=== PATIENT | female | born 1945 | race Caucasian/White ===

== ENCOUNTER 2023-12-25 09:56 | Outpatient (OUT) | payer MEDICARE, OTHER, SELFPAY ==
--- NOTE | 2023-12-25 10:17 | CT_ITS ---
The [address] [address] Patient Name: PILO GREGORY MRN: [id number] date: 1945 Sex: F Assigned Patient Location: CT Current Patient Location: CT Accession/Order Number: [id number] Exam Date: 12/25/2023 10:11 Report Date: 12/25/2023 15:33 At the request of: DAYANNA LOBO Procedure: CT chest wo con EXAM: CT chest wo con HISTORY: Multiple Pulmonary Nodules R91.8 COMPARISON: CT chest 11/03/2022. TECHNIQUE: CT imaging obtained through the chest without intravenous contrast. Coronal and axial MIP reformatted images obtained. Dose reduction techniques utilized. FINDINGS: Heart size is normal. No pericardial effusion. Enlarged pulmonary artery measuring 3.2 cm suggesting pulmonary hypertension. No thoracic aortic aneurysm. Extensive prominent mediastinal and hilar lymph nodes as on prior, most of which appear calcified. Central tracheobronchial tree is patent. No pleural effusion or pneumothorax. Innumerable centrilobular and tree-in-bud type nodules predominantly throughout the perihilar and midlung regions are significantly increased from prior, with some new areas of conglomerative opacity and postobstructive atelectasis. Nodules are overall increased, for example in the anterior right upper lobe on series 4 image 36, measuring 7 mm, previously 6 mm. Bones and soft tissues: No suspicious bone findings. Partially imaged upper abdomen: Limited. The spleen is enlarged measuring 13.7 cm AP. Calcified gallstones. CT/CT chest wo con IMPRESSION: Interval significant increase in scattered perihilar and midlung predominant centrilobular and tree-in-bud type nodules since 11/03/2022, with a superimposed acute on chronic infectious process not excluded, including atypical mycobacteria. Extensive prominent mostly calcified mediastinal and hilar lymph nodes suggesting granulomatous disease, especially sarcoidosis. Splenomegaly. Electronically authenticated by: LINDA PARADA Date: 12/25/2023 15:33
== END 2023-12-25 09:57 | disposition home or self-care (01) ==
LOC: CT 10:00
PROVIDERS: PCP Family Medicine; Visit Provider Internal Medicine
DX: R91.8 Other nonspecific abnormal finding of lung field (principal)
CPT/HCPCS: 71250

== ENCOUNTER 2024-01-01 12:11 | Outpatient (OUT) | payer MEDICARE, OTHER, SELFPAY ==
--- OUTSIDE RECORDS SUMMARY | 2024-01-01 12:14 | XMS_ITS | CCD ---
Author Name Unknown Address [address] [place] [address] Organization [facility] Care Team Providers Care Licensed Acupuncturist Name Role Phone EMILY YIN Unavailable Unavailable [...] KATERINA Aparicio Primary Care Unavailable TOMLIN, DR KATERINA Aparicio Admitting Unavailable TOMLIN, DR [...] Translations: [IODINE] Drug Allergy 11-03-2006 AOF, Unknown [facility] Repository Medications Current Medications Medication Drug Class(es) Dates Sig (Normalized) Sig (Original) [id number] 200 actuat albuterol 0.09 mg/actuat metered dose [...] STRUCTURES ARE THE SOLE RESPONSIBILITY OF THE FINANCIAL AID COUNSELOR SUBMITTING THE ORIGINAL REPORT (NOT THIS ADDENDUM) Electronically signed by: SUKHJINDER MOONEY MD Addendum Ends Patient Name: PILO GREGORY STUDY: CT CARDIAC SCORING; 03/24/2023 10:58 am INDICATION: htn, hyperlipedmia E78.5: Hyperlipidemia R07.89: Chest tightness. COMPARISON: None. ACCESSION NUMBER(S): [id number] ORDERING CLINICIAN: BROOKS CASTRO TECHNIQUE: Using prospective [...] al. JACC 2015 (http://dx.doi.org/10. 1016/j.j [email or web address]) Reading Tube Draw Helper: Dr. Valerio Morris, Date: 03/24/2023 11:23 am Electronically signed by: SUKHJINDER MOONEY MD Normal [facility] CT Cardiac Scoringon 023 CT Cardiac Scoring Normal [facility] 250 DO Work Phone: Tobacco Screening.on 023 Tobacco use status CPHS b) No [facility] 250 DO Work Phone: [facility] CARDIAC STRESS/REST INJE CTIONon 03-01-2023 [facility] CARDIAC STRESS/REST INJECTION Patient Name: PILO GREGORY STUDY: MYOCARDIAL PERFUSION STRESS TEST WITH EXERCISE CONVERTED TO LEXISCAN Performing facility: [facility], [address] [place] [address], [address] [place], [place] [id number] [facility] Provider: Brooks Castro MD, FACC PCP: Dr. Ellis Tomlin Supervising provider: Haley Osullivan MD, FACC INDICATION: Dyspnea Chest tightness HISTORY: Gender: F; Age: 77 y/o ; Height: 0 cm; Weight: 0 kg. Chest Pain; High Cholesterol; SOB; Denies smoking. COMPARISON: No comparison. ACCESSION NUMBER(S): [id number]; [id number]; [id number] ORDERING CLINICIAN: BROOKS CASTRO TECHNIQUE: ONE DAY [...] Electronically signed by: HALEY OSULLIVAN MD Normal [facility] No Panel Informationon 03-01 Normal -[facility] 250 DO Work Phone: LIPID PROFILEon 02-27-2023 CHOL-HDL RATIO NORM SEE BELOW Normal [facility] Comment on above: Result Comment: 3.3 - 4.4 LOW RISK 4.4 - 7.1 AVERAGE RISK 7.1 - 11.0 MODERATE RISK >11.0 HIGH RISK Performed By: #### L IPID #### [facility] [address] [place], [place] [address] Dr. Krystle Clement Cholesterol [Mass/Vol] 211 mg/dL Critically high <=200 [facility] Comment on above: Performed By: #### L IPID #### [facility] [address] [place], [place] [address] Dr. Krystle Clement Cholesterol in HDL [Mass/Vol] 52 mg/dL Normal 40-60 [facility] Comment on above: Performed By: #### L IPID #### [facility] [address] [place] [address] [address] Krystle Clement Cholesterol in LDL [Mass/Vol] 143.0 mg/dL Normal [facility] Comment on above: Performed By: #### L IPID #### [facility] [address] [place] [address] [address] Krystle Clement Cholesterol.total/ Cholesterol in HDL [Mass ratio] 4.1 {ratio} Normal [facility] Comment on above: Performed By: #### L IPID #### [facility] [address] [place] [address] [address] Krystle Clement HDL NORMAL > or = 60 mg/dl - LO W CARDIOVASCULAR RISK <40 mg/dl - HIGH CARDIOVASCULAR RISK Normal [facility] Comment on above: Performed By: #### L IPID #### [facility] [address] [place] [address] Dr. Krystle Clement LDL CALC NORMAL SEE BELOW Normal [facility] Comment on above: Result Comment: <100 mg/dl OPTIMAL 100 - 129 mg/dl NEAR OR ABOVE OPTIMAL 130 - 159 mg/dl BORDERLINE HIGH 160 - 189 mg/dl HIGH >190 mg/dl VERY HIGH Performed By: #### L IPID #### [facility] [address] [place] [address] [address] Krystle Clement Triglyceride [Mass/Vol] 80 mg/dL Normal <=150 [facility] Comment on above: Performed By: #### L IPID #### [facility] [address] [place] [address] Dr. Krystle Clement VLDL CALC 16.0 mg/dL Normal [facility] Comment on above: Performed By: #### L IPID #### [facility] [address] [place] [address] [address] Krystle Clement Office Visit (Cardiology)on 02-13-2023 [...] Status:Hold For - Scheduling,Retrospecti ve Authorization; Requested for:[id number]; Radiologist to Determine Optimal Study : Y What are the patient's signs and symptoms? : dyspnea chest tightness Chest tightness, Dyspnea, Hyperlipidemia Lipid Panel; Status:Active - Retrospective Authorization; Requested for:[id number]; Class 1 obesity with body mass index (BMI) of 30.0 to 30.9 in adult Healthy Weight Tips; Status:Complete - Retrospective Authorization; Done: [id number] Some eating tips that can help you lose weight.; Status:Complete - Retrospective Authorization; Done: [id number] Dyspnea IO EKG Electrocardiogram- 12 Lead; Status:Complete; Done: [id number] SocHx: Never a smoker Tobacco Use Screening; Status:Complete; Done: [id number] Tobacco Use Screening; Status:Complete; Done: [id number] Patient Instructions Please bring all medicines, vitamins, [...] times, but not consistently, and that the stationary engineer felt that her shortness of breath is [...] echocardiogram that was done on 01/16/2023 at [facility]. Assessment: 1. 77-year-old with exertional shortness [...] long hist (more content not included)... Normal [facility] Tobacco Screening.on 023 Adult depression screening assessment No [facility] 250 DO Work Phone: Fall risk assessment a) No falls within the last year [facility] 250 DO Work Phone: Tobacco use status CPHS b) No [facility] 250 DO Work Phone: ECHOCARDIO M/2D COMPLETEon 0 01-16-2023 ECHOCARDIO M/2D COMPLETE Patient: PILO GREGORY Exam Date: 01/16/2023 : 1945 Gender:F Ordering : DR KATERINA TOMLIN M.D. Admission #: [id number] Family : Order #: [id number] CLICK HERE TO VIEW EXAM ECHOCARDIOGRAM REPORT [...] Stern M.D. on 01/16/2023 at 14:53 Normal [facility] B-Type Natriuretic Peptideon 01-04-2023 B-Type Natriuretic Peptide see note [facility] Other B-Type Natriuretic Peptide 582.0 pg/ml <=1,800.0 pg/ml [facility] Other BNPon 01-04-2023 Natriuretic peptide B (Bld) [Mass/Vol] 582.0 pg/mL Normal <=1,800.0 [facility] Comment on above: Performed By: #### B TOPPIECE CHOPPER, BMP #### [facility] [address] [place] [address] Dr. Krystle Clement CBC AUTO DIFFon 01-04-2023 BASO # 0.0 103/ul Normal 0.0-0.1 [facility] Comment on above: Performed By: #### C BC #### [facility] [address] [place] [address] Dr. Krystle Clement Basophils/100 WBC (Bld) 0.7 % Normal 0.2-2.0 [facility] Comment on above: Performed By: #### C BC #### [facility] [address] [place] [address] Dr. Kyrstle Clement EO # 0.4 103/ul Normal 0.0-0.7 [facility] Comment on above: Performed By: #### C BC #### [facility] [address] [place] [address] Dr. Krystle Clement Eosinophils/100 WBC (Bld) 5.7 % Normal 0.9-7.0 [facility] Comment on above: Performed By: #### C BC #### [facility] [address] [place] [address] Dr. Krystle Clement Erythrocyte distribution width (RBC) [Ratio] 12.9 % Normal 11.0-15.0 [facility] Comment on above: Performed By: #### C BC #### [facility] [address] [place] [address] Dr. Krystle Clement Hematocrit (Bld) [Volume fraction] 44.3 % Normal 36.0-48.0 [facility] Comment on above: Performed By: #### C BC #### [facility] [address] [place] [address] Dr. Krystle Clement Hemoglobin (Bld) [Mass/Vol] 15.0 g/dL Normal 12.0-16.0 [facility] Comment on above: Performed By: #### C BC #### [facility] [address] [place] [address] Dr. Krystle Clement IG # 0.02 10e3/ul Normal 0.00-0.03 [facility] Comment on above: Performed By: #### C BC #### [facility] [address] [place] [address] Dr. Krystle Clement IG % 0.3 % Normal 0.0-0.5 [facility] Comment on above: Performed By: #### C BC #### [facility] [address] [place] [address] Dr. Krystle Clement LYMPH # 1.1 103/ul Critically low 1.2-3.8 [facility] Comment on above: Performed By: #### C BC #### [facility] [address] [place] [address] Dr. Krystle Clement Lymphocytes/100 WBC (Bld) 18.1 % Critically low 20.5-60.0 [facility] Comment on above: Performed By: #### C BC #### [facility] [address] [place] [address] Dr. Krystle Clement MANUAL DIFF REQ NO Normal [facility] Comment on above: Performed By: #### C BC #### [facility] [address] [place] [address] Dr. Krystle Clement MCH (RBC) [Entitic mass] 30.9 pg Normal 26.7-34.0 [facility] Comment on above: Performed By: #### C BC #### [facility] [address] [place] [address] Dr. Krystle Clement MCHC (RBC) [Mass/Vol] 33.9 g/dL Normal 29.9-35.2 [facility] Comment on above: Performed By: #### C BC #### [facility] [address] [place] [address] Dr. Krystle Clement MCV (RBC) [Entitic vol] 91.3 fL Normal 81.0-99.0 [facility] Comment on above: Performed By: #### C BC #### [facility] [address] [place] [address] Dr. Krystle Clement MONO # 0.7 103/ul Normal 0.3-0.8 [facility] Comment on above: Performed By: #### C BC #### [facility] [address] [place] [address] Dr. Krystle Clement Monocytes/100 WBC (Bld) 11.7 % Normal 1.7-12.0 [facility] Comment on above: Performed By: #### C BC #### [facility] [address] [place] [address] Dr. Krystle Clement NEUT # 3.9 103/ul Normal 1.4-6.5 [facility] Comment on above: Performed By: #### C BC #### [facility] [address] [place] [address] Dr. Krystle Clement Neutrophils/100 WBC (Bld) 63.5 % Normal 43.0-75.0 [facility] Comment on above: Performed By: #### C BC #### [facility] [address] [place] [address] Dr. Krystle Clement Platelet mean volume (Bld) [Entitic vol] 8.8 fL Critically low 9.5-13.5 [facility] Comment on above: Performed By: #### C BC #### [facility] [address] [place] [address] Dr. Krystle Clement PLT 232 103/ul Normal 150-450 [facility] Comment on above: Performed By: #### C BC #### [facility] [address] [place] [address] Dr. Krystle Clement RBC 4.85 106/ul Normal 4.20-5.40 [facility] Comment on above: Performed By: #### C BC #### [facility] [address] [place] [address] Dr. Krystle Clement WBC 6.1 103/ul Normal 4.0-11.0 [facility] Comment on above: Performed By: #### C BC #### [facility] [address] [place] [address] Dr. Krystle Clement PROF CHEM 8 (BAS METB)on Anion gap [Moles/Vol] 11.6 mmol/L Normal [facility] Comment on above: Performed By: #### B TOPPIECE CHOPPER, BMP #### [facility] [address] [place] [address] Dr. Krystle Clement Calcium [Mass/Vol] 9.5 mg/dL Normal 8.5-10.1 [facility] [place] Comment on above: Performed By: #### B TOPPIECE CHOPPER, BMP #### [facility] [address] [place] [address] [address] Krystle Clement Chloride [Moles/Vol] 110 mmol/L Critically high 98-107 [facility] Comment on above: Performed By: #### B TOPPIECE CHOPPER, BMP #### [facility] [address] [place] [address] Dr. Krystle Clement CO2 [Moles/Vol] 29.7 mmol/L Normal 21.0-32.0 [facility] Comment on above: Performed By: #### B TOPPIECE CHOPPER, BMP #### [facility] [address] [place] [address] Dr. Krystle Clement Creatinine [Mass/Vol] 1.11 mg/dL Critically high 0.55-1.02 [facility] Comment on above: Performed By: #### B TOPPIECE CHOPPER, BMP #### [facility] [address] [place] [address] Dr. Krystle Clement EGFR-AF JAPANESE 58 mL/min/1.73m2 Critically low >=60 [facility] Comment on above: Performed By: #### B TOPPIECE CHOPPER, BMP #### [facility] [address] [place] [address] Dr. Krystle Clement EGFR-NON AF JAPANESE 48 mL/min/1.73m2 Critically low >=60 [facility] Comment on above: Performed By: #### B TOPPIECE CHOPPER, BMP #### [facility] [address] [place] [address] Dr. Krystle Clement Glucose [Mass/Vol] 77 mg/dL Normal 74-106 [facility] Comment on above: Performed By: #### B TOPPIECE CHOPPER, BMP #### [facility] [address] [place], [place] [id number] Dr. Krystle Clement Potassium [Moles/Vol] 4.3 mmol/L Normal 3.5-5.1 [facility] Comment on above: Performed By: #### B TOPPIECE CHOPPER, BMP #### [facility] [address] [place] [address] Dr. Krystle Clement Sodium [Moles/Vol] 147 mmol/L Critically high 136-145 [facility] Comment on above: Performed By: #### B TOPPIECE CHOPPER, BMP #### [facility] [address] [place] [address] Dr. Krystle Clement Urea nitrogen [Mass/Vol] 16.0 mg/dL Normal 7.0-18.0 [facility] Comment on above: Performed By: #### B TOPPIECE CHOPPER, BMP #### [facility] [address] [place] [address] Dr. Krystle Clement Urea nitrogen/Creatinin e [Mass ratio] 14.4 mg/mg Normal [facility] Comment on above: Performed By: #### B TOPPIECE CHOPPER, BMP #### [facility] [address] [place] [address] CHEST WO CONon [...] by: BARBARA CHO Date: 2022-11-03 15:55 Normal [facility] MG MAMM SCREEN 3D ITALIA CADon 11-03-2022 MG MAMM SCREEN 3D ITALIA CAD Patient: PILO GREGORY Exam Date: 11/03/2022 : 1945 Gender:F Ordering : DR KATERINA TOMLIN M.D. Admission #: [id number] Family : Order #: [id number] CLICK HERE TO VIEW EXAM RADIOLOGY REPORT [...] breast cancer at age 59. LOCATION: [facility] BREAST COMPOSITION: Scattered areas fibroglandular density. [...] MD on 11/03/2022 at 15:57 Normal [facility] CT CHEST WO CONon 03-10-2022 CT [...] YFN SELF Date: 2022-03-10 10:46 Normal [facility] Superficial Wound Cultureon 11-23-2018 Superficial Wound [...] RESISTANT TO ALL B-LACTAM DRUGS. PERFORMED BY: [facility] [address] [id number] PATHOLOGIST [employer]ING [employer] SET UP OPERATOR VERTICAL CRISTHIAN REYEZ M.D. Normal [facility] Comment on above: Performed By: #### C USUP #### [place] [id number] [facility] Vital Signs Date Time Vital Sign Value Performing Clinician Facility 04-07-2023 13:30-0400 Body height 162.56 cm Katerina Tomlin Other [facility] [employer] Other 04-07-2023 13:30-0400 Body mass index (BMI) [Ratio] 29.69 kg/m2 Katerina Tomlin Other [facility] Other 04-07-2023 13:30-0400 Body weight 78.47 kg Katerina Tomlin Other [facility] Other 04-07-2023 13:30-0400 Diastolic blood pressure 76 mm[Hg] Katerina Tomlin Other [facility] Other 04-07-2023 13:30-0400 Systolic blood pressure 161 mm[Hg] Katerina Tomlin Other [facility] Other 03-20-2023 16:02-0400 Diastolic blood pressure 82 mm[Hg] Katerina Tomlin Work Phone: [facility] 250 DO Work Phone: 03-20-2023 16:02-0400 Diastolic blood pressure 80 mm[Hg] Katerina Tomlin Work Phone: [facility] 250 DO Work Phone: 03-20-2023 16:02-0400 Systolic blood pressure 138 mm[Hg] Katerina Tomlin Work Phone: [facility] 250 DO Work Phone: 03-20-2023 15:32-0400 Body height 160.02 cm Katerina Tomlin Work Phone: [facility] 250 DO Work Phone: 03-20-2023 15:32-0400 Body mass index (BMI) [Ratio] 30.47 kg/m2 Katerina Tomlin Work Phone: [facility] 250 DO Work Phone: 03-20-2023 15:32-0400 Body surface area Derived from formula 1.81 m2 Kaetrina Tomlin Work Phone: [facility] 250 DO Work Phone: 03-20-2023 15:32-0400 Body weight 78.02 kg Katerina Tomlin Work Phone: [facility] 250 DO Work Phone: 03-20-2023 15:32-0400 Diastolic blood pressure 86 mm[Hg] Katerina Tomlin Work Phone: [facility] 250 DO Work Phone: 03-20-2023 15:32-0400 Heart rate 74 /min Katerina Tomlin Work Phone: [facility] 250 DO Work Phone: 03-20-2023 15:32-0400 Systolic blood pressure 144 mm[Hg] Katerina Tomlin Work Phone: [facility] 250 DO Work Phone: 02-27-2023 14:47-0400 143 1 Katerina Tomlin Work Phone: [facility] 250 DO Work Phone: Comment on above: FSLDL 02-13-2023 09:36-0400 Diastolic blood pressure 70 mm[Hg] Katerina Tomlin Work Phone: [facility] 250 DO Work Phone: 02-13-2023 09:36-0400 Systolic blood pressure 138 mm[Hg] Katerina Tomlin Work Phone: [facility] 250 DO Work Phone: 02-13-2023 09:35-0400 Body height 160.02 cm Katerina Tomlin Work Phone: [facility] 250 DO Work Phone: 02-13-2023 09:35-0400 Body mass index (BMI) [Ratio] 30.65 kg/m2 Katerina Tomlin Work Phone: [facility] 250 DO Work Phone: 02-13-2023 09:35-0400 Body surface area Derived from formula 1.82 m2 Katerina Tomlin Work Phone: [facility] 250 DO Work Phone: 02-13-2023 09:35-0400 Body weight 78.47 kg Katerina Tomlin Work Phone: [facility] 250 DO Work Phone: 02-13-2023 09:35-0400 Diastolic blood pressure 72 mm[Hg] Katerina Tomlin Work Phone: [facility] 250 DO Work Phone: 02-13-2023 09:35-0400 Heart rate 63 /min Katerina Tomlin Work Phone: [facility] 250 DO Work Phone: 02-13-2023 09:35-0400 Systolic blood pressure 130 mm[Hg] Katerina Tomlin Work Phone: [facility] 250 DO Work Phone: 01-02-2023 09:30-0500 Body height 162.56 cm Katerina Tomlin Other [facility] Other 01-02-2023 09:30-0500 Body mass index (BMI) [Ratio] 29.52 kg/m2 Katerina Tomlin Other [facility] Other 01-02-2023 09:30-0500 Body weight 78.02 kg Katerina Tomlin Other [facility] Other 01-02-2023 09:30-0500 Diastolic blood pressure 70 mm[Hg] Katerina Tomlin Other [facility] Other 01-02-2023 09:30-0500 SaO2% (BldA) [Mass fraction] 98 % Katerina Tomlin Other [facility] Other 01-02-2023 09:30-0500 Systolic blood pressure 142 mm[Hg] Katerina Tomlin Other [facility] Other Encounters Encounter Date Encounter Type Care Provider Facility Start: 11-28-2023 End: 11-28-2023 ambulatory CHOCO A PETITTI Not Available Start: 10-03-2023 End: 10-03-2023 ambulatory CHOCO A PETITTI Not Available Start: 04-07-2023 End: 04-07-2023 ambulatory Katerina Tomlin Other [facility] Other Start: 04-07-2023 Patient encounter procedure Katerina Tomlin [facility] [place] [facility] Start: 03-28-2023 Chart Update Katerina Tomlin Work Phone: [facility] 250 DO Work Phone: Start: 03-24-2023 Chart Update Katerina Tomlin Work Phone: [facility] 250 DO Work Phone: Start: 03-24-2023 ambulatory Brooks Javieremmie Facility: [id number] Start: 03-02-2023 Chart Update Katerina Tomlin Work Phone: [facility] 250 DO Work Phone: Start: 03-01-2023 ambulatory Brooks Janna0emmie Facility: [id number] Start: 02-27-2023 End: 02-28-2023 ambulatory [facility] Facility: Start: 02-14-2023 End: 02-14-2023 ambulatory Katerina Tomlin Other [facility] Other Start: 02-14-2023 Telephone encounter Katerina Tomlin [facility] [place] [facility] Start: 02-13-2023 Office consultation new/estab patient 60 min Katerina Tomlin Work Phone: [facility] 250 DO Work Phone: Start: 02-13-2023 ambulatory MD BROOKS CASTRO Facilit y: Start: 01-18-[address] Katerina Tomlin Facility:[facility] Start: 01-17-2023 End: 01-17-2023 ambulatory Katerina Tomlin Other [facility] Other Start: 01-17-2023 Telephone encounter Katerina Tomlin [facility] Start: 01-16-2023 End: 01-17-[address] KATERINA TOMLIN Facility: Start: 01-05-2023 End: 01-05-2023 ambulatory Katerina Tomlin Other [facility] Other Start: 01-05-2023 Telephone encounter Katerina Tomlin [facility] Start: 01-04-2023 End: 01-05-[address] KATERINA TOMLIN Facility: Start: 01-02-2023 End: 01-02-2023 ambulatory Katerina Tomlin Other [facility] Other Start: 01-02-2023 Office outpatient vi sit 15 minutes Katerina Tomlin [facility] Start: 11-03-2022 End: 11-04-2022 ambulatory DAYANNA LOBO . Facility: Start: 03-10-2022 End: 03-11-2022 ambulatory DAYANNA LOBO . Facility: Start: 11-23-2018 End: 11-23-2018 Patient encounter procedure Mello Dang Facility:[facility] Start: 10-17-2018 End: 10-17-2018 Patient encounter procedure EMILY YIN [facility] Procedures Date Procedure Procedure Detail Performing Clinician Appendectomy Katerina Tomlin Work Phone: section Katerina ochoa Work Phone: Colonoscopy Katerina Tomlin Work Phone: Tonsillectomy and adenoidectomy Katerina Tomlin Work Phone: Plan of Treatment Date Care Activity Detail Author Start: 03-20-2023 FUV, Provider: Brooks Castro, Status: Pen, Time: 3:30 PM FUV, Provider: Brooks Castro, Status: Pen, Time: 3:30 PM [facility] 250 DO Work Phone: Start: 03-01-2023 STRESS NUC, Provider : ARACELI CHERRYI NUCLEAR 01,[id number], Status: Pen, Time: 8:00 AM STRESS NUC, Provider: ARACELI CHERRYI NUCLEAR 01,[id number], Status: Pen, Time: 8:00 AM [facility] 250 DO Work Phone: Immunizations Immunization Date Immunization Notes Care Provider Fa cilijoaquin 10-25-2021 Pfizer-BioNTech COVI D-19 Vacc 30 MCG/0.3ML Intramuscular Suspension Katerina Tomlin Work Phone: [facility] 250 DO Work Phone: 03-25-2021 Pfizer-BioNTech COVI D-19 Vacc 30 MCG/0.3ML Intramuscular Suspension Katerina Tmolin Work Phone: [facility] 250 DO Work Phone: 03-01-2021 [employer] COVI D-19 Vacc 30 MCG/0.3ML Intramuscular Suspension Katerina Tomlin Work Phone: [facility] 250 DO Work Phone: 04-09-2015 pneumococcal conjuga te vaccine, 13 valent Katerina Tomlin Work Phone: [facility] 250 DO Work Phone: 08-31-2008 pneumococcal polysaccharide vaccine, 23 valent Katerina Tomlin Work Phone: [facility] 250 DO Work Phone: Payers Date Payer Category Payer Self-pay 1958 Medicare [id number] 1958 Unknown [id number] 1945 Unknown [id number] 2.16. [id number] 1945 Unknown [id number] 2.16.84 [id number] 1945 Unknown [id number] 2.16.84 [id number] 1945 Unknown [id number] 2.16.84 [id number] 1945 Unknown [id number] 2.16.84 [id number] 1945 Unknown [id number] 2.16.84 [id number] 1945 Unknown [id number] 2.16.84 [id number] 1945 Unknown [id number] 2.16.84 [id number] 1945 Unknown [id number] 2.16.8 [id number] 1945 Unknown [id number] 1945 Unknown [id number] 2.16.84 [id number] 1945 Unknown [id number] Unknown [id number] Unknown Unknown [id number] Social History Date Type Detail Facility Unknown if ever smoked [facility] Other Sex Assigned At Sex Assigned At Bir th [facility] Other [facility] Work Phone: Comment on above: couple weekly whiske y; coffee daily; Evaluation note 04-07-2023 Note Date & Type Note Facility 04-07-2023 Evaluation note Encounter Date Diagnosis Assessment Notes Mar, Inflamed seborrheic keratosis (ICD-10 - L82.0) cryotherapy on lesion [facility] Other Evaluation note 04-07-2023 Note Date & Type Note Facility 04-07-2023 Evaluation note Encounter Date Diagnosis Assessment Notes Mar, Inflamed seborrheic keratosis (ICD-10 - L82.0) cryotherapy on lesion. There is no tick bite. [facility] Other Evaluation note 01-17-2023 Note Date & Type Note Facility 01-17-2023 Evaluation note Encounter Date Diagnosis Assessment Notes Dec, Dyspnea, unspecified (ICD-10 - R06.00) Dec, Other abnormalities of breathing (ICD-10 - R06.89) Dec, Abnormal EKG (ICD-10 - R94.31) [facility] Other Evaluation note 01-02-2023 Note Date & Type Note Facility 01-02-2023 Evaluation note Encounter Date Diagnosis Assessment Notes Dec, Leg edema (ICD-10 - R60.0) Discussed differential including heart failure. Pt would like to get tests to have a cause for her ongoing symptoms. Dec, Dyspnea on exertion (ICD-10 - R06.09) PFT this week. Complete tests as ordered. Pt agrees. [facility] Other Chief complaint Narrative - Reported Note Date & Type Note Facility Chief complaint Narrative - Reported PILO GREGORY is being seen for a consultation for. [facility] 250 DO Work Phone: Evaluation note Note Date & Type Note Facility Evaluation note No Information [employer] Other History general Narrative - Reported Note [...] History T&A Hospitalization History SEE SURGICAL HX [facility] Other History of Present illness Narrative Note [...] times, but not consistently, and that the stationary engineer felt that her shortness of breath is [...] echocardiogram that was done on 01/16/2023 at [facility].Assessment:1. 77-year-old with exertional shortness of breath [...] stress perfusion imaging study, may switch to [employer] Myoview as needed3. We talked about shortness [...] call if further questions arise,Sincerely,Brooks Castro MD [facility] 250 DO Work Phone: Summary Purpose Family [...] 1 Abnormal EKG (R94.31 ) Referral Organization [facility] Referring Provider First Name Katerina Referring Provider Last Name Nabor Referring Provider Specialty [facility] Referred Organization [facility] enter Referred Provider Brandt Ramírez Referred Address [address] ,[place], [place],[address] Referred Provider Specialty Cardiology Referral Priority Routine General Notes Bindu Thomas 12:56:01 PM >received today, attachments made, notes locked, and referral faxed Additional Source Comments INFORMATION SOURCE (unrecogn ized section and content) DATE CREATED AUTHOR 10/20/2018 [facility] DATE CREATED AUTHOR AUTHOR'S MYRIAMIZ ATGABRIELLE 12/13/2018 [facility] DATE CREATED AUTHOR AUTHOR'S ORGANIZ ATION 02/13/2023 [facility] DATE CREATED AUTHOR AUTHOR'S ORGANIZ ATION 02/14/2023 [employer] DATE CREATED AUTHOR AUTHOR'S ORGANIZ ATION 03/03/2023 [facility] DATE CREATED AUTHOR AUTHOR'S ORGANIZ ATION 04/07/2023 [facility] DATE CREATED AUTHOR AUTHOR'S ORGANIZ ATION 11/29/2023 [facility] EPIC REASON FOR VISIT (unrecogniz [...] BE BASED ON THE PRIMARY CLINICAL RECORDS. [facility] [employer] provides no warranty or guarantee of the accuracy or completeness of information in this document.
[2024-01-01 13:29] LABS: C Reactive Protein 1.37 mg/dL (<=0.50)
[2024-01-01 13:32] LABS: Erythrocyte Sedimentation Rate 25 mm/hr (<=30)
[2024-01-02 08:12] LABS: Rheumatoid Factor (RF) 10.3 IU/mL (<14.0)
[2024-01-02 11:09] LABS: ANA Direct Negative (Negative); Antiscleroderma-70 Antibodies <0.2 AI (0.0-0.9)
[2024-01-02 13:09] LABS: Anti-CCP Ab, IgG/IgA 0 units (0-19)
[2024-01-02 14:09] LABS: Angiotensin-Converting Enzyme 63 U/L (14-82)
[2024-01-03 20:08] LABS: Anti-MPO Antibodies <0.2 units (0.0-0.9); Anti-PR3 Antibodies <0.2 units (0.0-0.9); Cytoplasmic (C-ANCA) <1:20 titer (Neg:<1:20); Perinuclear (P-ANCA) <1:20 titer (Neg:<1:20)
[2024-01-04 17:10] LABS: Aspergillus flavus Negative (Neg:<1:1); Aspergillus fumigatus Negative (Neg:<1:1); Aspergillus niger Negative (Neg:<1:1)
[2024-01-05 16:10] LABS: Blastomyces Abs, Qn, DID Negative (Neg:<1:1)
[2024-01-08 17:10] LABS: Histoplasma Gal'mannan Ag Ur Negative (<0.5 ng/mL)
== END 2024-01-01 12:12 | disposition home or self-care (01) ==
LOC: LAB 12:12
PROVIDERS: PCP Family Medicine; Visit Provider Internal Medicine
DX: R91.8 Other nonspecific abnormal finding of lung field (principal)
CPT/HCPCS: 36415; 82164; 83516; 85652; 86037; 86038; 86140; 86200; 86235; 86431; 86606; 86612; 86698; 87385

== ENCOUNTER 2024-01-01 12:11 | Outpatient (OUT) | payer MEDICARE, OTHER, SELFPAY ==
--- OUTSIDE RECORDS SUMMARY | 2024-01-01 12:13 | XMS_ITS | CCD ---
Author Name Unknown Address [address] [place] [address] Organization [facility] Care Team Providers Care Supervisor Plastic Sheets Name Role Phone EMILY YIN Unavailable Unavailable Mello Dang Attending Unavailable Katerina Tomlin Unavailable Katerina Tomlin Unavailable Unavailable Unavailable MD BROOKS CASTRO Attending Unavailable Nabor, Dr. Katerina Nina Referring Unav ailable Tomlin, Dr. Katerina Nina Primary Care Unav ailable Tomlin, Dr. Katerina Nina Primary Care Unav ailable MISC, DOCTOR Admitting Unavailable NABOR, DR KATERINA Aparicio Primary Care Unavailable MISC, DOCTOR Attending Unavailable MISC, DOCTOR Consulting Unavailable NABOR, DR KATERINA Aparicio Primary Care Unavailable TOMLIN, DR AKTERINA Aparciio Admitting Unavailable TOMLIN, DR KATERINA Aparicio Attending Unavailable TOMLIN, DR KATERINA Aparicio Consulting Unavailable NABOR, DR KATERINA Aparicio Primary Care Unavailable NABOR, DR KATERINA Aparicio Admitting Unavailable TOMLIN, DR KATERINA Aparicio Attending Unavailable TOMLIN, DR KATERINA Aparicio Consulting Unavailable SAMSA ., DAYANNA Admitting Unavailable SAMSA ., DAYANNA Attending Unavailable SAMSA ., DAYANNA Consulting Unavailable NABOR, DR KATERINA Aparicio Primary Care Unavailable NABOR, DR KATERINA Aparicio Admitting Unavailable NABOR, DR KATERINA Aparicio Attending Unavailable MARQUIS, DR BARBARA Galvan Consulting Unavailable NABOR, DR KATERINA Aparicio Primary Care Unavailable NABOR, DR KATERINA Aparicio Consulting Unavailable SAMSA ., DAYANNA Admitting Unavailable SAMSA ., DAYANNA Attending Unavailable MARQUIS, DR BARBARA Galvan Consulting Unavailable NABOR, DR KATERINA Aparicio Primary Care Unavailable SAMSA ., DAYANNA Consulting Unavailable SAMSA ., DAYANNA Attending Unavailable SAMSA ., DAYANNA Admitting Unavailable Yfn Self Consulting Unavailable NABOR, DR KATERINA Aparicio Primary Care Unavailable SAMSA ., DAYANNA Consulting Unavailable Brooks Marquez Attending Unavailable Dr. Katerina Tomlin Primary Care Unav ailable Brooks Marquez Attending Unavailable Dr. Katerina Tomlin Primary Care Unav ailable CHOCO DUVAL Attending Unavailable CHOCO DUVAL Attending Unavailable Allergies Allergy Classification Reported Allergen(s) Allergy Type Date of Onset Reaction(s) Facility (7 sources) Iodine; Translations: [IODINE] Drug Allergy 11-03-2006 AOF, Unknown [facility] Repository Medications Current Medications Medication Drug Class(es) Dates Sig (Normalized) Sig (Original) [id number] 200 actuat albuterol 0.09 mg/actuat metered dose inhaler (6 sources) beta2-Adrenergic Agonist take 1 puff(s) by inhalation every four hours as needed Albuterol Sulfate HFA 108 (90 Base) MCG/ACT 1 puff as needed Inhalation every 4 hrs Active Completed/Discontinued Medications Medication Drug Class(es) Dates Sig (Normalized) Sig (Original) Eye Drops SOLN (4 sources) Eye Drops SOLN a s directed Quantity: 0 Refills: 0 Ordered: 13-Feb-2023 DO Active loratadine 10 mg oral tablet (4 sources) take 1 tablet by mouth once daily Loratadine 10 MG Oral Tablet TAKE 1 TABLET DAILY. Quantity: 0 Refills: 0 Ordered: 13-Feb-2023 DO Active nitroglycerin 0.4 mg sublingual tablet (2 sources) Nitrate Vasodilator Start: 02-13-2023 Nitroglycerin 0.4 MG Sublingual Tablet Sublingual PLACE 1 TABLET UNDER THE TONGUE EVERY 5 MINUTES FOR UP TO 3 DOSES NEEDED FOR CHEST PAIN.CALL 911 IF PAIN PERSISTS. Quantity: 25 Refills: 3 Ordered: 13-Feb-2023 Brooks Castro MD Start : 13-Feb-2023 Active Problems Active Problems Problem Classification Problem Date Documented Date Episodic/Chronic Abdominal pain (6 sources) Epigastric pain; Translations: [Epigastric pain] Episodic Administrative/social admission (2 sources) Follow-up status; Translations: [Other specified counseling] Episodic Chronic kidney disease (4 sources) Chronic kidney disease stage 3A ; Translations: [Chronic kidney disease, Stage III (moderate)] Chronic Disorders of lipid metabolism (8 sources) Hyperlipidemia; Translations: [Other and unspecified hyperlipidemia] Onset: 03-02-2023 Chronic Nonspecific chest pain (12 sources) Tight chest; Translations: [Other chest pain] Onset: 02-27-2023 Episodic Other connective tissue disease (5 sources) Muscle pain; Translations: [Myalgia, unspecified site] Episodic Other connective tissue disease (1 source) Myalgia, unspecified site; Translations: [Myalgia] Episodic Other infections; including parasitic (4 sources) Personal history of other infectious and parasitic diseases; Translations: [Personal history of COVID-19] Episodic Other lower respiratory disease (6 sources) Dyspnea on exertion; Translations: [Other forms of dyspnea] Episodic Other lower respiratory disease (11 sources) Dyspnea; Translations: [Shortness of breath] Onset: 01-04-2023 Episodic Other lower respiratory disease (5 sources) Multiple nodules of lung; Translations: [Other nonspecific abnormal finding of lung field] Episodic Other lower respiratory disease (6 sources) Lung field abnormal; Translations: [Other nonspecific abnormal finding of lung field] Episodic Other lower respiratory disease (2 sources) Other forms of dyspnea; Translations: [OTHER FORMS OF DYSPNEA] Onset: 01-21-2023 Episodic Other lower respiratory disease (4 sources) Dyspnea, unspecified; Translations: [DYSPNEA UNSPECIFIED] Onset: 03-01-2023 Episodic Other lower respiratory disease (1 source) Other abnormalities of breathing Episodic Other lower respiratory disease (3 sources) Shortness of breath; Translations: [SHORTNESS OF BREATH] Onset: 01-07-2023 Episodic Other lower respiratory disease (6 sources) Other nonspecific abnormal finding of lung field; Translations: [OTH NONSPECIFIC ABN FIND LNG FIELD] Onset: 03-10-2022 Episodic Other lower respiratory disease (2 sources) Restrictive lung disease; Translations: [Other diseases of lung, not elsewhere classified] Episodic Other nutritional; endocrine; and metabolic disorders (4 sources) Obesity; Translations: [Obesity, unspecified] Chronic Other skin disorders (2 sources) Inflamed seborrheic keratosis Episodic Residual codes; unclassified (1 source) Kidney donor; Translations: [Kidney donor] Onset: 10-17-2018 Episodic Residual codes; unclassified (5 sources) Localized edema; Translations: [LOCALIZED EDEMA] Onset: 01-16-2023 Episodic Unclassified (1 source) T81.49XA - Infection following a procedure, other surgical site, initial encounter; Translations: [T81.49XA - Infection following a procedure, other surgical site, initial encounter] Onset: 11-23-2018 Past or Other Problems Problem Classification Problem Date Documented Date Episodic/Chronic Other screening for suspected conditions (not mental disorders or infectious disease) (5 sources) Abnormal electrocardiogram [ECG] [EKG]; Translations: [Encounter for screening mammogram for malignant neoplasm of breast] Onset: 11-03-2022 Episodic Residual codes; unclassified (1 source) Family history of malignant neoplasm of breast; Translations: [FAMILY HX MALIG NEOPLASM OF BREAST] Onset: 11-04-2022 Episodic Unclassified (6 sources) History of COVID-19; Translations: [History of COVID-19] Unclassified (4 sources) Patient status finding; Translations: [Patient new to provider] Unclassified (4 sources) Never smoked tobacco; Translations: [Never a smoker] Results Test Name Value Interpretation Reference Range Facility CT CARDIAC SCORINGon 023 CT CARDIAC SCORING Addendum Begins Patient Name: PILO GREGORY ADDENDUM: NON-CARDIOVASCULAR FINDINGS INCLUDED LUNGS, AIRWAYS AND PLEURA Endotracheal / endobronchial lesion: Negative Nodule: Too numerous to count variably sized but mostly subcentimeter nodules scattered fairly symmetrically in both include lungs. Minority are calcified Airspace disease: Scattered nonspecific patchy airspace ground-glass Pleural effusion: Negative Pneumothorax: Negative Other: No acute or contributory unanticipated findings INCLUDED NON-CARDIOVASCULAR BREANNE AND MEDIASTINUM Adenopathy: Calcified and noncalcified enlarged bilateral hilar and subcarinal nodes Included esophagus: Unremarkable Other: No acute or contributory unanticipated findings INCLUDED BONES: No acute skeletal findings, noting less sensitivity and specificity without dedicated sagittal and coronal reformatted series. INCLUDED CHEST WALL No acute or contributory unanticipated findings INCLUDED UPPER ABDOMEN No acute or contributory unanticipated findings ------- NON-CARDIOVASCULAR IMPRESSION NUMEROUS VARIABLY SIZED BUT MOSTLY 1 CM AND SMALLER PULMONARY NODULES, ONLY MINORITY OF WHICH ARE CALCIFIED CALCIFIED AND NONCALCIFIED BILATERAL HILAR AND SUBCARINAL ADENOPATHY NEAR TERM COMPLETE CHEST CT (PREFERABLY WITH INTRAVENOUS CONTRAST IF POSSIBLE) RECOMMENDED FOR FURTHER EVALUATION OF THE REMAINDER OF THE CHEST NOTE THIS ADDENDUM IS SOLELY FOR INTERPRETATION OF ANATOMY OUTSIDE THE CARDIOVASCULAR SYSTEM. INTERPRETATION OF AND REPORTING OF THE CARDIOVASCULAR STRUCTURES ARE THE SOLE RESPONSIBILITY OF THE PRESCHOOL AIDE SUBMITTING THE ORIGINAL REPORT (NOT THIS ADDENDUM) Electronically signed by: SUKHJINDER MOONEY MD Addendum Ends Patient Name: PILO GREGORY STUDY: CT CARDIAC SCORING; 03/24/2023 10:58 am INDICATION: htn, hyperlipedmia E78.5: Hyperlipidemia R07.89: Chest tightness. COMPARISON: None. ACCESSION NUMBER(S): [id number] ORDERING CLINICIAN: BROOKS CASTRO TECHNIQUE: Using prospective ECG gating, CT scan of the coronary arteries was performed without intravenous contrast. Coronary calcium scoring was performed according to the method of Agatston. CT Dose-Length Product (DLP): 74 mGy*cm CT Dose Reduction Employed: Yes, prospective gating, iterative reconstruction. FINDINGS: The score and distribution of calcium in the coronary arteries is as follows: LM 0 LAD 3 LCx 35 RCA 15 Total 53 The visualized ascending thoracic aorta measures 3.5 cm in diameter. The heart is normal in size. No pericardial effusion is present. The main pulmonary artery, right and left pulmonary artery are normal in size. IMPRESSION: 1. Coronary artery calcium score of 53*. 2. LINK 48th percentile for age, gender, and race in asymptomatic patients. *Coronary Artery Agatston score Score risk Very low 1-99 Mildly increased 100-299 Moderately increased >300 Moderate to severely increased >800 Shyanne et al. JCCT 2016 (http://dx.doi.org/10. 1016/j.jcct.2016.11.00 3) LINK Percentile In general, greater than 75th percentile for age, gender, and race is considered to be a higher relative risk and higher lifetime risk condition. Greater than 75th percentile=moderate to severely increased relative risk irrespective of the score. Advise using LINK 10 year CHD risk calculator below for better discrimination of risk. LINK 10-Year CHD Risk with Coronary Artery Calcification can be calcuate using link below https://www.link-nhlbi .org/MESACHDRisk/MesaR iskScore/RiskScore.asp x Kirsten olvera al. JACC 2015 (http://dx.doi.org/10. 1016/j.j acc.2015.08.035) [employer] [place]: Dr. Valerio Morris, Date: 03/24/2023 11:23 am Electronically signed by: SUKHJINDER MOONEY MD Normal [facility] CT Cardiac Scoringon 023 CT Cardiac Scoring Normal [facility] 250 DO Work Phone: Tobacco Screening.on 023 Tobacco use status [facility] b) No [facility] 250 DO Work Phone: [facility] CARDIAC STRESS/REST INJE CTIONon 03-01-2023 [facility] CARDIAC STRESS/REST INJECTION Patient Name: PILO GREGORY STUDY: MYOCARDIAL PERFUSION STRESS TEST WITH EXERCISE CONVERTED TO LEXISCAN Performing facility: [facility], [address] [place] [address], [address] [place], [place] [id number] [facility] Provider: Brooks Castro MD, FACC PCP: Dr. Ellis Tomlin Supervising provider: Haley Osullivan MD, FACC INDICATION: Dyspnea Chest tightness HISTORY: Gender: F; Age: 77 y/o ; Height: 0 cm; Weight: 0 kg. Chest Pain; High Cholesterol; SOB; Denies smoking. COMPARISON: No comparison. ACCESSION NUMBER(S): [id number]; [id number]; [id number] ORDERING CLINICIAN: BROOKS CASTRO TECHNIQUE: ONE DAY protocol. Stress injection: Date: 03-01-23, 35.6 mCi of Myoview IV at 20 seconds after rapid injection of Lexiscan. Rest injection: Date: 03-01-23, 11.1 mCi of Myoview IV at rest. The patient had a rapid injection of 0.4mg of Lexiscan IV over 10 seconds. Imaging was performed by gated tomographic technique. STRESS TEST DATA: Resting heart rate was 63 BPM. Resting blood pressure was 126/88 mmHg. The patient exercised using a Jasmeet exercise protocol. 4:00 minutes exercised. 89% of MPHR achieved for age. 5.80 METS achieved. Maximum heart rate was 129 BPM. Maximum blood pressure was 144/84 mmHg. DTS N/A. TREADMILL TEST TERMINATED DUE TO: Exercise. Test converted to Lexiscan. TEST TERMINATED DUE TO: Protocol completed. FINDINGS: STRESS TEST RESULTS: Resting electrocardiogram revealed normal sinus rhythm with sinus arrhythmia. The patient had no significant ECG changes with maximal stress. The patient did not have chest pains/symptoms during the procedure. There was a normal recovery phase. There were no significant dysrhythmias. Patient did not achieve 85% MPHR so test was immediately converted to Lexiscan. LEXISCAN INFUSION: The patient had a rapid injection of 0.4 mg of Lexiscan IV over 10 seconds. Resting electrocardiogram revealed normal sinus rhythm. The patient had no significant ECG changes with maximal stress. The patient did not have chest pains/symptoms during the procedure. There was a normal recovery phase. There were no significant dysrhythmias. IMAGING RESULTS: Image quality was good. Rest and stress tomographic images were reviewed and revealed normal perfusion without evidence of ischemia, myocardial infarction, or left ventricular dilatation with stress. Overall left ventricular systolic function appeared to be normal without regional wall motion abnormalities. LV ejection fraction was 51 %. TID is 0.91 and is normal. There was no evidence of attenuation artifact. IMPRESSION: Normal combined limited exercise and Lexiscan Myoview cardiac perfusion imaging stress test. No evidence of ischemia or myocardial infarction by perfusion imaging. Normal left ventricular systolic function, ejection fraction 51 %. No exercise provoked significant ischemic ECG changes or chest pain symptoms. No previous studies are available for comparison. Electronically signed by: HALEY OSULLIVAN MD Normal [facility] No Panel Informationon 03-01 Normal -[facility] 250 DO Work Phone: LIPID PROFILEon 02-27-2023 CHOL-HDL RATIO NORM SEE BELOW Normal [facility] Comment on above: Result Comment: 3.3 - 4.4 LOW RISK 4.4 - 7.1 AVERAGE RISK 7.1 - 11.0 MODERATE RISK >11.0 HIGH RISK Performed By: #### L IPID #### [facility] [address] [place], [place] [address] Dr. Krystle Clement Cholesterol [Mass/Vol] 211 mg/dL Critically high <=200 [facility] Comment on above: Performed By: #### L IPID #### [facility] [address] [place], [place] [address] Dr. Krystle Clement Cholesterol in HDL [Mass/Vol] 52 mg/dL Normal 40-60 [facility] Comment on above: Performed By: #### L IPID #### [facility] [address] [place] [address] [address] Krystle Clement Cholesterol in LDL [Mass/Vol] 143.0 mg/dL Normal [facility] Comment on above: Performed By: #### L IPID #### [facility] [address] [place] [address] [address] Krystle Clement Cholesterol.total/ Cholesterol in HDL [Mass ratio] 4.1 {ratio} Normal [facility] Comment on above: Performed By: #### L IPID #### [facility] [address] [place] [address] [address] Krystle Clement HDL NORMAL > or = 60 mg/dl - LO W CARDIOVASCULAR RISK <40 mg/dl - HIGH CARDIOVASCULAR RISK Normal [facility] Comment on above: Performed By: #### L IPID #### [facility] [address] [place] [address] Dr. Krystle Clement LDL CALC NORMAL SEE BELOW Normal [facility] Comment on above: Result Comment: <100 mg/dl OPTIMAL 100 - 129 mg/dl NEAR OR ABOVE OPTIMAL 130 - 159 mg/dl BORDERLINE HIGH 160 - 189 mg/dl HIGH >190 mg/dl VERY HIGH Performed By: #### L IPID #### [facility] [address] [place] [address] [address] Krystle Clement Triglyceride [Mass/Vol] 80 mg/dL Normal <=150 [facility] Comment on above: Performed By: #### L IPID #### [facility] [address] [place] [address] Dr. Krystle Clement VLDL CALC 16.0 mg/dL Normal [facility] Comment on above: Performed By: #### L IPID #### [facility] [address] [place] [address] [address] Krystle Clement Office Visit (Cardiology)on 02-13-2023 Follow-up visit Diagnoses/Problems Assessed Patient new to provider Hyperlipidemia (272.4) (E78.5) Dyspnea (786.09) (R06.00) Stage 3a chronic kidney disease (585.3) (N18.31) Never a smoker Class 1 obesity with body mass index (BMI) of 30.0 to 30.9 in adult (278.00,V85.30) (E66.9,Z68.30) Personal history of COVID-19 (V12.09) (Z86.16) Chest tightness (786.59) (R07.89) Orders Chest tightness, Dyspnea Start: Nitroglycerin 0.4 MG Sublingual Tablet Sublingual; PLACE 1 TABLET UNDER THE TONGUE EVERY 5 MINUTES FOR UP TO 3 DOSES NEEDED FOR CHEST PAIN.CALL 911 IF PAIN PERSISTS NM Cardiac Stress/Rest Nuclear Med Order; Status:Hold For - Scheduling,Retrospecti ve Authorization; Requested for:[id number]; Radiologist to Determine Optimal Study : Y What are the patient's signs and symptoms? : dyspnea chest tightness Chest tightness, Dyspnea, Hyperlipidemia Lipid Panel; Status:Active - Retrospective Authorization; Requested for:[id number]; Class 1 obesity with body mass index (BMI) of 30.0 to 30.9 in adult Healthy Weight Tips; Status:Complete - Retrospective Authorization; Done: [id number] Some eating tips that can help you lose weight.; Status:Complete - Retrospective Authorization; Done: [id number] Dyspnea IO EKG Electrocardiogram- 12 Lead; Status:Complete; Done: [id number] SocHx: Never a smoker Tobacco Use Screening; Status:Complete; Done: [id number] Tobacco Use Screening; Status:Complete; Done: [id number] Patient Instructions Please bring all medicines, vitamins, and herbal supplements with you when you come to the office. Prescriptions will not be filled unless you are compliant with your follow up appointments or have a follow up appointment scheduled as per instruction of your physician. Refills should be requested at the time of your visit. Follow up after testing completed Chief Complaint PILO GREGORY is being seen for a consultation for. History of Present Illness 77-year-old female accompanied by daughter to the office, is being seen in cardiology consultation at the request of Dr. Billy regarding shortness of breath and lower extremity edema. No history of hypertension or diabetes, lipid status is not available. I have reviewed recent office notes by Dr. Tomlin. Patient gives history of COVID pneumonia about 2 years ago, required hospitalization for 2 days, and symptoms were bad for 1-1/2 to 2 weeks. She has since then had fatigue, and decreased exercise tolerance, but symptoms have been persisting for over 2 years now, and she is also noticing some lower extremity edema albeit mild, and decided to seek additional testing. Referral was made to pulmonology, patient tells me that she had pulmonary function testing, she was given an inhaler, which helped at times, but not consistently, and that the hydrometeorological technician felt that her shortness of breath is not of a primary pulmonary issue. She denies orthopnea or PND. Further review of systems is positive for the fact that she gets chest tightness prior to shortness of breath. She is a quite active female, who has a form, and she gerry today, she does a lot of chores around the house, she mows her yard, continues to do these activities but with some difficulty. At times she has audible wheezing. Her daughter says that when patient is short of breath she looks like she is having an asthma attack. Medications were reviewed, there are no known drug allergies, family history is noncontributory given her age. Her EKG today shows normal sinus rhythm at 63 bpm with T wave abnormality in leads III and aVF which was not seen on a previous EKG from December 2022. Reviewed echocardiogram results and laboratory data. On January 04, 2023 her sodium was 147 potassium 4.3 GFR 48 creatinine 1.1. Hemoglobin and hematocrit were 15 and 44 respectively platelets 232 white blood cell count 6.1. NT proBNP level was 582, with the lab reference being less than thousand 800. Blood pressure today is 130s over 70. Also reviewed echocardiogram that was done on 01/16/2023 at [facility]. Assessment: 1. 77-year-old with exertional shortness of breath and a decrease in functional capacity-I would say she is functional class II right now, but her baseline activity level was excellent for her age, still it is above average. 2. Chronic kidney disease stage IIIa GFR 40 04 January 2023 3. Personal history of COVID with pneumonia 2020 4. Active elizondo 5. Echocardiogram December 2022-LVEF 65% mild aortic regurgitation unable to assess right-sided pressures because of lack of measurable tricuspid regurgitation, no pericardial effusion. LV end-systolic dimension 3 cm left atrial volume index however was reported to be 66 which is elevated. Left atrial diameter was reported to be 3.6 cm. 6. EKG abnormalities, new compared to a previous EKG from December 2022. 7. History of lower extremity edema although I did not appreciate any today 8. Abnormalities on CT of the chest, small nodules, possibly consistent with long hist (more content not included)... Normal [facility] Tobacco Screening.on 023 Adult depression screening assessment No [facility] 250 DO Work Phone: Fall risk assessment a) No falls within the last year [facility] 250 DO Work Phone: Tobacco use status [facility] b) No [facility] 250 DO Work Phone: ECHOCARDIO M/2D COMPLETEon 0 01-16-2023 ECHOCARDIO M/2D COMPLETE Patient: PILO GREGORY Exam Date: 01/16/2023 : 1945 Gender:F Ordering : DR KATERINA TOMLIN M.D. Admission #: [id number] Family : Order #: [id number] CLICK HERE TO VIEW EXAM ECHOCARDIOGRAM REPORT PROCEDURE: CARDIO PULMONARY ECHOCARDIO M/2D COMP INDICATIONS: Leg edema COMPARISON: None. DESCRIPTION: COMPLETE ECHOCARDIOGRAM Real-time transthoracic echocardiography with 2D, M-mode, spectral and color flow Doppler performed. QUALITY: Technical quality was good. LEFT VENTRICLE: Normal chamber size. Thickened septal wall. Normal systolic function. LV EF: Normal left ventricular ejection fraction, (>55%). DIASTOLIC: Diastolic function is indeterminate. ATRIAL SEPTUM: Visually appears intact. LEFT ATRIUM: Mild dilatation. RIGHT ATRIUM: Normal chamber size. RIGHT VENTRICLE: Normal chamber size. Normal right ventricular systolic function. TRICUSPID VALVE: Normal mobility and thickness. No stenosis with trivial regurgitation. Unable to assess right-sided pressures due to lack of measurable tricuspid regurgitation. MITRAL VALVE: Normal mobility and thickness. No evidence of mitral valve stenosis. There is no mitral annular calcification. Trivial mitral regurgitation. AORTIC VALVE: Normal trileaflet appearance. No visible sclerosis. Normal leaflet mobility. No evidence of aortic valve stenosis. Mild aortic regurgitation. AORTIC ROOT: Normal diameter and appearance. PULMONIC VALVE: Normal thickness and mobility. No stenosis. Trivial regurgitation. PERICARDIUM: No evidence of pericardial effusion. IVC: Collapses with inspirations. PLEURA: CONCLUSION: 1. Normal ventricular systolic function. LVEF is 65%. 2. Mild aortic valve regurgitation. 3. Unable to assess right-sided pressures due to lack of measurable tricuspid regurgitation. 4. No pericardial effusion. Adult Echocardiography Procedure Report Left Ventricle LVEDD (3.7 - 5.6 cm): 4.70 cm LVESD (2.2 - 4.0 cm): 3.08 cm LVIVS thickness (0.6 - 1.2 cm): 1.05 cm LVPW thickness (0.5 - 1.0 cm): 0.94 cm e': 0.06 m/s E - e': 9.69 LVOT Max Gradient: 2.20 mm[Hg] Peak Velocity (LVOT): 0.74 m/s Mean Velocity (LVOT): 0.51 m/s LVOT Diameter 2.10 cm Left Ventricular Ejection Fraction: 65 % Left Atrium LA Volume Index (2D A2C): 65.55 ml, 65.55 ml Left Atrium Systolic Dimension: 3.62 cm Mitral Valve MV E to A Ratio: 0.76 Mitral Valve A-Wave Peak Velocity: 0.70 m/s Mitral Valve E-Wave Peak Velocity: 0.53 m/s Right Ventricle Aorta AO Root Diam: 2.90 cm Aortic Valve AoV Area (Peak Jarred): 2.12 cm2, 2.12 cm2 Peak Velocity(Antegrade Flow): 1.22 m/s Peak Gradient(Antegrade Flow): 5.94 mm[Hg] Tricuspid Valve Peak Velocity: 0.47 m/s Pulmonic Valve Peak Velocity: 0.67 m/s, 0.65 m/s Peak Gradient: 1.81 mm[Hg], 1.71 mm[Hg] Right Atrium Right Atrium Systolic Pressure: 35.37 ml, 35.37 ml Dictated by: Doug Stern M.D. on 01/16/2023 at 14:49 Approved by: Doug Stern M.D. on 01/16/2023 at 14:53 [facility] B-Type Natriuretic Peptideon 01-04-2023 B-Type Natriuretic Peptide see note [facility] Other B-Type Natriuretic Peptide 582.0 pg/ml <=1,800.0 pg/ml [facility] Other BNPon 01-04-2023 Natriuretic peptide B (Bld) [Mass/Vol] 582.0 pg/mL Normal <=1,800.0 [facility] Comment on above: Performed By: #### B VMWARE ENGINEER, BMP #### [facility] [address] [place] [address] Dr. Krystle Clement CBC AUTO DIFFon 01-04-2023 BASO # 0.0 103/ul Normal 0.0-0.1 [facility] Comment on above: Performed By: #### C BC #### [facility] [address] [place] [address] Dr. Krystle Clement Basophils/100 WBC (Bld) 0.7 % Normal 0.2-2.0 [facility] Comment on above: Performed By: #### C BC #### [facility] [address] [place] [address] Dr. Krystle Clement EO # 0.4 103/ul Normal 0.0-0.7 [facility] Comment on above: Performed By: #### C BC #### [facility] [address] [place] [address] Dr. Krystle Clement Eosinophils/100 WBC (Bld) 5.7 % Normal 0.9-7.0 [facility] Comment on above: Performed By: #### C BC #### [facility] [address] [place] [address] Dr. Krystle Clement Erythrocyte distribution width (RBC) [Ratio] 12.9 % Normal 11.0-15.0 [facility] Comment on above: Performed By: #### C BC #### [facility] [address] [place] [address] Dr. Krystle Clement Hematocrit (Bld) [Volume fraction] 44.3 % Normal 36.0-48.0 [facility] Comment on above: Performed By: #### C BC #### [facility] [address] [place] [address] Dr. Krystle Clement Hemoglobin (Bld) [Mass/Vol] 15.0 g/dL Normal 12.0-16.0 [facility] Comment on above: Performed By: #### C BC #### [facility] [address] [place] [address] Dr. Krystle Clement IG # 0.02 10e3/ul Normal 0.00-0.03 [facility] Comment on above: Performed By: #### C BC #### [facility] [address] [place] [address] Dr. Krystle Clement IG % 0.3 % Normal 0.0-0.5 [facility] Comment on above: Performed By: #### C BC #### [facility] [address] [place] [address] Dr. Krystle Clement LYMPH # 1.1 103/ul Critically low 1.2-3.8 [facility] Comment on above: Performed By: #### C BC #### [facility] [address] [place] [address] Dr. Krystle Clement Lymphocytes/100 WBC (Bld) 18.1 % Critically low 20.5-60.0 [facility] Comment on above: Performed By: #### C BC #### [facility] [address] [place] [address] Dr. Krystle Clement MANUAL DIFF REQ NO Normal [facility] Comment on above: Performed By: #### C BC #### [facility] [address] [place] [address] Dr. Krystle Clement MCH (RBC) [Entitic mass] 30.9 pg Normal 26.7-34.0 [facility] Comment on above: Performed By: #### C BC #### [facility] [address] [place] [address] Dr. Krystle Clement MCHC (RBC) [Mass/Vol] 33.9 g/dL Normal 29.9-35.2 [facility] Comment on above: Performed By: #### C BC #### [facility] [address] [place] [address] Dr. Krystle Clement MCV (RBC) [Entitic vol] 91.3 fL Normal 81.0-99.0 [facility] Comment on above: Performed By: #### C BC #### [facility] [address] [place] [address] Dr. Krystle Clement MONO # 0.7 103/ul Normal 0.3-0.8 [facility] Comment on above: Performed By: #### C BC #### [facility] [address] [place] [address] Dr. Krystle Clement Monocytes/100 WBC (Bld) 11.7 % Normal 1.7-12.0 [facility] Comment on above: Performed By: #### C BC #### [facility] [address] [place] [address] Dr. Krystle Clement NEUT # 3.9 103/ul Normal 1.4-6.5 [facility] Comment on above: Performed By: #### C BC #### [facility] [address] [place] [address] Dr. Krystle Clement Neutrophils/100 WBC (Bld) 63.5 % Normal 43.0-75.0 [facility] Comment on above: Performed By: #### C BC #### [facility] [address] [place] [address] Dr. Krystle Clement Platelet mean volume (Bld) [Entitic vol] 8.8 fL Critically low 9.5-13.5 [facility] Comment on above: Performed By: #### C BC #### [facility] [address] [place] [address] Dr. Krystle Clement PLT 232 103/ul Normal 150-450 [facility] Comment on above: Performed By: #### C BC #### [facility] [address] [place] [address] Dr. Krystle Clement RBC 4.85 106/ul Normal 4.20-5.40 [facility] Comment on above: Performed By: #### C BC #### [facility] [address] [place] [address] Dr. Krystle Clement WBC 6.1 103/ul Normal 4.0-11.0 [facility] Comment on above: Performed By: #### C BC #### [facility] [address] [place] [address] Dr. Krystle Clement PROF CHEM 8 (BAS METB)on Anion gap [Moles/Vol] 11.6 mmol/L [facility] Comment on above: Performed By: #### B VMWARE ENGINEER, BMP #### [facility] [address] [place] [address] Dr. Krystle Clement Calcium [Mass/Vol] 9.5 mg/dL Normal 8.5-10.1 [facility] Comment on above: Performed By: #### B VMWARE ENGINEER, BMP #### [facility] [address] [address] [address] Krystle Clement Chloride [Moles/Vol] 110 mmol/L Critically high 98-107 [facility] Comment on above: Performed By: #### B VMWARE ENGINEER, BMP #### [facility] [address] [place] [address] Dr. Krystle Clement CO2 [Moles/Vol] 29.7 mmol/L Normal 21.0-32.0 [facility] Comment on above: Performed By: #### B VMWARE ENGINEER, BMP #### [facility] [address] [place] [address] Dr. Krystle Clement Creatinine [Mass/Vol] 1.11 mg/dL Critically high 0.55-1.02 [facility] Comment on above: Performed By: #### B VMWARE ENGINEER, BMP #### [facility] [address] [place] [address] Dr. Krystle Clement EGFR-AF DJIBOUTIAN 58 mL/min/1.73m2 Critically low >=60 [facility] Comment on above: Performed By: #### B VMWARE ENGINEER, BMP #### [facility] [address] [place] [address] Dr. Krystle Clement EGFR-NON AF DJIBOUTIAN 48 mL/min/1.73m2 Critically low >=60 [facility] Comment on above: Performed By: #### B VMWARE ENGINEER, BMP #### [facility] [address] [place] [address] Dr. Krystle Clement Glucose [Mass/Vol] 77 mg/dL Normal 74-106 [facility] Comment on above: Performed By: #### B VMWARE ENGINEER, BMP #### [facility] [address] [place], [place] [id number] Dr. Krystle Clement Potassium [Moles/Vol] 4.3 mmol/L Normal 3.5-5.1 [facility] Comment on above: Performed By: #### B VMWARE ENGINEER, BMP #### [facility] [address] [place] [address] Dr. Krystle Clement Sodium [Moles/Vol] 147 mmol/L Critically high 136-145 [facility] Comment on above: Performed By: #### B VMWARE ENGINEER, BMP #### [facility] [address] [place] [address] Dr. Krystle Clement Urea nitrogen [Mass/Vol] 16.0 mg/dL Normal 7.0-18.0 [facility] Comment on above: Performed By: #### B VMWARE ENGINEER, BMP #### [facility] [address] [place] [address] Dr. Krystle Clement Urea nitrogen/Creatinin e [Mass ratio] 14.4 mg/mg [facility] Comment on above: Performed By: #### B VMWARE ENGINEER, BMP #### [facility] [address] [place] [address] CHEST WO CONon 11-03-2022 CT CHEST WO CON EXAMINATION: CT CHES T WO CON HISTORY: Lung field abnormal , shortness of breath COMPARISON: 03/10/2022 TECHNIQUE: Multi-planar CT images were created with IV contrast. Axial, Coronal, and Sagittal images. Dose reduction techniques were achieved by using automated exposure control and/or adjustment of mA and/or kV according to patient size and/or use of iterative reconstruction technique. FINDINGS: LUNGS: Calcified tracheobronchial tree. Innumerable solid calcified and noncalcified pulmonary nodules are noted throughout the lungs these appear grossly stable from the prior exam. Significantly limiting diagnostic sensitivity. PLEURA: No mass, effusion, or pneumothorax. VASCULATURE: No abnormality. BREANNE: Calcified bilateral hilar lymph nodes MEDIASTINUM: Calcified and noncalcified pretracheal AP window prevascular and subcarinal lymphadenopathy, grossly stable CARDIAC: No enlargement, pericardial thickening, or significant calcification. AORTA: No aneurysm or dissection. CHEST WALL: No mass or axillary adenopathy. BONES: No bone lesion or fracture. LIMITED ABDOMEN: Extensive cholelithiasis without CT evidence of acute cholecystitis in the visualized gallbladder OTHER: Negative. IMPRESSION: Innumerable calcified and noncalcified pulmonary nodules, mediastinal and hilar lymphadenopathy. The differential diagnosis is unchanged. Given the stability over time I favor chronic granulomatous process such as sarcoidosis. The sheer number of nodules markedly limits diagnostic sensitivity for detection of a malignant lesion. Electronically authenticated by: BARBARA CHO Date: 2022-11-03 15:55 [facility] MG MAMM SCREEN 3D ITALIA CADon 11-03-2022 MG MAMM SCREEN 3D ITALIA CAD Patient: PILO GREGORY Exam Date: 11/03/2022 : 1945 Gender:F Ordering : DR KATERINA TOMLIN M.D. Admission #: [id number] Family : Order #: [id number] CLICK HERE TO VIEW EXAM RADIOLOGY REPORT PROCEDURE: MAMMOGRAM SCREENING 3D BILATERAL CAD COMPARISON: MG MAMM SCREEN ITALIA W CAD, 12/02/2019. MG MAMM SCREEN 3D ITALIA CAD, 10/04/2021. INDICATIONS: Screening mammography Calculator Name NCI Breast Cancer Risk Assessment Tool 5 Year Breast Cancer Risk 3.70% Lifetime Breast Cancer Risk 7.90% Personal Breast Cancer No Personal Ovarian Cancer No Treatments None Family Cancers Mother with breast cancer at age 58. LOCATION: [facility] BREAST COMPOSITION: Scattered areas fibroglandular density. FINDINGS: DIAGNOSTIC CATEGORY 1--NEGATIVE. NO CHANGE FROM COMPARISON ASSESSMENT. Scattered benign-appearing nodules are present. Scattered benign-appearing calcifications are present. Scattered benign-appearing lymph nodes are present. RIGHT BREAST: No significant suspicious finding. LEFT BREAST: No significant suspicious finding. RECOMMENDATIONS: ROUTINE MAMMOGRAM AND CLINICAL EVALUATION IN 12 MONTHS. PLEASE NOTE: A NORMAL MAMMOGRAM DOES NOT EXCLUDE THE POSSIBILITY OF BREAST CANCER. A CLINICALLY SUSPICIOUS PALPABLE LUMP SHOULD BE BIOPSIED. Dictated by: Barbara Cho MD on 11/03/2022 at 15:49 Approved by: Barbara Cho MD on 11/03/2022 at 15:57 Normal [facility] CT CHEST WO CONon 03-10-2022 CT CHEST WO CON EXAMINATION: CT CHES T WO CON HISTORY: Lung field abnormal COMPARISON: CT chest 11/24/2021 TECHNIQUE: Axial, Coronal, and Sagittal images were created without the administration of IV contrast material. Dose reduction techniques were achieved by using automated exposure control and/or adjustment of mA and/or kV according to patient size and/or use of iterative reconstruction technique. FINDINGS: LUNGS: Grossly stable appearance of the innumerable rounded angiographic shaped small nodules scattered throughout the lungs, with a few contain central calcifications; sizes ranged between 2 and 12 mm. Scattered areas of mild groundglass opacities suggest air trapping or atelectasis. PLEURA: No mass, effusion, or pneumothorax. VASCULATURE: No abnormality. BREANNE: Numerous calcified lymph nodes bilaterally. MEDIASTINUM: Numerous small and slightly enlarged lymph nodes with many containing calcifications. CARDIAC: Small moderate pericardial fluid. No significant cardiac enlargement. AORTA: No aneurysm or dissection. CHEST WALL: No mass or axillary adenopathy. BONES: No bone lesion or fracture. LIMITED ABDOMEN: Multiple stones within noninflamed gallbladder. Limited images of the upper abdomen. OTHER: Negative. IMPRESSION: 1. Grossly stable appearance of the innumerable nodules scattered throughout the lungs along with mediastinal and bilateral hilar lymphadenopathy. Findings are nonspecific but favoring extensive granulomatous disease versus silicosis or sarcoidosis. Infectious etiology, neoplasm, hypersensitivity pneumonitis, etc are felt less likely. Consider follow-up imaging in 6 months and 12 months to document continued stability. 2. Small pericardial effusion. 3. Cholelithiasis. Electronically authenticated by: YFN SELF Date: 2022-03-10 10:46 Normal [facility] Superficial Wound Cultureon 11-23-2018 Superficial Wound Culture POST OP INFECTION; ORGANISM: Staphylococcus epidermidis (O:STAEPI) Quantity of Growth Moderate Growth Aerobic VANIA Charge (Pos New) --- SUSCEPTIBILITY -- ORGANISM: O:STAEPI ANTIBIOTIC INTERPRETATION VANIA Amoxacillin/K Clavulanate R <4/2 Ampicillin R <2 Ampicillin/Sulbactam R <8/4 Cefazolin R <8 Ceftriaxone R <8 Clindamycin R >4 Daptomycin S <0.5 Erythromycin R >4 Levofloxacin S <2 Linezolid S <1 Meropenem R <4 Oxacillin R >2 Penicillin R 8 Rifampin S <1 Tetracycline S <4 Trimethoprim/Sulfameth oxazole S 22/38 Vancomycin S 1 S = SUSCEPTIBLE I = INTERMEDIATE R = RESISTANT BLANK = DATA NOT AVAILABLE, OR DRUG NOT ADVISABLE OR TESTED R* = RESISTANCE DUE TO EXTENDED SPECTRUM BETA-LACTAMASES ESBL = EXTENDED SPECTRUM BETA-LACTAMASE TFG = THYMIDINE-DEPENDENT STRAIN SHO = BETA-LACTAMASE POSITIVE IB = INDUCIBLE BETA-LACTAMASE. APPEARS IN PLACE OF 'S' WITH SPECIES KNOWN TO POSSESS INDUCIBLE BETA-LACTAMASES. POTENTIALLY THEY MAY BECOME RESISTANT TO ALL B-LACTAM DRUGS. PERFORMED BY: [facility] [address] [id number] PATHOLOGIST DEPUTY JAILER CRISTHIAN REYEZ M.D. Normal [facility] Comment on above: Performed By: #### C USUP #### [address] [id number] [facility] Vital Signs Date Time Vital Sign Value Performing Clinician Facility 04-07-2023 13:30-0400 Body height 162.56 cm Katerina Tomlin Other [employer] [facility] Other 04-07-2023 13:30-0400 Body mass index (BMI) [Ratio] 29.69 kg/m2 Katerina Tomlin Other [facility] Other 04-07-2023 13:30-0400 Body weight 78.47 kg Katerina Tomlin Other [facility] Other 04-07-2023 13:30-0400 Diastolic blood pressure 76 mm[Hg] Katerina Tomlin Other [facility] Other 04-07-2023 13:30-0400 Systolic blood pressure 161 mm[Hg] Katerina Tomlin Other [facility] Other 03-20-2023 16:02-0400 Diastolic blood pressure 82 mm[Hg] Katerina Tomlin Work Phone: [facility] DO Work Phone: 03-20-2023 16:02-0400 Diastolic blood pressure 80 mm[Hg] Katerina Tomlin Work Phone: [facility] 250 DO Work Phone: 03-20-2023 16:02-0400 Systolic blood pressure 138 mm[Hg] Katerina Tomlin Work Phone: [facility] 250 DO Work Phone: 03-20-2023 15:32-0400 Body height 160.02 cm Katerina Tomlin Work Phone: [facility] 250 DO Work Phone: 03-20-2023 15:32-0400 Body mass index (BMI) [Ratio] 30.47 kg/m2 Katerina Tomlin Work Phone: [facility] 250 DO Work Phone: 03-20-2023 15:32-0400 Body surface area Derived from formula 1.81 m2 Katerina Tomlin Work Phone: [facility] 250 DO Work Phone: 03-20-2023 15:32-0400 Body weight 78.02 kg Katerina Tomlin Work Phone: [facility] 250 DO Work Phone: 03-20-2023 15:32-0400 Diastolic blood pressure 86 mm[Hg] Katerina Tomlin Work Phone: [facility] 250 DO Work Phone: 03-20-2023 15:32-0400 Heart rate 74 /min Katerina Tomlin Work Phone: [facility] 250 DO Work Phone: 03-20-2023 15:32-0400 Systolic blood pressure 144 mm[Hg] Katerina Tomlin Work Phone: [facility] 250 DO Work Phone: 02-27-2023 14:47-0400 143 1 Katerina Tomlin Work Phone: [facility] 250 DO Work Phone: Comment on above: [facility] 02-13-2023 09:36-0400 Diastolic blood pressure 70 mm[Hg] Katerina Tomlin Work Phone: [facility] 250 DO Work Phone: 02-13-2023 09:36-0400 Systolic blood pressure 138 mm[Hg] Katerina Tomlin Work Phone: [facility] 250 DO Work Phone: 02-13-2023 09:35-0400 Body height 160.02 cm Katerina Tomlin Work Phone: [facility] 250 DO Work Phone: 02-13-2023 09:35-0400 Body mass index (BMI) [Ratio] 30.65 kg/m2 Katerina Tomlin Work Phone: [facility] 250 DO Work Phone: 02-13-2023 09:35-0400 Body surface area Derived from formula 1.82 m2 Katerina Tomlin Work Phone: [facility] 250 DO Work Phone: 02-13-2023 09:35-0400 Body weight 78.47 kg Katerina Tomlin Work Phone: [facility] 250 DO Work Phone: 02-13-2023 09:35-0400 Diastolic blood pressure 72 mm[Hg] Katerina Tomlin Work Phone: [facility] 250 DO Work Phone: 02-13-2023 09:35-0400 Heart rate 63 /min Katerina Tomlin Work Phone: [facility] 250 DO Work Phone: 02-13-2023 09:35-0400 Systolic blood pressure 130 mm[Hg] Katerina Tomlin [facility] Phone: [facility] [employer] 250 DO Work Phone: 01-02-2023 09:30-0500 Body height 162.56 cm Katerina Tomlin Other [facility] Other 01-02-2023 09:30-0500 Body mass index (BMI) [Ratio] 29.52 kg/m2 Katerina Tomlin Other [facility] Other 01-02-2023 09:30-0500 Body weight 78.02 kg Katerina Tomlin Other [facility] Other 01-02-2023 09:30-0500 Diastolic blood pressure 70 mm[Hg] Katerina Tomlin Other [facility] Other 01-02-2023 09:30-0500 SaO2% (BldA) [Mass fraction] 98 % Katerina Tomlin Other [facility] Other 01-02-2023 09:30-0500 Systolic blood pressure 142 mm[Hg] Katerina Tomlin Other [facility] Other Encounters Encounter Date Encounter Type Care Provider Facility Start: 11-28-2023 End: 11-28-2023 ambulatory CHOCO A PETITTI Not Available Start: 10-03-2023 End: 10-03-2023 ambulatory CHOCO A PETITTI Not Available Start: 04-07-2023 End: 04-07-2023 ambulatory Katerina Tomlin Other [facility] Other Start: 04-07-2023 Patient encounter procedure Katerina Tomlin [facility] Start: 03-28-2023 Chart Update Katerina Tomlin Work Phone: [facility] 250 DO Work Phone: Start: 03-24-2023 Chart Update Katerina Tomlin Work Phone: [facility] DO Work Phone: Start: 03-24-2023 ambulatory Brooks Javieremmie Facility: [id number] Start: 03-02-2023 Chart Update Katerina Tomlin Work Phone: [facility] 250 DO Work Phone: Start: 03-01-2023 ambulatory Brooks Janna0emmie Facility: [id number] Start: 02-27-2023 End: 02-28-2023 ambulatory [facility] Facility: Start: 02-14-2023 End: 02-14-2023 ambulatory Katerina Tomlin Other [facility] Other Start: 02-14-2023 Telephone encounter Katerina Tomlin [facility] Start: 02-13-2023 Office consultation new/estab patient 60 min Katerina Tomlin Work Phone: [facility] 250 DO Work Phone: Start: 02-13-2023 ambulatory MD BROOKS CASTRO Facilit y: Start: 01-18-[address] Katerina Tomlin Facility:[facility] Start: 01-17-2023 End: 01-17-2023 ambulatory Katerina Tomlin Other [facility] Other Start: 01-17-2023 Telephone encounter Katerina Tomlin [facility] Start: 01-16-2023 End: 01-17-[address] KATERINA TOMLIN Facility: Start: 01-05-2023 End: 01-05-2023 ambulatory Katerina Tomlin Other [facility] Other Start: 01-05-2023 Telephone encounter Katerina Tomlin [facility] Start: 01-04-2023 End: 01-05-[address] KATERINA TOMLIN Facility: Start: 01-02-2023 End: 01-02-2023 ambulatory Katerina Tomlin Other [facility] Other Start: 01-02-2023 Office outpatient vi sit 15 minutes Katerina Tomlin [facility] Start: 11-03-2022 End: 11-04-2022 ambulatory DAYANNA LOBO . Facility: Start: 03-10-2022 End: 03-11-2022 ambulatory DAYANNA LOBO . Facility: Start: 11-23-2018 End: 11-23-2018 Patient encounter procedure Mello Dang Facility:[facility] Start: 10-17-2018 End: 10-17-2018 Patient encounter procedure EMILY YIN [facility] Procedures Date Procedure Procedure Detail Performing Clinician Appendectomy Katerina Tomlin Work Phone: section Katerina ochoa Work Phone: Colonoscopy Katerina Tomlin Work Phone: Tonsillectomy and adenoidectomy Katerina Tomlin Work Phone: Plan of Treatment Date Care Activity Detail Author Start: 03-20-2023 FUV, Provider: Brooks Castro, Status: Pen, Time: 3:30 PM FUV, Provider: Brooks Castro, Status: Pen, Time: 3:30 PM [facility] DO Work Phone: Start: 03-01-2023 STRESS NUC, Provider : ARACELI CHERRYI NUCLEAR 01,[id number], Status: Pen, Time: 8:00 AM STRESS NUC, Provider: ARACELI CHERRYI NUCLEAR 01,[id number], Status: Pen, Time: 8:00 AM [facility] DO Work Phone: Immunizations Immunization Date Immunization Notes Care Provider Fa cilijoaquin 10-25-2021 Pfizer-BioNTech COVI D-19 Vacc 30 MCG/0.3ML Intramuscular Suspension Katerina Tomlin Work Phone: [facility] 250 DO Work Phone: 03-25-2021 Pfizer-BioNTech COVI D-19 Vacc 30 MCG/0.3ML Intramuscular Suspension Katerina Tomlin Work Phone: [facility] 250 DO Work Phone: 03-01-2021 Pfizer-BioNTAssistera COVI D-19 Vacc 30 MCG/0.3ML Intramuscular Suspension Katerina Tomlin Work Phone: [facility] 250 DO Work Phone: 04-09-2015 pneumococcal conjuga te vaccine, 13 valent Katerina Tomlin Work Phone: [facility] 250 DO Work Phone: 08-31-2008 pneumococcal polysaccharide vaccine, 23 valent Katerina Tomlin Work Phone: [facility] 250 DO Work Phone: Payers Date Payer Category Payer Self-pay 1958 Medicare [id number] 1958 Unknown [id number] 1945 Unknown [id number] 2.16. [id number] 1945 Unknown [id number] 2.16.84 [id number] 1945 Unknown [id number] 2.16.84 [id number] 1945 Unknown [id number] 2.16.84 [id number] 1945 Unknown [id number] 2.16.84 [id number] 1945 Unknown [id number] 2.16.84 0.1.153970.3.579.2.593 1945 Unknown [id number] 2.16.84 0.1.387133.3.579.2.593 1945 Unknown [id number] 2.16.84 0.1.594924.3.579.2.593 1945 Unknown [id number] 2.16.8 [id number] 1945 Unknown [id number] 2.16.8 [id number] 1945 Unknown [id number] 2.16.84 [id number] 1945 Unknown [id number] 2.16.840 .[id number] Unknown [id number] 2.16.840 .[id number] Unknown Unknown [id number] Social History Date Type Detail Facility Unknown if ever smoked [facility] Other Sex Assigned At Sex Assigned At Bir th [facility] Other Alcohol ingestion [facility] [facility] DO Work Phone: Comment on above: couple weekly whiske y; coffee daily; Evaluation note 04-07-2023 Note Date & Type Note Facility 04-07-2023 Evaluation note Encounter Date Diagnosis Assessment Notes Mar, Inflamed seborrheic keratosis (ICD-10 - L82.0) cryotherapy on lesion [facility] Other Evaluation note 04-07-2023 Note Date & Type Note Facility 04-07-2023 Evaluation note Encounter Date Diagnosis Assessment Notes Mar, Inflamed seborrheic keratosis (ICD-10 - L82.0) cryotherapy on lesion. There is no tick bite. [facility] Other Evaluation note 01-17-2023 Note Date & Type Note Facility 01-17-2023 Evaluation note Encounter Date Diagnosis Assessment Notes Dec, Dyspnea, unspecified (ICD-10 - R06.00) Dec, Other abnormalities of breathing (ICD-10 - R06.89) Dec, Abnormal EKG (ICD-10 - R94.31) [facility] Other Evaluation note 01-02-2023 Note Date & Type Note Facility 01-02-2023 Evaluation note Encounter Date Diagnosis Assessment Notes Dec, Leg edema (ICD-10 - R60.0) Discussed differential including heart failure. Pt would like to get tests to have a cause for her ongoing symptoms. Dec, Dyspnea on exertion (ICD-10 - R06.09) PFT this week. Complete tests as ordered. Pt agrees. [facility] Other Chief complaint Narrative - Reported Note Date & Type Note Facility Chief complaint Narrative - Reported PILO GREGORY is being seen for a consultation for. [facility] DO Work Phone: Evaluation note Note Date & Type Note Facility Evaluation note No Information [facility] Other History general Narrative - Reported Note Date & Type Note Facility History general Narrative - Reported Type Medical History History of COVID-19 Medical History Shortness of breath Medical History Multiple pulmonary nodules Medical History Myalgia Medical History Dyspnea on exertion Medical History Abdominal pain, epigastric Medical History CALCIFIED LYMPH NODES Medical History Abnormal x-ray of lung Medical History INCREASED SERUM LIPIDS Surgical History X3 Surgical History D&C Surgical History T&A Hospitalization History SEE SURGICAL HX [facility] Other History of Present illness Narrative Note Date & Type Note Facility History of Present illness Narrative 77-year-old female accompanied by daughter to the office, is being seen in cardiology consultation at the request of Dr. Billy regarding shortness of breath and lower extremity edema.No history of hypertension or diabetes, lipid status is not available.I have reviewed recent office notes by Dr. Tomlin.Patient gives history of COVID pneumonia about 2 years ago, required hospitalization for 2 days, and symptoms were bad for 1-1/2 to 2 weeks.She has since then had fatigue, and decreased exercise tolerance, but symptoms have been persisting for over 2 years now, and she is also noticing some lower extremity edema albeit mild, and decided to seek additional testing. Referral was made to pulmonology, patient tells me that she had pulmonary function testing, she was given an inhaler, which helped at times, but not consistently, and that the hydrometeorological technician felt that her shortness of breath is not of a primary pulmonary issue.She denies orthopnea or PND. Further review of systems is positive for the fact that she gets chest tightness prior to shortness of breath. She is a quite active female, who has a form, and she gerry today, she does a lot of chores around the house, she mows her yard, continues to do these activities but with some difficulty.At times she has audible wheezing. Her daughter says that when patient is short of breath she looks like she is having an asthma attack. Medications were reviewed, there are no known drug allergies, family history is noncontributory given her age.Her EKG today shows normal sinus rhythm at 63 bpm with T wave abnormality in leads III and aVF which was not seen on a previous EKG from December 2022.Reviewed echocardiogram results and laboratory data. On January 04, 2023 her sodium was 147 potassium 4.3 GFR 48 creatinine 1.1. Hemoglobin and hematocrit were 15 and 44 respectively platelets 232 white blood cell count 6.1. NT proBNP level was 582, with the lab reference being less than thousand 800. Blood pressure today is 130s over 70.Also reviewed echocardiogram that was done on 01/16/2023 at [facility].Assessment:1. 77-year-old with exertional shortness of breath and a decrease in functional capacity-I would say she is functional class II right now, but her baseline activity level was excellent for her age, still it is above average.2. Chronic kidney disease stage IIIa GFR 40 8 December. Personal history of COVID with pneumonia 2020. 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 Echocardiogram December 2022-LVEF 65% mild aortic regurgitation unable to assess right-sided pressures because of lack of measurable tricuspid regurgitation, no pericardial effusion. LV end-systolic dimension 3 cm left atrial volume index however was reported to be 66 which is elevated. Left atrial diameter was reported to be 3.6 cm.6. EKG abnormalities, new compared to a previous EKG from December 2022.7. History of lower extremity edema although I did not appreciate any today8. Abnormalities on CT of the chest, small nodules, possibly consistent with long history of farming.Recommendations:1. Obtain lipid profile2. Received with a treadmill stress perfusion imaging study, may switch to [employer] [facility] as needed3. We talked about shortness of breath being an anginal equivalent in her age group.4. Gave her prescription for sublingual nitroglycerin, to use as needed chest tightness, discussed today pros and cons, patient understands that if symptoms escalate she needs to seek prompt medical attention.Follow-up after testingThank you for allowing us to participate in Pilo's care, please do not hesitate to call if further questions arise,Sincerely,Brooks Castro MD [facility] 250 DO Work Phone: Summary Purpose Family History No Family History Records FoundUnknown Family Member Name Dates Details Family history of congestive heart failure: Father(V17.49, Z82.49) Status:Active Family history of malignant neoplasm: Mother(V16.9, Z80.9) Status:Active Unknown Family Member Name Dates Details Family history of congestive heart failure: Father(V17.49, Z82.49) Status:Active Family history of malignant neoplasm: Mother(V16.9, Z80.9) Status:Active Unknown Family Member Name Dates Details Family history of congestive heart failure: Father(V17.49, Z82.49) Status:Active Family history of malignant neoplasm: Mother(V16.9, Z80.9) Status:Active Advance Directives No Advanced Directives Records FoundNo Advanced Directives Records FoundNo Advanced Directives Records FoundNo Advanced Directives Records FoundNo Advanced Directives Records FoundNo Advanced Directives Records FoundNo Advanced Directives Records Found Reason for Referral Reason *FU 01/25 Last OV, echo, EKG, labs - c/o dyspnea on exertion and LE edema. Diagnosis 1 Abnormal EKG (R94.31 ) Referral Organization [facility] Referring Provider First Name Katerina Referring Provider Last Name Nabor Referring Provider Specialty Family [facility] Referred Organization [facility] enter Referred Provider Brandt Ramírez Referred Address [address] ,[place], [place],[address] Referred Provider Specialty Cardiology Referral Priority Routine General Notes Bindu Thomas 12:56:01 PM >received today, attachments made, notes locked, and referral faxed Additional Source Comments INFORMATION SOURCE (unrecogn ized section and content) DATE CREATED AUTHOR 10/20/2018 [facility] DATE CREATED AUTHOR AUTHOR'S MYRIAMIZ ATGABRIELLE 12/13/2018 [facility] DATE CREATED AUTHOR AUTHOR'S ORGANIZ ATION 02/13/2023 [facility] DATE CREATED AUTHOR AUTHOR'S ORGANIZ ATION 02/14/2023 [employer] DATE CREATED AUTHOR AUTHOR'S ORGANIZ ATION 03/03/2023 [facility] DATE CREATED AUTHOR AUTHOR'S ORGANIZ ATION 04/07/2023 [facility] DATE CREATED AUTHOR AUTHOR'S ORGANIZ ATION 11/29/2023 [facility] EPIC REASON FOR VISIT (unrecogniz ed section and content) check uplabscardiac testsPFT Neededpossible tickpossible tick FOR RECORDS PERTAINING TO PATIENTS WHO ARE OR HAVE BEEN ENROLLED IN A CHEMICAL DEPENDENCY/SUBSTANCEABUSE PROGRAM, SOME INFORMATION MAY BE OMITTED. This clinical summary was aggregated from multiple sources. Caution should be exercised in using it in the provision of clinical care. This summary normalizes information from multiple sources, and as a consequence, information in this document may materially change the coding, format and clinical context of patient data. In addition, data may be omitted in some cases. CLINICAL DECISIONS SHOULD BE BASED ON THE PRIMARY CLINICAL RECORDS. [facility] [employer] provides no warranty or guarantee of the accuracy or completeness of information in this document.
--- NOTE | 2024-01-01 12:30 | ECG_ITS ---
[facility] Test Date: 2024-01-01 Pat Name: PILO GREGORY Department: Room: - Gender: Female [employer]: : 1945 Requested By: Alexandru Moncada Order Number: [id number] Reading MD: ROGER CARABALLO Measurements Intervals [place] Rate: 69 P: 61 MI: 180 QRS: 25 QRSD: 92 T: 83 QT: 389 QTc: 418 Interpretive Statements SINUS RHYTHM WITH SINUS ARRHYTHMIA NONSPECIFIC T-WAVE ABNORMALITY Compared to ECG 01/16/2023 13:13:49 No significant changes Electronically Signed On 01-01-2024 22:37:29 EST by ROGER CARABALLO
== END 2024-01-01 12:12 | disposition home or self-care (01) ==
LOC: PST 12:11
PROVIDERS: PCP Family Medicine; Visit Provider Internal Medicine
DX: Z01.810 Encounter for preprocedural cardiovascular examination (principal); R91.8 Other nonspecific abnormal finding of lung field
CPT/HCPCS: 93005

== ENCOUNTER 2024-01-22 06:09 | Day surgery (SDC) | payer MEDICARE, OTHER, SELFPAY ==
[2024-01-01 12:59] VITALS: BP 134/71; PULSE 73; RESP 20; TEMP 36.3; O2SAT 96; BMI 28.9
[2024-01-12 06:15] VITALS: BP 187/78; PULSE 69; RESP 18; TEMP 36.2; O2SAT 95
[2024-01-22] VITALS (7 sets, daily range): BP systolic 129–165; BP diastolic 76–100; PULSE 61–89; RESP 18–24; TEMP 36.8; O2SAT 92–94; BMI 28.8
--- OUTSIDE RECORDS SUMMARY | 2024-01-22 06:12 | XMS_ITS | CCD ---
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 Katerina Nina Referring Unav ailable Tomlin, Dr. Katerina Nina Primary Care Unav ailable Nabor, Dr. Katerina Nina Primary Care Unav ailable MISC, DOCTOR Admitting Unavailable NABOR, DR KATERINA Aparicio Primary Care Unavailable MISC, DOCTOR Attending Unavailable MISC, DOCTOR Consulting Unavailable NABOR, DR KATERINA Aparicio Primary Care Unavailable NABOR, DR KATERINA Aparicio Admitting Unavailable NABOR, DR KATERINA Aparicio Attending Unavailable NABOR, DR KATERINA Aparicio Consulting Unavailable NABOR, DR KATERINA Aparicio Primary Care Unavailable NABOR, DR KATERINA Aparicio Admitting Unavailable NABOR, DR KATERINA Aparicio Attending Unavailable NABOR, DR KATERINA Aparicio Consulting Unavailable SAMSA ., DAYANNA Admitting Unavailable SAMSA ., DAYANNA Attending Unavailable SAM ., DAYANNA Consulting Unavailable NABOR, DR KATERINA Aparicio Primary Care Unavailable NABOR, DR KATERINA Aparicio Admitting Unavailable NABOR, DR KATERINA Aparicio Attending Unavailable DR BARBARA CHO V Consulting Unavailable DR KATERINA TOMLIN Primary Care Unavailable NABOR, DR KATERINA Aparicio [...] DAYANNA Consulting Unavailable Brooks Marquez Attending Unavailable Nabor, Dr. Katerina Nina Primary Care Unav ailable Moha0n, Brooks Attending Unavailable Dr. Katerina Tomlin Primary Care Unav ailable CHOCO DUVAL Attending Unavailable PETCHOCO TUCKER Attending Unavailable Allergies Allergy Classification Reported Allergen(s) Allergy Type Date of Onset Reaction(s) Facility (7 sources) Iodine; Translations: [IODINE] Drug Allergy 11-03-2006 AOF, Unknown [facility] Repository Medications Current Medications Medication Drug Class(es) Dates Sig (Normalized) Sig (Original) [id number] 200 actuat albuterol 0.09 mg/actuat metered dose [...] STRUCTURES ARE THE SOLE RESPONSIBILITY OF THE RADIAL DRILL OPERATOR SUBMITTING THE ORIGINAL REPORT (NOT THIS ADDENDUM) Electronically signed by: SUKHJINDER MOONEY MD Addendum Ends Patient Name: PILO GREGORY STUDY: CT CARDIAC SCORING; 03/24/2023 10:58 am INDICATION: htn, hyperlipedmia E78.5: Hyperlipidemia R07.89: Chest tightness. COMPARISON: None. ACCESSION NUMBER(S): [id number] ORDERING CLINICIAN: BROOKS CASTRO TECHNIQUE: Using prospective [...] al. JACC 2015 (http://dx.doi.org/10. 1016/j.j [email or web address]) [place] Worker: Dr. Valerio Morris, Date: 03/24/2023 11:23 am Electronically signed by: SUKHJINDER MOONEY MD [facility] CT Cardiac Scoringon 023 CT Cardiac Scoring Normal [facility] 250 DO Work Phone: Tobacco Screening.on 023 Tobacco use status [facility] b) No [facility] 250 DO Work Phone: [facility] CARDIAC STRESS/REST INJE CTIONon 03-01-2023 [facility] CARDIAC STRESS/REST INJECTION Patient Name: PILO GREGORY STUDY: MYOCARDIAL PERFUSION STRESS TEST WITH EXERCISE CONVERTED TO LEXISCAN Performing facility: [facility], [address] [place] [address], [address], [place] [id number] [facility] Provider: Brooks Castro MD, FAC PCP: Dr. Ellis Tomlin Supervising provider: Haley Osullivan MD, FACC INDICATION: Dyspnea Chest tightness HISTORY: Gender: F; Age: 77 y/o ; Height: 0 cm; Weight: 0 kg. Chest Pain; High Cholesterol; SOB; Denies smoking. COMPARISON: No comparison. ACCESSION NUMBER(S): [id number]; [id number]; [id number] ORDERING CLINICIAN: BROOKS CASTRO TECHNIQUE: ONE DAY [...] Electronically signed by: HALEY OSULLIVAN MD Normal [facility] No Panel Informationon 03-[address] [facility] 250 DO Work Phone: LIPID PROFILEon 02-27-2023 CHOL-HDL RATIO NORM SEE BELOW Normal [facility] Comment on above: Result Comment: 3.3 - 4.4 LOW RISK 4.4 - 7.1 AVERAGE RISK 7.1 - 11.0 MODERATE RISK >11.0 HIGH RISK Performed By: #### L IPID #### [facility] [address] [place] [address] Dr. Krystle Clement Cholesterol [Mass/Vol] 211 mg/dL Critically high <=200 [facility] Comment on above: Performed By: #### L IPID #### [facility] [address] [address] [address] Krystle Clement Cholesterol in HDL [Mass/Vol] 52 mg/dL Normal 40-60 [facility] Comment on above: Performed By: #### L IPID #### [facility] [address] [place] [address] Dr. Krystle Clement Cholesterol in LDL [Mass/Vol] 143.0 mg/dL Normal [facility] Comment on above: Performed By: #### L IPID #### [facility] [address] [address] [address] Krystle Clement Cholesterol.total/ Cholesterol in HDL [Mass ratio] 4.1 {ratio} Normal [facility] Comment on above: Performed By: #### L IPID #### [facility] [address] [address] [address] Krystle Clement HDL NORMAL > or = 60 mg/dl - LO W CARDIOVASCULAR RISK <40 mg/dl - HIGH CARDIOVASCULAR RISK Normal [facility] Comment on above: Performed By: #### L IPID #### [facility] [address] [address] [address] Krystle Clement LDL CALC NORMAL SEE BELOW Normal [facility] Comment on above: Result Comment: <100 mg/dl OPTIMAL 100 - 129 mg/dl NEAR OR ABOVE OPTIMAL 130 - 159 mg/dl BORDERLINE HIGH 160 - 189 mg/dl HIGH >190 mg/dl VERY HIGH Performed By: #### L IPID #### [facility] [address] [address] [address] Krystle Clement Triglyceride [Mass/Vol] 80 mg/dL Normal <=150 [facility] Comment on above: Performed By: #### L IPID #### [facility] [address] [address] [address] Krystle Clement VLDL CALC 16.0 mg/dL Normal [facility] Comment on above: Performed By: #### L IPID #### [facility] [address] [address] [address] Krystle Clement Office Visit (Cardiology)on 02-13-2023 [...] Status:Hold For - Scheduling,Retrospecti ve Authorization; Requested for:[id number]; Radiologist to Determine Optimal Study : Y What are the patient's signs and symptoms? : dyspnea chest tightness Chest tightness, Dyspnea, Hyperlipidemia Lipid Panel; Status:Active - Retrospective Authorization; Requested for:[id number]; Class 1 obesity with body mass index (BMI) of 30.0 to 30.9 in adult Healthy Weight Tips; Status:Complete - Retrospective Authorization; Done: [id number] Some eating tips that can help you lose weight.; Status:Complete - Retrospective Authorization; Done: [id number] Dyspnea IO EKG Electrocardiogram- 12 Lead; Status:Complete; Done: [id number] SocHx: Never a smoker Tobacco Use Screening; Status:Complete; Done: [id number] Tobacco Use Screening; Status:Complete; Done: [id number] Patient Instructions Please bring all medicines, vitamins, [...] times, but not consistently, and that the protein chemist felt that her shortness of breath is [...] echocardiogram that was done on 01/16/2023 at [facility]. Assessment: 1. 77-year-old with exertional shortness of [...] long hist (more content not included)... Normal QA on Request Tobacco Screening.on 023 Adult depression screening assessment No [facility] [place] 250 DO Work Phone: Fall risk assessment a) No falls within the last year [facility] 250 DO Work Phone: Tobacco use status [facility] b) No [facility] 250 DO Work Phone: ECHOCARDIO M/2D COMPLETEon 0 01-16-2023 ECHOCARDIO M/2D COMPLETE Patient: PILO GREGORY Exam Date: 01/16/2023 : 1945 Gender:F Ordering : DR KATERINA TOMLIN M.D. Admission #: [id number] Family : Order #: [id number] CLICK HERE TO VIEW EXAM ECHOCARDIOGRAM REPORT [...] Stern M.D. on 01/16/2023 at 14:53 Normal [facility] B-Type Natriuretic Peptideon 01-04-2023 B-Type Natriuretic Peptide see note [facility] Other B-Type Natriuretic Peptide 582.0 pg/ml <=1,800.0 pg/ml [facility] Other BNPon 01-04-2023 Natriuretic peptide B (Bld) [Mass/Vol] 582.0 pg/mL Normal <=1,800.0 [facility] Comment on above: Performed By: #### B SURGICAL ORDERLY, BMP #### [facility] [address] [place] [address] Dr. Krystle Clement CBC AUTO DIFFon 01-04-2023 BASO # 0.0 103/ul Normal 0.0-0.1 [facility] Comment on above: Performed By: #### C BC #### [facility] [address] [place] [address] Dr. Krystle Clement Basophils/100 WBC (Bld) 0.7 % Normal 0.2-2.0 [facility] Comment on above: Performed By: #### C BC #### [facility] [address] [place] [address] Dr. Krystle Clement EO # 0.4 103/ul Normal 0.0-0.7 [facility] Comment on above: Performed By: #### C BC #### [facility] [address] [place] [address] Dr. Krystle Clement Eosinophils/100 WBC (Bld) 5.7 % Normal 0.9-7.0 [facility] Comment on above: Performed By: #### C BC #### [facility] [address] [place] [address] Dr. Krystle Clement Erythrocyte distribution width (RBC) [Ratio] 12.9 % Normal 11.0-15.0 [facility] Comment on above: Performed By: #### C BC #### [facility] [address] [place] [address] Dr. Krystle Clement Hematocrit (Bld) [Volume fraction] 44.3 % Normal 36.0-48.0 [facility] Comment on above: Performed By: #### C BC #### [facility] [address] [place] [address] Dr. Krystle Clement Hemoglobin (Bld) [Mass/Vol] 15.0 g/dL Normal 12.0-16.0 [facility] Comment on above: Performed By: #### C BC #### [facility] [address] [place] [address] Dr. Krystle Clement IG # 0.02 10e3/ul Normal 0.00-0.03 [facility] Comment on above: Performed By: #### C BC #### [facility] [address] [place] [address] Dr. Krystle Clement IG % 0.3 % Normal 0.0-0.5 [facility] Comment on above: Performed By: #### C BC #### [facility] [address] [place] [address] Dr. Krystle Clement LYMPH # 1.1 103/ul Critically low 1.2-3.8 [facility] Comment on above: Performed By: #### C BC #### [facility] [address] [place] [address] Dr. Krystle Clement Lymphocytes/100 WBC (Bld) 18.1 % Critically low 20.5-60.0 [facility] Comment on above: Performed By: #### C BC #### [facility] [address] [place] [address] Dr. Krystle Clement MANUAL DIFF REQ NO Normal [facility] Comment on above: Performed By: #### C BC #### [facility] [address] [place] [address] Dr. Krystle Clement MCH (RBC) [Entitic mass] 30.9 pg Normal 26.7-34.0 [facility] Comment on above: Performed By: #### C BC #### [facility] [address] [place] [address] Dr. Krystle Clement MCHC (RBC) [Mass/Vol] 33.9 g/dL Normal 29.9-35.2 [facility] Comment on above: Performed By: #### C BC #### [facility] [address] [place] [address] Dr. Krystle Clement MCV (RBC) [Entitic vol] 91.3 fL Normal 81.0-99.0 [facility] Comment on above: Performed By: #### C BC #### [facility] [address] [place] [address] Dr. Krystle Clement MONO # 0.7 103/ul Normal 0.3-0.8 [facility] Comment on above: Performed By: #### C BC #### [facility] [address] [place] [address] Dr. Krystle Clement Monocytes/100 WBC (Bld) 11.7 % Normal 1.7-12.0 [facility] Comment on above: Performed By: #### C BC #### [facility] [address] [place] [address] Dr. Krystle Clement NEUT # 3.9 103/ul Normal 1.4-6.5 [facility] Comment on above: Performed By: #### C BC #### [facility] [address] [place] [address] Dr. Krystle Clement Neutrophils/100 WBC (Bld) 63.5 % Normal 43.0-75.0 [facility] Comment on above: Performed By: #### C BC #### [facility] [address] [place] [address] Dr. Krystle Clement Platelet mean volume (Bld) [Entitic vol] 8.8 fL Critically low 9.5-13.5 [facility] Comment on above: Performed By: #### C BC #### [facility] [address] [place] [address] Dr. Krystle Clement PLT 232 103/ul Normal 150-450 [facility] Comment on above: Performed By: #### C BC #### [facility] [address] [place] [address] Dr. Krystle Clement RBC 4.85 106/ul Normal 4.20-5.40 [facility] Comment on above: Performed By: #### C BC #### [facility] [address] [place] [address] Dr. Krystle Clement WBC 6.1 103/ul Normal 4.0-11.0 [facility] Comment on above: Performed By: #### C BC #### [facility] [address] [place] [address] Dr. Krystle Clement PROF CHEM 8 (BAS METB)on Anion gap [Moles/Vol] 11.6 mmol/L Normal [facility] Comment on above: Performed By: #### B SURGICAL ORDERLY, BMP #### [facility] [address] [address] [address] Krystle Clement Calcium [Mass/Vol] 9.5 mg/dL Normal 8.5-10.1 [facility] Comment on above: Performed By: #### B SURGICAL ORDERLY, BMP #### [facility] [address] [address] [address] Krystle Clement Chloride [Moles/Vol] 110 mmol/L Critically high 98-107 [facility] Comment on above: Performed By: #### B SURGICAL ORDERLY, BMP #### [facility] [address] [address] [address] Krystle Clement CO2 [Moles/Vol] 29.7 mmol/L Normal 21.0-32.0 [facility] Comment on above: Performed By: #### B SURGICAL ORDERLY, BMP #### [facility] [address] [place] [address] Dr. Krystle Clement Creatinine [Mass/Vol] 1.11 mg/dL Critically high 0.55-1.02 [facility] Comment on above: Performed By: #### B SURGICAL ORDERLY, BMP #### [facility] [address] [place] [address] Dr. Krystle Clement EGFR-AF BARBADIAN 58 mL/min/1.73m2 Critically low >=60 [facility] Comment on above: Performed By: #### B SURGICAL ORDERLY, BMP #### [facility] [address] [place] [address] Dr. Krystle Clement EGFR-NON AF BARBADIAN 48 mL/min/1.73m2 Critically low >=60 [facility] Comment on above: Performed By: #### B SURGICAL ORDERLY, BMP #### [facility] [address] [address] [address] Krystle Clement Glucose [Mass/Vol] 77 mg/dL Normal 74-106 [facility] Comment on above: Performed By: #### B SURGICAL ORDERLY, BMP #### [facility] [address] [place] [address] Dr. Krystle Clement Potassium [Moles/Vol] 4.3 mmol/L Normal 3.5-5.1 [facility] Comment on above: Performed By: #### B SURGICAL ORDERLY, BMP #### [facility] [address] [address] [address] Krystle Clement Sodium [Moles/Vol] 147 mmol/L Critically high 136-145 [facility] Comment on above: Performed By: #### B SURGICAL ORDERLY, BMP #### [facility] [address] [place] [address] Dr. Krystle Clement Urea nitrogen [Mass/Vol] 16.0 mg/dL Normal 7.0-18.0 [facility] Comment on above: Performed By: #### B SURGICAL ORDERLY, BMP #### [facility] [address] [place] [address] Dr. Krystle Clement Urea nitrogen/Creatinin e [Mass ratio] 14.4 mg/mg Normal [facility] Comment on above: Performed By: #### B SURGICAL ORDERLY, BMP #### [facility] [address] [place] [address] CHEST WO CONon [...] by: BARBARA CHO Date: 2022-11-03 15:55 Normal [facility] MAMM SCREEN 3D ITALIA CADon 11-03-2022 MG MAMM SCREEN 3D ITALIA CAD Patient: PLIO GREGORY Exam Date: 11/03/2022 : 1945 Gender:F Ordering : DR KATERINA TOMLIN M.D. Admission #: [id number] Family : Order #: [id number] CLICK HERE TO VIEW EXAM RADIOLOGY REPORT PROCEDURE: MAMMOGRAM SCREENING 3D BILATERAL CAD COMPARISON: MAMM SCREEN ITALIA W CAD, 12/02/2019. MAMM SCREEN 3D ITALIA CAD, 10/04/2021. INDICATIONS: Screening mammography Calculator Name NCI Breast Cancer Risk Assessment Tool 5 Year Breast Cancer Risk 3.70% Lifetime Breast Cancer Risk 7.90% Personal Breast Cancer No Personal Ovarian Cancer No Treatments None Family Cancers Mother with breast cancer at age 58. LOCATION: [facility] BREAST COMPOSITION: Scattered areas fibroglandular density. FINDINGS: [...] Cho MD on 11/03/2022 at 15:57 Normal [facility] [address] CHEST WO CONon 03-10-2022 CT [...] by: YFN SELF Date: 2022-03-10 10:46 Normal [facility] Superficial Wound Cultureon 11-23-2018 Superficial Wound [...] RESISTANT TO ALL B-LACTAM DRUGS. PERFORMED BY: [place] [id number] PATHOLOGIST POLICE CAPTAIN CRISTHIAN REYEZ M.D. [facility] Comment on above: Performed By: #### C USUP #### [address] Vital Signs Date Time Vital Sign Value Performing Clinician Facility 04-07-2023 13:30-0400 Body height 162.56 cm Katerina Tomlin Other [facility] Other 04-07-2023 13:30-0400 Body mass index (BMI) [Ratio] 29.69 kg/m2 Katerina Tomlin Other [facility] Other 04-07-2023 13:30-0400 Body weight 78.47 kg Katerina Tomlin Other [facility] Other 04-07-2023 13:30-0400 Diastolic blood pressure 76 mm[Hg] Katerina Tomlin Other [facility] Other 04-07-2023 13:30-0400 Systolic blood pressure 161 mm[Hg] Katerina Tomlin Other [facility] Other 03-20-2023 16:02-0400 Diastolic blood pressure 82 mm[Hg] Katerina Tomlin Work Phone: [email or web address] 989 DO Work Phone: 03-20-2023 16:02-0400 Diastolic blood pressure 80 mm[Hg] Katerina Tomlin Work Phone: [employer] 250 DO Work Phone: 03-20-2023 16:02-0400 Systolic blood pressure 138 mm[Hg] Katerina Tomlin Work Phone: [facility] 250 DO Work Phone: 03-20-2023 15:32-0400 Body height 160.02 cm Katerina Tomlin Work Phone: [facility] 250 DO Work Phone: 03-20-2023 15:32-0400 Body mass index (BMI) [Ratio] 30.47 kg/m2 Katerina Tomlin Work Phone: [facility] 250 DO Work Phone: 03-20-2023 15:32-0400 Body surface area Derived from formula 1.81 m2 Katerina Tomlin Work Phone: [facility] 250 DO Work Phone: 03-20-2023 15:32-0400 Body weight 78.02 kg Katerina Tomlin Work Phone: [facility] 250 DO Work Phone: 03-20-2023 15:32-0400 Diastolic blood pressure 86 mm[Hg] Katerina Tomlin Work Phone: [facility] 250 DO Work Phone: 03-20-2023 15:32-0400 Heart rate 74 /min Katerina Tomlin Work Phone: [facility] 250 DO Work Phone: 03-20-2023 15:32-0400 Systolic blood pressure 144 mm[Hg] Katerina Tomlin Work Phone: [facility] 250 DO Work Phone: 02-27-2023 14:47-0400 143 1 Katerina Tomlin Work Phone: [facility] 250 DO Work Phone: Comment on above: FSLDL 02-13-2023 09:36-0400 Diastolic blood pressure 70 mm[Hg] Katerina Tomlin Work Phone: [facility] 250 DO Work Phone: 02-13-2023 09:36-0400 Systolic blood pressure 138 mm[Hg] Katerina Tomlin Work Phone: [facility] 250 DO Work Phone: 02-13-2023 09:35-0400 Body height 160.02 cm Katerina Tomlin Work Phone: [facility] 250 DO Work Phone: 02-13-2023 09:35-0400 Body mass index (BMI) [Ratio] 30.65 kg/m2 Katerina Tomlin Work Phone: [facility] 250 DO Work Phone: 02-13-2023 09:35-0400 Body surface area Derived from formula 1.82 m2 Katerina Tomlin Work Phone: [facility] 250 DO Work Phone: 02-13-2023 09:35-0400 Body weight 78.47 kg Katerina Tomlin Work Phone: [facility] 250 DO Work Phone: 02-13-2023 09:35-0400 Diastolic blood pressure 72 mm[Hg] Katerina Tomlin Work Phone: [facility] 250 DO Work Phone: 02-13-2023 09:35-0400 Heart rate 63 /min Katerina Tomlin Work Phone: [facility] 250 DO Work Phone: 02-13-2023 09:35-0400 Systolic blood pressure 130 mm[Hg] Katerina Tomlin Work Phone: [facility] 250 DO Work Phone: 01-02-2023 09:30-0500 Body height 162.56 cm Katerina Tomlin Other [facility] Other 01-02-2023 09:30-0500 Body mass index (BMI) [Ratio] 29.52 kg/m2 Katerina Tomlin Other [facility] Other 01-02-2023 09:30-0500 Body weight 78.02 kg Katerina Tomlin Other [facility] Other 01-02-2023 09:30-0500 Diastolic blood pressure 70 mm[Hg] Katerina Tomlin Other [facility] Other 01-02-2023 09:30-0500 SaO2% (BldA) [Mass fraction] 98 % Katerina Tomlin Other [facility] Other 01-02-2023 09:30-0500 Systolic blood pressure 142 mm[Hg] Katerina Tomlin Other [facility] Other Encounters Encounter Date Encounter Type Care Provider Facility Start: 11-28-2023 End: 11-28-2023 ambulatory CHOCO A PETITTI Not Available Start: 10-03-2023 End: 10-03-2023 ambulatory CHOCO A PETITTI Not Available Start: 04-07-2023 End: 04-07-2023 ambulatory Katerina Tomlin Other [facility] Other Start: 04-07-2023 Patient encounter procedure Katerina Tomlin [facility] Start: 03-28-2023 Chart Update Katerina Tomlin Work Phone: [facility] 250 DO Work Phone: Start: 03-24-2023 Chart Update Katerina Tomlin Work Phone: [facility] 250 DO Work Phone: Start: 03-24-2023 ambulatory Brooks Marquez Facility: [id number] Start: 03-02-2023 Chart Update Katerina Tomlin Work Phone: [facility] 250 DO Work Phone: Start: 03-01-2023 ambulatory Brooks Marquez Facility: [id number] Start: 02-27-2023 End: 02-28-2023 ambulatory [facility] Facility:H1 Start: 02-14-2023 End: 02-14-2023 ambulatory Katerina Tomlin Other [facility] Other Start: 02-14-2023 Telephone encounter Katerina Tomlin [facility] Start: 02-13-2023 Office consultation new/estab patient 60 min aKterina Tomlin Work Phone: [facility] 250 DO Work Phone: Start: 02-13-2023 ambulatory MD BROOKS CASRTO Facilit y: Start: 01-18-[address] Katerina Tomlin Facility:[facility] Start: 01-17-2023 End: 01-17-2023 ambulatory Katerina Tomlin Other [facility] Other Start: 01-17-2023 Telephone encounter Katerina Tomlin [facility] Start: 01-16-2023 End: 01-17-[address] KATERINA TOMLIN Facility: Start: 01-05-2023 End: 01-05-2023 ambulatory Katerina Tomlin Other [facility] Other Start: 01-05-2023 Telephone encounter Katerina Tomlin [facility] Start: 01-04-2023 End: 01-05-[address] KATERINA TOMLIN Facility: Start: 01-02-2023 End: 01-02-2023 ambulatory Katerina Tomlin Other [facility] Other Start: 01-02-2023 Office outpatient vi sit 15 minutes Katerina [facility] Start: 11-03-2022 End: 11-04-2022 ambulatory DAYANNA LOBO . Facility: Start: 03-10-2022 End: 03-11-2022 ambulatory DAYANNA LOBO . Facility: Start: 11-23-2018 End: 11-23-2018 Patient encounter procedure Mello Dang Facility:[facility] Start: 10-17-2018 End: 10-17-2018 Patient encounter procedure EMILY Oleg YIN [facility] Procedures Date Procedure Procedure Detail Performing Clinician Appendectomy Katerina Tomlin Work Phone: section Katerina ochoa Work Phone: Colonoscopy Katerina Tomlin Work Phone: Tonsillectomy and adenoidectomy Katerina Tomlin Work Phone: Plan of Treatment Date Care Activity Detail Author Start: 03-20-2023 FUV, Provider: Brooks Castro, Status: Pen, Time: 3:30 PM FUV, Provider: Brooks Castro, Status: Pen, Time: 3:[address] [facility] 250 DO Work Phone: Start: 03-01-2023 STRESS NUC, Provider : ARACELI CHERRYI NUCLEAR 01,[id number], Status: Pen, Time: 8:00 AM STRESS NUC, Provider: ARACELI CHERRYI NUCLEAR 01,[id number], Status: Pen, Time: 8:[address] [facility] 250 DO Work Phone: Immunizations Immunization Date Immunization Notes Care Provider Fa vonda 10-25-2021 Pfizer-BioNTech COVI D-19 Vacc 30 MCG/0.3ML Intramuscular Suspension Katerina Tomlin Work Phone: [facility] 250 DO Work Phone: 03-25-2021 Pfizer-BioNTech COVI D-19 Vacc 30 MCG/0.3ML Intramuscular Suspension Katerina Tolmin Work Phone: [place] [address] DO Work Phone: 03-01-2021 Pfizer-BioNT[employer]ellect[employer] COVI D-19 Vacc 30 MCG/0.3ML Intramuscular Suspension Katerina Markus Tomlin Work Phone: [place] [address] DO Work Phone: 04-09-2015 pneumococcal conjuga te vaccine, 13 valent Katerina Tomlin Work Phone: [place] [address] DO Work Phone: 08-31-2008 pneumococcal polysaccharide vaccine, 23 valent Katerina Tomlin Work Phone: [place] [address] DO Work Phone: Payers Date Payer Category Payer Self-pay 1958 Medicare [id number] 1958 Unknown [id number] 1945 Unknown [id number] 2.16. [id number] 1945 Unknown [id number] 2.16.84 0.1.021246.3.579.2.593 1945 Unknown [id number] 2.16.84 0.1.331260.3.579.2.593 1945 Unknown [id number] 2.16.84 0.1.544605.3.579.2.593 1945 Unknown [id number] 2.16.84 0.1.760200.3.579.2.593 1945 Unknown [id number] 2.16.84 0.1.377533.3.579.2.593 1945 Unknown [id number] 2.16.84 0.1.000336.3.579.2.593 1945 Unknown [id number] 2.16.84 0.1.879305.3.579.2.593 1946 Unknown [id number] 2.16.8 40.1.988704.3.579.2.1068 1946 Unknown [id number] 2.16.8 40.1.697196.3.579.2.1068 1946 Unknown [id number] 2.16.84 0.1.413460.3.579.2.1259 1945 Unknown [id number] 2.16.840 .1.184222.3.579.2.1259 Unknown [id number] 2.16.840 .1.308289.3.579.2.531 Unknown Unknown [id number] Social History Date Type Detail Facility Unknown if ever smoked [facility] Other Sex Assigned At Sex Assigned At Bir th [facility] Other [facility] ingestion [facility] Work Phone: Comment on above: couple weekly whiske y; coffee daily; Evaluation note 04-07-2023 Note Date & Type Note Facility 04-07-2023 Evaluation note Encounter Date Diagnosis Assessment Notes Mar, Inflamed seborrheic keratosis (ICD-10 - L82.0) cryotherapy on lesion [facility] Other Evaluation note 04-07-2023 Note Date & Type Note Facility 04-07-2023 Evaluation note Encounter Date Diagnosis Assessment Notes Mar, Inflamed seborrheic keratosis (ICD-10 - L82.0) cryotherapy on lesion. There is no tick bite. [facility] Other Evaluation note 01-17-2023 Note Date & Type Note Facility 01-17-2023 Evaluation note Encounter Date Diagnosis Assessment Notes Dec, Dyspnea, unspecified (ICD-10 - R06.00) Dec, Other abnormalities of breathing (ICD-10 - R06.89) Dec, Abnormal EKG (ICD-10 - R94.31) [facility] Other Evaluation note 01-02-2023 Note Date & Type Note Facility 01-02-2023 Evaluation note Encounter Date Diagnosis Assessment Notes Dec, Leg edema (ICD-10 - R60.0) Discussed differential including heart failure. Pt would like to get tests to have a cause for her ongoing symptoms. Dec, Dyspnea on exertion (ICD-10 - R06.09) PFT this week. Complete tests as ordered. Pt agrees. [facility] Other Chief complaint Narrative - Reported Note Date & Type Note Facility Chief complaint Narrative - Reported PILO GREGORY is being seen for a consultation for. 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 77-year-old with exertional shortness of breath and [...] stress perfusion imaging study, may switch to Lexiscan Myoview as needed3. We talked about shortness [...] call if further questions arise,Sincerely,Brooks Castro MD [facility] 250 DO Work Phone: Summary Purpose Family [...] 1 Abnormal EKG (R94.31 ) [facility]erral Organization [facility] Referring Provider First Name Katerina Referring Provider Last Name Nabor Referring Provider Specialty Family [facility] cine Referred Organization [facility] enter Referred Provider Brandt Ramírez Referred Address [address] [facility] [address] [place] [address] Referred Provider Specialty Cardiology Referral Priority Routine General Notes Bindu Thomas 12:56:01 PM >received today, attachments made, notes locked, and referral faxed Additional Source Comments INFORMATION SOURCE (unrecogn ized section and content) DATE CREATED AUTHOR 10/20/2018 [facility] DATE CREATED AUTHOR AUTHOR'S ORGANIZ ATION 12/13/2018 [facility] DATE CREATED AUTHOR AUTHOR'S ORGANIZ ATION 02/13/2023 [facility] DATE CREATED AUTHOR AUTHOR'S ORGANIZ ATION 02/14/2023 [facility] DATE CREATED AUTHOR AUTHOR'S ORGANIZ ATION 03/03/2023 [facility] DATE CREATED AUTHOR AUTHOR'S ORGANIZ ATION 04/07/2023 [facility] DATE CREATED AUTHOR AUTHOR'S ORGANIZ ATION 11/29/2023 [facility] EPIC REASON FOR VISIT [...] BE BASED ON THE PRIMARY CLINICAL RECORDS. [facility] [employer] provides no warranty or guarantee of the accuracy or completeness of information in this document.
[2024-01-22] MEDS: LACTATED RINGER'S SOLUTION 1,000 ML 75 ML IV (07:00)
[2024-01-22] MEDS: LACTATED RINGER'S SOLUTION 1,000 ML 50 ML IV (07:15)
[2024-01-22] MEDS: LIDOCAINE HCL 1% 100 MG/10 ML MDV INJ (07:34)
--- NOTE | 2024-01-22 07:58 | P.ON_ITS ---
Date of procedure: 01/22/24 Procedure: Procedure Diagnostic flexible broncohscopy with bronchoalveolar lavage (BAL) Indication Increased nodules on chest CT Findings 1. Benign appearing endotracheal nodules 2. No endobronchial lesions Anesthesia 1. General anesthesia - please see their records 2. Lidocaine 1% - 10mL Specimens 1. BAL of right upper lobe 2. BAL of right middle lobe Estimated blood loss 0 Complications None Description Informed consent was obtained after risks, benefits, and alternatives were discussed with the patient.? Time out was initiated to confirm the correct patient, site, and procedure with all present voicing in the affirmative. Patient was brought to the operating room suite where noninvasive monitoring was utilized.? Sedation & anesthesia were administered by the anesthesia department- please refer to their records for further information.? Tape was placed over the patient's eyes to prevent spillage of secretions.? A laryngeal mask airway was placed by anesthesia.? The vocal cords were observed without gross evidence of nodules, ulcers, or masses.? 5mL of 1% lidocaine were instilled topically to the vocal cords.? The bronchoscope was then passed between the vocal cords and advanced through the trachea. Several benign appearing endotracheal nodules were noted. The bronchoscope reached the distal trachea where an additional 5mL of 1% lidocaine were instilled topically to the main sarah.? The main sarah was sharp without splaying or evidence of underlying mass. The bronchoscope was then advanced through the right main bronchus to the right upper lobe, where the apical, posterior, and anterior segments were visualized.? The bronchoscope was advanced through the bronchus intermedius to the right middle lobe or the medial and lateral segments visualized.? The bronchoscope was then advanced to the right lower lobe superior, medial, anterior, lateral, and posterior basilar segments.? No endobronchial lesions, exudate, or other abnormalities were noted. The bronchoscope was retracted to the main sarah and advanced through the left main bronchus to the left upper lobe where the upper division apicoposterior and anterior, as well as lingular superior and inferior segments were visualized.? The bronchoscope was then advanced into the left lower lobe where the superior, anteromedial, lateral, and posterior basilar segments visualized.? No endobronchial lesions, exudate, or other abnormalities were noted. Next, the bronchoscope was wedged in the right upper lobe and a BAL was pe rformed. After adequate sample was returned, the bronchoscope was then advanced into the right middle lobe where a second BAL was obtained. After obtaining this second sample, the bronchoscope was withdrawn.? Patient tolerated procedure well. Surgeon: Alexandru Moncada Condition: stable Disposition: same day
--- NOTE | 2024-01-22 08:12 | PC.NURSE ---
Harsh non-productive cough noted
--- NOTE | 2024-01-22 08:16 | PC.NURSE ---
Harsh non-productive cough continues
--- NOTE | 2024-01-22 08:20 | PC.NURSE ---
Infrequent harsh non-productive cough noted
--- NOTE | 2024-01-22 08:58 | PC.NURSE ---
iNFREQUENT DRY COUGH NOTED
== END 2024-01-22 08:59 | disposition home or self-care (01) ==
PROVIDERS: PCP Family Medicine; Visit Provider Internal Medicine
PROC: (CPT 31624; principal; 2024-01-22 07:15)
DX: R91.8 Other nonspecific abnormal finding of lung field (principal); Z86.16 Personal history of COVID-19; I89.8 Other specified noninfective disorders of lymphatic vessels and lymph nodes
CPT/HCPCS: 31624; 36415; 87070; 87102; 87116; 87205; 87206; 89050; 89051; 99999; J1094; J2704

== ENCOUNTER 2024-03-04 10:11 | Outpatient (OUT) | payer MEDICARE, OTHER, SELFPAY ==
--- NOTE | 2024-03-04 10:23 | FL_ITS ---
[address] [address] Patient Name: PILO GREGORY MRN: [id number] date: 1945 Sex: F Assigned Patient Location: [place] Current Patient Location: [place] Accession/Order Number: [id number] Exam Date: 03/04/2024 10:40 Report Date: 03/04/2024 12:23 At the request of: DAYANNA LOBO Procedure: FL barium swallow EXAMINATION: FL barium swallow, FL cineradiography HISTORY: Dysphagia R13.12 COMPARISON: No relevant comparison available. TECHNIQUE: A swallowing evaluation was performed with fluoroscopy in the usual manner. Standard level fluoroscopic mode of operation utilized. FINDINGS: ORAL PHASE: Normal deglutition. PHARYNGEAL PHASE: Normal swallowing. ASPIRATION: None. STRUCTURE: Normal. No visible obstruction, stricture, or dilatation. OTHER: Negative. FL/FL barium swallow IMPRESSION: Normal esophagram Electronically authenticated by: BARBARA CHO Date: 03/04/2024 12:23
--- OUTSIDE RECORDS SUMMARY | 2024-03-04 10:32 | XMS_ITS | CCD ---
Author Organization [facility] Care Team Providers Care Fruit Rancher Name Role Phone REYNOLDHAMZAH EMILY D Unavailable Unavailable Katerina Tomlin Unavailable Katerina Tomlin Unavailable [...] Unavailable NABOR, DR KATERINA Aparicio Admitting Unavailable TOMLNI, DR KATERINA Aparicio Attending Unavailable TOMLIN, DR KATERINA Aparicio Consulting Unavailable SAMSA ., DAYANNA Admitting Unavailable SAMSA ., DAYANNA Attending Unavailable SAMSA ., DAYANNA Consulting Unavailable NABOR, DR KATERINA Aparicio Primary Care Unavailable NABOR, DR KATERINA Aparicio Admitting Unavailable NABOR, DR KATERINA Aparicio Attending Unavailable WEST, DR BARBARA Galvan Consulting Unavailable NABOR, DR [...] Dr. Katerina Nina Primary Care Unav ailable Moha0Brooks olea Attending Unavailable Tomlin, Dr. Katerina Kelle Primary Care Unav ailable CHOCO DUVAL Attending Unavailable CHOCO DUVAL Attending Unavailable MD Katerina Tomlin Primary Care Provider [facility], DO Dayanna Attending Provider [facility], Dayanna Attending Unavailable [facility], Dayanna Admitting Unavailable Katerina Tomlin Primary Care Unavailable Allergies Allergy Classification Reported Allergen(s) Allergy Type Date of Onset Reaction(s) Facility (8 sources) Iodine; Translations: [IODINE] Drug Allergy 11-03-2006 AOF, Unknown [facility] Repository Medications Current Medications Medication Drug Class(es) Dates Sig (Normalized) Sig (Original) [id number] actuat albuterol 0.09 mg/actuat metered dose inhaler (7 sources) beta2-Adrenergic Agonist Start: 12-27-2023 take 1 puff(s) by inhalation every four hours as needed Albuterol Sulfate Active 1 PUFF INHALATION Every 4 hours December 27, 2023 1:00am Free[employer]Si puff as needed Inhalation every 4 hrs; Note: Source Status: Taking; Provider: Nabor Borges ( ) take 1 puff(s) by in halation every four hours as needed Albuterol Sulfate HFA 108 (90 Base) MCG/ACT 1 puff as needed Inhalation every 4 hrs Active loratadine 10 mg oral tablet (5 sources) Start: 12-29-2023 take 1 tablet by mouth once daily Loratadine (Claritin) 10 mg tablet Active 10 MG PO Daily December 29, 2023 1:00am take 1 tablet by mouth once michael y Loratadine 10 MG Oral Tablet TAKE 1 TABLET DAILY. Quantity: 0 Refills: 0 Ordered: 13-Feb-2023 DO Active Completed/Discontinued Medications Medication Drug Class(es) Dates Sig (Normalized) Sig (Original) azithromycin 250 mg oral tablet (1 source) Macrolide Antimicrobial Start: 4 End: 4 take 2 tablets by mouth once daily, then take 1 tablet by mouth once daily Azithromycin Discontinued TAB PO Daily December 27, 2023 1:00am December 29, 2023 12:16pm FreeTextSig: as directed Orally 2 tabs po today, then 1 tab daily x 4 more days; Note: Source Status: Start; Refills: 0; Provider: Nabor Aparicio Eye Drops SOLN (4 sources) Eye Drops SOLN a s directed Quantity: 0 Refills: 0 Ordered: 13-Feb-2023 DO Active Methylprednisolone (1 source) Corticosteroid Start: 4 End: 4 Methylprednisolone Discontinued MG PO As Directed December 27, 2023 1:00am December 29, 2023 12:16pm FreeTextSig: as directed Orally; Note: Source Status: Start; Refills: 0; Qty: 1 Packet; Provider: Nabor Aparicio nitroglycerin 0.4 mg sublingual tablet (2 sources) Nitrate Vasodilator Start: 3 Nitroglycerin 0.4 MG Sub[address]ual Tablet Sublingual PL[address] 1 TABLET UNDER THE TONGUE EVERY 5 MINUTES FOR UP TO 3 DOSES NEEDED FOR CHEST PAIN.CALL 911 IF PAIN PERSISTS. Quantity: 25 Refills: 3 Ordered: 13-Feb-2023 Matthew SHARMA [facility] Start : 13-Feb-2023 Active Problems Active Problems [...] Myalgia, unspecified site; Translations: [Myalgia] Episodic Other diseases of veins and lymphatics (1 source) Calcified lymph nodes; Translations: [Other specified noninfective disorders of lymphatic vessels and lymph nodes] 01-09-2024 Chronic Other diseases of veins and lymphatics (1 source) Other specified noninfective disorders of lymphatic vessels and lymph nodes; Translations: [Other noninfectious disorders of lymphatic channels] 12-29-2023 Chronic Other infections; including parasitic (4 sources) Personal history of other infectious and parasitic diseases; Translations: [Personal history of COVID-19] Episodic Other lower respiratory disease (6 sources) Dyspnea on exertion; Translations: [Other forms of dyspnea] Episodic Other lower respiratory disease (11 sources) Dyspnea; Translations: [Shortness of breath] Onset: 01-04-2023 Episodic Other lower respiratory disease (6 sources) Multiple nodules of lung; Translations: [Other nonspecific abnormal finding of lung field] 01-09-2024 Episodic Other lower respiratory disease (6 sources) [...] Onset: 01-07-2023 Episodic Other lower respiratory disease (7 sources) Other nonspecific abnormal finding of lung field; Translations: [Other nonspecific abnormal finding of lung field] Onset: 03-10-2022 Episodic Other lower respiratory disease [...] edema; Translations: [LOCALIZED EDEMA] Onset: 01-16-2023 Episodic Past or Other Problems Problem Classification Problem [...] Test Name Value Interpretation Reference Range Facility Body fluid differential cell countOrdered By: Dayanna Lobo on 01-22-2024 Differential panel (Body fld) 44 % [facility] Comment on above: The reference interv al and other method performance specifications have not been established for this body fluid. The test result must be integrated into the clinical context for interpretation. Cell Count/Diff, Fluidon Appearance, Fluid Hazy Normal [facility] Comment on above: Order Comment: Body Fluid Source: Other (Name in the Site) Body Fluid Site: RML Result Comment: The reference interval and other method performance specifications have not been established for this body fluid. The test result must be integrated into the clinical context for interpretation. Performed By: #### F LCCDIFF #### [address] Order Comment: Body Fluid Source: Other (Name in the Site) Body Fluid Site: Rul Color, Fluid Straw Normal [facility] Comment on above: Order Comment: Body Fluid Source: Other (Name in the Site) Body Fluid Site: RML Result Comment: The reference interval and other method performance specifications have not been established for this body fluid. The test result must be integrated into the clinical context for interpretation. Performed By: #### F LCCDIFF #### [address] Order Comment: Body Fluid Source: Other (Name in the Site) Body Fluid Site: Rul Color, Fluid Supernatant Straw Normal [facility] Comment on above: Order Comment: Body Fluid Source: Other (Name in the Site) Body Fluid Site: RML Result Comment: The reference interval and other method performance specifications have not been established for this body fluid. The test result must be integrated into the clinical context for interpretation. Performed By: #### F LCCDIFF #### [facility] [address] [place] [address] [place] Order Comment: Body Fluid Source: Other (Name in the Site) Body Fluid Site: Rul Eosinophils, Fluid 2 /100{WBC} Normal 0-3 [facility] Comment on above: Order Comment: Body Fluid Source: Other (Name in the Site) Body Fluid Site: RML Result Comment: PERF ORMED BY: [place] [address] PATHOLOGIST COMPUTER APPLICATIONS INSTRUCTOR CRISTHIAN REYEZ M.D. Performed By: #### F LCCDIFF #### [address] Order Comment: Body Fluid Source: Other (Name in the Site) Body Fluid Site: Rul Lymphocytes, Fluid 13 % Normal [facility] Comment on above: Order Comment: Body Fluid Source: Other (Name in the Site) Body Fluid Site: RML Result Comment: The reference interval and other method performance specifications have not been established for this body fluid. The test result must be integrated into the clinical context for interpretation. Performed By: #### F LCCDIFF #### [address] Lymphocytes, Fluid 11 % Normal [facility] Comment on above: Order Comment: Body Fluid Source: Other (Name in the Site) Body Fluid Site: Rul Result Comment: The reference interval and other method performance specifications have not been established for this body fluid. The test result must be integrated into the clinical context for interpretation. Performed By: #### F LCCDIFF #### [facility] [address] [place] [address] Monocytes/Macrophages , Fluid 44 % Normal [facility] Comment on above: Order Comment: Body Fluid Source: Other (Name in the Site) Body Fluid Site: RML Result Comment: The reference interval and other method performance specifications have not been established for this body fluid. The test result must be integrated into the clinical context for interpretation. Performed By: #### F LCCDIFF #### [facility] [address] [place] [address] Monocytes/Macrophages , Fluid 45 % Normal [facility] Comment on above: Order Comment: Body Fluid Source: Other (Name in the Site) Body Fluid Site: Rul Result Comment: The reference interval and other method performance specifications have not been established for this body fluid. The test result must be integrated into the clinical context for interpretation. Performed By: #### F LCCDIFF #### [facility] [address] Neutrophil, Fluid 41 % [facility] Comment on above: Order Comment: Body Fluid Source: Other (Name in the Site) Body Fluid Site: RML Result Comment: The reference interval and other method performance specifications have not been established for this body fluid. The test result must be integrated into the clinical context for interpretation. Performed By: #### F LCCDIFF #### [address] Neutrophil, Fluid 42 % [facility] Comment on above: Order Comment: Body Fluid Source: Other (Name in the [facility]) Body Fluid Site: Rul Result Comment: The reference interval and other method performance specifications have not been established for this body fluid. The test result must be integrated into the clinical context for interpretation. Performed By: #### F LCCDIFF #### [facility] [address] [place] [address] RBC, Fluid 2329 [facility] Comment on above: Order Comment: Body Fluid Source: Other (Name in the Site) Body Fluid Site: RML Result Comment: The reference interval and other method performance specifications have not been established for this body fluid. The test result must be integrated into the clinical context for interpretation. Performed By: #### F LCCDIFF #### [facility] [address] [place] [address] RBC, Fluid 2399 [facility] Comment on above: Order Comment: Body Fluid Source: Other (Name in the [facility]) Body Fluid Site: Rul Result Comment: The reference interval and other method performance specifications have not been established for this body fluid. The test result must be integrated into the clinical context for interpretation. Performed By: #### F LCCDIFF #### [facility] [address] [place] [address] TNC, Body Fluid 163 [facility] Comment on above: Order Comment: Body Fluid Source: Other (Name in the Site) Body Fluid Site: RML Result Comment: The reference interval and other method performance specifications have not been established for this body fluid. The test result must be integrated into the clinical context for interpretation. Performed By: #### F LCCDIFF #### [facility] [address] TNC, Body Fluid 352 Normal [facility] Comment on above: Order Comment: Body Fluid Source: Other (Name in the Site) Body Fluid Site: Rul Result Comment: The reference interval and other method performance specifications have not been established for this body fluid. The test result must be integrated into the clinical context for interpretation. Performed By: #### F LCCDIFF #### [facility] [address] Cells Counted Total [#] in B fredy fluidOrdered By: Dayanna Lobo on 01-22-2024 Cells Counted Total (Body fld) [#] 163 mm^3 [facility] Comment on above: The reference interv al and other method performance specifications have not been established for this body fluid. The test result must be integrated into the clinical context for interpretation. Color of Spun Body fluidOrde red By: Dayanna Lobo on 01-22-2024 Color (Spun body fld) Straw [facility] Comment on above: The reference interv al and other method performance specifications have not been established for this body fluid. The test result must be integrated into the clinical context for interpretation. Determination of appearance of body fluidOrdered By: Dayanna Lobo on 01-22-2024 Appearance (Body fld) Hazy [facility] Comment on above: The reference interv al and other method performance specifications have not been established for this body fluid. The test result must be integrated into the clinical context for interpretation. Erythrocytes [#/volume] in B fredy fluid by Automated countOrdered By: Dayanna Lobo on 01-22-2024 RBC Auto (Body fld) [#/Vol] 2329 mm^3 [facility] Comment on above: The reference interv al and other method performance specifications have not been established for this body fluid. The test result must be integrated into the clinical context for interpretation. Evaluation of color of body fluidOrdered By: Dayanna Lobo on 01-22-2024 Color (Body fld) Straw [facility] Comment on above: The reference interv al and other method performance specifications have not been established for this body fluid. The test result must be integrated into the clinical context for interpretation. Alex 01-22-2024 L Specimen: BC Received: 01/23/24 Status: CLAUDIA Req Num: [id number] Spec Type: Cytology Subm Dr: Dayanna Lobo DO Tissues: A BRONWASH (BRONCH) B BRONWASH (R UPPER LOBE) C BRONWASH (R MIDDLE LOBE) Procedures: HE/6, Gross/Micro L4/3, Cyto Prepstain/3, PAPSTN/3 Age/ Patient Sex Location Account Attending Physician Pilo Caban 78/F LABELL [id number] Dayanna Lobo DO SPEC NUM: [id number] RECD: 01/23/24 STATUS: OSCARGuillermo REQ NUM: [id number] MARK: 01/22/24 DR: Dayanna Lobo DO ENTERED: 01/23/[address] [facility] [address]: Tessa,Lab SPEC TYPE: Cytology DEPT: JASON HIYT ENTERED BY: [id number] RECV BY: [id number] ORDERED: HE/6, Gross/Micro L4/3, Cyto Prepstain/3, PAPSTN/3 ORDERED: HE/6, Gross/Micro L4/3, Cyto Prepstain/3, PAPSTN/3 Pathological Diagnosis A. Bronchial lavage: Rare atypical cells noted. B. R middle lobe lavage: Rare atypical cells noted. C. R upper lobe lavage: Rare atypical cells noted. Clinical Information Multiple Pulmonary Nodules Gross Description A. Received fresh labeled with the patient's name, date of and Bronchial lavage per requisition is 10 ml pale pink cloudy unfixed fluid. 1 Thin Prep slides are prepared. 1 cell blocks are prepared. (CC/nh) B. Received fresh labeled with the patient's name, date of and R middle lobe lavage is 3 ml pale rico cloudy unfixed fluid. 1 Thin Prep slides are prepared. 1 cell blocks are prepared. (CC/nh) Specimen: [id number] Received: 01/23/24 Status: CLAUDIA Carter Num: [id number] Spec Type: Cytology Subm Dr: Dayanna Lobo DO Tissues: A BRONWASH (BRONCH) B BRONWASH (R UPPER LOBE) C BRONWASH (R MIDDLE LOBE) Procedures: HE/6, Gross/Micro L4/3, Cyto Prepstain/3, PAPSTN/3 Patient: Pilo Caban [id number] (Continued) Specimen: [id number] Received: 01/23/24 (Continued) Gross Description (Continued) Signed (signature on file) Nitesh Chambers MD 01/24/24 1406 Specimen: [id number] Received: 01/23/24 Status: CLAUDIA Carter Num: [id number] Spec Type: Cytology Subm Dr: Dayanna Lobo DO Tissues: A BRONWASH (BRONCH) B BRONWASH (R UPPER LOBE) C BRONWASH (R MIDDLE LOBE) Procedures: HE/6, Gross/Micro L4/3, Cyto Prepstain/3, PAPSTN/3 Patient: Pilo Caban [id number] (Continued) Specimen: [id number] Received: 01/23/24 (Continued) Gross Description (Continued) C. Received fresh labeled with the patient's name, date of and R upper lobe lavage is 5 ml rico cloudy unfixed fluid. 1 Thin Prep slides are prepared. 1 cell blocks are prepared. (CC/nh) Specimen: [id number] Received: 01/23/24-1127 Status: CLAUDIA Carter Num: [id number] Spec Type: Cytology Subm Dr: Dayanna Lobo DO Tissues: A BRONWASH (BRONCH) B BRONWASH (R UPPER LOBE) C BRONWASH (R MIDDLE LOBE) Procedures: HE/6, Gross/Micro L4/3, Cyto Prepstain/3, PAPSTN/3 Patient: Pilo Caban [id number] (Continued) Signed (signature on file) Nitesh Chambers MD 01/24/24 1406 Normal [facility] Manual body fluid eosinophil s/100 leukocytesOrdered By: Dayanna Lobo on 01-22-2024 Eosinophils/100 WBC Manual cnt (Body fld) 2 /100{WBC} 0-3 [facility] Manual body fluid lymphocyte s/100 leukocytesOrdered By: Dayanna Lobo on 01-22-2024 Lymphocytes/100 WBC Manual cnt (Body fld) 13 % [facility] Comment on above: The reference interv al and other method performance specifications have not been established for this body fluid. The test result must be integrated into the clinical context for interpretation. Neutrophils/100 WBC Manual c nt (Body fld)Ordered By: Dayanna Lobo on 01-22-2024 Neutrophils/100 WBC (Body fld) 41 % [facility] Comment on above: The reference interv al and other method performance specifications have not been established for this body fluid. The test result must be integrated into the clinical context for interpretation. A. flavus Ab Immune diff Ql (S)on 01-01-2024 Aspergillus flavus Antibody Negative Neg:<1:1 [facility] A. niger IgE Qn (S)on 2023 Aspergillus niger Antibody Negative Neg:<1:1 [facility] Comment on above: Performed at: [facility] [address] [id number] Director: Skylar Ortega MD, Phone: [phone] Performed at: [facility] [id number] Director: Skylar Ortega MD, Phone: [phone] Adenosine monophosphate.cycl ic [Moles/Vol]on 01-01-2024 Cyclic Citrullinated Peptid IgG/IgA 0 units 0-19 [facility] Comment on above: Negative <20 Weak po sitive 20 - 39 Moderate positive 40 - 59 Strong positive >59Performed at: [place] [facility] [address] [id number] Director: García Salcedo PhD, Phone: [phone] Negative <20 Weak po sitive 20 - 39 Moderate positive 40 - 59 Strong positive >59Performed at: [facility] [id number] Director: García Salcedo PhD, Phone: [phone] Atypical perinuclear antineu trophil cytoplasmic antibodies measurementon 01-01-2024 Neutrophil cytoplasmic Ab.perinuclear.atypic al IF (S) [Titer] <1:20 titer Neg:<1:20 [facility] Comment on above: Serum is slightly he molyzedThe atypical pANCA pattern has been observed in asignificant percentage of patients with ulcerative colitis,primary sclerosing cholangitis and autoimmune hepatitis.Performed at: [employer] [facility] [id number] Director: Skylar Ortega MD, Phone: [phone] at: [facility] [id number] Director: García Salcedo PhD, Phone: [phone] Cefuroxime free [Mass/Vol]on 01-01-2024 Anti-Nuclear Antibody Profile Negative Negative [facility] Comment on above: Performed at: [facility] [address] [id number] Director: García Salcedo PhD, Phone: [phone] Performed at: [facility] [address] [id number] Director: García Salcedo PhD, Phone: [phone] Performed at: [facility] [address] [id number] Director: García Salcedo PhD, Phone: [phone] Performed at: [facility] [address] [id number] Director: García Salcedo PhD, Phone: [phone] H. capsulatum Ab CF Ql (S)on 01-01-2024 Histoplasma Mycelial Ab (Comp Fix) Negative Neg:<1:2 [facility] Histoplasma Yeast Ab (Comp Fix) Negative Neg:<1:2 [facility] Comment on above: Performed at: [facility] [address] [id number] Director: Skylar Ortega MD, Phone: [phone] Performed at: [employer] [facility] [employer] [facility] [address] [id number] Director: Skylar Ortega MD, Phone: [phone] Performed at: [facility] [address] [id number] Director: Skylar Ortega MD, Phone: [phone] Laboratory - Hematology and Cell countson 01-01-2024 ESR (Bld) [Velocity] 25 mm/h <=30 [facility] Myeloperoxidase Ab [Units/vo lume] in Serum by Immunoassayon 01-01-2024 Myeloperoxidase Ab IA Qn (S) <0.2 units 0.0-0.9 [facility] No Panel Informationon 12-31 Histoplasma Galactomannan Antigen Negative <0.5 ng/mL [facility] Comment on above: This test was develo ped and its performance characteristicsdetermined by [employer]. It has not been cleared orapproved by the Food and Drug Administration.Performed at: [employer] [facility], [place] [id number] Director: Lori Green MD, Phone: [phone] Aspergillus fumigatus Antibody Negative Neg:<1:1 [facility] Blastomyces dermatitidis Antibody Negative Neg:<1:1 [facility] Comment on above: Performed at: - [facility] [address] [id number] Director: Skylar Ortega MD, Phone: [phone] C-Reactive Protein, Quantitative 1.37 mg/dL <=0.50 [facility] Perinuclear ANCA (p-ANCA) Antibody <1:20 titer Neg:<1:20 [facility] Comment on above: Serum is slightly he molyzedThe presence of positive fluorescence exhibiting P-ANCA orC-ANCA patterns alone is not specific for the diagnosis ofWegener's Granulomatosis (WG) or microscopic polyangiitis.Decisions about treatment should not be based solely onANCA IFA results. The International ANCA Group Consensusrecommends follow up testing of positive sera with both ND-3 and MPO-ANCA enzyme immunoassays. As many as 5% serumsamples are positive only by EIA. Ref. AM J Clin [id number];111:507-513. Proteinase 3 Ab [Units/volum e] in Serum by Immunoassayon 01-01-2024 Proteinase 3 Ab IA Qn (S) <0.2 units 0.0-0.9 [facility] SCL-70 extractable nuclear A b IA Qn (S)on 01-01-2024 Scl-70 (Scleroderma) Antibody <0.2 AI 0.0-0.9 [facility] Serum angiotensin converting enzyme (MOJGAN) measurementon 01-01-2024 Angiotensin converting enzyme [Catalytic activity/Vol] 63 U/L 1482 [facility] Comment on above: Performed at: [id number] [place], [place] [id number] Director: García Salcedo PhD, Phone: [phone] Serum classic neutrophil cyt oplasmic antibody titer by immunofluorescenceon 01-01-2024 Neutrophil cytoplasmic Ab.classic IF (S) [Titer] <1:20 titer Neg:<1:20 [facility] Comment on above: Serum is slightly he molyzed Serum or plasma rheumatoid f actor measurement (units/volume)on 01-01-2024 Rheumatoid factor Qn 10.3 [IU]/mL <14.0 [facility] Comment on above: Performed at: [employer] [place], [place] [id number] Director: García Salcedo PhD, Phone: [phone] CT CARDIAC SCORINGon 023 CT CARDIAC SCORING Addendum Begins Patient Name: PILO CABAN ADDENDUM: NON-CARDIOVASCULAR FINDINGS INCLUDED LUNGS, AIRWAYS AND [...] STRUCTURES ARE THE SOLE RESPONSIBILITY OF THE STAMP REDEMPTION CLERK SUBMITTING THE ORIGINAL REPORT (NOT THIS ADDENDUM) Electronically signed by: SUKHJINDER MOONEY MD Addendum Ends Patient Name: PILO CABAN STUDY: CT CARDIAC SCORING; 03/24/2023 10:58 am INDICATION: htn, hyperlipedmia E78.5: Hyperlipidemia R07.89: Chest tightness. COMPARISON: None. ACCESSION NUMBER(S): [id number] ORDERING CLINICIAN: BROOKS CASTRO TECHNIQUE: Using prospective [...] increased >800 Shyanne et al. JCCT 2016 ([email or web address].doi.org/10.1016 /j.[email or web address]) LINK Percentile In general, greater than 75th [...] Calcification can be calcuate using link below https://www.link-nhlbi.org /MESACHDRisk/MesaRiskScore /RiskScore.aspx Dino. JACC 2015 (http://dx.doi.org/10.1016 /j.j acc.2015.08.035) Reading News Agent: Dr. Valerio Morris, Date: 03/24/2023 11:23 am Electronically signed by: SUKHJINDER MOONEY MD Normal [facility] CT Cardiac Scoringon 023 CT Cardiac Scoring Normal [facility] 250 DO Work Phone: Tobacco Screening.on 023 Tobacco use status CPHS b) No [facility] 250 DO Work Phone: [facility] CARDIAC STRESS/REST INJE CTIONon 03-01-2023 [facility] CARDIAC STRESS/REST INJECTION Patient Name: PILO CABAN STUDY: MYOCARDIAL PERFUSION STRESS TEST WITH EXERCISE CONVERTED TO LEXISCAN Performing facility: [facility], [address] [place] [address], [address], [address] Provider: Brooks Castro MD, FACC PCP: Dr. Ellis Tomlin Supervising provider: Haley Osullivan MD, FACC INDICATION: Dyspnea Chest tightness HISTORY: Gender: F; Age: 77 y/o ; Height: 0 cm; Weight: 0 kg. Chest Pain; High Cholesterol; SOB; Denies smoking. COMPARISON: No comparison. ACCESSION NUMBER(S): [id number]; [id number]; [id number] ORDERING CLINICIAN: BROOKS CASTRO TECHNIQUE: ONE DAY [...] Electronically signed by: HALEY OSULLIVAN MD Normal [facility] No Panel Informationon 03-01 Normal -[facility] 250 DO Work Phone: LIPID PROFILEon 02-27-2023 CHOL-HDL RATIO NORM SEE BELOW Normal [facility] Comment on above: Result Comment: 3.3 - 4.4 LOW RISK 4.4 - 7.1 AVERAGE RISK 7.1 - 11.0 MODERATE RISK >11.0 HIGH RISK Performed By: #### L IPID #### [facility] [address] [place], [place] [address] Dr. Krystle Clement Cholesterol [Mass/Vol] 211 mg/dL Critically high <=200 [facility] Comment on above: Performed By: #### L IPID #### [facility] [address] [place], [place] [address] Dr. Krystle Clement Cholesterol in HDL [Mass/Vol] 52 mg/dL Normal 40-60 [facility] Comment on above: Performed By: #### L IPID #### [facility] [address] [place] [address] [address] Krystle Clement Cholesterol in LDL [Mass/Vol] 143.0 mg/dL Normal [facility] Comment on above: Performed By: #### L IPID #### [facility] [address] [place] [address] Dr. Krystle Clement Cholesterol.total/Cho lesterol in HDL [Mass ratio] 4.1 {ratio} Normal [facility] Comment on above: Performed By: #### L IPID #### [facility] [address] [address] [address] Krystle Clement HDL NORMAL > or = 60 mg/dl - LO W CARDIOVASCULAR RISK <40 mg/dl - HIGH CARDIOVASCULAR RISK Normal [facility] Comment on above: Performed By: #### L IPID #### [facility] [address] [place] [address] Dr. Krystle Clement LDL CALC NORMAL SEE BELOW Normal [facility] Comment on above: Result Comment: <100 mg/dl OPTIMAL 100 - 129 mg/dl NEAR OR ABOVE OPTIMAL 130 - 159 mg/dl BORDERLINE HIGH 160 - 189 mg/dl HIGH >190 mg/dl VERY HIGH Performed By: #### L IPID #### [facility] [address] [place] [address] Dr. Krystle Clement Triglyceride [Mass/Vol] 80 mg/dL Normal <=150 [facility] Comment on above: Performed By: #### L IPID #### [facility] [address] [place] [address] Dr. Krystle Clement VLDL CALC 16.0 mg/dL Normal [facility] Comment on above: Performed By: #### L IPID #### [facility] [address] [place] [address] Dr. Krystle Clement Office Visit (Cardiology)on 02-13-2023 [...] Stress/Rest Nuclear Med Order; Status:Hold For - Scheduling,Retrospective Authorization; Requested for:[id number]; Radiologist to Determine Optimal Study : Y What are the patient's signs and symptoms? : dyspnea chest tightness Chest tightness, Dyspnea, Hyperlipidemia Lipid Panel; Status:Active - Retrospective Authorization; Requested for:[id number]; Class 1 obesity with body mass index (BMI) of 30.0 to 30.9 in adult Healthy Weight Tips; Status:Complete - Retrospective Authorization; Done: [id number] Some eating tips that can help you lose weight.; Status:Complete - Retrospective Authorization; Done: [id number] Dyspnea IO EKG Electrocardiogram- 12 Lead; Status:Complete; Done: [id number] SocHx: Never a smoker Tobacco Use Screening; Status:Complete; Done: [id number] Tobacco Use Screening; Status:Complete; Done: [id number] Patient Instructions Please bring all medicines, vitamins, and herbal supplements with you when you come to the office. Prescriptions will not be filled unless you are compliant with your follow up appointments or have a follow up appointment scheduled as per instruction of your physician. Refills should be requested at the time of your visit. Follow up after testing completed Chief Complaint PILO CABAN is being seen for a consultation for. 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 Assessment: 1. 77-year-old with exertional shortness of [...] long hist (more content not included)... Normal [employer] Tobacco Screening.on 023 Adult depression screening assessment No [facility] 250 DO Work Phone: Fall risk assessment a) No falls within the last year [facility] 250 DO Work Phone: Tobacco use status CPHS b) No [facility] 250 DO Work Phone: ECHOCARDIO M/2D COMPLETEon 0 01-16-2023 ECHOCARDIO M/2D COMPLETE Patient: PILO CABAN Exam Date: 01/16/2023 : 1945 Gender:F Ordering : DR KATERINA TOMLIN M.D. Admission #: [id number] Family : Order #: [id number] CLICK HERE TO VIEW EXAM ECHOCARDIOGRAM REPORT [...] Stern M.D. on 01/16/2023 at 14:53 Normal [facility] B-Type Natriuretic Peptideon 01-04-2023 B-Type Natriuretic Peptide see note [facility] Other B-Type Natriuretic Peptide 582.0 pg/ml <=1,800.0 pg/ml [facility] Other BNPon 01-04-2023 Natriuretic peptide B (Bld) [Mass/Vol] 582.0 pg/mL Normal <=1,800.0 [facility] Comment on above: Performed By: #### B ROOFING TECHNICIAN, BMP #### [facility] [address] [place] [address] Dr. Krystle Clement CBC AUTO DIFFon 01-04-2023 BASO # 0.0 103/ul Normal 0.0-0.1 [facility] Comment on above: Performed By: #### C BC #### [facility] [address] [place] [address] Dr. Krystle Clement Basophils/100 WBC (Bld) 0.7 % Normal 0.2-2.0 [facility] Comment on above: Performed By: #### C BC #### [facility] [address] [place] [address] Dr. Krystle Clement EO # 0.4 103/ul Normal 0.0-0.7 [facility] Comment on above: Performed By: #### C BC #### [facility] [address] [place] [address] Dr. Krystle Clement Eosinophils/100 WBC (Bld) 5.7 % Normal 0.9-7.0 [facility] Comment on above: Performed By: #### C BC #### [facility] [address] [place] [address] Dr. Krystle Clement Erythrocyte distribution width (RBC) [Ratio] 12.9 % Normal 11.0-15.0 [facility] Comment on above: Performed By: #### C BC #### [facility] [address] [place] [address] Dr. Krystle Clement Hematocrit (Bld) [Volume fraction] 44.3 % Normal 36.0-48.0 [facility] Comment on above: Performed By: #### C BC #### [facility] [address] [place] [address] Dr. Krystle Clement Hemoglobin (Bld) [Mass/Vol] 15.0 g/dL Normal 12.0-16.0 [facility] Comment on above: Performed By: #### C BC #### [facility] [address] [place] [address] Dr. Krystle Clement IG # 0.02 10e3/ul Normal 0.00-0.03 [facility] Comment on above: Performed By: #### C BC #### [facility] [address] [place] [address] Dr. Krystle Clement IG % 0.3 % Normal 0.0-0.5 [facility] Comment on above: Performed By: #### C BC #### [facility] [address] [place] [address] Dr. Krystle Clement LYMPH # 1.1 103/ul Critically low 1.2-3.8 [facility] Comment on above: Performed By: #### C BC #### [facility] [address] [place] [address] Dr. Krystle Clement Lymphocytes/100 WBC (Bld) 18.1 % Critically low 20.5-60.0 [facility] Comment on above: Performed By: #### C BC #### [facility] [address] [place] [address] Dr. Krystle Clement MANUAL DIFF REQ NO Normal [facility] Comment on above: Performed By: #### C BC #### [facility] [address] [place] [address] Dr. Krystle Clement MCH (RBC) [Entitic mass] 30.9 pg Normal 26.7-34.0 [facility] Comment on above: Performed By: #### C BC #### [facility] [address] [place] [address] Dr. Krystle Clement MCHC (RBC) [Mass/Vol] 33.9 g/dL Normal 29.9-35.2 [facility] Comment on above: Performed By: #### C BC #### [facility] [address] [place] [address] Dr. Krystle Clement MCV (RBC) [Entitic vol] 91.3 fL Normal 81.0-99.0 [facility] Comment on above: Performed By: #### C BC #### [facility] [address] [place] [address] Dr. Krystle Clement MONO # 0.7 103/ul Normal 0.3-0.8 [facility] Comment on above: Performed By: #### C BC #### [facility] [address] [place] [address] Dr. Krystle Clement Monocytes/100 WBC (Bld) 11.7 % Normal 1.7-12.0 [facility] Comment on above: Performed By: #### C BC #### [facility] [address] [place] [address] Dr. Krystle Clement NEUT # 3.9 103/ul Normal 1.4-6.5 [facility] Comment on above: Performed By: #### C BC #### [facility] [address] [place] [address] Dr. Krystle Clement Neutrophils/100 WBC (Bld) 63.5 % Normal 43.0-75.0 [facility] Comment on above: Performed By: #### C BC #### [facility] [address] [place] [address] Dr. Krystle Clement Platelet mean volume (Bld) [Entitic vol] 8.8 fL Critically low 9.5-13.5 [facility] Comment on above: Performed By: #### C BC #### [facility] [address] [place] [address] Dr. Krystle Clement PLT 232 103/ul Normal 150-450 [facility] Comment on above: Performed By: #### C BC #### [facility] [address] [place] [address] Dr. Krystle Clement RBC 4.85 106/ul Normal 4.20-5.40 [facility] Comment on above: Performed By: #### C BC #### [facility] [address] [place] [address] Dr. Krystle Clement WBC 6.1 103/ul Normal 4.0-11.0 [facility] Comment on above: Performed By: #### C BC #### [facility] [address] [place] [address] Dr. Krystle Clement PROF CHEM 8 (BAS METB)on Anion gap [Moles/Vol] 11.6 mmol/L Normal [facility] Comment on above: Performed By: #### B ROOFING TECHNICIAN, BMP #### [facility] [address] [place] [address] Dr. Krystle Clement Calcium [Mass/Vol] 9.5 mg/dL Normal 8.5-10.1 [facility] Comment on above: Performed By: #### B ROOFING TECHNICIAN, BMP #### [facility] [address] [address] [address] Krystle Clement Chloride [Moles/Vol] 110 mmol/L Critically high 98-107 [facility] Comment on above: Performed By: #### B ROOFING TECHNICIAN, BMP #### [facility] [address] [place] [address] Dr. Krystle Clement CO2 [Moles/Vol] 29.7 mmol/L Normal 21.0-32.0 [facility] Comment on above: Performed By: #### B ROOFING TECHNICIAN, BMP #### [facility] [address] [address] [address] Krystle Clement Creatinine [Mass/Vol] 1.11 mg/dL Critically high 0.55-1.02 [facility] Comment on above: Performed By: #### B ROOFING TECHNICIAN, BMP #### [facility] [address] [place] [address] Dr. Krystle Clement EGFR-AF ZIMBABWEAN 58 mL/min/1.73m2 Critically low >=60 [facility] Comment on above: Performed By: #### B ROOFING TECHNICIAN, BMP #### [facility] [address] [address] [address] Krystle Clement EGFR-NON AF ZIMBABWEAN 48 mL/min/1.73m2 Critically low >=60 [facility] Comment on above: Performed By: #### B ROOFING TECHNICIAN, BMP #### [facility] [address] [place] [address] Dr. Krystle Clement Glucose [Mass/Vol] 77 mg/dL Normal 74-106 [facility] Comment on above: Performed By: #### B ROOFING TECHNICIAN, BMP #### [facility] [address] [address] [address] Krystle Clement Potassium [Moles/Vol] 4.3 mmol/L Normal 3.5-5.1 [facility] Comment on above: Performed By: #### B ROOFING TECHNICIAN, BMP #### [facility] [address] [address] [address] Krystle Clement Sodium [Moles/Vol] 147 mmol/L Critically high 136-145 [facility] Comment on above: Performed By: #### B ROOFING TECHNICIAN, BMP #### [facility] [address] [address] [address] Krystle Clement Urea nitrogen [Mass/Vol] 16.0 mg/dL Normal 7.0-18.0 [facility] Comment on above: Performed By: #### B ROOFING TECHNICIAN, BMP #### [facility] [address] [address] [address] Krystle Clement Urea nitrogen/Creatinine [Mass ratio] 14.4 mg/mg Normal [facility] Comment on above: Performed By: #### B ROOFING TECHNICIAN, BMP #### [facility] [address] [address] [address] CHEST WO CONon [...] by: BARBARA CHO Date: 2022-11-03 15:[address] [facility] MAMM SCREEN 3D ITALIA CADon 11-03-2022 MG MAMM SCREEN 3D ITALIA CAD Patient: PILO CABAN Exam Date: 11/03/2022 : 1945 Gender:F Ordering : DR KATERINA TOMLIN M.D. Admission #: [id number] Family : Order #: [id number] CLICK HERE TO VIEW EXAM RADIOLOGY REPORT [...] breast cancer at age 59. LOCATION: [facility] BREAST COMPOSITION: Scattered areas fibroglandular density. FINDINGS: [...] Cho MD on 11/03/2022 at 15:57 Normal [facility] CT CHEST WO CONon 03-10-2022 CT [...] by: YFN SELF Date: 2022-03-10 10:46 Normal [facility] Vital Signs Date Time Vital Sign Value Performing Clinician Facility 12-29-2023 11:03050 Body height 162.56 cm MD Katerina Tomlin Work Phone: [facility] 12-29-2023 11:03050 Body mass index (BMI) [Ratio] 28 kg/m2 MD Katerina Tomlin Work Phone: [facility] 12-29-2023 11:03050 Body weight 74.16 kg MD Katerina Tomlin Work Phone: [facility] 12-29-2023 11:03-050 Diastolic blood pressure 90 mm[Hg] MD Katerina Tomlin Work Phone: [facility] 12-29-2023 11:03-0500 Heart rate 94 /min MD Katerina Tomlin Work Phone: [facility] 12-29-2023 11:03-0500 Systolic blood pressure 139 mm[Hg] MD Katerina Tomlin Work Phone: [facility] 04-07-2023 13:30-0400 Body height 162.56 cm Katerina Tomlin Other [facility] Other 04-07-2023 13:30-0400 Body mass index (BMI) [Ratio] 29.69 kg/m2 Katerina Tomlin Other [facility] Other 04-07-2023 13:30-0400 Body weight 78.47 kg Katerina Tomlin Other [facility] Other 04-07-2023 13:30-0400 Diastolic blood pressure 76 mm[Hg] Katerina Tomlin Other [facility] Other 04-07-2023 13:30-0400 Systolic blood pressure 161 mm[Hg] Katerina Tomlin Other [facility] Other 03-20-2023 16:02-0400 Diastolic blood pressure 82 mm[Hg] Katerina Tomlin [facility] [employer] 250 DO Work Phone: 03-20-2023 16:02-0400 Diastolic blood pressure 80 mm[Hg] Katerina Tomlin Work Phone: [facility] 250 DO Work Phone: 03-20-2023 16:02-0400 Systolic blood pressure 138 mm[Hg] Katerina Tomlin [facility] [employer] 250 DO Work Phone: 03-20-2023 15:32-0400 Body height 160.02 cm Katerina Tomlin Work [facility] [employer] 250 DO Work Phone: 03-20-2023 15:32-0400 Body mass index (BMI) [Ratio] 30.47 kg/m2 Katerina Tomlin Work Phone: [facility] 250 DO Work Phone: 03-20-2023 15:32-0400 Body surface area Derived from formula 1.81 m2 Katerina Tomlin Work Phone: [facility] 250 DO Work Phone: 03-20-2023 15:32-0400 Body weight 78.02 kg Katerina Tomlin Work Phone: [facility] 250 DO Work Phone: 03-20-2023 15:32-0400 Diastolic blood pressure 86 mm[Hg] Katerina Tomlin Work Phone: [facility] 250 DO Work Phone: 03-20-2023 15:32-0400 Heart rate 74 /min Katerina Tomlin Work Phone: [facility] [employer] 250 DO Work Phone: 03-20-2023 15:32-0400 Systolic blood pressure 144 mm[Hg] Katerina Tomlin Work Phone: [facility] 250 DO Work Phone: 02-27-2023 14:47-0400 143 1 Katerina Tomlin Work Phone: [facility] 250 DO Work Phone: Comment on above: [facility] 02-13-2023 09:36-0400 Diastolic blood pressure 70 mm[Hg] Katerina Tomlin Work Phone: [facility] 250 DO Work Phone: 02-13-2023 09:36-0400 Systolic blood pressure 138 mm[Hg] Katerina Tomlin Work Phone: [facility] 250 DO Work Phone: 02-13-2023 09:35-0400 Body height 160.02 cm Katerina Tomlin Work Phone: [facility] 250 DO Work Phone: 02-13-2023 09:35-0400 Body mass index (BMI) [Ratio] 30.65 kg/m2 Katerina Tomlin Work Phone: [facility] 250 DO Work Phone: 02-13-2023 09:35-0400 Body surface area Derived from formula 1.82 m2 Katerina Tomlin Work Phone: [facility] 250 DO Work Phone: 02-13-2023 09:35-0400 Body weight 78.47 kg Katerina Tomlin Work Phone: [facility] 250 DO Work Phone: 02-13-2023 09:35-0400 Diastolic blood pressure 72 mm[Hg] Katerina Tomlin Work Phone: [facility] 250 DO Work Phone: 02-13-2023 09:35-0400 Heart rate 63 /min Katerina Tomlin Work Phone: [facility] 250 DO Work Phone: 02-13-2023 09:35-0400 Systolic blood pressure 130 mm[Hg] Katerina Tomlin Work Phone: [facility] 250 DO Work Phone: 01-02-2023 09:30-0500 Body height 162.56 cm Katerina Tomlin Other [facility] Other 01-02-2023 09:30-0500 Body mass index (BMI) [Ratio] 29.52 kg/m2 Katerina Tomlin Other [facility] Other 01-02-2023 09:30-0500 Body weight 78.02 kg Katerina Tomlin Other [facility] Other 01-02-2023 09:30-0500 Diastolic blood pressure 70 mm[Hg] Katerina Tomlin Other [facility] Other 01-02-2023 09:30-0500 SaO2% (BldA) [Mass fraction] 98 % Katerina Tomlin Other [facility] Other 01-02-2023 09:30-0500 Systolic blood pressure 142 mm[Hg] Katerina Tomlin Other [facility] Other Encounters Encounter Date Encounter Type Care Provider Facility Start: 01-22-2024 End: 01-22-2024 ambulatory [facility] Facility:[facility] Start: 01-22-2024 End: 01-22-2024 ambulatory MD Katerina Tomlin Work Phone: [facility] Work Phone: Start: 01-22-2024 End: 01-22-2024 Departed Referred MD Katerina Tomlin Work Phone: [facility] Start: 01-01-2024 Non-patient / Non-visit MD Bettie Tomlin Work Phone: [facility] Work Phone: Start: 12-29-2023 End: 12-29-2023 Patient encounter procedure MD Katerina Tomlin Work Phone: [facility] Work Phone: Start: 11-28-2023 End: 11-28-2023 ambulatory CHOCO A PETITTI Not Available Start: 10-03-2023 End: 10-03-2023 ambulatory CHOCO A PETITTI Not Available Start: 04-07-2023 End: 04-07-2023 ambulatory Katerina Tomlin Other [facility] Other Start: 04-07-2023 Patient encounter procedure Katerina Tomlin [facility] Start: 03-28-2023 Chart Update Katerina Tomlin Work Phone: [facility] 250 DO Work Phone: Start: 03-24-2023 Chart Update Katerina Tomlin Work Phone: [facility] 250 DO Work Phone: Start: 03-24-2023 ambulatory Brooks Marquez Facility: [id number] Start: 03-02-2023 Chart Update Katerina Tomlin Work Phone: [facility] 250 DO Work Phone: Start: 03-01-2023 ambulatory Brooks Marquez Facility: [id number] Start: 02-27-2023 End: 02-28-2023 ambulatory [facility] Facility:[facility] Start: 02-14-2023 End: 02-14-2023 ambulatory Katerina Tomlin Other [facility] Other Start: 02-14-2023 Telephone encounter Katerina Tomlin [facility] Start: 02-13-2023 Office consultation new/estab patient 60 min Katerina Tomlin Work Phone: [facility] 250 DO Work Phone: Start: 02-13-2023 ambulatory MD BROOKS CASTRO Facilit [id number] Start: 01-18-[address] Katerina Tomlin Facility:[facility] Start: 01-17-2023 End: 01-17-2023 ambulatory Katerina Tomlin Other [facility] Other Start: 01-17-2023 Telephone encounter Katerina Tomlin [facility] Start: 01-16-2023 End: 01-17-[address] KATERINA TOMLIN Facility:H1 Start: 01-05-2023 End: 01-05-2023 ambulatory Katerina Tomlin Other [facility] Other Start: 01-05-2023 Telephone encounter Katerina Tomlin [facility] Start: 01-04-2023 End: 01-05-[address] KATERINA TOMLIN Facility:[facility]1 Start: 01-02-2023 End: 01-02-2023 ambulatory Katerina Tomlin Other [facility] Other Start: 01-02-2023 Office outpatient vi sit 15 minutes Katerina Tomlin [facility] Start: 11-03-2022 End: 11-04-2022 ambulatory DAYANNA LOBO . Facility: Start: 03-10-2022 End: 03-11-2022 ambulatory DAYANNASALEEM LOBO . Facility: Start: 10-17-2018 End: 10-17-2018 Patient encounter procedure EMILY Oleg YIN [facility] Procedures Date Procedure Procedure Detail Performing Clinician Appendectomy Katerina Tomlin Work Phone: section Katerina ochoa Work Phone: Colonoscopy Katerina Tomlin Work Phone: Tonsillectomy and adenoidectomy Katerina Tomlin Work Phone: Plan of Treatment Date Care Activity Detail Author Start: 03-20-2023 FUV, Provider: Brooks Castro, Status: Pen, Time: 3:30 PM FUV, Provider: Brooks Castro, Status: Pen, Time: 3:30 PM [facility] 250 DO Work Phone: Start: 03-01-2023 STRESS NUC, Provider : ARACELI CHERRYI NUCLEAR 01,[id number], Status: Pen, Time: 8:00 AM STRESS NUC, Provider: ARACELI CHERRYI NUCLEAR 01,[id number], Status: Pen, Time: 8:00 AM [facility] 250 DO Work Phone: Immunizations Immunization Date Immunization Notes Care Provider Lucila ferrari 10-25-2021 Pfizer-BioNTech COVI D-19 Vacc 30 MCG/0.3ML Intramuscular Suspension Katerina Tomlin Work Phone: [facility] 250 DO Work Phone: 03-25-2021 Pfizer-BioNTech COVI D-19 Vacc 30 MCG/0.3ML Intramuscular Suspension Katerina Tomlin Work Phone: [facility] 03-01-2021 Pfizer-BioNTech COVI D-19 Vacc 30 MCG/0.3ML Intramuscular Suspension Katerina Tomlin Work Phone: [facility] 10-25-2019 pneumococcal polysaccharide vaccine, 23 valent MD Katerina Tomlin Work Phone: [facility] [facility] 10[facility]2016 influenza virus vacc ine, unspecified formulation MD Katerina Tomlin Work Phone: [facility] 10-06-2016 pneumococcal conjuga te vaccine, 13 valent MD Katerina Tomlin Work Phone: [facility] 04-09-2015 pneumococcal conjuga te vaccine, 13 valmp Tomlin Work Phone: [place] [address] DO Work Phone: 08-31-2008 pneumococcal polysaccharide vaccine, 23 valent Katerina Tomlin Work Phone: [place] [address] DO Work Phone: Payers Date Payer Category Payer Self-pay [id number] 1958 Medicare [id number] 2.1 [id number] 1959 Unknown [id number] 2.16 .[id number] 1946 Unknown [id number] 2.16. 840.1.025113.3.579.2.356 1946 Unknown [id number] 2.16.84 0.1.352615.3.579.2.593 1946 Unknown [id number] 2.16.84 0.1.576291.3.579.2.593 1946 Unknown [id number] 2.16.84 0.1.471918.3.579.2.593 1946 Unknown [id number] 2.16.84 0.1.079281.3.579.2.593 1946 Unknown [id number] 2.16.84 0.1.589575.3.579.2.593 1946 Unknown [id number] 2.16.84 0.1.310702.3.579.2.593 1946 Unknown [id number] 2.16.84 0.1.879599.3.579.2.593 1946 Unknown [id number] 2.16.8 40.1.374039.3.579.2.1068 1946 Unknown [id number] 2.16.8 40.1.729914.3.579.2.1068 1946 Unknown [id number] 2.16.84 0.1.016486.3.579.2.1259 1946 Unknown [id number] 2.16.840 .1.042341.3.579.2.1259 Unknown Unknown [id number] Unknown [id number] 2.16.8 40.1.487321.3.579.2.531 Social History Date Type Detail Facility Unknown if ever smoked [facility] Other Sex Assigned At Sex Assigned At Bir th [facility] Other [facility] ingestion [facility] Work [facility]: Comment on above: couple weekly whiske y; coffee daily; Start: 1945 Sex Assigned At Female F [facility] Evaluation note 04-07-2023 Note Date & Type Note Facility 04-07-2023 Evaluation note Encounter Date Diagnosis Assessment Notes Mar, Inflamed seborrheic keratosis (ICD-10 - L82.0) cryotherapy on lesion [facility] Other Evaluation note 04-07-2023 Note Date & Type Note Facility 04-07-2023 Evaluation note Encounter Date Diagnosis Assessment Notes Mar, Inflamed seborrheic keratosis (ICD-10 - L82.0) cryotherapy on lesion. There is no tick bite. [facility] Other Evaluation note 01-17-2023 Note Date & Type Note Facility 01-17-2023 Evaluation note Encounter Date Diagnosis Assessment Notes Dec, Dyspnea, unspecified (ICD-10 - R06.00) Dec, Other abnormalities of breathing (ICD-10 - R06.89) Dec, Abnormal EKG (ICD-10 - R94.31) [facility] Other Evaluation note 01-02-2023 Note Date & Type Note Facility 01-02-2023 Evaluation note Encounter Date Diagnosis Assessment Notes Dec, Leg edema (ICD-10 - R60.0) Discussed differential including heart failure. Pt would like to get tests to have a cause for her ongoing symptoms. Dec, Dyspnea on exertion (ICD-10 - R06.09) PFT this week. Complete tests as ordered. Pt agrees. [facility] Other Chief complaint Narrative - Reported Note Date & Type Note Facility Chief complaint Narrative - Reported PILO CABAN is being seen for a consultation for. [facility] 250 DO Work Phone: Evaluation note Note Date & Type Note Facility Evaluation note No Information [employer] Other Evaluation note Note Date & Type Note Facility Evaluation note Diagnosis Onset Date Calcified lymph nodes acute Multiple pulmonary nodules a 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 77-year-old with exertional shortness of breath and [...] call if further questions arise,Sincerely,Brooks Castro MD [place] [address] DO Work Phone: Summary Purpose Family History [...] history of malignant neoplasm: Mother(V16.9, Z80.9) Status:Active Relationship Condition Age at Onset Recorded Date/T martin daughter Hypertension Unknown father Unknown Not Specified Unknown Malignant neoplasm Unknown natural son Hypertension Unknown Advance Directives No Advanced Directives Records Found Advance Directive Response Recorded Date/ Time Advance Directives No November 28, 2018 12:00pm Reason for Referral Reason *FU 01/25 Last OV, echo, EKG, labs - c/o dyspnea on exertion and LE edema. Diagnosis 1 Abnormal EKG (R94.31 ) Referral Organization [facility] Referring Provider First Name Katerina Referring Provider Last Name Nabor Referring Provider Specialty Family [facility] Referred Organization [facility] Referred Provider Brandt Ramírez Referred Address [address] [facility] [address] [place] [address] Referred Provider Specialty Cardiology Referral Priority Routine General Notes Bindu Thomas 12:56:01 PM >received today, attachments made, notes locked, and referral faxed Additional Source Comments INFORMATION SOURCE (unrecogn ized section and content) DATE CREATED AUTHOR 10/20/2018 [facility] DATE CREATED AUTHOR AUTHOR'S ORGANIZ ATION 02/13/2023 [facility] DATE CREATED AUTHOR AUTHOR'S ORGANIZ ATION 02/14/2023 [facility] DATE CREATED AUTHOR AUTHOR'S ORGANIZ ATION 03/03/2023 [facility] DATE CREATED AUTHOR AUTHOR'S ORGANIZ ATION 04/07/2023 [facility] DATE CREATED AUTHOR AUTHOR'S ORGANIZ ATION 11/29/2023 [facility] EPIC DATE CREATED AUTHOR AUTHOR'S ORGANIZ ATION 01/26/2024 [facility] REASON FOR VISIT (unrecogniz ed section and content) check uplabscardiac testsPFT Neededpossible tickpossible tick Care Teams (unrecognized sec tion and content) Team Status: Active Member Role Status Dates Katerina Tomlin MD Primary Care Provider Active Team Status: Inactive Member Role Status Dates Katerina Tomlin MD Primary Care Provide r, Attending Provider Active Start: December 29, 2023 End: December 29, 2023 Team Status: Active Member Role Status Dates Katerina Tomlin MD Primary Care Provide r, Attending Provider Active Start: January 01, 2024 Team Status: Inactive Member Role Status Dates Katerina Tomlin MD Primary Care Provider Active Start: January 22, 2024 End: January 22, 2024 Dayanna LARA DO Attending Provider Active Start: January 22, 2024 End: January 22, 2024 Goals (unrecognized section and content) Goals may be documented in a n alternate section FOR RECORDS PERTAINING TO PATIENTS WHO ARE [...] BE BASED ON THE PRIMARY CLINICAL RECORDS. [facility]. provides no warranty or guarantee of the accuracy or completeness of information in this document.
== END 2024-03-04 10:12 | disposition home or self-care (01) ==
LOC: FL 10:12
PROVIDERS: PCP Family Medicine; Visit Provider Internal Medicine
DX: R13.12 Dysphagia, oropharyngeal phase (principal)
CPT/HCPCS: 74220; 76120

== ENCOUNTER 2024-03-13 08:22 | Outpatient (OUT) | payer MEDICARE, OTHER, SELFPAY ==
--- OUTSIDE RECORDS SUMMARY | 2024-03-13 08:27 | XMS_ITS | CCD ---
Author Organization [facility] Care Team Providers Care Graduate Civil Engineer Name Role Phone REYNOLDHAMZAH EMILY D Unavailable Unavailable Katerina Tomlin Unavailable Katerina Tomlin Unavailable Unavailable Unavailable MD BROOKS CASTRO Attending Unavailable Nabor, Dr. Katerina Nina Referring Unav ailable Tomlin, Dr. Katerina Nina Primary Care Unav ailable Tomlin, Dr. Katreina Nina Primary Care Unav ailable MISC, DOCTOR [...] Unavailable MD Katerina Tomlin Primary Care Provider [facility], DO Dayanna Attending Provider [facility], Dayanna Attending Unavailable [facility], Dayanna Admitting Unavailable Katerina Tomlin Primary Care Unavailable Allergies Allergy Classification Reported Allergen(s) Allergy Type Date of Onset Reaction(s) Facility (8 sources) Iodine; Translations: [IODINE] Drug Allergy 11-03-2006 AOF, Unknown [facility] Repository Medications Current Medications Medication Drug Class(es) Dates Sig (Normalized) Sig (Original) [id number] 200 actuat albuterol 0.09 mg/actuat metered dose [...] 25 Refills: 3 Ordered: 13-Feb-2023 Matthew SHARMA [facility] Start : 13-Feb-2023 Active Problems Active Problems [...] 01-22-2024 Differential panel (Body fld) 44 % [facility] Comment on above: The reference interv al and other method performance specifications have not been established for this body fluid. The test result must be integrated into the clinical context for interpretation. Cell Count/Diff, Fluidon Appearance, Fluid Hazy Normal [facility] Comment on above: Order Comment: Body Fluid Source: Other (Name in the Site) Body Fluid Site: RML Result Comment: The reference interval and other method performance specifications have not been established for this body fluid. The test result must be integrated into the clinical context for interpretation. Performed By: #### F LCCDIFF #### [address] Order Comment: Body Fluid Source: Other (Name in the Site) Body Fluid Site: Rul Color, Fluid Straw Normal [facility] Comment on above: Order Comment: Body Fluid Source: Other (Name in the Site) Body Fluid Site: RML Result Comment: The reference interval and other method performance specifications have not been established for this body fluid. The test result must be integrated into the clinical context for interpretation. Performed By: #### F LCCDIFF #### [address] Order Comment: Body Fluid Source: Other (Name in the Site) Body Fluid Site: Rul Color, Fluid Supernatant Straw Normal [facility] Comment on above: Order Comment: Body Fluid Source: Other (Name in the Site) Body Fluid Site: RML Result Comment: The reference interval and other method performance specifications have not been established for this body fluid. The test result must be integrated into the clinical context for interpretation. Performed By: #### F LCCDIFF #### [facility] [address] [place] [address] [place] Order Comment: Body Fluid Source: Other (Name in the Site) Body Fluid Site: Rul Eosinophils, Fluid 2 /100{WBC} Normal 0-3 [facility] Comment on above: Order Comment: Body Fluid Source: Other (Name in the Site) Body Fluid Site: RML Result Comment: PERF ORMED BY: [place] [address] PATHOLOGIST BISCUIT FACTORY WORKER CRISTHIAN REYEZ M.D. Performed By: #### F LCCDIFF #### [address] Order Comment: Body Fluid Source: Other (Name in the Site) Body Fluid Site: Rul Lymphocytes, Fluid 13 % Normal [facility] Comment on above: Order Comment: Body Fluid Source: Other (Name in the Site) Body Fluid Site: RML Result Comment: The reference interval and other method performance specifications have not been established for this body fluid. The test result must be integrated into the clinical context for interpretation. Performed By: #### F LCCDIFF #### [address] Lymphocytes, Fluid 11 % Normal [facility] Comment on above: Order Comment: Body Fluid Source: Other (Name in the Site) Body Fluid Site: Rul Result Comment: The reference interval and other method performance specifications have not been established for this body fluid. The test result must be integrated into the clinical context for interpretation. Performed By: #### F LCCDIFF #### [facility] [address] [place] [address] Monocytes/Macrophages , Fluid 44 % Normal [facility] Comment on above: Order Comment: Body Fluid Source: Other (Name in the Site) Body Fluid Site: RML Result Comment: The reference interval and other method performance specifications have not been established for this body fluid. The test result must be integrated into the clinical context for interpretation. Performed By: #### F LCCDIFF #### [facility] [address] [place] [address] Monocytes/Macrophages , Fluid 45 % Normal [facility] Comment on above: Order Comment: Body Fluid Source: Other (Name in the Site) Body Fluid Site: Rul Result Comment: The reference interval and other method performance specifications have not been established for this body fluid. The test result must be integrated into the clinical context for interpretation. Performed By: #### F LCCDIFF #### [facility] [address] Neutrophil, Fluid 41 % [facility] Comment on above: Order Comment: Body Fluid Source: Other (Name in the Site) Body Fluid Site: RML Result Comment: The reference interval and other method performance specifications have not been established for this body fluid. The test result must be integrated into the clinical context for interpretation. Performed By: #### F LCCDIFF #### [address] Neutrophil, Fluid 42 % [facility] Comment on above: Order Comment: Body Fluid Source: Other (Name in the [facility]) Body Fluid Site: Rul Result Comment: The reference interval and other method performance specifications have not been established for this body fluid. The test result must be integrated into the clinical context for interpretation. Performed By: #### F LCCDIFF #### [facility] [address] [place] [address] RBC, Fluid 2329 [facility] Comment on above: Order Comment: Body Fluid Source: Other (Name in the Site) Body Fluid Site: RML Result Comment: The reference interval and other method performance specifications have not been established for this body fluid. The test result must be integrated into the clinical context for interpretation. Performed By: #### F LCCDIFF #### [facility] [address] [place] [address] RBC, Fluid 2399 [facility] Comment on above: Order Comment: Body Fluid Source: Other (Name in the [facility]) Body Fluid Site: Rul Result Comment: The reference interval and other method performance specifications have not been established for this body fluid. The test result must be integrated into the clinical context for interpretation. Performed By: #### F LCCDIFF #### [facility] [address] [place] [address] TNC, Body Fluid 163 [facility] Comment on above: Order Comment: Body Fluid Source: Other (Name in the Site) Body Fluid Site: RML Result Comment: The reference interval and other method performance specifications have not been established for this body fluid. The test result must be integrated into the clinical context for interpretation. Performed By: #### F LCCDIFF #### [facility] [address] TNC, Body Fluid 352 Normal [facility] Comment on above: Order Comment: Body Fluid Source: Other (Name in the Site) Body Fluid Site: Rul Result Comment: The reference interval and other method performance specifications have not been established for this body fluid. The test result must be integrated into the clinical context for interpretation. Performed By: #### F LCCDIFF #### [facility] [address] Cells Counted Total [#] in B fredy fluidOrdered By: Dayanna Lobo on 01-22-2024 Cells Counted Total (Body fld) [#] 163 mm^3 [facility] Comment on above: The reference interv al and other method performance specifications have not been established for this body fluid. The test result must be integrated into the clinical context for interpretation. Color of Spun Body fluidOrde red By: Dayanna Lobo on 01-22-2024 Color (Spun body fld) Straw [facility] Comment on above: The reference interv al and other method performance specifications have not been established for this body fluid. The test result must be integrated into the clinical context for interpretation. Determination of appearance of body fluidOrdered By: Dayanna Lobo on 01-22-2024 Appearance (Body fld) Hazy [facility] Comment on above: The reference interv al and other method performance specifications have not been established for this body fluid. The test result must be integrated into the clinical context for interpretation. Erythrocytes [#/volume] in B fredy fluid by Automated countOrdered By: Dayanna Lobo on 01-22-2024 RBC Auto (Body fld) [#/Vol] 2329 mm^3 [facility] Comment on above: The reference interv al and other method performance specifications have not been established for this body fluid. The test result must be integrated into the clinical context for interpretation. Evaluation of color of body fluidOrdered By: Dayanna Lobo on 01-22-2024 Color (Body fld) Straw [facility] Comment on above: The reference interv al and other method performance specifications have not been established for this body fluid. The test result must be integrated into the clinical context for interpretation. Alex 01-22-2024 L Specimen: BC Received: 01/23/24 Status: CLAUDIA Req Num: [id number] Spec Type: Cytology Subm Dr: Dayanna Lobo DO Tissues: A BRONWASH (BRONCH) B BRONWASH (R UPPER LOBE) C BRONWASH (R MIDDLE LOBE) Procedures: HE/6, Gross/Micro L4/3, Cyto Prepstain/3, PAPSTN/3 Age/ Patient Sex Location Account Attending Physician Pilo Caban 78/F [facility] [id number] Dayanna Lobo DO SPEC NUM: [id number] RECD: 01/23/24 STATUS: OSCARGuillermo REQ NUM: [id number] MARK: 01/22/24 DR: Dayanna Lobo DO ENTERED: 01/23/[address] [facility] [address]: Tessa,Lab SPEC TYPE: Cytology DEPT: JASON SDYT ENTERED BY: [id number] RECV BY: [id number] ORDERED: HE/6, Gross/Micro L4/3, Cyto Prepstain/3, PAPSTN/3 [...] BC24 Received: 01/23/24 Status: CLAUDIA Carter Num: [id number] Spec Type: Cytology Subm Dr: Dayanna Lobo DO Tissues: A BRONWASH (BRONCH) B BRONWASH (R UPPER LOBE) C BRONWASH (R MIDDLE LOBE) Procedures: HE/6, Gross/Micro L4/3, Cyto Prepstain/3, PAPSTN/3 Patient: Pilo Caban [id number] (Continued) Specimen: [id number] Received: 01/23/24 (Continued) Gross Description (Continued) Signed (signature on file) Nitesh Chambers MD 01/24/24 1406 Specimen: [id number] Received: 01/23/24 Status: CLAUDIA Carter Num: [id number] Spec Type: Cytology Subm Dr: Dayanna Lobo DO Tissues: A BRONWASH (BRONCH) B BRONWASH (R UPPER LOBE) C BRONWASH (R MIDDLE LOBE) Procedures: HE/6, Gross/Micro L4/3, Cyto Prepstain/3, PAPSTN/3 Patient: Pilo Caban [id number] (Continued) Specimen: [id number] Received: 01/23/24 (Continued) Gross Description (Continued) C. Received fresh labeled with the patient's name, date of and R upper lobe lavage is 5 ml rico cloudy unfixed fluid. 1 Thin Prep slides are prepared. 1 cell blocks are prepared. (CC/nh) Specimen: [id number] Received: 01/23/24-1127 Status: CLAUDIA Carter Num: [id number] Spec Type: Cytology Subm Dr: Dayanna Lobo DO Tissues: A BRONWASH (BRONCH) B BRONWASH (R UPPER LOBE) C BRONWASH (R MIDDLE LOBE) Procedures: HE/6, Gross/Micro L4/3, Cyto Prepstain/3, PAPSTN/3 Patient: Pilo Caban [id number] (Continued) Signed (signature on file) Nitesh Chambers MD 01/24/24 1406 Normal [facility] Manual body fluid eosinophil s/100 leukocytesOrdered By: Dayanna Lobo on 01-22-2024 Eosinophils/100 WBC Manual cnt (Body fld) 2 /100{WBC} 0-3 [facility] Manual body fluid lymphocyte s/100 leukocytesOrdered By: Dayanna Lobo on 01-22-2024 Lymphocytes/100 WBC Manual cnt (Body fld) 13 % [facility] Comment on above: The reference interv al and other method performance specifications have not been established for this body fluid. The test result must be integrated into the clinical context for interpretation. Neutrophils/100 WBC Manual c nt (Body fld)Ordered By: Dayanna Lobo on 01-22-2024 Neutrophils/100 WBC (Body fld) 41 % [facility] Comment on above: The reference interv al and other method performance specifications have not been established for this body fluid. The test result must be integrated into the clinical context for interpretation. A. flavus Ab Immune diff Ql (S)on 01-01-2024 Aspergillus flavus Antibody Negative Neg:<1:1 [facility] A. niger IgE Qn (S)on 2023 Aspergillus niger Antibody Negative Neg:<1:1 [facility] Comment on above: Performed at: [employer] [address] [id number] Director: Skylar Ortega MD, Phone: [phone] Performed at: [employer] [id number] Director: Skylar Ortega MD, Phone: [phone] Adenosine monophosphate.cycl ic [Moles/Vol]on 01-01-2024 Cyclic Citrullinated Peptid IgG/IgA 0 units 0-19 [facility] Comment on above: Negative <20 Weak po sitive 20 - 39 Moderate positive 40 - 59 Strong positive >59Performed at: [employer] [address] [id number] Director: García Salcedo PhD, Phone: [phone] Negative <20 Weak po sitive 20 - 39 Moderate positive 40 - 59 Strong positive >59Performed at: [employer] [id number] Director: García Salcedo PhD, Phone: [phone] Atypical perinuclear antineu trophil cytoplasmic antibodies measurementon 01-01-2024 Neutrophil cytoplasmic Ab.perinuclear.atypic al IF (S) [Titer] <1:20 titer Neg:<1:20 [facility] Comment on above: Serum is slightly he molyzedThe atypical pANCA pattern has been observed in asignificant percentage of patients with ulcerative colitis,primary sclerosing cholangitis and autoimmune hepatitis.Performed at: [employer] [id number] Director: Skylar Ortega MD, Phone: [phone] at: [facility] [employer] [id number] Director: García Salcedo PhD, Phone: [phone] Cefuroxime free [Mass/Vol]on 01-01-2024 Anti-Nuclear Antibody Profile Negative Negative [facility] Comment on above: Performed at: [employer] [facility] [address] [id number] Director: García Salcedo PhD, Phone: [phone] Performed at: [employer] [address] [id number] Director: García Salcedo PhD, Phone: [phone] Performed at: [employer] [facility] [address] [id number] Director: García Salcedo PhD, Phone: [phone] Performed at: [employer] [address] [id number] Director: García Salcedo PhD, Phone: [phone] H. capsulatum Ab CF Ql (S)on 01-01-2024 Histoplasma Mycelial Ab (Comp Fix) Negative Neg:<1:2 [facility] Histoplasma Yeast Ab (Comp Fix) Negative Neg:<1:2 [facility] Comment on above: Performed at: [employer] [address] [id number] Director: Skylar Ortega MD, Phone: [phone] Performed at: [employer] [facility] [address] [id number] Director: Skylar Ortega MD, Phone: [phone] Performed at: [facility] [address] [id number] Director: Skylar Ortega MD, Phone: [phone] Laboratory - Hematology and Cell countson 01-01-2024 ESR (Bld) [Velocity] 25 mm/h <=30 [facility] Myeloperoxidase Ab [Units/vo lume] in Serum by Immunoassayon 01-01-2024 Myeloperoxidase Ab IA Qn (S) <0.2 units 0.0-0.9 [facility] No Panel Informationon 12-31 Histoplasma Galactomannan Antigen Negative <0.5 ng/mL [facility] Comment on above: This test was develo ped and its performance characteristicsdetermined by [employer]. It has not been cleared orapproved by the Food and Drug Administration.Performed at: [employer] [place], [place] [id number] Director: Lori Green MD, Phone: [phone] Aspergillus fumigatus Antibody Negative Neg:<1:1 [facility] Blastomyces dermatitidis Antibody Negative Neg:<1:1 [facility] Comment on above: Performed at: - [facility] [address] [id number] Director: Skylar Ortega MD, Phone: [phone] C-Reactive Protein, Quantitative 1.37 mg/dL <=0.50 [facility] Perinuclear ANCA (p-ANCA) Antibody <1:20 titer Neg:<1:20 [facility] Comment on above: Serum is slightly he molyzedThe presence of positive fluorescence exhibiting P-ANCA orC-ANCA patterns alone is not specific for the diagnosis ofWegener's Granulomatosis (WG) or microscopic polyangiitis.Decisions about treatment should not be based solely onANCA IFA results. The International ANCA Group Consensusrecommends follow up testing of positive sera with both CA-3 and MPO-ANCA enzyme immunoassays. As many as 5% serumsamples are positive only by EIA. Ref. AM J Clin Atceul2677;111:507-513. Proteinase 3 Ab [Units/volum e] in Serum by Immunoassayon 01-01-2024 Proteinase 3 Ab IA Qn (S) <0.2 units 0.0-0.9 [facility] SCL-70 extractable nuclear A b IA Qn (S)on 01-01-2024 Scl-70 (Scleroderma) Antibody <0.2 AI 0.0-0.9 [facility] Serum angiotensin converting enzyme (MOJGAN) measurementon 01-01-2024 Angiotensin converting enzyme [Catalytic activity/Vol] 63 U/L 1482 [facility] Comment on above: Performed at: [employer] [place], [place] [id number] Director: García Salcedo PhD, Phone: [phone] Serum classic neutrophil cyt oplasmic antibody titer by immunofluorescenceon 01-01-2024 Neutrophil cytoplasmic Ab.classic IF (S) [Titer] <1:20 titer Neg:<1:20 [facility] Comment on above: Serum is slightly he molyzed Serum or plasma rheumatoid f actor measurement (units/volume)on 01-01-2024 Rheumatoid factor Qn 10.3 [IU]/mL <14.0 [facility] Comment on above: Performed at: [employer] [place], [place] [id number] Director: García Salcedo PhD, Phone: [phone] CT CARDIAC SCORINGon 023 CT CARDIAC SCORING [...] STRUCTURES ARE THE SOLE RESPONSIBILITY OF THE BICYCLE ASSEMBLER SUBMITTING THE ORIGINAL REPORT (NOT THIS ADDENDUM) Electronically signed by: SUKHJINDER MOONEY MD Addendum Ends Patient Name: PILO CABAN STUDY: CT CARDIAC SCORING; 03/24/2023 10:58 am INDICATION: htn, hyperlipedmia E78.5: Hyperlipidemia R07.89: Chest tightness. COMPARISON: None. ACCESSION NUMBER(S): [id number] ORDERING CLINICIAN: BROOKS CASTRO TECHNIQUE: Using prospective [...] Dino. JACC 2015 (http://dx.doi.org/10.1016 /j.j acc.2015.08.035) Reading Superintendent Radio Communications: Dr. Valerio Morris, Date: 03/24/2023 11:23 am Electronically signed by: SUKHJINDER MOONEY MD Normal [facility] CT Cardiac Scoringon 023 CT Cardiac Scoring Normal [facility] 250 DO Work Phone: Tobacco Screening.on 023 Tobacco use status [facility] b) No [facility] 250 DO Work Phone: [facility] CARDIAC STRESS/REST INJE CTIONon 03-01-2023 [facility] CARDIAC STRESS/REST INJECTION Patient Name: PILO CABAN STUDY: MYOCARDIAL PERFUSION STRESS TEST WITH EXERCISE CONVERTED TO LEXISCAN Performing facility: [facility], [address] [place] [address], [address], [address] Provider: Brooks Castro MD, FACC PCP: Dr. Ellis Tomlin Supervising provider: Haley Osullivan MD, FACC INDICATION: Dyspnea Chest tightness HISTORY: Gender: F; Age: 77 y/o ; Height: 0 cm; Weight: 0 kg. Chest Pain; High Cholesterol; SOB; Denies smoking. COMPARISON: No comparison. ACCESSION NUMBER(S): [id number]; [id number]; [id number] ORDERING CLINICIAN: BROOKS CASTRO TECHNIQUE: ONE DAY [...] Electronically signed by: HALEY OSULLIVAN MD Normal [facility] No Panel Informationon 03-01 Normal -[facility] 250 DO Work Phone: LIPID PROFILEon 02-27-2023 CHOL-HDL RATIO NORM SEE BELOW Normal [facility] Comment on above: Result Comment: 3.3 - 4.4 LOW RISK 4.4 - 7.1 AVERAGE RISK 7.1 - 11.0 MODERATE RISK >11.0 HIGH RISK Performed By: #### L IPID #### [facility] [address] [place], [place] [address] Dr. Krystle Clement Cholesterol [Mass/Vol] 211 mg/dL Critically high <=[address] [facility] Comment on above: Performed By: #### L IPID #### [facility] [address] [place], [place] [address] Dr. Krystle Clement Cholesterol in HDL [Mass/Vol] 52 mg/dL Normal 40-[address] [facility] Comment on above: Performed By: #### L IPID #### [facility] [address] [place] [address] [address] Krystle Clement Cholesterol in LDL [Mass/Vol] 143.0 mg/dL Normal [facility] Comment on above: Performed By: #### L IPID #### [facility] [address] [place] [address] Dr. Krystle Clement Cholesterol.total/Cho lesterol in HDL [Mass ratio] 4.1 {ratio} Normal [facility] Comment on above: Performed By: #### L IPID #### [facility] [address] [place] [address] [address] Krystle Clement HDL NORMAL > or = 60 mg/dl - LO W CARDIOVASCULAR RISK <40 mg/dl - HIGH CARDIOVASCULAR RISK Normal [facility] Comment on above: Performed By: #### L IPID #### [facility] [address] [place] [address] Dr. Krystle Clement LDL CALC NORMAL SEE BELOW Normal [facility] Comment on above: Result Comment: <100 mg/dl OPTIMAL 100 - 129 mg/dl NEAR OR ABOVE OPTIMAL 130 - 159 mg/dl BORDERLINE HIGH 160 - 189 mg/dl HIGH >190 mg/dl VERY HIGH Performed By: #### L IPID #### [facility] [address] [place] [address] Dr. Krystle Clement Triglyceride [Mass/Vol] 80 mg/dL Normal <=[address] [facility] Comment on above: Performed By: #### L IPID #### [facility] [address] [place] [address] Dr. Krystle Clement VLDL CALC 16.0 mg/dL Normal [facility] Comment on above: Performed By: #### L IPID #### [facility] [address] [place] [address] Dr. Krystle Clement Office Visit (Cardiology)on 02-13-2023 [...] Order; Status:Hold For - Scheduling,Retrospective Authorization; Requested for:[id number]; Radiologist to Determine Optimal Study : Y What are the patient's signs and symptoms? : dyspnea chest tightness Chest tightness, Dyspnea, Hyperlipidemia Lipid Panel; Status:Active - Retrospective Authorization; Requested for:[id number]; Class 1 obesity with body mass index (BMI) of 30.0 to 30.9 in adult Healthy Weight Tips; Status:Complete - Retrospective Authorization; Done: [id number] Some eating tips that can help you lose weight.; Status:Complete - Retrospective Authorization; Done: [id number] Dyspnea IO EKG Electrocardiogram- 12 Lead; Status:Complete; Done: [id number] SocHx: Never a smoker Tobacco Use Screening; Status:Complete; Done: [id number] Tobacco Use Screening; Status:Complete; Done: [id number] Patient Instructions Please bring all medicines, vitamins, [...] times, but not consistently, and that the psychiatric registered nurse felt that her shortness of breath is [...] echocardiogram that was done on 01/16/2023 at [facility]. Assessment: 1. 77-year-old with exertional shortness [...] long hist (more content not included)... Normal [facility] Tobacco Screening.on 023 Adult depression screening assessment No [facility] 250 DO Work Phone: Fall risk assessment a) No falls within the last year [facility] 250 DO Work Phone: Tobacco use status [facility] b) No [facility] 250 DO Work Phone: ECHOCARDIO M/2D COMPLETEon 0 01-16-2023 ECHOCARDIO M/2D COMPLETE Patient: PILO CABAN Exam Date: 01/16/2023 : 1945 Gender:F Ordering : DR KATERINA TOMLIN M.D. Admission #: [id number] Family : Order #: [id number] CLICK HERE TO VIEW EXAM ECHOCARDIOGRAM REPORT [...] Stern M.D. on 01/16/2023 at 14:[address] [facility] B-Type Natriuretic Peptideon 01-04-2023 B-Type Natriuretic Peptide see note [employer] Other B-Type Natriuretic Peptide 582.0 pg/ml <=1,800.0 pg/ml [facility] Other BNPon 01-04-2023 Natriuretic peptide B (Bld) [Mass/Vol] 582.0 pg/mL Normal <=1,800.0 [facility] Comment on above: Performed By: #### B MEDICATION NURSE, BMP #### [facility] [address] [place] [address] Dr. Krystle Clement CBC AUTO DIFFon 01-04-2023 BASO # 0.0 103/ul Normal 0.0-0.[address] [facility] Comment on above: Performed By: #### C BC #### [facility] [address] [place] [address] Dr. Krystle Clement Basophils/100 WBC (Bld) 0.7 % Normal 0.2-2.[address] [facility] Comment on above: Performed By: #### C BC #### [facility] [address] [place] [address] Dr. Krystle Clement EO # 0.4 103/ul Normal 0.0-0.[address] [facility] Comment on above: Performed By: #### C BC #### [facility] [address] [place] [address] Dr. Krystle Clement Eosinophils/100 WBC (Bld) 5.7 % Normal 0.9-7.[address] [facility] Comment on above: Performed By: #### C BC #### [facility] [address] [place] [address] Dr. Krystle Clement Erythrocyte distribution width (RBC) [Ratio] 12.9 % Normal 11.0-15.[address] [facility] Comment on above: Performed By: #### C BC #### [facility] [address] [place] [address] Dr. Krystle Clement Hematocrit (Bld) [Volume fraction] 44.3 % Normal 36.0-48.[address] [facility] Comment on above: Performed By: #### C BC #### [facility] [address] [place] [address] Dr. Krystle Clement Hemoglobin (Bld) [Mass/Vol] 15.0 g/dL Normal 12.0-16.[address] [facility] Comment on above: Performed By: #### C BC #### [facility] [address] [place] [address] Dr. Krystle Clement IG # 0.02 10e3/ul Normal 0.00-0.[address] [facility] Comment on above: Performed By: #### C BC #### [facility] [address] [place] [address] Dr. Krystle Clement IG % 0.3 % Normal 0.0-0.[address] [facility] Comment on above: Performed By: #### C BC #### [facility] [address] [place] [address] Dr. Krystle Clement LYMPH # 1.1 103/ul Critically low 1.2-3.8 [facility] Comment on above: Performed By: #### C BC #### [facility] [address] [place] [address] Dr. Krystle Clement Lymphocytes/100 WBC (Bld) 18.1 % Critically low 20.5-60.[address] [facility] Comment on above: Performed By: #### C BC #### [facility] [address] [place] [address] Dr. Krystle Clement MANUAL DIFF REQ NO Normal [facility] Comment on above: Performed By: #### C BC #### [facility] [address] [place] [address] Dr. Krystle Clement MCH (RBC) [Entitic mass] 30.9 pg Normal 26.7-34.[address] [facility] Comment on above: Performed By: #### C BC #### [facility] [address] [place] [address] Dr. Krystle Clement MCHC (RBC) [Mass/Vol] 33.9 g/dL Normal 29.9-35.[address] [facility] Comment on above: Performed By: #### C BC #### [facility] [address] [place] [address] Dr. Krystle Clement MCV (RBC) [Entitic vol] 91.3 fL Normal 81.0-99.[address] [facility] Comment on above: Performed By: #### C BC #### [facility] [address] [place] [address] Dr. Krystle Clement MONO # 0.7 103/ul Normal 0.3-0.8 [facility] Comment on above: Performed By: #### C BC #### [facility] [address] [place] [address] Dr. Krystle Clement Monocytes/100 WBC (Bld) 11.7 % Normal 1.7-12.0 [facility] Comment on above: Performed By: #### C BC #### [facility] [address] [place] [address] Dr. Krystle Clement NEUT # 3.9 103/ul Normal 1.4-6.5 [facility] Comment on above: Performed By: #### C BC #### [facility] [address] [place] [address] Dr. Krystle Clement Neutrophils/100 WBC (Bld) 63.5 % Normal 43.0-75.0 [facility] Comment on above: Performed By: #### C BC #### [facility] [address] [place] [address] Dr. Krystle Clement Platelet mean volume (Bld) [Entitic vol] 8.8 fL Critically low 9.5-13.5 [facility] Comment on above: Performed By: #### C BC #### [facility] [address] [place] [address] Dr. Krystle Clement PLT 232 103/ul Normal 150-450 [facility] Comment on above: Performed By: #### C BC #### [facility] [address] [place] [address] Dr. Krystle Clement RBC 4.85 106/ul Normal 4.20-5.40 [facility] Comment on above: Performed By: #### C BC #### [facility] [address] [place] [address] Dr. Krystle Clement WBC 6.1 103/ul Normal 4.0-11.0 [facility] Comment on above: Performed By: #### C BC #### [facility] [address] [place] [address] Dr. Krystle Clement PROF CHEM 8 (BAS METB)on Anion gap [Moles/Vol] 11.6 mmol/L Normal Th [facility] Comment on above: Performed By: #### B MEDICATION NURSE, BMP #### [facility] [address] [place] [address] Dr. Krystle Clement Calcium [Mass/Vol] 9.5 mg/dL Normal 8.5-10.1 [facility] Comment on above: Performed By: #### B MEDICATION NURSE, BMP #### [facility] [address] [address] [address] Krystle Clement Chloride [Moles/Vol] 110 mmol/L Critically high 98-[address] [facility] Comment on above: Performed By: #### B MEDICATION NURSE, BMP #### [facility] [address] [place] [address] Dr. Krystle Clement CO2 [Moles/Vol] 29.7 mmol/L Normal 21.0-32.0 [facility] Comment on above: Performed By: #### B MEDICATION NURSE, BMP #### [facility] [address] [address] [address] Krystle Clement Creatinine [Mass/Vol] 1.11 mg/dL Critically high 0.55-1.[address] [facility] Comment on above: Performed By: #### B MEDICATION NURSE, BMP #### [facility] [address] [place] [address] Dr. Krystle Clement EGFR-AF [facility] 58 mL/min/1.73m2 Critically low >=60 [facility] Comment on above: Performed By: #### B MEDICATION NURSE, BMP #### [facility] [address] [address] [address] Krystle Clement EGFR-NON AF [facility] 48 mL/min/1.73m2 Critically low >=[address] [facility] Comment on above: Performed By: #### B MEDICATION NURSE, BMP #### [facility] [address] [place] [address] Dr. Krystle Clement Glucose [Mass/Vol] 77 mg/dL Normal 74-106 [facility] Comment on above: Performed By: #### B MEDICATION NURSE, BMP #### [facility] [address] [address] [address] Krystle Clement Potassium [Moles/Vol] 4.3 mmol/L Normal 3.5-5.[address] [facility] Comment on above: Performed By: #### B MEDICATION NURSE, BMP #### [facility] [address] [address] [address] Krystle Clement Sodium [Moles/Vol] 147 mmol/L Critically high 136-145 [facility] Comment on above: Performed By: #### B MEDICATION NURSE, BMP #### [facility] [address] [address] [address] Krystle Clement Urea nitrogen [Mass/Vol] 16.0 mg/dL Normal 7.0-18.[address] [facility] Comment on above: Performed By: #### B MEDICATION NURSE, BMP #### [facility] [address] [address] [address] Krystle Clement Urea nitrogen/Creatinine [Mass ratio] 14.4 mg/mg Normal [facility] Comment on above: Performed By: #### B MEDICATION NURSE, BMP #### [facility] [address] CHEST WO CONon [...] by: BARBARA CHO Date: 2022-11-03 15:55 Normal [facility] MAMM SCREEN 3D ITALIA CADon 11-03-2022 MG MAMM SCREEN 3D ITALIA CAD Patient: PILO CABAN Exam Date: 11/03/2022 : 1945 Gender:F Ordering : DR KATERINA TOMLIN M.D. Admission #: [id number] Family : Order #: [id number] CLICK HERE TO VIEW EXAM RADIOLOGY REPORT [...] breast cancer at age 59. LOCATION: [facility] BREAST COMPOSITION: Scattered areas fibroglandular density. [...] Cho MD on 11/03/2022 at 15:[address] [facility] CT CHEST WO CONon 03-10-2022 CT CHEST [...] by: YFN SELF Date: 2022-03-10 10:[address] [facility] Vital Signs Date Time Vital Sign Value Performing Clinician Facility 12-29-2023 11:03050 Body height 162.56 cm MD Katerina Tomlin Work Phone: [facility] 12-29-2023 11:03050 Body mass index (BMI) [Ratio] 28 kg/m2 MD Katerina Tomlin Work Phone: [facility] 12-29-2023 11:03050 Body weight 74.16 kg MD Katerina Tomlin Work Phone: [facility] 12-29-2023 11:03-050 Diastolic blood pressure 90 mm[Hg] MD Katerian Tomlin Work Phone: [facility] 12-29-2023 11:03-0500 Heart rate 94 /min MD Katerina Tomlin Work Phone: [facility] 12-29-2023 11:03-0500 Systolic blood pressure 139 mm[Hg] MD Katerina Tomlin Work Phone: [facility] 04-07-2023 13:30-0400 Body height 162.56 cm Katerina Tomlin Other [facility] [employer] Other 04-07-2023 13:30-0400 Body mass index (BMI) [Ratio] 29.69 kg/m2 Katerina Tomlin Other [facility] [employer] Other 04-07-2023 13:30-0400 Body weight 78.47 kg Katerina Tomlin Other [facility] [employer] Other 04-07-2023 13:30-0400 Diastolic blood pressure 76 mm[Hg] Katerina Tomlin Other [facility] [employer] Other 04-07-2023 13:30-0400 Systolic blood pressure 161 mm[Hg] Katerina Tomlin Other [facility] [employer] Other 03-20-2023 16:02-0400 Diastolic blood pressure 82 mm[Hg] Katerina Tomlin [facility] Phone: [facility] [employer] 250 DO Work Phone: 03-20-2023 16:02-0400 Diastolic blood pressure 80 mm[Hg] Katerina Tomlin Work Phone: [employer] 250 DO Work Phone: 03-20-2023 16:02-0400 Systolic blood pressure 138 mm[Hg] Katerina Tomlin Work Phone: [facility] [employer] 250 DO Work Phone: 03-20-2023 15:32-0400 Body height 160.02 cm Katerina Tomlin Work Phone: [facility] [employer] 250 DO Work Phone: 03-20-2023 15:32-0400 Body mass index (BMI) [Ratio] 30.47 kg/m2 Katerina Tomlin Work Phone: [facility] 250 DO Work Phone: 03-20-2023 15:32-0400 Body surface area Derived from formula 1.81 m2 Katerina Tomlin Work Phone: [facility] 250 DO Work Phone: 03-20-2023 15:32-0400 Body weight 78.02 kg Katerina Tomlin Work Phone: [facility] 250 DO Work Phone: 03-20-2023 15:32-0400 Diastolic blood pressure 86 mm[Hg] Katerina Tomlin Work Phone: [facility] 250 DO Work Phone: 03-20-2023 15:32-0400 Heart rate 74 /min Katerina Tomlin Work Phone: [facility] [employer] 250 DO Work Phone: 03-20-2023 15:32-0400 Systolic blood pressure 144 mm[Hg] Katerina Tomlin Work Phone: [facility] 250 DO Work Phone: 02-27-2023 14:47-0400 143 1 Katerina Tomlin Work Phone: [facility] 250 DO Work Phone: Comment on above: [employer] 02-13-2023 09:36-0400 Diastolic blood pressure 70 mm[Hg] Katerina Tomlin Work Phone: [facility] 250 DO Work Phone: 02-13-2023 09:36-0400 Systolic blood pressure 138 mm[Hg] Katerina Tomlin Work Phone: [facility] 250 DO Work Phone: 02-13-2023 09:35-0400 Body height 160.02 cm Katerina Tomlin Work Phone: [facility] 250 DO Work Phone: 02-13-2023 09:35-0400 Body mass index (BMI) [Ratio] 30.65 kg/m2 Katerina Tomlin Work Phone: [facility] 250 DO Work Phone: 02-13-2023 09:35-0400 Body surface area Derived from formula 1.82 m2 Katerina Tomlin Work Phone: [facility] 250 DO Work Phone: 02-13-2023 09:35-0400 Body weight 78.47 kg Katerina Tomlin Work Phone: [facility] 250 DO Work Phone: 02-13-2023 09:35-0400 Diastolic blood pressure 72 mm[Hg] Katerina Tomlin Work Phone: [facility] 250 DO Work Phone: 02-13-2023 09:35-0400 Heart rate 63 /min Katerina Tomlin Work Phone: [facility] 250 DO Work Phone: 02-13-2023 09:35-0400 Systolic blood pressure 130 mm[Hg] Katerina Tomlin Work Phone: [facility] 250 DO Work Phone: 01-02-2023 09:30-0500 Body height 162.56 cm Katerina Tomlin Other [facility] [employer] Other 01-02-2023 09:30-0500 Body mass index (BMI) [Ratio] 29.52 kg/m2 Katerina Tomlin Other [facility] [employer] Other 01-02-2023 09:30-0500 Body weight 78.02 kg Katerina Tomlin Other [employer] Other 01-02-2023 09:30-0500 Diastolic blood pressure 70 mm[Hg] Katerina Tomlin Other [employer] Other 01-02-2023 09:30-0500 SaO2% (BldA) [Mass fraction] 98 % Katerina Tomlin Other [employer] Other 01-02-2023 09:30-0500 Systolic blood pressure 142 mm[Hg] Katerina Tomlin Other [employer] Other Encounters Encounter Date Encounter Type Care Provider Facility Start: 01-22-2024 End: 01-22-2024 ambulatory [facility] Facility:[facility] Start: 01-22-2024 End: 01-22-2024 ambulatory MD Katerina Tomlin Work Phone: [facility] Work Phone: Start: 01-22-2024 End: 01-22-2024 Departed Referred MD Katerina Tomlin Work Phone: [facility] Start: 01-01-2024 Non-patient / Non-visit MD Bettie Tomlin Work Phone: [facility] Physician [facility] Work Phone: Start: 12-29-2023 End: 12-29-2023 Patient encounter procedure MD Katerina Tomlin Work Phone: [facility] Physician [facility] Work Phone: Start: 11-28-2023 End: 11-28-2023 ambulatory CHOCO A PETITTI Not Available Start: 10-03-2023 End: 10-03-2023 ambulatory CHOCO A PETITTI Not Available Start: 04-07-2023 End: 04-07-2023 ambulatory Katerina Tomlin Other [employer] Other Start: 04-07-2023 Patient encounter procedure Katerina Tomlin [facility] Start: 03-28-2023 Chart Update Katerina Tomlin Work Phone: [facility] 250 DO Work Phone: Start: 03-24-2023 Chart Update Katerina Tomlin Work Phone: [facility] 250 DO Work Phone: Start: 03-24-2023 ambulatory Brooks Marquez Facility: [id number] Start: 03-02-2023 Chart Update Katerina Tomlin Work Phone: [facility] 250 DO Work Phone: Start: 03-01-2023 ambulatory Brooks Marquez Facility: [id number] Start: 02-27-2023 End: 02-28-2023 ambulatory [facility] Facility:H1 Start: 02-14-2023 End: 02-14-2023 ambulatory Katerina Tomlin Other [employer] Other Start: 02-14-2023 Telephone encounter Katerina Tomlin [facility] Start: 02-13-2023 Office consultation new/estab patient 60 min Katerina Tomlin Work Phone: [facility] 250 DO Work Phone: Start: 02-13-2023 ambulatory MD BROOKS CASTRO Facilit [id number] Start: 01-18-[address] Katerina Tomlin Facility:[facility] Start: 01-17-2023 End: 01-17-2023 ambulatory Katerina Tomlin Other [employer] Other Start: 01-17-2023 Telephone encounter Katerina Tomlin [facility] Start: 01-16-2023 End: 01-17-[address] KATERINA TOMLIN Facility:H1 Start: 01-05-2023 End: 01-05-2023 ambulatory Katerina Tomlin Other [employer] Other Start: 01-05-2023 Telephone encounter Katerina Tomlin [facility] Start: 01-04-2023 End: 01-05-[address] KATERINA TOMLIN Facility:H1 Start: 01-02-2023 End: 01-02-2023 ambulatory Katerina Tomlin Other [employer] Other Start: 01-02-2023 Office outpatient vi sit 15 minutes Katerina Tomlin [facility] Start: 11-03-2022 End: 11-04-2022 ambulatory DAYANNA LOBO . Facility: Start: 03-10-2022 End: 03-11-2022 ambulatory DAYANNASALEEM LOBO . Facility: Start: 10-17-2018 End: 10-17-2018 Patient encounter procedure EMILY Oleg YIN [facility] Procedures Date Procedure Procedure Detail Performing Clinician Appendectomy Katerina Tomlin Work Phone: section Katerina ochoa Work Phone: Colonoscopy Katerina Tomlin Work Phone: Tonsillectomy and adenoidectomy Katerina Tomlin Work Phone: Plan of Treatment Date Care Activity Detail Author Start: 03-20-2023 FUV, Provider: Brooks Castro, Status: Pen, Time: 3:30 PM FUV, Provider: Brooks Castro, Status: Pen, Time: 3:[address] [facility] 250 DO Work Phone: Start: 03-01-2023 STRESS NUC, Provider : ARACELI CHERRYI NUCLEAR 01,[id number], Status: Pen, Time: 8:00 AM STRESS NUC, Provider: ARACELI CHERRYI NUCLEAR 01,[id number], Status: Pen, Time: 8:[address] [facility] 250 DO Work Phone: Immunizations Immunization Date Immunization Notes Care Provider Lucila ferrari 10-25-2021 Pfizer-BioNTech COVI D-19 Vacc 30 MCG/0.3ML Intramuscular Suspension Katerina Tomlin Work Phone: [facility] 250 DO Work Phone: 03-25-2021 Pfizer-BioNTech COVI D-19 Vacc 30 MCG/0.3ML Intramuscular Suspension Katerina Tomlin Work Phone: [facility] 03-01-2021 Pfizer-BioNTech COVI D-19 Vacc 30 MCG/0.3ML Intramuscular Suspension Katerina Tomlin Work Phone: [facility] 10-25-2019 pneumococcal polysaccharide vaccine, 23 valent MD Katerina Tomlin Work Phone: [facility] 10-08-2016 influenza virus vacc ine, unspecified formulation MD Katerina Tomlin Work Phone: [facility] 10-06-2016 pneumococcal conjuga te vaccine, 13 valent MD Katerina Tomlin Work Phone: [facility] 04-09-2015 pneumococcal conjuga te vaccine, 13 valmp Tomlin Work Phone: [place] [address] DO Work Phone: 08-31-2008 pneumococcal polysaccharide vaccine, 23 valent Katerina Tomlin Work Phone: [place] [address] DO Work Phone: Payers Date Payer Category Payer Self-pay [id number] 1958 Medicare [id number] 2.1 [id number] 1958 Unknown [id number] 2.16 .[id number] 1945 Unknown [id number] 2.16. [id number] 1945 Unknown [id number] 2.16.84 0.1.628076.3.579.2.593 1945 Unknown [id number] 2.16.84 0.1.988599.3.579.2.593 1945 Unknown [id number] 2.16.84 0.1.334469.3.579.2.593 1945 Unknown [id number] 2.16.84 0.1.916796.3.579.2.593 1945 Unknown [id number] 2.16.84 0.1.714662.3.579.2.593 1945 Unknown [id number] 2.16.84 0.1.498688.3.579.2.593 1945 Unknown [id number] 2.16.84 0.1.018436.3.579.2.593 1945 Unknown [id number] 2.16.8 40.1.416000.3.579.2.1068 1945 Unknown [id number] 2.16.8 40.1.962350.3.579.2.1068 1945 Unknown [id number] 2.16.84 0.1.061692.3.579.2.1259 1945 Unknown [id number] 2.16.840 .1.759504.3.579.2.1259 Unknown Unknown [id number] Unknown [id number] 2.16.8 [id number] Social History Date Type Detail Facility Unknown if ever smoked [employer] Other Sex Assigned At Sex Assigned At Bir th [facility] Other [facility] ingestion [facility] Work Phone: Comment on above: couple weekly whiske y; coffee daily; Start: 1945 Sex Assigned At Female F [facility] Evaluation note 04-07-2023 Note Date & Type Note Facility 04-07-2023 Evaluation note Encounter Date Diagnosis Assessment Notes Mar, Inflamed seborrheic keratosis (ICD-10 - L82.0) cryotherapy on lesion [facility] Other Evaluation note 04-07-2023 Note Date & Type Note Facility 04-07-2023 Evaluation note Encounter Date Diagnosis Assessment Notes Mar, Inflamed seborrheic keratosis (ICD-10 - L82.0) cryotherapy on lesion. There is no tick bite. [employer] Other Evaluation note 01-17-2023 Note Date & Type Note Facility 01-17-2023 Evaluation note Encounter Date Diagnosis Assessment Notes Dec, Dyspnea, unspecified (ICD-10 - R06.00) Dec, Other abnormalities of breathing (ICD-10 - R06.89) Dec, Abnormal EKG (ICD-10 - R94.31) [facility] Other Evaluation note 01-02-2023 Note Date & Type Note Facility 01-02-2023 Evaluation note Encounter Date Diagnosis Assessment Notes Dec, Leg edema (ICD-10 - R60.0) Discussed differential including heart failure. Pt would like to get tests to have a cause for her ongoing symptoms. Dec, Dyspnea on exertion (ICD-10 - R06.09) PFT this week. Complete tests as ordered. Pt agrees. [employer] Other Chief complaint Narrative - Reported Note Date & Type Note Facility Chief complaint Narrative - Reported PILO CABAN is being seen for a consultation for. [facility] 250 DO Work Phone: Evaluation note Note Date & Type Note Facility Evaluation note No Information I Do Venues Other Evaluation note Note Date & Type Note Facility Evaluation note Diagnosis Onset Date Calcified lymph nodes acute Multiple pulmonary nodules a [facility] Work Phone: History general Narrative - [...] History T&A Hospitalization History SEE SURGICAL HX [employer] Other History of Present illness Narrative Note [...] times, but not consistently, and that the psychiatric registered nurse felt that her shortness of breath is [...] echocardiogram that was done on 01/16/2023 at [facility].Assessment:1. 77-year-old with exertional shortness of breath [...] call if further questions arise,Sincerely,Brooks Castro MD [place] [id number] DO Work Phone: Summary Purpose Family History [...] Abnormal EKG (R94.31 ) Referral Organization [facility]illy Referring Provider First Name Katerina Referring Provider Last Name Nabor Referring Provider Specialty Family [facility] Referred Organization [facility] enter Referred Provider Brandt Ramírez Referred Address [address] [facility] [address] [place] [id number] Referred Provider Specialty Cardiology Referral Priority Routine General Notes Bindu Thomas 12:56:01 PM >received today, attachments made, notes locked, and referral faxed Additional Source Comments INFORMATION SOURCE (unrecogn ized section and content) DATE CREATED AUTHOR 10/20/2018 [facility] DATE CREATED AUTHOR AUTHOR'S ORGANIZ ATION 02/13/2023 [facility] DATE CREATED AUTHOR AUTHOR'S ORGANIZ ATION 02/14/2023 [employer] DATE CREATED AUTHOR AUTHOR'S ORGANIZ ATION 03/03/2023 [facility] DATE CREATED AUTHOR AUTHOR'S ORGANIZ ATION 04/07/2023 [facility] DATE CREATED AUTHOR AUTHOR'S ORGANIZ ATION 11/29/2023 [facility] EPIC DATE CREATED AUTHOR AUTHOR'S ORGANIZ ATION 01/26/2024 [facility] REASON FOR VISIT (unrecogniz ed section and [...] BE BASED ON THE PRIMARY CLINICAL RECORDS. [facility] [employer] [facility]. provides no warranty or guarantee of the accuracy or completeness of information in this document.
--- NOTE | 2024-03-13 08:35 | MM_ITS ---
Patient Name: PILO GREGORY MR#: [id number] : 1945 Exam Date: 03/13/2024 Ordering Doctor: DR Katerina Mortensen M.D. RADIOLOGY REPORT PROCEDURE: MM TOMOSYNTHESIS SCREENING BI COMPARISON: MG MAMM SCREEN 3D [place] CAD, 10/04/2021. MG MAMM SCREEN 3D [place] CAD, 11/03/2022. INDICATIONS: Screening Calculator Name NCI Breast Cancer Risk Assessment Tool 5 Year Breast Cancer Risk 3.70% Lifetime Breast Cancer Risk 6.90% Personal Breast Cancer No Personal Ovarian Cancer No Treatments None Family Cancers Mother with breast cancer at age 58. LOCATION: [facility] BREAST COMPOSITION: There are scattered areas of fibroglandular density. FINDINGS: DIAGNOSTIC CATEGORY 1--NEGATIVE. NO CHANGE FROM COMPARISON ASSESSMENT. Scattered benign-appearing calcifications are present. Scattered benign-appearing lymph nodes are present. RIGHT BREAST: No significant suspicious finding. LEFT BREAST: No significant suspicious finding. RECOMMENDATIONS: ROUTINE MAMMOGRAM AND CLINICAL EVALUATION IN 12 MONTHS. PLEASE NOTE: A NORMAL MAMMOGRAM DOES NOT EXCLUDE THE POSSIBILITY OF BREAST CANCER. A CLINICALLY SUSPICIOUS PALPABLE LUMP SHOULD BE BIOPSIED. Dictated by: Alvin Miranda MD on 03/13/2024 at 10:08 Approved by: Alvin Miranda MD on 03/13/2024 at 10:09
== END 2024-03-13 08:23 | disposition home or self-care (01) ==
LOC: MAMMO 08:22
PROVIDERS: PCP Family Medicine; Visit Provider Family Medicine
DX: Z12.31 Encounter for screening mammogram for malignant neoplasm of breast (principal); Z80.3 Family history of malignant neoplasm of breast
CPT/HCPCS: 77063; 77067

== ENCOUNTER 2024-03-13 08:23 | Outpatient (OUT) | payer MEDICARE, OTHER, SELFPAY ==
--- OUTSIDE RECORDS SUMMARY | 2024-03-13 08:29 | XMS_ITS | CCD ---
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, DO Dayanna Attending Provider [facility], Dayanna Attending Unavailable [facility], Dayanna Admitting Unavailable Katerina Tomlin Primary Care Unavailable Allergies Allergy Classification Reported Allergen(s) Allergy Type Date of Onset Reaction(s) Facility (8 sources) Iodine; Translations: [IODINE] Drug Allergy 11-03-2006 AOF, Unknown [facility] Repository Medications Current Medications Medication Drug Class(es) Dates Sig (Normalized) Sig (Original) [id number] 200 actuat albuterol 0.09 mg/actuat metered dose [...] 25 Refills: 3 Ordered: 13-Feb-2023 Matthew SHARMA [facility] Start : 13-Feb-2023 Active Problems [...] panel (Body fld) 44 % [facility] Comment on above: The reference interv al and other method performance specifications have not been established for this body fluid. The test result must be integrated into the clinical context for interpretation. Cell Count/Diff, Fluidon Appearance, Fluid Hazy Normal [facility] Comment on above: Order Comment: Body Fluid Source: Other (Name in the Site) Body Fluid Site: RML Result Comment: The reference interval and other method performance specifications have not been established for this body fluid. The test result must be integrated into the clinical context for interpretation. Performed By: #### F LCCDIFF #### [address] Order Comment: Body Fluid Source: Other (Name in the Site) Body Fluid Site: Rul Color, Fluid Straw Normal [facility] Comment on above: Order Comment: Body Fluid Source: Other (Name in the Site) Body Fluid Site: RML Result Comment: The reference interval and other method performance specifications have not been established for this body fluid. The test result must be integrated into the clinical context for interpretation. Performed By: #### F LCCDIFF #### [address] Order Comment: Body Fluid Source: Other (Name in the Site) Body Fluid Site: Rul Color, Fluid Supernatant Straw Normal [facility] Comment on above: Order Comment: Body Fluid Source: Other (Name in the Site) Body Fluid Site: RML Result Comment: The reference interval and other method performance specifications have not been established for this body fluid. The test result must be integrated into the clinical context for interpretation. Performed By: #### F LCCDIFF #### [facility] [address] [place] [address] [place] Order Comment: Body Fluid Source: Other (Name in the Site) Body Fluid Site: Rul Eosinophils, Fluid 2 /100{WBC} Normal 0-3 [facility] Comment on above: Order Comment: Body Fluid Source: Other (Name in the Site) Body Fluid Site: RML Result Comment: PERF ORMED BY: [place] [address] PATHOLOGIST [employer]ILROAD CAR LETTERER CRISTHIAN REYEZ M.D. Performed By: #### F LCCDIFF #### [address] Order Comment: Body Fluid Source: Other (Name in the Site) Body Fluid Site: Rul Lymphocytes, Fluid 13 % Normal [facility] Comment on above: Order Comment: Body Fluid Source: Other (Name in the Site) Body Fluid Site: RML Result Comment: The reference interval and other method performance specifications have not been established for this body fluid. The test result must be integrated into the clinical context for interpretation. Performed By: #### F LCCDIFF #### [address] Lymphocytes, Fluid 11 % Normal [facility] Comment on above: Order Comment: Body Fluid Source: Other (Name in the Site) Body Fluid Site: Rul Result Comment: The reference interval and other method performance specifications have not been established for this body fluid. The test result must be integrated into the clinical context for interpretation. Performed By: #### F LCCDIFF #### [facility] [address] [place] [address] Monocytes/Macrophages , Fluid 44 % Normal [facility] Comment on above: Order Comment: Body Fluid Source: Other (Name in the Site) Body Fluid Site: RML Result Comment: The reference interval and other method performance specifications have not been established for this body fluid. The test result must be integrated into the clinical context for interpretation. Performed By: #### F LCCDIFF #### [facility] [address] [place] [address] Monocytes/Macrophages , Fluid 45 % Normal [facility] Comment on above: Order Comment: Body Fluid Source: Other (Name in the Site) Body Fluid Site: Rul Result Comment: The reference interval and other method performance specifications have not been established for this body fluid. The test result must be integrated into the clinical context for interpretation. Performed By: #### F LCCDIFF #### [facility] [address] Neutrophil, Fluid 41 % [facility] Comment on above: Order Comment: Body Fluid Source: Other (Name in the Site) Body Fluid Site: RML Result Comment: The reference interval and other method performance specifications have not been established for this body fluid. The test result must be integrated into the clinical context for interpretation. Performed By: #### F LCCDIFF #### [address] Neutrophil, Fluid 42 % [facility] Comment on above: Order Comment: Body Fluid Source: Other (Name in the [facility]) Body Fluid Site: Rul Result Comment: The reference interval and other method performance specifications have not been established for this body fluid. The test result must be integrated into the clinical context for interpretation. Performed By: #### F LCCDIFF #### [facility] [address] [place] [address] RBC, Fluid 2329 [facility] Comment on above: Order Comment: Body Fluid Source: Other (Name in the Site) Body Fluid Site: RML Result Comment: The reference interval and other method performance specifications have not been established for this body fluid. The test result must be integrated into the clinical context for interpretation. Performed By: #### F LCCDIFF #### [facility] [address] [place] [address] RBC, Fluid 2399 [facility] Comment on above: Order Comment: Body Fluid Source: Other (Name in the [facility]) Body Fluid Site: Rul Result Comment: The reference interval and other method performance specifications have not been established for this body fluid. The test result must be integrated into the clinical context for interpretation. Performed By: #### F LCCDIFF #### [facility] [address] [place] [address] TNC, Body Fluid 163 [facility] Comment on above: Order Comment: Body Fluid Source: Other (Name in the Site) Body Fluid Site: RML Result Comment: The reference interval and other method performance specifications have not been established for this body fluid. The test result must be integrated into the clinical context for interpretation. Performed By: #### F LCCDIFF #### [facility] [address] TNC, Body Fluid 352 Normal [facility] Comment on above: Order Comment: Body Fluid Source: Other (Name in the Site) Body Fluid Site: Rul Result Comment: The reference interval and other method performance specifications have not been established for this body fluid. The test result must be integrated into the clinical context for interpretation. Performed By: #### F LCCDIFF #### [facility] [address] Cells Counted Total [#] in B fredy fluidOrdered By: Dayanna Lobo on 01-22-2024 Cells Counted Total (Body fld) [#] 163 mm^3 [facility] Comment on above: The reference interv al and other method performance specifications have not been established for this body fluid. The test result must be integrated into the clinical context for interpretation. Color of Spun Body fluidOrde red By: Dayanna Lobo on 01-22-2024 Color (Spun body fld) Straw [facility] Comment on above: The reference interv al and other method performance specifications have not been established for this body fluid. The test result must be integrated into the clinical context for interpretation. Determination of appearance of body fluidOrdered By: Dayanna Lobo on 01-22-2024 Appearance (Body fld) Hazy [facility] [place] Comment on above: The reference interv al and other method performance specifications have not been established for this body fluid. The test result must be integrated into the clinical context for interpretation. Erythrocytes [#/volume] in B fredy fluid by Automated countOrdered By: Dayanna Lobo on 01-22-2024 RBC Auto (Body fld) [#/Vol] 2329 mm^3 [facility] Comment on above: The reference interv al and other method performance specifications have not been established for this body fluid. The test result must be integrated into the clinical context for interpretation. Evaluation of color of body fluidOrdered By: Dayanna Lobo on 01-22-2024 Color (Body fld) Straw [facility] Comment on above: The reference interv al and other method performance specifications have not been established for this body fluid. The test result must be integrated into the clinical context for interpretation. Alex 01-22-2024 L Specimen: BC Received: 01/23/24 Status: CLAUDAI Req Num: [id number] Spec Type: Cytology Subm Dr: Dayanna Lobo DO Tissues: A BRONWASH (BRONCH) B BRONWASH (R UPPER LOBE) C BRONWASH (R MIDDLE LOBE) Procedures: HE/6, Gross/Micro L4/3, Cyto Prepstain/3, PAPSTN/3 Age/ Patient Sex Location Account Attending Physician Pilo Caban 78/F LABELL [id number] Dayanna Lobo DO SPEC NUM: [id number] RECD: 01/23/24 STATUS: OSCARGuillermo REQ NUM: [id number] MARK: 01/22/24 DR: Dayanna Lobo DO ENTERED: 01/23/240 [facility] DR: Tessa,Lab SPEC TYPE: Cytology DEPT: JASON PRYT ENTERED BY: [id number] RECV BY: [id number] ORDERED: HE/6, Gross/Micro L4/3, Cyto Prepstain/3, PAPSTN/3 [...] BC24 Received: 01/23/24 Status: CLAUDIA Carter Num: [id number] Spec Type: Cytology Subm Dr: Dayanna Lobo DO Tissues: A BRONWASH (BRONCH) B BRONWASH (R UPPER LOBE) C BRONWASH (R MIDDLE LOBE) Procedures: HE/6, Gross/Micro L4/3, Cyto Prepstain/3, PAPSTN/3 Patient: Pilo Caban [id number] (Continued) Specimen: [id number] Received: 01/23/24 (Continued) Gross Description (Continued) Signed (signature on file) Nitesh Chambers MD 01/24/24 1406 Specimen: [id number] Received: 01/23/24 Status: CLAUDIA Carter Num: [id number] Spec Type: Cytology Subm Dr: Dayanna Lobo DO Tissues: A BRONWASH (BRONCH) B BRONWASH (R UPPER LOBE) C BRONWASH (R MIDDLE LOBE) Procedures: HE/6, Gross/Micro L4/3, Cyto Prepstain/3, PAPSTN/3 Patient: Pilo Caban [id number] (Continued) Specimen: [id number] Received: 01/23/24 (Continued) Gross Description (Continued) C. Received fresh labeled with the patient's name, date of and R upper lobe lavage is 5 ml rico cloudy unfixed fluid. 1 Thin Prep slides are prepared. 1 cell blocks are prepared. (CC/nh) Specimen: [id number] Received: 01/23/24-1127 Status: CLAUDIA Carter Num: [id number] Spec Type: Cytology Subm Dr: Dayanna Lobo DO Tissues: A BRONWASH (BRONCH) B BRONWASH (R UPPER LOBE) C BRONWASH (R MIDDLE LOBE) Procedures: HE/6, Gross/Micro L4/3, Cyto Prepstain/3, PAPSTN/3 Patient: Pilo Caban [id number] (Continued) Signed (signature on file) Nitesh Chambers MD 01/24/24 1406 Normal [facility] Manual body fluid eosinophil s/100 leukocytesOrdered By: Dayanna Lobo on 01-22-2024 Eosinophils/100 WBC Manual cnt (Body fld) 2 /100{WBC} 0-3 [facility] Manual body fluid lymphocyte s/100 leukocytesOrdered By: Dayanna Lobo on 01-22-2024 Lymphocytes/100 WBC Manual cnt (Body fld) 13 % [facility] Comment on above: The reference interv al and other method performance specifications have not been established for this body fluid. The test result must be integrated into the clinical context for interpretation. Neutrophils/100 WBC Manual c nt (Body fld)Ordered By: Dayanna Lobo on 01-22-2024 Neutrophils/100 WBC (Body fld) 41 % [facility] Comment on above: The reference interv al and other method performance specifications have not been established for this body fluid. The test result must be integrated into the clinical context for interpretation. A. flavus Ab Immune diff Ql (S)on 01-01-2024 Aspergillus flavus Antibody Negative Neg:<1:1 [facility] A. niger IgE Qn (S)on 2023 Aspergillus niger Antibody Negative Neg:<1:1 [facility] Comment on above: Performed at: [employer] [address] [id number] Director: Skylar Ortega MD, Phone: [phone] Performed at: [employer] [id number] Director: Skylar Ortega MD, Phone: [phone] Adenosine monophosphate.cycl ic [Moles/Vol]on 01-01-2024 Cyclic Citrullinated Peptid IgG/IgA 0 units 0-19 [facility] Comment on above: Negative <20 Weak po sitive 20 - 39 Moderate positive 40 - 59 Strong positive >59Performed at: [employer] [address] [id number] Director: García Salcedo PhD, Phone: [phone] Negative <20 Weak po sitive 20 - 39 Moderate positive 40 - 59 Strong positive >59Performed at: [employer] [id number] Director: García Salcedo PhD, Phone: [phone] Atypical perinuclear antineu trophil cytoplasmic antibodies measurementon 01-01-2024 Neutrophil cytoplasmic Ab.perinuclear.atypic al IF (S) [Titer] <1:20 titer Neg:<1:20 [facility] Comment on above: Serum is slightly he molyzedThe atypical pANCA pattern has been observed in asignificant percentage of patients with ulcerative colitis,primary sclerosing cholangitis and autoimmune hepatitis.Performed at: [employer] [id number] Director: Skylar Ortega MD, Phone: [phone] at: [facility] [id number] Director: García Salcedo PhD, Phone: [phone] Cefuroxime free [Mass/Vol]on 01-01-2024 Anti-Nuclear Antibody Profile Negative Negative [facility] Comment on above: Performed at: [employer] [facility] [employer] [address] [id number] Director: García Salcedo PhD, Phone: [phone] Performed at: [employer] [address] [id number] Director: García Salcedo PhD, Phone: [phone] Performed at: [employer] [facility] [employer] [address] [id number] Director: García Salcedo PhD, Phone: [phone] Performed at: [employer] [address] [id number] Director: García Salcedo PhD, Phone: [phone] H. capsulatum Ab CF Ql (S)on 01-01-2024 Histoplasma Mycelial Ab (Comp Fix) Negative Neg:<1:2 [facility] Histoplasma Yeast Ab (Comp Fix) Negative Neg:<1:2 [facility] Comment on above: Performed at: [employer] [address] [id number] Director: Skylar Ortega MD, Phone: [phone] Performed at: [employer] [facility] [employer] [address] [id number] Director: Skylar Ortega MD, Phone: [phone] Performed at: [facility] [employer] [address] [id number] Director: Skylar Ortega MD, Phone: [phone] Laboratory - Hematology and Cell countson 01-01-2024 ESR (Bld) [Velocity] 25 mm/h <=30 [facility] Myeloperoxidase Ab [Units/vo lume] in Serum by Immunoassayon 01-01-2024 Myeloperoxidase Ab IA Qn (S) <0.2 units 0.0-0.9 [facility] No Panel Informationon 12-31 Histoplasma Galactomannan Antigen Negative <0.5 ng/mL [facility] Comment on above: This test was develo ped and its performance characteristicsdetermined by [employer]. It has not been cleared orapproved by the Food and Drug Administration.Performed at: [employer] [facility], [place] [id number] Director: Lori Green MD, Phone: [phone] Aspergillus fumigatus Antibody Negative Neg:<1:1 [facility] Blastomyces dermatitidis Antibody Negative Neg:<1:1 [facility] Comment on above: Performed at: - [facility] [address] [id number] Director: Skylar Ortega MD, Phone: [phone] C-Reactive Protein, Quantitative 1.37 mg/dL <=0.50 [facility] Perinuclear ANCA (p-ANCA) Antibody <1:20 titer Neg:<1:20 [facility] Comment on above: Serum is slightly he molyzedThe presence of positive fluorescence exhibiting P-ANCA orC-ANCA patterns alone is not specific for the diagnosis ofWegener's Granulomatosis (WG) or microscopic polyangiitis.Decisions about treatment should not be based solely onANCA IFA results. The International ANCA Group Consensusrecommends follow up testing of positive sera with both WY-3 and MPO-ANCA enzyme immunoassays. As many as 5% serumsamples are positive only by EIA. Ref. AM J Clin Eqceho1043;111:507-513. Proteinase 3 Ab [Units/volum e] in Serum by Immunoassayon 01-01-2024 Proteinase 3 Ab IA Qn (S) <0.2 units 0.0-0.9 [facility] SCL-70 extractable nuclear A b IA Qn (S)on 01-01-2024 Scl-70 (Scleroderma) Antibody <0.2 AI 0.0-0.9 [facility] Serum angiotensin converting enzyme (MOJGAN) measurementon 01-01-2024 Angiotensin converting enzyme [Catalytic activity/Vol] 63 U/L 1482 [facility] Comment on above: Performed at: [employer] [place], [place] [id number] Director: García Salcedo PhD, Phone: [phone] Serum classic neutrophil cyt oplasmic antibody titer by immunofluorescenceon 01-01-2024 Neutrophil cytoplasmic Ab.classic IF (S) [Titer] <1:20 titer Neg:<1:20 [facility] Comment on above: Serum is slightly he molyzed Serum or plasma rheumatoid f actor measurement (units/volume)on 01-01-2024 Rheumatoid factor Qn 10.3 [IU]/mL <14.0 [facility] Comment on above: Performed at: [employer] [place], [place] [id number] Director: García Salcedo PhD, Phone: [phone] CT CARDIAC SCORINGon 023 CT CARDIAC SCORING [...] STRUCTURES ARE THE SOLE RESPONSIBILITY OF THE PROJECT MANAGEMENT SPECIALIST SUBMITTING THE ORIGINAL REPORT (NOT THIS ADDENDUM) Electronically signed by: SUKHJINDER MOONEY MD Addendum Ends Patient Name: PILO CABAN STUDY: CT CARDIAC SCORING; 03/24/2023 10:58 am INDICATION: htn, hyperlipedmia E78.5: Hyperlipidemia R07.89: Chest tightness. COMPARISON: None. ACCESSION NUMBER(S): [id number] ORDERING CLINICIAN: BROOKS CASTRO TECHNIQUE: Using prospective [...] Dino. JACC 2015 (http://dx.doi.org/10.1016 /j.j acc.2015.08.035) [employer] Director: Dr. Valerio Morris, Date: 03/24/2023 11:23 am Electronically signed by: SUKHJINDER MOONEY MD Normal [facility] CT Cardiac Scoringon 023 CT Cardiac Scoring Normal [facility] [address] DO Work Phone: Tobacco Screening.on 023 Tobacco use status [facility]PH[facility] b) No [facility] [address] DO Work Phone: [facility] CARDIAC STRESS/REST INJE CTIONon 03-01-2023 [facility] CARDIAC STRESS/REST INJECTION Patient Name: PILO CABAN STUDY: MYOCARDIAL PERFUSION STRESS TEST WITH EXERCISE CONVERTED TO LEXISCAN Performing facility: [facility], [address] [place] [address], [address], [address] Provider: Brooks Castro MD, FACC PCP: Dr. Ellis Tomlin Supervising provider: Haley Osullivan MD, FACC INDICATION: Dyspnea Chest tightness HISTORY: Gender: F; Age: 77 y/o ; Height: 0 cm; Weight: 0 kg. Chest Pain; High Cholesterol; SOB; Denies smoking. COMPARISON: No comparison. ACCESSION NUMBER(S): [id number]; [id number]; [id number] ORDERING CLINICIAN: BROOKS CASTRO TECHNIQUE: ONE DAY [...] Electronically signed by: HALEY OSULLIVAN MD Normal [facility] No Panel Informationon 03-01 Normal -[facility] [address] DO Work Phone: LIPID PROFILEon 02-27-2023 CHOL-HDL RATIO NORM SEE BELOW Normal [facility] Comment on above: Result Comment: 3.3 - 4.4 LOW RISK 4.4 - 7.1 AVERAGE RISK 7.1 - 11.0 MODERATE RISK >11.0 HIGH RISK Performed By: #### L IPID #### [facility] [address] [place], [place] [address] Dr. Krystle Clement Cholesterol [Mass/Vol] 211 mg/dL Critically high <=200 [facility] Comment on above: Performed By: #### L IPID #### [facility] [address] [place], [place] [address] Dr. Krystle Clement Cholesterol in HDL [Mass/Vol] 52 mg/dL Normal 40-60 [facility] Comment on above: Performed By: #### L IPID #### [facility] [address] [place] [address] [address] Krystle Clement Cholesterol in LDL [Mass/Vol] 143.0 mg/dL Normal [facility] Comment on above: Performed By: #### L IPID #### [facility] [address] [place] [address] Dr. Krystle Clement Cholesterol.total/Cho lesterol in HDL [Mass ratio] 4.1 {ratio} Normal [facility] Comment on above: Performed By: #### L IPID #### [facility] [address] [place] [address] [address] Krystle Clement HDL NORMAL > or = 60 mg/dl - LO W CARDIOVASCULAR RISK <40 mg/dl - HIGH CARDIOVASCULAR RISK Normal [facility] Comment on above: Performed By: #### L IPID #### [facility] [address] [place] [address] Dr. Krystle Clement LDL CALC NORMAL SEE BELOW Normal [facility] Comment on above: Result Comment: <100 mg/dl OPTIMAL 100 - 129 mg/dl NEAR OR ABOVE OPTIMAL 130 - 159 mg/dl BORDERLINE HIGH 160 - 189 mg/dl HIGH >190 mg/dl VERY HIGH Performed By: #### L IPID #### [facility] [address] [place] [address] Dr. Krystle Clement Triglyceride [Mass/Vol] 80 mg/dL Normal <=150 [facility] Comment on above: Performed By: #### L IPID #### [facility] [address] [place] [address] Dr. Krystle Clement VLDL CALC 16.0 mg/dL Normal [facility] Comment on above: Performed By: #### L IPID #### [facility] [address] [place] [address] Dr. Krystle Clement Office Visit (Cardiology)on 02-13-2023 [...] Order; Status:Hold For - Scheduling,Retrospective Authorization; Requested for:[id number]; Radiologist to Determine Optimal Study : Y What are the patient's signs and symptoms? : dyspnea chest tightness Chest tightness, Dyspnea, Hyperlipidemia Lipid Panel; Status:Active - Retrospective Authorization; Requested for:[id number]; Class 1 obesity with body mass index (BMI) of 30.0 to 30.9 in adult Healthy Weight Tips; Status:Complete - Retrospective Authorization; Done: [id number] Some eating tips that can help you lose weight.; Status:Complete - Retrospective Authorization; Done: [id number] Dyspnea IO EKG Electrocardiogram- 12 Lead; Status:Complete; Done: [id number] SocHx: Never a smoker Tobacco Use Screening; Status:Complete; Done: [id number] Tobacco Use Screening; Status:Complete; Done: [id number] Patient Instructions Please bring all medicines, vitamins, [...] times, but not consistently, and that 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 Assessment: 1. 77-year-old with exertional shortness [...] long hist (more content not included)... Normal IMANIN Tobacco Screening.on 023 Adult depression screening assessment No [facility] 250 DO Work Phone: Fall risk assessment a) No falls within the last year [facility] 250 DO Work Phone: Tobacco use status CPHS b) No [facility] 250 DO Work Phone: ECHOCARDIO M/2D COMPLETEon 0 01-16-2023 ECHOCARDIO M/2D COMPLETE Patient: PILO CABAN Exam Date: 01/16/2023 : 1945 Gender:F Ordering : DR KATERINA TOMLIN M.D. Admission #: [id number] Family : Order #: [id number] CLICK HERE TO VIEW EXAM ECHOCARDIOGRAM REPORT [...] Stern M.D. on 01/16/2023 at 14:53 Normal [facility] B-Type Natriuretic Peptideon 01-04-2023 B-Type Natriuretic Peptide see note [facility] Other B-Type Natriuretic Peptide 582.0 pg/ml <=1,800.0 pg/ml [facility] Other BNPon 01-04-2023 Natriuretic peptide B (Bld) [Mass/Vol] 582.0 pg/mL Normal <=1,800.0 [facility] Comment on above: Performed By: #### B CHECKER PRODUCT DESIGN, BMP #### [facility] [address] [place] [address] Dr. Krystle Clement CBC AUTO DIFFon 01-04-2023 BASO # 0.0 103/ul Normal 0.0-0.1 [facility] Comment on above: Performed By: #### C BC #### [facility] [address] [place] [address] Dr. Krystle Clement Basophils/100 WBC (Bld) 0.7 % Normal 0.2-2.0 [facility] Comment on above: Performed By: #### C BC #### [facility] [address] [place] [address] Dr. Krystel Clement EO # 0.4 103/ul Normal 0.0-0.7 [facility] Comment on above: Performed By: #### C BC #### [facility] [address] [place] [address] Dr. Krystle Clement Eosinophils/100 WBC (Bld) 5.7 % Normal 0.9-7.0 [facility] Comment on above: Performed By: #### C BC #### [facility] [address] [place] [address] Dr. Krystle Clement Erythrocyte distribution width (RBC) [Ratio] 12.9 % Normal 11.0-15.0 [facility] Comment on above: Performed By: #### C BC #### [facility] [address] [place] [address] Dr. Krystle Clement Hematocrit (Bld) [Volume fraction] 44.3 % Normal 36.0-48.0 [facility] Comment on above: Performed By: #### C BC #### [facility] [address] [place] [address] Dr. Krystle Clement Hemoglobin (Bld) [Mass/Vol] 15.0 g/dL Normal 12.0-16.0 [facility] Comment on above: Performed By: #### C BC #### [facility] [address] [place] [address] Dr. Krystle Clement IG # 0.02 10e3/ul Normal 0.00-0.03 [facility] Comment on above: Performed By: #### C BC #### [facility] [address] [place] [address] Dr. Krystle Clement IG % 0.3 % Normal 0.0-0.5 [facility] Comment on above: Performed By: #### C BC #### [facility] [address] [place] [address] Dr. Krystle Clement LYMPH # 1.1 103/ul Critically low 1.2-3.8 [facility] Comment on above: Performed By: #### C BC #### [facility] [address] [place] [address] Dr. Krystle Clement Lymphocytes/100 WBC (Bld) 18.1 % Critically low 20.5-60.0 [facility] Comment on above: Performed By: #### C BC #### [facility] [address] [place] [address] Dr. Krystle Clement MANUAL DIFF REQ NO Normal [facility] Comment on above: Performed By: #### C BC #### [facility] [address] [place] [address] Dr. Krystle Clement MCH (RBC) [Entitic mass] 30.9 pg Normal 26.7-34.0 [facility] Comment on above: Performed By: #### C BC #### [facility] [address] [place] [address] Dr. Krystle Clement MCHC (RBC) [Mass/Vol] 33.9 g/dL Normal 29.9-35.2 [facility] Comment on above: Performed By: #### C BC #### [facility] [address] [place] [address] Dr. Krystle Clement MCV (RBC) [Entitic vol] 91.3 fL Normal 81.0-99.0 [facility] Comment on above: Performed By: #### C BC #### [facility] [address] [place] [address] Dr. Krystle Clement MONO # 0.7 103/ul Normal 0.3-0.8 [facility] Comment on above: Performed By: #### C BC #### [facility] [address] [place] [address] Dr. Krystle Clement Monocytes/100 WBC (Bld) 11.7 % Normal 1.7-12.0 [facility] Comment on above: Performed By: #### C BC #### [facility] [address] [place] [address] Dr. Krystle Clement NEUT # 3.9 103/ul Normal 1.4-6.5 [facility] Comment on above: Performed By: #### C BC #### [facility] [address] [place] [address] Dr. Krystle Clement Neutrophils/100 WBC (Bld) 63.5 % Normal 43.0-75.0 [facility] Comment on above: Performed By: #### C BC #### [facility] [address] [place] [address] Dr. Krystle Clement Platelet mean volume (Bld) [Entitic vol] 8.8 fL Critically low 9.5-13.5 [facility] Comment on above: Performed By: #### C BC #### [facility] [address] [place] [address] Dr. Krystle Clement PLT 232 103/ul Normal 150-450 [facility] Comment on above: Performed By: #### C BC #### [facility] [address] [place] [address] Dr. Krystle Clement RBC 4.85 106/ul Normal 4.20-5.40 [facility] Comment on above: Performed By: #### C BC #### [facility] [address] [place] [address] Dr. Krystle Clement WBC 6.1 103/ul Normal 4.0-11.0 [facility] Comment on above: Performed By: #### C BC #### [facility] [address] [place] [address] Dr. Krystle Clement PROF CHEM 8 (BAS METB)on Anion gap [Moles/Vol] 11.6 mmol/L Normal [facility] Comment on above: Performed By: #### B CHECKER PRODUCT DESIGN, BMP #### [facility] [address] [place] [address] Dr. Krystle Clement Calcium [Mass/Vol] 9.5 mg/dL Normal 8.5-10.1 [facility] Comment on above: Performed By: #### B CHECKER PRODUCT DESIGN, BMP #### [facility] [address] [address] [address] Krystle Clement Chloride [Moles/Vol] 110 mmol/L Critically high 98-107 [facility] Comment on above: Performed By: #### B CHECKER PRODUCT DESIGN, BMP #### [facility] [address] [place] [address] Dr. Krystle Clement CO2 [Moles/Vol] 29.7 mmol/L Normal 21.0-32.0 [facility] Comment on above: Performed By: #### B CHECKER PRODUCT DESIGN, BMP #### [facility] [address] [address] [address] Krystle Clement Creatinine [Mass/Vol] 1.11 mg/dL Critically high 0.55-1.02 [facility] Comment on above: Performed By: #### B CHECKER PRODUCT DESIGN, BMP #### [facility] [address] [place] [address] Dr. Krystle Clement EGFR-AF PUERTO RICAN 58 mL/min/1.73m2 Critically low >=60 [facility] Comment on above: Performed By: #### B CHECKER PRODUCT DESIGN, BMP #### [facility] [address] [address] [address] Krystle Clement EGFR-NON AF PUERTO RICAN 48 mL/min/1.73m2 Critically low >=60 [facility] Comment on above: Performed By: #### B CHECKER PRODUCT DESIGN, BMP #### [facility] [address] [place] [address] Dr. Krystle Clement Glucose [Mass/Vol] 77 mg/dL Normal 74-106 [facility] Comment on above: Performed By: #### B CHECKER PRODUCT DESIGN, BMP #### [facility] [address] [address] [address] Krystle Clement Potassium [Moles/Vol] 4.3 mmol/L Normal 3.5-5.1 [facility] Comment on above: Performed By: #### B CHECKER PRODUCT DESIGN, BMP #### [facility] [address] [address] [address] Krystle Clement Sodium [Moles/Vol] 147 mmol/L Critically high 136-145 [facility] Comment on above: Performed By: #### B CHECKER PRODUCT DESIGN, BMP #### [facility] [address] [address] [address] Krystle Clement Urea nitrogen [Mass/Vol] 16.0 mg/dL Normal 7.0-18.0 [facility] Comment on above: Performed By: #### B CHECKER PRODUCT DESIGN, BMP #### [facility] [address] [address] [address] Krystle Clement Urea nitrogen/Creatinine [Mass ratio] 14.4 mg/mg Normal [facility] Comment on above: Performed By: #### B CHECKER PRODUCT DESIGN, BMP #### [facility] [address] CHEST WO CONon [...] by: BARBARA CHO Date: 2022-11-03 15:55 Normal [facility] MAMM SCREEN 3D ITALIA CADon 11-03-2022 MG MAMM SCREEN 3D ITALIA CAD Patient: PILO CABAN Exam Date: 11/03/2022 : 1945 Gender:F Ordering : DR KATERINA TOMLIN M.D. Admission #: [id number] Family : Order #: [id number] CLICK HERE TO VIEW EXAM RADIOLOGY REPORT [...] breast cancer at age 59. LOCATION: [facility] BREAST COMPOSITION: Scattered areas fibroglandular density. [...] Cho MD on 11/03/2022 at 15:57 Normal [facility] CT CHEST WO CONon 03-10-2022 CT [...] by: YFN SELF Date: 2022-03-10 10:46 Normal [facility] Vital Signs Date Time Vital Sign Value Performing Clinician Facility 12-29-2023 11:03050 Body height 162.56 cm MD Katerina Tomlin Work Phone: [facility] 12-29-2023 11:03050 Body mass index (BMI) [Ratio] 28 kg/m2 MD Katerina Tomlin Work Phone: [facility] 12-29-2023 11:03050 Body weight 74.16 kg MD Katerina Tomlin Work Phone: [facility] 12-29-2023 11:03-050 Diastolic blood pressure 90 mm[Hg] MD Katerina Tomlin Work Phone: [facility] 12-29-2023 11:03-0500 Heart rate 94 /min MD Katerina Tomlin Work Phone: [facility] 12-29-2023 11:03-0500 Systolic blood pressure 139 mm[Hg] MD Katerina Tomlin Work Phone: [facility] 04-07-2023 13:30-0400 Body height 162.56 cm Katerina Tomlin Other [facility] Other 04-07-2023 13:30-0400 Body mass index (BMI) [Ratio] 29.69 kg/m2 Katerina Tomlin Other [facility] Other 04-07-2023 13:30-0400 Body weight 78.47 kg Katerina Tomlin Other [facility] Other 04-07-2023 13:30-0400 Diastolic blood pressure 76 mm[Hg] Katerina Tomlin Other [facility] Other 04-07-2023 13:30-0400 Systolic blood pressure 161 mm[Hg] Katerina Tomlin Other [facility] Other 03-20-2023 16:02-0400 Diastolic blood pressure 82 mm[Hg] Katerina Tomlin Work Phone: [facility] 250 DO Work Phone: 03-20-2023 16:02-0400 Diastolic blood pressure 80 mm[Hg] Katerina Tomlin Work Phone: [facility] [employer] 250 DO Work Phone: 03-20-2023 16:02-0400 Systolic blood pressure 138 mm[Hg] Katerina Tomlin Work Phone: [facility] [employer] 250 DO Work Phone: 03-20-2023 15:32-0400 Body height 160.02 cm Katerina Tomlin Work Phone: [facility] [employer] 250 DO Work Phone: 03-20-2023 15:32-0400 Body mass index (BMI) [Ratio] 30.47 kg/m2 Katerina Tomlin Work Phone: [facility] 250 DO Work Phone: 03-20-2023 15:32-0400 Body surface area Derived from formula 1.81 m2 Katerina Tomlin Work Phone: [facility] 250 DO Work Phone: 03-20-2023 15:32-0400 Body weight 78.02 kg Katerina Tomlin Work Phone: [facility] 250 DO Work Phone: 03-20-2023 15:32-0400 Diastolic blood pressure 86 mm[Hg] Katerina Tomlin Work Phone: [facility] 250 DO Work Phone: 03-20-2023 15:32-0400 Heart rate 74 /min Katerina Tomlin Work Phone: [facility] 250 DO Work Phone: 03-20-2023 15:32-0400 Systolic blood pressure 144 mm[Hg] Katerina Tomlin Work Phone: [facility] 250 DO Work Phone: 02-27-2023 14:47-0400 143 1 Katerina Tomlin Work Phone: [facility] 250 DO Work Phone: Comment on above: [facility] 02-13-2023 09:36-0400 Diastolic blood pressure 70 mm[Hg] Katerina Tomlin Work Phone: [facility] 250 DO Work Phone: 02-13-2023 09:36-0400 Systolic blood pressure 138 mm[Hg] Katerina Tomlin Work Phone: [facility] 250 DO Work Phone: 02-13-2023 09:35-0400 Body height 160.02 cm Katerina Tomlin Work Phone: [facility] 250 DO Work Phone: 02-13-2023 09:35-0400 Body mass index (BMI) [Ratio] 30.65 kg/m2 Katerina Tomlin Work Phone: [facility] 250 DO Work Phone: 02-13-2023 09:35-0400 Body surface area Derived from formula 1.82 m2 Katerina Tomlin Work Phone: [facility] 250 DO Work Phone: 02-13-2023 09:35-0400 Body weight 78.47 kg Katerina Tomlin Work Phone: [facility] 250 DO Work Phone: 02-13-2023 09:35-0400 Diastolic blood pressure 72 mm[Hg] Katerina Tomlin Work Phone: [facility] 250 DO Work Phone: 02-13-2023 09:35-0400 Heart rate 63 /min Katerina Tomlin Work Phone: [facility] 250 DO Work Phone: 02-13-2023 09:35-0400 Systolic blood pressure 130 mm[Hg] Katerina Tomlin Work Phone: [facility] 250 DO Work Phone: 01-02-2023 09:30-0500 Body height 162.56 cm Katerina Tomlin Other [facility] Other 01-02-2023 09:30-0500 Body mass index (BMI) [Ratio] 29.52 kg/m2 Katerina Tomlin Other [facility] Other 01-02-2023 09:30-0500 Body weight 78.02 kg Katerina Tomlin Other [facility] Other 01-02-2023 09:30-0500 Diastolic blood pressure 70 mm[Hg] Katerina Tomlin Other [facility] Other 01-02-2023 09:30-0500 SaO2% (BldA) [Mass fraction] 98 % Katerina Tomlin Other [facility] Other 01-02-2023 09:30-0500 Systolic blood pressure 142 mm[Hg] Katerina Tomlin Other [facility] Other Encounters Encounter Date Encounter Type Care Provider Facility Start: 01-22-2024 End: 01-22-2024 ambulatory [facility] Facility:[facility] Start: 01-22-2024 End: 01-22-2024 ambulatory MD Katerina Tomlin Work Phone: [facility] Work Phone: Start: 01-22-2024 End: 01-22-2024 Departed Referred MD Katerina Tomlin Work Phone: [facility] Start: 01-01-2024 Non-patient / Non-visit MD Bettie Tomlin Work Phone: [facility] Work Phone: Start: 12-29-2023 End: 12-29-2023 Patient encounter procedure MD Katerina Tomlin Work Phone: [facility] Physician [facility] Work Phone: Start: 11-28-2023 End: 11-28-2023 ambulatory CHOCO A PETITTI Not Available Start: 10-03-2023 End: 10-03-2023 ambulatory CHOCO A PETITTI Not Available Start: 04-07-2023 End: 04-07-2023 ambulatory Katerina Tomlin Other [facility] Other Start: 04-07-2023 Patient encounter procedure Katerina Tomlin [facility] Start: 03-28-2023 Chart Update Katerina Tomlin Work Phone: [facility] 250 DO Work Phone: Start: 03-24-2023 Chart Update Katerina Tomlin Work Phone: [facility] 250 DO Work Phone: Start: 03-24-2023 ambulatory Brooks Marquez Facility: [id number] Start: 03-02-2023 Chart Update Katerina Tomlin Work Phone: [facility] 250 DO Work Phone: Start: 03-01-2023 ambulatory Brooks Marquez Facility: [id number] Start: 02-27-2023 End: 02-28-2023 ambulatory [facility] [place] Start: 02-14-2023 End: 02-14-2023 ambulatory Katerina Tomlin Other [facility] Other Start: 02-14-2023 Telephone encounter Katerina Tomlin [facility] Start: 02-13-2023 Office consultation new/estab patient 60 min Katerina Tomlin Work Phone: [facility] 250 DO Work Phone: Start: 02-13-2023 ambulatory MD BROOKS CASTRO Facilit [id number] Start: 01-18-[address] Katerina Tomlin Facility:[facility] Start: 01-17-2023 End: 01-17-2023 ambulatory Katerian Tomlin Other [facility] Other Start: 01-17-2023 Telephone encounter Katerina Tomlin [facility] Start: 01-16-2023 End: 01-17-[address] KATERINA TOMLIN Facility:H1 Start: 01-05-2023 End: 01-05-2023 ambulatory Katerina Tomlin Other [facility] Other Start: 01-05-2023 Telephone encounter Katerina Tomlin [facility] Start: 01-04-2023 End: 01-05-[address] KATERINA TOMLIN Facility:H1 Start: 01-02-2023 End: 01-02-2023 ambulatory Katerina Tomlin Other [facility] Other Start: 01-02-2023 Office outpatient vi sit 15 minutes Katerina Tomlin [facility] Start: 11-03-2022 End: 11-04-2022 ambulatory DAYANNA LOBO . Facility: Start: 03-10-2022 End: 03-11-2022 ambulatory DAYANNASALEEM LOBO . Facility: Start: 10-17-2018 End: 10-17-2018 Patient encounter procedure EMILY Oleg YIN [facility] Procedures Date Procedure Procedure Detail Performing Clinician Appendectomy Katerina Tomlin Work Phone: section Katerina ochoa Work Phone: Colonoscopy Katerina Tomlin Work Phone: Tonsillectomy and adenoidectomy Katerina Tomlin Work Phone: Plan of Treatment Date Care Activity Detail Author Start: 03-20-2023 FUV, Provider: Brooks Castro, Status: Pen, Time: 3:30 PM FUV, Provider: Brooks Castro, Status: Pen, Time: 3:30 PM [facility] 250 DO Work Phone: Start: 03-01-2023 STRESS NUC, Provider : ARACELI CHERRYI NUCLEAR 01,[id number], Status: Pen, Time: 8:00 AM STRESS NUC, Provider: ARACELI CHERRYI NUCLEAR 01,[id number], Status: Pen, Time: 8:00 AM [facility] 250 DO Work Phone: Immunizations Immunization Date Immunization Notes Care Provider Lucila ferrari 10-25-2021 Pfizer-BioNTech COVI D-19 Vacc 30 MCG/0.3ML Intramuscular Suspension Katerina Tomlin Work Phone: [facility] 250 DO Work Phone: 03-25-2021 Pfizer-BioNTech COVI D-19 Vacc 30 MCG/0.3ML Intramuscular Suspension Katerina Tomlin Work Phone: [facility] 03-01-2021 Pfizer-BioNTech COVI D-19 Vacc 30 MCG/0.3ML Intramuscular Suspension Katerina Tomlin Work Phone: [facility] 10-25-2019 pneumococcal polysaccharide vaccine, 23 valent MD Katerina Tomlin Work Phone: [facility] 10-08-2016 influenza virus vacc ine, unspecified formulation MD Katerina Tomlin Work Phone: [facility] 10-06-2016 pneumococcal conjuga te vaccine, 13 valent MD Katerina Tomlin Work Phone: [facility] 04-09-2015 pneumococcal conjuga te vaccine, 13 valmp Tomlin Work Phone: [address] [place] [address] DO Work Phone: 08-31-2008 pneumococcal polysaccharide vaccine, 23 valent Katerina Tomlin Work Phone: [address] [address] DO Work Phone: Payers Date Payer Category Payer Self-pay [id number] 1958 Medicare [id number] 2.1 [id number] 1958 Unknown [id number] 2.16 [id number] 1945 Unknown [id number] 2.16. [id number] 1945 Unknown [id number] 2.16.84 0.1.646188.3.579.2.593 1945 Unknown [id number] 2.16.84 0.1.290757.3.579.2.593 1945 Unknown [id number] 2.16.84 0.1.318016.3.579.2.593 1945 Unknown [id number] 2.16.84 0.1.351610.3.579.2.593 1945 Unknown [id number] 2.16.84 0.1.368492.3.579.2.593 1945 Unknown [id number] 2.16.84 0.1.051905.3.579.2.593 1945 Unknown [id number] 2.16.84 0.1.470112.3.579.2.593 1945 Unknown [id number] 2.16.8 40.1.554323.3.579.2.1068 1945 Unknown [id number] 2.16.8 40.1.809560.3.579.2.1068 1945 Unknown [id number] 2.16.84 0.1.338740.3.579.2.1259 1945 Unknown [id number] 2.16.840 .[id number] Unknown Unknown [id number] Unknown [id number] 2.16.8 [id number] Social History Date Type Detail Facility Unknown if ever smoked [facility] Other Sex Assigned At Sex Assigned At Bir th [facility] Other [facility] ingestion [facility] Work Phone: Comment on above: couple weekly whiske y; coffee daily; Start: 1945 Sex Assigned At Female F [facility] Evaluation note 04-07-2023 Note Date & Type Note Facility 04-07-2023 Evaluation note Encounter Date Diagnosis Assessment Notes Mar, Inflamed seborrheic keratosis (ICD-10 - L82.0) cryotherapy on lesion [facility] Other Evaluation note 04-07-2023 Note Date & Type Note Facility 04-07-2023 Evaluation note Encounter Date Diagnosis Assessment Notes Mar, Inflamed seborrheic keratosis (ICD-10 - L82.0) cryotherapy on lesion. There is no tick bite. [facility] Other Evaluation note 01-17-2023 Note Date & Type Note Facility 01-17-2023 Evaluation note Encounter Date Diagnosis Assessment Notes Dec, Dyspnea, unspecified (ICD-10 - R06.00) Dec, Other abnormalities of breathing (ICD-10 - R06.89) Dec, Abnormal EKG (ICD-10 - R94.31) [facility] Other Evaluation note 01-02-2023 Note Date & Type Note Facility 01-02-2023 Evaluation note Encounter Date Diagnosis Assessment Notes Dec, Leg edema (ICD-10 - R60.0) Discussed differential including heart failure. Pt would like to get tests to have a cause for her ongoing symptoms. Dec, Dyspnea on exertion (ICD-10 - R06.09) PFT this week. Complete tests as ordered. Pt agrees. [facility] Other Chief complaint Narrative - Reported Note Date & Type Note Facility Chief complaint Narrative - Reported PILO CABAN is being seen for a consultation for. 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 77-year-old with exertional shortness of breath [...] call if further questions arise,Sincerely,Brooks Castro MD [address] [place] [address] DO Work Phone: Summary Purpose Family History [...] 1 Abnormal EKG (R94.31 ) Referral Organization [facility] Medical linwilly Referring Provider First Name Katerina Referring Provider Last Name Nabor Referring Provider Specialty Family [facility] Referred Organization [facility] enter Referred Provider Brandt Ramírez Referred Address [address] [place] [address] Referred Provider Specialty Cardiology Referral Priority Routine General Notes Bindu Thomas 12:56:01 PM >received today, attachments made, notes locked, and referral faxed Additional Source Comments INFORMATION SOURCE (unrecogn ized section and content) DATE CREATED AUTHOR 10/20/2018 [facility] DATE CREATED AUTHOR AUTHOR'S ORGANIZ ATION 02/13/2023 [facility] DATE CREATED AUTHOR AUTHOR'S ORGANIZ ATION 02/14/2023 [facility] DATE CREATED AUTHOR AUTHOR'S ORGANIZ ATION 03/03/2023 [facility] DATE CREATED AUTHOR AUTHOR'S ORGANIZ ATION 04/07/2023 [facility] DATE CREATED AUTHOR AUTHOR'S ORGANIZ ATION 11/29/2023 [facility] EPIC DATE CREATED AUTHOR AUTHOR'S ORGANIZ ATION 01/26/2024 [facility] REASON FOR VISIT (unrecogniz ed section [...] BE BASED ON THE PRIMARY CLINICAL RECORDS. [facility]. provides no warranty or guarantee of the accuracy or completeness of information in this document.
--- NOTE | 2024-03-13 08:36 | CT_ITS ---
[address] [address] Patient Name: PILO GREGORY MRN: [id number] date: 1945 Sex: F Assigned Patient Location: CT Current Patient Location: [facility] Accession/Order Number: [id number] Exam Date: 03/13/2024 08:40 Report Date: 03/13/2024 10:29 At the request of: DAYANNA LOBO Procedure: CT chest wo con EXAMINATION: CT chest wo con HISTORY: Multiple Pulmonary Nodules R91.8 COMPARISON: 12/25/2023 TECHNIQUE: Multi-planar CT images were created with IV contrast. Axial, Coronal, and Sagittal images. Dose reduction techniques were achieved by using automated exposure control and/or adjustment of mA and/or kV according to patient size and/or use of iterative reconstruction technique. FINDINGS: LUNGS: Again demonstrated are innumerable round and irregular pulmonary nodules measuring from 1 tor 1.5 cm in diameter. Additional areas of partial consolidation are noted along the posterior aspect of the right upper lobe marginating the major fissure and extending from the left hilum in the left upper lobe and lingula. Calcified tracheobronchial tree. PLEURA: No mass, effusion, or pneumothorax. VASCULATURE: No abnormality. BREANNE: Calcified and noncalcified bilateral hilar lymphadenopathy, grossly stable MEDIASTINUM: Calcified and noncalcified prevascular pretracheal and subcarinal lymphadenopathy CARDIAC: No enlargement or or cardiac effusion Coronary calcifications: Mild AORTA: No aortic aneurysm. Calcific atherosclerosis CHEST WALL: No mass or axillary adenopathy. BONES: No bone lesion or fracture. LIMITED ABDOMEN: The spleen is prominent measuring 15.1 cm in AP dimension. Extensive cholelithiasis, gallbladder is partially visualized OTHER: Negative. CT/CT chest wo con IMPRESSION: Innumerable pulmonary nodules and patchy parenchymal infiltrates, grossly stable. Consider chronic granulomatous process versus an atypical infection Electronically authenticated by: BARBARA CHO Date: 03/13/2024 10:29
== END 2024-03-13 08:24 | disposition home or self-care (01) ==
LOC: CT 08:23
PROVIDERS: PCP Family Medicine; Visit Provider Internal Medicine
DX: Z12.31 Encounter for screening mammogram for malignant neoplasm of breast (principal); Z80.3 Family history of malignant neoplasm of breast; R91.8 Other nonspecific abnormal finding of lung field
CPT/HCPCS: 71250; 77063; 77067

== ENCOUNTER 2024-07-04 08:21 | Outpatient (OUT) | payer MEDICARE, OTHER, SELFPAY ==
[2024-07-04 08:57] LABS: Estimated GFR (African America 56 (>=60); Estimated GFR (Non-African Ame 46 (>=60)
--- NOTE | 2024-07-04 09:20 | CT_ITS ---
[address] [address] Patient Name: PILO GREGORY MRN: [id number] date: 1945 Sex: F Assigned Patient Location: CT Current Patient Location: Accession/Order Number: [id number] Exam Date: 07/04/2024 09:10 Report Date: 07/05/2024 07:52 At the request of: DAYANNA LOBO Procedure: CT chest w con EXAMINATION: CT chest w con HISTORY: Multiple Pulmonary Nodules R91.8 COMPARISON: CT chest 03/13/2024, 11/03/2022, 03/10/2022 TECHNIQUE: Multi-planar CT images were obtained without and/or with IV contrast as indicated by examination type. Axial, Coronal, and Sagittal images. Dose reduction techniques were achieved by using automated exposure control and/or adjustment of mA and/or kV according to patient size and/or use of iterative reconstruction technique. FINDINGS: LUNGS: Innumerable round nodules, small patchy opacities, and confluent areas within the lungs. PLEURA: No mass, effusion, or pneumothorax. VASCULATURE: No abnormality. BREANNE: Bilateral adenopathy. MEDIASTINUM: Adenopathy. CARDIAC: Mild cardiomegaly. AORTA: No aneurysm or dissection. CHEST WALL: No mass or axillary adenopathy. BONES: No bone lesion or fracture. LIMITED ABDOMEN: Enlarged spleen, 14.8 cm. Several 1 cm stones within gallbladder. Limited images of the upper abdomen. OTHER: Negative. CT/CT chest w con IMPRESSION: 1. Innumerable pulmonary nodules, opacities, and confluent areas within the lungs bilaterally of uncertain etiology; grossly stable compared to 03/13/2024, but these have been increasing since at least 03/10/2022. 2. Stable mediastinal and bilateral hilar lymphadenopathy. Electronically authenticated by: ROBER CHÁVEZ Date: 07/05/2024 07:52
== END 2024-07-04 08:22 | disposition home or self-care (01) ==
LOC: CT 08:22
PROVIDERS: PCP Family Medicine; Visit Provider Internal Medicine
DX: R91.8 Other nonspecific abnormal finding of lung field (principal)
CPT/HCPCS: 36415; 71260; 82565; Q9967

== ENCOUNTER 2024-08-05 10:07 | Outpatient (OUT) | payer MEDICARE, OTHER, SELFPAY ==
--- OUTSIDE RECORDS SUMMARY | 2024-08-05 10:26 | XMS_ITS | CCD ---
Author Organization [facility] Care Team Providers Care Grinding And Spraying Supervisor Name Role Phone REYNOLDEMILY GOODSON Oleg Unavailable Unavailable Katerina Tomlin Unavailable Katerina Tomlin [...] Unavailable TOMLIN, DR KATERINA Aparicio Attending Unavailable NABOR, DR [...] Unavailable MARQUIS, DR BARBARA [employer] Unavailable DR KATERINA TOMLIN Primary Care [...] Unavailable MD Katerina Tomlin Primary Care Provider [facility], DO Dayanna Attending Provider [facility], Dayanna Attending Unavailable [facility], Dayanna Admitting Unavailable Katerina Tomlin Primary Care Unavailable Allergies Allergy Classification Reported Allergen(s) Allergy Type Date of Onset Reaction(s) Facility (8 sources) Iodine; Translations: [IODINE] Drug Allergy 11-03-2006 AOF, Unknown [facility] Repository Medications Current Medications Medication Drug Class(es) Dates Sig (Normalized) Sig (Original) [id number] 200 actuat albuterol 0.09 mg/actuat metered dose [...] 01-22-2024 Differential panel (Body fld) 44 % [facility] Comment on above: The reference interv al and other method performance specifications have not been established for this body fluid. The test result must be integrated into the clinical context for interpretation. Cell Count/Diff, Fluidon Appearance, Fluid Hazy Normal [facility] Comment on above: Order Comment: Body Fluid Source: Other (Name in the Site) Body Fluid Site: RML Result Comment: The reference interval and other method performance specifications have not been established for this body fluid. The test result must be integrated into the clinical context for interpretation. Performed By: #### F LCCDIFF #### [address] Order Comment: Body Fluid Source: Other (Name in the Site) Body Fluid Site: Rul Color, Fluid Straw Normal [facility] Comment on above: Order Comment: Body Fluid Source: Other (Name in the Site) Body Fluid Site: RML Result Comment: The reference interval and other method performance specifications have not been established for this body fluid. The test result must be integrated into the clinical context for interpretation. Performed By: #### F LCCDIFF #### [facility] [address] [place] [address] Order Comment: Body Fluid Source: Other (Name in the Site) Body Fluid Site: Rul Color, Fluid Supernatant Straw Normal [facility] Comment on above: Order Comment: Body Fluid Source: Other (Name in the Site) Body Fluid Site: RML Result Comment: The reference interval and other method performance specifications have not been established for this body fluid. The test result must be integrated into the clinical context for interpretation. Performed By: #### F LCCDIFF #### [address] Order Comment: Body Fluid Source: Other (Name in the Site) Body Fluid Site: Rul Eosinophils, Fluid 2 /100{WBC} Normal 0-3 [facility] Comment on above: Order Comment: Body Fluid Source: Other (Name in the Site) Body Fluid Site: RML Result Comment: PERF ORMED BY: [place] [address] PATHOLOGIST DIRECTOR CREDIT RISK CRISTHIAN REYEZ M.D. Performed By: #### F LCCDIFF #### [address] Order Comment: Body Fluid Source: Other (Name in the Site) Body Fluid Site: Rul Lymphocytes, Fluid 13 % Normal [facility] Comment on above: Order Comment: Body Fluid Source: Other (Name in the Site) Body Fluid Site: RML Result Comment: The reference interval and other method performance specifications have not been established for this body fluid. The test result must be integrated into the clinical context for interpretation. Performed By: #### F LCCDIFF #### [address] Lymphocytes, Fluid 11 % Normal [facility] Comment on above: Order Comment: Body Fluid Source: Other (Name in the Site) Body Fluid Site: Rul Result Comment: The reference interval and other method performance specifications have not been established for this body fluid. The test result must be integrated into the clinical context for interpretation. Performed By: #### F LCCDIFF #### [address] Monocytes/Macrophages , Fluid 44 % Normal [facility] Comment on above: Order Comment: Body Fluid Source: Other (Name in the Site) Body Fluid Site: RML Result Comment: The reference interval and other method performance specifications have not been established for this body fluid. The test result must be integrated into the clinical context for interpretation. Performed By: #### F LCCDIFF #### [address] Monocytes/Macrophages , Fluid 45 % Normal [facility] Comment on above: Order Comment: Body Fluid Source: Other (Name in the Site) Body Fluid Site: Rul Result Comment: The reference interval and other method performance specifications have not been established for this body fluid. The test result must be integrated into the clinical context for interpretation. Performed By: #### F LCCDIFF #### [facility] [address] [id number] [facility] Neutrophil, Fluid 41 % [facility] Comment on above: Order Comment: Body Fluid Source: Other (Name in the Site) Body Fluid Site: RML Result Comment: The reference interval and other method performance specifications have not been established for this body fluid. The test result must be integrated into the clinical context for interpretation. Performed By: #### F LCCDIFF #### [facility] [address] [place] [address] Neutrophil, Fluid 42 % [facility] Comment on above: Order Comment: Body Fluid Source: Other (Name in the Site) Body Fluid Site: Rul Result Comment: The reference interval and other method performance specifications have not been established for this body fluid. The test result must be integrated into the clinical context for interpretation. Performed By: #### F LCCDIFF #### [facility] [address] [id number] [facility] RBC, Fluid 2329 [facility] Comment on above: Order Comment: Body Fluid Source: Other (Name in the Site) Body Fluid Site: RML Result Comment: The reference interval and other method performance specifications have not been established for this body fluid. The test result must be integrated into the clinical context for interpretation. Performed By: #### F LCCDIFF #### [facility] [address] [id number] [facility] RBC, Fluid 2399 [facility] Comment on above: Order Comment: Body Fluid Source: Other (Name in the Site) Body Fluid Site: Rul Result Comment: The reference interval and other method performance specifications have not been established for this body fluid. The test result must be integrated into the clinical context for interpretation. Performed By: #### F LCCDIFF #### [facility] [address] TNC, Body Fluid 163 [facility] Comment on above: Order Comment: Body Fluid Source: Other (Name in the Site) Body Fluid Site: RML Result Comment: The reference interval and other method performance specifications have not been established for this body fluid. The test result must be integrated into the clinical context for interpretation. Performed By: #### F LCCDIFF #### [facility] [address] [place] [address] TNC, Body Fluid 352 Normal [facility] Comment on above: Order Comment: Body Fluid Source: Other (Name in the Site) Body Fluid Site: Rul Result Comment: The reference interval and other method performance specifications have not been established for this body fluid. The test result must be integrated into the clinical context for interpretation. Performed By: #### F LCCDIFF #### [facility] [address] [place] [address] Cells Counted Total [#] in B fredy fluidOrdered By: Dayanna Lobo on 01-22-2024 Cells Counted Total (Body fld) [#] 163 mm^3 [facility] Comment on above: The reference interv al and other method performance specifications have not been established for this body fluid. The test result must be integrated into the clinical context for interpretation. Color of Spun Body fluidOrde red By: Dayanna Lobo on 01-22-2024 Color (Spun body fld) Straw [facility] Comment on above: The reference interv al and other method performance specifications have not been established for this body fluid. The test result must be integrated into the clinical context for interpretation. Determination of appearance of body fluidOrdered By: Dayanna Lobo on 01-22-2024 Appearance (Body fld) Hazy [facility] Comment on above: The reference interv al and other method performance specifications have not been established for this body fluid. The test result must be integrated into the clinical context for interpretation. Erythrocytes [#/volume] in B fredy fluid by Automated countOrdered By: Dayanna Lobo on 01-22-2024 RBC Auto (Body fld) [#/Vol] 2329 mm^3 [facility] Comment on above: The reference interv al and other method performance specifications have not been established for this body fluid. The test result must be integrated into the clinical context for interpretation. Evaluation of color of body fluidOrdered By: Dayanna Lobo on 01-22-2024 Color (Body fld) Straw [facility] Comment on above: The reference interv al and other method performance specifications have not been established for this body fluid. The test result must be integrated into the clinical context for interpretation. Alex 01-22-2024 L Specimen: Received: 01/23/24 Status: SOUT Req Num: [id number] Spec Type: Cytology Subm Dr: Dayanna Lobo DO Tissues: A BRONWASH (BRONCH) B BRONWASH (R UPPER LOBE) C BRONWASH (R MIDDLE LOBE) Procedures: HE/6, Gross/Micro L4/3, Cyto Prepstain/3, PAPSTN/3 Age/ Patient Sex Location Account Attending Physician Pilo Caban 78/F LABE[facility] [id number] Dayanna Lobo DO SPEC NUM: BC RECD: 01/23/24 STATUS: CLAUDIA REQ NUM: [id number] MARK: 01/22/24 DR: Dayanna Lobo DO ENTERED: 01/23/24 [facility] DR: Tessa,Lab SPEC TYPE: Cytology DEPT: [facility] ENTERED BY: [id number] RECV BY: [id number] ORDERED: HE/6, Gross/Micro L4/3, Cyto Prepstain/3, PAPSTN/3 [...] 1 cell blocks are prepared. (CC/nh) Specimen: [id number] Received: 01/23/24 Status: CLAUDIA Carter Num: [id number] Spec Type: Cytology Subm Dr: Dayanna Lobo DO Tissues: A BRONWASH (BRONCH) B BRONWASH (R UPPER LOBE) C BRONWASH (R MIDDLE LOBE) Procedures: HE/6, Gross/Micro L4/3, Cyto Prepstain/3, PAPSTN/3 Patient: Pilo Caban [id number] (Continued) Specimen: [id number] Received: 01/23/24 (Continued) Gross Description (Continued) Signed (signature on file) Nitesh Chambers MD 01/24/24 1406 Specimen: [id number] Received: 01/23/24 Status: CLAUDIA Carter Num: [id number] Spec Type: Cytology Subm Dr: Dayanna Lobo DO Tissues: A BRONWASH (BRONCH) B BRONWASH (R UPPER LOBE) C BRONWASH (R MIDDLE LOBE) Procedures: HE/6, Gross/Micro L4/3, Cyto Prepstain/3, PAPSTN/3 Patient: ArshPilo M [id number] (Continued) Specimen: [id number] Received: 01/23/24 (Continued) Gross Description (Continued) C. Received fresh labeled with the patient's name, date of and R upper lobe lavage is 5 ml rico cloudy unfixed fluid. 1 Thin Prep slides are prepared. 1 cell blocks are prepared. (CC/nh) Specimen: [id number] Received: 01/23/24-1127 Status: CLAUDIA Carter Num: [id number] Spec Type: Cytology Subm Dr: Dayanna Lobo DO Tissues: A BRONWASH (BRONCH) B BRONWASH (R UPPER LOBE) C BRONWASH (R MIDDLE LOBE) Procedures: HE/6, Gross/Micro L4/3, Cyto Prepstain/3, PAPSTN/3 Patient: Pilo Caban [id number] (Continued) Signed (signature on file) Nitesh Chambers MD 01/24/24 1406 Normal [facility] Manual body fluid eosinophil s/100 leukocytesOrdered By: Dayanna Lobo on 01-22-2024 Eosinophils/100 WBC Manual cnt (Body fld) 2 /100{WBC} 0-3 [facility] Manual body fluid lymphocyte s/100 leukocytesOrdered By: Dayanna Lobo on 01-22-2024 Lymphocytes/100 WBC Manual cnt (Body fld) 13 % [facility] Comment on above: The reference interv al and other method performance specifications have not been established for this body fluid. The test result must be integrated into the clinical context for interpretation. Neutrophils/100 WBC Manual c nt (Body fld)Ordered By: Dayanna Lobo on 01-22-2024 Neutrophils/100 WBC (Body fld) 41 % [facility] Comment on above: The reference interv al and other method performance specifications have not been established for this body fluid. The test result must be integrated into the clinical context for interpretation. A. flavus Ab Immune diff Ql (S)on 01-01-2024 Aspergillus flavus Antibody Negative Neg:<1:1 [facility] A. niger IgE Qn (S)on 2023 Aspergillus niger Antibody Negative Neg:<1:1 [facility] Comment on above: Performed at: [facility] [address] [id number] Director: Skylar Ortega MD, Phone: [phone] Performed at: [facility] [id number] Director: Skylar Ortega MD, Phone: [phone] Adenosine monophosphate.cycl ic [Moles/Vol]on 01-01-2024 Cyclic Citrullinated Peptid IgG/IgA 0 units 0-19 [facility] Comment on above: Negative <20 Weak po sitive 20 - 39 Moderate positive 40 - 59 Strong positive >59Performed at: [facility] [place] [id number] Director: García Salcedo PhD, Phone: [phone] Negative <20 Weak po sitive 20 - 39 Moderate positive 40 - 59 Strong positive >59Performed at: [facility] [place] [id number] Director: García Salcedo PhD, Phone: [phone] Atypical perinuclear antineu trophil cytoplasmic antibodies measurementon 01-01-2024 Neutrophil cytoplasmic Ab.perinuclear.atypic al IF (S) [Titer] <1:20 titer Neg:<1:20 [facility] Comment on above: Serum is slightly he molyzedThe atypical pANCA pattern has been observed in asignificant percentage of patients with ulcerative colitis,primary sclerosing cholangitis and autoimmune hepatitis.Performed at: [facility] [employer] [facility] [id number] Director: Skylar Ortega MD, Phone: [phone] at: [facility] [id number] Director: García Salcedo PhD, Phone: [phone] Cefuroxime free [Mass/Vol]on 01-01-2024 Anti-Nuclear Antibody Profile Negative Negative [facility] Comment on above: Performed at: [facility] [address] [id number] Director: García Salcedo PhD, Phone: [phone] Performed at: [facility] [address] [id number] Director: García Salcedo PhD, Phone: [phone] Performed at: [facility] [address] [id number] Director: García Salcedo PhD, Phone: [phone] Performed at: [facility] [address] [id number] Director: García Salcedo PhD, Phone: [phone] H. capsulatum Ab CF Ql (S)on 01-01-2024 Histoplasma Mycelial Ab (Comp Fix) Negative Neg:<1:2 [facility] Histoplasma Yeast Ab (Comp Fix) Negative Neg:<1:2 [facility] Comment on above: Performed at: [facility] [address] [id number] Director: Skylar Ortega MD, Phone: [phone] Performed at: [facility] [address] [id number] Director: Skylar Ortega MD, Phone: [phone] Performed at: [facility] [address] [id number] Director: Skylar Ortega MD, Phone: [phone] Laboratory - Hematology and Cell countson 01-01-2024 ESR (Bld) [Velocity] 25 mm/h <=30 [facility] Myeloperoxidase Ab [Units/vo lume] in Serum by Immunoassayon 01-01-2024 Myeloperoxidase Ab IA Qn (S) <0.2 units 0.0-0.9 [facility] No Panel Informationon 12-31 Histoplasma Galactomannan Antigen Negative <0.5 ng/mL [facility] Comment on above: This test was develo ped and its performance characteristicsdetermined by [facility]. It has not been cleared orapproved by the Food and Drug Administration.Performed at: [facility] [place] [address], [place] [id number] Director: Lori Green MD, Phone: [phone] Aspergillus fumigatus Antibody Negative Neg:<1:1 [facility] Blastomyces dermatitidis Antibody Negative Neg:<1:1 [facility] Comment on above: Performed at: - [facility] [address] [id number] Director: Skylar Ortega MD, Phone: [phone] C-Reactive Protein, Quantitative 1.37 mg/dL <=0.50 [facility] Perinuclear ANCA (p-ANCA) Antibody <1:20 titer Neg:<1:20 [facility] Comment on above: Serum is slightly he molyzedThe presence of positive fluorescence exhibiting P-ANCA orC-ANCA patterns alone is not specific for the diagnosis ofWegener's Granulomatosis (WG) or microscopic polyangiitis.Decisions about treatment should not be based solely onANCA IFA results. The International ANCA Group Consensusrecommends follow up testing of positive sera with both LA-3 and MPO-ANCA enzyme immunoassays. As many as 5% serumsamples are positive only by EIA. Ref. AM J Clin Eglwok1758;111:507-513. Proteinase 3 Ab [Units/volum e] in Serum by Immunoassayon 01-01-2024 Proteinase 3 Ab IA Qn (S) <0.2 units 0.0-0.9 [facility] SCL-70 extractable nuclear A b IA Qn (S)on 01-01-2024 Scl-70 (Scleroderma) Antibody <0.2 AI 0.0-0.9 [facility] Serum angiotensin converting enzyme (MOJGAN) measurementon 01-01-2024 Angiotensin converting enzyme [Catalytic activity/Vol] 63 U/L 14-82 [facility] Comment on above: Performed at: [email or web address] [place], [place] [id number] Director: García Salcedo PhD, Phone: [phone] Serum classic neutrophil cyt oplasmic antibody titer by immunofluorescenceon 01-01-2024 Neutrophil cytoplasmic Ab.classic IF (S) [Titer] <1:20 titer Neg:<1:20 [facility] Comment on above: Serum is slightly he molyzed Serum or plasma rheumatoid f actor measurement (units/volume)on 01-01-2024 Rheumatoid factor Qn 10.3 [IU]/mL <14.0 [facility] Comment on above: Performed at: [email or web address] [place], [place] [id number] Director: García Salcedo PhD, Phone: [phone] CT CARDIAC SCORINGon 023 CT CARDIAC SCORING [...] STRUCTURES ARE THE SOLE RESPONSIBILITY OF THE COMMUNITY ORGANIZATION DIRECTOR SUBMITTING THE ORIGINAL REPORT (NOT THIS ADDENDUM) Electronically signed by: SUKHJINDER MOONEY MD Addendum Ends Patient Name: PILO CABAN STUDY: CT CARDIAC SCORING; 03/24/2023 10:58 am INDICATION: htn, hyperlipedmia E78.5: Hyperlipidemia R07.89: Chest tightness. COMPARISON: None. ACCESSION NUMBER(S): [id number] ORDERING CLINICIAN: BROOKS CASTRO TECHNIQUE: Using prospective [...] calcuate using link below https://www.link-nhlbi.org /MESACHDRisk/MesaRiskScore /RiskScore.aspx Kirsten olvera al. JACC 2015 (http://dx.doi.org/10.1016 /j.j acc.2015.08.035) Reading Backroom Associate: Dr. Valerio Morris, Date: 03/24/2023 11:23 am Electronically signed by: SUKHJINDER MOONEY MD Normal [facility] CT Cardiac Scoringon 023 CT Cardiac Scoring Normal [facility] [address] DO Work Phone: Tobacco Screening.on 023 Tobacco use status [facility] b) No [facility] [address] DO Work Phone: [facility] CARDIAC STRESS/REST INJE CTIONon 03-01-2023 [facility] CARDIAC STRESS/REST INJECTION Patient Name: PILO CABAN STUDY: MYOCARDIAL PERFUSION STRESS TEST WITH EXERCISE CONVERTED TO LEXISCAN Performing facility: [facility], [address] [place] [address], [address], [address] Provider: Brooks Castro MD, FACC PCP: Dr. Ellis Tomlin Supervising provider: Haley Osullivan MD, FACC INDICATION: Dyspnea Chest tightness HISTORY: Gender: F; Age: 77 y/o ; Height: 0 cm; Weight: 0 kg. Chest Pain; High Cholesterol; SOB; Denies smoking. COMPARISON: No comparison. ACCESSION NUMBER(S): [id number]; [id number]; [id number] ORDERING CLINICIAN: BROOKS CASTRO TECHNIQUE: ONE DAY [...] Electronically signed by: HALEY OSULLIVAN MD Normal [facility] No Panel Informationon 03-01 Normal [facility] [address] DO Work Phone: LIPID PROFILEon 02-27-2023 CHOL-HDL RATIO NORM SEE BELOW Normal [facility] Comment on above: Result Comment: 3.3 - 4.4 LOW RISK 4.4 - 7.1 AVERAGE RISK 7.1 - 11.0 MODERATE RISK >11.0 HIGH RISK Performed By: #### L IPID #### [facility] [address] [place], [place] [address] Dr. Krystle Clement Cholesterol [Mass/Vol] 211 mg/dL Critically high <=200 [facility] Comment on above: Performed By: #### L IPID #### [facility] [address] [place], [place] [address] Dr. Krystle Clement Cholesterol in HDL [Mass/Vol] 52 mg/dL Normal 40-60 [facility] Comment on above: Performed By: #### L IPID #### [facility] [address] [address] [address] Krystle Clement Cholesterol in LDL [Mass/Vol] 143.0 mg/dL Normal [facility] Comment on above: Performed By: #### L IPID #### [facility] [id number] Krystle Clement Cholesterol.total/Cho lesterol in HDL [Mass ratio] 4.1 {ratio} Normal [facility] Comment on above: Performed By: #### L IPID #### [facility] [address] [address] [address] Krystle Clement HDL NORMAL > or = 60 mg/dl - LO W CARDIOVASCULAR RISK <40 mg/dl - HIGH CARDIOVASCULAR RISK Normal [facility] Comment on above: Performed By: #### L IPID #### [facility] [address] [place] [address] Dr. Krystle Clement LDL CALC NORMAL SEE BELOW Normal [facility] Comment on above: Result Comment: <100 mg/dl OPTIMAL 100 - 129 mg/dl NEAR OR ABOVE OPTIMAL 130 - 159 mg/dl BORDERLINE HIGH 160 - 189 mg/dl HIGH >190 mg/dl VERY HIGH Performed By: #### L IPID #### [facility] [address] [place] [address] Dr. Krystle Clement Triglyceride [Mass/Vol] 80 mg/dL Normal <=150 [facility] Comment on above: Performed By: #### L IPID #### [facility] [address] [place] [address] Dr. Krystle Clement VLDL CALC 16.0 mg/dL Normal [facility] Comment on above: Performed By: #### L IPID #### [facility] [address] [place], [place] [id number] Dr. Krystle Clement Office Visit (Cardiology)on 02-13-2023 [...] Order; Status:Hold For - Scheduling,Retrospective Authorization; Requested for:[id number]; Radiologist to Determine Optimal Study : Y What are the patient's signs and symptoms? : dyspnea chest tightness Chest tightness, Dyspnea, Hyperlipidemia Lipid Panel; Status:Active - Retrospective Authorization; Requested for:[id number]; Class 1 obesity with body mass index (BMI) of 30.0 to 30.9 in adult Healthy Weight Tips; Status:Complete - Retrospective Authorization; Done: [id number] Some eating tips that can help you lose weight.; Status:Complete - Retrospective Authorization; Done: [id number] Dyspnea IO EKG Electrocardiogram- 12 Lead; Status:Complete; Done: [id number] SocHx: Never a smoker Tobacco Use Screening; Status:Complete; Done: [id number] Tobacco Use Screening; Status:Complete; Done: [id number] Patient Instructions Please bring all medicines, vitamins, [...] times, but not consistently, and that the acoustical installer felt that her shortness of breath is [...] echocardiogram that was done on 01/16/2023 at [facility]. Assessment: 1. 77-year-old with exertional shortness [...] long hist (more content not included)... Normal [employer] Tobacco Screening.on 023 Adult depression screening assessment No [facility] [address] DO Work Phone: Fall risk assessment a) No falls within the last year [facility] [address] DO Work Phone: Tobacco use status [facility] b) No [place] [facility] y 250 DO Work Phone: ECHOCARDIO M/2D COMPLETEon 0 01-16-2023 ECHOCARDIO M/2D COMPLETE Patient: PILO CABAN Exam Date: 01/16/2023 : 1945 Gender:F Ordering : DR KATERINA TOMLIN M.D. Admission #: [id number] Family : Order #: [id number] CLICK HERE TO VIEW EXAM ECHOCARDIOGRAM REPORT [...] Stern M.D. on 01/16/2023 at 14:53 Normal [facility] B-Type Natriuretic Peptideon 01-04-2023 B-Type Natriuretic Peptide see note [facility] Other B-Type Natriuretic Peptide 582.0 pg/ml <=1,800.0 pg/ml [facility] Other BNPon 01-04-2023 Natriuretic peptide B (Bld) [Mass/Vol] 582.0 pg/mL Normal <=1,800.0 [facility] Comment on above: Performed By: #### B SLIP BRIDGE OPERATOR, BMP #### [facility] [address] [place] [address] Dr. Krystle Clement CBC AUTO DIFFon 01-04-2023 BASO # 0.0 103/ul Normal 0.0-0.1 [facility] Comment on above: Performed By: #### C BC #### [facility] [address] [place] [address] Dr. Krystle Clement Basophils/100 WBC (Bld) 0.7 % Normal 0.2-2.0 [facility] Comment on above: Performed By: #### C BC #### [facility] [address] [place] [address] Dr. Krystle Clement EO # 0.4 103/ul Normal 0.0-0.7 [facility] Comment on above: Performed By: #### C BC #### [facility] [address] [place] [address] Dr. Krystle Clement Eosinophils/100 WBC (Bld) 5.7 % Normal 0.9-7.0 [facility] Comment on above: Performed By: #### C BC #### [facility] [address] [place] [address] Dr. Krystle Clement Erythrocyte distribution width (RBC) [Ratio] 12.9 % Normal 11.0-15.0 [facility] Comment on above: Performed By: #### C BC #### [facility] [address] [place] [address] Dr. Krystle Clement Hematocrit (Bld) [Volume fraction] 44.3 % Normal 36.0-48.0 [facility] Comment on above: Performed By: #### C BC #### [facility] [address] [place] [address] Dr. Krystle Clement Hemoglobin (Bld) [Mass/Vol] 15.0 g/dL Normal 12.0-16.0 [facility] Comment on above: Performed By: #### C BC #### [facility] [address] [address] [address] Krystle Clement IG # 0.02 10e3/ul Normal 0.00-0.03 [facility] Comment on above: Performed By: #### C BC #### [facility] [address] [place] [address] Dr. Krystle Clement IG % 0.3 % Normal 0.0-0.5 [facility] Comment on above: Performed By: #### C BC #### [facility] [address] [place] [address] Dr. Krystle Clement LYMPH # 1.1 103/ul Critically low 1.2-3.8 [facility] Comment on above: Performed By: #### C BC #### [facility] [address] [place] [address] Dr. Krystle Clement Lymphocytes/100 WBC (Bld) 18.1 % Critically low 20.5-60.0 [facility] Comment on above: Performed By: #### C BC #### [facility] [address] [place] [address] Dr. Krystle Clement MANUAL DIFF REQ NO Normal [facility] Comment on above: Performed By: #### C BC #### [facility] [address] [place] [address] Dr. Krystle Clement MCH (RBC) [Entitic mass] 30.9 pg Normal 26.7-34.0 [facility] Comment on above: Performed By: #### C BC #### [facility] [address] [place] [address] Dr. Krystle Clement MCHC (RBC) [Mass/Vol] 33.9 g/dL Normal 29.9-35.2 [facility] Comment on above: Performed By: #### C BC #### [facility] [address] [place] [address] Dr. Krystle Clement MCV (RBC) [Entitic vol] 91.3 fL Normal 81.0-99.0 [facility] Comment on above: Performed By: #### C BC #### [facility] [address] [place] [address] Dr. Krystle Clement MONO # 0.7 103/ul Normal 0.3-0.8 [facility] Comment on above: Performed By: #### C BC #### [facility] [address] [place] [address] Dr. Krystle Clement Monocytes/100 WBC (Bld) 11.7 % Normal 1.7-12.0 [facility] Comment on above: Performed By: #### C BC #### [facility] [address] [place] [address] Dr. Krystle Clement NEUT # 3.9 103/ul Normal 1.4-6.5 [facility] Comment on above: Performed By: #### C BC #### [facility] [address] [place] [address] Dr. Krystle Clement Neutrophils/100 WBC (Bld) 63.5 % Normal 43.0-75.0 [facility] Comment on above: Performed By: #### C BC #### [facility] [address] [place] [address] Dr. Krystle Clement Platelet mean volume (Bld) [Entitic vol] 8.8 fL Critically low 9.5-13.5 [facility] Comment on above: Performed By: #### C BC #### [facility] [address] [place] [address] Dr. Krystle Clement PLT 232 103/ul Normal 150-450 [facility] Comment on above: Performed By: #### C BC #### [facility] [address] [place] [address] Dr. Krystle Clement RBC 4.85 106/ul Normal 4.20-5.40 [facility] Comment on above: Performed By: #### C BC #### [facility] [address] [place] [address] Dr. Krystle Clement WBC 6.1 103/ul Normal 4.0-11.0 [facility] Comment on above: Performed By: #### C BC #### [facility] [address] [place] [address] Dr. Krsytle Clement PROF CHEM 8 (BAS METB)on Anion gap [Moles/Vol] 11.6 mmol/L Normal Th [facility] Comment on above: Performed By: #### B SLIP BRIDGE OPERATOR, BMP #### [facility] [address] [place] [address] Dr. Krystle Clement Calcium [Mass/Vol] 9.5 mg/dL Normal 8.5-10.1 [facility] Comment on above: Performed By: #### B SLIP BRIDGE OPERATOR, BMP #### [facility] [address] [address] [address] Krystle Clement Chloride [Moles/Vol] 110 mmol/L Critically high 98-107 [facility] Comment on above: Performed By: #### B SLIP BRIDGE OPERATOR, BMP #### [facility] [address] [place] [address] Dr. Krystle Clement CO2 [Moles/Vol] 29.7 mmol/L Normal 21.0-32.0 [facility] Comment on above: Performed By: #### B SLIP BRIDGE OPERATOR, BMP #### [facility] [address] [place] [address] Dr. Krystle Clement Creatinine [Mass/Vol] 1.11 mg/dL Critically high 0.55-1.02 [facility] Comment on above: Performed By: #### B SLIP BRIDGE OPERATOR, BMP #### [facility] [address] [place] [address] Dr. Krystle Clement EGFR-AF BULGARIAN 58 mL/min/1.73m2 Critically low >=60 [facility] Comment on above: Performed By: #### B SLIP BRIDGE OPERATOR, BMP #### [facility] [address] [place] [address] Dr. Krystle Clement EGFR-NON AF BULGARIAN 48 mL/min/1.73m2 Critically low >=60 [facility] Comment on above: Performed By: #### B SLIP BRIDGE OPERATOR, BMP #### [facility] [address] [place] [address] Dr. Krystle Clement Glucose [Mass/Vol] 77 mg/dL Normal 74-106 [facility] Comment on above: Performed By: #### B SLIP BRIDGE OPERATOR, BMP #### [facility] [address] [address] [address] Krystle Clement Potassium [Moles/Vol] 4.3 mmol/L Normal 3.5-5.1 [facility] Comment on above: Performed By: #### B SLIP BRIDGE OPERATOR, BMP #### [facility] [address] [address] [address] Krystle Clement Sodium [Moles/Vol] 147 mmol/L Critically high 136-145 [facility] Comment on above: Performed By: #### B SLIP BRIDGE OPERATOR, BMP #### [facility] [address] [address] [address] Krystle Clement Urea nitrogen [Mass/Vol] 16.0 mg/dL Normal 7.0-18.0 [facility] Comment on above: Performed By: #### B SLIP BRIDGE OPERATOR, BMP #### [facility] [address] [place] [address] Dr. Krystle Clement Urea nitrogen/Creatinine [Mass ratio] 14.4 mg/mg Normal [facility] Comment on above: Performed By: #### B SLIP BRIDGE OPERATOR, BMP #### [facility] [address] [place] [address] CHEST WO CONon [...] by: BARBARA CHO Date: 2022-11-03 15:55 Normal [facility] MAMM SCREEN 3D ITALIA CADon 11-03-2022 MG MAMM SCREEN 3D ITALIA CAD Patient: PILO CABAN Exam Date: 11/03/2022 : 1945 Gender:F Ordering : DR KATERINA TOMLIN M.D. Admission #: [id number] Family : Order #: [id number] CLICK HERE TO VIEW EXAM RADIOLOGY REPORT PROCEDURE: MAMMOGRAM SCREENING 3D BILATERAL CAD COMPARISON: MAMM SCREEN ITALIA W CAD, 12/02/2019. MG MAMM SCREEN 3D ITALIA CAD, 10/04/2021. INDICATIONS: Screening mammography Calculator Name NCI Breast Cancer Risk Assessment Tool 5 Year Breast Cancer Risk 3.70% Lifetime Breast Cancer Risk 7.90% Personal Breast Cancer No Personal Ovarian Cancer No Treatments None Family Cancers Mother with breast cancer at age 58. LOCATION: [facility] BREAST COMPOSITION: Scattered areas fibroglandular density. [...] Cho MD on 11/03/2022 at 15:57 Normal [facility] CT CHEST WO CONon 03-10-2022 [...] by: YFN SELF Date: 2022-03-10 10:46 Normal [facility] Vital Signs Date Time Vital Sign Value Performing Clinician Facility 12-29-2023 11:030500 Body height 162.56 cm MD Katerina Tomlin Work Phone: [facility] 12-29-2023 11:03-0500 Body mass index (BMI) [Ratio] 28 kg/m2 MD Katerina Tomlin Work Phone: [facility] 12-29-2023 11:03050 Body weight 74.16 kg MD Katerina Tomlin Work Phone: [facility] 12-29-2023 11:03-0500 Diastolic blood pressure 90 mm[Hg] MD Katerina Tomlin Work Phone: [facility] 12-29-2023 11:03-0500 Heart rate 94 /min MD Katerina Tomlin Work Phone: [facility] 12-29-2023 11:03-0500 Systolic blood pressure 139 mm[Hg] MD Katerina Tomlin Work Phone: [facility] 04-07-2023 13:30-0400 Body height 162.56 cm Katerina Tomlin Other [facility] [employer] Other 04-07-2023 13:30-0400 Body mass index (BMI) [Ratio] 29.69 kg/m2 Katerina Tomlin Other [facility] [employer] Other 04-07-2023 13:30-0400 Body weight 78.47 kg Katerina Tomlin Other [facility] [employer] Other 04-07-2023 13:30-0400 Diastolic blood pressure 76 mm[Hg] Katerina Tomlin Other [facility] [employer] Other 04-07-2023 13:30-0400 Systolic blood pressure 161 mm[Hg] Katerina Tomlin Other [place] [employer] Other 03-20-2023 16:02-0400 Diastolic blood pressure 82 mm[Hg] Katerina Tomlin Work Phone: [facility] DO Work Phone: 03-20-2023 16:02-0400 Diastolic blood pressure 80 mm[Hg] Katerina Tomlin Work Phone: [facility] [employer] DO Work Phone: 03-20-2023 16:02-0400 Systolic blood pressure 138 mm[Hg] Katerina Tomlin Work Phone: [facility] [employer] 250 DO Work Phone: 03-20-2023 15:32-0400 Body height 160.02 cm Katerina Tomlin Work Phone: [facility] 250 DO Work Phone: 03-20-2023 15:32-0400 Body mass index (BMI) [Ratio] 30.47 kg/m2 Katerina Tomlin Work Phone: [facility] 250 DO Work Phone: 03-20-2023 15:32-0400 Body surface area Derived from formula 1.81 m2 Katerina Tomlin Work Phone: [facility] 250 DO Work Phone: 03-20-2023 15:32-0400 Body weight 78.02 kg Katerina Tomlin Work Phone: [facility] 250 DO Work Phone: 03-20-2023 15:32-0400 Diastolic blood pressure 86 mm[Hg] Katerina Tomlin Work Phone: [facility] 250 DO Work Phone: 03-20-2023 15:32-0400 Heart rate 74 /min Katerina Tomlin Work Phone: [facility] 250 DO Work Phone: 03-20-2023 15:32-0400 Systolic blood pressure 144 mm[Hg] Katerina Tomlin Work Phone: [facility] 250 DO Work Phone: 02-27-2023 14:47-0400 143 1 Katerina Tomlin Work Phone: [facility] 250 DO Work Phone: Comment on above: [employer] 02-13-2023 09:36-0400 Diastolic blood pressure 70 mm[Hg] Katerina Tomlin Work Phone: [facility] 250 DO Work Phone: 02-13-2023 09:36-0400 Systolic blood pressure 138 mm[Hg] Katerina Tomlin Work Phone: [facility] 250 DO Work Phone: 02-13-2023 09:35-0400 Body height 160.02 cm Katerina Tomlin Work Phone: [facility] 250 DO Work Phone: 02-13-2023 09:35-0400 Body mass index (BMI) [Ratio] 30.65 kg/m2 Katerina Tomlin Work Phone: [facility] 250 DO Work Phone: 02-13-2023 09:35-0400 Body surface area Derived from formula 1.82 m2 Katerina Tomlin Work Phone: [facility] 250 DO Work Phone: 02-13-2023 09:35-0400 Body weight 78.47 kg Katerina Tomlin Work Phone: [facility] 250 DO Work Phone: 02-13-2023 09:35-0400 Diastolic blood pressure 72 mm[Hg] Katerina Tomlin Work Phone: [facility] 250 DO Work Phone: 02-13-2023 09:35-0400 Heart rate 63 /min Katerina Tomlin Work Phone: [facility] 250 DO Work Phone: 02-13-2023 09:35-0400 Systolic blood pressure 130 mm[Hg] Katerina Tomlin Work Phone: [facility] 250 DO Work Phone: 01-02-2023 09:30-0500 Body height 162.56 cm Katerina Tomlin Other [facility] [employer] Other 01-02-2023 09:30-0500 Body mass index (BMI) [Ratio] 29.52 kg/m2 Katerina Tomlin Other [facility] Other 01-02-2023 09:30-0500 Body weight 78.02 kg Katerina Tomlin Other [facility] Other 01-02-2023 09:30-0500 Diastolic blood pressure 70 mm[Hg] Katerina Tomlin Other [facility] Other 01-02-2023 09:30-0500 SaO2% (BldA) [Mass fraction] 98 % Katerina Tomlin Other [facility] Other 01-02-2023 09:30-0500 Systolic blood pressure 142 mm[Hg] Katerina Tomlin Other [facility] Other Encounters Encounter Date Encounter Type Care Provider Facility Start: 01-22-2024 End: 01-22-2024 ambulatory [facility] Facility:[facility] Start: 01-22-2024 End: 01-22-2024 ambulatory MD Katerina Tomlin Work Phone: [facility] Work Phone: Start: 01-22-2024 End: 01-22-2024 Departed Referred MD Katerina Tomlin Work Phone: [facility] Start: 01-01-2024 Non-patient / Non-visit MD Bettie Tomlin Work Phone: [facility] Work Phone: Start: 12-29-2023 End: 12-29-2023 Patient encounter procedure MD Katerina Tomlin Work Phone: [facility] Work Phone: Start: 11-28-2023 End: 11-28-2023 ambulatory CHOCO DUVAL Not Available Start: 10-03-2023 End: 10-03-2023 ambulatory CHOCO DUVAL Not Available Start: 04-07-2023 End: 04-07-2023 ambulatory Katerina Tomlin Other [facility] Other Start: 04-07-2023 Patient encounter procedure Katerina Tomlin [facility] Start: 03-28-2023 Chart Update Katerina Tomlin Work Phone: [facility] 250 DO Work Phone: Start: 03-24-2023 Chart Update Katerina Tomlin Work Phone: [facility] 250 DO Work Phone: Start: 03-24-2023 ambulatory Brooks Marquez Facility: [id number] Start: 03-02-2023 Chart Update Katerina Tomlin Work Phone: [facility] 250 DO Work Phone: Start: 03-01-2023 ambulatory Brooks Marquez Facility: [id number] Start: 02-27-2023 End: 02-28-2023 ambulatory [facility] Facility: Start: 02-14-2023 End: 02-14-2023 ambulatory Katerina Tomlin Other [facility] Other Start: 02-14-2023 Telephone encounter Katerina Tomlin [facility] Start: 02-13-2023 Office consultation new/estab patient 60 min Katerina Tomlin Work Phone: [facility] 250 DO Work Phone: Start: 02-13-2023 ambulatory MD BROOKS CASTRO Facilit y: Start: 01-18-[address] Katerina Tomlin Facility:[facility] Start: 01-17-2023 End: 01-17-2023 ambulatory Katerina Tomlin Other [facility] Other Start: 01-17-2023 Telephone encounter Katerina Tomlin [facility] Start: 01-16-2023 End: 01-17-[address] KATERINA TOMLIN Facility:[facility] Start: 01-05-2023 End: 01-05-2023 ambulatory Katerina Tomlin Other [facility] Other Start: 01-05-2023 Telephone encounter Katerina Tomlin [facility] Start: 01-04-2023 End: 01-05-[address] KATERINA TOMLIN Facility:[facility] Start: 01-02-2023 End: 01-02-2023 ambulatory Katerina Tomlin Other [facility] Other Start: 01-02-2023 Office outpatient vi sit 15 minutes Katerina Tomlin [facility] Start: 11-03-2022 End: 11-04-2022 ambulatory DAYANNA LOBO . Facility: Start: 03-10-2022 End: 03-11-2022 ambulatory DAYANNA LASHELL . Facility: Start: 10-17-2018 End: 10-17-2018 Patient encounter procedure EMILY Oleg YIN [facility] Procedures Date Procedure Procedure Detail Performing Clinician Appendectomy Katerina Tomlin Work Phone: section Katerina ochoa Work Phone: Colonoscopy Katerina Tomlin Work Phone: Tonsillectomy and adenoidectomy Katerina Tomlin Work Phone: Plan of Treatment Date Care Activity Detail Author Start: 03-20-2023 FUV, Provider: Brooks Castro, Status: Pen, Time: 3:30 PM FUV, Provider: Brooks Castro, Status: Pen, Time: 3:30 PM [facility] 250 DO Work Phone: Start: 03-01-2023 STRESS NUC, Provider : ARACELI CHERRYI NUCLEAR 01,[id number], Status: Pen, Time: 8:00 AM STRESS NUC, Provider: ARACELI CHERRYI NUCLEAR 01,[id number], Status: Pen, Time: 8:00 AM [facility] 250 DO Work Phone: Immunizations Immunization Date Immunization Notes Care Provider Lucila ferrari 10-25-2021 Pfizer-BioNTech COVI D-19 Vacc 30 MCG/0.3ML Intramuscular Suspension Katerina Tomlin Work Phone: [facility] 250 DO Work Phone: 03-25-2021 Pfizer-BioNTech COVI D-19 Vacc 30 MCG/0.3ML Intramuscular Suspension Katerina Tomlin Work Phone: [facility] 03-01-2021 Pfizer-BioNTech COVI D-19 Vacc 30 MCG/0.3ML Intramuscular Suspension Katerina Tomlin Work Phone: [facility] 10-25-2019 pneumococcal polysaccharide vaccine, 23 valent MD Katerina Tomlin Work Phone: [facility] 10-08-2016 influenza virus vacc ine, unspecified formulation MD Katerina Tomlin Work Phone: [facility] 10-06-2016 pneumococcal conjuga te vaccine, 13 valent MD Katerina Tomlin Work Phone: [facility] 04-09-2015 pneumococcal conjuga te vaccine, 13 valmp Tomlin Work Phone: [place] [address] DO Work Phone: 08-31-2008 pneumococcal polysaccharide vaccine, 23 valent Katerina Tomlin Work Phone: [place] [address] DO Work Phone: Payers Date Payer Category Payer Self-pay [id number] 1958 Medicare [id number] 2.1 [id number] 1958 Unknown [id number] 1945 Unknown [id number] 2.16. [id number] 1945 Unknown [id number] 2.16.84 [id number] 1945 Unknown [id number] 2.16.84 0.1.115519.3.579.2.593 1945 Unknown [id number] 2.16.84 0.1.676587.3.579.2.593 1945 Unknown [id number] 2.16.84 0.1.014466.3.579.2.593 1945 Unknown [id number] 2.16.84 0.1.929454.3.579.2.593 1945 Unknown [id number] 2.16.84 0.1.749260.3.579.2.593 1945 Unknown [id number] 2.16.84 0.1.863838.3.579.2.593 1945 Unknown [id number] 2.16.8 [id number] 1945 Unknown [id number] 2.16.8 [id number] 1945 Unknown [id number] 2.16.84 0.1.068560.3.579.2.1259 1945 Unknown [id number] 2.16.840 .1.792102.3.579.2.1259 Unknown Unknown [id number] Unknown [id number] 2.16.8 [id number] Social History Date Type Detail Facility Unknown if ever smoked [facility] Other Sex Assigned At Sex Assigned At Bir th [facility] Other Alcohol ingestion Alcohol ingestion [facility]No [facility] 250 DO Work Phone: Comment on above: couple weekly whiske y; coffee daily; Start: 1945 Sex Assigned At Female F [facility] Evaluation note 04-07-2023 Note Date & Type Note Facility 04-07-2023 Evaluation note Encounter Date Diagnosis Assessment Notes Mar, Inflamed seborrheic keratosis (ICD-10 - L82.0) cryotherapy on lesion [facility] Other Evaluation note 04-07-2023 Note Date & Type Note Facility 04-07-2023 Evaluation note Encounter Date Diagnosis Assessment Notes Mar, Inflamed seborrheic keratosis (ICD-10 - L82.0) cryotherapy on lesion. There is no tick bite. [facility] Other Evaluation note 01-17-2023 Note Date & Type Note Facility 01-17-2023 Evaluation note Encounter Date Diagnosis Assessment Notes Dec, Dyspnea, unspecified (ICD-10 - R06.00) Dec, Other abnormalities of breathing (ICD-10 - R06.89) Dec, Abnormal EKG (ICD-10 - R94.31) [facility] Other Evaluation note 01-02-2023 Note Date & Type Note Facility 01-02-2023 Evaluation note Encounter Date Diagnosis Assessment Notes Dec, Leg edema (ICD-10 - R60.0) Discussed differential including heart failure. Pt would like to get tests to have a cause for her ongoing symptoms. Dec, Dyspnea on exertion (ICD-10 - R06.09) PFT this week. Complete tests as ordered. Pt agrees. [facility] Other Chief complaint Narrative - Reported Note Date & Type Note Facility Chief complaint Narrative - Reported PILO CABAN is being seen for a consultation for. [facility] 250 DO Work Phone: Evaluation note Note Date & Type Note Facility Evaluation note No Information [facility] Other Evaluation note Note Date & Type Note Facility Evaluation note Diagnosis Onset Date Calcified lymph nodes acute Multiple pulmonary nodules a [facility] Work Phone: History general Narrative - [...] History T&A Hospitalization History SEE SURGICAL HX [facility] Other History of Present illness Narrative Note [...] times, but not consistently, and that the acoustical installer felt that her shortness of breath is [...] echocardiogram that was done on 01/16/2023 at [facility].Assessment:1. 77-year-old with exertional shortness of breath [...] call if further questions arise,Sincerely,Brooks Castro MD [place] [address] DO Work Phone: Summary Purpose Family History [...] 1 Abnormal EKG (R94.31 ) Referral Organization [facility] Referring Provider First Name Katerina Referring Provider Last Name Nabor Referring Provider Specialty Family [facility] Referred Organization [facility] Referred Provider Brandt Ramírez Referred Address [address] ,[place], [place],[address] Referred Provider Specialty Cardiology Referral Priority Routine General Notes Bindu Thomas 12:56:01 PM >received today, attachments made, notes locked, and referral faxed Additional Source Comments INFORMATION SOURCE (unrecogn ized section and content) DATE CREATED AUTHOR 10/20/2018 [facility] DATE CREATED AUTHOR AUTHOR'S ORGANIZ ATION 02/13/[address] [facility] [place] [facility] DATE CREATED AUTHOR AUTHOR'S ORGANIZ ATION 02/14/2023 [employer] DATE CREATED AUTHOR AUTHOR'S ORGANIZ ATION 03/03/2023 [facility] DATE CREATED AUTHOR AUTHOR'S ORGANIZ ATION 04/07/2023 [facility] DATE CREATED AUTHOR AUTHOR'S ORGANIZ ATION 11/29/2023 [place] [facility] EPIC DATE CREATED AUTHOR AUTHOR'S ORGANIZ ATION 01/26/2024 [facility] REASON FOR VISIT (unrecogniz ed section and [...] BE BASED ON THE PRIMARY CLINICAL RECORDS. [facility]. provides no warranty or guarantee of the accuracy or completeness of information in this document.
[2024-08-05 11:09] LABS: Bilirubin Urine NEGATIVE (NEGATIVE); Blood Urine NEGATIVE (NEGATIVE); Clarity Urine CLEAR (CLEAR); Color Urine LT. YELLOW (YELLOW); Glucose Urine UA NEGATIVE (NEGATIVE); Ketones Urine NEGATIVE (NEGATIVE); Leukocyte Esterase Urine NEGATIVE (NEGATIVE); Nitrite Urine NEGATIVE (NEGATIVE); Protein Urine NEGATIVE (NEG/TRACE); Specific Gravity Urine <=1.005 (1.005-1.025); Urobilinogen Urine 0.2 EU/dL (0.2-1.0)
[2024-08-05 11:15] LABS: Urine Microscopic Indicated NO
== END 2024-08-05 10:08 | disposition home or self-care (01) ==
LOC: LAB 10:09
PROVIDERS: PCP Family Medicine; Visit Provider Family Medicine
DX: R35.0 Frequency of micturition (principal)
CPT/HCPCS: 81003

== ENCOUNTER 2024-10-02 13:20 | Outpatient (OUT) | payer MEDICARE, OTHER, SELFPAY ==
--- OUTSIDE RECORDS SUMMARY | 2024-10-02 13:44 | XMS_ITS | CCD ---
Author Organization [facility] Care Team Providers Care Club Car Attendant Name Role Phone EMILY YIN Oleg Unavailable Unavailable Katerina Tomlin Unavailable Katerina [...] Unavailable NABOR, DR KATERINA Aparicio Admitting Unavailable OTMLIN, DR KATERINA Aparicio Attending Unavailable TOMLIN, DR [...] Attending Unavailable Dr. Katerina Tomlin Primary Care MD Katerina Phoenix Primary Care Provider [facility], DO [place] Attending Provider [facility], Dayanna Attending Unavailable [facility], Dayanna Admitting Unavailable Katerina Tomlin Primary Care Unavailable Unavailable Primary Care Provider UnavailBREANNA Yang Attending Unavailable BREANNA DUVAL Attending Unavailable BREANNA DUVAL Attending Unavailable Katerina Tomlin MD Primary Care Provider BROOKS CASTRO Attending Unavailable KATERINA TOMLIN Primary Care Unavailable Allergies Allergy Classification Reported Allergen(s) Allergy Type Date of Onset Reaction(s) Facility (11 sources) Iodine; Translations: [IODINE] Drug Allergy 11-03-2006 Rash [facility] [place] Repository Medications Current Medications Medication Drug Class(es) Dates Sig (Normalized) Sig (Original) ammonium lactate 120 mg/ml topical cream (3 sources) Start: 11-22-2022 ammonium lactate (Amlactin) 12 % cream APPLY TO ROUGH AREAS TOPICALLY DAILY 30 DAY(S) 11/22/2022 Active multivitamin tablet (1 source) take 1 tablet by mouth once daily multivitamin tablet Take 1 tablet by mouth once daily. Active Greenbriar (No Known Home Meds) (1 source) Start: 08-02-2024 Greenbriar (No Known Home Meds) Active August 02, 2024 12:00am triamcinolone acetonide 1 mg/ml topical cream (2 sources) Corticosteroid Start: 09-05-2024 triamcinolone (Kenalog) 0.1 % cream Indications: Other atopic dermatitis Apply topically 2 (two) times a day as needed (Rash) 60 g 11 09/05/2024 Active Start: 09-05-2024 triamcinolone (Kenalog) 0.1 % cream Indications: Other atopic dermatitis Apply topically 2 (two) times a day as needed (Rash) 60 g 11 09/05/2024 Active Completed/Discontinued Medications Medication Drug Class(es) Dates Sig (Normalized) Sig (Original) [id number] 200 actuat albuterol 0.09 mg/actuat metered dose inhaler (11 sources) beta2-Adrenergic Agonist Start: 12-27-2023 End: 08-02-2024 take 1 puff(s) by inhalation every four hours as needed Albuterol Sulfate Discontinued 1 PUFF INHALATION Every 4 hours December 27, 2023 1:00am August 02, 2024 10:38am [employer] puff as needed Inhalation every 4 hrs; Note: Source Status: Taking; Provider: Nabor Borges ( ) Start: 11-29-2022 take 2 puff(s) by mo uth every four hours as needed Ventolin HFA 108 (90 Base) MCG/ACT inhaler INHALE 2 PUFFS BY MOUTH EVERY 4 HOURS NEEDED FOR SHORTNESS OF BREATH 11/29/2022 Active take 1 puff(s) by in halation every four hours as needed Albuterol Sulfate HFA 108 (90 Base) MCG/ACT 1 puff as needed Inhalation every 4 hrs Active azithromycin 250 mg oral tablet (2 sources) Macrolide Antimicrobial Start: 12-27-2023 End: 12-29-2023 take 2 tablets by mouth once daily, [...] DO Active loratadine 10 mg oral tablet (6 sources) Start: 12-29-2023 End: 08-02-2024 take 1 tablet by mouth once daily Loratadine (Claritin) 10 mg tablet Discontinued 10 MG PO Daily December 29, 2023 1:00am August 02, 2024 10:38am take 1 tablet by mouth once michael y Loratadine 10 MG Oral Tablet TAKE 1 TABLET DAILY. Quantity: 0 Refills: 0 Ordered: 13-Feb-2023 DO Active Methylprednisolone (2 sources) Corticosteroid Start: 12-27-2023 End: 12-29-2023 Methylprednisolone Discontinued MG PO As Directed December 27, 2023 1:00am March 1st, 2024 12:16pm FreeTextSig: as directed Orally; Note: Source [...] Follow-up status; Translations: [Other specified counseling] Episodic Allergic reactions (2 sources) Atopic dermatitis; Translations: [Other atopic dermatitis] 09-05-2024 Chronic Chronic kidney disease (6 sources) Chronic kidney disease stage 3A ; Translations: [Chronic kidney disease, Stage III (moderate)] Onset: 09-09-2024 09-09-2024 Chronic Chronic kidney disease (2 sources) Chronic kidney disease; Translations: [Chronic kidney disease, stage 3a (Multi)] Onset: 09-09-2024 Disorders of lipid metabolism (13 sources) Hyperlipidemia; Translations: [Other and unspecified hyperlipidemia] Onset: 03-02-2023 Chronic E Codes: Natural/environment (2 sources) Insect bite - wound; Translations: [Bitten or stung by nonvenomous insect and other nonvenomous arthropods, initial encounter] 09-05-2024 Episodic Genitourinary symptoms and ill-defined conditions (2 sources) Increased frequency of urination; Translations: [Frequency of micturition] 08-02-2024 Episodic Nonspecific chest pain (12 sources) Tight chest; Translations: [Other chest pain] Onset: 02-27-2023 Episodic Other connective tissue disease (5 sources) Muscle pain; Translations: [Myalgia, unspecified site] Episodic Other connective tissue disease (1 source) Myalgia, unspecified site; Translations: [Myalgia] Episodic Other diseases of veins and lymphatics (2 sources) Calcified lymph nodes; Translations: [Other specified noninfective disorders of lymphatic vessels and lymph nodes] 01-09-2024 Chronic Other diseases of veins and lymphatics (1 source) Other specified noninfective disorders of lymphatic vessels and lymph nodes; Translations: [Other noninfectious disorders of lymphatic channels] 12-29-2023 Chronic Other infections; including parasitic (6 sources) Personal history of other infectious and parasitic diseases; Translations: [Personal history of COVID-19] Onset: 09-09-2024 09-09-2024 Episodic Other lower respiratory disease (10 sources) Dyspnea on exertion; Translations: [Other forms of dyspnea] Onset: 09-09-2024 09-09-2024 Episodic Other lower respiratory disease (11 sources) Dyspnea; Translations: [Shortness of breath] Onset: 01-04-2023 Episodic Other lower respiratory disease (7 sources) Multiple nodules of lung; Translations: [Other nonspecific abnormal finding of lung field] 01-09-2024 Episodic Other lower respiratory disease (6 sources) Lung field abnormal; Translations: [Other nonspecific abnormal finding of lung field] Episodic Other lower respiratory disease (4 sources) Other forms of dyspnea; Translations: [OTHER [...] Onset: 03-10-2022 Episodic Other lower respiratory disease (5 sources) Restrictive lung disease; Translations: [Other diseases of lung, not elsewhere classified] Onset: 09-09-2024 09-09-2024 Episodic Other lower respiratory disease (2 sources) Other disorders of lung; Translations: [Other disorders of lung] Onset: 09-09-2024 Episodic Other nutritional; endocrine; and metabolic disorders (4 sources) Obesity; Translations: [Obesity, unspecified] Chronic Other nutritional; endocrine; and metabolic disorders (3 sources) Overweight in adulthood with body mass index of 25 or more but less than 30; Translations: [Body mass index (BMI) 28.0-28.9, adult] Onset: 09-09-2024 09-09-2024 Episodic Other nutritional; endocrine; and metabolic disorders (1 source) Body mass index (BMI) 28.0-28.9, adult; Translations: [Body mass index (BMI) 28.0-28.9, adult] Onset: 09-09-2024 Episodic Other skin disorders (2 sources) Inflamed seborrheic keratosis Episodic Other skin disorders (2 sources) Actinic keratosis; Translations: [Actinic keratosis] 09-05-2024 Episodic Residual codes; unclassified (1 source) Kidney donor; Translations: [Kidney donor] Onset: 10-17-2018 Episodic Residual codes; unclassified (5 sources) Localized edema; Translations: [LOCALIZED EDEMA] Onset: 01-16-2023 Episodic Residual codes; unclassified (2 sources) Never smoked tobacco; Translations: [Other specified health status] Onset: 09-09-2024 09-09-2024 Episodic Residual codes; unclassified (2 sources) Other specified health status; Translations: [Other specified health status] Onset: 09-09-2024 Episodic Unclassified (1 source) Personal history of COVID-19; Translations: [Personal history of COVID-19] Onset: 09-09-2024 Past or Other Problems Problem Classification Problem [...] Never smoked tobacco; Translations: [Never a smoker] Unclassified (1 source) Onset: 09-09-2024 09-09-2024 Unclassified (1 source) Personal history of COVID-19; Translations: [Personal history of COVID-19] Onset: 09-09-2024 Results Test Name Value Interpretation Reference Range Facility ECG 12 Leadon 09-09-2024 Normal sinus rhythm, normal EKG. compared to the EKG from January 2023, inferior T wave abnormality has resolved [facility] Work Phone: No Panel Informationon 09-05 [facility] Estimated glomerular filtrat ion rate (GFR) non- Americanon 07-04-2024 GFR/1.73 sq M.predicted among non-blacks MDRD (S/P/Bld) [Vol rate/Area] 46 mL/min/{1.73_m2} Low >=60 [facility] Laboratory - Chemistry and C hemistry - challengeon 07-04-2024 Creatinine [Mass/Vol] 1.14 mg/dL High 0.55-1.02 [facility] GFR/1.73 sq M.predicted MDRD (S/P/Bld) [Vol rate/Area] 56 mL/min/{1.73_m2} Low >=60 [facility] Body fluid differential cell countOrdered By: Dayanna Lobo on 01-22-2024 Differential panel (Body fld) 44 % [facility] Comment on above: The reference interv al and other method performance specifications have not been established for this body fluid. The test result must be integrated into the clinical context for interpretation. Cell Count/Diff, Fluidon Appearance, Fluid Hazy Normal [facility] Comment on above: Order Comment: Body Fluid Source: Other (Name in the Site) Body Fluid Site: RML Result Comment: The reference interval and other method performance specifications have not been established for this body fluid. The test result must be integrated into the clinical context for interpretation. Performed By: #### F LCCDIFF #### [facility] [address] Order Comment: Body Fluid Source: Other [...] interpretation. Performed By: #### F LCCDIFF #### [address] Order Comment: Body Fluid Source: Other [...] interpretation. Performed By: #### F LCCDIFF #### [address] Order Comment: Body Fluid Source: Other (Name in the Site) Body Fluid Site: Rul Eosinophils, Fluid 2 /100{WBC} Normal 0-3 [facility] Comment on above: Order Comment: Body Fluid Source: Other (Name in the Site) Body Fluid Site: RML Result Comment: PERF ORMED BY: [place] [address] DRIVER CRISTHIAN REYEZ M.D. Performed By: #### F LCCDIFF #### [address] Order Comment: Body Fluid Source: Other (Name in the Site) Body Fluid Site: Rul Lymphocytes, Fluid 13 % Normal [facility] Comment on above: Order Comment: Body Fluid Source: Other (Name in the Site) Body Fluid Site: RML Result Comment: The reference interval and other method performance specifications have not been established for this body fluid. The test result must be integrated into the clinical context for interpretation. Performed By: #### F LCCDIFF #### [address] Lymphocytes, Fluid 11 % Normal [facility] Comment on above: Order Comment: Body Fluid Source: Other (Name in the Site) Body Fluid Site: Rul Result Comment: The reference interval and other method performance specifications have not been established for this body fluid. The test result must be integrated into the clinical context for interpretation. Performed By: #### F LCCDIFF #### [address] Monocytes/Macrophages , Fluid 44 % Normal [facility] Comment on above: Order Comment: Body Fluid Source: Other (Name in the Site) Body Fluid Site: RML Result Comment: The reference interval and other method performance specifications have not been established for this body fluid. The test result must be integrated into the clinical context for interpretation. Performed By: #### F LCCDIFF #### [address] Monocytes/Macrophages , Fluid 45 % [facility] Comment on above: Order Comment: Body Fluid Source: Other (Name in the Site) Body Fluid Site: Rul Result Comment: The reference interval and other method performance specifications have not been established for this body fluid. The test result must be integrated into the clinical context for interpretation. Performed By: #### F LCCDIFF #### [address] Neutrophil, Fluid 41 % Normal [facility] Comment on above: Order Comment: Body Fluid Source: Other (Name in the Site) Body Fluid Site: RML Result Comment: The reference interval and other method performance specifications have not been established for this body fluid. The test result must be integrated into the clinical context for interpretation. Performed By: #### F LCCDIFF #### [address] Neutrophil, Fluid 42 % Normal [facility] Comment on above: Order Comment: Body Fluid Source: Other (Name in the Site) Body Fluid Site: Rul Result Comment: The reference interval and other method performance specifications have not been established for this body fluid. The test result must be integrated into the clinical context for interpretation. Performed By: #### F LCCDIFF #### [place] [id number] [facility] RBC, Fluid 2329 Normal [facility] Comment on above: Order Comment: Body Fluid Source: Other (Name in the Site) Body Fluid Site: RML Result Comment: The reference interval and other method performance specifications have not been established for this body fluid. The test result must be integrated into the clinical context for interpretation. Performed By: #### F LCCDIFF #### [facility] [address] RBC, Fluid 2399 [facility] Comment on above: Order Comment: Body Fluid Source: Other (Name in the Site) Body Fluid Site: Rul Result Comment: The reference interval and other method performance specifications have not been established for this body fluid. The test result must be integrated into the clinical context for interpretation. Performed By: #### F LCCDIFF #### [facility] [address] TNC, Body Fluid 163 [facility] Comment on above: Order Comment: Body Fluid Source: Other (Name in the Site) Body Fluid Site: RML Result Comment: The reference interval and other method performance specifications have not been established for this body fluid. The test result must be integrated into the clinical context for interpretation. Performed By: #### F LCCDIFF #### [facility] [address] TNC, Body Fluid 352 [facility] Comment on above: Order Comment: Body Fluid Source: Other (Name in the Site) Body Fluid Site: Rul Result Comment: The reference interval and other method performance specifications have not been established for this body fluid. The test result must be integrated into the clinical context for interpretation. Performed By: #### F LCCDIFF #### [facility] [address] [place] [address] Cells Counted Total [#] in B fredy [...] on 01-22-2024 Color (Spun body fld) Straw [facility] Comment on above: The reference interv al and other method performance specifications have not been established for this body fluid. The test result must be integrated into the clinical context for interpretation. Determination of appearance of body fluidOrdered By: Dayanna Lobo on 01-22-2024 Appearance (Body fld) Hazy Fir [facility] Comment on above: The reference interv al [...] Lobo on 01-22-2024 Color (Body fld) Straw [facility] Comment on above: The reference interv al and other method performance specifications have not been established for this body fluid. The test result must be integrated into the clinical context for interpretation. Alex 01-22-2024 L Specimen: BC Received: 01/23/24 Status: CLAUDIA Carter Num: [id number] Spec Type: Cytology Subm Dr: Dayanna Lobo DO Tissues: A BRONWASH (BRONCH) B BRONWASH (R UPPER LOBE) C BRONWASH (R MIDDLE LOBE) Procedures: HE/6, Gross/Micro L4/3, Cyto Prepstain/3, PAPSTN/3 Age/ Patient Sex Location Account Attending Physician Pilo Caban 78/F LABELL [id number] Dayanna Lobo DO SPEC NUM: [id number] RECD: 01/23/24 STATUS: CLAUDIA CARTER NUM: [id number] MARK: 01/22/24- SUBM DR: Daaynna Lobo DO ENTERED: 01/23/24-[address]: Tessa,Lab SPEC TYPE: Cytology DEPT: JASON [facility] ENTERED BY: [id number] RECV BY: [id number] ORDERED: HE/6, Gross/Micro L4/3, Cyto Prepstain/3, PAPSTN/3 [...] BC24 Received: 01/23/24 Status: CLAUDIA Carter Num: [id number] Spec Type: Cytology Subm Dr: Dayanna Lobo DO Tissues: A BRONWASH (BRONCH) B BRONWASH (R UPPER LOBE) C BRONWASH (R MIDDLE LOBE) Procedures: HE/6, Gross/Micro L4/3, Cyto Prepstain/3, PAPSTN/3 Patient: Pilo Caban [id number] (Continued) Specimen: BC Received: 01/23/24 (Continued) Gross Description (Continued) Signed (signature on file) Nitesh Chambers MD 01/24/24 1406 Specimen: Received: 01/23/24 Status: CLAUDIA Carter Num: [id number] Spec Type: Cytology Subm Dr: Dayanna Lobo DO Tissues: A BRONWASH (BRONCH) B BRONWASH (R UPPER LOBE) C BRONWASH (R MIDDLE LOBE) Procedures: HE/6, Gross/Micro L4/3, Cyto Prepstain/3, PAPSTN/3 Patient: Pilo Caban [id number] (Continued) Specimen: Received: 01/23/24 (Continued) Gross Description (Continued) C. Received fresh labeled with the patient's name, date of and R upper lobe lavage is 5 ml rico cloudy unfixed fluid. 1 Thin Prep slides are prepared. 1 cell blocks are prepared. (CC/nh) Specimen: [id number] Received: 01/23/24 Status: CLAUDIA Carter Num: [id number] Spec Type: Cytology Subm Dr: Dayanna Lobo DO Tissues: A BRONWASH (BRONCH) B BRONWASH (R UPPER LOBE) C BRONWASH (R MIDDLE LOBE) Procedures: HE/6, Gross/Micro L4/3, Cyto Prepstain/3, PAPSTN/3 Patient: Pilo Caban [id number] (Continued) Signed (signature on file) Nitesh Chambers [...] [facility] Comment on above: Performed at: [employer] [address] [id number] Director: Skylar Ortega MD, Phone: [phone] Performed at: [employer] [address] [id number] Director: Skylar Ortega MD, Phone: [phone] Adenosine monophosphate.cycl ic [Moles/Vol]on 01-01-2024 Cyclic Citrullinated Peptid IgG/IgA 0 units 0-19 [facility] Comment on above: Negative <20 Weak po sitive 20 - 39 Moderate positive 40 - 59 Strong positive >59Performed at: - [facility] [id number] Director: García Salcedo PhD, Phone: [phone] Negative <20 Weak po sitive 20 - 39 Moderate positive 40 - 59 Strong positive >59Performed at: [employer] [address] [id number] Director: García Salcedo PhD, Phone: [phone] Atypical perinuclear antineu trophil cytoplasmic antibodies measurementon 01-01-2024 Neutrophil cytoplasmic Ab.perinuclear.atypic al IF (S) [Titer] <1:20 titer Neg:<1:20 [facility] Comment on above: Serum is slightly he molyzedThe atypical pANCA pattern has been observed in asignificant percentage of patients with ulcerative colitis,primary sclerosing cholangitis and autoimmune hepatitis.Performed at: [employer] [id number] Director: Skylar Ortega MD, Phone: [phone] at: [employer] [address] [id number] Director: García Salcedo PhD, Phone: [phone] Cefuroxime free [Mass/Vol]on 01-01-2024 Anti-Nuclear Antibody Profile Negative Negative [facility] Comment on above: Performed at: [facility] [address] [id number] Director: García Salcedo PhD, Phone: [phone] Performed at: [facility] [address] [id number] Director: García Salcedo PhD, Phone: [phone] Performed at: [facility] [address] [id number] Director: García Salcedo PhD, Phone: [phone] Performed at: [facility] [address] [id number] Director: García Salcedo PhD, Phone: [phone] H. capsulatum Ab CF Ql (S)on 01-01-2024 Histoplasma Mycelial Ab (Comp Fix) Negative Neg:<1:2 [facility] Histoplasma Yeast Ab (Comp Fix) Negative Neg:<1:2 [facility] Comment on above: Performed at: [employer] [address] [id number] Director: Skylar Ortega MD, Phone: [phone] Performed at: [employer] [facility] [address] [id number] Director: Skylar Ortega MD, Phone: [phone] Performed at: [employer] [facility] [address] [id number] Director: Skylar Ortega MD, Phone: [phone] Laboratory - Hematology and Cell countson 01-01-2024 ESR (Bld) [Velocity] 25 mm/h <=30 [facility] Myeloperoxidase Ab [Units/vo lume] in Serum by Immunoassayon 01-01-2024 Myeloperoxidase Ab IA Qn (S) <0.2 units 0.0-0.9 [facility] No Panel Informationon 12-31 Histoplasma Galactomannan Antigen Negative <0.5 ng/mL [facility] Comment on above: This test was develmao ped and its performance characteristicsdetermined by [facility]. It has not been cleared orapproved by the Food and Drug Administration.Performed at: [facility] [place] [address], [place] [id number] Director: Lori Green MD, Phone: [phone] Aspergillus fumigatus Antibody Negative Neg:<1:1 [facility] Blastomyces dermatitidis Antibody Negative Neg:<1:1 [facility] Comment on above: Performed at: [facility] [address] [id number] Director: Skylar Ortega MD, Phone: [phone] C-Reactive Protein, Quantitative 1.37 mg/dL <=0.50 [facility] [...] only by EIA. Ref. AM J Clin Usrnff0257;111:507-513. Proteinase 3 Ab [Units/volum e] in Serum by Immunoassayon 01-01-2024 Proteinase 3 Ab IA Qn (S) <0.2 units 0.0-0.9 [facility] SCL-70 extractable nuclear A b IA Qn (S)on 01-01-2024 Scl-70 (Scleroderma) Antibody <0.2 AI 0.0-0.9 [facility] Serum angiotensin converting enzyme (MOJGAN) measurementon 01-01-2024 Angiotensin converting enzyme [Catalytic activity/Vol] 63 U/L 14 [facility] Comment on above: Performed at: [facility] [address] [id number] Director: García Salcedo PhD, Phone: [phone] Serum classic neutrophil cyt oplasmic antibody titer by immunofluorescenceon 01-01-2024 Neutrophil cytoplasmic Ab.classic IF (S) [Titer] <1:20 titer Neg:<1:20 [facility] Comment on above: Serum is slightly he molyzed Serum or plasma rheumatoid f actor measurement (units/volume)on 01-01-2024 Rheumatoid factor Qn 10.3 [IU]/mL <14.0 [facility] Comment on above: Performed at: [facility] [address] [id number] Director: García Salcedo PhD, Phone: [phone] CT CARDIAC SCORINGon 023 CT CARDIAC SCORING [...] STRUCTURES ARE THE SOLE RESPONSIBILITY OF THE DECORATIVE GRE[employer] CUTTER SUBMITTING THE ORIGINAL REPORT (NOT THIS ADDENDUM) Electronically signed by: SUKHJINDER MOONEY MD Addendum Ends Patient Name: PILO CABAN STUDY: CT CARDIAC SCORING; 03/24/2023 10:58 am INDICATION: htn, hyperlipedmia E78.5: Hyperlipidemia R07.89: Chest tightness. COMPARISON: None. ACCESSION NUMBER(S): [id number] ORDERING CLINICIAN: BROOKS CASTRO TECHNIQUE: Using prospective [...] al. JACC 2015 (http://dx.doi.org/10.1016 /j.j [email or web address]) Reading Casing Crew Pusher: Dr. Valerio Morris, Date: 03/24/2023 11:23 am Electronically signed by: SUKHJINDER MOONEY MD Normal [facility] CT Cardiac Scoringon 023 CT Cardiac Scoring Normal [facility] [address] DO Work Phone: Tobacco Screening.on 023 Tobacco use status [facility] b) No [facility] [address] DO Work Phone: [facility] CARDIAC STRESS/REST INJE CTIONon 03-01-2023 [facility] CARDIAC STRESS/REST INJECTION Patient Name: PILO CABAN STUDY: MYOCARDIAL PERFUSION STRESS TEST WITH EXERCISE CONVERTED TO LEXISCAN Performing facility: [facility], [address] [place] [address], Suite [facility] [facility], [address] Provider: Brooks Castro MD, FACC PCP: Dr. Ellis Tomlin Supervising provider: Haley Osullivan MD, FACC INDICATION: Dyspnea Chest tightness HISTORY: Gender: F; Age: 77 y/o ; Height: 0 cm; Weight: 0 kg. Chest Pain; High Cholesterol; SOB; Denies smoking. COMPARISON: No comparison. ACCESSION NUMBER(S): [id number]; [id number]; [id number] ORDERING CLINICIAN: BROOKS CASTRO TECHNIQUE: ONE DAY [...] [facility] No Panel Informationon 03-01 Normal -[facility] 250 DO Work Phone: LIPID PROFILEon 02-27-2023 CHOL-HDL RATIO NORM SEE BELOW Normal [facility] Comment on above: Result Comment: 3.3 - 4.4 LOW RISK 4.4 - 7.1 AVERAGE RISK 7.1 - 11.0 MODERATE RISK >11.0 HIGH RISK Performed By: #### L IPID #### [facility] [address] [address] [address] Krystle Clement Cholesterol [Mass/Vol] 211 mg/dL Critically high <=200 [facility] [place] Comment on above: Performed By: #### L IPID #### [facility] [address] [address] [address] Krystle Clement Cholesterol in HDL [Mass/Vol] 52 mg/dL Normal 40-60 [facility] [place] Comment on above: Performed By: #### L IPID #### [facility] [address] [address] [address] Krystle Clement Cholesterol in LDL [Mass/Vol] 143.0 mg/dL Normal [facility] [place] Comment on above: Performed By: #### L IPID #### [facility] [address] [address] [address] Krystle Clement Cholesterol.total/Cho lesterol in HDL [Mass ratio] 4.1 {ratio} Normal [facility] [place] Comment on above: Performed By: #### L IPID #### [facility] [address] [address] [address] Krystle Clement HDL NORMAL > or = 60 mg/dl - LO W CARDIOVASCULAR RISK <40 mg/dl - HIGH CARDIOVASCULAR RISK Normal [facility] [place] Comment on above: Performed By: #### L IPID #### [facility] [address] [address] [address] Krystle Clement LDL CALC NORMAL SEE BELOW Normal [facility] Comment on above: Result Comment: <100 mg/dl OPTIMAL 100 - 129 mg/dl NEAR OR ABOVE OPTIMAL 130 - 159 mg/dl BORDERLINE HIGH 160 - 189 mg/dl HIGH >190 mg/dl VERY HIGH Performed By: #### L IPID #### [facility] [address] [address] [address] Krystle Clement Triglyceride [Mass/Vol] 80 mg/dL Normal <=150 [facility] [place] Comment on above: Performed By: #### L IPID #### [facility] [address] [place], [place] [address] Dr. Krystle Clement VLDL CALC 16.0 mg/dL Normal [facility] Comment on above: Performed By: #### L IPID #### [facility] [address] [place], [place] [address] Dr. Krystle Clement Office Visit (Cardiology)on 02-13-2023 [...] Order; Status:Hold For - Scheduling,Retrospective Authorization; Requested for:[id number]; Radiologist to Determine Optimal Study : Y What are the patient's signs and symptoms? : dyspnea chest tightness Chest tightness, Dyspnea, Hyperlipidemia Lipid Panel; Status:Active - Retrospective Authorization; Requested for:[id number]; Class 1 obesity with body mass index (BMI) of 30.0 to 30.9 in adult Healthy Weight Tips; Status:Complete - Retrospective Authorization; Done: [id number] Some eating tips that can help you lose weight.; Status:Complete - Retrospective Authorization; Done: [id number] Dyspnea IO EKG Electrocardiogram- 12 Lead; Status:Complete; Done: [id number] SocHx: Never a smoker Tobacco Use Screening; Status:Complete; Done: [id number] Tobacco Use Screening; Status:Complete; Done: [id number] Patient Instructions Please bring all medicines, vitamins, [...] times, but not consistently, and 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 Assessment: 1. 77-year-old with exertional shortness [...] long hist (more content not included)... Normal [employer] Tobacco Screening.on 023 Adult depression screening assessment No [facility] 250 DO Work Phone: Fall risk assessment a) No falls within the last year [facility] 250 DO Work Phone: Tobacco use status [facility] b) No [facility] 250 DO Work Phone: ECHOCARDIO M/2D COMPLETEon 0 01-16-2023 ECHOCARDIO M/2D COMPLETE Patient: PILO CABAN Exam Date: 01/16/2023 : 1945 Gender:F Ordering : DR KATERINA TOMLIN M.D. Admission #: [id number] Family : Order #: [id number] CLICK HERE TO VIEW EXAM ECHOCARDIOGRAM REPORT [...] Stern M.D. on 01/16/2023 at 14:53 Normal [facility] B-Type Natriuretic Peptideon 01-04-2023 B-Type Natriuretic Peptide see note [employer] Other B-Type Natriuretic Peptide 582.0 pg/ml <=1,800.0 pg/ml [employer] Other BNPon 01-04-2023 Natriuretic peptide B (Bld) [Mass/Vol] 582.0 pg/mL Normal <=1,800.0 [facility] [place] Comment on above: Performed By: #### B NAIL FEEDER, BMP #### [facility] [address] [place] [address] Dr. Krystle Clement CBC AUTO DIFFon 01-04-2023 BASO # 0.0 103/ul Normal 0.0-0.1 [facility] [place] Comment on above: Performed By: #### C BC #### [facility] [address] [place] [address] Dr. Krystle Clement Basophils/100 WBC (Bld) 0.7 % Normal 0.2-2.0 [facility] [place] Comment on above: Performed By: #### C BC #### [facility] [address] [place] [address] Dr. Krystle Clement EO # 0.4 103/ul Normal 0.0-0.7 [facility] [place] Comment on above: Performed By: #### C BC #### [facility] [address] [place] [address] Dr. Krystle Clement Eosinophils/100 WBC (Bld) 5.7 % Normal 0.9-7.0 [facility] [place] Comment on above: Performed By: #### C BC #### [facility] [address] [place] [address] Dr. Krystle Clement Erythrocyte distribution width (RBC) [Ratio] 12.9 % Normal 11.0-15.0 [facility] Comment on above: Performed By: #### C BC #### [facility] [address] [place] [address] Dr. Krystle Clement Hematocrit (Bld) [Volume fraction] 44.3 % Normal 36.0-48.0 [facility] [place] Comment on above: Performed By: #### C BC #### [facility] [address] [place] [address] Dr. Krystle Clement Hemoglobin (Bld) [Mass/Vol] 15.0 g/dL Normal 12.0-16.0 [facility] [place] Comment on above: Performed By: #### C BC #### [facility] [address] [place] [address] Dr. Krystle Clement IG # 0.02 10e3/ul Normal 0.00-0.03 [facility] [place] Comment on above: Performed By: #### C BC #### [facility] [address] [place] [address] Dr. Krystle Clement IG % 0.3 % Normal 0.0-0.5 [facility] [place] Comment on above: Performed By: #### C BC #### [facility] [address] [place] [address] Dr. Krystle Clement LYMPH # 1.1 103/ul Critically low 1.2-3.8 [facility] Comment on above: Performed By: #### C BC #### [facility] [address] [place] [address] Dr. Krystle Clement Lymphocytes/100 WBC (Bld) 18.1 % Critically low 20.5-60.0 [facility] [place] Comment on above: Performed By: #### C BC #### [facility] [address] [place] [address] Dr. Krystle Clement MANUAL DIFF REQ NO Normal [facility] Comment on above: Performed By: #### C BC #### [facility] [address] [place] [address] Dr. Krystle Clement MCH (RBC) [Entitic mass] 30.9 pg Normal 26.7-34.0 [facility] [place] Comment on above: Performed By: #### C BC #### [facility] [address] [address] [address] Krystle Clement MCHC (RBC) [Mass/Vol] 33.9 g/dL Normal 29.9-35.2 [facility] [place] Comment on above: Performed By: #### C BC #### [facility] [address] [address] [address] Krystle Clement MCV (RBC) [Entitic vol] 91.3 fL Normal 81.0-99.0 [facility] [place] Comment on above: Performed By: #### C BC #### [facility] [address] [place] [address] Dr. Krystle Clement MONO # 0.7 103/ul Normal 0.3-0.8 [facility] [place] Comment on above: Performed By: #### C BC #### [facility] [address] [place] [address] Dr. Krystle Clement Monocytes/100 WBC (Bld) 11.7 % Normal 1.7-12.0 [facility] [place] Comment on above: Performed By: #### C BC #### [facility] [address] [place] [address] Dr. Krystle Clement NEUT # 3.9 103/ul Normal 1.4-6.5 [facility] [place] Comment on above: Performed By: #### C BC #### [facility] [address] [place] [address] Dr. Krystle Clement Neutrophils/100 WBC (Bld) 63.5 % Normal 43.0-75.0 [facility] Comment on above: Performed By: #### C BC #### [facility] [address] [place] [address] Dr. Krystle Clement Platelet mean volume (Bld) [Entitic vol] 8.8 fL Critically low 9.5-13.5 [facility] [place] Comment on above: Performed By: #### C BC #### [facility] [address] [place] [address] Dr. Krystle Clement PLT 232 103/ul Normal 150-450 [facility] Comment on above: Performed By: #### C BC #### [facility] [address] [address] [address] Krystle Clement RBC 4.85 106/ul Normal 4.20-5.40 [facility] [place] Comment on above: Performed By: #### C BC #### [facility] [address] [address] [address] Krystle Clement WBC 6.1 103/ul Normal 4.0-11.0 [facility] [place] Comment on above: Performed By: #### C BC #### [facility] [address] [address] [address] Krystle Clement PROF CHEM 8 (BAS METB)on Anion gap [Moles/Vol] 11.6 mmol/L Normal [facility] Comment on above: Performed By: #### B NAIL FEEDER, BMP #### [facility] [address] [place] [address] Dr. Krystle Clement Calcium [Mass/Vol] 9.5 mg/dL Normal 8.5-10.1 [facility] Comment on above: Performed By: #### B NAIL FEEDER, BMP #### [facility] [address] [address] [address] Krystle Clement Chloride [Moles/Vol] 110 mmol/L Critically high 98-107 [facility] [place] Comment on above: Performed By: #### B NAIL FEEDER, BMP #### [facility] [address] [place] [address] Dr. Krystle Clement CO2 [Moles/Vol] 29.7 mmol/L Normal 21.0-32.0 [facility] Comment on above: Performed By: #### B NAIL FEEDER, BMP #### [facility] [address] [address] [address] Krystle Clement Creatinine [Mass/Vol] 1.11 mg/dL Critically high 0.55-1.02 [facility] [place] Comment on above: Performed By: #### B NAIL FEEDER, BMP #### [facility] [address] [place] [address] Dr. Krystle Clement EGFR-AF YEMENI 58 mL/min/1.73m2 Critically low >=60 [facility] [place] Comment on above: Performed By: #### B NAIL FEEDER, BMP #### [facility] [address] [address] [address] Krystle Clement EGFR-NON AF YEMENI 48 mL/min/1.73m2 Critically low >=60 [facility] [place] Comment on above: Performed By: #### B NAIL FEEDER, BMP #### [facility] [address] [address] [address] Krystle Clement Glucose [Mass/Vol] 77 mg/dL Normal 74-106 [facility] Comment on above: Performed By: #### B NAIL FEEDER, BMP #### [facility] [address] [address] [address] Krystle Clement Potassium [Moles/Vol] 4.3 mmol/L Normal 3.5-5.1 [facility] [place] Comment on above: Performed By: #### B NAIL FEEDER, BMP #### [facility] [address] [address] [address] Krystle Clement Sodium [Moles/Vol] 147 mmol/L Critically high 136-145 [facility] Comment on above: Performed By: #### B NAIL FEEDER, BMP #### [facility] [address] [address] [address] Krystle Clement Urea nitrogen [Mass/Vol] 16.0 mg/dL Normal 7.0-18.0 [facility] [place] Comment on above: Performed By: #### B NAIL FEEDER, BMP #### [facility] [address] [address] [address] Krystle Clement Urea nitrogen/Creatinine [Mass ratio] 14.4 mg/mg Normal [facility] [place] Comment on above: Performed By: #### B NAIL FEEDER, BMP #### [facility] [address] [address] CHEST WO CONon [...] BARBARA CHO Date: 2022-11-03 15:55 Normal [facility] MAMM SCREEN 3D ITALIA CADon 11-03-2022 MG MAMM SCREEN 3D ITALIA CAD Patient: PILO CABAN Exam Date: 11/03/2022 : 1945 Gender:F Ordering : DR KATERINA TOMLIN M.D. Admission #: [id number] Family : Order #: [id number] CLICK HERE TO VIEW EXAM RADIOLOGY REPORT [...] breast cancer at age 59. LOCATION: [facility] BREAST COMPOSITION: Scattered areas fibroglandular density. [...] LUMP SHOULD BE BIOPSIED. Dictated by: Barbara Coh MD on 11/03/2022 at 15:49 Approved by: Barbara Cho MD on 11/03/2022 at 15:57 Normal [facility] [place] CT CHEST WO CONon 03-10-2022 CT CHEST [...] by: YFN SELF Date: 2022-03-10 10:46 Normal [facility] [place] Vital Signs Date Time Vital Sign Value Performing Clinician Facility 09-09-2024 14:27-0500 Body height 161.3 cm Brooks Castro MD Work Phone: [place] [facility] 09-09-2024 14:27-0500 Body mass index (BMI) [Ratio] 28.77 kg/m2 Brooks Castro MD Work Phone: [facility] 09-09-2024 14:27-0500 Body weight 74.84 kg Brooks Castro MD Work Phone: [facility] 09-09-2024 14:27-0500 Diastolic blood pressure 88 mm[Hg] Brooks Castro MD Work Phone: [facility] 09-09-2024 14:27-0500 Heart rate 74 /min Brooks Castro MD Work Phone: [facility] 09-09-2024 14:27-0500 Systolic blood pressure 144 mm[Hg] Brooks Castro MD Work Phone: [facility] 08-02-2024 10:50-0400 Body height 160.66 cm [facility] 08-02-2024 10:50-0400 Body mass index (BMI) [Ratio] 28.9 kg/m2 [facility] 08-02-2024 10:50-0400 Body weight 74.61 kg [facility] 08-02-2024 10:50-0400 Diastolic blood pressure 80 mm[Hg] [facility] 08-02-2024 10:50-0400 Heart rate 70 /min [facility] 08-02-2024 10:50-0400 Respiratory rate 16 /min [facility] 08-02-2024 10:50-0400 SaO2% (BldA) [Mass fraction] 96 % [facility] 08-02-2024 10:50-0400 Systolic blood pressure 144 mm[Hg] [facility] 12-29-2023 11:03-0500 Body height 162.56 cm MD Katerina Tomlin Work Phone: [facility] 12-29-2023 11:03-0500 Body mass index (BMI) [Ratio] 28 kg/m2 MD Katerina Tomlin Work Phone: [facility] 12-29-2023 11:03-0500 Body weight 74.16 kg MD Katerina Tomlin Work Phone: [facility] 12-29-2023 11:03-0500 Diastolic blood pressure 90 mm[Hg] MD Katerina Tomlin Work Phone: [facility] 12-29-2023 11:03-0500 Heart rate 94 /min MD Katerina Tomlin Work Phone: [facility] 12-29-2023 11:03-0500 Systolic blood pressure 139 mm[Hg] MD Katerina Tomlin Work Phone: [facility] 04-07-2023 13:30-0400 Body height 162.56 cm Katerina Tomlin Other [facility] [employer] Other 04-07-2023 13:30-0400 Body mass index (BMI) [Ratio] 29.69 kg/m2 Katerina Tomlin Other [facility] [employer] Other 04-07-2023 13:30-0400 Body weight 78.47 kg Katerina Tomlin Other [facility] [employer] Other 04-07-2023 13:30-0400 Diastolic blood pressure 76 mm[Hg] Katerina Tomlin Other [facility] [employer] Other 04-07-2023 13:30-0400 Systolic blood pressure 161 mm[Hg] Katerina Tomlin Other [facility] [employer] Other 03-20-2023 16:02-0400 Diastolic blood pressure 82 mm[Hg] Katerina Tomlin Work Phone: [facility] [employer] 250 DO Work Phone: 03-20-2023 16:02-0400 Diastolic blood pressure 80 mm[Hg] Katerina Tomlin Work Phone: [facility] [employer] 250 DO Work Phone: 03-20-2023 16:02-0400 Systolic blood pressure 138 mm[Hg] Katerina Tomlin Work Phone: [facility] 250 DO Work Phone: 03-20-2023 15:32-0400 Body height 160.02 cm Katerina Tomlin Work Phone: [facility] 250 DO Work Phone: 03-20-2023 15:32-0400 Body mass index (BMI) [Ratio] 30.47 kg/m2 Katerina Tomlin Work Phone: [facility] 250 DO Work Phone: 03-20-2023 15:32-0400 Body surface area Derived from formula 1.81 m2 Katerina Tomlin Work Phone: [facility] 250 DO Work Phone: 03-20-2023 15:32-0400 Body weight 78.02 kg Katerina Tomlin Work Phone: [facility] 250 DO Work Phone: 03-20-2023 15:32-0400 Diastolic blood pressure 86 mm[Hg] Katerina Tomlin Work Phone: [facility] 250 DO Work Phone: 03-20-2023 15:32-0400 Heart rate 74 /min Katerina Tomlin Work Phone: [facility] 250 DO Work Phone: 03-20-2023 15:32-0400 Systolic blood pressure 144 mm[Hg] Katerina Tomlin Work Phone: [facility] 250 DO Work Phone: 02-27-2023 14:47-0400 143 1 Katerina Tomlin Work Phone: [facility] 250 DO Work Phone: Comment on above: [facility] 02-13-2023 09:36-0400 Diastolic blood pressure 70 mm[Hg] Katerina Tomlin Work Phone: [facility] 250 DO Work Phone: 02-13-2023 09:36-0400 Systolic blood pressure 138 mm[Hg] Katerina Tomlin Work Phone: [facility] 250 DO Work Phone: 02-13-2023 09:35-0400 Body height 160.02 cm Katerina Tomlin Work Phone: [facility] 250 DO Work Phone: 02-13-2023 09:35-0400 Body mass index (BMI) [Ratio] 30.65 kg/m2 Katerina Tomlin Work Phone: [facility] 250 DO Work Phone: 02-13-2023 09:35-0400 Body surface area Derived from formula 1.82 m2 Katerina Tomlin Work Phone: [facility] 250 DO Work Phone: 02-13-2023 09:35-0400 Body weight 78.47 kg Katerina Tomlin Work Phone: [facility] 250 DO Work Phone: 02-13-2023 09:35-0400 Diastolic blood pressure 72 mm[Hg] Katerina Tomlin Work Phone: [facility] 250 DO Work Phone: 02-13-2023 09:35-0400 Heart rate 63 /min Katerina Tomlin Work Phone: [facility] 250 DO Work Phone: 02-13-2023 09:35-0400 Systolic blood pressure 130 mm[Hg] Katerina Tomlin Work Phone: [facility] 250 DO Work Phone: 01-02-2023 09:30-0500 Body height 162.56 cm Katerina Tomlin Other [facility] [employer] Other 01-02-2023 09:30-0500 Body mass index (BMI) [Ratio] 29.52 kg/m2 Katerina Tomlin Other [facility] [employer] Other 01-02-2023 09:30-0500 Body weight 78.02 kg Katerina Tomlin Other [facility] [employer] Other 01-02-2023 09:30-0500 Diastolic blood pressure 70 mm[Hg] Katerina Tomlin Other [facility] [employer] Other 01-02-2023 09:30-0500 SaO2% (BldA) [Mass fraction] 98 % Katerina Tomlin Other [facility] [employer] Other 01-02-2023 09:30-0500 Systolic blood pressure 142 mm[Hg] Katerina Tomlin Other [facility] [employer] Other Encounters Encounter Date Encounter Type Care Provider Facility Start: 09-09-2024 End: 09-09-2024 Office outpatient visit 25 minutes Brooks Castro MD Work Phone: [facility] Comment on above: SOTO (dyspnea on exer tion); Mixed hyperlipidemia; Never smoked cigarettes; Body mass index (BMI) 28.0-28.9, adult; CRLD (chronic restrictive lung disease); Personal history of COVID-19; Stage 3a chronic kidney disease (Multi) Start: 09-09-2024 End: 09-09-2024 ambulatory [facility] Start: 09-05-2024 End: 09-05-2024 Marshall flowsheet Breanna Duval MD Work Phone: [facility] Start: 09-05-2024 End: 09-05-2024 Bamboo flowsheet Breanna Duval MD Work Phone: [facility] Start: 09-05-2024 End: 09-05-2024 Office outpatient visit 25 minutes Breanna Duval MD Work Phone: [facility] Comment on above: Other atopic dermati tis (Primary Dx); Bug bite without infection, initial encounter; Actinic keratosis Start: 09-05-2024 End: 09-05-2024 ambulatory BREANNA Quique EDWARDSI Not Available Start: 08-02-2024 End: 08-02-2024 ambulatory [facility] Work Phone: Start: 08-02-2024 End: 08-02-2024 Patient encounter procedure [facility] Physician [facility] Work Phone: Start: 07-04-2024 Non-patient / Non-visit [facility] Work Phone: Start: 01-22-2024 End: 01-22-2024 ambulatory [facility] Facility:[facility] Start: 01-22-2024 End: 01-22-2024 ambulatory MD Katerina Tomlin Work Phone: [facility] Work Phone: Start: 01-22-2024 End: 01-22-2024 Departed Referred MD Katerina Tomlin Work Phone: [facility] Start: 01-01-2024 Non-patient / Non-visit MD Bettie Tomlin Work Phone: [facility] Physician [facility] Work Phone: Start: 12-29-2023 End: 12-29-2023 Patient encounter procedure MD Katerina Tomlin Work Phone: [facility] Work Phone: Start: 11-28-2023 End: 11-28-2023 ambulatory BREANNA A PETITTI Not Available Start: 10-03-2023 End: 10-03-2023 ambulatory BREANNA A PETITTI Not Available Start: 04-07-2023 End: 04-07-2023 ambulatory Katerina Tomlin Other [employer] Other Start: 04-07-2023 Patient encounter procedure Katerina Tomlin [facility] Start: 03-28-2023 Chart Update Katerina Tomlin Work Phone: [facility] 250 DO Work Phone: Start: 03-24-2023 Chart Update Katerina Tomlin Work Phone: [facility] 250 DO Work Phone: Start: 03-24-2023 ambulatory Brooks Marquez Facility: [id number] Start: 03-02-2023 Chart Update Katerina Tomlin Work Phone: [facility] 250 DO Work Phone: Start: 03-01-2023 ambulatory Brooks Marquez Facility: [id number] Start: 02-27-2023 End: 02-28-2023 ambulatory [facility] Start: 02-14-2023 End: 02-14-2023 ambulatory Katerina Tomlin Other [employer] Other Start: 02-14-2023 Telephone encounter Katerina Tomlin [facility] Start: 02-13-2023 Office consultation new/estab patient 60 min Katerina Tomlin Work Phone: [facility] 250 DO Work Phone: Start: 02-13-2023 ambulatory MD BROOKS CASTRO Facilit y: Start: 01-18-[address] Katerina Tomlin Facility:[facility] Start: 01-17-2023 End: 01-17-2023 ambulatory Katerina Tomlin Other [employer] Other Start: 01-17-2023 Telephone encounter Katerina Tomlin [facility] Start: 01-16-2023 End: 01-17-[address] KATERINA TOMLIN Facility:[facility] Start: 01-05-2023 End: 01-05-2023 ambulatory Katerina Tomlin Other [employer] Other Start: 01-05-2023 Telephone encounter Katerina Tomlin [facility] Start: 01-04-2023 End: 01-05-[address] KATERINA TOMLIN Facility:[facility] Start: 01-02-2023 End: 01-02-2023 ambulatory Katerina Tomlin Other [employer] Other Start: 01-02-2023 Office outpatient vi sit 15 minutes Katerina Tomlin [facility] Start: 11-03-2022 End: 11-04-2022 ambulatory DAYANNA LOBO . Facility:[facility] Start: 03-10-2022 End: 03-11-2022 ambulatory DAYANNA LOBO . Facility:[facility] Start: 10-17-2018 End: 10-17-2018 Patient encounter procedure EMILY YIN [facility] Procedures Date Procedure Procedure Detail Performing Clinician Start: 09-09-2024 Ecg routine ecg w/le ast 12 lds w/i&r Brooks Castro MD Work Phone: Start: 09-05-2024 CRYOTHERAPY SKIN LESION Breanna Duval MD Work Phone: Appendectomy Katerina Tomlin Work Phone: section Katerina ochoa Work Phone: Colonoscopy Katerina Tomlin Work Phone: Tonsillectomy and adenoidectomy Katerina Tomlin Work Phone: Plan of Treatment Date Care Activity Detail Author Start: 12-23-2024 End: 12-23-2024 Patient encounter procedure 12/23/2024 12:30 PM EST Office Visit [facility] [address] [facility] [address] [place] [address] Brooks Castro MD [address] [facility] [address] [place] [address] [facility] Start: 11-28-2024 End: 11-28-2024 Patient encounter procedure 11/28/2024 1:30 PM EST Office Visit [facility] [address] [place] [address] Breanna Duval MD [address] [place] [address] [facility] Start: 09-09-2024 End: 09-09-2025 Erythrocyte sedimentation rate Sedimentation Rate Lab Routine SOTO (dyspnea on exertion) CRLD (chronic restrictive lung disease) Expected: 09/09/2024 (Approximate), Expires: 09/09/2025 [facility] Work Phone: Comment on above: Expected: 09/09/2024 (Approximate), Expires: 09/09/2025 Start: 09-09-2024 End: 09-09-2025 Natriuretic peptide B [Mass/volume] in Blood B-Type Natriuretic Peptide Lab Routine SOTO (dyspnea on exertion) Expected: 09/09/2024 (Approximate), Expires: 09/09/2025 [facility] Service Area Work Phone: Comment on above: Expected: 09/09/2024 (Approximate), Expires: 09/09/2025 Start: 09-05-2024 End: 09-05-2024 Patient encounter procedure 09/05/2024 9:20 AM EST Office Visit [facility] [address] [facility] [address] [place] [address] Breanna Duval MD [address] [facility] [address] [place] [address] Arrived [facility] Comment on above: Arrived Start: 06-30-2024 COVID-19 Vaccine ( season) COVID-19 Vaccine ( season) [facility] Start: 06-30-2024 Influenza vaccination Influenza Vacc ine (#1) [facility] Start: 03-20-2023 FUV, Provider: Brooks Castro, Status: Pen, Time: 3:30 PM FUV, Provider: Brooks Castro, Status: Pen, Time: 3:30 PM [facility] 250 DO Work Phone: Start: 03-01-2023 STRESS NUC, Provider : [place] HHVI NUCLEAR 01,[id number], Status: Pen, Time: 8:00 AM STRESS NUC, Provider: [place] HHVI NUCLEAR 01,[id number], Status: Pen, Time: 8:00 AM [facility] 250 DO Work Phone: Start: 2021 RSV High Risk: (Elde rly (60+) or Population) (1 - 1-dose 75+ series) RSV High Risk: (Elderly (60+) or Population) (1 - 1-dose 75+ series) [facility] Start: 1996 Zoster Vaccines (1 of 2) Zoste r Vaccines (1 of 2) [facility] Start: 1968 DTaP/Tdap/Td Vaccine s (1 - Tdap) DTaP/Tdap/Td Vaccines (1 - Tdap) [facility] Start: 1965 Urine screening for protein CKD: Urine Protein Screening [facility] Start: 1964 Hepatitis C screening Hepatitis C Sc [facility] Start: 1945 Lipid panel Lipid Panel [facility] Start: 1946 Medicare Annual Well ness Visit Medicare Annual Wellness Visit (AWV) [facility] Start: 1945 Screening for osteoporosis Bone Density Scan [facility] Urine culture [facility] Immunizations Immunization Date Immunization Notes Care Provider Lucila ferrari 10-25-2021 Pfizer-SmartFleetNTOrder Mapper COVI D-19 Vacc 30 MCG/0.3ML Intramuscular Suspension Katerina Tomlin Work Phone: [facility] 250 DO Work Phone: 03-25-2021 Pfizer-BioNTech COVI [...] te vaccine, 13 valmp Tomlin Work Phone: [facility] 250 DO Work Phone: 08-31-2008 pneumococcal polysaccharide vaccine, 23 valmp Tomlin Work Phone: [facility] 250 DO Work Phone: Payers Date Payer Category Payer Self-pay [id number] 2023 Private Health Insurance [facility] INS[facility] [id number] 2011 Medicare [id number] 1959 Medicare [id number] 1959 Unknown [id number] [id number] 1946 Unknown [id number] 2.16.840.1.169363.3.579.2 .356 1946 Unknown [id number] 2.16.840.1.665629.3.579.2 .593 1946 Unknown [id number] 2.16.840.1.694450.3.579.2 .593 1946 Unknown [id number] 2.16.840.1.993254.3.579.2 .593 1946 Unknown [id number] 2.16.840.1.700250.3.579.2 .593 1946 Unknown [id number] 2.16.840.1.455270.3.579.2 .593 1946 Unknown [id number] 2.16.840.1.094998.3.579.2 .593 1946 Unknown [id number] 2.16.840.1.697946.3.579.2 .593 1946 Unknown [id number] 2.16.840.1.720930.3.579.2 .1068 1946 Unknown [id number] 2.16.840.1.327293.3.579.2 .1068 1946 Unknown [id number] 2.16.840.1.542330.3.579.2 .1259 1946 Unknown [id number] 2.16.840.1.762504.3.579.2 .1259 1946 Unknown [id number] 2.16.840.1.165808.3.579.2 .1259 1946 Unknown [id number] 2.16.840.1.426282.3.579.2 .1244 Unknown Unknown [id number] Unknown [id number] 2.16.840.1.472239.3.579.2 .531 Social History Date Type Detail Facility Unknown if ever smoked [facility] [employer] Other Start: 11-28-2023 End: 09-09-2024 Sex Assigned At [facility] [employer] Other Start: 11-28-2023 End: 09-09-2024 Alcohol ingestion Alcohol ingestion -[facility] 250 DO Work Phone: Comment on above: couple weekly whiske y; coffee daily; Start: 1945 Sex Assigned At Female F [facility] Start: 05-04-2023 End: 09-09-2024 Tobacco smoking status NHIS Never smoked tobacco [facility] Start: 05-04-2023 End: 09-09-2024 Tobacco use and exposure Smokeless tobacco non-user [facility] Start: 1945 Sex assigned at Not on file [facility] Start: 09-09-2024 Alcoholic beverage intake Current drinker of alcohol (finding) [facility] Work Phone: Start: 08-30-2024 End: 09-09-2024 Exposure to SARS-CoV-2 (event) Not sure [facility] Clinical Notes 01-02-2023 to 09-09-2024 Brooks Castro MD - 09/09/2024 2:15 PM ESTPatient InstructionsBreanna Duval MD - 09/05/2024 9:20 AM EST Note Date & Type Note Facility 09-09-2024 History of Present illness Narrative Most recent office visit was in February 2023 at which time she was advised for as needed follow-up. Subjective : Accompanied by daughter to the office. Daughter Florence used to be an FINANCIAL ANALYSIS ADVISOR at [employer]. 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 At times she reports audible wheezing. Her cough has improved. Denies any weight loss fever or chills no night sweats She did see pulmonary service, a bronchoscopy was done, results were inconclusive. I have reviewed pulmonary notes. Patient was asked to follow-up with cardiology. Denies chest pressure tightness or heaviness denies palpitations 12 point review of systems is otherwise negative or noncontributory History so Far : 1. exertional shortness of breath and a decrease [...] pericardial effusion. LV end-systolic dimension 3 cm Left atrial diameter was reported to be 3.6 cm. 6. EKG abnormalities, new compared to a previous EKG from December 2022. 7. History of lower extremity edema although I did not appreciate any today 8. 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 9. Pulmonary function testing December 2022-moderate restriction confirmed with a mild restriction on lung volumes based on TLC 77%, moderately severe diffusion impairment, this pattern can be seen in but not restricted to cardio pulmonary vascular disorders and interstitial lung disease. 10. Stress Myoview February 2023-patient exercised for 5.8 METS and 89% age-predicted maximum heart rate. As such she did not show evidence of chronotropic blunting. Blood pressure 126/88 before stress test and 144/84 afterwards. Test was converted to Lexiscan Myoview which reports normal perfusion LVEF of 51% transient ischemic dilatation of 0.[address] chest as part of coronary calcium score February 2023-calcified and noncalcified enlarged bilateral hilar and subcarinal lymph nodes, left main 0 LAD 3, left circumflex 35 RCA 15 total 53 ascending thoracic aorta 3.5 cm calcium score 48 percentile for age gender and race 12. CT chest June 2024-endobronchial lung nodules and small patchy opacities within the lungs, stable compared to February 2024, and increased compared to February 2022 mediastinal and bilateral hilar adenopathy, stable 13. PFTs September 2023-no response to bronchodilators DLCO 59% predicted when corrected to alveolar ventilation DLCO probably improved, due to poor current quality I cannot read the details. Pulmonary function diagnosis was that patient has moderate diffusion defect pulmonary vascular diffusion capacity was decreased, and was felt to be due to loss of functional alveolar capillary surface Objective Wt Readings from Last 3 Encounters: 09/09/24 74.8 kg (165 lb) 03/20/23 78 kg (172 lb) 02/13/23 78.5 kg (173 lb) Vitals: 09/09/24 1427 BP: 144/88 BP Location: Left arm Patient Position: Sitting Pulse: 74 Weight: 74.8 kg (165 lb) Height: 1.613 m (5' 3.5 ) Physical Exam: GENERAL APPEARANCE: in no acute distress. CHEST: Symmetric and non-tender. INTEGUMENT: Skin warm and dry HEENT: No gross abnormalities identified.No pallor or scleral icterus. Did not appreciate lymphadenopathy NECK: Supple, no JVD, no bruit. NEURO/PSHCY: Alert and oriented x3; appropriate behavior and responses and responses LUNGS: Clear to auscultation bilaterally; normal respiratory effort. Lung sounds are distant, did not hear any crepitations or rhonchi HEART: Rate and rhythm regular with no evident murmur; no gallop appreciated. ABDOMEN: Soft, non tender. MUSCULOSKELETAL: No gross deformities. EXTREMITIES: Warm There is no edema noted. Meds: Current Outpatient Medications Medication Instructions multivitamin tablet 1 tablet, Daily No Known Allergies LABS: August 2024 GFR 46 creatinine 1.14 Assessment: 1. SOTO (dyspnea on exertion) ECG 12 Lead Referral to Pulmonology B-Type Natriuretic Peptide Sedimentation Rate B-Type Natriuretic Peptide Sedimentation Rate 2. Mixed hyperlipidemia Follow Up In Cardiology 3. Never smoked cigarettes 4. Body mass index (BMI) 28.0-28.9, adult 5. CRLD (chronic restrictive lung disease) Referral to Pulmonology Sedimentation Rate Sedimentation Rate 6. Personal history of COVID-19 7. 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 I suspect that she has some type of interstitial fibrosis. Her PFTs do suggest a restrictive pattern in my interpretation. There was no bronchodilator response. Patient's quality of life is affected by her shortness of breath. Her symptoms also worsened after COVID in fall 2020, at which point she had pneumonia. I have also ordered sed rate and BNP level After extensive discussion, we will get a second opinion from pulmonary, patient will be referred to Dr.Adham Shaun Topete at [facility]. Patient and daughter would very much want this. Follow up : 3 months Provider Attestation - Conchita Gaitan LPN Scribe documentation All medical record entries made by the Scribe were at my direction and personally dictated by me. I have reviewed the chart and agree that the record accurately reflects my personal performance of the history, physical exam, discussion and plan. documented in this encounter [facility] Work Phone: 09-09-2024 Instructions Conchita Rodriges LPN - 09/09/2024 2:15 PM EST Please bring all medicines, vitamins, and herbal supplements with you when you come to the office. Prescriptions will not be filled unless you are compliant with your follow up appointments or have a follow up appointment scheduled as per instruction of your physician. Refills should be requested at the time of your visit. BMI was above normal measurement. Current weight: 74.8 kg (165 lb) Weight change since last visit (-) denotes wt loss -7 lbs Weight loss needed to achieve BMI 25: 21.9 Lbs Weight loss needed to achieve BMI 30: -6.7 Lbs Provided instructions on dietary changes Provided instructions on exercise. documented in this encounter [facility] Work Phone: 09-05-2024 History of Present illness Narrative Rash Location: ankles/arms Duration: months Severity: moderate Quality: itchy Modifying Factors: none Associated symptoms: spots Treatments tried: OTC meds Current treatments: OTC hydrocortisone Dry Skin Location: hands Duration: months Severity: moderate Timing: worse after being in water Modifying Factors: none Associated Factors: scaly Frequency of showering: every other day Soap currently using: lye soap Moisturizer use: Amlactin 12% Current treatment: Amlactin Lesions: Location: face/ears Duration: months Quality: itchy Modifying factors: aggravated by picking Associated symptoms: rough, scaly Treatments: none All pertinent medical history, medications, and allergies were reviewed. General Exam: alert, oriented to person, place, and time, normal affect, well appearing Unaccompanied A focused exam completed based on patient reported problems, see below: 1. Other atopic dermatitis Left Hand - Posterior, Right Hand - Posterior Scaly erythematous plaques +/- dyspigmentation, lichenification, excoriations. Flaring today Discussed that atopic dermatitis is a chronic condition that can be controlled but not cured. Start TAC 0.1% bid prn when flared, hold if smooth/asymptomatic. Encouraged daily moisturizing and gentle cleansers to prevent flares. Notify office if flaring despite treatment. Related Medications triamcinolone (Kenalog) 0.1 % cream Apply topically 2 (two) times a day as needed (Rash) 2. Bug bite without infection, initial encounter (2) Left Ankle - Anterior, Right Lower Leg - Anterior History of pink papules Patient to use TAC 0.1% BID PRN when flared. 3. Actinic keratosis (3) Dorsum of Nose, Left Posterior Mandible, Right Malar Cheek Erythematous scaly papules Patient was counseled regarding these sun-induced growths that can develop into squamous cell carcinoma if left untreated. Discussed treatment with cryotherapy. It was emphasized that any treated lesions that fail to resolve should be re-evaluated. Cryotherapy performed today; see procedure note Diagnosis: Actinic keratosis Indication: Precancerous Location: see skin exam Consent: Verbal consent was obtained and risks were discussed, including, but not limited to risks of scarring, darker or airplane patroller pigmentary changes, recurrence, incomplete removal and infection. Method: Liquid nitrogen was used to treat the lesion(s) with two 5-10 second freeze-thaw cycles. Eyes were shielded using cotton pad during procedure Number of lesions treated: 3 Post-procedure instructions: Instructions were given orally and in writing. The office will be contacted if the lesion fails to resolve despite treatment, or if a side effect develops such as abnormal crusting, scabbing, redness or tenderness Cryotherapy, skin lesion - Dorsum of Nose, Left Posterior Mandible, Right Malar Cheek Next Visit: as scheduled documented in this encounter [facility] 04-07-2023 Evaluation note Encounter Date Diagnosis Assessment Notes Mar, Inflamed seborrheic keratosis (ICD-10 - L82.0) cryotherapy on lesion [employer] Other 06-09-2023 Evaluation note* Encounter Date Diagnosis Assessment Notes Treatment Notes Treatment Clinical Notes Mar, Inflamed seborrheic keratosis (ICD-10 - L82.0) cryotherapy on lesion. There is no tick bite. [employer] Other 03-21-2023 Evaluation note* Encounter Date Diagnosis Assessment Notes Treatment Notes Treatment Clinical Notes Dec, Dyspnea, unspecified (ICD-10 - R06.00) Dec, Other abnormalities of breathing (ICD-10 - R06.89) Dec, Abnormal EKG (ICD-10 - R94.31) [employer] Other 03-06-2023 Evaluation note* Encounter Date Diagnosis Assessment Notes Treatment Notes Treatment Clinical Notes Dec, Leg edema (ICD-10 - R60.0) Discussed differential including heart failure. Pt would like to get tests to have a cause for her ongoing symptoms. Dec, Dyspnea on exertion (ICD-10 - R06.09) PFT this week. Complete tests as ordered. Pt agrees. [employer] Other Chief complaint Narrative - ReportedPATRICREGINA CABAN is being seen for a consultation for.-[facility] 250 DO Work Phone: Evaluation noteNo [employer] Other Evaluation note* Diagnosis Onset Date Resolution Status Calcified lymph nodes acute Multiple pulmonary nodules a cute [facility] Work Phone: Evaluation note* Diagnosis Onset Date Resolution Status Urinary frequency acute [facility] Work Phone: Evaluation note* Diagnosis Other atopic dermatitis- Primary Bug bite without infection, initial encounter Actinic keratosis documented in this encounter [facility]* Diagnosis SOTO (dyspnea on exertion) Other dyspnea and respiratory abnormality Mixed hyperlipidemia Never smoked cigarettes Body mass index (BMI) 28.0-28.9, adult CRLD (chronic restrictive lung disease) Other diseases of lung, not elsewhere classified Personal history of COVID-19 Stage 3a chronic kidney disease (Multi) documented in this encounter [facility] Work Phone: History general Narrative - Reported* Type Description Date Medical History History of COVID-19 Medical History Shortness of breath Medical History Multiple pulmonary nodules Medical History Myalgia Medical History Dyspnea on exertion Medical History Abdominal pain, epigastric Medical History CALCIFIED LYMPH NODES Medical History Abnormal x-ray of lung Medical History INCREASED SERUM LIPIDS Surgical History X3 Surgical History D&C Surgical History T&A Hospitalization History SEE SURGICAL HX [employer] Other History of Present illness Narrative* 77-year-old female accompanied by daughter to the office, is being seen in cardiology consultation at the request of Dr. Billy regarding shortness of breath and lower extremity edema. * No history of hypertension or diabetes, lipid status is not available. * I have reviewed recent office notes by Dr. Tomlin. * Patient gives history of COVID pneumonia about 2 years ago, required hospitalization for 2 days, and symptoms were bad for 1-1/2 to 2 weeks. * She has since then had fatigue, and decreased exercise tolerance, but symptoms have been persistingfor over 2 years now, and she is also noticing some lower extremity edema albeit mild, and decided to seek additional testing. Referral was made to pulmonology, patient tells me that she had pulmonary function testing, she was given an inhaler, which helped at times, but not consistently, and that the university counselor felt that her shortness of breath is not of a primary pulmonary issue. * She denies orthopnea or PND. Further review of systems is positive for the fact that she gets chesttightness prior to shortness of breath. She is a quite active female, who has a form, and she balestoday, she does a lot of chores around the house, she mows her yard, continues to do these activities but with some difficulty. * At times she has audible wheezing. Her daughter says that when patient is short of breath she lookslike she is having an asthma attack. Medications were reviewed, there are no known drug allergies, family history is noncontributory given her age. * Her EKG today shows normal sinus rhythm at 63 bpm with T wave abnormality in leads III and aVF which was not seen on a previous EKG from December 2022. * Reviewed echocardiogram results and laboratory data. On January 04, 2023 her sodium was 147 potassium 4.3 GFR 48 creatinine 1.1. Hemoglobin and hematocrit were 15 and 44 respectively platelets 232 whiteblood cell count 6.1. NT proBNP level was 582, with the lab reference being less than thousand 800.Blood pressure today is 130s over 70. * Also reviewed echocardiogram that was done on 01/16/2023 at [facility]. * Assessment: * 1. 77-year-old with exertional shortness of breath and a decrease in functional capacity-I would say she is functional class II right now, but her baseline activity level was excellent for her age, still it is above average. * 2. Chronic kidney disease stage IIIa GFR 40 04 January 2023 * 3. Personal history of COVID with pneumonia 2020 * 4. Active elizondo * 5. Echocardiogram December 2022-LVEF 65% mild aortic regurgitation unable to assess right-sided pressures because of lack of measurable tricuspid regurgitation, no pericardial effusion. LV end-systolic dimension 3 cm left atrial volume index however was reported to be 66 which is elevated. Left atrialdiameter was reported to be 3.6 cm. * 6. EKG abnormalities, new compared to a previous EKG from December 2022. * 7. History of lower extremity edema although I did not appreciate any today * 8. 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 * Recommendations: * 1. Obtain lipid profile * 2. Received with a treadmill stress perfusion imaging study, may switch to [employer] Myoview as needed * 3. We talked about shortness of breath being an anginal equivalent in her age group. * 4. Gave her prescription for sublingual nitroglycerin, to use as needed chest tightness, discussed today pros and cons, patient understands that if symptoms escalate she needs to seek prompt medical attention. * Follow-up after testing * Thank you for allowing us to participate in Pilo's care, please do not hesitate to call if further questions arise, * Sincerely, * Brooks Castro MD [facility] 250 DO Work Phone: Summary Purpose Family [...] Malignant neoplasm Unknown natural son Hypertension Unknown Relationship Condition Age at Onset Recorded Date/T martin daughter Hypertension Unknown father Unknown mother Unknown Malignant neoplasm Unknown son Hypertension Unknown Advance Directives No Advanced Directives Records Found Advance Directive Response Recorded Date/ Time Advance Directives No November 28, 2018 12:00pm Reason for Referral Reason *FU 01/25 Last OV, echo, EKG, labs - c/o dyspnea on exertion and LE edema. Diagnosis 1 Abnormal EKG (R94.31 ) Referral Organization [facility] Becky padron Referring Provider First Name Katerina Referring Provider Last Name Nabor Referring Provider Specialty Family [facility] Referred Organization [facility] enter Referred Provider Brandt Ramírez Referred Address [address] [address] [place] [address] Referred Provider Specialty Cardiology Referral Priority Routine General Notes Bindu Thomas 12:56:01 PM >received today, attachments made, notes locked, and referral faxed Chief Complaint and Reason for Visit Chief Complaint wellness Reason for Visit Urinary frequency Additional Source Comments INFORMATION SOURCE (unrecogn ized section and content) DATE CREATED AUTHOR 10/20/2018 [facility] DATE CREATED AUTHOR AUTHOR'S ORGANIZ ATION 02/13/2023 [facility] DATE CREATED AUTHOR AUTHOR'S ORGANIZ ATION 02/14/2023 [employer] DATE CREATED AUTHOR AUTHOR'S ORGANIZ ATION 03/03/2023 [facility] DATE CREATED AUTHOR AUTHOR'S ORGANIZ ATION 04/07/2023 [facility] DATE CREATED AUTHOR AUTHOR'S ORGANIZ ATION 01/26/2024 [facility] DATE CREATED AUTHOR AUTHOR'S ORGANIZ ATION 09/07/2024 [facility] EPIC DATE CREATED AUTHOR AUTHOR'S ORGANIZ ATION 09/14/2024 [facility] REASON FOR VISIT (unrecogniz ed section and content) Reason Comments Follow-up 1 year Specialty Diagnoses / Procedures Referred By Contac t Referred To Contact Diagnoses SOTO (dyspnea on exertion) Procedures ECG 12 Lead Brooks Castro MD [address] [address] Phone: tel: fax: Referral ID Status Reason Start Date Expiration Date V isits Requested Visits Authorized [id number] Authorized 09/09/2024 09/09/2025 1 1 Care Teams (unrecognized sec tion and content) Team Status: Active Member Role Status Dates Katerina Tomlin MD Primary Care Provider Active Team Status: Active Member Role Status Dates Katerina Tomlin MD Primary Care Provider Active Start: July 04, 2024 Dayanna VICENTE DO Attending Provider Active Start: July 04, 2024 Team Status: Inactive Member Role Status Dates Katerina Tomlin MD Primary Care Provide r, Attending Provider Active Start: August 02, 2024 End: August 02, 2024 Team Status: Inactive Member Role Status [...] 22, 2024 End: January 22, 2024 Dayanna VICENTE DO Attending Provider Active Start: January 22, 2024 End: January 22, 2024 Club Car Attendant Relationship Specialty Start Date End Date Katerina Tomlin MD [address] [place] [address] PCP - General 01/18/23 Goals (unrecognized section and content) Goals may [...] BE BASED ON THE PRIMARY CLINICAL RECORDS. [facility]. provides no warranty or guarantee of the accuracy or completeness of information in this document.
[2024-10-02 13:53] LABS: Erythrocyte Sedimentation Rate 7 mm/hr (<=30)
== END 2024-10-02 13:21 | disposition home or self-care (01) ==
LOC: LAB 13:21
PROVIDERS: PCP Family Medicine; Visit Provider Internal Medicine Interventional Cardiology
DX: R06.09 Other forms of dyspnea (principal); J98.4 Other disorders of lung
CPT/HCPCS: 36415; 83880; 85652

== ENCOUNTER 2025-03-11 22:07 | Emergency (ER) | payer MEDICARE, OTHER, SELFPAY ==
[2025-03-11] VITALS (12 sets, daily range): BP systolic 114–201; BP diastolic 80–153; PULSE 115–137; RESP 20; O2SAT 52–98; BMI 30.8
--- NOTE | 2025-03-11 22:10 | ECG_ITS ---
[facility] Test Date: 2025-03-11 Pat Name: PILO GREGORY Department: Room: - Gender: Female Security Business Analyst: : 1945 Requested By: [id number] Order Number: [id number] Reading MD: ALFRED LOWERY M.D. Measurements Intervals [place] Rate: 133 P: -30 AK: 142 QRS: -30 QRSD: 124 T: 102 QT: 296 QTc: 374 Interpretive Statements Atrial flutter with 2:1 AV conduction Right bundle branch block [address] depression 4564 Twave abnormality, possible lateral ischemia 7202 Moderate left axis deviation 9150 abnormal ECG Compared to ECG 01/01/2024 12:56:04 Atrial flutter has replaced sinus rhythm ST (T wave) deviation now present Left-axis deviation now present Electronically Signed On 03-12-2025 6:55:03 EDT by ALFRED LOWERY M.D.
--- OUTSIDE RECORDS SUMMARY | 2025-03-11 22:13 | XMS_ITS | CCD ---
Author Organization [facility] Care Team Providers Care Sand Operator Name Role Phone EMILY YIN Unavailable Unavailable Alexander Tomlin Unavailable Alexander Tomlin Unavailable Unavailable Unavailable MD KATHLEEN CASTRO Attending Unavailable Nabor, Dr. Alexander Nina Referring Unav ailable Tomlin, Dr. Alexander Nina Primary Care Unav ailable Tomlin, Dr. Alexander Nina Primary Care Unav ailable MISC, DOCTOR Admitting Unavailable NABOR, DR ALEXANDER Aparicio Primary Care Unavailable MISC, DOCTOR Attending Unavailable MISC, DOCTOR Consulting Unavailable NABOR, DR ALEXANDER Aparicio Primary Care Unavailable TOMLIN, DR ALEXANDER Aparicio Admitting Unavailable TOMLIN, DR ALEXANDER Aparicio Attending Unavailable TOMLIN, DR ALEXANDER Aparicio Consulting Unavailable NABOR, DR ALEXANDER Aparicio Primary Care Unavailable NABOR, DR ALEXANDER Aparicio Admitting Unavailable TOMLIN, DR ALEXANDER Aparicio Attending Unavailable TOMLIN, DR ALEXANDER Aparicio Consulting Unavailable SAMSA ., DAYANNA Admitting Unavailable SAMSA ., DAYANNA Attending Unavailable SAM ., DAYANNA Consulting Unavailable NABOR, DR ALEXANDER Aparicio Primary Care Unavailable NABOR, DR ALEXANDER Aparicio Admitting Unavailable TOMLIN, DR ALEXANDER Aparicio Attending Unavailable WEST, DR BARBARA Galvan Consulting Unavailable NABOR, DR ALEXANDER Aparicio Primary Care Unavailable NABOR, DR ALEXANDER Aparicio Consulting Unavailable SAMSA ., DAYANNA Admitting Unavailable SAMSA ., DAYANNA Attending Unavailable MARQUIS, DR BARBARA Galvan Consulting Unavailable NABOR, DR ALEXANDER Aparicio Primary Care Unavailable SAMSA ., DAYANNA Consulting Unavailable SAMSA ., DAYANNA Attending Unavailable SAMSA ., DAYANNA Admitting Unavailable Rober Chávez Consulting Unavailable NABOR, DR ALEXANDER Aparicio Primary Care Unavailable SAMSA ., DAYANNA Consulting Unavailable Kathleen Marquez Attending Unavailable Tomlin, Dr. Alexander Nina Primary Care Unav ailable Moha0n, Kathleen Attending Unavailable Dr. Alexander Tomlin Primary Care MD Alexander Phoenix Primary Care Provider [phone] [facility] [place], DO Horvath Attending Provider [facility] [place], Dayanna Attending Unavailable [facility] [place], Dayanna Admitting Unavailable Alexander Tomlin Primary Care Unavailable Unavailable Primary Care Provider UnavailAlexander Calderon MD Primary Care Provider [phone] ALEXANDER TOMLIN Primary Care Unavailable KATHLEEN CASTRO Attending Unavailable ALEXANDER TOMLIN Primary Care Unavailable CATHY BENITEZ Attending Unavailable ALEXANDER TOMLIN Primary Care Unavailable JAMES MO Attending Unavailable ALEXANDER TOMLIN Primary Care Unavailable KATHLEEN CASTRO Attending Unavailable KATHLEEN CASTRO Referring Unavailable ALEXANDER TOMLIN Primary Care Unavailable CATHY BENITEZ Referring Unavailable ALEXANDER TOMLIN Primary Care Unavailable CHOCO LANDAVERDE Attending Unavailable CHOCO LANDAVERDE Attending Unavailable Allergies Allergy Classification Reported Allergen(s) Allergy Type Date of Onset Reaction(s) Facility (14 sources) Iodine; Translations: [IODINE] Drug Allergy 11-03-2006 Rash [facility] Repository Medications Current Medications Medication Drug Class(es) Dates Sig (Normalized) Sig (Original) 0.05 ml aflibercept 40 mg/ml injection (4 sources) Vascular Endothelial Growth Factor Inhibitor aflibercept (Eylea) 2 MG/0.05ML intra-ocular injection 2 mg by Intravitreal route Active aflibercept (Eyl ea) 2 mg/0.05 mL intra-ocular injection 0.05 mL (2 mg) by intravitreal route 1 time. Every 4 months Active 60 actuat budesonide 0.08 mg/actuat / formoterol fumarate 0.0045 mg/actuat metered dose inhaler (2 sources) Corticosteroid, beta2-Adrenergic Agonist Start: 04-02-2024 Symbicort 80-4. 5 MCG/ACT inhaler every 12 (twelve) hours 04/02/2024 Active fluticasone propionate 0.05 mg/actuat metered dose nasal spray (6 sources) Corticosteroid fluticasone (Flonase) 50 MCG/ACT nasal spray 1 spray in the morning. Active take 1 spray(s) nasal route once daily fluticasone (Flonase) 50 mcg/actuation nasal spray Administer 1 spray into each nostril once daily. Shake gently. Before first use, prime pump. After use, clean tip and replace cap. Active 30 actuat fluticasone furoate 0.1 mg/actuat / umeclidinium 0.0625 mg/actuat / vilanterol 0.025 mg/actuat dry powder inhaler (2 sources) Anticholinergic, Corticosteroid, beta2-Adrenergic Agonist Start: 12-11-2024 take 1 puff(s) by inhalation once daily Trelegy Ellipta 100-62.5-25 MCG/ACT aerosol powder INHALE 1 PUFF EVERY DAY 12/11/2024 Active ammonium lactate 120 mg/ml topical cream (8 sources) Start: 11-22-2022 End: 03-01-2025 ammonium lactate (Amlactin) 12 % cream Indications: Xerosis cutis Apply topically Daily as needed for dry skin 145 g 01/30/2025 03/01/2025 Active Multiple Vitamin (Multi-Vitamin) tablet (2 sources) take 1 tablet by mouth in the morning Multiple Vitamin (Multi-Vitamin) tablet Take 1 tablet by mouth in the morning. Active multivitamin tablet (5 sources) take 1 tablet by mouth once daily multivitamin tablet Take 1 tablet by mouth once daily. Active Forsan (No Known Home Meds) (1 source) Start: 08-02-2024 Forsan (No Known Home Meds) Active August 02, 2024 12:00am triamcinolone acetonide 1 mg/ml topical cream (5 sources) Corticosteroid Start: 09-05-2024 triamcinolone (Kenalog) 0.1 % cream Indications: Other atopic dermatitis Apply topically 2 (two) times a day as needed (Rash) 60 g 11 09/05/2024 Active Completed/Discontinued Medications Medication Drug Class(es) Dates Sig (Normalized) Sig (Original) [id number] 200 actuat albuterol 0.09 mg/actuat metered dose inhaler (14 sources) beta2-Adrenergic Agonist Start: 12-27-2023 End: 08-02-2024 [...] PERSISTS. Quantity: 25 Refills: 3 Ordered: 13-Feb-2023 Kathleen Castro MD Start : 13-Feb-2023 Active Problems Active Problems Problem Classification Problem Date Documented Date Episodic/Chronic Abdominal pain (6 sources) Epigastric pain; Translations: [Epigastric pain] Episodic Administrative/social admission (2 sources) Follow-up status; Translations: [Other specified counseling] Episodic Allergic reactions (2 sources) Atopic dermatitis; Translations: [Other atopic dermatitis] 09-05-2024 Chronic Chronic kidney disease (11 sources) Chronic kidney disease stage 3A ; Translations: [Chronic kidney disease, Stage III (moderate)] Onset: 09-09-2024 09-09-2024 Chronic Chronic kidney disease (2 sources) Chronic kidney disease; Translations: [Chronic kidney disease, stage 3a (Multi)] Onset: 09-09-2024 Disorders of lipid metabolism (18 sources) Hyperlipidemia; Translations: [Other and unspecified hyperlipidemia] Onset: 03-02-2023 Resolved: 12-23-2024 Chronic E Codes: Natural/environment (2 sources) Insect bite - wound; Translations: [Bitten or stung by nonvenomous insect and other nonvenomous arthropods, initial encounter] 09-05-2024 Episodic Genitourinary symptoms and ill-defined conditions (2 sources) Increased frequency of urination; Translations: [Frequency of micturition] 08-02-2024 Episodic Immunity disorders (12 sources) Sarcoidosis; Translations: [Sarcoidosis, unspecified] Onset: 10-15-2024 10-15-2024 Chronic Neoplasms of unspecified nature or uncertain behavior (2 sources) Neoplastic disease; Translations: [Neoplasm of unspecified behavior of bone, soft tissue, and skin] 01-30-2025 Episodic Nonspecific chest pain (12 sources) Tight chest; Translations: [Other chest pain] Onset: 02-27-2023 Episodic Other circulatory disease (2 sources) Spider nevus; Translations: [Nevus, non-neoplastic] 01-30-2025 Episodic Other connective tissue disease (5 sources) [...] disorders of lymphatic channels] 12-29-2023 Chronic Other lower respiratory disease (15 sources) Dyspnea on exertion; Translations: [Other forms of dyspnea] Onset: 09-09-2024 09-09-2024 Episodic Other lower respiratory disease (12 sources) Dyspnea; Translations: [Shortness of breath] Onset: [...] Onset: 03-10-2022 Episodic Other lower respiratory disease (10 sources) Restrictive lung disease; Translations: [Other diseases of lung, not elsewhere classified] Onset: 09-09-2024 09-09-2024 Episodic Other non-epithelial cancer of skin (2 sources) History of malignant neoplasm of skin; Translations: [Personal history of other malignant neoplasm of skin] 01-30-2025 Episodic Other nutritional; endocrine; and metabolic disorders (4 sources) Obesity; Translations: [Obesity, unspecified] Chronic Other skin disorders (2 sources) Inflamed seborrheic keratosis Episodic Other skin disorders (4 sources) Actinic keratosis; Translations: [Actinic keratosis] 09-05-2024 Episodic Other skin disorders (2 sources) Asteatosis cutis; Translations: [Xerosis cutis] 01-30-2025 Episodic Other skin disorders (2 sources) Seborrheic keratosis; Translations: [Other seborrheic keratosis] 01-30-2025 Episodic Other skin disorders (2 sources) Lentiginosis; Translations: [Other melanin hyperpigmentation] 01-30-2025 Episodic Other skin disorders (2 sources) Sebaceous hyperplasia; Translations: [Other specified follicular disorders] 01-30-2025 Episodic Other skin disorders (2 sources) Inflamed seborrheic keratosis; Translations: [Inflamed seborrheic keratosis] 01-30-2025 Episodic Residual codes; unclassified (1 source) Kidney donor; Translations: [Kidney donor] Onset: 10-17-2018 Episodic Residual codes; unclassified (5 sources) Localized edema; Translations: [LOCALIZED EDEMA] Onset: 01-16-2023 Episodic Residual codes; unclassified (7 sources) Never smoked tobacco; Translations: [Other specified health status] Onset: 09-09-2024 09-09-2024 Episodic Unclassified (1 source) Personal history of COVID-19; Translations: [Personal history of COVID-19] Onset: 09-09-2024 Past or Other Problems Problem Classification Problem Date Documented Date Episodic/Chronic Other infections; including parasitic (10 sources) Personal history of other infectious and parasitic diseases; Translations: [Personal history of COVID-19] Onset: 09-09-2024 09-09-2024 Episodic Other lower respiratory disease (4 sources) Other forms of dyspnea; Translations: [OTHER FORMS OF DYSPNEA] Onset: 01-21-2023 Episodic Other lower respiratory disease (2 sources) Other disorders of lung; Translations: [Other disorders of lung] Onset: 09-09-2024 Episodic Other nutritional; endocrine; and metabolic disorders (8 sources) Overweight in adulthood with body mass index of 25 or more but less than 30; Translations: [Body mass index (BMI) 28.0-28.9, adult] Onset: 09-09-2024 09-09-2024 Episodic Other nutritional; endocrine; and metabolic disorders (1 source) Body mass index (BMI) 28.0-28.9, adult; Translations: [Body mass index (BMI) 28.0-28.9, adult] Onset: 09-09-2024 Episodic Other screening for suspected conditions (not mental disorders or infectious disease) (5 sources) Abnormal electrocardiogram [ECG] [EKG]; Translations: [Encounter for screening mammogram for malignant neoplasm of breast] Onset: 11-03-2022 Episodic Residual codes; unclassified (1 source) Family history of malignant neoplasm of breast; Translations: [FAMILY HX MALIG NEOPLASM OF BREAST] Onset: 11-04-2022 Episodic Residual codes; unclassified (2 sources) Other specified health status; Translations: [Other specified health status] Onset: 09-09-2024 Episodic Unclassified (6 sources) History of COVID-19; Translations: [History of COVID-19] Unclassified (4 sources) Patient status finding; Translations: [Patient new to provider] Unclassified (4 sources) Never smoked tobacco; Translations: [Never a smoker] Unclassified (5 sources) Onset: 09-09-2024 Resolved: 12-10-2024 09-09-2024 Unclassified (1 source) Personal history of COVID-19; Translations: [Personal history of COVID-19] Onset: 09-09-2024 Results Test Name Value Interpretation Reference Range Facility No Panel Informationon 01-30 [facility] Type of biopsy: gonsalez ential Informed consent: discussed and consent obtained Informed consent comment: The risks and benefits of the biopsy were discussed. Risks include but are not limited to bleeding, infection, scarring, pain, and nerve damage. An opportunity to ask questions prior to the procedure was permitted and all questions were answered. Patient was prepped and draped in usual sterile fashion: area cleansed with alcohol. Anesthesia: the lesion was anesthetized in a standard fashion Anesthetic: 1% lidocaine w/ epinephrine 1-100,000 buffered w/ 8.4% NaHCO3 Instrument used: DermaBlade Hemostasis achieved with: electrodesiccation Outcome: patient tolerated procedure well Outcome comment: The specimen was placed in a prelabeled formalin container to be sent for pathology Post-procedure details: sterile dressing applied and wound care instructions given Post-procedure details comment: Emphasized need to contact clinic for any signs of infection, uncontrollable bleeding, or complications. Dressing type: bandage Additional details: Photo taken Amount of lidocaine used: 1.0 cc [facility] Complete Pulmonary Function Test Pre/Post Bronchodilator (Spirometry Pre/Post/DLCO/Lung Volumes)Ordered By: Pepito Nguyen on 11-27-2024 FEV1 - Post 1.07 [facility] Work Phone: FEV1 - Pre 1.03 [facility] Work Phone: FEV1 - Predicted 1.95 [facility] Work Phone: FVC - Post 1.63 [facility] Work Phone: FVC - PRE 1.7 [facility] Work Phone: FVC Predicted 2.54 [facility] Work Phone: [facility] Work Phone: Complete Pulmonary Function Test Pre/Post Bronchodilator (Spirometry Pre/Post/DLCO/Lung Volumes)on 11-27-2024 The FEV1/FVC (0.60) is reduced. The FEV1 (1.03L/52%) is mildly reduced. The FVC (1.70L/66%) is mildly reduced. Following administration of bronchodilators, there is no significant response. The TLC by body plethysmography is reduced, (62%) suggesting a moderate restrictive defect. The DLCO (66%) is mildly reduced; however, the diffusing capacity was not corrected for the patient's hemoglobin. The airways resistance is increased. Conclusion: Spirometry is indicative of combined mild to moderate chest restriction/airflow obstruction without significant response to bronchodilator challenge. Lung volumes by plethysmography indicate a restrictive ventilatory impairment. DLCO values are consistent with incomplete lung expansion or localized loss of lung volume. [facility] Pepito Quintana MD - 11/27/2024 The FEV1/FVC (0.60) is reduced. The FEV1 (1.03L/52%) is mildly reduced. The FVC (1.70L/66%) is mildly reduced. Following administration of bronchodilators, there is no significant response. The TLC by body plethysmography is reduced, (62%) suggesting a moderate restrictive defect. The DLCO (66%) is mildly reduced; however, the diffusing capacity was not corrected for the patient's hemoglobin. The airways resistance is increased. Conclusion: Spirometry is indicative of combined mild to moderate chest restriction/airflow obstruction without significant response to bronchodilator challenge. Lung volumes by plethysmography indicate a restrictive ventilatory impairment. DLCO values are consistent with incomplete lung expansion or localized loss of lung volume. [facility] Work Phone: 1,25-dihydroxyvitamin D3 [Ma ss/Vol]on 10-15-2024 1,25-dihydroxyvitamin D [Mass/Vol] 57.4 pg/mL Normal 19.9-79.3 [facility] Comment on above: Result Comment: INTE RPRETIVE INFORMATION: Vitamin D, 1,25-Dihydroxy This test is primarily indicated during patient evaluation for hypercalcemia and renal failure. A normal result does not rule out Vitamin D deficiency. The recommended test for diagnosing Vitamin D deficiency is Vitamin D 25-hydroxy. Performed By: [facility] [address] [place] [address] Pharmacy Technician: Ryley Cardenas MD, PhD CLIA Number: [id number] Performed By: #### 1 649-3 #### [facility] (BEAKER) ([id number]) [address] [place] [address] CBC W Auto Differential pane l (Bld)on 10-15-2024 Basophils (Bld) [#/Vol] 0.04 10*3/uL [facility] Basophils/100 WBC (Bld) 0.5 % 0.0 - 2.0 % [facility] Eosinophils (Bld) [#/Vol] 0.29 10*3/uL [facility] Eosinophils/100 WBC (Bld) 3.9 % 0.0 - 6.0 % [facility] Erythrocyte distribution width (RBC) [Ratio] 12.9 % 11.5 - 14.5 % [facility] Hematocrit (Bld) [Volume fraction] 44.2 % 36.0 - 46.0 % [facility] Hemoglobin (Bld) [Mass/Vol] 14 g/dL 12.0 - 16.0 g/dL [facility] Immature granulocytes (Bld) [#/Vol] 0.03 10*3/uL [facility] Immature granulocytes/100 WBC (Bld) 0.4 % 0.0 - 0.9 % [facility] Comment on above: Immature Granulocyte Count (IG) includes promyelocytes, myelocytes and metamyelocytes but does not include bands. Percent differential counts (%) should be interpreted in the context of the absolute cell counts (cells/UL). Interpretation and review of laboratory results Abnormal [facility] Lymphocytes (Bld) [#/Vol] 1.01 10*3/uL [facility] Lymphocytes/100 WBC (Bld) 13.5 % 13.0 - 44.0 % [facility] MCH (RBC) [Entitic mass] 29.5 pg 26.0 - 34.0 pg [facility] MCHC (RBC) [Mass/Vol] 31.7 g/dL Low 32.0 - 36.0 g/dL [facility] MCV (RBC) [Entitic vol] 93 fL 80 - 100 fL [facility] Monocytes (Bld) [#/Vol] 0.77 10*3/uL [facility] Monocytes/100 WBC (Bld) 10.3 % 2.0 - 10.0 % [facility] Neutrophils (Bld) [#/Vol] 5.36 10*3/uL [facility] Comment on above: Percent differential counts (%) should be interpreted in the context of the absolute cell counts (cells/uL). Neutrophils/100 WBC (Bld) 71.4 % 40.0 - 80.0 % [facility] Nucleated RBC/100 WBC (Bld) [Ratio] 0 % [facility] Platelets (Bld) [#/Vol] 193 10*3/uL [facility] RBC (Bld) [#/Vol] 4.74 10*6/uL [facility] WBC (Bld) [#/Vol] 7.5 10*3/uL [facility] Basophils (Bld) [#/Vol] 0.04 x10*3/uL Normal 0.00-0.10 [facility] Comment on above: Performed By: #### 5 7021-8 #### LOW SWIFT ([id number]) [facility] ([facility] [address] [place] [address] Basophils/100 WBC (Bld) 0.5 % Normal 0.0-2.0 [facility] Comment on above: Performed By: #### 5 7021-8 #### LOW SWIFT ([id number]) [facility] ([facility] [address] [place] [address] Eosinophils (Bld) [#/Vol] 0.29 x10*3/uL Normal 0.00-0.40 [facility] Comment on above: Performed By: #### 5 7021-8 #### LOW SWIFT ([id number]) [facility] ([facility] [address] [place] [address] Eosinophils/100 WBC (Bld) 3.9 % Normal 0.0-6.0 [facility] Comment on above: Performed By: #### 5 7021-8 #### LOW SWIFT ([id number]) [facility] ([facility] [address] [place] [address] Erythrocyte distribution width (RBC) [Ratio] 12.9 % Normal 11.5-14.5 [facility] Comment on above: Performed By: #### 5 7021-8 #### LOW SWIFT ([id number]) [facility] ([facility] [address] [place] [address] Hematocrit (Bld) [Volume fraction] 44.2 % Normal 36.0-46.0 [facility] Comment on above: Performed By: #### 5 7021-8 #### LOW SWIFT ([id number]) [facility] ([facility] [address] [place] [address] Hemoglobin (Bld) [Mass/Vol] 14.0 g/dL Normal 12.0-16.0 [facility] Comment on above: Performed By: #### 5 7021-8 #### LOW SWIFT ([id number]) [facility] ([facility] [address] [place] [address] Immature granulocytes (Bld) [#/Vol] 0.03 x10*3/uL Normal 0.00-0.50 [facility] Comment on above: Performed By: #### 5 7021-8 #### LOW SWIFT ([id number]) [facility] ([facility]) [id number] [place] [address] Immature granulocytes/100 WBC (Bld) 0.4 % Normal 0.0-0.9 [facility] Comment on above: Result Comment: Bina ture Granulocyte Count (IG) includes promyelocytes, myelocytes and metamyelocytes but does not include bands. Percent differential counts (%) should be interpreted in the context of the absolute cell counts (cells/UL). Performed By: #### 5 7021-8 #### LOW SWIFT ([id number]) [facility] ([facility] [id number] [place] [address] Lymphocytes (Bld) [#/Vol] 1.01 x10*3/uL Normal 0.80-3.00 [facility] Comment on above: Performed By: #### 5 7021-8 #### LOW SWIFT ([id number]) [facility] ([facility]) [address] [place] [address] Lymphocytes/100 WBC (Bld) 13.5 % Normal 13.0-44.0 [facility] Comment on above: Performed By: #### 5 7021-8 #### LOW SWIFT ([id number]) [facility] ([facility]) [address] [place] [address] MCH (RBC) [Entitic mass] 29.5 pg Normal 26.0-34.0 [facility] Comment on above: Performed By: #### 5 7021-8 #### LOW SWIFT ([id number]) [facility] ([facility]) [address] [place] [address] MCHC (RBC) [Mass/Vol] 31.7 g/dL Low 32.0-36.0 [facility] Comment on above: Performed By: #### 5 7021-8 #### LOW SWIFT (60779) [facility] ([facility]) [address] [place] [address] MCV (RBC) [Entitic vol] 93 fL Normal 80-100 [facility] Comment on above: Performed By: #### 5 7021-8 #### LOW SWIFT (23412) [facility] ([facility] [address] [place] [address] Monocytes (Bld) [#/Vol] 0.77 x10*3/uL Normal 0.05-0.80 [facility] Comment on above: Performed By: #### 5 7021-8 #### LOW SWIFT ([id number]) [facility] ([facility] [address] [place] [address] Monocytes/100 WBC (Bld) 10.3 % Normal 2.0-10.0 [facility] Comment on above: Performed By: #### 5 7021-8 #### LOW SWIFT ([id number]) [facility] ([facility]) [id number] [place] [address] Neutrophils (Bld) [#/Vol] 5.36 x10*3/uL Normal 1.60-5.50 [facility] Comment on above: Result Comment: Perc ent differential counts (%) should be interpreted in the context of the absolute cell counts (cells/uL). Performed By: #### 5 7021-8 #### LOW SWIFT ([id number]) [facility] ([facility]) [address] [place] [address] Neutrophils/100 WBC (Bld) 71.4 % Normal 40.0-80.0 [facility] Comment on above: Performed By: #### 5 7021-8 #### LOW SWIFT ([id number]) [facility] ([facility] [address] [place] [address] Nucleated RBC/100 WBC (Bld) [Ratio] 0.0 /100 WBCs Normal 0.0-0.0 [facility] Comment on above: Performed By: #### 5 7021-8 #### LOW SWIFT ([id number]) [facility] ([facility] [address] [place] [address] Platelets (Bld) [#/Vol] 193 x10*3/uL Normal 150-450 [facility] Comment on above: Performed By: #### 5 7021-8 #### LOW SWIFT ([id number]) [facility] ([facility]) [address] [place] [address] RBC (Bld) [#/Vol] 4.74 x10*6/uL Normal 4.00-5.20 [facility] Comment on above: Performed By: #### 5 7021-8 #### LOW SWIFT ([id number]) [facility] ([facility] [address] [place] [address] WBC (Bld) [#/Vol] 7.5 x10*3/uL Normal 4.4-11.3 [facility] Comment on above: Performed By: #### 5 7021-8 #### LOW SWIFT (24905) [facility] ([facility] [address] [place] [address] Comprehensive metabolic 2000 panelon 10-15-2024 Albumin BCP dye [Mass/Vol] 4 g/dL 3.4 - 5.0 g/dL [facility] ALP [Catalytic activity/Vol] 49 U/L 33 - 136 U/L [facility] ALT With P-5'-P [Catalytic activity/Vol] 11 U/L 7 - 45 U/L [facility] Comment on above: Patients treated wit h Sulfasalazine may generate falsely decreased results for ALT. Anion gap [Moles/Vol] 12 mmol/L 10 - 2 0 mmol/L [facility] AST With P-5'-P [Catalytic activity/Vol] 14 U/L 9 - 39 U/L [facility] Bilirubin [Mass/Vol] 1.5 mg/dL High 0.0 - 1 .2 mg/dL [facility] Calcium [Mass/Vol] 9.7 mg/dL 8.6 - 10. 3 mg/dL [facility] Chloride [Moles/Vol] 106 mmol/L 98 - 10 7 mmol/L [facility] CO2 [Moles/Vol] 28 mmol/L 21 - 32 mmol/L [facility] Creatinine [Mass/Vol] 1.09 mg/dL High 0.50 - 1.05 mg/dL [facility] GFR/1.73 sq M.predicted among non-blacks MDRD (S/P/Bld) [Vol rate/Area] 52 mL/min/{1.73_m2} Low - PINF [facility] Comment on above: Calculations of karla mated GFR are performed using the 2020 CKD-EPI Study Refit equation without the race variable for the IDMS-Traceable creatinine methods. https://jasn.asnjournals.org/content/early/ASN.638297 1676 Glucose [Mass/Vol] 81 mg/dL 74 - 99 mg/dL [facility] Interpretation and review of laboratory results Abnormal [facility] Potassium [Moles/Vol] 4.3 mmol/L 3.5 - 5.3 mmol/L [facility] Protein [Mass/Vol] 5.8 g/dL Low 6.4 - 8.2 g/dL [facility] Sodium [Moles/Vol] 142 mmol/L 136 - 145 mmol/L [facility] Urea nitrogen [Mass/Vol] 17 mg/dL 6 - 23 mg/dL [facility] Albumin BCP dye [Mass/Vol] 4.0 g/dL Normal 3.4-5.0 [facility] Comment on above: Performed By: #### 2 4323-8 #### LOW SWIFT (35619) [facility] ([facility] [address] [place] [address] ALP [Catalytic activity/Vol] 49 U/L Normal 33-136 [facility] Comment on above: Performed By: #### 2 4323-8 #### LOW SWIFT (77532) [facility] ([facility] [address] [place] [address] ALT With P-5'-P [Catalytic activity/Vol] 11 U/L Normal 7-45 [facility] Comment on above: Result Comment: Shabnam ents treated with Sulfasalazine may generate falsely decreased results for ALT. Performed By: #### 2 4323-8 #### LOW SWIFT (44141) [facility] ([facility] [address] [place] [address] Anion gap [Moles/Vol] 12 mmol/L Normal 10-20 [facility] Comment on above: Performed By: #### 2 4323-8 #### LOW SWIFT (39647) [facility] ([facility] [address] [place] [address] AST With P-5'-P [Catalytic activity/Vol] 14 U/L Normal 9-39 [facility] Comment on above: Performed By: #### 2 4323-8 #### LOW SWIFT (30397) [facility] ([facility] [address] [place] [address] Bilirubin [Mass/Vol] 1.5 mg/dL High 0.0-1.2 [facility] Comment on above: Performed By: #### 2 4323-8 #### LOW SWIFT (16829) [facility] ([facility] [address] [place] [address] Calcium [Mass/Vol] 9.7 mg/dL Normal 8.6-10.3 [facility] Comment on above: Performed By: #### 2 4323-8 #### LOW SWIFT (07349) [facility] ([facility] [address] [place] [address] Chloride [Moles/Vol] 106 mmol/L Normal 98-107 [facility] Comment on above: Performed By: #### 2 4323-8 #### LOW SWIFT (46411) [facility] ([facility] [address] [place] [address] CO2 [Moles/Vol] 28 mmol/L Normal 21-32 [facility] Comment on above: Performed By: #### 2 4323-8 #### LOW SWIFT (16917) [facility] ([facility] [address] [place] [address] Creatinine [Mass/Vol] 1.09 mg/dL High 0.50-1.05 [facility] Comment on above: Performed By: #### 2 4323-8 #### LOW SWIFT (88171) [facility] ([facility]) [address] [place] [address] Glomerular filtration rate/1.73 sq M.predicted 52 mL/min/1.73m*2 Low >60 [facility] Comment on above: Result Comment: Calc ulations of estimated GFR are performed using the 2020 CKD-EPI Study Refit equation without the race variable for the IDMS-Traceable creatinine methods. https://jasn.asnjournals.org/content/early/ASN.530713 4953 Performed By: #### 2 4323-8 #### LOW SWIFT (84467) [facility] ([facility] [address] [place] [address] Glucose [Mass/Vol] 81 mg/dL Normal 74-99 [facility] Comment on above: Performed By: #### 2 4323-8 #### LOW SWIFT (75502) [facility] ([facility] [address] [place] [address] Potassium [Moles/Vol] 4.3 mmol/L Normal 3.5-5.3 [facility] Comment on above: Performed By: #### 2 4323-8 #### LOW SWIFT (10772) [facility] ([facility] [address] [place] [address] Protein [Mass/Vol] 5.8 g/dL Low 6.4-8.2 [facility] Comment on above: Performed By: #### 2 4323-8 #### LOW SWIFT (89883) [facility] ([facility] [address] [place] [address] Sodium [Moles/Vol] 142 mmol/L Normal 136-145 [facility] Comment on above: Performed By: #### 2 4323-8 #### LOW SWIFT (43560) [facility] ([facility] [address] [place] [address] Urea nitrogen [Mass/Vol] 17 mg/dL Normal 6-23 [facility] Comment on above: Performed By: #### 2 4323-8 #### LOW SWIFT (04841) [facility] ([facility] [address] [place] [address] ECG 12 Leadon 09-09-2024 Normal sinus rhythm, normal EKG. compared to the EKG from January 2023, inferior T wave abnormality has resolved [facility] Work Phone: No Panel Informationon 09-05 [facility] Estimated glomerular filtrat ion rate (GFR) non- Americanon 07-04-2024 GFR/1.73 sq M.predicted among non-blacks MDRD (S/P/Bld) [Vol rate/Area] 46 mL/min/{1.73_m2} Low >=60 [facility] - Chemistry and C hemistry - challengeon 07-04-2024 Creatinine [Mass/Vol] 1.14 mg/dL High 0.55-1.02 [facility] GFR/1.73 sq M.predicted MDRD (S/P/Bld) [Vol rate/Area] 56 mL/min/{1.73_m2} Low >=60 [facility] Body fluid differential cell countOrdered By: Dayanna Lobo on 01-22-2024 Differential panel (Body fld) 44 % [facility] Comment on above: The reference interv al and other method performance specifications have not been established for this body fluid. The test result must be integrated into the clinical context for interpretation. Cell Count/Diff, Fluidon Appearance, Fluid Hazy Normal [facility] Comment on above: Order Comment: Body Fluid Source: Other (Name in the Site) Body Fluid Site: RML Result Comment: The reference interval and other method performance specifications have not been established for this body fluid. The test result must be integrated into the clinical context for interpretation. Performed By: #### F LCCDIFF #### [address] Order Comment: Body Fluid Source: Other (Name in the Site) Body Fluid Site: Rul Color, Fluid Straw Normal [facility] Comment on above: Order Comment: Body Fluid Source: Other (Name in the Site) Body Fluid Site: RML Result Comment: The reference interval and other method performance specifications have not been established for this body fluid. The test result must be integrated into the clinical context for interpretation. Performed By: #### F LCCDIFF #### [address] Order Comment: Body Fluid Source: Other (Name in the Site) Body Fluid Site: Rul Color, Fluid Supernatant Straw Normal [facility] Comment on above: Order Comment: Body Fluid Source: Other (Name in the Site) Body Fluid Site: RML Result Comment: The reference interval and other method performance specifications have not been established for this body fluid. The test result must be integrated into the clinical context for interpretation. Performed By: #### F LCCDIFF #### [address] Order Comment: Body Fluid Source: Other (Name in the Site) Body Fluid Site: Rul Eosinophils, Fluid 2 /100{WBC} Normal 0-3 [facility] Comment on above: Order Comment: Body Fluid Source: Other (Name in the Site) Body Fluid Site: RML Result Comment: PERF ORMED BY: [place] [address] PATHOLOGIST LACE INSPECTOR CRISTHIAN REYEZ M.D. Performed By: #### F LCCDIFF #### [address] Order Comment: Body Fluid Source: Other (Name in the Site) Body Fluid Site: Rul Lymphocytes, Fluid 13 % Normal [facility] Comment on above: Order Comment: Body Fluid Source: Other (Name in the Site) Body Fluid Site: RML Result Comment: The reference interval and other method performance specifications have not been established for this body fluid. The test result must be integrated into the clinical context for interpretation. Performed By: #### F LCCDIFF #### [facility] [address] [id number] [facility] Lymphocytes, Fluid 11 % Normal [facility] Comment on above: Order Comment: Body Fluid Source: Other (Name in the Site) Body Fluid Site: Rul Result Comment: The reference interval and other method performance specifications have not been established for this body fluid. The test result must be integrated into the clinical context for interpretation. Performed By: #### F LCCDIFF #### [address] [id number] [facility] Monocytes/Macrophages , Fluid 44 % Normal [facility] Comment on above: Order Comment: Body Fluid Source: Other (Name in the Site) Body Fluid Site: RML Result Comment: The reference interval and other method performance specifications have not been established for this body fluid. The test result must be integrated into the clinical context for interpretation. Performed By: #### F LCCDIFF #### [address] [id number] [place] Monocytes/Macrophages , Fluid 45 % Normal [facility] Comment on above: Order Comment: Body Fluid Source: Other (Name in the Site) Body Fluid Site: Rul Result Comment: The reference interval and other method performance specifications have not been established for this body fluid. The test result must be integrated into the clinical context for interpretation. Performed By: #### F LCCDIFF #### [address] [place] [id number] [facility] Neutrophil, Fluid 41 % Normal [facility] Comment on above: Order Comment: Body Fluid Source: Other (Name in the Site) Body Fluid Site: RML Result Comment: The reference interval and other method performance specifications have not been established for this body fluid. The test result must be integrated into the clinical context for interpretation. Performed By: #### F LCCDIFF #### [facility] [address] [place], [place] [id number] [place] Neutrophil, Fluid 42 % Normal [facility] Comment on above: Order Comment: Body Fluid Source: Other (Name in the Site) Body Fluid Site: Rul Result Comment: The reference interval and other method performance specifications have not been established for this body fluid. The test result must be integrated into the clinical context for interpretation. Performed By: #### F LCCDIFF #### [facility] [address] RBC, Fluid 2329 [facility] Comment on above: Order Comment: Body Fluid Source: Other (Name in the Site) Body Fluid Site: RML Result Comment: The reference interval and other method performance specifications have not been established for this body fluid. The test result must be integrated into the clinical context for interpretation. Performed By: #### F LCCDIFF #### [address] RBC, Fluid 2399 [facility] Comment on above: Order Comment: Body Fluid Source: Other (Name in the Site) Body Fluid Site: Rul Result Comment: The reference interval and other method performance specifications have not been established for this body fluid. The test result must be integrated into the clinical context for interpretation. Performed By: #### F LCCDIFF #### [address] TNC, Body Fluid 163 [facility] Comment on above: Order Comment: Body Fluid Source: Other (Name in the Site) Body Fluid Site: RML Result Comment: The reference interval and other method performance specifications have not been established for this body fluid. The test result must be integrated into the clinical context for interpretation. Performed By: #### F LCCDIFF #### [facility] [address] [place] [address] TNC, Body Fluid 352 [facility] Comment on above: Order Comment: Body Fluid Source: Other (Name in the [facility]) Body Fluid Site: Rul Result Comment: The reference interval and other method performance specifications have not been established for this body fluid. The test result must be integrated into the clinical context for interpretation. Performed By: #### F LCCDIFF #### [address] Cells Counted Total [#] in B fredy fluidOrdered By: Dayanna Lobo on 01-22-2024 Cells Counted Total (Body fld) [#] 163 mm^3 [facility] Comment on above: The reference interv al and other method performance specifications have not been established for this body fluid. The test result must be integrated into the clinical context for interpretation. Color of Spun Body fluidOrde red By: Dayanna Lobo on 01-22-2024 Color (Spun body fld) [facility] Comment on above: The reference interv al and other method performance specifications have not been established for this body fluid. The test result must be integrated into the clinical context for interpretation. Determination of appearance of body fluidOrdered By: Dayanna Lobo on 01-22-2024 Appearance (Body fld) Hazy [facility] Comment on above: The reference interv al and other method performance specifications have not been established for this body fluid. The test result must be integrated into the clinical context for interpretation. Erythrocytes [#/volume] in B fredy fluid by Automated countOrdered By: Dayanna Lobo on 01-22-2024 RBC Auto (Body fld) [#/Vol] 2329 mm^3 [facility] Comment on above: The reference interv al and other method performance specifications have not been established for this body fluid. The test result must be integrated into the clinical context for interpretation. Evaluation of color of body fluidOrdered By: Dayanna Lobo on 01-22-2024 Color (Body fld) [facility] Comment on above: The reference interv al and other method performance specifications have not been established for this body fluid. The test result must be integrated into the clinical context for interpretation. Alex 01-22-2024 L Specimen: [id number] Received: 01/23/24 Status: [facility] Re Num: [id number] Spec Type: Cytology Subm Dr: Dayanna Lobo, Tissues: A BRONWASH (BRONCH) B BRONWASH (R UPPER LOBE) C BRONWASH (R MIDDLE LOBE) Procedures: HE/6, Gross/Micro L4/3, Cyto Prepstain/3, PAPSTN/3 Age/ Patient Sex Location Account Attending Physician Pilo Gregory 78/F [facility] [id number] Dayanna Lobo DO SPEC NUM: [id number] RECD: 01/23/24 STATUS: CLAUDIA LOVE NUM: [id number] MARK: 01/22/24- SUBM DR: Dayanna Lobo DO ENTERED: 01/23/24-1130 [facility] DR: Elisabeth Zarate SPEC TYPE: Cytology DEPT: [facility] ENTERED BY: [id number] RECV BY: [id number] ORDERED: HE/6, Gross/Micro L4/3, Cyto Prepstain/3, PAPSTN/3 [...] 1 cell blocks are prepared. (CC/nh) Specimen: BC Received: 01/23/24 Status: CLAUDIA Love Num: [id number] Spec Type: Cytology Subm Dr: Dayanna Lobo DO Tissues: A BRONWASH (BRONCH) B BRONWASH (R UPPER LOBE) C BRONWASH (R MIDDLE LOBE) Procedures: HE/6, Gross/Micro L4/3, Cyto Prepstain/3, PAPSTN/3 Patient: Pilo Gregory [id number] (Continued) Specimen: BC Received: 01/23/24 (Continued) Gross Description (Continued) Signed (signature on file) Nitesh Chambers MD 01/24/24 1406 Specimen: Received: 01/23/24 Status: LCAUDIA Love Num: [id number] Spec Type: Cytology Subm Dr: Dayanna Lobo DO Tissues: A BRONWASH (BRONCH) B BRONWASH (R UPPER LOBE) C BRONWASH (R MIDDLE LOBE) Procedures: HE/6, Gross/Micro L4/3, Cyto Prepstain/3, PAPSTN/3 Patient: Pilo Gregory [id number] (Continued) Specimen: BC Received: 01/23/24 (Continued) Gross Description (Continued) C. Received fresh labeled with the patient's name, date of and R upper lobe lavage is 5 ml rico cloudy unfixed fluid. 1 Thin Prep slides are prepared. 1 cell blocks are prepared. (CC/nh) Specimen: Received: 01/23/24 Status: CLAUDIA Love Num: [id number] Spec Type: Cytology Subm Dr: Dayanna Lobo DO Tissues: A BRONWASH (BRONCH) B BRONWASH (R UPPER LOBE) C BRONWASH (R MIDDLE LOBE) Procedures: HE/6, Gross/Micro L4/3, Cyto Prepstain/3, PAPSTN/3 Patient: Pilo Gregory [id number] (Continued) Signed (signature on file) Nitesh Chambers MD 01/24/24 1406 Normal [facility] Manual body fluid eosinophil s/100 leukocytesOrdered By: Dayanna Lobo on 01-22-2024 Eosinophils/100 WBC Manual cnt (Body fld) 2 /100{WBC} 0-3 [facility] Manual body fluid lymphocyte s/100 leukocytesOrdered By: Dayanna Lobo on 01-22-2024 Lymphocytes/100 WBC Manual cnt (Body fld) 13 % [facility] Comment on above: The reference interv al and other method performance specifications have not been established for this body fluid. The test result must be integrated into the clinical context for interpretation. Neutrophils/100 WBC Manual c nt (Body fld)Ordered By: Dayanna Lobo on 01-22-2024 Neutrophils/100 WBC (Body fld) 41 % [facility] Comment on above: The reference interv al and other method performance specifications have not been established for this body fluid. The test result must be integrated into the clinical context for interpretation. A. flavus Ab Immune diff Ql (S)on 01-01-2024 Aspergillus flavus Antibody Negative Neg:<1:1 [facility] A. niger IgE Qn (S)on 2023 Aspergillus niger Antibody Negative Neg:<1:1 [facility] Comment on above: Performed at: [facility] [address] [id number] Director: Skylar Ortega MD, Phone: [phone] Performed at: [facility] [address] [id number] Director: Skylar Ortega MD, Phone: [phone] Adenosine monophosphate.cycl ic [Moles/Vol]on 01-01-2024 Cyclic Citrullinated Peptid IgG/IgA 0 units 0-19 [facility] Comment on above: Negative <20 Weak po sitive 20 - 39 Moderate positive 40 - 59 Strong positive >59Performed at: [facility] [id number] Director: Garcaí Salcedo PhD, Phone: [phone] Negative <20 Weak po sitive 20 - 39 Moderate positive 40 - 59 Strong positive >59Performed at: [facility] [id number] Director: García Salcedo PhD, Phone: [phone] Atypical perinuclear antineu trophil cytoplasmic antibodies measurementon 01-01-2024 Neutrophil cytoplasmic Ab.perinuclear.atypic al IF (S) [Titer] <1:20 titer Neg:<1:20 [facility] Comment on above: Serum is slightly he molyzedThe atypical pANCA pattern has been observed in asignificant percentage of patients with ulcerative colitis,primary sclerosing cholangitis and autoimmune hepatitis.Performed at: [facility] [address] [id number] Director: Skylar Ortega MD, Phone: [phone] at: [employer] [address] [id number] Director: García Salcedo PhD, Phone: [phone] Cefuroxime free [Mass/Vol]on 01-01-2024 Anti-Nuclear Antibody Profile Negative Negative [facility] Comment on above: Performed at: [facility] [address] [id number] Director: García Salcedo PhD, Phone: [phone] Performed at: [facility] [address] [id number] Director: García Salcedo PhD, Phone: [phone] Performed at: [address] [id number] Director: García Salcedo PhD, Phone: [phone] Performed at: [address] [id number] Director: García Salcedo PhD, Phone: [phone] H. capsulatum Ab CF Ql (S)on 01-01-2024 Histoplasma Mycelial Ab (Comp Fix) Negative Neg:<1:2 [facility] Histoplasma Yeast Ab (Comp Fix) Negative Neg:<1:2 [facility] Comment on above: Performed at: [address] [id number] Director: Skylar Ortega MD, Phone: [phone] Performed at: [address] [id number] Director: Skylar Ortega MD, Phone: [phone] Performed at: [address] [id number] Director: Skylar Ortega MD, Phone: [phone] Laboratory - Hematology and Cell countson 01-01-2024 ESR (Bld) [Velocity] 25 mm/h <=30 [facility] Myeloperoxidase Ab [Units/vo lume] in Serum by Immunoassayon 01-01-2024 Myeloperoxidase Ab IA Qn (S) <0.2 units 0.0-0.9 [facility] No Panel Informationon 12-31 Histoplasma Galactomannan Antigen Negative <0.5 ng/mL [facility] Comment on above: This test was develo ped and its performance characteristicsdetermined by [facility]. It has not been cleared orapproved by the Food and Drug Administration.Performed at: [facility] [employer] [place] [address], [place] [id number] Director: Lori Green MD, Phone: [phone] Aspergillus fumigatus Antibody Negative Neg:<1:1 [facility] Blastomyces dermatitidis Antibody Negative Neg:<1:1 [facility] Comment on above: Performed at: [facility] [address] [place], [place] [id number] Director: Skylar Ortega MD, Phone: [phone] C-Reactive Protein, Quantitative 1.37 mg/dL <=0.50 [facility] Perinuclear ANCA (p-ANCA) Antibody <1:20 titer Neg:<1:20 [facility] Comment on above: Serum is slightly he molyzedThe presence of positive fluorescence exhibiting P-ANCA orC-ANCA patterns alone is not specific for the diagnosis ofWegener's Granulomatosis (WG) or microscopic polyangiitis.Decisions about treatment should not be based solely onANCA IFA results. The International ANCA Group Consensusrecommends follow up testing of positive sera with both PA-3 and MPO-ANCA enzyme immunoassays. As many as 5% serumsamples are positive only by EIA. Ref. AM J Clin [id number];111:507-513. Proteinase 3 Ab [Units/volum e] in Serum by Immunoassayon 01-01-2024 Proteinase 3 Ab IA Qn (S) <0.2 units 0.0-0.9 [facility] SCL-70 extractable nuclear A b IA Qn (S)on 01-01-2024 Scl-70 (Scleroderma) Antibody <0.2 AI 0.0-0.9 [facility] Serum angiotensin converting enzyme (MOJGAN) measurementon 01-01-2024 Angiotensin converting enzyme [Catalytic activity/Vol] 63 U/L 14-82 [facility] Comment on above: Performed at: [facility] [address] [id number] Director: García Salcedo PhD, Phone: [phone] Serum classic neutrophil cyt oplasmic antibody titer by immunofluorescenceon 01-01-2024 Neutrophil cytoplasmic Ab.classic IF (S) [Titer] <1:20 titer Neg:<1:20 [facility] Comment on above: Serum is slightly he molyzed Serum or plasma rheumatoid f actor measurement (units/volume)on 01-01-2024 Rheumatoid factor Qn 10.3 [IU]/mL <14.0 [facility] Comment on above: Performed at: [facility] [address], [place] [id number] Director: García Salcedo PhD, Phone: [phone] CT CARDIAC SCORINGon CT CARDIAC SCORING Addendum Begins Patient Name: [...] STRUCTURES ARE THE SOLE RESPONSIBILITY OF THE NETSUITE CONSULTANT SUBMITTING THE ORIGINAL REPORT (NOT THIS ADDENDUM) Electronically signed by: SUKHJINDER MOONEY MD Addendum Ends Patient Name: PILO GREGORY STUDY: CT CARDIAC SCORING; 03/24/2023 10:58 am INDICATION: htn, hyperlipedmia E78.5: Hyperlipidemia R07.89: Chest tightness. COMPARISON: None. ACCESSION NUMBER(S): [id number] ORDERING CLINICIAN: KATHLEEN CASTRO TECHNIQUE: Using prospective ECG gating, CT [...] using link below https://www.link-nhlbi.org /MESACHDRisk/MesaRiskScore /RiskScore.aspx Kirsten et al. JACC 2014 (http://dx.doi.org/10.1016 /j.j acc.2015.08.035) Reading Insurance Claims Specialist: Dr. Valerio Morris, Date: 03/24/2023 11:23 am Electronically signed by: SUKHJINDER MOONEY MD Normal [facility] CT Cardiac Scoringon 023 CT Cardiac Scoring Normal [facility] 250 DO Work Phone: Tobacco Screening.on 023 Tobacco use status HS b) No [facility] 250 DO Work Phone: NOH CARDIAC STRESS/REST INJE CTIONon 03-01-2023 NOH CARDIAC STRESS/REST INJECTION Patient Name: PILO GREGORY STUDY: MYOCARDIAL PERFUSION STRESS TEST WITH EXERCISE CONVERTED TO LEXISCAN Performing facility: [facility], [address] [place] [address] St, [address], [place] [address] [facility] Provider: Kathleen Castro MD, [facility] PCP: Dr. Ellis Tomlin Supervising provider: Patti Auguste MD, [facility] INDICATION: Dyspnea Chest tightness HISTORY: Gender: F; Age: 77 y/o ; Height: 0 cm; Weight: 0 kg. Chest Pain; High Cholesterol; SOB; Denies smoking. COMPARISON: No comparison. ACCESSION NUMBER(S): [id number]; [id number]; [id number] ORDERING CLINICIAN: KATHLEEN CASTRO TECHNIQUE: ONE DAY protocol. Stress injection: [...] are available for comparison. Electronically signed by: PATTI AUGUSTE MD Normal [facility] No Panel Informationon 03-01 Normal -[facility] 250 DO Work Phone: LIPID PROFILEon 02-27-2023 CHOL-HDL RATIO NORM SEE BELOW Normal [facility] Comment on above: Result Comment: 3.3 - 4.4 LOW RISK 4.4 - 7.1 AVERAGE RISK 7.1 - 11.0 MODERATE RISK >11.0 HIGH RISK Performed By: #### L IPID #### [facility] [address] [address] [address] Krystle Clement Cholesterol [Mass/Vol] 211 mg/dL Critically high <=200 [facility] Comment on above: Performed By: #### L IPID #### [facility] [address] [address] [address] Krystle Clement Cholesterol in HDL [Mass/Vol] 52 mg/dL Normal 40-60 [facility] Comment on above: Performed By: #### L IPID #### [facility] [address] [address] [address] Krystle Clement Cholesterol in LDL [Mass/Vol] 143.0 mg/dL Normal [facility] Comment on above: Performed By: #### L IPID #### [facility] [address] [place], [place] [address] Dr. Krystle Clement Cholesterol.total/Cho lesterol in HDL [Mass ratio] 4.1 {ratio} Normal [facility] Comment on above: Performed By: #### L IPID #### [facility] [address] [place], [place] [address] Dr. Krystle Clement HDL NORMAL > or = 60 mg/dl - LO W CARDIOVASCULAR RISK <40 mg/dl - HIGH CARDIOVASCULAR RISK Normal [facility] Comment on above: Performed By: #### L IPID #### [facility] [id number] Krystle Clement LDL CALC NORMAL SEE BELOW Normal [facility] Comment on above: Result Comment: <100 mg/dl OPTIMAL 100 - 129 mg/dl NEAR OR ABOVE OPTIMAL 130 - 159 mg/dl BORDERLINE HIGH 160 - 189 mg/dl HIGH >190 mg/dl VERY HIGH Performed By: #### L IPID #### [facility] [address] [address] [address] Krystle Clement Triglyceride [Mass/Vol] 80 mg/dL Normal <=150 [facility] Comment on above: Performed By: #### L IPID #### [facility] [address] [place], [place] [address] Dr. Krystle Clement VLDL CALC 16.0 mg/dL Normal [facility] Comment on above: Performed By: #### L IPID #### [facility] [address] [address] [address] Krystle Clement Office Visit (Cardiology)on 02-13-2023 [...] Order; Status:Hold For - Scheduling,Retrospective Authorization; Requested for:[id number]; Radiologist to Determine Optimal Study : Y What are the patient's signs and symptoms? : dyspnea chest tightness Chest tightness, Dyspnea, Hyperlipidemia Lipid Panel; Status:Active - Retrospective Authorization; Requested for:[id number]; Class 1 obesity with body mass index (BMI) of 30.0 to 30.9 in adult Healthy Weight Tips; Status:Complete - Retrospective Authorization; Done: [id number] Some eating tips that can help you lose weight.; Status:Complete - Retrospective Authorization; Done: [id number] Dyspnea IO EKG Electrocardiogram- 12 Lead; Status:Complete; Done: [id number] SocHx: Never a smoker Tobacco Use Screening; Status:Complete; Done: [id number] Tobacco Use Screening; Status:Complete; Done: [id number] Patient Instructions Please bring all medicines, vitamins, [...] times, but not consistently, and that the pre parole counseling aide felt that her shortness of breath is [...] echocardiogram that was done on 01/16/2023 at [facility]. Assessment: 1. 77-year-old with exertional shortness of breath and a decrease in functional capacity-I would say she is functional class II right now, but her baseline activity level was excellent for her age, still it is above average. 2. Chronic kidney disease stage IIIa GFR 40 04 January 2023 3. Personal history of COVID with pneumonia 2020 4. 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 Echocardiogram December 2022-LVEF 65% mild aortic [...] long hist (more content not included)... Normal [facility] Tobacco Screening.on 023 Adult depression screening assessment No [facility] 250 DO Work Phone: Fall risk assessment a) No falls within the last year [facility] 250 DO Work Phone: Tobacco use status [facility] b) No [facility] 250 DO Work Phone: ECHOCARDIO M/2D COMPLETEon 0 3-20-2023 ECHOCARDIO M/2D COMPLETE Patient: PILO GREGORY Exam Date: 01/16/2023 : 1945 Gender:F Ordering : DR ALEXANDER TOMLIN M.D. Admission #: [id number] Family : Order #: [id number] CLICK HERE TO VIEW EXAM ECHOCARDIOGRAM REPORT [...] Stern M.D. on 01/16/2023 at 14:53 Normal [facility] B-Type Natriuretic Peptideon 01-04-2023 B-Type Natriuretic Peptide see note [employer] Other B-Type Natriuretic Peptide 582.0 pg/ml <=1,800.0 pg/ml [employer] Other BNPon 01-04-2023 Natriuretic peptide B (Bld) [Mass/Vol] 582.0 pg/mL Normal <=1,800.0 [facility] Comment on above: Performed By: #### B TRAIN OPERATIONS SUPERVISOR, BMP #### [facility] [address] [address] [address] Krystle Clement CBC AUTO DIFFon 01-04-2023 BASO # 0.0 103/ul Normal 0.0-0.1 [facility] Comment on above: Performed By: #### C BC #### [facility] [address] [place] [address] Dr. Krystle Clement Basophils/100 WBC (Bld) 0.7 % Normal 0.2-2.0 [facility] Comment on above: Performed By: #### C BC #### [facility] [address] [place] [address] Dr. Krystle Clement EO # 0.4 103/ul Normal 0.0-0.7 [facility] Comment on above: Performed By: #### C BC #### [facility] [address] [place] [address] Dr. Krystle Clement Eosinophils/100 WBC (Bld) 5.7 % Normal 0.9-7.0 [facility] Comment on above: Performed By: #### C BC #### [facility] [address] [place] [address] Dr. Krystle Clement Erythrocyte distribution width (RBC) [Ratio] 12.9 % Normal 11.0-15.0 [facility] Comment on above: Performed By: #### C BC #### [facility] [address] [place] [address] Dr. Krystle Clement Hematocrit (Bld) [Volume fraction] 44.3 % Normal 36.0-48.0 [facility] Comment on above: Performed By: #### C BC #### [facility] [address] [place] [address] Dr. Krystle lCement Hemoglobin (Bld) [Mass/Vol] 15.0 g/dL Normal 12.0-16.0 [facility] Comment on above: Performed By: #### C BC #### [facility] [address] [place] [address] Dr. Krystle Clement IG # 0.02 10e3/ul Normal 0.00-0.03 [facility] Comment on above: Performed By: #### C BC #### [facility] [address] [place] [address] Dr. Krystle Clement IG % 0.3 % Normal 0.0-0.5 [facility] Comment on above: Performed By: #### C BC #### [facility] [address] [place] [address] Dr. Krystle Clement LYMPH # 1.1 103/ul Critically low 1.2-3.8 [facility] Comment on above: Performed By: #### C BC #### [facility] [address] [place] [address] Dr. Krystle Clement Lymphocytes/100 WBC (Bld) 18.1 % Critically low 20.5-60.0 [facility] Comment on above: Performed By: #### C BC #### [facility] [address] [place] [address] Dr. Krsytle Clement MANUAL DIFF REQ NO Normal [facility] Comment on above: Performed By: #### C BC #### [facility] [address] [place] [address] Dr. Krystle Clement MCH (RBC) [Entitic mass] 30.9 pg Normal 26.7-34.0 [facility] Comment on above: Performed By: #### C BC #### [facility] [address] [place] [address] Dr. Krystle Clement MCHC (RBC) [Mass/Vol] 33.9 g/dL Normal 29.9-35.2 [facility] Comment on above: Performed By: #### C BC #### [facility] [address] [place] [address] Dr. Krystle Clement MCV (RBC) [Entitic vol] 91.3 fL Normal 81.0-99.0 [facility] Comment on above: Performed By: #### C BC #### [facility] [address] [place] [address] Dr. Krystle Clement MONO # 0.7 103/ul Normal 0.3-0.8 [facility] Comment on above: Performed By: #### C BC #### [facility] [address] [place] [address] Dr. Krystle Clement Monocytes/100 WBC (Bld) 11.7 % Normal 1.7-12.0 [facility] Comment on above: Performed By: #### C BC #### [facility] [address] [place] [address] Dr. Krystle Clement NEUT # 3.9 103/ul Normal 1.4-6.5 [facility] Comment on above: Performed By: #### C BC #### [facility] [address] [place] [address] Dr. Krystle Clement Neutrophils/100 WBC (Bld) 63.5 % Normal 43.0-75.0 [facility] Comment on above: Performed By: #### C BC #### [facility] [address] [place] [address] Dr. Krystle Clement Platelet mean volume (Bld) [Entitic vol] 8.8 fL Critically low 9.5-13.5 [facility] Comment on above: Performed By: #### C BC #### [facility] [address] [place] [address] Dr. Krystle Clement PLT 232 103/ul Normal 150-450 [facility] Comment on above: Performed By: #### C BC #### [facility] [address] [place] [address] Dr. Krystle Clement RBC 4.85 106/ul Normal 4.20-5.40 [facility] Comment on above: Performed By: #### C BC #### [facility] [address] [place] [address] Dr. Krystle Clement WBC 6.1 103/ul Normal 4.0-11.0 [facility] Comment on above: Performed By: #### C BC #### [facility] [address] [place] [address] Dr. Krystle Clement PROF CHEM 8 (BAS METB)on Anion gap [Moles/Vol] 11.6 mmol/L Normal [facility] Comment on above: Performed By: #### B TRAIN OPERATIONS SUPERVISOR, BMP #### [facility] [address] [place] [address] Dr. Krystle Clement Calcium [Mass/Vol] 9.5 mg/dL Normal 8.5-10.1 [facility] Comment on above: Performed By: #### B TRAIN OPERATIONS SUPERVISOR, BMP #### [facility] [address] [place] [address] Dr. Krystle Clement Chloride [Moles/Vol] 110 mmol/L Critically high 98-107 [facility] Comment on above: Performed By: #### B TRAIN OPERATIONS SUPERVISOR, BMP #### [facility] [address] [address] [address] Krystle Clement CO2 [Moles/Vol] 29.7 mmol/L Normal 21.0-32.0 [facility] Comment on above: Performed By: #### B TRAIN OPERATIONS SUPERVISOR, BMP #### [facility] [address] [address] [address] Krystle Clement Creatinine [Mass/Vol] 1.11 mg/dL Critically high 0.55-1.02 [facility] Comment on above: Performed By: #### B TRAIN OPERATIONS SUPERVISOR, BMP #### [facility] [address] [address] [address] Krystle Clement EGFR-AF BAHRAINI 58 mL/min/1.73m2 Critically low >=60 [facility] Comment on above: Performed By: #### B TRAIN OPERATIONS SUPERVISOR, BMP #### [facility] [address] [place] [address] Dr. Krystle Clement EGFR-NON AF BAHRAINI 48 mL/min/1.73m2 Critically low >=60 [facility] Comment on above: Performed By: #### B TRAIN OPERATIONS SUPERVISOR, BMP #### [facility] [address] [address] [address] Krystle Clement Glucose [Mass/Vol] 77 mg/dL Normal 74-106 [facility] Comment on above: Performed By: #### B TRAIN OPERATIONS SUPERVISOR, BMP #### [facility] [address] [address] [address] Krystle Clement Potassium [Moles/Vol] 4.3 mmol/L Normal 3.5-5.1 [facility] Comment on above: Performed By: #### B TRAIN OPERATIONS SUPERVISOR, BMP #### [facility] [address] [address] [address] Krystle Clement Sodium [Moles/Vol] 147 mmol/L Critically high 136-145 [facility] Comment on above: Performed By: #### B TRAIN OPERATIONS SUPERVISOR, BMP #### [facility] [address] [address] [address] Krystle Clement Urea nitrogen [Mass/Vol] 16.0 mg/dL Normal 7.0-18.0 [facility] Comment on above: Performed By: #### B TRAIN OPERATIONS SUPERVISOR, BMP #### [facility] [address] [place], [place] [address] Dr. Krystle Clement Urea nitrogen/Creatinine [Mass ratio] 14.4 mg/mg Normal [facility] Comment on above: Performed By: #### B TRAIN OPERATIONS SUPERVISOR, BMP #### [facility] [address], [place] [address] CHEST WO CONon [...] a malignant lesion. Electronically authenticated by: BARBARA MIRANDA Date: 2022-11-03 15:55 Normal [facility] MG MAMM SCREEN 3D ITALIA CADon 11-03-2022 MG MAMM SCREEN 3D ITALIA CAD Patient: PILO GREGORY Exam Date: 11/03/2022 : 1945 Gender:F Ordering : DR ALEXANDER TOMLIN M.D. Admission #: [id number] Family : Order #: [id number] CLICK HERE TO VIEW EXAM RADIOLOGY REPORT [...] breast cancer at age 59. LOCATION: [facility] BREAST COMPOSITION: Scattered areas fibroglandular [...] LUMP SHOULD BE BIOPSIED. Dictated by: Barbara Miranda MD on 11/03/2022 at 15:49 Approved by: Barbara Miranda MD on 11/03/2022 at 15:57 Normal [facility] CT CHEST WO CONon 03-10-2022 [...] pericardial effusion. 3. Cholelithiasis. Electronically authenticated by: ROBER CHÁVEZ Date: 2022-03-10 10:46 Normal [facility] Vital Signs Date Time Vital Sign Value Performing Clinician Facility 12-23-2024 12:40-0500 Body height 161.3 cm Kathleen Castro MD Work Phone: [facility] 12-23-2024 12:40-0500 Body mass index (BMI) [Ratio] 28.39 kg/m2 Kathleen Castro MD Work Phone: [facility] 12-23-2024 12:40-0500 Body weight 73.85 kg Kathleen Castro MD Work Phone: [facility] 12-23-2024 12:40-0500 Diastolic blood pressure 60 mm[Hg] Kathleen Castro MD Work Phone: [facility] 12-23-2024 12:40-0500 Heart rate 62 /min Kathleen Castro MD Work Phone: [facility] 12-23-2024 12:40-0500 Systolic blood pressure 130 mm[Hg] Kathleen Castro MD Work Phone: [facility] 10-15-2024 09:21-0500 Body height 161.3 cm Cathy Benitez APRN-ARMED SECURITY PROFESSIONAL Work Phone: [facility] 10-15-2024 09:21-0500 Body mass index (BMI) [Ratio] 28.6 kg/m2 Cathy Benitez BAGMAN/WOMAN-ARMED SECURITY PROFESSIONAL Work Phone: [facility] 10-15-2024 09:21-0500 Body temperature 97.7 [degF] Cathy Benitez BAGMAN/WOMAN-ARMED SECURITY PROFESSIONAL Work Phone: [facility] 10-15-2024 09:21-0500 Body weight 74.39 kg Cathy Benitez BAGMAN/WOMAN-ARMED SECURITY PROFESSIONAL Work Phone: [facility] 10-15-2024 09:21-0500 Diastolic blood pressure 82 mm[Hg] Cathy Beintez BAGMAN/WOMAN-ARMED SECURITY PROFESSIONAL Work Phone: [facility] 10-15-2024 09:21-0500 Heart rate 67 /min Cathy Benitez BAGMAN/WOMAN-ARMED SECURITY PROFESSIONAL Work Phone: [facility] 10-15-2024 09:21-0500 Respiratory rate 16 /min Cathy Edouardlly BAGMAN/WOMAN-ARMED SECURITY PROFESSIONAL Work Phone: [facility] 10-15-2024 09:21-0500 SaO2% (BldA) [Mass fraction] 95 % Cathy Benitez BAGMAN/WOMAN-ARMED SECURITY PROFESSIONAL Work Phone: [facility] 10-15-2024 09:21-0500 Systolic blood pressure 133 mm[Hg] Cathy Benitez BAGMAN/WOMAN-ARMED SECURITY PROFESSIONAL Work Phone: [facility] 09-09-2024 14:27-0500 Body height 161.3 cm Kathleen Castro MD Work Phone: [facility] 09-09-2024 14:27-0500 Body mass index (BMI) [Ratio] 28.77 kg/m2 Kathleen Castro MD Work Phone: [facility] 09-09-2024 14:27-0500 Body weight 74.84 kg Kathleen Castro MD Work Phone: [facility] 09-09-2024 14:27-0500 Diastolic blood pressure 88 mm[Hg] Kathleen Castro MD Work Phone: [facility] 09-09-2024 14:27-0500 Heart rate 74 /min Kathleen Castro MD Work Phone: [facility] 09-09-2024 14:27-0500 Systolic blood pressure 144 mm[Hg] Kathleen Castro MD Work Phone: [facility] 08-02-2024 10:50-0400 Body height 160.66 cm [facility] 08-02-2024 10:50-0400 Body mass index (BMI) [Ratio] 28.9 kg/m2 [facility] 08-02-2024 10:50-0400 Body weight 74.61 kg [facility] 08-02-2024 10:50-0400 Diastolic blood pressure 80 mm[Hg] [facility] 08-02-2024 10:50-0400 Heart rate 70 /min [facility] 08-02-2024 10:50-0400 Respiratory rate 16 /min [facility] 08-02-2024 10:50-0400 SaO2% (BldA) [Mass fraction] 96 % [facility] 08-02-2024 10:50-0400 Systolic blood pressure 144 mm[Hg] [facility] 12-29-2023 11:03-0500 Body height 162.56 cm MD Alexander Tomlin Work Phone: [facility] 12-29-2023 11:03-0500 Body mass index (BMI) [Ratio] 28 kg/m2 MD Alexander Tomlin Work Phone: [facility] 12-29-2023 11:03-0500 Body weight 74.16 kg MD Alexander Tomlin Work Phone: [facility] 12-29-2023 11:03-0500 Diastolic blood pressure 90 mm[Hg] MD Alexander Tomlin Work Phone: [facility] 12-29-2023 11:03-0500 Heart rate 94 /min MD Alexander Tomlin Work Phone: [facility] 12-29-2023 11:03-0500 Systolic blood pressure 139 mm[Hg] MD Alexander Tomlin Work Phone: [facility] 04-07-2023 13:30-0400 Body height 162.56 cm Alexander Tomlin Other [facility] Other 04-07-2023 13:30-0400 Body mass index (BMI) [Ratio] 29.69 kg/m2 Alexander Tomlin Other [facility] Other 04-07-2023 13:30-0400 Body weight 78.47 kg Alexander Tomlin Other [facility] Other 04-07-2023 13:30-0400 Diastolic blood pressure 76 mm[Hg] Alexander Tomlin Other [facility] Other 04-07-2023 13:30-0400 Systolic blood pressure 161 mm[Hg] Alexander Tomlin Other [facility] Other 03-20-2023 16:02-0400 Diastolic blood pressure 82 mm[Hg] Alexander Tomlin Work Phone: [facility] [employer] 250 DO Work Phone: 03-20-2023 16:02-0400 Diastolic blood pressure 80 mm[Hg] Alexander Tomlin Work Phone: [facility] [employer] 250 DO Work Phone: 03-20-2023 16:02-0400 Systolic blood pressure 138 mm[Hg] Alexander Tomlin Work Phone: [facility] [employer] 250 DO Work Phone: 03-20-2023 15:32-0400 Body height 160.02 cm Alexander Tomlin Work Phone: [facility] [employer] 250 DO Work Phone: 03-20-2023 15:32-0400 Body mass index (BMI) [Ratio] 30.47 kg/m2 Alexander Tomlin Work Phone: [facility] 250 DO Work Phone: 03-20-2023 15:32-0400 Body surface area Derived from formula 1.81 m2 Alexander Tomlin Work Phone: [facility] 250 DO Work Phone: 03-20-2023 15:32-0400 Body weight 78.02 kg Alexander Tomlin Work Phone: [facility] 250 DO Work Phone: 03-20-2023 15:32-0400 Diastolic blood pressure 86 mm[Hg] Alexander Tomlin Work Phone: [facility] 250 DO Work Phone: 03-20-2023 15:32-0400 Heart rate 74 /min Alexander Tomlin Work Phone: [facility] 250 DO Work Phone: 03-20-2023 15:32-0400 Systolic blood pressure 144 mm[Hg] Alexander Tomlin Work Phone: [facility] 250 DO Work Phone: 02-27-2023 14:47-0400 143 1 Alexander Tomlin Work Phone: [facility] 250 DO Work Phone: Comment on above: [employer] 02-13-2023 09:36-0400 Diastolic blood pressure 70 mm[Hg] Alexander Tomlin Work Phone: [facility] 250 DO Work Phone: 02-13-2023 09:36-0400 Systolic blood pressure 138 mm[Hg] Alexander Tomlin Work Phone: [facility] 250 DO Work Phone: 02-13-2023 09:35-0400 Body height 160.02 cm Alexander Tomlin Work Phone: [facility] 250 DO Work Phone: 02-13-2023 09:35-0400 Body mass index (BMI) [Ratio] 30.65 kg/m2 Alexander Tomlin Work Phone: [facility] 250 DO Work Phone: 02-13-2023 09:35-0400 Body surface area Derived from formula 1.82 m2 Alexander Tomlin Work Phone: [facility] 250 DO Work Phone: 02-13-2023 09:35-0400 Body weight 78.47 kg Alexander Tomlin Work Phone: [facility] 250 DO Work Phone: 02-13-2023 09:35-0400 Diastolic blood pressure 72 mm[Hg] Alexander Tomlin Work Phone: [facility] 250 DO Work Phone: 02-13-2023 09:35-0400 Heart rate 63 /min Alexander Tomlin Work Phone: [facility] 250 DO Work Phone: 02-13-2023 09:35-0400 Systolic blood pressure 130 mm[Hg] Alexander Tomlin Work Phone: [facility] 250 DO Work Phone: 01-02-2023 09:30-0500 Body height 162.56 cm Alexander Tomlin Other [facility] Other 01-02-2023 09:30-0500 Body mass index (BMI) [Ratio] 29.52 kg/m2 Alexander Tomlin Other [facility] Other 01-02-2023 09:30-0500 Body weight 78.02 kg Alexander Tomlin Other [facility] Other 01-02-2023 09:30-0500 Diastolic blood pressure 70 mm[Hg] Alexander Tomlin Other [facility] Other 01-02-2023 09:30-0500 SaO2% (BldA) [Mass fraction] 98 % Alexander Nabor Other [facility] Other 01-02-2023 09:30-0500 Systolic blood pressure 142 mm[Hg] Alexander Nabor Other [facility] Other Encounters Encounter Date Encounter Type Care Provider Facility Start: 01-30-2025 End: 01-30-2025 Marshall Landaverde MD Work Phone: [facility] Start: 01-30-2025 End: 01-30-2025 [employer] una Landaverde MD Work Phone: [facility] Start: 01-30-2025 End: 01-30-2025 Office outpatient visit 15 minutes Choco Landaverde MD Work Phone: [facility] Comment on above: Seborrheic keratosis (Primary Dx); Xerosis cutis; Lentigines; Actinic keratosis; Neoplasm of unspecified behavior of bone, soft tissue, and skin; Capillary angioma; Sebaceous hyperplasia of face; Seborrheic keratosis, inflamed; Personal history of other malignant neoplasm of skin Start: 01-30-2025 End: 01-30-2025 ambulatory CHOCO LANDAVERDE Not Available Start: 12-23-2024 End: 12-23-2024 Office outpatient visit 15 minutes Kathleen Castro MD Work Phone: [facility] Comment on above: CRLD (chronic restri ctive lung disease) (Primary Dx); SOTO (dyspnea on exertion); Stage 3a chronic kidney disease (Multi); Never smoked cigarettes; Mixed hyperlipidemia; Body mass index (BMI) 28.0-28.9, adult Start: 12-23-2024 End: 12-23-2024 ambulatory [facility] Start: 12-10-2024 End: 12-10-2024 Office outpatient visit 15 minutes James Mo DO Work Phone: [facility] Comment on above: Sarcoidosis (Primary Dx) Start: 12-10-2024 End: 12-10-2024 ambulatory JAMES Gramajo STRATHCONAELAYNE [facility] Ambulatory Start: 11-26-2024 End: 11-26-2024 ambulatory CATHY Hector ELI [facility] Start: 11-26-2024 End: 11-26-2024 Subsequent hospital visit by physician Gisell Devries [facility] R[facility] Comment on above: Sarcoid Start: 10-15-2024 End: 10-15-2024 Office consultation new/estab patient 60 min [facility] [employer] PROFESSIONAL Work Phone: [facility] Comment on above: Sarcoid (Primary Dx) ; Shortness of breath Start: 10-15-2024 End: 10-15-2024 ambulatory ALEXANDER TOMLIN [facility] Start: 09-09-2024 End: 09-09-2024 Office outpatient visit 25 minutes Kathleen Castro MD Work Phone: [facility] Comment on above: SOTO (dyspnea on exer tion); Mixed hyperlipidemia; Never smoked cigarettes; Body mass index (BMI) 28.0-28.9, adult; CRLD (chronic restrictive lung disease); Personal history of COVID-19; Stage 3a chronic kidney disease (Multi) Start: 09-09-2024 End: 09-09-2024 ambulatory [facility] Start: 09-05-2024 End: 09-05-2024 Marshall Landaverde MD Work Phone: [facility] Start: 09-05-2024 End: 09-05-2024 Marshall Landaverde MD Work Phone: [facility] Start: 09-05-2024 End: 09-05-2024 Office outpatient visit 25 minutes Choco Landaverde MD Work Phone: [facility] Comment on above: Other atopic dermati tis (Primary Dx); Bug bite without infection, initial encounter; Actinic keratosis Start: 09-05-2024 End: 09-05-2024 ambulatory CHOCO LANDAVERDE Not Available Start: 08-02-2024 End: 08-02-2024 ambulatory [facility] Work Phone: Start: 08-02-2024 End: 08-02-2024 Patient encounter procedure [facility] Physician [facility] Work Phone: Start: 07-04-2024 Non-patient / Non-visit [facility] Work Phone: Start: 01-22-2024 End: 01-22-2024 ambulatory [facility] Facility:[facility] Start: 01-22-2024 End: 01-22-2024 ambulatory MD Alexander Tomlin Work Phone: [facility] Work Phone: Start: 01-22-2024 End: 01-22-2024 Departed Referred MD Alexander Tomlin Work Phone: [facility] Start: 01-01-2024 Non-patient / Non-visit MD Bettie Tomlin Work Phone: [facility] Work Phone: Start: 12-29-2023 End: 12-29-2023 Patient encounter procedure MD Alexander Tomlin Work Phone: [facility] Physician [facility] Work Phone: Start: 04-07-2023 End: 04-07-2023 ambulatory Alexander Tomlin Other [facility] Other Start: 04-07-2023 Patient encounter procedure Alexander Tomlin [facility] Start: 03-28-2023 Chart Update Alexander Tomlin Work Phone: [facility] 250 DO Work Phone: Start: 03-24-2023 Chart Update Alexander Tomlin Work Phone: [facility] 250 DO Work Phone: Start: 03-24-2023 ambulatory Kathleen Marquez Facility: [id number] Start: 03-02-2023 Chart Update Alexander Tomlin Work Phone: [facility] 250 DO Work Phone: Start: 03-01-2023 ambulatory Kathleenangie Sanchezmichell0emmie Facility: [id number] Start: 02-27-2023 End: 02-28-2023 ambulatory [facility] Facility: Start: 02-14-2023 End: 02-14-2023 ambulatory Alexander Tomlin Other [facility] Other Start: 02-14-2023 Telephone encounter Alexander Tomlin [facility] Start: 02-13-2023 Office consultation new/estab patient 60 min Alexander Tomlin Work Phone: [facility] 250 DO Work Phone: Start: 02-13-2023 ambulatory MD KATHLEEN CASTRO Facilit y: Start: 01-18-[address] Alexander Tomlin Facility:[facility] Start: 01-17-2023 End: 01-17-2023 ambulatory Alexander Tomlin Other [facility] Other Start: 01-17-2023 Telephone encounter Alexander Tomlin [facility] Start: 01-16-2023 End: 01-17-[address] ALEXANDER TOMLIN Facility: Start: 01-05-2023 End: 01-05-2023 ambulatory Alexander Tomlin Other [facility] Other Start: 01-05-2023 Telephone encounter Alexander Tomlin [facility] Start: 01-04-2023 End: 01-05-[address] ALEXANDER TOMLIN Facility:[facility] Start: 01-02-2023 End: 01-02-2023 ambulatory Alexander Tomlin Other [facility] Other Start: 01-02-2023 Office outpatient vi sit 15 minutes Alexander Tomlin [facility] Start: 11-03-2022 End: 11-04-2022 ambulatory DAYANNA LOBO . Facility:[facility] Start: 03-10-2022 End: 03-11-2022 ambulatory DAYANNA LOBO . Facility:[facility] Start: 10-17-2018 End: 10-17-2018 Patient encounter procedure EMILY YIN [facility] Procedures Date Procedure Procedure Detail Performing Clinician Start: 01-30-2025 SKIN / NAIL BIOPSY Jose Landaverde MD Work Phone: Start: 01-30-2025 End: 01-30-2025 CRYOTHERAPY SKIN LESION Choco Landaverde MD Work Phone: Start: 11-26-2024 Pressurized/nonpress urized inhalation treatment Cathy Benitez [employer] PROF[employer]AL Work Phone: Start: 09-09-2024 Ecg routine ecg w/le ast 12 lds w/i&r Kathleen Castro MD Work Phone: Start: 09-05-2024 CRYOTHERAPY SKIN LESION Choco Landaverde MD Work Phone: Appendectomy Alexander Tomlin Work Phone: section Alexander ochoa Work Phone: Colonoscopy Alexander Tomlin Work Phone: Tonsillectomy and adenoidectomy Alexander Tomlin Work Phone: Plan of Treatment Date Care Activity Detail Author Start: 01-29-2026 End: 01-29-2026 Patient encounter procedure 01/29/2026 9:00 AM EDT Office Visit [facility] [address] [place] [address] Choco Landaverde MD [address] [place] [address] [facility] Start: 06-30-2025 Influenza vaccination Influenza Vaccine (Season Ended) [facility] Start: 01-30-2025 End: 01-30-2025 Patient encounter procedure 01/30/2025 11:30 AM EDT Office Visit [facility] [address] [place] [address] Choco Landaverde MD [address] [place] [address] Arrived [facility] Comment on above: Arrived Start: 12-24-2024 End: 12-10-[address] chest high resolution Imaging Routine Sarcoidosis Expected: 12/24/2024, Expires: 12/10/2025 [facility] Service Area Work Phone: Comment on above: Expected: 12/24/2024, Expires: Start: 12-23-2024 End: 12-23-2024 Patient encounter procedure 12/23/2024 12:30 PM EST Office Visit [facility] [address] [place] [address] Kathleen Castro MD [address] [place] [address] [facility] Start: 12-10-2024 End: 12-10-2024 Telemedicine consultation with patient 12/10/2024 8:40 AM EST Telemedicine [facility] [address] [place] [phone] [place] [address] [place] [address] [facility] Start: 11-28-2024 End: 11-28-2024 Patient encounter procedure 11/28/2024 1:30 PM EST Office Visit [facility] [address] [place] [phone] Choco Landaverde MD [address] [place] [address] [facility] Start: 11-25-2024 End: 11-25-2024 Patient encounter procedure 11/25/2024 11:20 AM EST Office Visit [facility] [address] [place] [id number] [place] [address] [place] [address] [facility] Start: 10-15-2024 End: 10-15-2025 Calcitriol [Mass/volume] in Serum or Plasma [facility] Work Phone: Comment on above: Expected: 10/15/2024 (Approximate), Expi res: 10/15/2025 Start: 10-15-2024 End: 10-15-2025 Complete Pulmonary Function Test Pre/Post Bronchodilator (Spirometry Pre/Post/DLCO/Lung Volumes) Complete Pulmonary Function Test Pre/Post Bronchodilator (Spirometry Pre/Post/DLCO/Lung Volumes) PFT Routine Sarcoid Expected: 10/15/2024 (Approximate), Expires: 10/15/2025 [facility] Service Area Work Phone: Comment on above: Expected: 10/15/2024 (Approximate), Expi res: 10/15/2025 Start: 09-09-2024 End: 09-09-2025 Erythrocyte sedimentation rate Sedimentation Rate Lab Routine SOTO (dyspnea on exertion) CRLD (chronic restrictive lung disease) Expected: 09/09/2024 (Approximate), Expires: 09/09/2025 [facility] Work Phone: Comment on above: Expected: 09/09/2024 (Approximate), Expi res: 09/09/2025 Start: 09-09-2024 End: 09-09-2025 Natriuretic peptide B [Mass/volume] in Blood B-Type Natriuretic Peptide Lab Routine SOTO (dyspnea on exertion) Expected: 09/09/2024 (Approximate), Expires: 09/09/2025 [facility] Service Area Work Phone: Comment on above: Expected: 09/09/2024 (Approximate), Expi res: 09/09/2025 Start: 09-05-2024 End: 09-05-2024 Patient encounter procedure 09/05/2024 9:20 AM EST Office Visit [facility] [address] [place] [phone] Choco Landaverde MD [address] [place] [address] Arrived [facility] Comment on above: Arrived Start: 06-30-2024 COVID-19 Vaccine ( season) COVID-19 Vaccine ( season) [facility] Start: 06-30-2024 COVID-19 Vaccine ( season) COVID-19 Vaccine ( season) [facility] Start: 06-30-2024 Influenza vaccination Influenza Vaccine (#1) [facility] Start: 03-20-2023 FUV, Provider: Kathleen Castro, Status: Pen, Time: 3:30 PM FUV, Provider: Kathleen Castro, Status: Pen, Time: 3:30 PM [facility] DO Work Phone: Start: 03-01-2023 STRESS NUC, Provider: NAINA HHVI NUCLEAR ,[id number], Status: Pen, Time: 8:00 AM STRESS NUC, Provider: NAINA HHVI NUCLEAR ,[id number], Status: Pen, Time: 8:00 AM [facility] 250 DO Work Phone: Start: 2021 RSV High Risk: (Elderly (60+) or Population) (1 - 1-dose 75+ series) RSV High Risk: (Elderly (60+) or Population) (1 - 1-dose 75+ series) [facility] Start: 1996 Zoster Vaccines (1 of 2) Zoster Vaccines (1 of 2) [facility] Start: 1968 DTaP/Tdap/Td Vaccines (1 - Tdap) DTaP/Tdap/Td Vaccines (1 - Tdap) [facility] Start: 1965 Urine screening for protein CKD: Urine Protein Screening [facility] Start: 1964 Hepatitis C screening Hepatitis C Screening [facility] Start: 1946 Lipid panel Lipid Panel [facility] Start: 1946 Medicare Annual Wellness Visit Medicare Annual Wellness Visit (AWV) [facility] Start: 1945 Screening for osteoporosis Bone Density Scan [facility] Dermatopathology exam Dermatopat hology exam Pathology and Cytology Timed Neoplasm of unspecified behavior of bone, soft tissue, and skin Release Upon Ordering for 1 Occurrences starting 01/30/2025 [facility] Work Phone: Comment on above: Release Upon Ordering for 1 Occurrences starting 01/30/2025 Urine culture [facility] Immunizations Immunization Date Immunization Notes Care Provider Fa cility 10-25-2021 Pfizer-BioNTech COVI D-19 Vacc 30 MCG/0.3ML Intramuscular Suspension Alexander Tomlin Work Phone: -[facility] 250 DO Work Phone: 03-25-2021 Pfizer-BioNTech COVI D-19 Vacc 30 MCG/0.3ML Intramuscular Suspension Alexander Tomlin Work Phone: [facility] 03-01-2021 Pfizer-BioNTech COVI D-19 Vacc 30 MCG/0.3ML Intramuscular Suspension Alexander Tomlin Work Phone: [facility] 10-25-2019 pneumococcal polysaccharide vaccine, 23 valent MD Alexander Tomlin Work Phone: [facility] 10-08-2016 influenza virus vacc ine, unspecified formulation MD Alexander Tomlin Work Phone: [facility] 10-06-2016 pneumococcal conjuga te vaccine, 13 angeli Tomlin Work Phone: [facility] 04-09-2015 pneumococcal conjuga te vaccine, 13 angeli Tomlin Work Phone: [facility] 250 DO Work Phone: 08-31-2008 pneumococcal polysaccharide vaccine, 23 valmp Tomlin Work Phone: [facility] 250 DO Work Phone: Payers Date Payer Category Payer Medicare supplementa l policy (as second payer) GENERIC MEDICARE SUPPLEMENT [id number] 2024 Self-pay [id number] 2023 Private Health Insurance [facility] [employer] [id number] 2011 Medicare [id number] 1959 Medicare [id number] 1959 Unknown [id number] 2.16.840.1.098232.19 1946 Unknown [id number] 2.16.840.1.612045.3.579. 2.356 1946 Unknown [id number] 2.16.840.1.832825.3.579. 2.593 1946 Unknown [id number] 2.16.840.1.879663.3.579. 2.593 1946 Unknown [id number] 2.16.840.1.625037.3.579. 2.593 1946 Unknown [id number] 2.16.840.1.330738.3.579. 2.593 1946 Unknown [id number] 2.16.840.1.483549.3.579. 2.593 1946 Unknown [id number] 2.16.840.1.118989.3.579. 2.593 1946 Unknown [id number] 2.16.840.1.085434.3.579. 2.593 1946 Unknown [id number] 2.16.840.1.013742.3.579. 2.1068 1946 Unknown [id number] 2.16.840.1.464840.3.579. 2.1068 1946 Unknown [id number] 2.16.840.1.117335.3.579. 2.1245 1946 Unknown [id number] 2.16.840.1.287299.3.579. 2.1244 1946 Unknown [id number] 2.16.840.1.586988.3.579. 2.1244 1946 Unknown [id number] 2.16.840.1.258623.3.579. 2.1244 1946 Unknown [id number] 2.16.840.1.827625.3.579. 2.1244 1946 Unknown [id number] 2.16.840.1.177717.3.579. 2.1246 1946 Unknown [id number] 2.16.840.1.107067.3.579. 2.1259 1946 Unknown [id number] 2.16.840.1.369409.3.579. 2.1259 Unknown Unknown [id number] Unknown [id number] 2.16.840.1.220188.3.579. 2.531 Social History Date Type Detail Facility Unknown if ever smoked [employer] Other Start: 11-28-2023 End: 01-30-2025 Sex Assigned At [facility] Start: 11-28-2023 End: 01-30-2025 Alcohol ingestion Alcohol ingestion [facility] Comment on above: couple weekly whiske y; coffee daily; Start: 1945 Sex Assigned At Female F [facility] Start: 05-04-2023 End: 09-09-2024 Tobacco smoking status NHIS Never smoked tobacco [facility] Start: 05-04-2023 End: 09-09-2024 Tobacco use and exposure Smokeless tobacco non-user [facility] Start: 1945 Sex assigned at Not on file N [facility] Start: 09-09-2024 End: 12-23-2024 Alcoholic beverage intake Current drinker of alcohol (finding) [facility] Work Phone: Start: 08-30-2024 End: 12-23-2024 Exposure to SARS-CoV-2 (event) Not sure [facility] Start: 11-30-2024 End: 12-10-2024 Exposure to SARS-CoV-2 (event) Unable to assess [facility] Work Phone: Start: 01-30-2025 Alcoholic beverage intake Defer [facility] Clinical Notes 01-02-2023 to 01-30-2025 Choco Landaverde MD - 01/30/2025 11:30 AM John Castro MD - 12/23/2024 12:30 PM ESTPatient Eladio Mo DO - 12/10/2024 8:40 AM Tyrel Castro MD - 09/09/2024 2:15 PM EST Note Date & Type Note Facility 01-30-2025 History of Present illness Narrative Images from the original note were not included. Skin Check Location: Patient requests a full body skin examination Dermatologic history: history of Actinic Keratosis, history of Basal Cell Carcinoma, history of Squamous Cell Carcinoma Last visit: 1 year ago Established patient Follow up Diagnosis: Xerosis Location: Generalized Last visit: 10/2022 for this condition Symptoms: Itchy at times Status: Scant flare today Current treatment: Amlactin 12% lotion every day/prn All pertinent medical history, medications, and allergies were reviewed. General Exam: alert, oriented to person, place, and time, normal affect, well appearing Scalp, Examined Right leg Examined Head, Face Examined Left leg Examined Neck Examined Right foot Examined Chest Examined Left foot Examined Back Examined Buttocks Examined Abdomen Examined Digits,nails: Examined Right arm Examined Wearing fingernail and toenail moroccan. Denies dark streaking Left arm Examined Hands Examined 1. Xerosis cutis Dry, scaly skin Recommended soap and moisturizer handout given. Continue use of Amlactin 12% cream every day/prn. Related Medications ammonium lactate (Amlactin) 12 % cream Apply topically Daily as needed for dry skin 2. Seborrheic keratosis Stuck on verrucous, rico-brown papules and plaques. Patient was counseled regarding these benign growths. Removal is normally not necessary, but they may be removed if they are symptomatic or for cosmetic reasons. 3. Lentigines Scattered rico macules in sun-exposed areas. The patient was informed that lentigines are benign pigmented lesions that occur on sun-exposed and sun-damaged skin. No treatment is necessary. Recommended regular use of broad spectrum sunscreen SPF 30 or higher 4. Actinic keratosis (6) Left Ala Nasi, Left Buccal Cheek, Left Forehead, Left Frontal Scalp, Left Nasal Sidewall, Right Superior Slater Erythematous scaly papules Patient was counseled regarding [...] limited to risks of scarring, darker or scratch polisher pigmentary changes, recurrence, incomplete removal and infection. Method: Liquid nitrogen was used to treat the lesion(s) with two 5-10 second freeze-thaw cycles. Eyes were shielded using cotton pad during procedure Number of lesions treated: 6 Post-procedure instructions: Instructions were given orally and in writing. The office will be contacted if the lesion fails to resolve despite treatment, or if a side effect develops such as abnormal crusting, scabbing, redness or tenderness Cryotherapy, skin lesion - Left Ala Nasi, Left Buccal Cheek, Left Forehead, Left Frontal Scalp, Left Nasal Sidewall, Right Superior Slater 5. Neoplasm of unspecified behavior of bone, soft tissue, and skin Glabella Erythematous macule Lesion biopsy Type of biopsy: tangential Informed consent: discussed and consent obtained Informed consent comment: The risks and benefits of the biopsy were discussed. Risks include but are not limited to bleeding, infection, scarring, pain, and nerve damage. An opportunity to ask questions prior to the procedure was permitted and all questions were answered. Patient was prepped and draped in usual sterile fashion: area cleansed with alcohol. Anesthesia: the lesion was anesthetized in a standard fashion Anesthetic: 1% lidocaine w/ epinephrine 1-100,000 buffered w/ 8.4% NaHCO3 Instrument used: DermaBlade Hemostasis achieved with: electrodesiccation Outcome: patient tolerated procedure well Outcome comment: The specimen was placed in a prelabeled formalin container to be sent for pathology Post-procedure details: sterile dressing applied and wound care instructions given Post-procedure details comment: Emphasized need to contact clinic for any signs of infection, uncontrollable bleeding, or complications. Dressing type: bandage Additional details: Photo taken Amount of lidocaine used: 1.0 cc Specimen A - Dermatopathology exam Differential Diagnosis: ISK vs SCC vs AK Check Margins: No Size of lesion: 0.8 x 0.7 cm 6. Capillary angioma Trunk Scattered mariscal-red papule(s). The patient was informed that angiomas are benign growths on the the skin. No treatment is necessary. 7. Sebaceous hyperplasia of face Head - Anterior (Face) Small yellow papules with a central dell. Reassure, benign. Discussed these can be removed for a cosmetic fee with the hyfrecator if desired. 8. Seborrheic keratosis, inflamed Left Lower Leg - Anterior Coqui and brown stuck on verrucous scaly papule with surrounding erythema The patient was informed that symptomatic seborrheic keratoses are benign growths that become inflamed, itchy, tender, traumatized, caught on clothing, or bleed. Symptomatic lesions can be treated with cryotherapy or curretage. Thicker lesions treated with cryotherapy may require more than one treatment. The patient was instructed to notify the office if abnormal redness or tenderness develops at the treatment site. Cryotherapy today, see procedure note. Diagnosis: Inflamed seborrheic keratosis Indication: Inflamed Consent: Verbal consent was obtained and risks were discussed, including, but not limited to risks of scarring, darker or scratch polisher pigmentary changes, recurrence, incomplete removal and infection. Method: Liquid nitrogen was used to treat the lesion(s) with two 5-10 second freeze-thaw cycles Number of lesions treated: 1 Post-procedure instructions: Instructions were given orally and in writing. The office will be contacted if the lesion fails to resolve despite treatment, or if a side effect develops such as abnormal crusting, scabbing, redness or tenderness Cryotherapy, skin lesion - Left Lower Leg - Anterior 9. Personal history of other malignant neoplasm of skin Next Visit: pending biopsy results, 1 year skin check documented in this encounter [facility] 12-23-2024 History of Present illness Narrative This is a follow-up from August 2024. Subjective : She just returned from [place]. While she was there she was treated for bronchitis, she is finishing up her steroids and antibiotics. She feels better on the steroids. She had 1 visit with pre parole counseling aide, she is to have a high-resolution CT of the chest, and follow-up after that. She denies chest pressure tightness heaviness or palpitations denies orthopnea or PND. Her NT proBNP level September 2024 was 475 which is normal her sed rate was 7 12 point ROS is negative or non contributory except as noted. History so Far : 1. exertional shortness of breath and a decrease in functional capacity-I would say she is functional class II right now, but her baseline activity level was excellent for her age, still it is above average. 2. Chronic kidney disease stage IIIa GFR 40 04 January 2023 3. Personal history of COVID with pneumonia 2020 4. 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 Echocardiogram December 2022-LVEF 65% mild aortic regurgitation unable to assess right-sided pressures because of lack of measurable tricuspid regurgitation, no pericardial effusion. LV end-systolic dimension 3 cm Left atrial diameter was reported to be 3.6 cm. 6. EKG abnormalities, new compared to a previous EKG from December 2022. 7. History of lower extremity edema 8. Abnormalities on CT of the chest, [...] gender and race 12. CT chest June 2024-innumerable lung nodules and small patchy opacities within [...] to loss of functional alveolar capillary surface 14. PFTs October 2024-DLCO 13.5 which is 66% predicted. When corrected for alveolar ventilation DLCO is 130% predicted overall findings indicative of combined mild to moderate chest restriction/airflow obstruction without significant response to bronchodilator challenge DLCO values are consistent with incomplete lung expansion or localized loss of lung volume Objective Wt Readings from Last 3 Encounters: 12/23/24 73.8 kg (162 lb 12.8 oz) 10/15/24 74.4 kg (164 lb) 09/09/24 74.8 kg (165 lb) Vitals: 12/23/24 1240 BP: 130/60 BP Location: Right arm Patient Position: Sitting Pulse: 62 Weight: 73.8 kg (162 lb 12.8 oz) Height: 1.613 m (5' 3.5 ) Physical Exam: Patient is awake alert oriented x3, no acute distress Lungs : Breath sounds are very distant. There are expiratory wheezes most prominent left mid and lower lung gutierrez. Heart sounds are regular without murmur rub or gallop Extremities show no edema Ambulates without assistance. Meds: Current Outpatient Medications Medication Instructions Eylea 2 mg, Once fluticasone (Flonase) 50 mcg/actuation nasal spray 1 spray, Daily multivitamin tablet 1 tablet, Daily No Known Allergies LABS: Lipids: No results found for: CHOL No results found for: HDL No results found for: LDLCALC No results found for: TRIG No components found for: CHOLHDL A1C No results found for: HGBA1C CBC September 2024-sodium 142 potassium 4.3 BUN 17 creatinine 1.09 GFR 52 total bilirubin minimally elevated 1.5 hemoglobin 14 hematocrit 44 platelets 1 93,000 Patient Active Problem List Diagnosis Date Noted SOTO (dyspnea on exertion) 09/09/2024 Never smoked cigarettes 09/09/2024 Body mass index (BMI) 28.0-28.9, adult 09/09/2024 CRLD (chronic restrictive lung disease) 09/09/2024 Personal history of COVID-19 09/09/2024 Stage 3a chronic kidney disease (Multi) 09/09/2024 Assessment: 1. CRLD (chronic restrictive lung disease) 2. SOTO (dyspnea on exertion) 3. Mixed hyperlipidemia Follow Up In Cardiology 4. Stage 3a chronic kidney disease (Multi) 5. Never smoked cigarettes 6. Body mass index (BMI) 28.0-28.9, adult This patient continues to have class III shortness of breath. She needs continued pulmonary follow-up, and I have encouraged her to do that. Her shortness of breath has no cardiac component. She needs to follow-up with pulmonary service. I will be happy to see her on an as-needed basis. Thank you Dr. Tomlin for allowing me to participate in Pilo's care, please do not hesitate to call if further questions arise, Sincerely, Kathleen Castro MD [facility] Follow up : PRN Provider Attestation - Scribe documentation Scribe Attestation By signing my name below, I, Lacey Corral LPN , Scribe attest that this documentation has been prepared under the direction and in the presence of Kathleen Castro MD. All medical record entries made by the Scribe were at my direction and personally dictated by me. I have reviewed the chart and agree that the record accurately reflects my personal performance of the history, physical exam, discussion and plan. documented in this encounter [facility] Work Phone: 12-23-2024 Instructions Lacey Ladd LPN - 12/23/2024 12:30 PM EST Please bring all medicines, vitamins, and herbal supplements with you when you come to the office. Prescriptions will not be filled unless you are compliant with your follow up appointments or have a follow up appointment scheduled as per instruction of your physician. Refills should be requested at the time of your visit. Follow up ordered as needed only documented in this encounter [facility] Work Phone: 12-10-2024 History of Present illness Narrative Images from the original note were not included. Patient: Pilo Gregory [id number] : 1945 -- AGE 78 y.o. Provider: Location [facility] Service Date: 10/15/24 [facility] New Visit Note HISTORY OF PRESENT ILLNESS The patient's referring provider is: No ref. provider found HISTORY OF PRESENT ILLNESS Pilo Gregory is a 78 y.o. female with no significant past medical history, who is a never smoker, who presents to a [facility] for an initial evaluation for shortness of breath. The patient reports that she has sarcoidosis and was told that she has nodules on her chest. I am unable to locate any prior radiology imaging. I have ordered a high-resolution CT scan. The patient will complete this when she returns to [place] next week. Right now she is in [facility]. We will shortly see her thereafter and schedule her for any necessary testing. This was a telephone visit. ALLERGIES AND MEDICATIONS ALLERGIES No Known Allergies MEDICATIONS Current Outpatient Medications Medication Sig Dispense Refill fluticasone (Flonase) 50 mcg/actuation nasal spray Administer 1 spray into each nostril once daily. Shake gently. Before first use, prime pump. After use, clean tip and replace cap. multivitamin tablet Take 1 tablet by mouth once daily. aflibercept (Eylea) 2 mg/0.05 mL intra-ocular injection 0.05 mL (2 mg) by intravitreal route 1 time. Every 4 months No current facility-administered medications for this visit. 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 No exposure to birds or exotic animals. FAMILY HISTORY Family History Problem Relation Name Age of Onset Cancer Mother Heart failure Father No family history of pulmonary disease. Mother - breast cancer. No family history of autoimmune disorders. Grandchild- NPGN kidney REVIEW OF SYSTEMS REVIEW OF SYSTEMS PHYSICAL EXAM VITAL SIGNS: There were no vitals filed for this visit. CURRENT WEIGHT: There is no height or weight on file to calculate BMI. PREVIOUS WEIGHTS: Wt Readings from Last 3 Encounters: 10/15/24 74.4 kg (164 lb) 09/09/24 74.8 kg (165 lb) 03/20/23 78 kg (172 lb) Physical Exam RESULTS/DATA Pulmonary Function Test Results No testing done. Chest Radiograph No testing done. Chest CT Scan No testing done. Echocardiogram Labwork Lab Results Component Value Date WBC 7.5 10/15/2024 HGB 14.0 10/15/2024 HCT 44.2 10/15/2024 MCV 93 10/15/2024 PLT 193 10/15/2024 Lab Results Component Value Date GLUCOSE 81 10/15/2024 CALCIUM 9.7 10/15/2024 NA 142 10/15/2024 K 4.3 10/15/2024 CO2 28 10/15/2024 CL 106 10/15/2024 BUN 17 10/15/2024 CREATININE 1.09 (H) 10/15/2024 Lab Results Component Value Date ALT 11 10/15/2024 AST 14 10/15/2024 ALKPHOS 49 10/15/2024 BILITOT 1.5 (H) 10/15/2024 No results found for: PROTIME , INR , PTT No results found for: ICIGE , IGE , ICA04 , ASPFU , IGG , IGA , IGM Peripheral Eosinophil Count/Percentage: Eosinophils Absolute (x10*3/uL) Date Value 10/15/2024 0.29 Eosinophils % (%) Date Value 10/15/2024 3.9 ASSESSMENT/PLAN Ms. Gregory is a 78 y.o. female, with no significant past medical history, who is a never smoker, who presents to a [facility] for an initial evaluation for shortness of breath. Echo 2022: LVEF 65%. Mild aortic valve regurgitation. RA is normal size. RV is normal size and function. 02/2023: Normal combined limited exercise and Lexiscan Myoview cardiac perfusion imaging stress test. Problem List and Orders Problem List Items Addressed This Visit None Visit Diagnoses Sarcoidosis - Primary Relevant Orders CT chest high resolution Assessment and Plan / Recommendations: Problem List Items Addressed This Visit None Visit Diagnoses Sarcoidosis - Primary Relevant Orders CT chest high resolution Shortness of breath Possible Sarcoidosis PFT reviewed Lung nodules; some calcified (on Cardiac Score 2022) - High resolution CT If you have any questions please call the office [phone] Thank you for visiting the Pulmonary clinic today! documented in this encounter [facility] Work Phone: 10-15-2024 History of Present illness Narrative Images from the original note were not included. Patient: Pilo Gregory [id number] : 1945 -- AGE 78 y.o. Provider: Cathy Benitez APRN- [facility] Location [facility] Service Date: 10/15/24 [facility] New Visit Note HISTORY OF PRESENT ILLNESS The patient's referring provider is: No ref. provider found HISTORY OF PRESENT ILLNESS Pilo Gregory is a 78 y.o. female with no significant past medical history, who is a never smoker, who presents to a [facility] for an initial evaluation for shortness of breath. I have independently interviewed and examined the patient in the office and reviewed available records. Current History HPI: On today's visit, the patient reports coming for a second opinion. She c/o having shortness of breath all the time, fatigue and wheezing since having COVID in 2020. Was seeing Financial Processing Clerk at [place] who she states started her on Symbicort with no improvement, Symbicort made her throat hoarse. She has since stopped using a long time ago. She has multiple lung nodules, some are calcified, seen Dr. Dayanna Lobo pre parole counseling aide at [place], 1.5cm largest nodule bronch was non-diagnostic. Recommend to follow with [address] Chest[address] 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 EKG 09/09/24: Normal sinus rhythm. Being treated for contact dermatitis on palms of hands # Sarcoidosis Multi-organ involvement evaluation: 1) General: no fever, chills, asthenia, fatigue or weight loss. 2) Neuro: No sign of neurosarcoidosis. 3) Eyes: no hx of uveitis, retinal vascular change or conjunctival nodules. Yearly ophthalmology appointment. 4) ADP: no peripheral adp noted on exam today 5) skin: no hx of erythema nodosum, lupus pernio, papules, nodules, plaques or scar 6) Liver: no transaminitis. Year LFTs. 7) Heart: yearly ECG, and echo 8) Kidneys: Will check Creat, Ca blood and 24hr urine and 1.25OH vitamin D 9) MSK: no muscle weakness 10) GI/: very uncommon involvement, no clinic signs Denies chest tightness, fevers, chills, GERD, and ER visits for breathing issues. Previous pulmonary history: She has no history of recurrent infections, or lung disease as a child. He had no previous lung hx, never on oxygen or inhaler therapy. Inhalers/nebulized medications: Symbicort Hospitalization History: She has not been hospitalized over the last year for breathing related problem. Sleep history: Denies snoring, apnea, feeling tired during the day or taking naps during the day. ALLERGIES AND MEDICATIONS ALLERGIES No Known Allergies MEDICATIONS Current Outpatient Medications Medication Sig Dispense Refill multivitamin tablet Take 1 tablet by mouth once daily. No current facility-administered medications for this visit. 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 No exposure to birds or exotic animals. FAMILY HISTORY Family History Problem Relation Name Age of Onset Cancer Mother Heart failure Father No family history of pulmonary disease. Mother - breast cancer. No family history of autoimmune disorders. Grandchild- NPGN kidney REVIEW OF SYSTEMS REVIEW OF SYSTEMS Review of Systems Constitutional: No fever, no chills, no night sweats. Eyes: No double vision, no floaters, no dry eyes. ENT: See HPI. Neck: No neck stiffness. Cardiovascular: No sharp chest pain, no heart racing, no leg swelling. Respiratory: as noted in HPI. Gastrointestinal: No nausea, no vomiting, no diarrhea. Musculoskeletal: No joint pain, no back pain. Integumentary: No rashes or sores. Neurological: No dizziness, no headaches. Sleeping well. Psychiatric: No mood changes. Endocrine: No hot flashes, no cold intolerance, weight is stable. Hematologic: No easy bruising or bleeding. PHYSICAL EXAM VITAL SIGNS: Vitals: 10/15/24 0921 BP: 133/82 Pulse: 67 Resp: 16 Temp: 36.5 C (97.7 F) SpO2: 95% CURRENT WEIGHT: Body mass index is 28.6 kg/m . PREVIOUS WEIGHTS: Wt Readings from Last 3 Encounters: 09/09/24 74.8 kg (165 lb) 03/20/23 78 kg (172 lb) 02/13/23 78.5 kg (173 lb) Physical Exam Constitutional: General appearance: Alert and oriented. No acute distress. Well developed, well nourished. Head and face: Symmetric ENT: external inspection of ear and nose normal. No intranasal polyps. No oropharyngeal exudates. Oropharynx: normal Neck: supple, no lymphadenopathy Pulmonary: Chest is normal. No increased work of breathing or signs of respiratory distress. Clear to auscultation bilaterally - no crackles, wheezing, or rhonchi. Cardiovascular: Heart rate and rhythm normal. Normal S1, S2 - no murmurs, gallops, or pericardial rub. Abdomen: Soft, non tender, +BS Extremities: No edema. No clubbing or cyanosis of the fingernails. Neurologic: Moves all four extremities MSK: Normal movements of extremities. Gait normal Psychiatric: Intact judgement and insight. RESULTS/DATA Pulmonary Function Test Results No testing done. Chest Radiograph No testing done. Chest CT Scan No testing done. Echocardiogram Labwork No results found for: WBC , HGB , HCT , MCV , PLT No results found for: GLUCOSE , CALCIUM , NA , K , CO2 , CL , BUN , CREATININE No results found for: ALT , AST , GGT , ALKPHOS , BILITOT No results found for: PROTIME , INR , PTT No results found for: ICIGE , IGE , ICA04 , ASPFU , IGG , IGA , IGM Peripheral Eosinophil Count/Percentage: No results found for: EOSABS , EOSPCT ASSESSMENT/PLAN Ms. Gregory is a 78 y.o. female, with no significant past medical history, who is a never smoker, who presents to a [facility] for an initial evaluation for shortness of breath. Echo 2022: LVEF 65%. Mild aortic valve regurgitation. RA is normal size. RV is normal size and function. 02/2023: Normal combined limited exercise and Lexiscan Myoview cardiac perfusion imaging stress test. Problem List and Orders Problem List Items Addressed This Visit None Visit Diagnoses Sarcoid - Primary Relevant Orders CBC and Auto Differential (Completed) Comprehensive Metabolic Panel (Completed) Complete Pulmonary Function Test Pre/Post Bronchodilator (Spirometry Pre/Post/DLCO/Lung Volumes) Vitamin D 1,25 Dihydroxy (for eval of hypercalcemia) Assessment and Plan / Recommendations: Problem List Items Addressed This Visit None Shortness of breath Possible Sarcoidosis - will get PFTs - CBC wdiff, CMP, Vit D 1-25, serum calcium Lung nodules; some calcified (on Cardiac Score 2022) - will get CT Chest imaging from [place] sent over (last CT Chest 08/2024) - will get set up for bronchoscopy Follow up with Dr. Mo in 1 month If you have any questions please call the office [phone] Thank you for visiting the Pulmonary clinic today! Cathy Benitez CNP [phone] documented in this encounter [facility] Work Phone: 09-09-2024 History of Present illness Narrative Most recent office visit was in February 2023 at which time she was advised for as needed follow-up. Subjective : Accompanied by daughter to the office. Daughter Florence used to be an COMMUNICATION AND OUTREACH MANAGER at [employer]. Patient has persistent almost class III shortness of breath, activity such as going up a short flight of stairs or doing second steward make her short of breath. At times [...] of COVID with pneumonia 2020 4. 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 Echocardiogram December 2022-LVEF 65% mild aortic [...] be referred to Dr.Adham Shaun Topete at [facility]. Patient and daughter would very much want [...] discussion and plan. documented in this encounter [facility] Work Phone: 09-09-2024 Instructions Conchita Rodriges LPN [...] instructions on exercise. documented in this encounter [facility] Work Phone: 09-05-2024 History of Present illness [...] limited to risks of scarring, darker or scratch polisher pigmentary changes, recurrence, incomplete removal and infection. [...] Visit: as scheduled documented in this encounter [facility] 04-07-2023 Evaluation note Encounter Date Diagnosis Assessment Notes Mar, Inflamed seborrheic keratosis (ICD-10 - L82.0) cryotherapy on lesion [facility] Other 06-09-2023 Evaluation note* Encounter Date Diagnosis Assessment Notes Treatment Notes Treatment Clinical Notes Mar, Inflamed seborrheic keratosis (ICD-10 - L82.0) cryotherapy on lesion. There is no tick bite. [facility] Other 03-21-2023 Evaluation note* Encounter Date Diagnosis Assessment Notes Treatment Notes Treatment Clinical Notes Dec, Dyspnea, unspecified (ICD-10 - R06.00) Dec, Other abnormalities of breathing (ICD-10 - R06.89) Dec, Abnormal EKG (ICD-10 - R94.31) [facility] Other 03-06-2023 Evaluation note* Encounter Date Diagnosis Assessment Notes Treatment Notes Treatment Clinical Notes Dec, Leg edema (ICD-10 - R60.0) Discussed differential including heart failure. Pt would like to get tests to have a cause for her ongoing symptoms. Dec, Dyspnea on exertion (ICD-10 - R06.09) PFT this week. Complete tests as ordered. Pt agrees. [facility] Other Chief complaint Narrative - ReportedPATRICREGINA GREGORY is being seen for a consultation for.-[facility] [address] DO Work Phone: Evaluation noteNo InformationNort[employer] Other Evaluation note* Diagnosis Onset Date Resolution Status Calcified lymph nodes acute Multiple pulmonary nodules a [facility] Work Phone: Evaluation note* Diagnosis Onset Date Resolution Status Urinary frequency acute [facility] Work Phone: Evaluation note* Diagnosis Other atopic dermatitis- Primary Bug bite without infection, initial encounter Actinic keratosis documented in this encounter [facility] HealthcareEvaluation note* Diagnosis SOTO (dyspnea on exertion) Other dyspnea and respiratory abnormality Mixed hyperlipidemia Never smoked cigarettes Body mass index (BMI) 28.0-28.9, adult CRLD (chronic restrictive lung disease) Other diseases of lung, not elsewhere classified Personal history of COVID-19 Stage 3a chronic kidney disease (Multi) documented in this encounter [facility] Work Phone: Evaluation note* Diagnosis Sarcoid- Primary Sarcoidosis Shortness of breath documented in this encounter [facility] Work Phone: Evaluation note* Diagnosis Sarcoid Sarcoidosis documented in this encounter [facility] Work Phone: Evaluation note* Diagnosis Sarcoidosis- Primary documented in this encounter [facility] Work Phone: Evaluation note* Diagnosis CRLD (chronic restrictive lung disease)- Primary Other diseases of lung, not elsewhere classified SOTO (dyspnea on exertion) Other dyspnea and respiratory abnormality Stage 3a chronic kidney disease (Multi) Never smoked cigarettes Mixed hyperlipidemia Body mass index (BMI) 28.0-28.9, adult documented in this encounter [facility] Work Phone: Evaluation note* Diagnosis Seborrheic keratosis- Primary Xerosis cutis Other specified disease of sebaceous glands Lentigines Actinic keratosis Neoplasm of unspecified behavior of bone, soft tissue, and skin Capillary angioma Nevus, non-neoplastic Sebaceous hyperplasia of face Seborrheic keratosis, inflamed Personal history of other malignant neoplasm of skin documented in this encounter [facility] HealthcareHistory general Narrative - Reported* Type Description Date [...] History T&A Hospitalization History SEE SURGICAL HX [facility] Other History of Present illness Narrative* 77-year-old [...] times, but not consistently, and that the pre parole counseling aide felt that her shortness of breath is [...] echocardiogram that was done on 01/16/2023 at [facility]. * Assessment: * 1. 77-year-old with exertional [...] COVID with pneumonia 2020 * 4. Active suárez * 5. Echocardiogram December 2022-LVEF 65% mild [...] study, may switch to Lexiscan Myoview as needed * 3. We talked [...] if further questions arise, * Sincerely, * Kathleen Castro MD [place] [address] DO Work Phone: [facility] for visit Narrative* PFT (Routine) - Authorized Specialty Diagnoses / Procedures Referred By Michel t Referred To Contact Diagnoses Sarcoid Procedures Complete Pulmonary Function Test Pre/Post Bronchodilator (Spirometry Pre/Post/DLCO/Lung Volumes) Cathy Benitez, BAGMAN/WOMAN-ARMED SECURITY PROFESSIONAL [address] [facility], [address] [place] [address] Phone: tel: fax: Referral ID Status Reason Start Date Expiration Date V isits Requested Visits Authorized [id number] Authorized 10/15/2024 10/15/2025 1 1 [facility] Work Phone: Summary Purpose Family History No [...] 1 Abnormal EKG (R94.31 ) Referral Organization [facility] vito Referring Provider First Name Alexander Referring Provider Last Name Nabor Referring Provider Specialty Family [facility] Referred Organization [facility] enter Referred Provider Brandt Ramírez Referred Address [address] [place] [address] Referred Provider Specialty Cardiology Referral Priority Routine General Notes Bindu Thomas 12:56:01 PM >received today, attachments made, notes locked, and referral faxed Chief Complaint and Reason for Visit Chief Complaint wellness Reason for Visit Urinary frequency Additional Source Comments INFORMATION SOURCE (unrecogn ized section and content) DATE CREATED AUTHOR 10/20/2018 [facility] DATE CREATED AUTHOR AUTHOR'S ORGANIZ ATION 02/13/2023 [facility] [place] DATE CREATED AUTHOR AUTHOR'S ORGANIZ ATION 02/14/2023 [employer] DATE CREATED AUTHOR AUTHOR'S ORGANIZ ATION 03/03/2023 [facility] DATE CREATED AUTHOR AUTHOR'S ORGANIZ ATION 04/07/2023 [facility] DATE CREATED AUTHOR AUTHOR'S ORGANIZ ATION 01/26/2024 [facility] DATE CREATED AUTHOR AUTHOR'S ORGANIZ ATION 10/22/2024 [facility] DATE CREATED AUTHOR AUTHOR'S ORGANIZ ATION 12/24/2024 [facility] DATE CREATED AUTHOR AUTHOR'S ORGANIZ ATION 01/01/2025 [facility] DATE CREATED AUTHOR AUTHOR'S ORGANIZ ATION 02/02/2025 [facility] EPIC REASON FOR VISIT (unrecogniz ed section and content) Reason Comments Follow-up 1 year Specialty Diagnoses / Procedures Referred By Contac t Referred To Contact Diagnoses SOTO (dyspnea on exertion) Procedures ECG 12 Lead Kathleen Castro MD [address] [place] [id number] Phone: tel: fax: Referral ID Status Reason Start Date Expiration Date V isits Requested Visits Authorized [id number] Authorized 09/09/2024 09/09/2025 1 1 Reason Comments Lung Eval Second opinion. Covi d 2020, Shortness of breath Reason Comments follow up sarcodosis Reason Comments Follow-up 3 month Specialty Diagnoses / Procedures Referred By Michel nolan Referred To Contact Cardiology Diagnoses Mixed hyperlipidemia Procedures Follow Up In Cardiology Kathleen Castro MD [address] [place] [address] Phone: tel: fax: Kathleen Castro MD [address] [place] [address] Phone: tel: fax: Referral ID Status Reason Start Date Expiration Date V isits Requested Visits Authorized [id number] Authorized 09/09/2024 09/09/2025 1 1 Care Teams (unrecognized sec tion and content) Team Status: Active Member Role Status Dates Alexander Tomlin MD Primary Care Provider Active Team Status: Active Member Role Status Dates Alexander Tomlin MD Primary Care Provider Active Start: July 04, 2024 Dayanna LARA DO Attending Provider Active Start: July 04, 2024 Team Status: Inactive Member Role Status Dates Alexander Tomlin MD Primary Care Provide r, Attending Provider Active Start: August 02, 2024 End: August 02, 2024 Team Status: Inactive Member Role Status Dates Alexander Tomlin MD Primary Care Provide r, Attending Provider Active Start: December 29, 2023 End: December 29, 2023 Team Status: Active Member Role Status Dates Alexander Tomlin MD Primary Care Provide r, Attending Provider Active Start: January 01, 2024 Team Status: Inactive Member Role Status Dates Alexander Tomlin MD Primary Care Provider Active Start: January 22, 2024 End: January 22, 2024 Dayanna LARA DO Attending Provider Active Start: January 22, 2024 End: January 22, 2024 Sand Operator Relationship Specialty Start Date End Date Alexander Tomlin MD [address] [place], [place] [id number] PCP - General 01/18/23 Sand Operator Relationship Specialty [place] [address] [place] [address] PCP - General 01/18/23 Sand Operator Relationship Specialty Start Date End Date Alexander Tomlin MD [address] [place] [address] PCP - General 01/18/23 Sand Operator Relationship Specialty [place] [address] [place] [address] PCP - General 01/18/23 Goals (unrecognized section [...] BE BASED ON THE PRIMARY CLINICAL RECORDS. [facility]. provides no warranty or guarantee of the accuracy or completeness of information in this document.
[2025-03-11] MEDS: ALBUTEROL SULFATE 2.5 MG/3 ML VIAL NEB IH (22:15)
[2025-03-11] MEDS: METHYLPREDNISOLONE SOD SUCC PF 125 MG/2 ML VIAL IVP (22:18)
[2025-03-11 22:30] LABS: Basophils Absolute Auto 0.1 10^3/uL (0.0-0.1); Basophils Percent Auto 0.5 % (0.2-2.0); Eosinophils Absolute Auto 0.4 10^3/uL (0.0-0.7); Hematocrit 44.6 % (36.0-48.0); Hemoglobin 14.4 g/dL (12.0-16.0); Immature Granulocytes Abs Auto 0.08 10^3/uL (0.00-0.03); Immature Granulocytes Pct Auto 0.6 % (0.0-0.5); Mean Corpuscular HGB Conc 32.3 g/dL (29.9-35.2); Mean Corpuscular Hemoglobin 31.1 pg (26.7-34.0); Mean Corpuscular Volume 96.3 fL (81.0-99.0); Mean Platelet Volume 9.3 fL (9.5-13.5); Monocytes Absolute Auto 0.8 10^3/uL (0.3-0.8); Monocytes Percent Auto 6.3 % (1.7-12.0); Neutrophils Absolute Auto 7.6 10^3/uL (1.4-6.5); Neutrophils Percent Auto 58.6 % (43.0-75.0); Platelet Count 269 10^3/uL (150-450); Red Blood Count 4.63 10^6/uL (4.20-5.40); Red Cell Distribution Width 13.4 % (11.0-15.0)
[2025-03-11 22:49] LABS: Anion Gap 12.5; BUN Creatinine Ratio 12.9; Calcium 9.6 mg/dL (8.5-10.1); Carbon Dioxide 26.6 mmol/L (21.0-32.0); Chloride 102 mmol/L (98-107); Estimated GFR (African America 44 (>=60 mL/min/1.73m^2); Estimated GFR (Non-African Ame 36 (>=60 mL/min/1.73m^2); Glucose 281 mg/dL (74-106); Potassium 4.1 mmol/L (3.5-5.1); Sodium 137 mmol/L (136-145)
[2025-03-11 22:52] LABS: D Dimer 1.44 mg/L FEU (<=0.59); Troponin I High Sensitivity 69.6 pg/mL (4.0-51.3)
[2025-03-11 22:55] LABS: Allen Test POSITIVE (POSITIVE); BIPAP Pressure 16/8; Base Excess ABG -5.4 mmol/L (-2.0-2.0); Fractionated Inspired Oxygen 100 %; HCO3 ABG 23.3 mmol/L (22.0-26.0); O2 Mode BIPAP; Oxygen Saturation ABG 91.2 %; PO2 ABG 74.1 mmHg (80.0-100.0); Puncture Site L RADIAL
[2025-03-11 22:56] LABS: ABG PCO2 65.3 mmHg (35.0-45.0)
[2025-03-11] MEDS: LORAZEPAM 2 MG/ML VIAL IV (23:11)
[2025-03-11] MEDS: ETOMIDATE 20 MG/10 ML VIAL IVP (23:13)
[2025-03-11 23:19] LABS: Influenza Virus A Antigen Negative; Influenza Virus B Antigen Negative; Internal Control Within Normal Limits; SARS-CoV-2 Ag NEGATIVE (NEGATIVE)
[2025-03-11] MEDS: PROPOFOL 1,000 MG/100 ML VIAL 2.517 MG IV (23:25)
[2025-03-12] VITALS (31 sets, daily range): BP systolic 83–126; BP diastolic 50–89; PULSE 102–139; TEMP 36.9; O2SAT 90–100
--- NOTE | 2025-03-12 00:01 | ED.SOB1 ---
HPI - SOB/Dyspnea General Chief Complaint: Shortness of Breath/Dyspnea Stated Complaint: shortness of breath Time Seen by Provider: 03/11/25 22:09 Source: other Source comment: [facility] Mode of arrival: ambulance History of Present Illness HPI Narrative: past history of sarcoid. COVID19 4 years ago. Abruptly became short of breath tonight. Squad found her in respiratory failure in severe distress and pulse ox 50s. Cpap placed and patient given nebulizer treatment and magnesium. Arrives in severe respiratory distress. She is awake and able to speak in 1-2 word responses. Denies any pain. family states she has been coughing for a few days. No fever Related Data Home Medications ?Medication ?Instructions ?Recorded ?Confirmed Standard Process Beta Food 01/01/24 Supplement Standard Process Immuplex 01/01/24 Supplement albuterol sulfate 90 mcg/actuation 2 inh inhalation Q6H PRN shortness 01/01/24 01/22/24 aerosol inhaler (ProAir HFA) of breath or wheezing ascorbic acid (vitamin C) 1,000 mg 1 g PO DAILY 01/01/24 01/22/24 capsule calcium 100 mg capsule mg PO 01/01/24 cholecalciferol (vitamin D3) 25 25 mcg PO DAILY 01/01/24 01/22/24 mcg (1,000 unit) capsule loratadine 10 mg tablet (Claritin) 10 mg PO DAILY PRN allergy symptoms 01/01/24 01/22/24 Allergies Allergy/AdvReac Type Severity Reaction Status Date / Time iodine Allergy Rash Verified 01/01/24 12:42 Review of Systems ROS Status of ROS unobtainable due to mental status [facility] Medical History (Updated 03/12/25 @ 02:40 by Monroe Montague MD) Multiple pulmonary nodules ?R91.8 - Other nonspecific abnormal finding of lung field (ICD-10) COVID-19 (2020) ?U07.1 - COVID-19 (ICD-10) Heartburn ?R12 - Heartburn (ICD-10) Dyspnea on exertion ?R06.09 - Other forms of dyspnea (ICD-10) Surgical History (Updated 01/22/24 @ 07:09 by Leeanne Walker) History of appendectomy ?Z90.49 - Acquired absence of other specified parts of digestive tract (ICD-10) History of colonoscopy ?Z98.890 - Other specified postprocedural states (ICD-10) History of section ?Z98.891 - History of uterine scar from previous surgery (ICD-10) History of dilation and curettage ?Z98.890 - Other specified postprocedural states (ICD-10) History of tonsillectomy ?Z90.89 - Acquired absence of other organs (ICD-10) Family History (Updated 01/01/24 @ 12:49 by Lorena Cotter NP) Other Family history of breast cancer Family history of myocardial infarction Social History (Updated 01/01/24 @ 12:46 by Lorena Cotter NP) Within the past year, how often did you have a drink containing alcohol: 2-3 times a week Smoking status: Never smoker Non-prescribed substance use: denies use Highest level of school completed/degree received: some college, no degree Exam Constitutional Vital Signs, click to edit/add: Last Vital Signs Pulse 105 H 03/12/25 02:25 Resp 39 H 03/12/25 01:00 BP 115/73 03/12/25 02:25 Pulse Ox 91 L 03/12/25 01:30 O2 Del Method BIPAP 03/11/25 22:26 FiO2 80 03/12/25 01:10 Common normals: alert General appearance: in distress [facility] Common normals: normocephalic and head/scalp atraumatic Respiratory Other: few rhonchii. no wheezes. severe resp distress Cardio Rate: tachycardic GI Common normals: Normal to inspection, nondistended, normoactive bowel sounds present, soft to palpation and non-tender Extremity Common normals: normal to inspection and full ROM Neuro Common normals: moves all extremities Sensorium/orientation: awake Course Vital Signs Vital signs: Vital Signs Pulse Rate 115 H 03/11/25 22:08 Respiratory Rate 34 H 03/11/25 22:08 Blood Pressure 201/123 H 03/11/25 22:08 Pulse Oximetry 52 L 03/11/25 22:08 Oxygen Delivery Method CPAP 03/11/25 22:08 Pulse Rate 105 H 03/12/25 02:25 Respiratory Rate 39 H 03/12/25 01:00 Blood Pressure 115/73 03/12/25 02:25 Pulse Oximetry 91 L 03/12/25 01:30 Oxygen Delivery Method BIPAP 03/11/25 22:26 Fraction of Inspired Oxygen 80 03/12/25 01:10 MDM - SOB/Dyspnea MDM Narrative Medical decision making narrative: patient presents with acute shortness of breath. History of sarcoid. Arrives in severe distress. Initially switched form Cpap to bipap and her pulse ox increased from 50s to 93%. she however remained tachypnea. ABGs on bipap with pH 7.16, pC02 65, p02 74. troponin mildly elevated at 69.6(4-51.3) EKG with sinus tach, ST depression and Right ventricular conduction delay patient becoming tired from her breathing and decision made along with ABGs to intubate the patient . Patient and family informed. D-dimer returned positive. CTA chest ordered. chest xray report per radiology remarkable for enlarged heart , CHF and pneumonia. Her BP has decreased to 88 systolic . Propofol drip dose decreased to 10mcg CTA returns with findings of multifocal pneumonia with patchy and confluent areas of abnormality. small right pleural effusion. mild enlarged heart size with trace volume pericardial effusion . BP has increased to 115/73 with decrease propofol drip. Patient remains adequately sedated Lab Data Labs: Lab Results 03/11/25 03/11/25 03/11/25 Range/Units 22:13 22:45 22:48 WBC 13.0 H (4.0-11.0) 10^3/uL RBC 4.63 (4.20-5.40) 10^6/uL Hgb 14.4 (12.0-16.0) g/dL Hct 44.6 (36.0-48.0) % MCV 96.3 (81.0-99.0) fL MCH 31.1 (26.7-34.0) pg MCHC 32.3 (29.9-35.2) g/dL RDW 13.4 (11.0-15.0) % Plt Count 269 (150-450) 10^3/uL MPV 9.3 L (9.5-13.5) fL Neut % (Auto) 58.6 (43.0-75.0) % Lymph % (Auto) 31.0 (20.5-60.0) % [place] % (Auto) 6.3 (1.7-12.0) % Eos % (Auto) 3.0 (0.9-7.0) % Baso % (Auto) 0.5 (0.2-2.0) % Neut # (Auto) 7.6 H (1.4-6.5) 10^3/uL Lymph # (Auto) 4.0 H (1.2-3.8) 10^3/uL [place] # (Auto) 0.8 (0.3-0.8) 10^3/uL Eos # (Auto) 0.4 (0.0-0.7) 10^3/uL Baso # (Auto) 0.1 (0.0-0.1) 10^3/uL Abs Immat Gran (auto) 0.08 H (0.00-0.03) 10^3/uL Imm/Tot Granulo (auto) 0.6 H (0.0-0.5) % D-Dimer 1.44 H* (<=0.59) mg/L FEU Puncture Site L radial ABG pH 7.160 L* (7.350-7.450) ABG pCO2 65.3 H* (35.0-45.0) mmHg ABG pO2 74.1 L (80.0-100.0) mmHg ABG HCO3 23.3 (22.0-26.0) mmol/L ABG O2 Saturation 91.2 % ABG Base Excess -5.4 L (-2.0-2.0) mmol/L Víctor Test Positive (POSITIVE) FiO2 100 % BiPAP 16/8 Sodium 137 (136-145) mmol/L Potassium 4.1 (3.5-5.1) mmol/L Chloride 102 (98-107) mmol/L Carbon Dioxide 26.6 (21.0-32.0) mmol/L Anion Gap 12.5 BUN 18.0 (7.0-18.0) mg/dL Creatinine 1.40 H (0.55-1.02) mg/dL Est GFR ( Amer) 44 L (>=60 mL/min/1.73m^2) Est GFR (Non-Af Amer) 36 L (>=60 mL/min/1.73m^2) BUN/Creatinine Ratio 12.9 Glucose 281 H (74-106) mg/dL Calcium 9.6 (8.5-10.1) mg/dL Troponin I High Sens 69.6 H* (4.0-51.3) pg/mL Influenza Type A Ag Negative Influenza Type B Ag Negative SARS-CoV-2 Ag (CV2AG) Negative (NEGATIVE) Critical Care Time Critical Care Time Total Critical Care Time: 90 Discharge Plan Discharge Chief Complaint: Shortness of Breath/Dyspnea Clinical Impression: Community acquired pneumonia, Respiratory failure, Acute respiratory acidosis Patient Disposition: [facility] Procedures ED Procedure Instructions Procedures Procedures: patient in severe respiratory distress. conscious sedation with Ativan and Etomidate. Patient intubated on first attempt with # 3 straight blade and size # 7 tube. No complication. Post procedure xray with proper position of the tube
[2025-03-12] MEDS: CEFTRIAXONE 1,000 MG in 0.9 % SODIUM CHLORIDE 50 ML 100 MG IV (00:05)
[2025-03-12] MEDS: DIPHENHYDRAMINE HCL 50 MG/ML VIAL 75 MG IVP (00:35)
--- NOTE | 2025-03-12 01:31 | RESP.RT ---
decreased to 60% fio2 at this time SpO2 = 96%
[2025-03-12] MEDS: AZITHROMYCIN 500 MG in 0.9 % SODIUM CHLORIDE 250 ML 250 MG IV (02:05)
== END 2025-03-12 04:00 | disposition short-term general hospital (02) ==
PROVIDERS: Emergency Provider Internal Medicine; PCP Family Medicine
DX: J96.02 Acute respiratory failure with hypercapnia (principal); J18.9 Pneumonia, unspecified organism; R79.89 Other specified abnormal findings of blood chemistry; Z86.16 Personal history of COVID-19; D86.9 Sarcoidosis, unspecified
CPT/HCPCS: 31500; 36415; 36600; 51702; 71045; 71275; 80048; 82805; 84484; 85025; 85378; 87040; 87804; 87811; 93005; 94002; 94003; 94640; 94660; 96365; 96366; 96368; 96375; 99285; J0456; J0696; J1200; J2060; J2704; J2919; Q9967

== ENCOUNTER 2025-05-12 10:04 | Outpatient (OUT) | payer MEDICARE, OTHER, SELFPAY ==
--- NOTE | 2025-05-12 10:00 | CA_ITS ---
Patient Name: PILO GREGORY MR#: [id number] : 1945 Exam Date: 05/12/2025 Ordering Doctor: LUIS BLACKMON ECHOCARDIOGRAM REPORT PROCEDURE: CA ECHO DOPPLER COMPLETE INDICATIONS: ischemic cardiomyopathy, MD, cardiac stents, hypertension COMPARISON: None. DESCRIPTION: COMPLETE ECHOCARDIOGRAM Real-time transthoracic echocardiography with 2D, M-mode, spectral and color flow Doppler performed. QUALITY: Technical quality was good. LEFT VENTRICLE: Normal chamber size. Mild left ventricular hypertrophy. LV EF: Global left ventricular systolic function is normal; visually estimated ejection fraction is 55 to 60%. No significant wall motion abnormalities. DIASTOLIC: Normal diastolic function. ATRIAL SEPTUM: Visually appears intact. LEFT ATRIUM: Normal chamber size. RIGHT ATRIUM: Normal chamber size. RIGHT VENTRICLE: Normal chamber size. Normal right ventricular systolic function. TRICUSPID VALVE: Normal mobility and thickness. No stenosis with trivial regurgitation. No evidence of pulmonary hypertension. RVSP 27 mmHg MITRAL VALVE: Normal mobility and thickness. No evidence of mitral valve stenosis. There is no mitral annular calcification. Trivial mitral regurgitation. AORTIC VALVE: Normal trileaflet appearance. No visible sclerosis. Normal leaflet mobility. No evidence of aortic valve stenosis. No aortic regurgitation. AORTIC ROOT: Normal diameter and appearance. Ascending aorta is normal in size. PULMONIC VALVE: Normal thickness and mobility. No stenosis. Trivial regurgitation. PERICARDIUM: Anterior free space; trivial effusion versus fat pad. IVC: Collapses with inspiration. CONCLUSION: 1. Global left ventricular systolic function is normal; visually estimated ejection fraction is 55 to 60% 2. Normal right ventricular size and systolic function 3. Mild left ventricular hypertrophy 4. Normal diastolic function 5. No significant valvular abnormalities 6. Anterior free space; trivial effusion versus fat pad Adult Echocardiography Procedure Report Left Ventricle LVEDD (3.7 - 5.6 cm): 4.24 cm LVESD (2.2 - 4.0 cm): 3.04 cm LVIVS thickness (0.6 - 1.2 cm): 1.25 cm LVPW thickness (0.5 - 1.0 cm): 0.91 cm e': 0.08 m/s E - e': 9.55 LVOT Max Gradient: 1.84 mm[Hg] LVOT Area (cm2): 0.68 m/s Peak Velocity (LVOT): 0.68 m/s Mean Velocity (LVOT): 0.48 m/s LVOT Diameter 2.10 cm Left Ventricular Ejection Fraction: 57.37 % Left Atrium LA Volume Index (2D A2C): 35.40 ml/m2 Left Atrium Systolic Dimension: 2.97 cm Mitral Valve MV E to A Ratio: 0.90 Mitral Valve A-Wave Peak Velocity: 0.84 m/s Mitral Valve E-Wave Peak Velocity: 0.76 m/s Right Ventricle Aorta AO Root Diam: 3.29 cm Ascending Ao Diam: 2.84 cm Aortic Valve AoV Area (Peak Jarred): 1.88 cm2, 1.88 cm2 AoV Area (VTI): 2.14 cm2, 2.14 cm2 Peak Velocity(Antegrade Flow): 1.25 m/s Peak Gradient(Antegrade Flow): 6.28 mm[Hg] Mean Velocity(Antegrade Flow): 0.82 m/s Mean Gradient(Antegrade Flow): 3.14 mm[Hg] Velocity Time Integral: 28.57 cm Tricuspid Valve Peak Velocity (Regurgitant Flow): 2.46 m/s Pulmonic Valve Peak Gradient: 2.83 mm[Hg], 2.26 mm[Hg] Right Atrium Right Atrium Systolic Pressure: 31.02 ml, 31.02 ml Dictated by: Joshua Garcia M.D. on 05/13/2025 at 13:00 Approved by: Joshua Garcia M.D. on 05/13/2025 at 13:13
--- OUTSIDE RECORDS SUMMARY | 2025-05-12 10:05 | XMS_ITS | Clinical Summary ---
Author Organization [facility] Address [address] [place] [address] Phone Care Team Providers Care Drive Worker Name Role Phone Katerina Mortensen MD Primary Care Provider [phone] Allergies No known active allergies Medications multivitamin tablet Take 1 tablet by mouth once daily. Active fluticasone (Flonase) 50 mcg/actuation nasal spray Administer 1 spray into each nostril once daily. Shake gently. Before first use, prime pump. After use, clean tip and replace cap. Active aflibercept (Eylea) 2 mg/0.05 mL intra-ocular injection 0.05 mL (2 mg) by intravitreal route 1 time. Every 4 months Active Active Problems Problem Noted Date Diagnosed Date SOTO (dyspnea on exertion) 09/09/2024 Never smoked cigarettes 09/09/2024 Body mass index (BMI) 28.0-28.9, adult 4 CRLD (chronic restrictive lung disease) 09/09/20 24 Personal history of COVID-19 09/09/2024 Stage 3a chronic kidney disease (Multi) 09/09/20 24 Resolved Problems Problem Noted Date Diagnosed Date Resolved Date Mixed hyperlipidemia 09/09/2024 025 Immunizations Immunization Administration Dates Next Due Influenza, Unspecified 10/08/2016 Pneumococcal conjugate vaccine, 13-valent (PREVN AR 13) 10/06/2016,04/09/2015 Pneumococcal polysaccharide vaccine, 23-valent, age 2 years and older (PNEUMOVAX 23) 10/25/2019 Family History Medical History Relation Name Comments Heart failure Father Cancer Mother Relation Name Status Comments Father Mother Social History Tobacco Use Types Packs/Day Years Used Date Smoking Tobacco: Never Smokeless Tobacco: Never Alcohol Use Standard Drinks/Week Comments Yes 0 (1 standard drink = 0.6 oz pur e alcohol) PHQ-2 Answer Date Recorded Patient Health Questionnaire-2 Score 0 12/10/2024 Comments Unknown Sex and Gender Information Value Date Recorded Sex Assigned at Not on file Legal Sex Female 3:23 PM EDT Gender Identity Not on file Sexual Orientation Not on file Last Filed Vital Signs Vital Sign Reading Time Taken Comments Blood Pressure 130/60 12/23/2024 12:40 PM EST Pulse 62 12/23/2024 12:40 PM EST Temperature 36.5 C (97.7 F) 10/15/2024 9:21 AM EST Respiratory Rate 16 10/15/2024 9:21 AM EST Oxygen Saturation 95% 10/15/2024 9:21 AM EST Inhaled Oxygen Concentration - - Weight 73.8 kg (162 lb 12.8 oz) 025 12:40 PM EST Height 161.3 cm (5' 3.5 ) 12/23/2024 12 :40 PM EST Body Mass Index 28.39 12/23/2024 12:40 PM EST Plan of Treatment Health Maintenance Due Date Last Done Comments Bone Density Scan 1945 Lipid Panel 1945 Medicare Annual Wellness Vis it (AWV) 1945 Hepatitis C Screening 1964 CKD: Urine Protein Screening 1965 DTaP/Tdap/Td Vaccines (1 - Tdap) 1968 Zoster Vaccines (1 of 2) 1996 RSV High Risk: (Elderly (60+ ) or Population) (1 - 1-dose 75+ series) 2021 COVID-19 Vaccine ( - 2023-2 5 season) 2024 Influenza Vaccine (#1) 2025 10/08/2016 Pneumococcal Vaccine Completed 10/25/2019, 10/06/2016, 04/09/2015 HIB Vaccines Aged Out No longer eligi ble based on patient's age to complete this topic HPV Vaccines (No Doses Required) Completed Hepatitis A Vaccines Aged Out No long er eligible based on patient's age to complete this topic Hepatitis B Vaccines Aged Out No long er eligible based on patient's age to complete this topic IPV Vaccines Aged Out No longer eligi ble based on patient's age to complete this topic Meningococcal Vaccine Aged Out No ace sydney eligible based on patient's age to complete this topic Rotavirus Vaccines Aged Out No longer eligible based on patient's age to complete this topic Insurance MEDICARE PART A AND B GENERIC MEDICARE SUPPLEMENT MEDICARE PART A AND B GENERIC MEDICARE SUPPLEMENT Member Subscriber Plan / Payer (Ef fective 2024-Present) Name:Leeanne Caban Relation to Subscriber:Self Name:Leeanne Caban Payer ID:Not on file Group ID:Not on file Type:Not on file Address: [place] [id number] Worker Relationship Specialty Start Date End Date Katerina Mortensen MD [address] [place], [place] [phone] PCP - General 01/18/23
--- OUTSIDE RECORDS SUMMARY | 2025-05-12 10:05 | XMS_ITS | Encounter Summary ---
Author Organization [facility] Address [address] [place] [address] Phone Care Team Providers Care Immigration Attorney Name Role Phone Katerina Mortensen MD Primary Care Provider [phone] Encounter Details Date Type Department Care Team (Late st Contact Info) Description 10/02/2024 Scanned Document [facility] [address] [place] [id number] Scanning, Generic Provider Social History Tobacco Use Types Packs/Day Years Used Date Smoking Tobacco: Never Smokeless Tobacco: Never Alcohol Use Standard Drinks/Week Comments Yes 0 (1 standard drink = 0.6 oz pur e alcohol) Comments Unknown Sex and Gender Information Value Date Recorded Sex Assigned at Not on file Legal Sex Female 3:23 PM EDT Gender Identity Not on file Sexual Orientation Not on file COVID-19 Exposure Response Date Recorded In the last 10 days, have yo u been in contact with someone who was confirmed or suspected to have Coronavirus/COVID-19? No / Unsure 09/09/2024 2:11 PM EST documented as of this encounter Plan of Treatment Not on file documented as of this encounter Procedures Procedure Name Priority Date/Time Associated Diagnosis Comments OUTSIDE LAB SCAN 10/02/2024 OUTSIDE LAB SCAN 10/02/2024 documented in this encounter Results * OUTSIDE LAB SCAN (10/02/2024) Narrative 10/02/2024 Ordered by an unspecified provider. us Generic Provider Scanning OUTSIDE SCAN Final Result * OUTSIDE LAB SCAN (10/02/2024) Narrative 10/02/2024 Ordered by an unspecified provider. us Generic Provider Scanning OUTSIDE SCAN Final Result documented in this encounter Visit Diagnoses Not on filedocumented in this encounter Additional Health Concerns Assessment Noted Time A fall risk assessment has been complete d for the patient 09/09/2024 2:26 PM EST documented as of this encounter Care Teams Immigration Attorney Relationship Specialty Start Date End Date Katerina Mortensen MD [address] [place] [address] PCP - General 01/18/23 documented as of this encounter
--- OUTSIDE RECORDS SUMMARY | 2025-05-12 10:05 | XMS_ITS | Encounter Summary ---
Author Organization [facility] Address [address] [place] [address] Phone Care Team Providers Care Auto Driver Name Role Phone Katerina Mortensen MD Primary Care Provider [phone] Encounter Details Date Type Department Care Team (Late st Contact Info) Description 07/04/2024 Scanned Document [facility] [address] [place] [id number] Scanning, Generic Provider Social History Tobacco Use Types Packs/Day Years Used Date Smoking Tobacco: Never Assessed Comments Unknown Sex and Gender Information Value Date Recorded Sex Assigned at Not on file Legal Sex Female 3:23 PM EDT Gender Identity Not on file Sexual Orientation Not on file documented as of this encounter Plan of Treatment Not on file documented as of this encounter Visit Diagnoses Not on filedocumented in this encounter Care Teams Auto Driver Relationship Specialty Start Date End Date Katerina Mortensen MD [address] [place] [address] [address] [place] [address] PCP - General 01/18/23 documented as of this encounter
--- OUTSIDE RECORDS SUMMARY | 2025-05-12 10:05 | XMS_ITS | Encounter Summary ---
Author Organization [facility] Address [address] [place] [address] Phone Care Team Providers Care Outfitter Cabin Name Role Phone Katerina Mortensen MD Primary Care Provider [phone] Encounter Details Date Type Department Care Team (Late st Contact Info) Description 10/15/2024 Scanned Document [address] [place] [address] Cathy Benitez, PHOTOGRAPHIC AIDE-PROGRAM PROJECT ANALYST [id number] [facility] [address] [facility], [address] [place] [address] Social History Tobacco Use Types Packs/Day Years Used Date Smoking Tobacco: Never Smokeless Tobacco: Never Alcohol Use Standard Drinks/Week Comments Yes 0 (1 standard drink = 0.6 oz pur e alcohol) PHQ-2 Answer Date Recorded Patient Health Questionnaire-2 Score 0 10/15/2024 Comments Unknown Sex and Gender Information Value Date Recorded Sex Assigned at Not on file Legal Sex Female 3:23 PM EDT Gender Identity Not on file Sexual Orientation Not on file COVID-19 Exposure Response Date Recorded In the last 10 days, have yo u been in contact with someone who was confirmed or suspected to have Coronavirus/COVID-19? No / Unsure 10/15/2024 9:10 AM EST documented as of this encounter Functional Status * Over the past 2 weeks, how often have you been bothered by any of the following problems? Question Answer Date of Assessment Author Little interest or pleasure in doing things Not at all 10/15/2024 9:25 AM EST Jenn Eduardo DIRECTOR CAREER SERVICES Feeling down, depressed, or hopeless Not at all 10/15/2024 9:25 AM EST Jenn Eduardo CMA Patient Health Questionnaire-2 Score 0 10/15/2024 9:25 AM EST Mateus Eduardo r DIRECTOR CAREER SERVICES * Calculated C-SSRS Risk Score (Lifetime/Recent) Answer Date of Assessment Author No Risk Indicated 10/15/2024 9:25 AM EST Jenn Eduardo DIRECTOR CAREER SERVICES * Ruby Suicide Severity Rating Scale (Screener/Recent Self-Report) Question Answer Date of Assessment Author 1. Wish to be (Past 1 Month) No 024 9:25 AM EST Jenn Eduardo CMA 2. Non-Specific Active Suici abdoul Thoughts (Past 1 Month) No 10/15/2024 9:25 AM EST Kenton Eduardo DIRECTOR CAREER SERVICES 6. Suicidal Behavior (Lifetime) No 9:25 AM Jenn Morley CMA documented as of this encounter Plan of Treatment Not on file documented as of this encounter Visit Diagnoses Not on filedocumented in this encounter Additional Health Concerns Assessment Noted Time A fall risk assessment has been complete d for the patient 10/15/2024 9:25 AM EST documented as of this encounter Care Teams Outfitter Cabin Relationship Specialty Start Date End Date Katerina Mortensen MD [address] [place] [address] PCP - General 01/18/23 documented as of this encounter
--- OUTSIDE RECORDS SUMMARY | 2025-05-12 10:05 | XMS_ITS | Encounter Summary ---
Author Organization [facility] Address [address] [place] [address] Care Team Providers Care Career Center Director Name Role Phone Unavailable Primary Care Provider Unavailabl e Encounter Details Date Type Department Care Team (Late st Contact Info) Description 06/01/2023 Abstract [facility] [address] [place] [address] Breanna Landaverde MD [address] [place] [address] Social History Tobacco Use Types Packs/Day Years Used Date Smoking Tobacco: Never Smokeless Tobacco: Never Tobacco Cessation:Counseling Given: Not Answered Comments Unknown Sex and Gender Information Value Date Recorded Sex Assigned at Not on file Legal Sex Female 7:29 PM EDT Gender Identity Not on file Sexual Orientation Not on file documented as of this encounter Plan of Treatment Upcoming Encounters Date Type Department Care Team (Late st Contact Info) Description 01/29/2026 9:00 AM EDT Office Visit [facility] [address] [place] [address] Breanna Landaverde MD [address] [place] [address] documented as of this encounter Visit Diagnoses Not on filedocumented in this encounter
--- OUTSIDE RECORDS SUMMARY | 2025-05-12 10:06 | XMS_ITS | Clinical Summary ---
Author Organization [facility] Address [address] [place] [address] Care Team Providers Care Cowlman Name Role Phone Katerina Mortensen MD Primary Care Provider [phone] Allergies Active Allergy Reactions Criticality Noted Date Comments Iodine Unknown,Rash Low 11/03/2006 Medications albuterol 90 mcg/actuation inhaler Inhale 2 puffs every 6 (six) hours if needed for wheezing. Active ascorbic acid (Vitamin C) 1,000 mg tablet Take 1,000 mg by mouth in the morning. Active alendronate-vitami n D3 (Fosamax Plus D) 70 mg- 5,600 unit tablet Take 1 tablet by mouth every 7 (seven) days. Take in the morning with a full glass of water, on an empty stomach, and do not take anything else by mouth or lie down for the next 30 min. Active loratadine (Claritin Reditabs) 10 mg disintegrating tablet Take 10 mg by mouth in the morning. Active midazolam (Versed) 2 mg/mL syrup Take by mouth 1 (one) time. Active diphenhydrAMINE (BENADryl) 25 mg capsule Take 50 mg by mouth every 6 (six) hours if needed for sleep. Active aspirin 81 mg EC tabletIndications: NSTEMI (non-ST elevated myocardial infarction) (CMS/HCC),Coronary artery disease involving [place] coronary artery of [place] heart without angina pectoris Take 1 tablet (81 mg) by mouth in the morning for 360 doses. 30 tablet 11 5 03/16/20 26 Active atorvastatin (Lipitor) 40 mg tabletIndications: NSTEMI (non-ST elevated myocardial infarction) (CMS/HCC),Coronary artery disease involving [place] coronary artery of [place] heart without angina pectoris Take 1 tablet (40 mg) by mouth at bedtime for 93 doses. 30 tablet 3 5 06/21/20 25 Active clopidogrel (Plavix) 75 mg tabletIndications: NSTEMI (non-ST elevated myocardial infarction) (CMS/HCC),Coronary artery disease involving [place] coronary artery of [place] heart without angina pectoris Take 1 tablet (75 mg) by mouth in the morning for 360 doses. 30 tablet 11 5 03/16/20 26 Active dapagliflozin propanediol (Farxiga) 10 mgIndications:Acut e combined systolic and diastolic heart failure (CMS/HCC) Take 1 tablet (10 mg) by mouth in the morning for 94 doses. 30 tablet 3 5 06/23/20 25 Active metoprolol succinate XL (Toprol-XL) 100 mg 24 hr tabletIndications: Acute combined systolic and diastolic heart failure (CMS/HCC) Take 1 tablet (100 mg) by mouth in the morning for 93 doses. Do not crush or chew. 30 tablet 3 5 06/22/20 25 Active sacubitril-valsart an (Entresto) 24-26 mg tabletIndications: Acute combined systolic and diastolic heart failure (CMS/HCC) Take 1 tablet by mouth two times daily. 30 tablet 1 5 05/19/20 25 Active spironolactone (Aldactone) 25 mg tabletIndications: Acute combined systolic and diastolic heart failure (CMS/HCC) Take 1 tablet (25 mg) by mouth in the morning for 93 doses. 30 tablet 3 5 06/22/20 25 Active furosemide (Lasix) 20 mg tabletIndications: Acute combined systolic and diastolic heart failure (CMS/HCC) Take 1 tablet (20 mg) by mouth in the morning. 30 tablet 5 Active benzonatate (Tessalon) 100 mg capsuleIndications :Viral pneumonia Take 1 capsule (100 mg) by mouth if needed in the morning, at noon, and at bedtime for cough. Do not crush or chew. 20 capsule 5 04/19/20 25 guaiFENesin (Robitussin) 100 mg/5 mL syrupIndications:V iral pneumonia Take 10 mL (200 mg) by mouth every 4 (four) hours if needed for cough. 120 mL 04/19/20 25 Active Problems Problem Noted Date Diagnosed Date Viral pneumonia 03/15/2025 Assessment & Plan (03/19/2025 11:54 AM EDT): - human metapneumovirus positive 5/14 - was placed on ceftriaxone 1 g for potential superimposed bacterial pneumonia in ICU - currently no growth on sputum culture - weaned off steroids Assessment & Plan (03/18/2025 4:00 PM EDT): - human metapneumovirus positive 5/14 - was placed on ceftriaxone 1 g for potential superimposed bacterial pneumonia in ICU - currently no growth on sputum culture - wean steroids Assessment & Plan (03/17/2025 4:06 PM EDT): - human metapneumovirus positive 5/14 - was placed on ceftriaxone 1 g for potential superimposed bacterial pneumonia in ICU - currently no growth on sputum culture - wean steroids Assessment & Plan (03/16/2025 11:56 AM EDT): - human metapneumovirus positive 5/14 - was placed on ceftriaxone 1 g for potential superimposed bacterial pneumonia in ICU - currently no growth on sputum culture - wean steroids Assessment & Plan (03/15/2025 1:28 PM EDT): - human metapneumovirus positive 5/14 - was placed on ceftriaxone 1 g for potential superimposed bacterial pneumonia in ICU - currently no growth on sputum culture - wean steroids Sarcoidosis 03/15/2025 Assessment & Plan (03/19/2025 11:54 AM EDT): - unlikely contributing to current clinical presentation Assessment & Plan (03/18/2025 4:00 PM EDT): - unlikely contributing to current clinical presentation Assessment & Plan (03/17/2025 4:06 PM EDT): - unlikely contributing to current clinical presentation Assessment & Plan (03/16/2025 8:44 AM EDT): - unlikely contributing to current clinical presentation Assessment & Plan (03/15/2025 1:28 PM EDT): - unlikely contributing to current clinical presentation Coronary artery disease 03/15/2025 Assessment & Plan (03/19/2025 11:54 AM EDT): - patient underwent cardiac catheterization 03/14 - LCx 90% stenosis s/p TRIP x 2 - subacute total occlusion RCA s/p TRIP - DAPT with Plavix 1 year and aspirin lifelong -Began having frequent PVCs 03/16, replace K/Mg as appropriate - EP evaluated the patient and considering outpatient PVC ablation but nothing to do during inpatient Assessment & Plan (03/18/2025 4:00 PM EDT): - patient underwent cardiac catheterization 03/14 - LCx 90% stenosis s/p TRIP x 2 - subacute total occlusion RCA s/p TRIP - DAPT with Plavix 1 year and aspirin lifelong -Began having frequent PVCs 03/16, replace K/Mg as appropriate - EP evaluated the patient and considering outpatient PVC ablation but nothing to do during inpatient Assessment & Plan (03/17/2025 4:06 PM EDT): - patient underwent cardiac catheterization 03/14 - LCx 90% stenosis s/p TRIP x 2 - subacute total occlusion RCA s/p TRIP - DAPT with Plavix 1 year and aspirin lifelong -Began having frequent PVCs 03/16, replace K/Mg as appropriate - EP evaluated the patient and considering outpatient PVC ablation but nothing to do during inpatient Assessment & Plan (03/16/2025 8:44 AM EDT): - patient underwent cardiac catheterization 03/14 - LCx 90% stenosis s/p TRIP x 2 - subacute total occlusion RCA s/p TRIP - DAPT with Plavix 1 year and aspirin lifelong Assessment & Plan (03/15/2025 1:28 PM EDT): - patient underwent cardiac catheterization 5/16 - LCx 90% stenosis s/p TRIP x 2 - subacute total occlusion RCA s/p TRIP - DAPT with Plavix 1 year and aspirin lifelong Coronary artery disease invo [place]ving [place] coronary artery of [place] heart without angina pectoris 03/15/2025 Assessment & Plan (03/19/2025 11:54 AM EDT): - see above Assessment & Plan (03/18/2025 4:00 PM EDT): - see above Assessment & Plan (03/17/2025 4:06 PM EDT): - see above Assessment & Plan (03/16/2025 8:44 AM EDT): - see above Assessment & Plan (03/15/2025 1:28 PM EDT): - see above Weakness 03/15/2025 Assessment & Plan (03/19/2025 11:54 AM EDT): -PT/OT - likely deconditioning from ICU - patient also having falls during this hospitalization - CT exhibiting ventriculomegaly out of proportion to the patient's senescent changes, however neurology does not appreciate NPH as driving factor. Will continue to monitor and have the patient follow-up outpatient with neurology in 3 to 4 weeks - SNF placement Assessment & Plan (03/18/2025 4:00 PM EDT): -PT/OT - likely deconditioning from ICU - patient also having falls during this hospitalization - CT exhibiting ventriculomegaly out of proportion to the patient's senescent changes, however neurology does not appreciate NPH as driving factor. Will continue to monitor and have the patient follow-up outpatient with neurology in 3 to 4 weeks - SNF placement Assessment & Plan (03/17/2025 4:06 PM EDT): -PT/OT - likely deconditioning from ICU - patient also having falls during this hospitalization - CT exhibiting ventriculomegaly out of proportion to the patient's senescent changes, however neurology does not appreciate NPH as driving factor. Will continue to monitor and have the patient follow-up outpatient with neurology in 3 to 4 weeks Assessment & Plan (03/16/2025 11:56 AM EDT): -PT/OT - likely deconditioning from ICU - patient also having falls during this hospitalization - patient denies head trauma however obtain CT head as patient is mildly confused today Assessment & Plan (03/15/2025 1:28 PM EDT): -PT/OT -Check TSH Acute hypoxemic respiratory failure 03/12/2025 Assessment & Plan (03/19/2025 11:54 AM EDT): - required intubation with mechanical ventilation with extubation 5/15 - currently on 2 L - wean oxygen as able - appears to be primarily driven by cardiomyopathy however viral pneumonia contributing factor is - pulm consulted for ICU follow-up - pulmonology signed off Assessment & Plan (03/18/2025 4:00 PM EDT): - required intubation with mechanical ventilation with extubation 5/15 - currently on 2 L - wean oxygen as able - appears to be primarily driven by cardiomyopathy however viral pneumonia contributing factor is - pulm consulted for ICU follow-up - pulmonology signed off Assessment & Plan (03/17/2025 4:06 PM EDT): - required intubation with mechanical ventilation with extubation 5/15 - currently on 2 L - wean oxygen as able - appears to be primarily driven by cardiomyopathy however viral pneumonia contributing factor is - pulm consulted for ICU follow-up - pulmonology signed off Assessment & Plan (03/16/2025 11:56 AM EDT): - required intubation with mechanical ventilation with extubation 5/15 - currently on 2 L - wean oxygen as able - appears to be primarily driven by cardiomyopathy however viral pneumonia contributing factor is - pulm consulted for ICU follow-up - check chest x-ray today Assessment & Plan (03/15/2025 1:28 PM EDT): - required intubation with mechanical ventilation with extubation 5/15 - currently on 2 L - wean oxygen as able - appears to be primarily driven by cardiomyopathy however viral pneumonia contributing factor is - pulm consulted for ICU follow-up Acute combined systolic and diastolic heart fail ure 03/12/2025 Assessment & Plan (03/19/2025 11:54 AM EDT): - new onset EF 35% on TTE 5/15 - GDMT titrated as tolerated - Currently net negative 7.4L - further planning from cardiology service - LifeVest prior to discharge Assessment & Plan (03/18/2025 4:00 PM EDT): - new onset EF 35% on TTE 5/15 - GDMT titrated as tolerated - further planning from cardiology service - LifeVest prior to discharge Assessment & Plan (03/17/2025 4:06 PM EDT): - new onset EF 35% on TTE 5/15 - GDMT as tolerated - further planning from cardiology service - LifeVest prior to discharge Assessment & Plan (03/16/2025 8:44 AM EDT): - new onset EF 35% on TTE 5/15 - GDMT as tolerated - further planning from cardiology service Assessment & Plan (03/15/2025 1:28 PM EDT): - new onset EF 35% on TTE 5/15 - GDMT as tolerated - further planning from cardiology service NSTEMI (non-ST elevated myocardial infarction) 0 03/12/2025 Assessment & Plan (03/19/2025 11:54 AM EDT): - see below Assessment & Plan (03/18/2025 4:00 PM EDT): - see below Assessment & Plan (03/17/2025 4:06 PM EDT): - see below Assessment & Plan (03/16/2025 8:44 AM EDT): - see below Assessment & Plan (03/15/2025 1:28 PM EDT): - see below Encounters Date Type Department Care Team Description 03/26/2025 2:40 PM EDT Office Visit [facility] [address] [place] [address] Abraham Shaffer CNP Coronary artery disease involving [place] coronary artery of [place] heart without angina pectoris (Primary Dx); Chronic HFrEF (heart failure with reduced ejection fraction) (CMS/HCC); Cardiomyopathy, ischemic; Status post coronary angiogram; NSVT (nonsustained ventricular tachycardia) (CMS/HCC); Mixed hyperlipidemia 03/20/2025 Orders Only [facility] [address] [place] [address] ProviderKristina MD 03/20/2025 Telephone [facility] Surgery Clinic [address] [place] [address] Jessica Gustafson MA REFERRAL CONSULT 03/14/2025 5:57 PM EDT - 03/14/2025 7:57 PM EDT Surgery [facility] Heart [facility] V[facility] Vascular Lab [address] [place] [address] Doug Stern MD Coronary angiography 03/12/2025 4:56 AM EDT - 03/20/2025 3:15 PM EDT Hospital Encounter [facility] [address] [place] [address] Kaylene Vaz MD Spencer, Caleb T, MD Chang, Kyu Chul, MD Acute hypoxemic respiratory failure (CMS/HCC) (Primary Dx); Acute combined systolic and diastolic heart failure (CMS/HCC); Chronic HFrEF (heart failure with reduced ejection fraction) (CMS/HCC); NSTEMI (non-ST elevated myocardial infarction) (CMS/HCC); Weakness; Coronary artery disease involving [place] coronary artery of [place] heart without angina pectoris; Viral pneumonia; Calculus of gallbladder without cholecystitis without obstruction; Sarcoidosis Discharge Disposition: Nursing Home Facility (03) 03/12/2025 Travel from Last 3 Months Family History Relation Name Status Comments Father Mother Social History Tobacco Use Types Packs/Day Years Used Date Smoking Tobacco: Never Smokeless Tobacco: Never Tobacco Cessation:Counseling Given: Not Answered Alcohol Use Standard Drinks/Week Comments Not Currently 0 (1 standard drink = 0.6 oz pur e alcohol) [facility] Utilities Answer Date Recorded In the past 12 months has th e electric, gas, oil, or water company threatened to shut off services in your home? Patient unable to answer 03/12/2025 Humiliation, Afraid, Rape, a nd Kick questionnaire Answer Date Recorded Within the last year, have y ou been afraid of your partner or ex-partner? Patient unable to answer 03/12/2025 Emotionally Abused Not on file 03/12/2025 Physically Abused Not on file 03/12/2025 Sexually Abused Not on file 03/12/2025 Overall Financial Resource Strain (CARDIA) Answe r Date Recorded How hard is it for you to pa y for the very basics like food, housing, medical care, and heating? Patient unable to answer 03/12/2025 Transportation Answer Date Recorded In the past 12 months, has l ack of transportation kept you from medical appointments or from getting medications? Patient unable to answer 03/12/2025 Lack of Transportation (Non-Medical) Not on file 03/12/2025 Housing Stability Vital Sign Answer Elmer e Recorded In the last 12 months, was t here a time when you were not able to pay the mortgage or rent on time? Patient unable to answer 03/12/2025 Number of Times Moved in the Last Year Not on fi le 03/12/2025 At any time in the past 12 m [facility], were you homeless or living in a skilled nursing (including now)? Patient unable to answer 03/12/2025 Hunger Vital Sign Answer Date Recorded Within the past 12 months, y ou worried that your food would run out before you got the money to buy more. Patient unable to answer 03/12/2025 Ran Out of Food in the Last Year Not on file 03/12/2025 Comments Unknown Sex and Gender Information Value Date Recorded Sex Assigned at Female 05/07/2025 2:31 PM EDT Legal Sex Female 12:41 AM EDT Gender Identity Female 05/07/2025 2:31 PM EDT Sexual Orientation Heterosexual or Straight 06/2025 2:31 PM EDT Last Filed Vital Signs Vital Sign Reading Time Taken Comments Blood Pressure 107/62 03/26/2025 3:04 PM EDT Pulse 79 03/26/2025 3:04 PM EDT Temperature 36.6 C (97.9 F) 03/20/2025 11:45 AM EDT Respiratory Rate 25 03/20/2025 11:45 AM EDT Oxygen Saturation 92% 03/26/2025 3:04 PM EDT Inhaled Oxygen Concentration - - Weight 70.8 kg (156 lb) 03/26/2025 3:04 PM EDT Height 165.1 cm (5' 5 ) 03/26/2025 3:04 PM EDT Body Mass Index 25.96 03/26/2025 3:04 PM EDT Plan of Treatment Upcoming Encounters Date Type Department Care Team (Late st Contact Info) Description 05/19/2025 10:30 AM EDT Office Visit [facility] Heart at [facility] [address] [place] [address] Doug Stern MD [address] [facility] [place] [id number] 05/19/2025 3:30 PM EDT Consult [facility] [address] [place] [id number] Brandt Helton MD [address] [place] [address] Health Maintenance Due Date Last Done Comments Medicare Annual Wellness (AWV) 1945 Depression Screening 1958 Adult Tetanus 1968 Zoster Vaccines (1 of 2) 1996 COVID-19 Vaccine ( season) 2024 10/25/2021, 03/25/2021, 03/01/2021 Influenza Vaccine (#1) 2025 10/08/2016 Fall Risk Screening 03/20/2026 03/20/2025 Pneumococcal Vaccine: 50+ Years Completed 10/25/2019, 10/06/2016, 04/09/2015, Additional history exists HIB Vaccines Aged Out No longer eligi ble based on patient's age to complete this topic HPV Vaccines Aged Out No longer eligi ble based on patient's age to complete this topic IPV Vaccines Aged Out No longer eligi ble based on patient's age to complete this topic Meningococcal B Vaccine Aged Out No l onger eligible based on patient's age to complete this topic Meningococcal Vaccine Aged Out No ace sydney eligible based on patient's age to complete this topic Rotavirus Vaccines Aged Out No longer eligible based on patient's age to complete this topic Medical Devices Implanted Type Area Mental Health Case Manager Device Identifier Shelf Expiration Date Model / Serial / Lot Stent,Synergy Mr 2.25 X 38 - [id number] Implanted:Qty : 1 on 03/14/2025 by Doug Stern MD at [facility] Drug Eluting Stent N/A: Heart [employer] [id number] 01/16/2026 [id number] / / [id number] Stent,Synergy Mr 2.50 X 16 - [id number] Implanted:Qty : 1 on 03/14/2025 by Doug Stern MD at [facility] Drug Eluting Stent N/A: Heart [employer] [id number] 11/27/2026 [id number] / / [id number] Stent,Synergy Xd Mr 2.5 X48mm - [id number] Implanted:Qty : 1 on 03/14/2025 by Doug Stern MD at [facility] Drug Eluting Stent N/A: Heart [employer] [id number] 09/24/2026 [id number] / / [id number] Procedures Procedure Name Priority Date/Time Associated Diagnosis Comments CBC WITH AUTO DIFFERENTIAL Pending Discharge 03/20/2025 8:15 AM EDT MAGNESIUM Pending Discharge 03/20/2025 8:15 AM EDT BASIC METABOLIC PANEL Pending Discharge 03/20/2025 8:15 AM EDT CBC AND DIFFERENTIAL Routine 03/20/2025 8:15 AM EDT RESPIRATORY ASSESS AND TREAT PROTOCOL Routine 03/19/2025 8:00 AM EDT CBC WITH AUTO DIFFERENTIAL Pending Discharge 03/19/2025 5:20 AM EDT B-TYPE NATRIURETIC PEPTIDE Pending Discharge 03/19/2025 5:20 AM EDT MAGNESIUM Pending Discharge 03/19/2025 5:20 AM EDT BASIC METABOLIC PANEL Pending Discharge 03/19/2025 5:20 AM EDT CBC AND DIFFERENTIAL Routine 03/19/2025 5:20 AM EDT RESPIRATORY ASSESS AND TREAT PROTOCOL Routine 03/18/2025 8:00 AM EDT CBC WITH AUTO DIFFERENTIAL Pending Discharge 03/18/2025 5:05 AM EDT MAGNESIUM Pending Discharge 03/18/2025 5:05 AM EDT BASIC METABOLIC PANEL Pending Discharge 03/18/2025 5:05 AM EDT CBC AND DIFFERENTIAL Routine 03/18/2025 5:05 AM EDT RESPIRATORY ASSESS AND TREAT PROTOCOL Routine 03/17/2025 8:00 AM EDT CBC WITH AUTO DIFFERENTIAL Pending Discharge 03/17/2025 5:02 AM EDT CBC AND DIFFERENTIAL Routine 03/17/2025 5:02 AM EDT BASIC METABOLIC PANEL Pending Discharge 03/17/2025 5:02 AM EDT CBC WITH AUTO DIFFERENTIAL Routine 03/16/2025 12:14 PM EDT HIGH SENSITIVITY TROPONIN I Routine 03/16/2025 12:14 PM EDT BASIC METABOLIC PANEL Routine 03/16/2025 12:14 PM EDT CBC AND DIFFERENTIAL Routine 03/16/2025 12:14 PM EDT XR CHEST 1 VIEW Routine 03/16/2025 10:[address] HEAD WO IV CONTRAST Routine 9:51 AM EDT ECG 12-LEAD Routine 03/16/2025 9:26 AM EDT RESPIRATORY ASSESS AND TREAT PROTOCOL Routine 03/16/2025 8:00 AM EDT RESPIRATORY ASSESS AND TREAT PROTOCOL Routine 03/15/2025 8:00 AM EDT HIGH SENSITIVITY TROPONIN I Add-On 03/15/2025 3:54 AM EDT T4, FREE Routine 03/15/2025 3:54 AM EDT TSH3 REFLEX TO FT4 Add-On 03/15/2025 3: 54 AM EDT CBC WITH AUTO DIFFERENTIAL Routine 03/15/2025 3:54 AM EDT PHOSPHORUS Routine 03/15/2025 3:54 AM EDT MAGNESIUM Routine 03/15/2025 3:54 AM EDT COMPREHENSIVE METABOLIC PANEL Routine 03/15/2025 3:54 AM EDT CBC AND DIFFERENTIAL Routine 03/15/2025 3:54 AM EDT ANTI-FACTOR XA Timed 03/15/2025 3:54 AM EDT XR CHEST 1 VIEW STAT 03/15/2025 12:55 AM EDT LACTIC ACID WITH 4 HOUR REFLEX Timed 03/14/2025 8:54 PM EDT ECG 12-LEAD Today 03/14/2025 6:15 PM EDT PERC CORONARY INTERVENTION Routine 03/14/2025 5:14 PM EDT Acute combined systolic and diastolic heart failure (CMS/HCC) NSTEMI (non-ST elevated myocardial infarction) (CMS/HCC) RIGHT HEART CATH Routine 03/14/2025 5:14 PM EDT Acute combined systolic and diastolic heart failure (CMS/HCC) NSTEMI (non-ST elevated myocardial infarction) (CMS/HCC) CORONARY ANGIOGRAPHY Routine 03/14/2025 5:14 PM EDT Acute combined systolic and diastolic heart failure (CMS/HCC) NSTEMI (non-ST elevated myocardial infarction) (CMS/HCC) POCT ACT Routine 03/14/2025 5:02 PM EDT POCT ACT Routine 03/14/2025 4:45 PM EDT POCT ACT Routine 03/14/2025 4:20 PM EDT POCT ACT Routine 03/14/2025 3:56 PM EDT LACTIC ACID WITH 4 HOUR REFLEX Timed 03/14/2025 12:39 PM EDT ANTI-FACTOR XA Timed 03/14/2025 8:02 AM EDT LACTIC ACID WITH 4 HOUR REFLEX Timed 03/14/2025 8:02 AM EDT RESPIRATORY ASSESS AND TREAT PROTOCOL Routine 03/14/2025 8:00 AM EDT ANTI-FACTOR XA Timed 03/14/2025 4:27 AM EDT LIPID PANEL Add-On 03/14/2025 4:26 AM EDT CBC WITH AUTO DIFFERENTIAL Routine 03/14/2025 4:26 AM EDT PHOSPHORUS Routine 03/14/2025 4:26 AM EDT MAGNESIUM Routine 03/14/2025 4:26 AM EDT COMPREHENSIVE METABOLIC PANEL Routine 03/14/2025 4:26 AM EDT CBC AND DIFFERENTIAL Routine 03/14/2025 4:26 AM EDT XR CHEST 1 VIEW STAT 03/14/2025 12:29 AM EDT ANTI-FACTOR XA Timed 03/13/2025 9:43 PM EDT LACTIC ACID WITH 4 HOUR REFLEX Timed 03/13/2025 9:43 PM EDT APTT STAT 03/13/2025 9:43 PM EDT LACTIC ACID WITH 4 HOUR REFLEX Timed 03/13/2025 5:07 PM EDT LIMITED ECHO (TTE) W/ STRAIN Routine 03/13/2025 1:18 PM EDT LACTIC ACID WITH 4 HOUR REFLEX Timed 03/13/2025 12:40 PM EDT EXTUBATION Routine 03/13/2025 10:02 AM EDT LAVENDER TOP Routine 03/13/2025 8:05 AM EDT LIGHT GREEN TOP Routine 03/13/2025 8:05 AM EDT EXTRA TUBES Routine 03/13/2025 8:05 AM EDT LACTIC ACID WITH 4 HOUR REFLEX Timed 03/13/2025 8:05 AM EDT RESPIRATORY ASSESS AND TREAT PROTOCOL Routine 03/13/2025 8:00 AM EDT POCT GLUCOSE METER UNSOLICITED RESULTS Routine 03/13/2025 6:12 AM EDT ARTERIAL BLOOD GAS WITH IONIZED CALCIUM Timed 03/13/2025 4:53 AM EDT CBC WITH AUTO DIFFERENTIAL Routine 03/13/2025 4:02 AM EDT PHOSPHORUS Routine 03/13/2025 4:02 AM EDT HIGH SENSITIVITY TROPONIN I Timed 03/13/2025 4:02 AM EDT MAGNESIUM Routine 03/13/2025 4:02 AM EDT COMPREHENSIVE METABOLIC PANEL Routine 03/13/2025 4:02 AM EDT CBC AND DIFFERENTIAL Routine 03/13/2025 4:02 AM EDT LACTIC ACID WITH 4 HOUR REFLEX Timed 03/13/2025 4:02 AM EDT POCT GLUCOSE METER UNSOLICITED RESULTS Routine 03/12/2025 11:56 PM EDT HIGH SENSITIVITY TROPONIN I Timed 03/12/2025 11:05 PM EDT LACTIC ACID WITH 4 HOUR REFLEX Timed 03/12/2025 11:05 PM EDT CBC WITH AUTO DIFFERENTIAL Routine 03/12/2025 8:11 PM EDT CBC AND DIFFERENTIAL Routine 03/12/2025 8:11 PM EDT HIGH SENSITIVITY TROPONIN I Routine 03/12/2025 8:11 PM EDT PHOSPHORUS STAT 03/12/2025 8:11 PM EDT MAGNESIUM STAT 03/12/2025 8:11 PM EDT BASIC METABOLIC PANEL STAT 03/12/2025 8:11 PM EDT LACTIC ACID WITH 4 HOUR REFLEX Timed 03/12/2025 8:11 PM EDT HYPERSENSITIVITY PNUEMONITIS PANEL 1 Routine 03/12/2025 8:11 PM EDT HYPERSENSITIVITY PNEUMONITIS PANEL 2 Routine 03/12/2025 8:11 PM EDT IMMUNOGLOBULIN E Routine 03/12/2025 8:11 PM EDT PATHOLOGY REVIEW Routine 03/12/2025 6:34 PM EDT BODY FLUID CELL DIFFERENTIAL Routine 03/12/2025 6:34 PM EDT BODY FLUID CELL COUNT WITH DIFFERENTIAL Routine 03/12/2025 6:34 PM EDT BODY FLUID CELL COUNT WITH DIFFERENTIAL Routine 03/12/2025 6:34 PM EDT RESPIRATORY CULTURE Routine 03/12/2025 6 :34 PM EDT POCT GLUCOSE METER UNSOLICITED RESULTS Routine 03/12/2025 5:59 PM EDT HIGH SENSITIVITY TROPONIN I Timed 03/12/2025 5:40 PM EDT LACTIC ACID WITH 4 HOUR REFLEX Timed 03/12/2025 5:[address] CHEST W IV CONTRAST Routine 5:12 PM EDT LACTIC ACID WITH 4 HOUR REFLEX Timed 03/12/2025 3:45 PM EDT ECG 12-LEAD Routine 03/12/2025 2:10 PM EDT POCT GLUCOSE METER UNSOLICITED RESULTS Routine 03/12/2025 12:26 PM EDT LACTIC ACID WITH 4 HOUR REFLEX Timed 03/12/2025 12:14 PM EDT COMPLETE ECHO (TTE) W/ IMAGING AGENT Routine 03/12/2025 11:24 AM EDT LACTIC ACID WITH 4 HOUR REFLEX Timed 03/12/2025 11:00 AM EDT HIGH SENSITIVITY TROPONIN I Timed 03/12/2025 11:[address] CHEST WO IV CONTRAST Routine 03/12/20 10:19 AM EDT RESPIRATORY VIRUS PCR PANEL Routine 03/12/2025 9:49 AM EDT BLOOD CULTURE Routine 03/12/2025 8:20 AM EDT BLOOD CULTURE Routine 03/12/2025 8:20 AM EDT RESPIRATORY ASSESS AND TREAT PROTOCOL Routine 03/12/2025 8:00 AM EDT RESPIRATORY ASSESS AND TREAT PROTOCOL Routine 03/12/2025 8:00 AM EDT RESPIRATORY ASSESS AND TREAT PROTOCOL Routine 03/12/2025 7:51 AM EDT SARS-COV-2 PCR Routine 03/12/2025 7:49 AM EDT LACTIC ACID WITH 4 HOUR REFLEX Timed 03/12/2025 7:25 AM EDT RAPID INFLUENZA A/B PCR Routine 03/12/20 6:34 AM EDT MRSA/MSSA DNA NASAL Routine 03/12/2025 6 :34 AM EDT URINALYSIS WITH MICROSCOPIC Add-On 03/12/2025 6:30 AM EDT LEGIONELLA ANTIGEN, URINE Routine 03/12/2025 6:30 AM EDT STREP PNEUMONIAE ANTIGEN, URINE Routine 03/12/2025 6:30 AM EDT TRIGLYCERIDES Timed 03/12/2025 6:12 AM EDT PROCALCITONIN TEST Routine 03/12/2025 6: 12 AM EDT PHOSPHORUS STAT 03/12/2025 6:12 AM EDT MAGNESIUM STAT 03/12/2025 6:12 AM EDT COMPREHENSIVE METABOLIC PANEL STAT 03/12/2025 6:12 AM EDT CBC WITH AUTO DIFFERENTIAL STAT 03/12/2025 6:11 AM EDT B-TYPE NATRIURETIC PEPTIDE STAT 03/12/2025 6:11 AM EDT CBC AND DIFFERENTIAL STAT 03/12/2025 6:11 AM EDT RESPIRATORY ASSESS AND TREAT PROTOCOL Routine 03/12/2025 5:25 AM EDT ARTERIAL BLOOD GAS WITH IONIZED CALCIUM Timed 03/12/2025 5:25 AM EDT XR CHEST 2 VIEWS Routine 03/11/2025 5:12 PM EDT ECG 12-LEAD Routine 03/11/2025 5:10 PM EDT from Last 3 Months Results * (ABNORMAL) CBC auto differential (03/20/2025 8:15 AM EDT) Only the most recent of10 resultswithin the time period is included. Auto WBC 6.34 4.00 - 10.60 10*3/uL 03/20/2025 8:58 AM EDT [facility] ([facility]) RBC 3.68(L) 3.80 - 5.00 10*6/uL 03/20/2025 8:58 AM EDT [facility] ([facility]) Hemoglobin 11.3(L) 12.0 - 15.0 g/dL 03/20/2025 8:58 AM EDT [facility] ([facility]) Hematocrit 34.5(L) 36.0 - 45.0 % 03/20/2025 8:58 AM EDT [facility] ([facility]) MCV 93.8 82.0 - 98.0 fL 03/20/2025 8:58 AM EDT [facility] ([facility]) MCH 30.7 27.0 - 33.0 pg 03/20/2025 8:58 AM EDT [facility] ([facility]) MCHC 32.8 32.0 - 35.0 g/dL 03/20/2025 8:58 AM EDT [facility] ([facility]) RDW 13.3 11.5 - 15.0 % 03/20/2025 8:58 AM EDT [facility] ([facility]) Neutrophils % 73.7(H) 40.0 - 72.0 % 03/20/2025 8:58 AM EDT [facility] ([facility]) Lymphocytes % 11.2(L) 20.0 - 45.0 % 03/20/2025 8:58 AM T [facility] ([facility]) Monocytes % 10.4 5.0 - 12.0 % 03/20/2025 8:58 AM T [facility] ([facility]) Eosinophils % 3.8 0.0 - 6.0 % 03/20/2025 8:58 AM [facility] ([facility]) Basophils % 0.0 0.0 - 1.0 % 03/20/2025 8:58 AM T [facility] ([facility]) Neutrophils Absolute 4.67 1.60 - 7.60 10*3/uL 03/20/2025 8:58 AM T [facility] ([facility]) Lymphocytes Absolute 0.71(L) 1.20 - 4.00 10*3/uL 03/20/2025 8:58 AM [facility] ([facility]) Monocytes Absolute 0.66 0.10 - 1.00 10*3/uL 03/20/2025 8:58 AM EDT [facility] ([facility]) Eosinophils Absolute 0.24 0.00 - 0.50 10*3/uL 03/20/2025 8:58 AM T [facility] ([facility]) Basophils Absolute 0.00 0.00 - 0.20 10*3/uL 03/20/2025 8:58 AM [facility] ([facility]) Platelets 221 150 - 400 10*3/uL 03/20/2025 8:58 AM [facility] ([facility]) nRBC % 0.0 0 % 03/20/2025 8:58 AM EDT [facility] ([facility]) Immature Granulocytes % 0.9 0.0 - 1.0 % 03/20/2025 8:58 AM EDT [facility] ([facility]) Immature Granulocytes Absolute 0.06 0.00 - 0.20 10*3/uL 03/20/2025 8:58 AM EDT [facility] ([facility]) Blood Venous blood specimen / Unknown Venipuncture / Unknown 03/20/2025 8:15 AM EDT 03/20/2025 8:28 AM EDT [facility] LAB BLOOD ORDERABLES Final Resu lt Performing Organization Address City/[facility]/ZIP Co de Phone Number [facility]) [address] [place] [phone] * Magnesium (03/20/2025 8:15 AM EDT) Only the most recent of8 resultswithin the time period is included. Magnesium 2.0 1.9 - 2.7 mg/dL 03/20/2025 8:50 AM EDT [facility] ([facility]) Blood Venous blood specimen / Unknown Venipuncture / Unknown 03/20/2025 8:15 AM EDT 03/20/2025 8:28 AM EDT [facility] LAB BLOOD ORDERABLES Final Resu lt Performing Organization Address City/[facility]/ZIP Co de Phone Number [facility]) [address] [place] [address] * (ABNORMAL) Basic metabolic panel (03/20/2025 8:15 AM EDT) Only the most recent of6 resultswithin the time period is included. Sodium 138 136 - 145 mmol/L 03/20/2025 8:50 AM EDT [facility]) Potassium 3.8 3.5 - 5.1 mmol/L 03/20/2025 8:50 AM EDT [facility] ([facility]) Chloride 106 98 - 107 mmol/L 03/20/2025 8:50 AM EDT [facility] ([facility]) CO2 29 21 - 31 mmol/L 03/20/2025 8:50 AM EDT [facility] ([facility]) BUN 19 7 - 25 mg/dL 03/20/2025 8:50 AM EDT [facility] ([facility]) Creatinine 0.90 0.60 - 1.20 mg/dL 03/20/2025 8:50 AM EDT [facility] ([facility]) Glucose 90 70 - 100 mg/dL 03/20/2025 8:50 AM EDT [facility] ([facility]) Calcium 8.5(L) 8.6 - 10.3 mg/dL 03/20/2025 8:50 AM EDT [facility] ([facility]) Anion Gap 7 7 - 20 mmol/L 03/20/2025 8:50 AM T [facility] ([facility]) eGFR 65.4 >60.0 mL/min/1. 73m*2 03/20/2025 8:50 AM EDT [facility] ([facility]) Comment:The [facility] s estimated glomerular filtration rate (eGFR) will no longer include consideration of race in its calculation. The [employer] s eGFR Task Force developed new recommendations for the estimation of the glomerular filtration rate in the [place] They recommend immediate implementation of the new equation refit without the race variable in all laboratories because the calculation does not include race. In addition to not including race in the calculation and reporting, it included diversity in its development, and has acceptable performance characteristics and potential consequences that do not disproportionately affect any one group of individuals. BUN/Creatinine Ratio 21.1 02/28 8:50 AM EDT [facility] ([facility]) Blood Venous blood specimen / Unknown Venipuncture / Unknown 03/20/2025 8:15 AM EDT 03/20/2025 8:28 AM EDT us Juli Chapin [facility] LAB BLOOD ORDERABLES Final Resu lt [facility] ([facility]) [address] [place] [address] * (ABNORMAL) B-type natriuretic peptide (03/19/2025 5:20 AM EDT) Only the most recent of2 resultswithin the time period is included. BNP 230(H) 0 - 100 pg/mL 03/19/2025 6:10 AM EDT [facility]) Blood Venous blood specimen / Unknown Venipuncture / Unknown 03/19/2025 5:20 AM EDT 03/19/2025 5:42 AM EDT Abraham Shaffer [employer] LAB BLOOD ORDERABLES Final Resul t Performing Organization Address City/[facility] Co de Phone Number [facility]) [address], [place] [id number] * (ABNORMAL) High Sensitivity Troponin I (03/16/2025 12:14 PM EDT) Only the most recent of7 resultswithin the time period is included. High Sensitivity Troponin I 2,801(HH) <15 ng/L 03/16/2025 1:20 PM EDT [facility]) Blood Venous blood specimen / Unknown Venipuncture / Unknown 03/16/2025 12:14 PM EDT 03/16/2025 12:27 PM EDT us Ady Mclaughlin MD LAB BLOOD ORDERABLES Final Re sult Performing Organization Address City/[facility]/ZIP Co de Phone Number [facility]) [address] [place] [address] * XR chest 1 view (03/16/2025 10:06 AM EDT) Only the most recent of3 resultswithin the time period is included. Anatomical Region Laterality Modality Chest Computed Radiogr aphy 03/16/2025 10:3 3 AM EDT Impressions 03/16/2025 10:34 AM EDT Continued abnormal chest concerning for multifocal pneumonia. ARDS and/or pulmonary edema could have a similar appearance. Electronically signed: Mello Etienne Narrative 03/16/2025 10:34 AM EDT XR CHEST 1 VIEW 03/16/2025 9:20 AM CLINICAL INDICATIONS: Worsening hypoxia COMPARISON: 03/15/2025 FINDINGS: Heart size prominent. Bilateral pulmonary infiltrates. No volume loss or consolidation. No pneumothorax. Degenerative changes thoracic spine. Procedure Note Mello Haynes MD - 03/16/2025 XR CHEST 1 VIEW 03/16/2025 9:20 AM CLINICAL INDICATIONS: Worsening hypoxia COMPARISON: 03/15/2025 FINDINGS: Heart size prominent. Bilateral pulmonary infiltrates. No volume loss or consolidation. No pneumothorax. Degenerative changes thoracic spine. IMPRESSION: Continued abnormal chest concerning for multifocal pneumonia. ARDSand/or pulmonary edema could have a similar appearance. Electronically signed: Mello Haynes. us Ady Mclaughlin MD IMG XR PROCEDURES Final Resul t * CT head wo IV contrast (03/16/2025 9:51 AM EDT) Anatomical Region Laterality Modality Head, Neck Computed Tomogra phy 03/16/2025 9:57 AM EDT Impressions 03/16/2025 10:00 AM EDT Impression: * Advanced chronic microvascular ischemia. * Enlarged ventricles. Concerning for normal pressure hydrocephalus. If this is of concern consider follow-up nuclear medicine cisternogram. * Electronically signed: Mello Haynes. Narrative 03/16/2025 10:00 AM EDT Clinical History and Information: Fall injury pain Findings: Contrast: None Multidetector helical CT was performed of the brain. Axial sagittal coronal images were reviewed. Automated exposure control was utilized. All CT scans at this facility use dose modulation, iterative reconstruction, and/or weight based dosing when appropriate to reduce radiation dose to as low as reasonably achievable. Comparison:None Chronic microvascular ischemic changes involving the periventricular white matter. No acute hemorrhage or edema. The ventricles are prominent size. No midline shift nor mass effect. Procedure Note Mello Haynes MD - 03/16/2025 Clinical History and Information: Fall injury pain Findings: Contrast: None Multidetector helical CT was performed of the brain. Axial sagittalcoronal images were reviewed. Automated exposure control was utilized. All CTscans at this facility use dose modulation, iterative reconstruction, and/or weightbased dosing when appropriate to reduce radiation dose to as low as reasonably achievable. Comparison:None Chronic microvascular ischemic changes involving the periventricularwhite matter. No acute hemorrhage or edema. The ventricles are prominent size.No midline shift nor mass effect. IMPRESSION: Impression: *Advanced chronic microvascular ischemia. *Enlarged ventricles. Concerning for normal pressure hydrocephalus. Ifthis is of concern consider follow-up nuclear medicine cisternogram. * Electronically signed: Mello Haynes. Ady Mclaughlin MD IMG CT PROCEDURES Final Resul t * ECG 12 lead (03/16/2025 9:26 AM EDT) Only the most recent of4 resultswithin the time period is included. Ventricular Rate 92 BPM GE MUSE Atrial Rate [address] Interval 154 ms GE MUSE QRS DURATION 88 ms GE MUSE QT Interval 364 ms GE MUSE QTC CALCULATION(BAZE TT) 450 ms GE MUSE P [place] 58 degrees GE MUSE R-[place] 56 degrees GE MUSE T Wave [place] 90 degrees GE MUSE 03/16/2025 9:10 AM EDT 03/16/2025 9:50 AM EDT Impressions GE MUSE - 03/16/2025 9:50 AM EDT Normal sinus rhythm with sinus arrhythmia Nonspecific ST and T wave abnormality Abnormal ECG When compared with ECG of 14-MAR-2025 17:58, Premature atrial complexes are no longer Present Vent. rate has increased BY 31 BPM QT has shortened Confirmed by Doug Stern ([id number]) on 03/16/2025 9:50:11 AM Narrative Procedure Note Doug Stern MD - 03/16/2025 IMPRESSION: Normal sinus rhythm with sinus arrhythmia Nonspecific ST and T wave abnormality Abnormal ECG When compared with ECG of 14-MAR-2025 17:58, Premature atrial complexes are no longer Present Vent. rate has increased BY 31 BPM QT has shortened Confirmed by Doug Stern ([id number]) on 03/16/2025 9:50:11 AM Ady Mclaughlin MD ECG ORDERABLES Final Result GE MUSE * TSH3 Reflex to FT4 (03/15/2025 3:54 AM EDT) TSH 0.34 0.34 - 5.60 mIU/L 03/15/2025 2:03 PM EDT [facility] ([facility]) Blood Venous blood specimen / Unknown Venipuncture / Unknown 03/15/2025 3:54 AM EDT 03/15/2025 4:12 AM EDT Ady Mclaughlin MD LAB BLOOD ORDERABLES Final Re sult Performing Organization Address City/[facility] Co de Phone Number [facility]) [address], [place] [phone] * (ABNORMAL) Anti-Xa (Heparin Level) (03/15/2025 3:54 AM EDT) Only the most recent of4 resultswithin the time period is included. Pathologist [facility] Anti-Xa (Heparin) <0.10(LL) 0.3 - 0.7 IU/mL 03/15/2025 4:50 AM EDT [facility] ([facility]) Comment:Rivaroxaban and Apix aban will interfere with the anti Xa assay used to monitor UFH and LMWH. Blood Venous blood specimen / Unknown Venipuncture / Unknown 03/15/2025 3:54 AM EDT 03/15/2025 4:04 AM EDT Linda Davis MD LAB BLOOD ORDERABLES Final Result Performing Organization Address City/[facility]/ZIP Co de Phone Number [facility] ([facility]) [address] [place] [address] * T4, free (03/15/2025 3:54 AM EDT) Free T4 0.86 0.71 - 1.85 ng/dL 03/15/2025 2:39 PM EDT [facility] ([facility]) Blood Venous blood specimen / Unknown Venipuncture / Unknown 03/15/2025 3:54 AM EDT 03/15/2025 4:12 AM EDT us Ady Mclaughlin MD LAB BLOOD ORDERABLES Final Re sult Performing Organization Address City/[facility]/ZIP Co de Phone Number [facility]) [address] [place] [address] * Phosphorus (03/15/2025 3:54 AM EDT) Only the most recent of5 resultswithin the time period is included. Phosphorus 3.1 2.5 - 5.0 mg/dL 03/15/2025 4:39 AM EDT [facility] ([facility]) Blood Venous blood specimen / Unknown Venipuncture / Unknown 03/15/2025 3:54 AM EDT 03/15/2025 4:12 AM EDT Kaylene Vaz MD LAB BLOOD ORDERABLES Final Res ult Performing Organization Address [facility] Co de Phone Number [facility] ([facility]) [address] [place] [address] * (ABNORMAL) Comprehensive metabolic panel (03/15/2025 3:54 AM EDT) Only the most recent of4 resultswithin the time period is included. Sodium 143 136 - 145 mmol/L 03/15/2025 4:39 AM EDT [facility] ([facility]) Potassium 3.8 3.5 - 5.1 mmol/L 03/15/2025 4:39 AM EDT [facility] ([facility]) Chloride 106 98 - 107 mmol/L 03/15/2025 4:39 AM EDT [facility] ([facility]) CO2 30 21 - 31 mmol/L 03/15/2025 4:39 AM EDT [facility] ([facility]) Anion Gap 11 7 - 20 mmol/L 03/15/2025 4:39 AM EDT [facility] ([facility]) BUN 34(H) 7 - 25 mg/dL 03/15/2025 4:39 AM EDT [facility] ([facility]) Creatinine 0.88 0.60 - 1.20 mg/dL 03/15/2025 4:39 AM [facility] ([facility]) BUN/Creatinine Ratio 38.6 02/27 4:39 AM [facility] ([facility]) Glucose 127(H) 70 - 100 mg/dL 03/15/2025 4:39 AM [facility] ([facility]) Calcium 8.9 8.6 - 10.3 mg/dL 03/15/2025 4:39 AM [facility] ([facility]) AST 25 13 - 39 U/L 03/15/2025 4:39 AM [facility] ([facility]) ALT (SGPT) 13 7 - 52 U/L 03/15/2025 4:39 AM [facility] ([facility]) Alkaline Phosphatase 37 34 - 104 U/L 03/15/2025 4:39 AM [facility] ([facility]) Total Protein 5.7(L) 6.0 - 8.3 g/dL 03/15/2025 4:39 AM [facility] ([facility]) Albumin 3.6 3.5 - 5.7 g/dL 03/15/2025 4:39 AM [facility] ([facility]) Total Bilirubin 0.7 0.3 - 1.0 mg/dL 03/15/2025 4:39 AM [facility] ([facility]) eGFR 67.2 >60.0 mL/min/1. 73m*2 03/15/2025 4:39 AM [facility] ([facility]) Comment:The [facility] s estimated glomerular filtration rate (eGFR) will no longer include consideration of race in its calculation. The [employer] s eGFR Task Force developed new recommendations for the estimation of the glomerular filtration rate in the [place] They recommend immediate implementation of the new equation refit without the race variable in all laboratories because the calculation does not include race. In addition to not including race in the calculation and reporting, it included diversity in its development, and has acceptable performance characteristics and potential consequences that do not disproportionately affect any one group of individuals. Blood Venous blood specimen / Unknown Venipuncture / Unknown 03/15/2025 3:54 AM EDT 03/15/2025 4:12 AM EDT Kaylene Vaz MD LAB BLOOD ORDERABLES Final Res ult Performing Organization Address City/[facility]/ZIP Co de Phone Number [facility] ([facility]) [address] [place] [address] * Lactic acid with 4 hour reflex (03/14/2025 8:54 PM EDT) Only the most recent of15 resultswithin the time period is included. Lactate 1.9 0.5 - 2.2 mmol/L 03/14/2025 10:02 PM EDT [facility] ([facility]) Blood Venous blood specimen / Unknown Venipuncture / Unknown 03/14/2025 8:54 PM EDT 03/14/2025 9:13 PM EDT Kaylene Vaz MD LAB BLOOD ORDERABLES Final Res ult Performing Organization Address [facility] Co de Phone Number [facility] ([facility]) [address] [place] [address] * CORONARY ANGIOGRAPHY, RIGHT HEART CATH, PERC CORONARY INTERVENTION (03/14/2025 5:14 PM EDT) Anatomical Region Laterality Modality Other Narrative 03/14/2025 7:37 PM EDT PROCEDURE PHYSICIAN: Doug Stern MD . Indications: Pilo Ugarte is a 79 y.o. female who was admitted with acute hypoxic respiratory failure and was found to have EKG changes and elevation in cardiac enzymes consistent with acute myocardial infarction. In addition she was found to have pneumonia. She was found to have acute systolic heart failure and LV ejection fraction of 35%. She was stabilized. She was referred for cardiac catheterization. Assistants: Dr Jayy Dee. Procedure Performed: Bilateral selective coronary angiogram. Right heart catheterization. Successful balloon angioplasty and drug eluting stenting of 90% stenosis in the proximal to mid circumflex coronary artery, with reduction of the stenosis to 0% by two overlapping Synergy XD 2.5 x 16 mm and 2.25 x 38 mm drug eluting stents, post-dilated to 2.5 mm at high pressures. Successful wire crossing, balloon angioplasty and drug eluting stenting of 100% thrombotic occlusion in the mid right coronary artery, with reduction of the occlusion to 0% by a Synergy XD 2.5 x 48 mm drug eluting stent, post-dilated to 3.5 mm at high pressures. Administration of intracoronary nitroglycerin. Access into the right internal jugular vein under ultrasound guidance. Access into the left radial artery under ultrasound guidance. Methods: Procedure was explained to the patient with risks and benefits; she signed informed consent. she was brought to the rn cardiac cath in a fasting state. The right neck area was prepped and draped in usual fashion. Micropuncture technique was used for access under ultrasound guidance into the right internal jugular vein. A 6-Yemeni x 11 cm sheath was placed. A 6-Yemeni Chavez catheter was used for right heart catheterization and measurement of pressures and calculation of cardiac output using the estimated Miki method. Chavez catheter was removed. The left wrist area was prepped and draped in usual fashion. Micropuncture technique was used for access in the left radial artery. A 6-Yemeni x 11 cm sheath was placed. Verapamil was given through the sheath, and heparin was administered intravenously. Initial advancement of the wire proved difficult in the proximal radial artery. Therefore radial angiography was performed showing significant tortuosity's in the radial artery. This was crossed using a coronary Prowater wire and a 5 Yemeni straight tapered glide catheter was advanced to the brachial artery. This allows advancement of a Daniel wire to the ascending aorta and therefore advancement of diagnostic catheters. Bilateral selective coronary angiography was then performed using 6-Yemeni JL4 and JR4 diagnostic catheters. Catheters were removed. Heparin was administered intravenously and therapeutic ACT was confirmed during the rest of the procedure. A 6-Yemeni XB 3.0 guiding catheter was advanced and used to engage the left coronary ostium. Baseline MIHIR flow was 3. A Prowater coronary guide wire was advanced to the distal circumflex coronary artery. A NC 2.5 x 20 mm non-compliant balloon was advanced and used to performed balloon angioplasty at the site of the proximal to mid circufmlex stenosis with inflations up to 12 Mauricio. The balloon was retracted. Angiography was performed. A Synergy XD 2.25 x 38 mm drug-eluting stent was advanced and deployed at 11 Mauricio across the stenosis. Another Synergy XD 2.5 x 16 mm drug-eluting stent was advanced and deployed in the ostial to proximal circumflex at 11 mauricio. The stents were postdilated using NC Emerge 2.5 x 20 mm noncompliant balloon inflated up to 22 mauricio throughout the length of the stented segments. Intracoronary nitroglycerin was administered followed by angiography which revealed excellent result with reduction of the stenosis to 0%, no evidence of dissection or perforation and MIHIR 3 flow in the coronary artery and branches. The guiding catheter and wire were removed. A 6-Yemeni IM guiding catheter was advanced and used to engage the right coronary ostium. Baseline MIHIR flow was 0. A Prowater coronary guidewire was advanced however could not cross the occlusion in the mid segment of the RCA. This was exchanged to a Fielder wire mounted on a fine cross catheter. After multiple attempts the Fielder wire was able to cross the occlusion and advanced into the distal right coronary artery. Using multiple angiographic views we were confident of the true lumen position of the wire. The fine cross catheter was advanced and the wire was retracted. Angiography through the fine cross catheter was performed confirming intraluminal position. An exchange length Prowater wire was advanced into the distal right-sided PDA. The fine cross catheter was retracted. Balloon dilatation was then performed in the proximal to mid RCA using NC Emerge 2.0 x 20 mm noncompliant balloon inflated at 12 mauricio throughout the occluded segment. Angiography was performed. Intracoronary nitroglycerin was administered. Additional dilatation using the same balloon were performed at the same locations up to 18 mauricio. Angiography after intracoronary nitroglycerin was administered. A Synergy XD 2.5 x 48 mm drug-eluting stent was advanced and deployed in the proximal to mid RCA. Initially this was deployed at 11 mauricio. This was then inflated at 15 mauricio to a 2.7 mm deployment size. The stent was then postdilated using NC Emerge 3.0 x 20 mm noncompliant balloon inflated at 22 mauricio throughout the length of the stented segment. Additional postdilatation after angiography was performed using NC Emerge 3.5 x 20 mm noncompliant balloon inflated up to 22 mauricio throughout the length of the stented segment. Intracoronary nitroglycerin was administered followed by angiography which showed excellent result with reduction of the occlusion to 0% and MIHIR-3 flow in the RCA and branches. The guiding catheter and wire were removed. The patient was loaded with clopidogrel 600 mg at the end of the procedure. Hemostasis was achieved by TR band in the radial artery manual compression in the internal jugular vein. she tolerated the procedure well and was transferred back to the hospital room. Hemodynamic Data: RA: 11 RV: 45/10, 16 PA: 45/17 (29) PCWP: 14 CO: 4.87 CI: 2.71 O2 Sat: PA sat: 70%, AO sat: 99% AO: 153/72 (104) TP PVR: 3.1 Wood units SVR: 1528 Metric units Coronary angiography: This is a right-dominant circulation. Left Main: This arises from the left coronary cusp. It bifurcates into left anterior descending and circumflex vessels. This has mild luminal irregularities but no obstructive lesions. Left anterior descending: this is a large vessel with mild disease but no obstructive lesions. Circumflex: This is a non-dominant vessel. It gives rise to obtuse marginal branches. The first obtuse marginal branch gives a smaller caliber branch with 70% ostial stenosis. The rest of OM has mild disease. The proximal to mid circumflex has diffuse 90% stenosis which was reduced to 0% byx 2 overlapping Synergy XD drug-eluting stent. The obtuse marginal branches have mild disease. Right coronary artery: This arises from the right coronary cusp. It is a dominant vessel. At baseline there was 80% proximal stenosis followed by 100% occlusion in the midsegment. Those were reduced to 0% by balloon angioplasty and drug-eluting stent. The distal RCA branches have mild disease. Impression/Findings: Severe 90% stenosis in the proximal to mid circumflex reduced to 0% by a 2 Synergy XD drug-eluting stents. Subacute total occlusion of the mid right coronary artery reduced to 0% by a Synergy XD drug-eluting stent. Mild disease in the left main and LAD. Mildly elevated filling pressures, low normal cardiac output. Mild pulmonary hypertension. Mild elevation of left filling pressures. Mild elevation of right filling pressures. Mild to moderate pulmonary hypertension. Low normal cardiac output and cardiac index. Uncontrolled systemic hypertension. Plan: Medical therapy for coronary artery disease. Aspirin 81 mg daily for life. Dual antiplatelet therapy with Aspirin 81 mg daily for life and Clopidogrel 75 mg daily for 12 months. Statin therapy for life. Guideline directed medical therapy for heart failure. Further recommendations per inpatient Cardiology service. Doug Stern MD Study Details NSTEMI (non-ST elevated myocardial infarction) ([facility]) [I21.4], Acute systolic heart failure ([facility]) [I50.21], Acute hypoxemic respiratory failure ([facility]) [J96.01] Linda Davis MD CV CARDIAC CATH PROCEDURES Final Result * (ABNORMAL) POC Activated Clotting Time (03/14/2025 5:02 PM EDT) Only the most recent of4 resultswithin the time period is included. [facility] POCT ACT 361(A) 82 - 152 seconds QC Pass/Fail Passed QC LOT # 8 QC Expiration Date 73,125 Blood Venous blood specimen / Unknown 03/14/2025 5:02 PM EDT Narrative JeramieHomero galarza, [place] - 03/17/2025 8:01 AM EDT Qc lot [id number]; pre press operator [id number] Ady Mclaughlin MD POINT OF CARE TEST ENTER/EDIT ORDERABLES Final Result * (ABNORMAL) Lipid panel (03/14/2025 4:26 AM EDT) [facility] Triglycerides 153(H) <150 mg/dL 03/14/2025 9:53 AM EDT [facility] ([facility]) Comment: TRIGLYCERIDE REFERENCE RANGE: 20 YEARS AND OLDER CARDIOVASCULAR RISK LESS THAN 150 mg/dL LOW RISK 150 TO 199 mg/dL BORDERLINE RISK 200 mg/dL AND GREATER HIGH RISK Cholesterol 173 120 - 200 mg/dL 03/14/2025 9:53 AM EDT [facility] ([facility]) LDL Calculated 100 0 - 160 mg/dL 03/14/2025 9:53 AM EDT [facility] ([facility]) HDL 42 23 - 92 mg/dL 03/14/2025 9:53 AM EDT [facility] ([facility]) Non HDL Cholesterol 131 03/14/2025 9:53 AM EDT [facility] ([facility]) Total VLDL-C 31 0 - 40 mg/dL 03/14/2025 9:53 AM EDT [facility] ([facility]) Cholesterol/HDL Ratio 4.1 mg/dL 03/14/2025 9:53 AM EDT [facility] ([facility]) Blood Venous blood specimen / Unknown Arterial Line / Unknown 03/14/2025 4:26 AM EDT 03/14/2025 4:51 AM EDT Linda Davis MD LAB BLOOD ORDERABLES Final Result Performing Organization Address City/[facility]/ZIP Co de Phone Number [facility] ([facility]) [address] [place] [address] * (ABNORMAL) aPTT - baseline (03/13/2025 9:43 PM EDT) aPTT 126.5(H) 25.0 - 35.0 Seconds 03/13/2025 10:57 PM EDT [facility] ([facility]) Comment:Clinical significanc e of the APTT is questionable in the presence of heparin. Blood Venous blood specimen / Unknown Arterial Line / Unknown 03/13/2025 9:43 PM EDT 03/13/2025 10:12 PM EDT Linda Davis MD LAB BLOOD ORDERABLES Final Result Performing Organization Address [facility] Co de Phone Number [facility] ([facility]) [place] [address] * LIMITED ECHO (TTE) W/ STRAIN (03/13/2025 1:18 PM EDT) Anatomical Region Laterality Modality Other 03/13/2025 12:4 0 PM EDT Narrative 03/13/2025 2:21 PM EDT 1 1 [facility] Heart Station [address] [place] [address] [phone] (fax) Echocardiogram-[facility] Name: PILO UGARTE Study Date: 03/13/2025 12:40 PM B/P: 115 mmHg/57 mmHg HR: Date of : 1945 Location: [facility] Height: 65 in. Age: 79 year(s) Patient Room: 3237 Weight: 160 lb. Gender: Female Patient Status: InPt BSA: 1.8 m2 Indication: Heart failure Examination: Limited Echo, Strain Image Quality: Fair Patient Consent: Procedure explained to patient Conclusions Left Ventricle: The left ventricle is normal size. Global left ventricular systolic function is moderately reduced. The EF is 35 % visually. Left ventricular wall thickness is normal. Right Ventricle: The right ventricle appears normal in size. Right ventricular systolic function appears normal. Left Atrium: The left atrium is normal in size. Pericardium: There is a minimal pericardial effusion. Overall Conclusions: Strain imaging was performed: 4 chamber -11.9%; 2 chamber -12.6% and the 3 chamber -12.1% using Desi software Global Longitudinal strain measurement is -12.2%. Limited for strain imaging; complete echo done 03/12/2025 Measurements Left Ventricle Label Value Normal Value LVEF visual 35 % LVDd, 2D 4.78 cm (3.9cm - 5.3cm) LVDs, 2D 3.71 cm (2.1cm - 4cm) IVSd, 2D 1.19 cm (0.6cm - 1.1cm) LVPWd, 2D 1.1 cm (0.6cm - 0.9cm) LV Mass, 2D ASE 203.76 g LV Mass Index, 2D ASE 113.2 g/m?? (44g/m?? - 88.4g/m??) RWT, MM 0.46 (0 - 0.42) LVSVI, 2D 26.7 ml/m2 Aorta Label Value Normal Value AoRoot, 2D 3.3 cm (1.4cm - 3.8cm) Findings Left Ventricle: The left ventricle is normal size. Global left ventricular systolic function is moderately reduced. The EF is 35 % visually. Left ventricular wall thickness is normal. Right Ventricle: The right ventricle appears normal in size. Right ventricular systolic function appears normal. Left Atrium: The left atrium is normal in size. Right Atrium: The right atrium appears normal in size. Mitral Valve: Mitral valve appears normal. Aortic Valve: Aortic valve appears normal. Tricuspid Valve: Tricuspid valve appears normal. Pulmonic Valve: Pulmonary valve appears normal. Aorta: The aortic root exhibits normal size. Great Vessels: IVC: The IVC is normal in size. Respiratory inspiration less than 50%. Pericardium: There is a minimal pericardial effusion. Procedure Staff Reading Group: [facility] [employer] Operator: Cathryn Carey RDCS Ordering Physician: LINDA DAVIS Procedure Note Tom Salinas MD - 03/13/2025 1 1 [facility] Heart Station [address] [place] [address] [phone] (fax) Echocardiogram-[facility] Name: PILO UGARTE Study Date: 03/13/2025 12:40 PM B/P: 115 mmHg/57 mmHg HR: Date of : 1945 Location: [facility] Height: 65 in. Age: 79 year(s) Patient Room: 3237 Weight: 160 lb. Gender: Female Patient Status: InPt BSA: 1.8 m2 Indication: Heart failure Examination: Limited Echo, Strain Image Quality: Fair Patient Consent: Procedure explained to patient Conclusions Left Ventricle: The left ventricle is normal size. Global left ventricular systolic function is moderately reduced. The EF is 35 % visually. Left ventricular wall thickness is normal. Right Ventricle: The right ventricle appears normal in size. Right ventricular systolic function appears normal. Left Atrium: The left atrium is normal in size. Pericardium: There is a minimal pericardial effusion. Overall Conclusions: Strain imaging was performed: 4 chamber -11.9%; 2 chamber -12.6% and the 3 chamber -12.1% using Desi software Global Longitudinal strain measurement is -12.2%. Limited for strain imaging; complete echo done 03/12/2025 Measurements Left Ventricle Label Value Normal Value LVEF visual 35 % LVDd, 2D 4.78 cm (3.9cm - 5.3cm) LVDs, 2D 3.71 cm (2.1cm - 4cm) IVSd, 2D 1.19 cm (0.6cm - 1.1cm) LVPWd, 2D 1.1 cm (0.6cm - 0.9cm) LV Mass, 2D ASE 203.76 g LV Mass Index, 2D ASE 113.2 g/m?? (44g/m?? - 88.4g/m??) RWT, MM 0.46 (0 - 0.42) LVSVI, 2D 26.7 ml/m2 Aorta Label Value Normal Value AoRoot, 2D 3.3 cm (1.4cm - 3.8cm) Findings Left Ventricle: The left ventricle is normal size. Global left ventricular systolic function is moderately reduced. The EF is 35 % visually. Left ventricular wall thickness is normal. Right Ventricle: The right ventricle appears normal in size. Right ventricular systolic function appears normal. Left Atrium: The left atrium is normal in size. Right Atrium: The right atrium appears normal in size. Mitral Valve: Mitral valve appears normal. Aortic Valve: Aortic valve appears normal. Tricuspid Valve: Tricuspid valve appears normal. Pulmonic Valve: Pulmonary valve appears normal. Aorta: The aortic root exhibits normal size. Great Vessels: IVC: The IVC is normal in size. Respiratory inspiration less than 50%. Pericardium: There is a minimal pericardial effusion. Procedure Staff Reading Group: [facility] [employer] Operator: Cathryn Carey RDCS Ordering Physician: LINDA DAVIS us Linda Davis MD CV ECHO PROCEDURES Final R esult * Lavender Top (03/13/2025 8:05 AM EDT) Extra Tube Hold for add-ons. 03/13/2025 10:01 AM EDT [facility] ([facility]) Comment:Auto resulted. Blood Venous blood specimen / Unknown 03/13/2025 8:05 AM EDT 03/13/2025 8:09 AM EDT us Kaylene Vaz MD LAB BLOOD ORDERABLES Final Res ult [facility] ([facility]) [address] [place], [place] [id number] * Light Green Top (03/13/2025 8:05 AM EDT) Extra Tube Hold for add-ons. 03/13/2025 10:01 AM EDT [facility] ([facility]) Comment:Auto resulted. Blood Venous blood specimen / Unknown 03/13/2025 8:05 AM EDT 03/13/2025 8:09 AM EDT Kaylene Vaz MD LAB BLOOD ORDERABLES Final Res ult Performing Organization Address [facility] Co de Phone Number [facility] ([facility]) [address] [place] [address] * (ABNORMAL) POCT glucose meter (03/13/2025 6:12 AM EDT) Only the most recent of4 resultswithin the time period is included. Glucose POC 147(H) 70 - 105 mg/dL 03/13/2025 6:23 AM EDT [facility] ([facility]) Comment:[email or web address] Blood Capillary blood specimen / Unknown 03/13/2025 6:12 AM EDT 03/13/2025 6:23 AM EDT Narrative [facility] ([facility]) - 03/13/2025 6:23 AM EDT Waived Testing in the ED is performed under the ED CLIA certificate #[id number]. Kaylene Vaz MD LAB BLOOD ORDERABLES Final Res ult Performing Organization Address [facility] de Phone Number [facility] ([facility]) [address] [place] [phone] * (ABNORMAL) Arterial blood gas with ionized calcium (03/13/2025 4:53 AM EDT) Only the most recent of2 resultswithin the time period is included. pH, Arterial 7.40 7.35 - 7.45 pH 03/13/2025 4:54 AM EDT [facility] RESPIRATORY THERAPY pCO2, Arterial 38 35 - 48 mmHg 03/13/2025 4:54 AM EDT [facility] RESPIRATORY THERAPY pO2, Arterial 107(H) 83 - 100 mmHg 03/13/2025 4:54 AM EDT [facility] RESPIRATORY THERAPY HCO3, Arterial 23.5 21.0 - 28.0 mEq/L 03/13/2025 4:54 AM EDT [facility] RESPIRATORY THERAPY Calcium, Ion 1.27 1.15 - 1.33 mmol/L 03/13/2025 4:54 AM EDT [facility] RESPIRATORY THERAPY O2 Sat, Arterial 99.2(H) 94.0 - 98.0 % 03/13/2025 4:54 AM EDT [facility] RESPIRATORY THERAPY Base Excess, Arterial -1.1 -2.0 - 3.0 mmol/L 03/13/2025 4:54 AM EDT [facility] RESPIRATORY THERAPY Source Of Oxygen AC/VC 03/13/20 4:54 AM EDT [facility] RESPIRATORY THERAPY FiO2 40 % 03/13/2025 4:54 AM EDT [facility] RESPIRATORY THERAPY PEEP 8 cmH2O 03/13/2025 4:54 AM EDT [facility] RESPIRATORY THERAPY Respiratory Rate 14 03/13/20 4:54 AM EDT [facility] RESPIRATORY THERAPY Tidal Volume 450 03/13/2025 4:54 AM EDT [facility] RESPIRATORY THERAPY Total Minute Volume 9.4 03/13/2025 4:54 AM EDT [facility] RESPIRATORY THERAPY Blood Arterial blood specimen / Unknown Arterial Puncture / Unknown 03/13/2025 4:53 AM EDT 03/13/2025 4:53 AM EDT Kaylene Vaz MD LAB BLOOD ORDERABLES Final Res ult [facility] RESPIRATORY THERAPY [address] [place] [address], [place] * Immunoglobulin E (03/12/2025 8:11 PM EDT) [facility] Immunoglobulin E <1 0 - 100 IU/mL 03/13/2025 1:36 PM EDT [facility] Comment:Test Performed by [facility] [place] [facility] [place] [address] - Released 03/13/2025 13:36 Blood Venous blood specimen / Unknown Arterial Line / Unknown 03/12/2025 8:11 PM EDT 03/12/2025 9:11 PM EDT Kaylene Vaz MD LAB BLOOD ORDERABLES Final Res ult Performing Organization Address City/[facility]/ZIP Co de Phone Number [facility] [address] [place] [address] * Hypersensitivity pneumonitis panel 2 (03/12/2025 8:11 PM EDT) A. flavus Ab, Precipitin None Detected None Detected 03/19/2025 11:09 AM EDT [facility] ([facility]) Aspergillus fumigatus #2 IgE None Detected None Detected 03/19/2025 11:09 AM EDT [facility] ([facility]) Aspergillus fumigatus #3 IgE None Detected None Detected 03/19/2025 11:09 AM EDT [facility] ([facility]) S Viridis Ab, Precipitin None Detected None Detected 03/19/2025 11:09 AM EDT [facility] ([facility]) T. candidus Ab, Precipitin None Detected None Detected 03/19/2025 11:09 AM EDT [facility] ([facility]) Comment: Testing includes antibodies directed at Aspergillus flavus, Aspergillus fumigatus #2, Aspergillus fumigatus #3, Saccharomonospora viridis, and Thermoactinomyces candidus. Performed By: [employer] [address] [place] [address] Housing Assistant Property Manager: Ryley Cardenas MD, PhD CLIA Number: [id number] Blood Venous blood specimen / Unknown Arterial Line / Unknown 03/12/2025 8:11 PM EDT 03/12/2025 9:11 PM EDT Kaylene Vaz MD LAB BLOOD ORDERABLES Final Res ult [facility] ([facility]) [address] [place] [address] * Hypersensitivity pnuemonitis panel 1 (03/12/2025 8:11 PM EDT) A. fumigatus #1 Ab, Precipitin None Detected None Detected 03/19/2025 11:09 AM EDT [facility] ([facility]) A. fumigatus #6 Ab, Precipitin None Detected None Detected 03/19/2025 11:09 AM EDT [facility] ([facility]) A. pullulans Ab, Precipitin None Detected None Detected 03/19/2025 11:09 AM EDT [facility] ([facility]) Wharncliffe Serum Ab, Precipitin None Detected None Detected 03/19/2025 11:09 AM EDT [facility] ([facility]) M Faeni Ab, Precipitin None Detected None Detected 03/19/2025 11:09 AM EDT [facility] ([facility]) Comment: Testing includes antibodies directed at Aureobasidium pullulans, Aspergillus fumigatus #1, Aspergillus fumigatus #6, Micropolyspora faeni, and Wharncliffe Serum. Performed By: [employer] [address] [place] [address] Housing Assistant Property Manager: Ryley Cardenas MD, PhD CLIA Number: [id number] Blood Venous blood specimen / Unknown Arterial Line / Unknown 03/12/2025 8:11 PM EDT 03/12/2025 9:11 PM EDT Kaylene Vaz MD LAB BLOOD ORDERABLES Final Res ult [facility] ([facility]) [address] [place] [address] * Pathology Review (03/12/2025 6:34 PM EDT) Pathologist [facility] Pathology Review Reviewed. Electronica lly signed by Deshawn Toure MD on 03/13/25 at 7:34 AM. 03/13/2025 7:34 AM EDT [facility] ([facility]) Fluid (Bronchoalveolar lavage, right middle lobe) Non-blood Collection / Unknown 03/12/2025 6:34 PM EDT 03/12/2025 6:34 PM EDT Kaylene Vaz MD LAB BLOOD ORDERABLES Final Res ult [facility] ([facility]) [address] [place] [address] * Body fluid cell differential (03/12/2025 6:34 PM EDT) Total Cells Counted for Differential 100 03/13/2025 7:34 AM EDT [facility] ([facility]) Neutrophils Manual, Fluid 90 03/13/2025 7:34 AM EDT [facility] ([facility]) Lymphocytes Manual, Fluid 1 03/13/2025 7:34 AM EDT [facility] ([facility]) Prentiss/Macrophage Manual, Fluid 9 03/13/2025 7:34 AM EDT [facility] ([facility]) Eosinophils Manual, Fluid 03/13/2025 7:34 AM EDT [facility] ([facility]) Basophils Manual, Fluid 03/13/2025 7:34 AM EDT [facility] ([facility]) Mesothelial Manual, Fluid 03/13/2025 7:34 AM EDT [facility] ([facility]) Other Cells, BF Manual 03/13/2025 7:34 AM EDT [facility] ([facility]) Fluid (Bronchoalveolar lavage, right middle lobe) Non-blood Collection / Unknown 03/12/2025 6:34 PM EDT 03/12/2025 6:34 PM EDT Narrative [facility] ([facility]) - 03/13/2025 7:34 AM EDT Differential performed on cytospin us Kaylene Vaz MD LAB BODY FLUIDS AND STOOLS ORD ERABLES Final Result [facility] ([facility]) [address] [place] [address] * (ABNORMAL) Body fluid cell count with differential (03/12/2025 6:34 PM EDT) Fluid Type Cell Count Bronchial Fluid 03/12/2025 8:30 PM EDT [facility] ([facility]) Fluid Volume 30 mL 03/12/2025 8:30 PM EDT [facility] ([facility]) RBC, Fluid 6,828(H) 0 - 1,000 RBC/uL 03/12/2025 8:30 PM EDT [facility] ([facility]) Total Number of Nucleated Cells 1,038 TNC/uL 03/12/2025 8:30 PM EDT [facility] ([facility]) Fluid (Bronchoalveolar lavage, right middle lobe) Non-blood Collection / Unknown 03/12/2025 6:34 PM EDT 03/12/2025 6:34 PM EDT Narrative [facility] ([facility]) - 03/12/2025 8:30 PM EDT Reference Ranges for Total Number of Nucleated Cells: Cerebrospinal Fluid 0-5 TNC/uL Pleural Fluid 0-1,000 TNC/uL Peritoneal Fluid 0-100 TNC/uL Pericardial Fluid 0-1,000 TNC/uL Synovial Fluid 0-200 TNC/uL Reference Ranges for Erythrocytes in Body Fluid: Pleural Fluid 0-100,000 RBC/uL Peritoneal Fluid 0-50,000 RBC/uL Unspecified Fluid 0-1,000 RBC/uL us Kaylene Vaz MD LAB BODY FLUIDS AND STOOLS ORD ERABLES Final Result Performing Organization Address City/[facility] Co de Phone Number [facility] ([facility]) [address], [place] [id number] * Respiratory culture (03/12/2025 6:34 PM EDT) Culture No growth at 5 days VANIA 03/17/2025 8:29 AM EDT [facility] ([facility]) Gram Stain Result Many Polymorphonuclear leukocytes 03/17/2025 8:29 AM EDT [facility] ([facility]) Gram Stain Result No organisms seen 03/17/2025 8:29 AM EDT [facility] ([facility]) Lavage (Bronchoalveolar lavage, right middle lobe) Non-blood Collection / Unknown 03/12/2025 6:34 PM EDT 03/12/2025 6:34 PM EDT us Kaylene Vaz MD LAB MICROBIOLOGY - GENERAL ORD ERABLES Final Result Performing Organization Address City/[facility]/ZIP Co de Phone Number [facility] ([facility]) [address] [place] [address] * CT chest w IV contrast (03/12/2025 5:12 PM EDT) Anatomical Region Laterality Modality Body, Chest Computed Tomogra phy us Historical Provider MD RENEE CT PROCEDURES Final R esult * COMPLETE ECHO (TTE) W/ IMAGING AGENT (03/12/2025 11:24 AM EDT) Anatomical Region Laterality Modality Other 03/12/2025 10:4 1 AM EDT Narrative 03/12/2025 1:34 PM EDT 1 1 [facility] Heart Station [address] [place] [address] [phone] (fax) Echocardiogram-[facility] Name: PILO UGARTE Study Date: 03/12/2025 10:41 AM B/P: 99 mmHg/59 mmHg HR: 80 bpm Date of : 1945 Location: [facility] Height: 65 in. Age: 79 year(s) Patient Room: 3237 Weight: 162 lb. Gender: Female Patient Status: InPt BSA: 1.81 m2 Indication: Congestive Heart Failure, acute hypoxic respiratory failure Examination: Echocardiogram (Complete), Lumason Contrast Image Quality: Fair Patient Consent: Unable to explain procedure, due to medical/mental status Exam Details Contrast: I.V. dose of Lumason Conclusions Left Ventricle: The left ventricle is normal size. Global left ventricular systolic function is severely reduced. The calculated 2D EF is 25 %. EF range is estimated at 25 % -30 %. Left ventricular wall thickness is mildly increased. Regional wall motion abnormalities (see diagram). Diastolic dysfunction was indeterminate. Left atrial filling pressure is elevated. Right Ventricle: The right ventricle is normal in size. Normal right ventricular systolic function. Unable to assess right sided pressures due to lack of measurable tricuspid regurgitation. Left Atrium: The left atrium is normal in size. Mitral Valve: Trivial mitral regurgitation. Aortic Valve: Trivial aortic valve regurgitation. Pericardium: There is a minimal pericardial effusion. Overall Conclusions: Due to suboptimal imaging Lumason contrast was administered for opacification and better delineation of endocardial borders. Measurements Left Ventricle Label Value Normal Value LVOTd 1.9 cm (18cm - 20cm) LVOT VTI 16.1 cm (18cm - 22cm) LVOT PGmax 3 mmHg LVDd, 2D 4.57 cm (3.9cm - 5.3cm) LVDs, 2D 4.04 cm (2.1cm - 4cm) IVSd, 2D 1.13 cm (0.6cm - 1.1cm) LVPWd, 2D 1.1 cm (0.6cm - 0.9cm) LV Mass, 2D ASE 182.8 g LV Mass Index, 2D ASE 101 g/m?? (44g/m?? - 88.4g/m??) RWT, MM 0.48 (0 - 0.42) LVSVI, 2D 13.3 ml/m2 LVOT PGmean 2 mmHg LVSV_LVOT 46 ml Right Ventricle Label Value Normal Value RVDd, 2D 3.04 cm (1.9cm - 3.8cm) TAPSE 1.7 cm Left Atrium Label Value Normal Value LA Volume, BP 35 ml (22ml - 52ml) LADs, 2D 2.9 cm (2.7cm - 3.8cm) LAESV index, BP 19.3 ml/m?? Right Atrium Label Value Normal Value RA Area 10.2 cm?? Aortic Valve Label Value Normal Value AV DVI 0.64 AV VTI 24.2 cm Mitral Valve Label Value Normal Value MV E Vmax 0.53 m/s MV A Vmax 1.05 m/s MV E/A 0.5 MV E/E' lateral 15.2 MV E' lateral 0.03 m/s Aorta Label Value Normal Value AoRoot, 2D 2.9 cm (1.4cm - 3.8cm) Valvular Assessment LVOT 0.7 - 1.1 m/sec Aortic Valve 1.0 - 1.7 m/sec Mitral Valve 0.6 - 1.3 m/sec Tricuspid Valve 0.3 - 0.7 m/sec Pulmonic Valve 0.6 - 0.9 m/sec Regurgitation Trivial Trivial Trivial No Stenosis No No No No Max Velocity 0.88 m/sec 1.37 m/s 0.53 m/sec Max Gradient 8.00 mmHg Mean Gradient 4.00 mmHg Valve Area 1.8 cm?? Findings Left Ventricle: The left ventricle is normal size. Global left ventricular systolic function is severely reduced. The calculated 2D EF is 25 %. EF range is estimated at 25 % -30 %. Left ventricular wall thickness is mildly increased. Regional wall motion abnormalities (see diagram). The basal anteroseptal, basal inferoseptal, basal inferior, mid anteroseptal, mid inferoseptal and mid inferior left ventricular wall segments are hypokinetic. The basal anterior, basal inferolateral, basal anterolateral, mid anterior, mid inferolateral and mid anterolateral left ventricular wall segments are akinetic. All remaining scored left ventricular wall segments are with no wall motion abnormalities. Diastolic dysfunction was indeterminate. Left atrial filling pressure is elevated. Right Ventricle: The right ventricle is normal in size. Normal right ventricular systolic function. Unable to assess right sided pressures due to lack of measurable tricuspid regurgitation. Left Atrium: The left atrium is normal in size. Right Atrium: The right atrium is normal in size. Mitral Valve: There is nonspecific thickening of the mitral valve leaflet. Trivial mitral regurgitation. No mitral valve stenosis. Aortic Valve: The aortic valve is normal. Trivial aortic valve regurgitation. No aortic valve stenosis. The aortic valve is trileaflet. Tricuspid Valve: Tricuspid valve appears normal. Trivial tricuspid regurgitation. No tricuspid valve stenosis. Pulmonic Valve: Normal pulmonary valve. No pulmonary regurgitation. No pulmonic valve stenosis. Aorta: The aortic root exhibits normal size. Great Vessels: IVC: The IVC is normal in size. The patient is on a ventilator. Pericardium: There is a minimal pericardial effusion. Procedure Staff Reading Group: [facility] Referring Physician: CRIS CARSON [employer] Operator: CHELSIE Hall Ordering Physician: KAYLENE VAZ Wall Motion Scores -1 - hyperkinesia, 0 - not evaluated, 1 - normal, 2 - hypokinesia, 3 - akinesia, 4 - dyskinesia Procedure Note Martina Montilla MD - 03/12/2025 1 1 [facility] Heart Station [address] [place] [address] [phone] (fax) Echocardiogram-[facility] Name: PILO UGARTE Study Date: 03/12/2025 10:41 AM B/P: 99 mmHg/59 mmHg HR: 80 bpm Date of : 1945 Location: [facility] Height: 65 in. Age: 79 year(s) Patient Room: 3237 Weight: 162 lb. Gender: Female Patient Status: InPt BSA: 1.81 m2 Indication: Congestive Heart Failure, acute hypoxic respiratory failure Examination: Echocardiogram (Complete), Lumason Contrast Image Quality: Fair Patient Consent: Unable to explain procedure, due to medical/mental status Exam Details Contrast: I.V. dose of Lumason Conclusions Left Ventricle: The left ventricle is normal size. Global left ventricular systolic function is severely reduced. The calculated 2D EF is 25 %. EF range is estimated at 25 % -30 %. Left ventricular wall thickness is mildly increased. Regional wall motion abnormalities (see diagram). Diastolic dysfunction was indeterminate. Left atrial filling pressure is elevated. Right Ventricle: The right ventricle is normal in size. Normal right ventricular systolic function. Unable to assess right sided pressures due to lack of measurable tricuspid regurgitation. Left Atrium: The left atrium is normal in size. Mitral Valve: Trivial mitral regurgitation. Aortic Valve: Trivial aortic valve regurgitation. Pericardium: There is a minimal pericardial effusion. Overall Conclusions: Due to suboptimal imaging Lumason contrast was administered for opacification and better delineation of endocardial borders. Measurements Left Ventricle Label Value Normal Value LVOTd 1.9 cm (18cm - 20cm) LVOT VTI 16.1 cm (18cm - 22cm) LVOT PGmax 3 mmHg LVDd, 2D 4.57 cm (3.9cm - 5.3cm) LVDs, 2D 4.04 cm (2.1cm - 4cm) IVSd, 2D 1.13 cm (0.6cm - 1.1cm) LVPWd, 2D 1.1 cm (0.6cm - 0.9cm) LV Mass, 2D ASE 182.8 g LV Mass Index, 2D ASE 101 g/m?? (44g/m?? - 88.4g/m??)RWT, MM 0.48 (0 - 0.42) LVSVI, 2D 13.3 ml/m2 LVOT PGmean 2 mmHg LVSV_LVOT 46 ml Right Ventricle Label Value Normal Value RVDd, 2D 3.04 cm (1.9cm - 3.8cm) TAPSE 1.7 cm Left Atrium Label Value Normal Value LA Volume, BP 35 ml (22ml - 52ml) LADs, 2D 2.9 cm (2.7cm - 3.8cm) LAESV index, BP 19.3 ml/m?? Right Atrium Label Value Normal Value RA Area 10.2 cm?? Aortic Valve Label Value Normal Value AV DVI 0.64 AV VTI 24.2 cm Mitral Valve Label Value Normal Value MV E Vmax 0.53 m/s MV A Vmax 1.05 m/s MV E/A 0.5 MV E/E' lateral 15.2 MV E' lateral 0.03 m/s Aorta Label Value Normal Value AoRoot, 2D 2.9 cm (1.4cm - 3.8cm) Valvular Assessment LVOT 0.7 - 1.1 m/sec Aortic Valve 1.0 - 1.7 m/sec Mitral Valve 0.6 - 1.3 m/sec Tricuspid Valve 0.3 - 0.7 m/sec Pulmonic Valve 0.6 - 0.9 m/sec Regurgitation Trivial Trivial Trivial No Stenosis No No No No Max Velocity 0.88 m/sec 1.37 m/s 0.53 m/sec Max Gradient 8.00 mmHg Mean Gradient 4.00 mmHg Valve Area 1.8 cm?? Findings Left Ventricle: The left ventricle is normal size. Global left ventricular systolic function is severely reduced. The calculated 2D EF is 25 %. EF range is estimated at 25 % -30 %. Left ventricular wall thickness is mildly increased. Regional wall motion abnormalities (see diagram). The basal anteroseptal, basal inferoseptal, basal inferior, mid anteroseptal, mid inferoseptal and mid inferior left ventricular wall segments are hypokinetic. The basal anterior, basal inferolateral, basal anterolateral, mid anterior, mid inferolateral and mid anterolateral left ventricular wall segments are akinetic. All remaining scored left ventricular wall segments are with no wall motion abnormalities. Diastolic dysfunction was indeterminate. Left atrial filling pressure is elevated. Right Ventricle: The right ventricle is normal in size. Normal right ventricular systolic function. Unable to assess right sided pressures due to lack of measurable tricuspid regurgitation. Left Atrium: The left atrium is normal in size. Right Atrium: The right atrium is normal in size. Mitral Valve: There is nonspecific thickening of the mitral valve leaflet. Trivial mitral regurgitation. No mitral valve stenosis. Aortic Valve: The aortic valve is normal. Trivial aortic valve regurgitation. No aortic valve stenosis. The aortic valve is trileaflet. Tricuspid Valve: Tricuspid valve appears normal. Trivial tricuspid regurgitation. No tricuspid valve stenosis. Pulmonic Valve: Normal pulmonary valve. No pulmonary regurgitation. No pulmonic valve stenosis. Aorta: The aortic root exhibits normal size. Great Vessels: IVC: The IVC is normal in size. The patient is on a ventilator. Pericardium: There is a minimal pericardial effusion. Procedure Staff Reading Group: [facility] Referring Physician: CRIS CARSON [employer] Operator: CHELSIE Hall Ordering Physician: KAYLENE VAZ Wall Motion Scores -1 - hyperkinesia, 0 - not evaluated, 1 - normal, 2 - hypokinesia, 3 - akinesia, 4 - dyskinesia us Kaylene Vaz MD CV ECHO PROCEDURES Final Resul t * CT chest wo IV contrast (03/12/2025 10:19 AM EDT) Anatomical Region Laterality Modality Body, Chest Computed Tomogra phy 03/12/2025 10:4 7 AM EDT Impressions 03/12/2025 10:51 AM EDT * Extensive multifocal airspace opacities and groundglass opacities with ill-defined nodular opacities also scattered throughout each lung. Findings likely represent combination of acute multifocal pneumonia as well as parenchymal changes related to chronic sarcoidosis. Correlation with any outside imaging would be helpful for comparison purposes. Alternatively short-term follow-up CT imaging would be suggested. * Splenomegaly. * Cholelithiasis. Electronically signed: Alexandru Espinoza MD. Narrative 03/12/2025 10:[address] CHEST WITHOUT CONTRAST HISTORY: Multifocal pneumonia COMPARISON: None. TECHNIQUE: Routine CT chest without contrast. All CT scans at this facility use dose modulation, iterative reconstruction, and/or weight based dosing when appropriate to reduce radiation dose to as low as reasonably achievable. FINDINGS: ET tube, esophageal probe, and gastric drainage tube in place. Sequela of old granulomatous disease. Multifocal airspace disease and groundglass opacities scattered throughout each lung. No significant pleural effusions. Cholelithiasis. The spleen is enlarged measuring 15.3 cm. Trace pericardial effusion. Normal heart size. Atherosclerotic thoracic aorta. The central pulmonary arteries are unremarkable. Numerous calcified/partially calcified mediastinal lymph nodes. Visualized chest wall structures are unremarkable. No acute osseous abnormalities or aggressive osseous lesions. Procedure Note Alexandru Espinoza MD - 03/12/2025 CT CHEST WITHOUT CONTRAST HISTORY: Multifocal pneumonia COMPARISON: None. TECHNIQUE: Routine CT chest without contrast. All CT scans at [facility] use dose modulation, iterative reconstruction, and/or weight based dosingwhen appropriate to reduce radiation dose to as low as reasonably achievable. FINDINGS: ET tube, esophageal probe, and gastric drainage tube in place. Sequela ofold granulomatous disease. Multifocal airspace disease and groundglassopacities scattered throughout each lung. No significant pleural effusions. Cholelithiasis. The spleen is enlarged measuring 15.3 cm. Tracepericardial effusion. Normal heart size. Atherosclerotic thoracic aorta. The central pulmonary arteries are unremarkable. Numerous calcified/partiallycalcified mediastinal lymph nodes. Visualized chest wall structures areunremarkable. No acute osseous abnormalities or aggressive osseous lesions. IMPRESSION: *Extensive multifocal airspace opacities and groundglass opacities with ill-defined nodular opacities also scattered throughout each lung.Findings likely represent combination of acute multifocal pneumonia as well as parenchymal changes related to chronic sarcoidosis. Correlation with anyoutside imaging would be helpful for comparison purposes. Alternativelyshort-term follow-up CT imaging would be suggested. *Splenomegaly. *Cholelithiasis. Electronically signed: Alexandru Espinoza MD. Kaylene Vaz MD IM CT PROCEDURES Final Result * (ABNORMAL) Respiratory virus PCR panel (03/12/2025 9:49 AM EDT) Adenovirus Not Detected Not Detected 03/12/2025 1:11 PM EDT [facility] ([facility]) Bordetella pertussis Not Detected Not Detected 03/12/2025 1:11 PM EDT [facility] ([facility]) Bordetella parapertussis Not Detected Not Detected 03/12/2025 1:11 PM EDT [facility] ([facility]) Chlamydia pneumoniae Not Detected Not Detected 03/12/2025 1:11 PM EDT [facility] ([facility]) Coronavirus 229E Not Detected Not Detected 03/12/2025 1:11 PM EDT [facility] ([facility]) Coronavirus HKU1 Not Detected Not Detected 03/12/2025 1:11 PM EDT [facility] ([facility]) Coronavirus NL63 Not Detected Not Detected 03/12/2025 1:11 PM EDT [facility] ([facility]) Coronavirus OC43 Not Detected Not Detected 03/12/2025 1:11 PM EDT [facility] ([facility]) Human Metapneumovirus Detected(A) Not Detected 03/12/2025 1:11 PM EDT [facility] ([facility]) Human Rhinovirus + Enterovirus Not Detected Not Detected 03/12/2025 1:11 PM EDT [facility] ([facility]) Influenza A Not Detected Not Detected 03/12/2025 1:11 PM EDT [facility] ([facility]) Influenza B Not Detected Not Detected 03/12/2025 1:11 PM EDT [facility] ([facility]) Mycoplasma pneumoniae Not Detected Not Detected 03/12/2025 1:11 PM EDT [facility] ([facility]) Parainfluenza 1 Not Detected Not Detected 03/12/2025 1:11 PM EDT [facility] ([facility]) Parainfluenza 2 Not Detected Not Detected 03/12/2025 1:11 PM EDT [facility] ([facility]) Parainfluenza 3 Not Detected Not Detected 03/12/2025 1:11 PM EDT [facility] ([facility]) Parainfluenza 4 Not Detected Not Detected 03/12/2025 1:11 PM EDT [facility] ([facility]) Respiratory Syncytial Virus Not Detected Not Detected 03/12/2025 1:11 PM EDT [facility] ([facility]) SARS-CoV-2 Not Detected Not Detected 03/12/2025 1:11 PM EDT [facility] ([facility]) Swab Nasopharyngeal structure / Unknown Non-blood Collection / Unknown 03/12/2025 9:49 AM EDT 03/12/2025 10:27 AM EDT Narrative [facility] ([facility]) - 03/12/2025 1:11 PM EDT Testing methodology is a multiplexed nucleic acid test intended for the simultaneous qualitative detection and differentiation of nucleic acids from multiple viral and bacterial respiratory organisms in nasopharyngeal swabs ([employer]). Kaylene Vaz MD LAB MICROBIOLOGY - GENERAL ORD ERABLES Final Result [facility] ([facility]) [address] [place] [address] * Blood culture, peripheral #2 (03/12/2025 8:20 AM EDT) Only the most recent of2 resultswithin the time period is included. Blood Culture No growth at 5 days VANIA 03/17/2025 9:01 AM EDT [facility] ([facility]) Blood Venous blood specimen / Unknown Venipuncture / Unknown 03/12/2025 8:20 AM EDT 03/12/2025 8:43 AM EDT Kaylene Vaz MD LAB MICROBIOLOGY - GENERAL ORD ERABLES Final Result Performing Organization Address City/[facility]/ZIP Co de Phone Number [facility] ([facility]) [address] [place] [address] * SARS-CoV-2 PCR (03/12/2025 7:49 AM EDT) Pathologist [facility] SARS-CoV-2 PCR Negative Negative 03/12/2025 8:40 AM EDT [facility] ([facility]) Swab Nasal structure / Unknown Non-blood Collection / Unknown 03/12/2025 7:49 AM EDT 03/12/2025 7:51 AM EDT Narrative [facility] ([facility]) - 03/12/2025 8:40 AM EDT Testing methodology utilizes isothermal nucleic acid amplification technology for the differential and qualitative detection of SARS-CoV-2 viral nucleic acids. Kaylene Vaz MD LAB MICROBIOLOGY - GENERAL ORD ERABLES Final Result [facility] ([facility]) [address] [place] [address] * MRSA/MSSA DNA Nasal (03/12/2025 6:34 AM EDT) MSSA DNA Negative Negative 03/12/2025 3:22 PM EDT [facility] ([facility]) MRSA DNA Negative Negative 03/12/2025 3:22 PM EDT [facility] ([facility]) Swab Nasal structure / Unknown Non-blood Collection / Unknown 03/12/2025 6:34 AM EDT 03/12/2025 6:44 AM EDT [facility] ([facility]) - 03/12/2025 3:22 PM EDT Testing methodology is an automated qualitative in vitro diagnostic test for the direct detection and differentiation of Staphylococcus aureus (SA) DNA and methicillin-resistant Staphylococcus aureus (MRSA) DNA from nasal swabs in patients at risk for nasal colonization. The test utilizes real-time polymerase chain reaction (PCR) for the amplification of MRSA/SA DNA and fluorogenic target-specific hybridization probes for the detection of the amplified DNA. A negative result does not preclude nasal colonization. Kaylene Vaz MD LAB MICROBIOLOGY - GENERAL ORD ERABLES Final Result [facility]) [address] [place] [address] * Rapid influenza A/B PCR (03/12/2025 6:34 AM EDT) Pathologist [facility] Rapid Influenza A PCR Negative Negative 03/12/2025 7:11 AM EDT [facility] ([facility]) Rapid Influenza B PCR Negative Negative 03/12/2025 7:11 AM EDT [facility] ([facility]) Swab Nasal structure / Unknown Non-blood Collection / Unknown 03/12/2025 6:34 AM EDT 03/12/2025 6:43 AM EDT [facility]) - 03/12/2025 7:11 AM EDT Testing methodology utilizes isothermal nucleic acid amplification technology for the differential and qualitative detection of Influenza A and Influenza B viral nucleic acids. Kaylene Vaz MD LAB MICROBIOLOGY - GENERAL ORD ERABLES Final Result [facility] ([facility]) [address] [place] [address] * (ABNORMAL) Urinalysis with microscopic (03/12/2025 6:30 AM EDT) Color, Urine Yellow Colorless, Yellow, Light-Yellow 03/12/2025 3:26 PM EDT [facility] ([facility]) Clarity, Urine Clear Clear 03/12/2025 3:26 PM EDT [facility] ([facility]) Specific [place], Urine >1.050(H) 1.010 - 1.030 03/12/2025 3:26 PM EDT [facility] ([facility]) pH, Urine 5.5 5.0 - 8.0 pH 03/12/2025 3:26 PM EDT [facility] ([facility]) Leukocytes, Urine Negative Negative 03/12/2025 3:26 PM EDT [facility] ([facility]) Nitrite, Urine Negative Negative 03/12/2025 3:26 PM EDT [facility] ([facility]) Protein, Urine Negative Negative mg/dL 03/12/2025 3:26 PM EDT [facility] ([facility]) Glucose, Urine Normal Normal mg/dL 03/12/2025 3:26 PM EDT [facility] ([facility]) Bilirubin, Urine Negative Negative 03/12/2025 3:26 PM EDT [facility] ([facility]) Ketones, Urine Negative Negative mg/dL 03/12/2025 3:26 PM EDT [facility] ([facility]) Urobilinogen, Urine Normal Normal mg/dL 03/12/2025 3:26 PM EDT [facility] ([facility]) Blood, Urine Moderate(A) Negative 03/12/2025 3:26 PM EDT [facility] ([facility]) RBC, Urine 11-20(A) None Seen, 0-2 /HPF 03/12/2025 3:26 PM T [facility] ([facility]) WBC, Urine 3-5(A) None Seen, 0-2 /HPF 03/12/2025 3:26 PM EDT [facility] ([facility]) Squamous Epithelial, Urine Occasional None Seen, Occasional, Few /LPF 03/12/2025 3:26 PM EDT [facility] ([facility]) Mucus, Urine Occasional None Seen, Occasional, Few /LPF 03/12/2025 3:26 PM EDT [facility] ([facility]) Urine Urine specimen obtained by clean catch procedure / Unknown Non-blood Collection / Unknown 03/12/2025 6:30 AM EDT 03/12/2025 6:44 AM EDT Kaylene Vaz MD LAB URINE ORDERABLES Final Res ult [facility] ([facility]) [address] [place] [address] * Strep pneumoniae antigen, urine (03/12/2025 6:30 AM EDT) Streptococcus pneumoniae Ag Negative Negative 03/13/2025 7:57 AM EDT [facility] ([facility]) Urine Urine specimen obtained by clean catch procedure / Unknown Non-blood Collection / Unknown 03/12/2025 6:30 AM EDT 03/12/2025 6:44 AM EDT Kaylene Vaz MD LAB URINE ORDERABLES Final Res ult [facility] ([facility]) [address] [place] [address] * Legionella antigen, urine (03/12/2025 6:30 AM EDT) Legionella Antigen, Urine NEGATIVE NEG 03/12/2025 3:36 PM EDT [facility] Comment: L. pneumophila serogroup 1 antigen not detected. A negative result does not exclude infection with Leginella pnemophila serogroup 1 nor does it rule out other microbial-caused respiratory infections of disease caused by other serogroups of Legionella pneumophila. Test Performed by [facility] [address] [place] [id number] - Released 03/12/2025 15:36 Urine Urine specimen obtained by clean catch procedure / Unknown Non-blood Collection / Unknown 03/12/2025 6:30 AM EDT 03/12/2025 9:10 AM EDT us Kaylene Vaz MD LAB URINE ORDERABLES Final Res ult [facility] [address] [place] [address] * (ABNORMAL) Procalcitonin Test (03/12/2025 6:12 AM EDT) Procalcitonin 15.02(HH) 0.00 - 0.10 ng/mL 03/12/2025 8:33 AM EDT [facility] ([facility]) Comment:Monitor triglyceride s while patient is on propofol Blood Venous blood specimen / Unknown Arterial Line / Unknown 03/12/2025 6:12 AM EDT 03/12/2025 6:32 AM EDT Kaylene Vaz MD LAB BLOOD ORDERABLES Final Res ult Performing Organization Address City/[facility]/ZIP Co de Phone Number [facility] ([facility]) [address] [place] [address] * Triglycerides every Monday while patient is on Propofol (03/12/2025 6:12 AM EDT) Triglycerides 95 <150 mg/dL 03/12/2025 7:01 AM EDT [facility] ([facility]) Comment: TRIGLYCERIDE REFERENCE RANGE: 20 YEARS AND OLDER CARDIOVASCULAR RISK LESS THAN 150 mg/dL LOW RISK 150 TO 199 mg/dL BORDERLINE RISK 200 mg/dL AND GREATER HIGH RISK Fasting? Unknown 03/12/2025 7:01 AM EDT [facility] ([facility]) Blood Venous blood specimen / Unknown Arterial Line / Unknown 03/12/2025 6:12 AM EDT 03/12/2025 6:32 AM EDT Kaylene Vaz MD LAB BLOOD ORDERABLES Final Res ult [facility] ([facility]) [address] [place] [address] * XR chest 2 views (03/11/2025 5:12 PM EDT) Anatomical Region Laterality Modality Chest Computed Radiogr aphy us Historical Provider MD RENEE XR PROCEDURES Final R esult from Last 3 Months Insurance MEDICARE GENERIC OTHER Advance Directives * Full Code (Latest Code Status on File) Date Activated Date Inactivated Comments 03/12/2025 5:29 AM 03/20/2025 5:16 PM Care Teams Cowlman Relationship Specialty Start Date End Date Katerina Mortensen MD [facility] [employer] [address] PCP - General 03/19/25
--- OUTSIDE RECORDS SUMMARY | 2025-05-12 10:06 | XMS_ITS | Encounter Summary ---
Author Organization [facility] Address [address] [place] [address] Phone Care Team Providers Care Field Broomer Name Role Phone Katerina Mortensen MD Primary Care Provider [phone] Encounter Details Date Type Department Care Team (Late st Contact Info) Description 02/27/2023 Orders Only [facility] [address] [place] [address] Conversion, Onbase Social History Tobacco Use Types Packs/Day Years Used Date Smoking Tobacco: Never Assessed Comments Unknown Sex and Gender Information Value Date Recorded Sex Assigned at Not on file Legal Sex Female 3:23 PM EDT Gender Identity Not on file Sexual Orientation Not on file documented as of this encounter Plan of Treatment Scheduled Orders Name Type Priority Associated Diagnoses Orde r Schedule OUTSIDE LAB SCAN Lab Ordered: 02/27/2023 documented as of this encounter Visit Diagnoses Not on filedocumented in this encounter Care Teams Field Broomer Relationship Specialty Start Date End Date Katerina Mortensen MD [address] [place] [address] [address] [place] [address] PCP - General 01/18/23 documented as of this encounter
--- OUTSIDE RECORDS SUMMARY | 2025-05-12 10:06 | XMS_ITS | Clinical Summary ---
Author Organization [facility] Address [address] [place] [address] Care Team Providers Care Corporate Quality Assurance Manager Name Role Phone Unavailable Primary Care Provider Unavailabl e Allergies Active Allergy Reactions Criticality Noted Date Comments Iodine Rash Low 11/03/2006 Medications Ventolin HFA 108 (90 Base) MCG/ACT inhaler 3 Active triamcinolone (Kenalog) 0.1 % creamIndication s:Other atopic dermatitis Apply topically 2 (two) times a day as needed (Rash) 60 g 11 4 Active Multiple Vitamin (Multi-Vitamin) tablet Take 1 tablet by mouth in the morning. Active Trelegy Ellipta 100-62.5-25 MCG/ACT aerosol powder 5 Active fluticasone (Flonase) 50 MCG/ACT nasal spray 1 spray in the morning. Active Symbicort 80-4.5 MCG/ACT inhaler every 12 (twelve) hours 4 Active aflibercept (Eylea) 2 MG/0.05ML intra-ocular injection 2 mg by Intravitreal route Active aspirin 81 MG EC tablet Take 81 mg by mouth Daily Active clopidogrel (Plavix) 75 MG tablet Take by mouth Daily Active sacubitril-vals jose luis (Entresto) 24-26 MG tablet Take 1 tablet by mouth in the morning and 1 tablet before bedtime. Active furosemide (Lasix) 20 MG tablet Take by mouth Active metoprolol tartrate (Lopressor) 100 MG tablet Take 100 mg by mouth in the morning and 100 mg before bedtime. Active spironolactone (Aldactone) 25 MG tablet Take by mouth Daily Active Ascorbic Acid (vitamin C) 100 MG tablet Take 100 mg by mouth Daily Active atorvastatin (Lipitor) 40 MG tablet Take 40 mg by mouth Daily Active Active Problems No known active problems Encounters Date Type Department Care Team Description 04/24/2025 1:20 PM EDT Office Visit [facility] [address] [place] [phone] Breanna Landaverde MD Seborrheic keratosis (Primary Dx); Actinic keratosis 04/24/2025 Bamboo flowsheet [facility] [address] [place] [phone] Breanna Landaverde MD 04/24/2025 Travel from Last 3 Months Family History Medical History Relation Name Comments Melanoma Neg Hx Social History Tobacco Use Types Packs/Day Years Used Date Smoking Tobacco: Never Smokeless Tobacco: Never Tobacco Cessation:Counseling Given: Not Answered Alcohol Use Standard Drinks/Week Comments Defer 0 (1 standard drink = 0.6 oz pur e alcohol) Comments Unknown Sex and Gender Information Value Date Recorded Sex Assigned at Not on file Legal Sex Female 7:29 PM EDT Gender Identity Not on file Sexual Orientation Not on file Plan of Treatment Upcoming Encounters Date Type Department Care Team (Late st Contact Info) Description 01/29/2026 9:00 AM EDT Office Visit [facility] [address] [facility] [address] [place] [phone] Breanna Landaverde MD [address] [facility] [address] [place] [address] Health Maintenance Due Date Last Done Comments Influenza Vaccine (#1) 2025 10/08/2016 Pneumococcal Vaccine: 65+ Years Completed 10/25/2019, 10/06/2016, 04/09/2015, Additional history exists Procedures Procedure Name Priority Date/Time Associated Diagnosis Comments CRYOTHERAPY SKIN LESION Routine 04/24/2025 1:47 P M EDT Actinic keratosis from Last 3 Months Results * Cryotherapy, skin lesion (04/24/2025 1:47 PM EDT) Breanna Landaverde MD DERM PROCEDURE ORDERABLES Fin al Result from Last 3 Months Insurance MEDICARE [facility]
--- OUTSIDE RECORDS SUMMARY | 2025-05-12 10:06 | XMS_ITS | Clinical Summary ---
Author Organization [facility] Address [address] [place] [address] Care Team Providers Care Public Opinion Survey Taker Name Role Phone Quinton Pepper Primary Care Provider [phone] Allergies Active Allergy Reactions Criticality Noted Date Comments Iodine Rash 11/03/2006 Medications No known medications Active Problems Problem Noted Date Diagnosed Date Actinic keratosis 11/03/2006 Inflamed seborrheic keratosis 04/04/2005 Benign neoplasm of skin of o ther and unspecified parts of face 04/04/2005 Benign neoplasm of scalp and skin of neck 2004 Benign neoplasm of skin of trunk, except scrotum 04/04/2005 Benign neoplasm of skin of upper limb, including shoulder 04/04/2005 Benign neoplasm of skin of lower limb, including hip 04/04/2005 Social History Tobacco Use Types Packs/Day Years Used Date Smoking Tobacco: Never Alcohol Use Standard Drinks/Week Comments Yes 0 (1 standard drink = 0.6 oz pur e alcohol) Area Deprivation Index Answer Date Magno rded National Score (1-100), lower number is lower ri sk Not on file 10/04/2020 State Score (1-10), lower number is lower risk N ot on file 10/04/2020 Data from: https://www.neighborhoodatlas.medicine.[facility].edu/. Last address used for calculation Not on file 10/04/2020 Comments No Sex and Gender Information Value Date Recorded Sex Assigned at Not on file Legal Sex Female 7:19 AM EST Gender Identity Not on file Sexual Orientation Not on file Last Filed Vital Signs Vital Sign Reading Time Taken Comments Blood Pressure - - Pulse - - Temperature - - Respiratory Rate - - Oxygen Saturation - - Inhaled Oxygen Concentration - - Weight 76.2 kg (168 lb) 04/04/2005 1:00 PM EDT Height - - Body Mass Index - - Plan of Treatment Health Maintenance Due Date Last Done Comments Anxiety Screening 1963 Depression Screening 1963 Hepatitis C Screening 1963 DTaP,Tdap,Td Vaccine (1 - Tdap) 1965 Diabetes Screening 12/31/1991 Shingrix Vaccine (1 of 2) 1996 Pneumococcal Vaccine: 50+ (2 of 2 - PCV) 08/31/2009 08/31/2008 Bone Density Screening 12/31/2011 RSV Vaccine (1 - 1-dose 75+ series) 2021 Covid-19 Vaccine (1 - 2023- season) 2024 Advance Directive Discussion 10/30/2024 Influenza Vaccine (#1) 2025 Insurance [employer] Care Teams Public Opinion Survey Taker Relationship Specialty Start Date End Date Quinton Pepper [address] [place] [address] PCP - General 01/12/05
--- OUTSIDE RECORDS SUMMARY | 2025-05-12 10:30 | XMS_ITS | CCD ---
Author Organization [facility] Care Team Providers Care Pediatric Immunologist Name Role Phone EMILY YIN Unavailable Unavailable [...] Aparicio Primary Care Unavailable TOMLIN, DR ALEXANDER Aparicoi Admitting Unavailable TOMLIN, DR ALEXANDER Aparicio Attending [...] Attending Unavailable Dr. Alexander Tomlin Primary Care UnaMD Alexander Mariano Primary Care Provider [phone] [facility], [place] Attending Provider [facility], Dayanna Attending Unavailable [facility], Dayanna Admitting Unavailable Alexander Tomlin Primary Care Unavailable Unavailable Primary Care Provider UnavailAlexander Calderon MD Primary Care Provider [phone] ALEXANDER TOMLIN Primary Care Unavailable KATHLEEN CASTRO Attending Unavailable ALEXANDER TOMLIN Primary Care Unavailable CATHY BENITEZ Attending Unavailable ALEXANDER TOMLIN Primary Care Unavailable JAMES MO Attending Unavailable ALEXANDER TOMLIN Primary Care Unavailable KATHLEEN CASTRO Attending Unavailable GUSTAVO CASTROA Referring Unavailable ALEXANDER TOMLIN Primary Care Unavailable CATHY BENITEZ Referring Unavailable ALEXANDER TOMLIN Primary Care Unavailable PROVIDER, UNKNOWN Attending Unavailable PROVIDER, UNKNOWN Admitting Unavailable CATALINA, KAYLENE Referring Unavailable CATALINA, KAYLENE Referring Unavailable LIZETH, DELROY T Referring Unavailable LIZETH, DELROY T Referring Unavailable LIZETH, DELROY T Referring Unavailable CATALINA, KAYLENE Referring Unavailable ALFRED STERN Referring Unavailable CATALINA, KAYLENE Referring Unavailable CATALINA, KAYLENE Referring Unavailable CATALINA, KAYLENE Referring Unavailable LUIS BLACKMON Attending Unavailable ROB LOZANO Referring Unavailable VIANEY CAMILO Attending Unavailable CATALINA, KAYLENE Admitting Unavailable LINDA DAVIS Referring Unavailable CATALINA, KAYLENE Referring Unavailable CHOCO LANDAVERDE Attending Unavailable PETITTCHOCO De Dios Attending Unavailable PETCHOCO TUCKER Attending Unavailable Allergies Allergy Classification Reported Allergen(s) Allergy Type Date of Onset Reaction(s) Facility (18 sources) Iodine; Translations: [IODINE] Drug Allergy 11-03-2006 Rash [facility] Repository Medications Current Medications Medication Drug Class(es) Dates Sig (Normalized) Sig (Original) 0.05 ml aflibercept 40 mg/ml injection (7 sources) Vascular Endothelial Growth Factor Inhibitor aflibercept (Eylea) 2 MG/0.05ML intra-ocular injection 2 mg by Intravitreal route Active aflibercept (Eyl ea) 2 mg/0.05 mL intra-ocular injection 0.05 mL (2 mg) by intravitreal route 1 time. Every 4 months Active ascorbic acid 100 mg oral tablet (2 sources) Vitamin C take 1 tablet by mouth once daily Ascorbic Acid (vitamin C) 100 MG tablet Take 100 mg by mouth Daily Active aspirin 81 mg delayed release oral tablet (2 sources) Platelet Aggregation Inhibitor, Nonsteroidal Anti-inflammatory Drug take 1 tablet by mouth once daily aspirin 81 MG EC tablet Take 81 mg by mouth Daily Active atorvastatin 40 mg oral tablet (2 sources) HMG-CoA Reductase Inhibitor take 1 tablet by mouth once daily atorvastatin (Lipitor) 40 MG tablet Take 40 mg by mouth Daily Active 60 actuat budesonide 0.08 mg/actuat / formoterol fumarate 0.0045 mg/actuat metered dose inhaler (5 sources) Corticosteroid, beta2-Adrenergic Agonist Start: 04-02-20 24 Symbicort 80-4.5 MCG/ACT inhaler every 12 (twelve) hours 04/02/2024 Active clopidogrel 75 mg oral tablet (2 sources) P2Y12 Platelet Inhibitor clopidogrel (Plavix) 75 MG tablet Take by mouth Daily Active fluticasone propionate 0.05 mg/actuat metered dose nasal spray (9 sources) Corticosteroid fluticasone (Flonase) 50 MCG/ACT nasal [...] / vilanterol 0.025 mg/actuat dry powder inhaler (5 sources) Anticholinergic, Corticosteroid, beta2-Adrenergic Agonist Start: 12-11-2024 Trelegy Ellipta 100-62.5-25 MCG/ACT aerosol powder 12/11/2024 Active Start: 12-11-2024 take 1 puff(s) by in halation once daily Trelegy Ellipta 100-62.5-25 MCG/ACT aerosol powder INHALE 1 PUFF EVERY DAY 12/11/2024 Active furosemide 20 mg oral tablet (2 sources) Loop Diuretic furosemide (Lasi x) 20 MG tablet Take by mouth Active ammonium lactate 120 mg/ml topical cream (8 sources) Start: 023 End: ammonium lactate (Amlactin) 12 % cream Indications: Xerosis cutis Apply topically Daily as needed for dry skin 145 g 01/30/2025 03/01/2025 Active metoprolol tartrate 100 mg oral tablet (2 sources) beta-Adrenergic Balwinder take 1 tablet by mouth in the morning metoprolol tartrate (Lopressor) 100 MG tablet Take 100 mg by mouth in the morning and 100 mg before bedtime. Active Multiple Vitamin (Multi-Vitamin) tablet (5 sources) take 1 tablet by mouth in the morning Multiple Vitamin (Multi-Vitamin) tablet Take 1 tablet by mouth in the morning. Active multivitamin tablet (5 sources) take 1 tablet by mouth once daily multivitamin tablet Take 1 tablet by mouth once daily. Active Reasnor (No Known Home Meds) (1 source) Start: Reasnor (No Known Home Meds) Active August 02, 2024 12:00am sacubitril 24 mg / valsartan 26 mg oral tablet (2 sources) Angiotensin 2 Receptor Balwinder take 1 tablet by mouth in the morning sacubitril-valsartan (Entresto) 24-26 MG tablet Take 1 tablet by mouth in the morning and 1 tablet before bedtime. Active spironolactone 25 mg oral tablet (2 sources) Aldosterone Antagonist spironolactone (Aldactone) 25 MG tablet Take by mouth Daily Active triamcinolone acetonide 1 mg/ml topical cream (8 sources) Corticosteroid Start: triamcinolone (Kenalog) 0.1 % cream Indications: Other atopic dermatitis Apply topically 2 (two) times a day as needed (Rash) 60 g 11 09/05/2024 Active Completed/Discontinued Medications Medication Drug Class(es) Dates Sig (Normalized) Sig (Original) [id number] 200 actuat albuterol 0.09 mg/actuat metered dose inhaler (17 sources) beta2-Adrenergic Agonist Start: 12-27-2023 End: 08-02-2024 take 1 puff(s) by inhalation every four hours as needed Albuterol Sulfate Discontinued 1 PUFF INHALATION Every 4 hours December 27, 2023 1:00am August 02, 2024 10:38am [employer] puff as needed Inhalation every 4 hrs; Note: Source Status: Taking; Provider: Nabor Borges ( ) Start: 11-29-2022 Ventolin HFA 1 08 (90 Base) MCG/ACT inhaler 11/29/2022 Active Start: 11-29-2022 take 2 puff(s) by mo [...] sources) Epigastric pain; Translations: [Epigastric pain] Episodic Acute myocardial infarction (2 sources) Non-ST elevation (NSTEMI) myocardial infarction; Translations: [Non-ST elevation (NSTEMI) myocardial infarction] Onset: 03-12-2025 Chronic Administrative/social admission (2 sources) Follow-up status; Translations: [Other specified counseling] Episodic Allergic reactions (2 sources) Atopic dermatitis; Translations: [Other atopic dermatitis] 09-05-2024 Chronic Biliary tract disease (2 sources) Calculus of gallbladder without cholecystitis without obstruction; Translations: [Calculus of gallbladder without cholecystitis without obstruction] Onset: 03-12-2025 Episodic Chronic kidney disease (11 sources) Chronic kidney disease stage 3A ; Translations: [Chronic kidney disease, Stage III (moderate)] Onset: 09-09-2024 09-09-2024 Chronic Chronic kidney disease (2 sources) Chronic kidney disease; Translations: [Chronic kidney disease, stage 3a (Multi)] Onset: 09-09-2024 Congestive heart failure; nonhypertensive (4 sources) Acute combined systolic (congestive) and diastolic (congestive) heart failure; Translations: [Chronic systolic (congestive) heart failure] Onset: 03-12-2025 Chronic Coronary atherosclerosis and other heart disease (4 sources) Ischemic cardiomyopathy; Translations: [Atherosclerotic heart disease of [place] coronary artery without angina pectoris] Onset: 03-12-2025 Chronic Coronary atherosclerosis and other heart disease (2 sources) Coronary atherosclerosis and other heart disease; Translations: [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] Onset: 03-26-2025 Disorders of lipid metabolism (18 sources) Hyperlipidemia; Translations: [Other and unspecified hyperlipidemia] Onset: 03-02-2023 Resolved: 12-23-2024 Chronic E Codes: Natural/environment (2 sources) Insect bite - wound; Translations: [Bitten or stung by nonvenomous insect and other nonvenomous arthropods, initial encounter] 09-05-2024 Episodic Genitourinary symptoms and ill-defined conditions (2 sources) Increased frequency of urination; Translations: [Frequency of micturition] 08-02-2024 Episodic Immunity disorders (14 sources) Sarcoidosis; Translations: [Sarcoidosis, unspecified] Onset: 10-15-2024 10-15-2024 Chronic Malaise and fatigue (2 sources) Weakness; Translations: [Weakness] Onset: 03-12-2025 Episodic Neoplasms of unspecified nature or uncertain behavior [...] Inflamed seborrheic keratosis Episodic Other skin disorders (6 sources) Actinic keratosis; Translations: [Actinic keratosis] 09-05-2024 Episodic Other skin disorders (2 sources) Asteatosis cutis; Translations: [Xerosis cutis] 01-30-2025 Episodic Other skin disorders (4 sources) Seborrheic keratosis; Translations: [Other seborrheic keratosis] 01-30-2025 Episodic Other skin disorders (2 sources) Lentiginosis; Translations: [Other melanin hyperpigmentation] 01-30-2025 Episodic Other skin disorders (2 sources) Sebaceous hyperplasia; Translations: [Other specified follicular disorders] 01-30-2025 Episodic Other skin disorders (2 sources) Inflamed seborrheic keratosis; Translations: [Inflamed seborrheic keratosis] 01-30-2025 Episodic Pneumonia (except that caused by tuberculosis or sexually transmitted disease) (2 sources) Viral pneumonia, unspecified; Translations: [Viral pneumonia, unspecified] Onset: 03-12-2025 Episodic Residual codes; unclassified (1 source) Kidney donor; Translations: [Kidney donor] Onset: 10-17-2018 Episodic Residual codes; unclassified (5 sources) Localized edema; Translations: [LOCALIZED EDEMA] Onset: 01-16-2023 Episodic Residual codes; unclassified (7 sources) Never smoked tobacco; Translations: [Other specified health status] Onset: 09-09-2024 09-09-2024 Episodic Respiratory failure; insufficiency; arrest (adult) (2 sources) Acute respiratory failure with hypoxia; Translations: [Acute respiratory failure with hypoxia] Onset: 03-12-2025 Episodic Unclassified (1 source) Personal history of [...] Interpretation Reference Range Facility No Panel Informationon 04-24 [facility] 36on 03-25-2025 36 Normal [facility] Documentationon 03-25-2025 Documentation Normal [facility] 30on 03-20-2025 30 The patient is Moder ately Stable - Low risk of patient condition declining or worsening The patient's goals for the shift include Comfort and rest The clinical goals for the shift include VSS and safety Normal [facility] BASIC METABOLIC PANELon 02-28 Anion gap [Moles/Vol] 7 mmol/L Normal 7-20 [facility] Comment on above: Performed By: #### L [id number] ####[facility] ([facility])[address] [place] [address] Calcium [Mass/Vol] 8.5 mg/dL Low 8.6-10.3 [facility] Comment on above: Performed By: #### L [id number] ####[facility] ([facility])[address] [facility] [place] [address] Chloride [Moles/Vol] 106 mmol/L Normal 98-107 [facility] Comment on above: Performed By: #### L [id number] ####[facility] ([facility])[address] [place] [address] CO2 [Moles/Vol] 29 mmol/L Normal 21-31 [facility] Comment on above: Performed By: #### L [id number] ####[facility] ([facility])[address] [facility] [place] [address] Creatinine [Mass/Vol] 0.90 mg/dL Normal 0.60-1.20 [facility] Comment on above: Performed By: #### L [id number] ####[facility] ([facility])[address] [place] [address] GLOMERULAR FILTRATION RATE ML/MIN/1.73 SQ M.PREDICTED 65.4 mL/min/1.73m*2 Normal >60.0 [facility] Comment on above: Result Comment: The [facility]???s estimated glomerular filtration rate (eGFR) will no longer include consideration of race in its calculation. The National Kidney Foundation???s eGFR Task Force developed new recommendations for [...] disproportionately affect any one group of individuals. Performed By: #### L [id number] ####[facility] ([facility])[address] [place] [address] Glucose [Mass/Vol] 90 mg/dL Normal 70-100 [facility] Comment on above: Performed By: #### L [id number] ####[facility] ([facility])[address] [place] [address] Potassium [Moles/Vol] 3.8 mmol/L Normal 3.5-5.1 [facility] Comment on above: Performed By: #### L [id number] ####[facility] ([facility])[address] [place] [address] Sodium [Moles/Vol] 138 mmol/L Normal 136-145 [facility] Comment on above: Performed By: #### L [id number] ####[facility] ([facility])[address] [place] [address] Urea nitrogen [Mass/Vol] 19 mg/dL Normal 7-25 [facility] Comment on above: Performed By: #### L [id number] ####[facility] ([facility])[address] [place] [address] UREA NITROGEN/CREATININE (MASS RATIO) IN SER/PLAS 21.1 Normal [facility] Comment on above: Performed By: #### L [id number] ####[facility] ([facility])[address] [place] [address] CBC WITH AUTO DIFFERENTIALon 03-20-2025 Basophils (Bld) [#/Vol] 0.00 10*3/uL Normal 0.00-0.20 [facility] Comment on above: Performed By: #### L [id number] ####[facility] ([facility])[address] [place] [address] Basophils/100 WBC (Bld) 0.0 % Normal 0.0-1.0 [facility] Comment on above: Performed By: #### L [id number] ####[facility] ([facility])[address] [place] [address] Eosinophils (Bld) [#/Vol] 0.24 10*3/uL Normal 0.00-0.50 [facility] Comment on above: Performed By: #### L [id number] ####[facility] ([facility])[address] [place] [address] Eosinophils/100 WBC (Bld) 3.8 % Normal 0.0-6.0 [facility] Comment on above: Performed By: #### L [id number] ####[facility] ([facility])[address] [place] [address] Erythrocyte distribution width (RBC) [Ratio] 13.3 % Normal 11.5-15.0 [facility] Comment on above: Performed By: #### L [id number] ####[facility] [place] [address] ERYTHROCYTE MEAN CORPUSCULAR HEMOGLOBIN CONCENTRATION (G/DL) BY AUTOMATED 32.8 g/dL Normal 32.0-35.0 [facility] Comment on above: Performed By: #### L [id number] ####[facility] [place] [address] Hematocrit (Bld) [Volume fraction] 34.5 % Low 36.0-45.0 [facility] Comment on above: Performed By: #### L [id number] ####[facility] ([facility])[address] [place] [address] Hemoglobin (Bld) [Mass/Vol] 11.3 g/dL Low 12.0-15.0 [facility] Comment on above: Performed By: #### L [id number] ####[facility] (BEAKER)[address] [place] [address] Immature granulocytes (Bld) [#/Vol] 0.06 10*3/uL Normal 0.00-0.20 [facility] Comment on above: Performed By: #### L [id number] ####[facility] (BEAKER)[address] [place] [address] Immature granulocytes/100 WBC (Bld) 0.9 % Normal 0.0-1.0 [facility] Comment on above: Performed By: #### L [id number] ####[facility] (BEAKER)[address] [place] [address] Lymphocytes (Bld) [#/Vol] 0.71 10*3/uL Low 1.20-4.00 [facility] Comment on above: Performed By: #### L [id number] ####[facility] (BEAKER)[address] [place] [address] Lymphocytes/100 WBC (Bld) 11.2 % Low 20.0-45.0 [facility] Comment on above: Performed By: #### L [id number] ####[facility] (BEAKER)[address] [place] [address] MCH (RBC) [Entitic mass] 30.7 pg Normal 27.0-33.0 [facility] Comment on above: Performed By: #### L [id number] ####[facility] (BEAKER)[address] [place] [address] MCV (RBC) [Entitic vol] 93.8 fL Normal 82.0-98.0 [facility] Comment on above: Performed By: #### L [id number] ####[facility] ([facility])[address] [place] [address] Monocytes (Bld) [#/Vol] 0.66 10*3/uL Normal 0.10-1.00 [facility] Comment on above: Performed By: #### L [id number] ####[facility] (BEAKER)[address] [address] Monocytes/100 WBC (Bld) 10.4 % Normal 5.0-12.0 [facility] Comment on above: Performed By: #### L [id number] ####[facility] (AKER)[address] [address] Neutrophils (Bld) [#/Vol] 4.67 10*3/uL Normal 1.60-7.60 [facility] Comment on above: Performed By: #### L [id number] ####[facility] ([facility])[address] [address] Neutrophils/100 WBC (Bld) 73.7 % High 40.0-72.0 [facility] Comment on above: Performed By: #### L [id number] ####[facility] [address] NRBC (PER 100 WBCS) BY AUTOMATED COUNT 0.0 % Normal 0 [facility] Comment on above: Performed By: #### L [id number] ####[facility] [place] [address] PLATELETS (10*3/UL) IN BLOOD AUTOMATED COUNT 221 10*3/uL Normal 150-400 [facility] Comment on above: Performed By: #### L [id number] ####[facility] [address] RBC (Bld) [#/Vol] 3.68 10*6/uL Low 3.80-5.00 [facility] Comment on above: Performed By: #### L [id number] ####[facility] ([facility] [place] [address] WBC (Bld) [#/Vol] 6.34 10*3/uL Normal 4.00-10.60 [facility] Comment on above: Performed By: #### L [id number] ####[facility] ([facility])[address] [place] [address] DSon 03-20-2025 DS Normal [facility] MAGNESIUMon 03-20-2025 Magnesium [Mass/Vol] 2.0 mg/dL Normal 1.9-2.7 [facility] Comment on above: Performed By: #### L [id number] ####[facility] ([facility])[address] [place] [address] Orders Onlyon 03-20-2025 Orders Only [id number] Jeannie Gregory cia M 1945 F Date Provider Department [place] 03/20/2025 [id number], HISTORICAL CARD [facility] No family history on file Normal [facility] Telephoneon 03-20-2025 Telephone Normal [facility] 30on 03-19-2025 30 Normal [facility] 30 Normal [facility] 30 The patient is Moder ately Stable - Low risk of patient condition declining or worsening The patient's goals for the shift include Comfort and rest The clinical goals for the shift include VSS and safety Normal [facility] B-TYPE NATRIURETIC PEPTIDEon 03-19-2025 Natriuretic peptide B (Bld) [Mass/Vol] 230 pg/mL High 0-100 [facility] Comment on above: Performed By: #### L [id number] ####[facility] [place] [address] BASIC METABOLIC PANELon 02-28 Anion gap [Moles/Vol] 8 mmol/L Normal 7-20 [facility] Comment on above: Performed By: #### L [id number] ####[facility] ([facility])[address] [place] [address] Calcium [Mass/Vol] 8.6 mg/dL Normal 8.6-10.3 [facility] Comment on above: Performed By: #### L [id number] ####[facility] ([facility])[address] [place] [address] Chloride [Moles/Vol] 107 mmol/L Normal 98-107 [facility] Comment on above: Performed By: #### L [id number] ####[facility] ([facility])[address] [place] [address] CO2 [Moles/Vol] 29 mmol/L Normal 21-31 [facility] Comment on above: Performed By: #### L [id number] ####[facility] ([facility])[address] [place] [address] Creatinine [Mass/Vol] 0.86 mg/dL Normal 0.60-1.20 [facility] Comment on above: Performed By: #### L [id number] ####[facility] ([facility])[address] [place] [address] GLOMERULAR FILTRATION RATE ML/MIN/1.73 SQ M.PREDICTED 69.1 mL/min/1.73m*2 Normal >60.0 [facility] Comment on above: Result Comment: The [facility]???s estimated glomerular filtration rate (eGFR) will no longer include consideration of race in its calculation. The National Kidney Foundation???s eGFR Task Force developed new recommendations for [...] disproportionately affect any one group of individuals. Performed By: #### L [id number] ####[facility] ([facility])[address] [place] [address] Glucose [Mass/Vol] 93 mg/dL Normal 70-100 [facility] Comment on above: Performed By: #### L [id number] ####[facility] [place] [address] Potassium [Moles/Vol] 3.7 mmol/L Normal 3.5-5.1 [facility] Comment on above: Performed By: #### L [id number] ####[facility] [place] [address] Sodium [Moles/Vol] 140 mmol/L Normal 136-145 [facility] Comment on above: Performed By: #### L [id number] ####[facility] [place] [address] Urea nitrogen [Mass/Vol] 20 mg/dL Normal 7-25 [facility] Comment on above: Performed By: #### L [id number] ####[facility] ([facility])[address] [place] [address] UREA NITROGEN/CREATININE (MASS RATIO) IN SER/PLAS 23.3 Normal [facility] Comment on above: Performed By: #### L [id number] ####[facility] ([facility])[address] [place] [address] CBC WITH AUTO DIFFERENTIALon 03-19-2025 Basophils (Bld) [#/Vol] 0.01 10*3/uL Normal 0.00-0.20 [facility] Comment on above: Performed By: #### L [id number] ####[facility] ([facility])[address] [place] [address] Basophils/100 WBC (Bld) 0.2 % Normal 0.0-1.0 [facility] Comment on above: Performed By: #### L [id number] ####[facility] ([facility])[address] [place] [address] Eosinophils (Bld) [#/Vol] 0.21 10*3/uL Normal 0.00-0.50 [facility] Comment on above: Performed By: #### L [id number] ####[facility] ([facility])[address] [place] [address] Eosinophils/100 WBC (Bld) 3.8 % Normal 0.0-6.0 [facility] Comment on above: Performed By: #### L [id number] ####[facility] ([facility])[address] [place] [address] Erythrocyte distribution width (RBC) [Ratio] 13.3 % Normal 11.5-15.0 [facility] Comment on above: Performed By: #### L [id number] ####[facility] ([facility])[address] [place] [address] ERYTHROCYTE MEAN CORPUSCULAR HEMOGLOBIN CONCENTRATION (G/DL) BY AUTOMATED 32.7 g/dL Normal 32.0-35.0 [facility] Comment on above: Performed By: #### L [id number] ####[facility] ([facility])[address] [place] [address] Hematocrit (Bld) [Volume fraction] 34.2 % Low 36.0-45.0 [facility] Comment on above: Performed By: #### L [id number] ####[facility] ([facility])[address] [place] [address] Hemoglobin (Bld) [Mass/Vol] 11.2 g/dL Low 12.0-15.0 [facility] Comment on above: Performed By: #### L [id number] ####[facility] ([facility])[address] [place] [address] Immature granulocytes (Bld) [#/Vol] 0.03 10*3/uL Normal 0.00-0.20 [facility] Comment on above: Performed By: #### L [id number] ####[facility] ([facility])[address] [place] [address] Immature granulocytes/100 WBC (Bld) 0.5 % Normal 0.0-1.0 [facility] Comment on above: Performed By: #### L [id number] ####[facility] ([facility])[address] [place] [address] Lymphocytes (Bld) [#/Vol] 0.59 10*3/uL Low 1.20-4.00 [facility] Comment on above: Performed By: #### L [id number] ####[facility] ([facility])[address] [place] [address] Lymphocytes/100 WBC (Bld) 10.7 % Low 20.0-45.0 [facility] Comment on above: Performed By: #### L [id number] ####[facility] ([facility])[address] [place] [address] MCH (RBC) [Entitic mass] 30.6 pg Normal 27.0-33.0 [facility] Comment on above: Performed By: #### L [id number] ####[facility] ([facility])[address] [place] [address] MCV (RBC) [Entitic vol] 93.4 fL Normal 82.0-98.0 [facility] Comment on above: Performed By: #### L [id number] ####[facility] ([facility])[address] [place] [address] Monocytes (Bld) [#/Vol] 0.55 10*3/uL Normal 0.10-1.00 [facility] Comment on above: Performed By: #### L [id number] ####[facility] ([facility])[address] [place] [address] Monocytes/100 WBC (Bld) 10.0 % Normal 5.0-12.0 [facility] Comment on above: Performed By: #### L [id number] ####[facility] ([facility])[address] [place] [address] Neutrophils (Bld) [#/Vol] 4.12 10*3/uL Normal 1.60-7.60 [facility] Comment on above: Performed By: #### L [id number] ####[facility] ([facility])[address] [place] [address] Neutrophils/100 WBC (Bld) 74.8 % High 40.0-72.0 [facility] Comment on above: Performed By: #### L [id number] ####[facility] ([facility])[address] [place] [address] NRBC (PER 100 WBCS) BY AUTOMATED COUNT 0.0 % Normal 0 [facility] Comment on above: Performed By: #### L [id number] ####[facility] ([facility])[address] [place] [address] PLATELETS (10*3/UL) IN BLOOD AUTOMATED COUNT 191 10*3/uL Normal 150-400 [facility] Comment on above: Performed By: #### L [id number] ####[facility] ([facility])[address] [place] [address] RBC (Bld) [#/Vol] 3.66 10*6/uL Low 3.80-5.00 [facility] Comment on above: Performed By: #### L [id number] ####[facility] ([facility])[address] [place] [address] WBC (Bld) [#/Vol] 5.51 10*3/uL Normal 4.00-10.60 [facility] Comment on above: Performed By: #### L [id number] ####[facility] ([facility])[address] [place] [address] MAGNESIUMon 03-19-2025 Magnesium [Mass/Vol] 2.0 mg/dL Normal 1.9-2.7 [facility] Comment on above: Performed By: #### L [id number] ####[facility] ([facility])[address] [place] [address] 30on 03-18-2024 30 The patient is Moder ately Stable - Low risk of patient condition declining or worsening The patient's goals for the shift include comfort The clinical goals for the shift include VSS, safety Normal [facility] 30 Normal [facility] BASIC METABOLIC PANELon 02-28 Anion gap [Moles/Vol] 7 mmol/L Normal 7-20 [facility] Comment on above: Performed By: #### L [id number] ####[facility] ([facility])[address] [place] [address] Calcium [Mass/Vol] 8.6 mg/dL Normal 8.6-10.3 [facility] Comment on above: Performed By: #### L [id number] ####[facility] ([facility])[address] [place] [address] Chloride [Moles/Vol] 108 mmol/L High 98-107 [facility] Comment on above: Performed By: #### L [id number] ####[facility] ([facility])[address] [place] [address] CO2 [Moles/Vol] 28 mmol/L Normal 21-31 [facility] Comment on above: Performed By: #### L [id number] ####[facility] ([facility])[address] [place] [address] Creatinine [Mass/Vol] 0.90 mg/dL Normal 0.60-1.20 [facility] Comment on above: Performed By: #### L [id number] ####[facility] ([facility])[address] [place] [address] GLOMERULAR FILTRATION RATE ML/MIN/1.73 SQ M.PREDICTED 65.4 mL/min/1.73m*2 Normal >60.0 [facility] Comment on above: Result Comment: The [facility]???s estimated glomerular filtration rate (eGFR) will no longer include consideration of race in its calculation. The National Kidney Foundation???s eGFR Task Force developed new recommendations for [...] disproportionately affect any one group of individuals. Performed By: #### L [id number] ####[facility] ([facility])[address] [place] [address] Glucose [Mass/Vol] 95 mg/dL Normal 70-100 [facility] Comment on above: Performed By: #### L [id number] ####[facility] ([facility])[address] [place] [address] Potassium [Moles/Vol] 3.7 mmol/L Normal 3.5-5.1 [facility] Comment on above: Performed By: #### L [id number] ####[facility] ([facility])[address] [place] [address] Sodium [Moles/Vol] 139 mmol/L Normal 136-145 [facility] Comment on above: Performed By: #### L [id number] ####[facility] ([facility])[address] [place] [address] Urea nitrogen [Mass/Vol] 27 mg/dL High 7-25 [facility] Comment on above: Performed By: #### L [id number] ####[facility] ([facility])[address] [place] [address] UREA NITROGEN/CREATININE (MASS RATIO) IN SER/PLAS 30.0 Normal [facility] Comment on above: Performed By: #### L [id number] ####[facility] ([facility])[address] [place] [address] CBC WITH AUTO DIFFERENTIALon 03-18-2025 Basophils (Bld) [#/Vol] 0.01 10*3/uL Normal 0.00-0.20 [facility] Comment on above: Performed By: #### L [id number] ####[facility] ([facility])[address] [place] [address] Basophils/100 WBC (Bld) 0.2 % Normal 0.0-1.0 [facility] Comment on above: Performed By: #### L [id number] ####[facility] ([facility])[address] [place] [address] Eosinophils (Bld) [#/Vol] 0.07 10*3/uL Normal 0.00-0.50 [facility] Comment on above: Performed By: #### L [id number] ####[facility] ([facility])[address] [place] [address] Eosinophils/100 WBC (Bld) 1.3 % Normal 0.0-6.0 [facility] Comment on above: Performed By: #### L [id number] ####[facility] ([facility])[address] [place] [address] Erythrocyte distribution width (RBC) [Ratio] 13.2 % Normal 11.5-15.0 [facility] Comment on above: Performed By: #### L [id number] ####[facility] ([facility])[address] [place] [address] ERYTHROCYTE MEAN CORPUSCULAR HEMOGLOBIN CONCENTRATION (G/DL) BY AUTOMATED 31.8 g/dL Low 32.0-35.0 [facility] Comment on above: Performed By: #### L [id number] ####[facility] ([facility])[address] [place] [address] Hematocrit (Bld) [Volume fraction] 35.2 % Low 36.0-45.0 [facility] Comment on above: Performed By: #### L [id number] ####[facility] ([facility])[address] [place] [address] Hemoglobin (Bld) [Mass/Vol] 11.2 g/dL Low 12.0-15.0 [facility] Comment on above: Performed By: #### L [id number] ####[facility] ([facility])[address] [place] [address] Immature granulocytes (Bld) [#/Vol] 0.07 10*3/uL Normal 0.00-0.20 [facility] Comment on above: Performed By: #### L [id number] ####[facility] ([facility])[address] [place] [address] Immature granulocytes/100 WBC (Bld) 1.3 % High 0.0-1.0 [facility] Comment on above: Performed By: #### L [id number] ####[facility] ([facility])[address] [place] [address] Lymphocytes (Bld) [#/Vol] 0.60 10*3/uL Low 1.20-4.00 [facility] Comment on above: Performed By: #### L [id number] ####[facility] ([facility])[address] [place] [address] Lymphocytes/100 WBC (Bld) 10.8 % Low 20.0-45.0 [facility] Comment on above: Performed By: #### L [id number] ####[facility] ([facility])[address] [place] [address] MCH (RBC) [Entitic mass] 30.8 pg Normal 27.0-33.0 [facility] Comment on above: Performed By: #### L [id number] ####[facility] ([facility])[address] [place] [address] MCV (RBC) [Entitic vol] 96.7 fL Normal 82.0-98.0 [facility] Comment on above: Performed By: #### L [id number] ####[facility] ([facility])[address] [place] [address] Monocytes (Bld) [#/Vol] 0.53 10*3/uL Normal 0.10-1.00 [facility] Comment on above: Performed By: #### L [id number] ####[facility] ([facility])[address] [place] [address] Monocytes/100 WBC (Bld) 9.6 % Normal 5.0-12.0 [facility] Comment on above: Performed By: #### L [id number] ####[facility] ([facility])[address] [place] [address] Neutrophils (Bld) [#/Vol] 4.26 10*3/uL Normal 1.60-7.60 [facility] Comment on above: Performed By: #### L [id number] ####[facility] ([facility])[address] [place] [address] Neutrophils/100 WBC (Bld) 76.8 % High 40.0-72.0 [facility] Comment on above: Performed By: #### L [id number] ####[facility] ([facility] [address] NRBC (PER 100 WBCS) BY AUTOMATED COUNT 0.0 % Normal 0 [facility] Comment on above: Performed By: #### L [id number] ####[facility] ([facility])[address] [address] PLATELETS (10*3/UL) IN BLOOD AUTOMATED COUNT 177 10*3/uL Normal 150-400 [facility] Comment on above: Performed By: #### L [id number] ####[facility] ([facility])[address] [address] RBC (Bld) [#/Vol] 3.64 10*6/uL Low 3.80-5.00 [facility] Comment on above: Performed By: #### L [id number] ####[facility] ([facility])[address] [address] WBC (Bld) [#/Vol] 5.54 10*3/uL Normal 4.00-10.60 [facility] Comment on above: Performed By: #### L [id number] ####[facility] ([facility])[address] [address] MAGNESIUMon 03-18-2025 Magnesium [Mass/Vol] 2.2 mg/dL Normal 1.9-2.7 [facility] Comment on above: Performed By: #### L [id number] ####[facility] ([facility])[address] [address] 30on 03-17-2025 30 Normal [facility] BASIC METABOLIC PANELon 02-27 Anion gap [Moles/Vol] 8 mmol/L Normal 7-20 [facility] Comment on above: Performed By: #### L [id number] ####[facility] ([facility])[address] [address] Calcium [Mass/Vol] 8.7 mg/dL Normal 8.6-10.3 [facility] Comment on above: Performed By: #### L [id number] ####[facility] ([facility])[address] [place] [address] Chloride [Moles/Vol] 106 mmol/L Normal 98-107 [facility] Comment on above: Performed By: #### L [id number] ####[facility] ([facility])[address] [place] [address] CO2 [Moles/Vol] 29 mmol/L Normal 21-31 [facility] Comment on above: Performed By: #### L [id number] ####[facility] ([facility])[address] [place] [address] Creatinine [Mass/Vol] 0.76 mg/dL Normal 0.60-1.20 [facility] Comment on above: Performed By: #### L [id number] ####[facility] ([facility])[address] [place] [address] GLOMERULAR FILTRATION RATE ML/MIN/1.73 SQ M.PREDICTED 80.2 mL/min/1.73m*2 Normal >60.0 [facility] Comment on above: Result Comment: The [facility]???s estimated glomerular filtration rate (eGFR) will no longer include consideration of race in its calculation. The National Kidney Foundation???s eGFR Task Force developed new recommendations for [...] disproportionately affect any one group of individuals. Performed By: #### L [id number] ####[facility] ([facility] [place] [address] Glucose [Mass/Vol] 97 mg/dL Normal 70-100 [facility] Comment on above: Performed By: #### L [id number] ####[facility] ([facility])[address] [place] [address] Potassium [Moles/Vol] 3.4 mmol/L Low 3.5-5.1 [facility] Comment on above: Performed By: #### L [id number] ####[facility] ([facility])[address] [place] [address] Sodium [Moles/Vol] 140 mmol/L Normal 136-145 [facility] Comment on above: Performed By: #### L [id number] ####[facility] ([facility])[address] [place] [address] Urea nitrogen [Mass/Vol] 26 mg/dL High 7- [facility] Comment on above: Performed By: #### L [id number] ####[facility] ([facility])[address] [place] [address] UREA NITROGEN/CREATININE (MASS RATIO) IN SER/PLAS 34.2 Normal [facility] Comment on above: Performed By: #### L [id number] ####[facility] ([facility])[address] [place] [address] CBC WITH AUTO DIFFERENTIALon 03-17-2025 Basophils (Bld) [#/Vol] 0.01 10*3/uL Normal 0.00-0.20 [facility] Comment on above: Performed By: #### L [id number] ####[facility] ([facility])[address] [place] [address] Basophils/100 WBC (Bld) 0.2 % Normal 0.0-1.0 [facility] Comment on above: Performed By: #### L [id number] ####[facility] ([facility] [place] [address] Eosinophils (Bld) [#/Vol] 0.02 10*3/uL Normal 0.00-0.50 [facility] Comment on above: Performed By: #### L [id number] ####[facility] ([facility] [place] [address] Eosinophils/100 WBC (Bld) 0.3 % Normal 0.0-6.0 [facility] Comment on above: Performed By: #### L [id number] ####[facility] ([facility])[address] [place] [address] Erythrocyte distribution width (RBC) [Ratio] 13.4 % Normal 11.5-15.0 [facility] Comment on above: Performed By: #### L [id number] ####[facility] ([facility])[address] [place] [address] ERYTHROCYTE MEAN CORPUSCULAR HEMOGLOBIN CONCENTRATION (G/DL) BY AUTOMATED 33.1 g/dL Normal 32.0-35.0 [facility] Comment on above: Performed By: #### L [id number] ####[facility] ([facility])[address] [place] [address] Hematocrit (Bld) [Volume fraction] 36.0 % Normal 36.0-45.0 [facility] Comment on above: Performed By: #### L [id number] ####[facility] ([facility])[address] [place] [address] Hemoglobin (Bld) [Mass/Vol] 11.9 g/dL Low 12.0-15.0 [facility] Comment on above: Performed By: #### L [id number] ####[facility] ([facility] [place] [address] Immature granulocytes (Bld) [#/Vol] 0.06 10*3/uL Normal 0.00-0.20 [facility] Comment on above: Performed By: #### L [id number] ####[facility] ([facility] [place] [address] Immature granulocytes/100 WBC (Bld) 1.0 % Normal 0.0-1.0 [facility] Comment on above: Performed By: #### L [id number] ####[facility] ([facility])[address] [place] [address] Lymphocytes (Bld) [#/Vol] 0.51 10*3/uL Low 1.20-4.00 [facility] Comment on above: Performed By: #### L [id number] ####[facility] ([facility] [place] [address] Lymphocytes/100 WBC (Bld) 8.6 % Low 20.0-45.0 [facility] Comment on above: Performed By: #### L [id number] ####[facility] ([facility])[address] [place] [address] MCH (RBC) [Entitic mass] 30.8 pg Normal 27.0-33.0 [facility] Comment on above: Performed By: #### L [id number] ####[facility] ([facility])[address] [place] [address] MCV (RBC) [Entitic vol] 93.3 fL Normal 82.0-98.0 [facility] Comment on above: Performed By: #### L [id number] ####[facility] ([facility] [place] [address] Monocytes (Bld) [#/Vol] 0.47 10*3/uL Normal 0.10-1.00 [facility] Comment on above: Performed By: #### L [id number] ####[facility] ([facility] [place] [address] Monocytes/100 WBC (Bld) 7.9 % Normal 5.0-12.0 [facility] Comment on above: Performed By: #### L [id number] ####[facility] ([facility])[address] [place] [address] Neutrophils (Bld) [#/Vol] 4.86 10*3/uL Normal 1.60-7.60 [facility] Comment on above: Performed By: #### L [id number] ####[facility] ([facility])[address] [place] [address] Neutrophils/100 WBC (Bld) 82.0 % High 40.0-72.0 [facility] Comment on above: Performed By: #### L [id number] ####[facility] ([facility])[address] [address] NRBC (PER 100 WBCS) BY AUTOMATED COUNT 0.0 % Normal 0 [facility] Comment on above: Performed By: #### L [id number] ####[facility] [address] PLATELETS (10*3/UL) IN BLOOD AUTOMATED COUNT 185 10*3/uL Normal 150-400 [facility] Comment on above: Performed By: #### L [id number] ####[facility] ([facility])[address] [address] RBC (Bld) [#/Vol] 3.86 10*6/uL Normal 3.80-5.00 [facility] Comment on above: Performed By: #### L [id number] ####[facility] ([facility])[address] [address] WBC (Bld) [#/Vol] 5.93 10*3/uL Normal 4.00-10.60 [facility] Comment on above: Performed By: #### L [id number] ####[facility] ([facility])[address] [id number] CONSULTon 03-17-2025 CONSULT Normal [facility] CONSULT Normal [facility] 30on 03-16-2025 30 Normal [facility] BASIC METABOLIC PANELon 02-27 Anion gap [Moles/Vol] 11 mmol/L Normal 7-20 [facility] Comment on above: Performed By: #### L [id number] ####[facility] ([facility])[address], [place] [address] Calcium [Mass/Vol] 9.0 mg/dL Normal 8.6-10.3 [facility] Comment on above: Performed By: #### L [id number] ####[facility] (BEAKER)[address], [place] [address] Chloride [Moles/Vol] 104 mmol/L Normal 98-107 [facility] Comment on above: Performed By: #### L [id number] ####[facility] ([facility])[address] [place] [address] CO2 [Moles/Vol] 29 mmol/L Normal 21-31 [facility] Comment on above: Performed By: #### L [id number] ####[facility] ([facility])[address] [place] [address] Creatinine [Mass/Vol] 0.89 mg/dL Normal 0.60-1.20 [facility] Comment on above: Performed By: #### L [id number] ####[facility] ([facility])[address] [place] [address] GLOMERULAR FILTRATION RATE ML/MIN/1.73 SQ M.PREDICTED 66.3 mL/min/1.73m*2 Normal >60.0 [facility] Comment on above: Result Comment: The [facility]???s estimated glomerular filtration rate (eGFR) will no longer include consideration of race in its calculation. The National Kidney Foundation???s eGFR Task Force developed new recommendations for [...] disproportionately affect any one group of individuals. Performed By: #### L [id number] ####[facility] ([facility])[address] [place] [address] Glucose [Mass/Vol] 133 mg/dL High 70-100 [facility] Comment on above: Performed By: #### L [id number] ####[facility] ([facility])[address] [place] [address] Potassium [Moles/Vol] 3.6 mmol/L Normal 3.5-5.1 [facility] Comment on above: Performed By: #### L [id number] ####[facility] ([facility])[address] [place] [address] Sodium [Moles/Vol] 140 mmol/L Normal 136-145 [facility] Comment on above: Performed By: #### L [id number] ####[facility] ([facility])[address] [place] [address] Urea nitrogen [Mass/Vol] 29 mg/dL High 7-25 [facility] Comment on above: Performed By: #### L [id number] ####[facility] ([facility])[address] [place] [address] UREA NITROGEN/CREATININE (MASS RATIO) IN SER/PLAS 32.6 Normal [facility] Comment on above: Performed By: #### L [id number] ####[facility] ([facility])[address] [place] [address] CBC WITH AUTO DIFFERENTIALon 03-16-2025 Basophils (Bld) [#/Vol] 0.01 10*3/uL Normal 0.00-0.20 [facility] Comment on above: Performed By: #### L [id number] ####[facility] ([facility])[address] [place] [address] Basophils/100 WBC (Bld) 0.1 % Normal 0.0-1.0 [facility] Comment on above: Performed By: #### L [id number] ####[facility] ([facility])[address] [place] [address] Eosinophils (Bld) [#/Vol] 0.00 10*3/uL Normal 0.00-0.50 [facility] Comment on above: Performed By: #### L [id number] ####[facility] ([facility])[address] [facility] [place] [address] Eosinophils/100 WBC (Bld) 0.0 % Normal 0.0-6.0 [facility] Comment on above: Performed By: #### L [id number] ####[facility] [address] Erythrocyte distribution width (RBC) [Ratio] 13.5 % Normal 11.5-15.0 [facility] Comment on above: Performed By: #### L [id number] ####[facility] (BEAKER)[address] [place] [address] ERYTHROCYTE MEAN CORPUSCULAR HEMOGLOBIN CONCENTRATION (G/DL) BY AUTOMATED 32.8 g/dL Normal 32.0-35.0 [facility] Comment on above: Performed By: #### L [id number] ####[facility] [place] [address] Hematocrit (Bld) [Volume fraction] 39.0 % Normal 36.0-45.0 [facility] Comment on above: Performed By: #### L [id number] ####[facility] [place] [address] Hemoglobin (Bld) [Mass/Vol] 12.8 g/dL Normal 12.0-15.0 [facility] Comment on above: Performed By: #### L [id number] ####[facility] (BEAKER)[address] [place] [address] Immature granulocytes (Bld) [#/Vol] 0.08 10*3/uL Normal 0.00-0.20 [facility] Comment on above: Performed By: #### L [id number] ####[facility] (BEAKER)[address] [place] [address] Immature granulocytes/100 WBC (Bld) 0.9 % Normal 0.0-1.0 [facility] Comment on above: Performed By: #### L [id number] ####[facility] (BEAKER)[address] [place] [address] Lymphocytes (Bld) [#/Vol] 0.40 10*3/uL Low 1.20-4.00 [facility] Comment on above: Performed By: #### L [id number] ####[facility] (BEAKER)[address] [place] [address] Lymphocytes/100 WBC (Bld) 4.3 % Low 20.0-45.0 [facility] Comment on above: Performed By: #### L [id number] ####[facility] (BEAKER)[address] [place] [address] MCH (RBC) [Entitic mass] 30.6 pg Normal 27.0-33.0 [facility] Comment on above: Performed By: #### L [id number] ####[facility] (BEAKER)[address] [place] [address] MCV (RBC) [Entitic vol] 93.3 fL Normal 82.0-98.0 [facility] Comment on above: Performed By: #### L [id number] ####[facility] [place] [address] Monocytes (Bld) [#/Vol] 0.45 10*3/uL Normal 0.10-1.00 [facility] Comment on above: Performed By: #### L [id number] ####[facility] (BEAKER)[address] [place] [address] Monocytes/100 WBC (Bld) 4.9 % Low 5.0-12.0 [facility] Comment on above: Performed By: #### L [id number] ####[facility] (BEAKER)[address] [place] [address] Neutrophils (Bld) [#/Vol] 8.30 10*3/uL High 1.60-7.60 [facility] Comment on above: Performed By: #### L [id number] ####[facility] (BEAKER)[address] [place] [address] Neutrophils/100 WBC (Bld) 89.8 % High 40.0-72.0 [facility] Comment on above: Performed By: #### L [id number] ####[facility] (BEAKER)[address] [place] [address] NRBC (PER 100 WBCS) BY AUTOMATED COUNT 0.0 % Normal 0 [facility] Comment on above: Performed By: #### L [id number] ####[facility] (BEAKER)[address] [place] [address] PLATELETS (10*3/UL) IN BLOOD AUTOMATED COUNT 234 10*3/uL Normal 150-400 [facility] Comment on above: Performed By: #### L [id number] ####[facility] ([facility])[address] [place] [address] RBC (Bld) [#/Vol] 4.18 10*6/uL Normal 3.80-5.00 [facility] Comment on above: Performed By: #### L [id number] ####[facility] ([facility])[address] [place] [address] WBC (Bld) [#/Vol] 9.24 10*3/uL Normal 4.00-10.60 [facility] Comment on above: Performed By: #### L [id number] ####[facility] ([facility])[address] [place] [address] CT HEAD WO IV CONTRASTon CT HEAD WO IV CONTRAST Normal [facility] HIGH SENSITIVITY TROPONIN Io n 03-16-2025 HS TROPONIN I (NG/L) 2801 ng/L Critically high <15 [facility] Comment on above: Performed By: #### L [id number] ####[facility] ([facility])[address] [place] [address] 30on 03-15-2025 30 Normal [facility] ANTI-XA (HEPARIN LEVEL)on HEPARIN UNFRACTIONATED (U/ML) IN PPP BY CHROMOGENIC METHOD <0.10 Invalid Interpretation Code 0.3-0.7 [facility] Comment on above: Order Comment: Check anti-Xa level every 6 hours while on heparin infusion, or per protocol. Result Comment: Wingate roxaban and Apixaban will interfere with the anti Xa assay used to monitor UFH and LMWH. Performed By: #### L [id number] ####[facility] [place] [address] CBC WITH AUTO DIFFERENTIALon 03-15-2025 Basophils (Bld) [#/Vol] 0.01 10*3/uL Normal 0.00-0.20 [facility] Comment on above: Performed By: #### L [id number] ####[facility] (BEAKER)[address] [place] [address] Basophils/100 WBC (Bld) 0.1 % Normal 0.0-1.0 [facility] Comment on above: Performed By: #### L [id number] ####[facility] (BEAKER)[address] [place] [address] Eosinophils (Bld) [#/Vol] 0.00 10*3/uL Normal 0.00-0.50 [facility] Comment on above: Performed By: #### L [id number] ####[facility] (BEAKER)[address] [place] [address] Eosinophils/100 WBC (Bld) 0.0 % Normal 0.0-6.0 [facility] Comment on above: Performed By: #### L [id number] ####[facility] (BEAKER)[address] [place] [address] Erythrocyte distribution width (RBC) [Ratio] 13.9 % Normal 11.5-15.0 [facility] Comment on above: Performed By: #### L [id number] ####[facility] (BEAKER)[address] [place] [address] ERYTHROCYTE MEAN CORPUSCULAR HEMOGLOBIN CONCENTRATION (G/DL) BY AUTOMATED 32.7 g/dL Normal 32.0-35.0 [facility] Comment on above: Performed By: #### L [id number] ####[facility] (BEAKER)[address] [place] [address] Hematocrit (Bld) [Volume fraction] 36.7 % Normal 36.0-45.0 [facility] Comment on above: Performed By: #### L [id number] ####[facility] (BEAKER)[address] [place] [address] Hemoglobin (Bld) [Mass/Vol] 12.0 g/dL Normal 12.0-15.0 [facility] Comment on above: Performed By: #### L [id number] ####[facility] ([facility])[address] [place] [address] Immature granulocytes (Bld) [#/Vol] 0.04 10*3/uL Normal 0.00-0.20 [facility] Comment on above: Performed By: #### L [id number] ####[facility] ([facility])[address] [place] [address] Immature granulocytes/100 WBC (Bld) 0.4 % Normal 0.0-1.0 [facility] Comment on above: Performed By: #### L [id number] ####[facility] ([facility])[address] [place] [address] Lymphocytes (Bld) [#/Vol] 0.38 10*3/uL Low 1.20-4.00 [facility] Comment on above: Performed By: #### L [id number] ####[facility] ([facility])[address] [place] [address] Lymphocytes/100 WBC (Bld) 3.6 % Low 20.0-45.0 [facility] Comment on above: Performed By: #### L [id number] ####[facility] ([facility])[address] [place] [address] MCH (RBC) [Entitic mass] 30.8 pg Normal 27.0-33.0 [facility] Comment on above: Performed By: #### L [id number] ####[facility] [place] [address] MCV (RBC) [Entitic vol] 94.3 fL Normal 82.0-98.0 [facility] Comment on above: Performed By: #### L [id number] ####[facility] [place] [address] Monocytes (Bld) [#/Vol] 0.43 10*3/uL Normal 0.10-1.00 [facility] Comment on above: Performed By: #### L [id number] ####[facility] (BEAKER)[address], [place] [address] Monocytes/100 WBC (Bld) 4.0 % Low 5.0-12.0 [facility] Comment on above: Performed By: #### L [id number] ####[facility] ([facility]ER)[address], [place] [address] Neutrophils (Bld) [#/Vol] 9.76 10*3/uL High 1.60-7.60 [facility] Comment on above: Performed By: #### L [id number] ####[facility] (BEAKER)[address], [place] [address] Neutrophils/100 WBC (Bld) 91.9 % High 40.0-72.0 [facility] Comment on above: Performed By: #### L [id number] ####[facility] (BEAKER)[address] [place] [address] NRBC (PER 100 WBCS) BY AUTOMATED COUNT 0.0 % Normal 0 [facility] Comment on above: Performed By: #### L [id number] ####[facility] (BEAKER)[address], [place] [address] PLATELETS (10*3/UL) IN BLOOD AUTOMATED COUNT 190 10*3/uL Normal 150-400 [facility] Comment on above: Performed By: #### L [id number] ####[facility] (BEAKER)[address], [place] [address] RBC (Bld) [#/Vol] 3.89 10*6/uL Normal 3.80-5.00 [facility] Comment on above: Performed By: #### L [id number] ####[facility] (BEAKER)[address], [place] [address] WBC (Bld) [#/Vol] 10.62 10*3/uL High 4.00-10.60 [facility] Comment on above: Performed By: #### L [id number] ####[facility] (BEAKER)[address] [place] [address] COMPREHENSIVE METABOLIC PANE Alex 03-15-2025 Albumin [Mass/Vol] 3.6 g/dL Normal 3.5-5.7 [facility] Comment on above: Performed By: #### L [id number] ####[facility] (BEAKER)[address] [place] [address] ALP [Catalytic activity/Vol] 37 U/L Normal 34-104 [facility] Comment on above: Performed By: #### L [id number] ####[facility] (BEAKER)[address] [place] [address] ALT [Catalytic activity/Vol] 13 U/L Normal 7-52 [facility] Comment on above: Performed By: #### L [id number] ####[facility] (BEAKER)[address] [place] [address] Anion gap [Moles/Vol] 11 mmol/L Normal 7-20 [facility] Comment on above: Performed By: #### L [id number] ####[facility] [place] [address] AST [Catalytic activity/Vol] 25 U/L Normal 13-39 [facility] Comment on above: Performed By: #### L [id number] ####[facility] (BEAKER)[address] [place] [address] Bilirubin [Mass/Vol] 0.7 mg/dL Normal 0.3-1.0 [facility] Comment on above: Performed By: #### L [id number] ####[facility] (BEAKER)[address] [place] [address] Calcium [Mass/Vol] 8.9 mg/dL Normal 8.6-10.3 [facility] Comment on above: Performed By: #### L [id number] ####[facility] (BEAKER)[address] [place] [address] Chloride [Moles/Vol] 106 mmol/L Normal 98-107 [facility] Comment on above: Performed By: #### L [id number] ####[facility] (BEAKER)[address] [place] [address] CO2 [Moles/Vol] 30 mmol/L Normal 21-31 [facility] Comment on above: Performed By: #### L [id number] ####[facility] [place] [address] Creatinine [Mass/Vol] 0.88 mg/dL Normal 0.60-1.20 [facility] Comment on above: Performed By: #### L [id number] ####[facility] ([facility])[address] [place] [address] GLOMERULAR FILTRATION RATE ML/MIN/1.73 SQ M.PREDICTED 67.2 mL/min/1.73m*2 Normal >60.0 [facility] Comment on above: Result Comment: The [facility]???s estimated glomerular filtration rate (eGFR) will no longer include consideration of race in its calculation. The National Kidney Foundation???s eGFR Task Force developed new recommendations for [...] disproportionately affect any one group of individuals. Performed By: #### L [id number] ####[facility] [place] [address] Glucose [Mass/Vol] 127 mg/dL High 70-100 [facility] Comment on above: Performed By: #### L [id number] ####[facility] (BEAKER)[address] [place] [address] Potassium [Moles/Vol] 3.8 mmol/L Normal 3.5-5.1 [facility] Comment on above: Performed By: #### L [id number] ####[facility] [place] [address] Protein [Mass/Vol] 5.7 g/dL Low 6.0-8.3 [facility] Comment on above: Performed By: #### L [id number] ####[facility] ([facility])[address] [place] [address] Sodium [Moles/Vol] 143 mmol/L Normal 136-145 [facility] Comment on above: Performed By: #### L [id number] ####[facility] ([facility])[address] [place] [address] Urea nitrogen [Mass/Vol] 34 mg/dL High 7-25 [facility] Comment on above: Performed By: #### L [id number] ####[facility] ([facility])[address] [place] [address] UREA NITROGEN/CREATININE (MASS RATIO) IN SER/PLAS 38.6 [facility] Comment on above: Performed By: #### L [id number] ####[facility] ([facility])[address] [place] [address] HIGH SENSITIVITY TROPONIN Io n 03-15-2025 HS TROPONIN I (NG/L) 3616 ng/L Critically high <15 [facility] Comment on above: Performed By: #### L [id number] ####[facility] ([facility])[address] [place] [address] MAGNESIUMon 03-15-2025 Magnesium [Mass/Vol] 2.4 mg/dL Normal 1.9-2.7 [facility] Comment on above: Performed By: #### L [id number] ####[facility] ([facility])[address] [place] [address] NURSNOTEon 03-15-2025 NURSNOTE Normal [facility] NURSNOTE Normal [facility] NURSNOTE Normal [facility] PHOSPHORUSon 03-15-2025 Magnesium [Mass/Vol] 3.1 mg/dL Normal 2.5-5.0 [facility] Comment on above: Performed By: #### L [id number] ####[facility] ([facility])[address] [place] [address] T4, FREEon 03-15-2025 THYROXINE (T4) FREE (NG/DL) IN SER/PLAS 0.86 ng/dL Normal 0.71-1.85 [facility] Comment on above: Performed By: #### L [id number] ####[facility] ([facility])[address] [place] [address] TSH3 REFLEX TO FT4on 025 THYROTROPIN (MIU/L) IN SER/PLAS BY DETECTION LIMIT <= 0.05 MIU/L 0.34 mIU/L Normal 0.34-5.60 [facility] Comment on above: Performed By: #### L [id number] ####[facility] ([facility])[place] [address] 30on 03-14-2025 30 Normal [facility] ANESon 03-14-2025 ANES Normal [facility] ANTI-XA (HEPARIN LEVEL)on HEPARIN UNFRACTIONATED (U/ML) IN PPP BY CHROMOGENIC METHOD 0.57 IU/mL Normal 0.3-0.7 [facility] Comment on above: Order Comment: Check anti-Xa level every 6 hours while on heparin infusion, or per protocol. Result Comment: Wingate roxaban and Apixaban will interfere with the anti Xa assay used to monitor UFH and LMWH. Performed By: #### L [id number] ####[facility] ([facility])[address] [place] [address] HEPARIN UNFRACTIONATED (U/ML) IN PPP BY CHROMOGENIC METHOD 0.65 IU/mL Normal 0.3-0.7 [facility] Comment on above: Order Comment: Check anti-Xa level every 6 hours while on heparin infusion, or per protocol. Result Comment: Wingate roxaban and Apixaban will interfere with the anti Xa assay used to monitor UFH and LMWH. Performed By: #### L [id number] ####[facility] ([facility])[address] [place] [address] CBC WITH AUTO DIFFERENTIALon 03-14-2025 Basophils (Bld) [#/Vol] 0.01 10*3/uL Normal 0.00-0.20 [facility] Comment on above: Performed By: #### L [id number] ####[facility] (BEAKER)[address] [place] [address] Basophils/100 WBC (Bld) 0.1 % Normal 0.0-1.0 [facility] Comment on above: Performed By: #### L [id number] ####[facility] (BEAKER)[address] [place] [address] Eosinophils (Bld) [#/Vol] 0.00 10*3/uL Normal 0.00-0.50 [facility] Comment on above: Performed By: #### L [id number] ####[facility] (BEAKER)[address] [place] [address] Eosinophils/100 WBC (Bld) 0.0 % Normal 0.0-6.0 [facility] Comment on above: Performed By: #### L [id number] ####[facility] (BEAKER)[address] [place] [address] Erythrocyte distribution width (RBC) [Ratio] 14.0 % Normal 11.5-15.0 [facility] Comment on above: Performed By: #### L [id number] ####[facility] (BEAKER)[address] [place] [address] ERYTHROCYTE MEAN CORPUSCULAR HEMOGLOBIN CONCENTRATION (G/DL) BY AUTOMATED 32.3 g/dL Normal 32.0-35.0 [facility] Comment on above: Performed By: #### L [id number] ####[facility] (BEAKER)[address] [place] [address] Hematocrit (Bld) [Volume fraction] 36.2 % Normal 36.0-45.0 [facility] Comment on above: Performed By: #### L [id number] ####[facility] (BEAKER)[address] [place] [address] Hemoglobin (Bld) [Mass/Vol] 11.7 g/dL Low 12.0-15.0 [facility] Comment on above: Performed By: #### L [id number] ####[facility] [place] [address] Immature granulocytes (Bld) [#/Vol] 0.07 10*3/uL Normal 0.00-0.20 [facility] Comment on above: Performed By: #### L [id number] ####[facility] [place] [address] Immature granulocytes/100 WBC (Bld) 0.5 % Normal 0.0-1.0 [facility] Comment on above: Performed By: #### L [id number] ####[facility] CENTER)[address] [place] [address] Lymphocytes (Bld) [#/Vol] 0.43 10*3/uL Low 1.20-4.00 [facility] Comment on above: Performed By: #### L [id number] ####[facility] ([facility] [place] [address] Lymphocytes/100 WBC (Bld) 3.3 % Low 20.0-45.0 [facility] Comment on above: Performed By: #### L [id number] ####[facility] ([facility] [place] [address] MCH (RBC) [Entitic mass] 30.7 pg Normal 27.0-33.0 [facility] Comment on above: Performed By: #### L [id number] ####[facility] (BEAKER)[address] [place] [address] MCV (RBC) [Entitic vol] 95.0 fL Normal 82.0-98.0 [facility] Comment on above: Performed By: #### L [id number] ####[facility] (BEAKER)[address] [place] [address] Monocytes (Bld) [#/Vol] 0.51 10*3/uL Normal 0.10-1.00 [facility] Comment on above: Performed By: #### L [id number] ####[facility] (BEAKER)[address] [address] Monocytes/100 WBC (Bld) 3.9 % Low 5.0-12.0 [facility] Comment on above: Performed By: #### L [id number] ####[facility] ([facility])[address] [address] Neutrophils (Bld) [#/Vol] 12.06 10*3/uL High 1.60-7.60 [facility] Comment on above: Performed By: #### L [id number] ####[facility] (BEAKER)[address] [address] Neutrophils/100 WBC (Bld) 92.2 % High 40.0-72.0 [facility] Comment on above: Performed By: #### L [id number] ####[facility] [address] NRBC (PER 100 WBCS) BY AUTOMATED COUNT 0.0 % Normal 0 [facility] Comment on above: Performed By: #### L [id number] ####[facility] ([facility])[address] [address] PLATELETS (10*3/UL) IN BLOOD AUTOMATED COUNT 165 10*3/uL Normal 150-400 [facility] Comment on above: Performed By: #### L [id number] ####[facility] (BEAKER)[address] [address] RBC (Bld) [#/Vol] 3.81 10*6/uL Normal 3.80-5.00 [facility] Comment on above: Performed By: #### L [id number] ####[facility] (BEAKER)[address] [address] WBC (Bld) [#/Vol] 13.08 10*3/uL High 4.00-10.60 [facility] Comment on above: Performed By: #### L [id number] ####[facility] (BEAKER)[address] [place] [address] COMPREHENSIVE METABOLIC PANE Alex 03-14-2025 Albumin [Mass/Vol] 3.6 g/dL Normal 3.5-5.7 [facility] Comment on above: Performed By: #### L [id number] ####[facility] (BEAKER)[address] [place] [address] ALP [Catalytic activity/Vol] 39 U/L Normal 34-104 [facility] Comment on above: Performed By: #### L [id number] ####[facility] (BEAKER)[address] [place] [address] ALT [Catalytic activity/Vol] 13 U/L Normal 7-52 [facility] Comment on above: Performed By: #### L [id number] ####[facility] (BEAKER)[address] [place] [address] Anion gap [Moles/Vol] 12 mmol/L Normal 7-20 [facility] Comment on above: Performed By: #### L [id number] ####[facility] (BEAKER)[address] [place] [address] AST [Catalytic activity/Vol] 30 U/L Normal 13-39 [facility] Comment on above: Performed By: #### L [id number] ####[facility] (BEAKER)[address] [place] [address] Bilirubin [Mass/Vol] 0.4 mg/dL Normal 0.3-1.0 [facility] Comment on above: Performed By: #### L [id number] ####[facility] (BEAKER)[address] [place] [address] Calcium [Mass/Vol] 8.8 mg/dL Normal 8.6-10.3 [facility] Comment on above: Performed By: #### L [id number] ####[facility] (BEAKER)[address] [place] [address] Chloride [Moles/Vol] 109 mmol/L High 98-107 [facility] Comment on above: Performed By: #### L [id number] ####[facility] [place] [address] CO2 [Moles/Vol] 26 mmol/L Normal 21-31 [facility] Comment on above: Performed By: #### L [id number] ####[facility] ([facility])[address] [place] [address] Creatinine [Mass/Vol] 1.03 mg/dL Normal 0.60-1.20 [facility] Comment on above: Performed By: #### L [id number] ####[facility] ([facility])[address] [place] [address] GLOMERULAR FILTRATION RATE ML/MIN/1.73 SQ M.PREDICTED 55.7 mL/min/1.73m*2 Low >60.0 [facility] Comment on above: Result Comment: The [facility]???s estimated glomerular filtration rate (eGFR) will no longer include consideration of race in its calculation. The National Kidney Foundation???s eGFR Task Force developed new recommendations for [...] disproportionately affect any one group of individuals. Performed By: #### L [id number] ####[facility] ([facility] [place] [address] Glucose [Mass/Vol] 132 mg/dL High 70-100 [facility] Comment on above: Performed By: #### L [id number] ####[facility] [place] [address] Potassium [Moles/Vol] 3.7 mmol/L Normal 3.5-5.1 [facility] Comment on above: Performed By: #### L [id number] ####[facility] ([facility] [place] [address] Protein [Mass/Vol] 5.6 g/dL Low 6.0-8.3 [facility] Comment on above: Performed By: #### L [id number] ####[facility] ([facility])[address] [place] [address] Sodium [Moles/Vol] 143 mmol/L Normal 136-145 [facility] Comment on above: Performed By: #### L [id number] ####[facility] ([facility])[address] [place] [address] Urea nitrogen [Mass/Vol] 35 mg/dL High 7-25 [facility] Comment on above: Performed By: #### L [id number] ####[facility] ([facility])[address] [address] UREA NITROGEN/CREATININE (MASS RATIO) IN SER/PLAS 34.0 Normal [facility] Comment on above: Performed By: #### L [id number] ####[facility] ([facility])[address] [place] [address] CONSULTon 03-14-2025 CONSULT Normal [facility] HPon 03-14-2025 HP H&P reviewed. The adam willis was examined and there are no changes to the H&P. Normal [facility] LACTIC ACID WITH 4 HOUR REFL EXon 03-14-2025 LACTATE (MMOL/L) IN SER/PLAS 1.9 mmol/L Normal 0.5-2.2 [facility] Comment on above: Performed By: #### L [id number] ####[facility] [place] [address] LACTATE (MMOL/L) IN SER/PLAS 1.0 mmol/L Normal 0.5-2.2 [facility] Comment on above: Performed By: #### L [id number] ####[facility] [place] [address] LACTATE (MMOL/L) IN SER/PLAS 1.1 mmol/L Normal 0.5-2.2 [facility] Comment on above: Performed By: #### L [id number] ####[facility] (BEAKER)[address] [place] [address] LIPID PANELon 03-14-2025 CHOL/HDL 4.1 mg/dL Normal [facility] Comment on above: Performed By: #### L [id number] ####[facility] (BEAKER)[address] [place] [address] Cholesterol [Mass/Vol] 173 mg/dL Normal 120-200 [facility] Comment on above: Performed By: #### L [id number] ####[facility] [facility] [place] [address] Magnesium [Mass/Vol] 153 mg/dL High <150 [facility] Comment on above: Result Comment: TRIG LYCERIDE REFERENCE RANGE:20 YEARS AND OLDER CARDIOVASCULAR RISKLESS THAN 150 mg/dL LOW [id number] TO 199 mg/dL BORDERLINE [id number] mg/dL AND GREATER HIGH RISK Performed By: #### L [id number] ####[facility] ([facility])[address] [facility] [place] [address] Magnesium [Mass/Vol] 100 mg/dL Normal 0-160 [facility] Comment on above: Performed By: #### L [id number] ####[facility] [facility] [place] [address] Magnesium [Mass/Vol] 42 mg/dL Normal 23-92 [facility] Comment on above: Performed By: #### L [id number] ####[facility] ([facility])[address] [place] [address] NON HDL CHOL. (LDL+VLDL) 131 Normal [facility] Comment on above: Performed By: #### L [id number] ####[facility] (BEAKER)[address] [facility] [place] [address] TOTAL VLDL-C 31 mg/dL Normal 0-40 [facility] Comment on above: Performed By: #### L [id number] ####[facility] (BEAKER)[address] [facility] [place] [address] MAGNESIUMon 03-14-2025 Magnesium [Mass/Vol] 2.5 mg/dL Normal 1.9-2.7 [facility] Comment on above: Performed By: #### L [id number] ####[facility] ([facility])[address] [place] [address] NURSNOTEon 03-14-2025 NURSNOTE Normal [facility] NURSNOTE Normal [facility] PHOSPHORUSon 03-14-2025 Magnesium [Mass/Vol] 3.2 mg/dL Normal 2.5-5.0 [facility] Comment on above: Performed By: #### L [id number] ####[facility] ([facility])[address] [place] [address] 30on 03-13-2025 30 Normal [facility] ANTI-XA (HEPARIN LEVEL)on HEPARIN UNFRACTIONATED (U/ML) IN PPP BY CHROMOGENIC METHOD 0.77 IU/mL High 0.3-0.7 [facility] Comment on above: Order Comment: Check anti-Xa level every 6 hours while on heparin infusion, or per protocol. Result Comment: Kasey roxaban and Apixaban will interfere with the anti Xa assay used to monitor UFH and LMWH. Performed By: #### L [id number] ####[facility] ([facility])[address] [place] [address] APTTon 03-13-2025 ACTIVATED PARTIAL THROMBOPLASTIN TIME IN PPP BY COAGULATION ASSAY 126.5 Seconds High 25.0-35.0 [facility] Comment on above: Order Comment: Basel ine aPTT before initiating heparin infusion. Result Comment: Clin ical significance of the APTT is questionable in the presence of heparin. Performed By: #### L [id number] ####[facility] ([facility])[address] [place] [address] CBC WITH AUTO DIFFERENTIALon 03-13-2025 Basophils (Bld) [#/Vol] 0.03 10*3/uL Normal 0.00-0.20 [facility] Comment on above: Performed By: #### L [id number] ####[facility] (BEAKER)[address] [place] [address] Basophils/100 WBC (Bld) 0.1 % Normal 0.0-1.0 [facility] Comment on above: Performed By: #### L [id number] ####[facility] (BEAKER)[address] [place] [address] Eosinophils (Bld) [#/Vol] 0.00 10*3/uL Normal 0.00-0.50 [facility] Comment on above: Performed By: #### L [id number] ####[facility] (BEAKER)[address] [place] [address] Eosinophils/100 WBC (Bld) 0.0 % Normal 0.0-6.0 [facility] Comment on above: Performed By: #### L [id number] ####[facility] (BEAKER)[address] [place] [address] Erythrocyte distribution width (RBC) [Ratio] 13.9 % Normal 11.5-15.0 [facility] Comment on above: Performed By: #### L [id number] ####[facility] (BEAKER)[address] [place] [address] ERYTHROCYTE MEAN CORPUSCULAR HEMOGLOBIN CONCENTRATION (G/DL) BY AUTOMATED 32.7 g/dL Normal 32.0-35.0 [facility] Comment on above: Performed By: #### L [id number] ####[facility] (BEAKER)[address] [place] [address] Hematocrit (Bld) [Volume fraction] 38.8 % Normal 36.0-45.0 [facility] Comment on above: Performed By: #### L [id number] ####[facility] (BEAKER)[address] [place] [address] Hemoglobin (Bld) [Mass/Vol] 12.7 g/dL Normal 12.0-15.0 [facility] Comment on above: Performed By: #### L [id number] ####[facility] (BEAKER)[address] [place] [address] Immature granulocytes (Bld) [#/Vol] 0.16 10*3/uL Normal 0.00-0.20 [facility] Comment on above: Performed By: #### L [id number] ####[facility] (BEAKER)[address] [place] [address] Immature granulocytes/100 WBC (Bld) 0.8 % Normal 0.0-1.0 [facility] Comment on above: Performed By: #### L [id number] ####[facility] (BEAKER)[address] [place] [address] Lymphocytes (Bld) [#/Vol] 0.77 10*3/uL Low 1.20-4.00 [facility] Comment on above: Performed By: #### L [id number] ####[facility] (BEAKER)[address] [place] [address] Lymphocytes/100 WBC (Bld) 3.7 % Low 20.0-45.0 [facility] Comment on above: Performed By: #### L [id number] ####[facility] (BEAKER)[address] [place] [address] MCH (RBC) [Entitic mass] 30.9 pg Normal 27.0-33.0 [facility] Comment on above: Performed By: #### L [id number] ####[facility] (BEAKER)[address] [place] [address] MCV (RBC) [Entitic vol] 94.4 fL Normal 82.0-98.0 [facility] Comment on above: Performed By: #### L [id number] ####[facility] (BEAKER)[address] [place] [address] Monocytes (Bld) [#/Vol] 0.57 10*3/uL Normal 0.10-1.00 [facility] Comment on above: Performed By: #### L [id number] ####[facility] (BEAKER)[address] [place] [address] Monocytes/100 WBC (Bld) 2.8 % Low 5.0-12.0 [facility] Comment on above: Performed By: #### L [id number] ####[facility] ([facility])[address] [address] Neutrophils (Bld) [#/Vol] 19.06 10*3/uL High 1.60-7.60 [facility] Comment on above: Performed By: #### L [id number] ####[facility] ([facility])[address] [address] Neutrophils/100 WBC (Bld) 92.6 % High 40.0-72.0 [facility] Comment on above: Performed By: #### L [id number] ####[facility] ([facility])[address] [address] NRBC (PER 100 WBCS) BY AUTOMATED COUNT 0.0 % Normal 0 [facility] Comment on above: Performed By: #### L [id number] ####[facility] ([facility])[address] [place] [address] PLATELETS (10*3/UL) IN BLOOD AUTOMATED COUNT 203 10*3/uL Normal 150-400 [facility] Comment on above: Performed By: #### L [id number] ####[facility] ([facility])[address] [address] RBC (Bld) [#/Vol] 4.11 10*6/uL Normal 3.80-5.00 [facility] Comment on above: Performed By: #### L [id number] ####[facility] ([facility])[address] [address] WBC (Bld) [#/Vol] 20.59 10*3/uL High 4.00-10.60 [facility] Comment on above: Performed By: #### L [id number] ####[facility] [place] [address] COMPREHENSIVE METABOLIC PANE Alex 03-13-2025 Albumin [Mass/Vol] 3.4 g/dL Low 3.5-5.7 [facility] Comment on above: Performed By: #### L [id number] ####[facility] (BEAKER)[address] [place] [address] ALP [Catalytic activity/Vol] 38 U/L Normal 34-104 [facility] Comment on above: Performed By: #### L [id number] ####[facility] (BEAKER)[address] [place] [address] ALT [Catalytic activity/Vol] 15 U/L Normal 7-52 [facility] Comment on above: Performed By: #### L [id number] ####[facility] (BEAKER)[address] [place] [address] Anion gap [Moles/Vol] 13 mmol/L Normal 7-20 [facility] Comment on above: Performed By: #### L [id number] ####[facility] (BEAKER)[address] [place] [address] AST [Catalytic activity/Vol] 39 U/L Normal 13-39 [facility] Comment on above: Performed By: #### L [id number] ####[facility] (BEAKER)[address] [place] [address] Bilirubin [Mass/Vol] 0.8 mg/dL Normal 0.3-1.0 [facility] Comment on above: Performed By: #### L [id number] ####[facility] (BEAKER)[address] [place] [address] Calcium [Mass/Vol] 8.7 mg/dL Normal 8.6-10.3 [facility] Comment on above: Performed By: #### L [id number] ####[facility] (BE[facility]ER)[address] [place] [address] Chloride [Moles/Vol] 106 mmol/L Normal 98-107 [facility] Comment on above: Performed By: #### L [id number] ####[facility] (BEAKER)[address] [place] [address] CO2 [Moles/Vol] 22 mmol/L Normal 21-31 [facility] Comment on above: Performed By: #### L [id number] ####[facility] ([facility])[address] [place] [address] Creatinine [Mass/Vol] 1.36 mg/dL High 0.60-1.20 [facility] Comment on above: Performed By: #### L [id number] ####[facility] ([facility])[address] [place] [address] GLOMERULAR FILTRATION RATE ML/MIN/1.73 SQ M.PREDICTED 39.9 mL/min/1.73m*2 Low >60.0 [facility] Comment on above: Result Comment: The [facility]???s estimated glomerular filtration rate (eGFR) will no longer include consideration of race in its calculation. The National Kidney Foundation???s eGFR Task Force developed new recommendations for [...] disproportionately affect any one group of individuals. Performed By: #### L [id number] ####[facility] ([facility])[address] [place] [address] Glucose [Mass/Vol] 149 mg/dL High 70-100 [facility] Comment on above: Performed By: #### L [id number] ####[facility] ([facility])[address] [place] [address] Potassium [Moles/Vol] 4.0 mmol/L Normal 3.5-5.1 [facility] Comment on above: Performed By: #### L [id number] ####[facility] ([facility])[address] [place] [address] Protein [Mass/Vol] 5.4 g/dL Low 6.0-8.3 [facility] Comment on above: Performed By: #### L [id number] ####[facility] ([facility])[address] [place] [address] Sodium [Moles/Vol] 137 mmol/L Normal 136-145 [facility] Comment on above: Performed By: #### L [id number] ####[facility] ([facility])[address] [place] [address] Urea nitrogen [Mass/Vol] 36 mg/dL High 7-25 [facility] Comment on above: Performed By: #### L [id number] ####[facility] ([facility])[address] [place] [address] UREA NITROGEN/CREATININE (MASS RATIO) IN SER/PLAS 26.5 Normal [facility] Comment on above: Performed By: #### L [id number] ####[facility] ([facility])[address] [place] [address] CONSULTon 03-13-2025 CONSULT Normal [facility] HIGH SENSITIVITY TROPONIN Io n 03-13-2025 HS TROPONIN I (NG/L) 5772 ng/L Critically high <15 [facility] Comment on above: Performed By: #### L [id number] ####[facility] ([facility])[address] [place] [address] HPon 03-13-2025 HP Normal [facility] LACTIC ACID WITH 4 HOUR REFL EXon 03-13-2025 LACTATE (MMOL/L) IN SER/PLAS 1.5 mmol/L Normal 0.5-2.2 [facility] Comment on above: Performed By: #### L [id number] ####[facility] ([facility])[address] [place] [address] LACTATE (MMOL/L) IN SER/PLAS 1.3 mmol/L Normal 0.5-2.2 [facility] Comment on above: Performed By: #### L [id number] ####[facility] ([facility])[address] [place] [address] LACTATE (MMOL/L) IN SER/PLAS 1.6 mmol/L Normal 0.5-2.2 [facility] Comment on above: Performed By: #### L [id number] ####[facility] ([facility])[address] [place] [address] LACTATE (MMOL/L) IN SER/PLAS 1.5 mmol/L Normal 0.5-2.2 [facility] Comment on above: Performed By: #### L [id number] ####[facility] ([facility])[address] [place] [address] LACTATE (MMOL/L) IN SER/PLAS 1.6 mmol/L Normal 0.5-2.2 [facility] Comment on above: Performed By: #### L [id number] ####[facility] ([facility])[address] [facility] [place] [address] MAGNESIUMon 03-13-2025 Magnesium [Mass/Vol] 2.5 mg/dL Normal 1.9-2.7 [facility] Comment on above: Performed By: #### L [id number] ####[facility] ([facility])[address] [place] [address] PHOSPHORUSon 03-13-2025 Magnesium [Mass/Vol] 4.7 mg/dL Normal 2.5-5.0 [facility] Comment on above: Performed By: #### L [id number] ####[facility] ([facility])[address] [place] [address] POCT GLUCOSE METER UNSOLICIT ED RESULTSon 03-13-2025 Glucose [Mass/Vol] 147 mg/dL High 70-105 [facility] Comment on above: Order Comment: Waive d Testing in the ED is performed under the ED CLIA certificate #[id number]. Result Comment: [email or web address] Performed By: #### L [id number] ####[facility] ([facility])[address] [place] [address] 30on 03-12-2025 30 Normal [facility] B-TYPE NATRIURETIC PEPTIDEon 03-12-2025 Natriuretic peptide B (Bld) [Mass/Vol] 662 pg/mL High 0-100 [facility] Comment on above: Performed By: #### L [id number] ####[facility] (BEAKER)[address] [place] [address] BASIC METABOLIC PANELon 05-1 Anion gap [Moles/Vol] 16 mmol/L Normal 7-20 [facility] Comment on above: Performed By: #### L [id number] ####[facility] (BEAKER)[address] [place] [address] Calcium [Mass/Vol] 9.0 mg/dL Normal 8.6-10.3 [facility] Comment on above: Performed By: #### L [id number] ####[facility] (BEAKER)[address] [place] [address] Chloride [Moles/Vol] 106 mmol/L Normal 98-107 [facility] Comment on above: Performed By: #### L [id number] ####[facility] [place] [address] CO2 [Moles/Vol] 22 mmol/L Normal 21-31 [facility] Comment on above: Performed By: #### L [id number] ####[facility] (BEAKER)[address] [place] [address] Creatinine [Mass/Vol] 1.42 mg/dL High 0.60-1.20 [facility] Comment on above: Performed By: #### L [id number] ####[facility] [place] [address] GLOMERULAR FILTRATION RATE ML/MIN/1.73 SQ M.PREDICTED 37.9 mL/min/1.73m*2 Low >60.0 [facility] Comment on above: Result Comment: The [facility]???s estimated glomerular filtration rate (eGFR) will no longer include consideration of race in its calculation. The National Kidney Foundation???s eGFR Task Force developed new recommendations for [...] disproportionately affect any one group of individuals. Performed By: #### L [id number] ####[facility] ([facility])[address] [place] [address] Glucose [Mass/Vol] 149 mg/dL High 70-100 [facility] Comment on above: Performed By: #### L [id number] ####[facility] ([facility])[address] [place] [address] Potassium [Moles/Vol] 4.8 mmol/L Normal 3.5-5.1 [facility] Comment on above: Performed By: #### L [id number] ####[facility] ([facility])[address] [place] [address] Sodium [Moles/Vol] 139 mmol/L Normal 136-145 [facility] Comment on above: Performed By: #### L [id number] ####[facility] ([facility])[address] [facility] [place] [address] Urea nitrogen [Mass/Vol] 30 mg/dL High 7-25 [facility] Comment on above: Performed By: #### L [id number] ####[facility] ([facility])[address] [place] [address] UREA NITROGEN/CREATININE (MASS RATIO) IN SER/PLAS 21.1 [facility] Comment on above: Performed By: #### L [id number] ####[facility] ([facility])[address] [facility] [place] [address] BLOOD CULTUREon 03-12-2025 Bacteria identified Cx Nom (Bld) No growth at 5 days [facility] Comment on above: Order Comment: From a different site than #1. Performed By: #### L [id number] ####[facility] ([facility])[address] [facility] [place] [address] BODY FLUID CELL DIFFERENTIAL on 03-12-2025 BASOPHILS TOTAL PER COUNTED LEUKOCYTES IN BODY FLUID BY MANUAL COUNT [facility] Comment on above: Order Comment: Diffe rential performed on cytospin Performed By: #### L [id number] ####[facility] (BEAKER)[address] [place] [address] CELLS COUNTED TOTAL (#) IN BODY FLUID 100 [facility] Comment on above: Order Comment: Diffe rential performed on cytospin Performed By: #### L [id number] ####[facility] (BEAKER)[address] [place] [address] EOSINOPHILS TOTAL PER COUNTED LEUKOCYTES IN BODY FLUID BY MANUAL COUNT [facility] Comment on above: Order Comment: Diffe rential performed on cytospin Performed By: #### L [id number] ####[facility] (BEAKER)[address] [place] [address] LYMPHOCYTES TOTAL PER COUNTED LEUKOCYTES IN BODY FLUID BY MANUAL COUNT 1 [facility] Comment on above: Order Comment: Diffe rential performed on cytospin Performed By: #### L [id number] ####[facility] (BEAKER)[address] [place] [address] MESOTHELIAL CELLS TOTAL PER COUNTED LEUKOCYTES IN BODY FLUID BY MANUAL COUN [facility] Comment on above: Order Comment: Diffe rential performed on cytospin Performed By: #### L [id number] ####[facility] (BEAKER)[address] [place] [address] MONOCYTES+MACROPHAGES TOTAL PER COUNTED LEUKOCYTES IN BODY FLUID BY MANUAL 9 [facility] Comment on above: Order Comment: Diffe rential performed on cytospin Performed By: #### L [id number] ####[facility] (BEAKER)[address] [place] [address] NEUTROPHILS TOTAL PER COUNTED LEUKOCYTES IN BODY FLUID BY MANUAL COUNT 90 [facility] Comment on above: Order Comment: Diffe rential performed on cytospin Performed By: #### L [id number] ####[facility] ([facility]ER)[address] [place] [address] OTHER CELLS BODY FLUID (MANUAL) [facility] Comment on above: Order Comment: Diffe rential performed on cytospin Performed By: #### L [id number] ####[facility] (BEAKER)[address] [place] [address] CBC WITH AUTO DIFFERENTIALon 03-12-2025 Basophils (Bld) [#/Vol] 0.02 10*3/uL Normal 0.00-0.20 [facility] Comment on above: Performed By: #### L [id number] ####[facility] [place] [address] Basophils/100 WBC (Bld) 0.2 % Normal 0.0-1.0 [facility] Comment on above: Performed By: #### L [id number] ####[facility] [place] [address] Eosinophils (Bld) [#/Vol] 0.00 10*3/uL Normal 0.00-0.50 [facility] Comment on above: Performed By: #### L [id number] ####[facility] ([facility])[address] [place] [address] Eosinophils/100 WBC (Bld) 0.0 % Normal 0.0-6.0 [facility] Comment on above: Performed By: #### L [id number] ####[facility] ([facility])[address] [place] [address] Erythrocyte distribution width (RBC) [Ratio] 14.0 % Normal 11.5-15.0 [facility] Comment on above: Performed By: #### L [id number] ####[facility] ([facility])[address] [place] [address] ERYTHROCYTE MEAN CORPUSCULAR HEMOGLOBIN CONCENTRATION (G/DL) BY AUTOMATED 33.1 g/dL Normal 32.0-35.0 [facility] Comment on above: Performed By: #### L [id number] ####[facility] [place] [address] Hematocrit (Bld) [Volume fraction] 35.6 % Low 36.0-45.0 [facility] Comment on above: Performed By: #### L [id number] ####[facility] (BEAKER)[address] [place] [address] Hemoglobin (Bld) [Mass/Vol] 11.8 g/dL Low 12.0-15.0 [facility] Comment on above: Performed By: #### L [id number] ####[facility] (BEAKER)[address] [place] [address] Immature granulocytes (Bld) [#/Vol] 0.05 10*3/uL Normal 0.00-0.20 [facility] Comment on above: Performed By: #### L [id number] ####[facility] ([facility])[address] [place] [address] Immature granulocytes/100 WBC (Bld) 0.4 % Normal 0.0-1.0 [facility] Comment on above: Performed By: #### L [id number] ####[facility] ([facility])[address] [place] [address] Lymphocytes (Bld) [#/Vol] 0.61 10*3/uL Low 1.20-4.00 [facility] Comment on above: Performed By: #### L [id number] ####[facility] ([facility])[address] [place] [address] Lymphocytes/100 WBC (Bld) 4.6 % Low 20.0-45.0 [facility] Comment on above: Performed By: #### L [id number] ####[facility] (BEAKER)[address] [place] [address] MCH (RBC) [Entitic mass] 31.1 pg Normal 27.0-33.0 [facility] Comment on above: Performed By: #### L [id number] ####[facility] (BEAKER)[address] [place] [address] MCV (RBC) [Entitic vol] 93.7 fL Normal 82.0-98.0 [facility] Comment on above: Performed By: #### L [id number] ####[facility] (BEAKER)[address] [place] [address] Monocytes (Bld) [#/Vol] 0.58 10*3/uL Normal 0.10-1.00 [facility] Comment on above: Performed By: #### L [id number] ####[facility] [place] [address] Monocytes/100 WBC (Bld) 4.4 % Low 5.0-12.0 [facility] Comment on above: Performed By: #### L [id number] ####[facility] [place] [address] Neutrophils (Bld) [#/Vol] 12.06 10*3/uL High 1.60-7.60 [facility] Comment on above: Performed By: #### L [id number] ####[facility] (BEAKER)[address] [place] [address] Neutrophils/100 WBC (Bld) 90.4 % High 40.0-72.0 [facility] Comment on above: Performed By: #### L [id number] ####[facility] ([facility])[address] [place] [address] NRBC (PER 100 WBCS) BY AUTOMATED COUNT 0.0 % Normal 0 [facility] Comment on above: Performed By: #### L [id number] ####[facility] (BEAKER)[address] [place] [address] PLATELETS (10*3/UL) IN BLOOD AUTOMATED COUNT 165 10*3/uL Normal 150-400 [facility] Comment on above: Performed By: #### L [id number] ####[facility] [place] [address] RBC (Bld) [#/Vol] 3.80 10*6/uL Normal 3.80-5.00 [facility] Comment on above: Performed By: #### L [id number] ####[facility] (BEAKER)[address] [place] [address] WBC (Bld) [#/Vol] 13.32 10*3/uL High 4.00-10.60 [facility] Comment on above: Performed By: #### L [id number] ####[facility] (BEAKER)[address] [place] [address] Basophils (Bld) [#/Vol] 0.06 10*3/uL Normal 0.00-0.20 [facility] Comment on above: Performed By: #### L [id number] ####[facility] (BEAKER)[address] [place] [address] Basophils/100 WBC (Bld) 0.3 % Normal 0.0-1.0 [facility] Comment on above: Performed By: #### L [id number] ####[facility] (BEAKER)[address] [place] [address] Eosinophils (Bld) [#/Vol] 0.08 10*3/uL Normal 0.00-0.50 [facility] Comment on above: Performed By: #### L [id number] ####[facility] (BEAKER)[address] [place] [address] Eosinophils/100 WBC (Bld) 0.4 % Normal 0.0-6.0 [facility] Comment on above: Performed By: #### L [id number] ####[facility] (BEAKER)[address] [place] [address] Erythrocyte distribution width (RBC) [Ratio] 13.6 % Normal 11.5-15.0 [facility] Comment on above: Performed By: #### L [id number] ####[facility] (BEAKER)[address] [place] [address] ERYTHROCYTE MEAN CORPUSCULAR HEMOGLOBIN CONCENTRATION (G/DL) BY AUTOMATED 33.0 g/dL Normal 32.0-35.0 [facility] Comment on above: Performed By: #### L [id number] ####[facility] (BEAKER)[address] [place] [address] Hematocrit (Bld) [Volume fraction] 43.3 % Normal 36.0-45.0 [facility] Comment on above: Performed By: #### L [id number] ####[facility] (BEAKER)[address] [place] [address] Hemoglobin (Bld) [Mass/Vol] 14.3 g/dL Normal 12.0-15.0 [facility] Comment on above: Performed By: #### L [id number] ####[facility] (BEAKER)[address] [place] [address] Immature granulocytes (Bld) [#/Vol] 0.11 10*3/uL Normal 0.00-0.20 [facility] Comment on above: Performed By: #### L [id number] ####[facility] ([facility])[address] [place] [address] Immature granulocytes/100 WBC (Bld) 0.5 % Normal 0.0-1.0 [facility] Comment on above: Performed By: #### L [id number] ####[facility] (BEAKER)[address] [place] [address] Lymphocytes (Bld) [#/Vol] 0.49 10*3/uL Low 1.20-4.00 [facility] Comment on above: Performed By: #### L [id number] ####[facility] (BEAKER)[address] [place] [address] Lymphocytes/100 WBC (Bld) 2.1 % Low 20.0-45.0 [facility] Comment on above: Performed By: #### L [id number] ####[facility] (BEAKER)[address] [place] [address] MCH (RBC) [Entitic mass] 31.0 pg Normal 27.0-33.0 [facility] Comment on above: Performed By: #### L [id number] ####[facility] (BEAKER)[address] [place] [address] MCV (RBC) [Entitic vol] 93.9 fL Normal 82.0-98.0 [facility] Comment on above: Performed By: #### L [id number] ####[facility] (BEAKER)[address] [place] [address] Monocytes (Bld) [#/Vol] 0.84 10*3/uL Normal 0.10-1.00 [facility] Comment on above: Performed By: #### L [id number] ####[facility] (BEAKER)[address] [place] [address] Monocytes/100 WBC (Bld) 3.7 % Low 5.0-12.0 [facility] Comment on above: Performed By: #### L [id number] ####[facility] (BEAKER)[address] [place] [address] Neutrophils (Bld) [#/Vol] 21.23 10*3/uL High 1.60-7.60 [facility] Comment on above: Performed By: #### L [id number] ####[facility] (BEAKER)[address] [place] [address] Neutrophils/100 WBC (Bld) 93.0 % High 40.0-72.0 [facility] Comment on above: Performed By: #### L [id number] ####[facility] (BEAKER)[address] [place] [address] NRBC (PER 100 WBCS) BY AUTOMATED COUNT 0.0 % Normal 0 [facility] Comment on above: Performed By: #### L [id number] ####[facility] (BEAKER)[address] [place] [address] PLATELETS (10*3/UL) IN BLOOD AUTOMATED COUNT 229 10*3/uL Normal 150-400 [facility] Comment on above: Performed By: #### L [id number] ####[facility] (BEAKER)[address] [place] [address] RBC (Bld) [#/Vol] 4.61 10*6/uL Normal 3.80-5.00 [facility] Comment on above: Performed By: #### L [id number] ####[facility] (BEAKER)[address] [place] [address] WBC (Bld) [#/Vol] 22.81 10*3/uL High 4.00-10.60 [facility] Comment on above: Performed By: #### L [id number] ####[facility] (BEAKER)[address] [place] [address] COMPREHENSIVE METABOLIC PANE Alex 03-12-2025 Albumin [Mass/Vol] 3.6 g/dL Normal 3.5-5.7 [facility] Comment on above: Performed By: #### L [id number] ####[facility] [place] [address] ALP [Catalytic activity/Vol] 47 U/L Normal 34-104 [facility] Comment on above: Performed By: #### L [id number] ####[facility] (BEAKER)[address] [place] [address] ALT [Catalytic activity/Vol] 16 U/L Normal 7-52 [facility] Comment on above: Performed By: #### L [id number] ####[facility] [place] [address] Anion gap [Moles/Vol] 17 mmol/L Normal 7-20 [facility] Comment on above: Performed By: #### L [id number] ####[facility] (BEAKER)[address] [place] [address] AST [Catalytic activity/Vol] 44 U/L High 13-39 [facility] Comment on above: Performed By: #### L [id number] ####[facility] [place] [address] Bilirubin [Mass/Vol] 0.6 mg/dL Normal 0.3-1.0 [facility] Comment on above: Performed By: #### L [id number] ####[facility] (BEAKER)[address] [place] [address] Calcium [Mass/Vol] 9.2 mg/dL Normal 8.6-10.3 [facility] Comment on above: Performed By: #### L [id number] ####[facility] (BEAKER)[address] [place] [address] Chloride [Moles/Vol] 108 mmol/L High 98-107 [facility] Comment on above: Performed By: #### L [id number] ####[facility] (BEAKER)[address] [place] [address] CO2 [Moles/Vol] 20 mmol/L Low 21-31 [facility] Comment on above: Performed By: #### L [id number] ####[facility] ([facility])[address] [place] [address] Creatinine [Mass/Vol] 1.31 mg/dL High 0.60-1.20 [facility] Comment on above: Performed By: #### L [id number] ####[facility] ([facility])[address] [place] [address] GLOMERULAR FILTRATION RATE ML/MIN/1.73 SQ M.PREDICTED 41.7 mL/min/1.73m*2 Low >60.0 [facility] Comment on above: Result Comment: The [facility]???s estimated glomerular filtration rate (eGFR) will no longer include consideration of race in its calculation. The National Kidney Foundation???s eGFR Task Force developed new recommendations for [...] disproportionately affect any one group of individuals. Performed By: #### L [id number] ####[facility] [place] [address] Glucose [Mass/Vol] 203 mg/dL High 70-100 [facility] Comment on above: Performed By: #### L [id number] ####[facility] (BEAKER)[address] [place] [address] Potassium [Moles/Vol] 4.7 mmol/L Normal 3.5-5.1 [facility] Comment on above: Performed By: #### L [id number] ####[facility] ([facility])[address] [facility] [place] [address] Protein [Mass/Vol] 5.6 g/dL Low 6.0-8.3 [facility] Comment on above: Performed By: #### L [id number] ####[facility] ([facility])[address] [place] [address] Sodium [Moles/Vol] 140 mmol/L Normal 136-145 [facility] Comment on above: Performed By: #### L [id number] ####[facility] ([facility])[address] [place] [address] Urea nitrogen [Mass/Vol] 23 mg/dL Normal 7-25 [facility] Comment on above: Performed By: #### L [id number] ####[facility] ([facility])[address] [place] [address] UREA NITROGEN/CREATININE (MASS RATIO) IN SER/PLAS 17.6 Normal [facility] Comment on above: Performed By: #### L [id number] ####[facility] ([facility])[address] [place] [address] CT CHEST WO IV CONTRASTon CT CHEST WO IV CONTRAST Invalid Interpretation Code [facility] HIGH SENSITIVITY TROPONIN Io n 03-12-2025 HS TROPONIN I (NG/L) 8267 ng/L Critically high <15 [facility] Comment on above: Performed By: #### L [id number] ####[facility] [place] [address] HS TROPONIN I (NG/L) 7749 ng/L Critically high <15 [facility] Comment on above: Performed By: #### L [id number] ####[facility] [facility] [place] [address] HS TROPONIN I (NG/L) 7895 ng/L Critically high <15 [facility] Comment on above: Performed By: #### L [id number] ####[facility] (BEAKER)[address] [place] [address] HS TROPONIN I (NG/L) [address]2910 ng/L Critically high <15 [facility] Comment on above: Performed By: #### L [id number] ####[facility] (BEAKER)[address] [place] [address] HPon 03-12-2025 HP Normal [facility] HYPERSENSITIVITY PNEUMONITIS PANEL 103-12-2025 A. PULLULANS ABS Not detected Normal None Detected [facility] Comment on above: Performed By: #### L [id number] ####[facility] ([facility] [place] [address] ASPERGILLUS FUMIGATUS #1 Not detected Normal None Detected [facility] Comment on above: Performed By: #### L [id number] ####[facility] ([facility])[address] [place] [address] ASPERGILLUS FUMIGATUS #6 Not detected Normal None Detected [facility] Comment on above: Performed By: #### L [id number] ####[facility] ([facility])[address] [place] [address] M FAENI AB, PRECIPITIN Not detected Normal None Detected [facility] Comment on above: Result Comment: Test ing includes antibodies directed at Aureobasidium pullulans,Aspergillus fumigatus #1, Aspergillus fumigatus #6, Micropolysporafaeni, and [place] Serum.Performed By: [id number] [place] [id number] Director: Ryley Cardenas MD, PhDCLIA Number: [id number] Performed By: #### L [id number] ####[[facility] ([facility])[address] [place] [address] PIGEON SERUM ABS Not detected Normal None Detected [facility] Comment on above: Performed By: #### L [id number] ####[facility] ([facility])[address] [place] [address] HYPERSENSITIVITY PNEUMONITIS PANEL 203-12-2025 ASPERGILLUS FLAVUS AB, PRECIPITIN Not detected Normal None Detected [facility] [facility] Comment on above: Performed By: #### L [id number] ####[facility] ([facility] [place] [address] ASPERGILLUS FUMIGATUS #2 Not detected Normal None Detected [facility] Comment on above: Performed By: #### L [id number] ####[facility] ([facility] [place] [address] ASPERGILLUS FUMIGATUS #3 Not detected Normal None Detected [facility] Comment on above: Performed By: #### L [id number] ####[facility] ([facility])[address] [place] [address] S VIRIDIS AB, PRECIPITIN Not detected Normal None Detected [facility] Comment on above: Performed By: #### L [id number] ####[facility] ([facility] [place] [address] T. CANDIDUS AB, PRECIPITIN Not detected Normal None Detected [facility] Comment on above: Result Comment: Test ing includes antibodies directed at Aspergillus flavus,Aspergillus fumigatus #2, Aspergillus fumigatus #3,Saccharomonospora viridis, and Thermoactinomyces candidus.Performed By: [facility] [place], [place] [address]Nwaqhhoblf Director: Ryley Cardenas MD, PhDCLIA Number: [id number] Performed By: #### L [id number] ####[facility] ([facility])[address] [place] [address] IMMUNOGLOBULIN Arturo IMMUNOGLOBIN E <1 Normal 0-100 [facility] Comment on above: Result Comment: Test Performed by [facility] [address] [place] [address] - Released 03/13/2025 13:36 Performed By: #### L [id number] ####light [facility] [id number] [place] [address] LACTIC ACID WITH 4 HOUR REFL EXon 03-12-2025 LACTATE (MMOL/L) IN SER/PLAS 2.0 mmol/L Normal 0.5-2.2 [facility] Comment on above: Performed By: #### L [id number] ####[facility] ([facility]ER)[address] [place] [address] LACTATE (MMOL/L) IN SER/PLAS 3.1 mmol/L Critically high 0.5-2.2 [facility] Comment on above: Result Comment: M-[place] EVIOUS CRITICAL RESULTPrevious result verified on 03/12/2025 1855 on specimen/case [facility]-[id number] called with component Lactate blood venous for procedure Lactic acid with 4 hour reflex with value 3.2 mmol/L. Performed By: #### L [id number] ####[facility] (BEAKER)[address] [place] [address] LACTATE (MMOL/L) IN SER/PLAS 3.2 mmol/L Critically high 0.5-2.2 [facility] Comment on above: Result Comment: M-[place] EVIOUS CRITICAL RESULT Performed By: #### L [id number] ####[facility] ([facility] [place] [address] LACTATE (MMOL/L) IN SER/PLAS 3.3 mmol/L Critically high 0.5-2.2 [facility] Comment on above: Result Comment: [place] EVIOUS CRITICAL RESULTPrevious result verified on 03/12/2025 1315 on specimen/case [facility]-[id number] called with component Lactate blood venous for procedure Lactic acid with 4 hour reflex with value 3.4 mmol/L. Performed By: #### L [id number] ####[facility] ([facility])[address] [place] [address] LACTATE (MMOL/L) IN SER/PLAS 3.4 mmol/L Critically high 0.5-2.2 [facility] Comment on above: Order Comment: Previ ous Critical Result. Performed By: #### L [id number] ####[facility] (BEAKER)[address] [place] [address] LACTATE (MMOL/L) IN SER/PLAS 4.4 mmol/L Critically high 0.5-2.2 [facility] Comment on above: Result Comment: Prev ious result verified on 03/12/2025 0819 on specimen/case [id number] called with component Lactate blood venous for procedure Lactic acid with 4 hour reflex with value 3.3 mmol/L. Performed By: #### L [id number] ####[facility] ([facility])[address] [place] [address] LACTATE (MMOL/L) IN SER/PLAS 3.3 mmol/L Critically high 0.5-2.2 [facility] Comment on above: Performed By: #### L [id number] ####[facility] ([facility])[address] [place] [address] LEGIONELLA ANTIGEN, URINEon 03-12-2025 LEGIONELLA AG, UR Negative Normal NEG [facility] Comment on above: Result Comment: L. p neumophila serogroup 1 antigen not detected.A negative result does not exclude infection with Leginella pnemophila serogroup 1 nor does it rule out other microbial-caused respiratory infections of disease caused by other serogroups of Legionella pneumophila.Test Performed by [facility] [address] [place] [id number] - Released 03/12/2025 15:36 Performed By: #### L [id number] ####[facility] [id number] [place] [address] MAGNESIUMon 03-12-2025 Magnesium [Mass/Vol] 2.6 mg/dL Normal 1.9-2.7 [facility] Comment on above: Performed By: #### L [id number] ####[facility] ([facility])[address] [place] [address] Magnesium [Mass/Vol] 2.5 mg/dL Normal 1.9-2.7 [facility] Comment on above: Performed By: #### L [id number] ####[facility] ([facility])[address] [place] [address] MRSA/MSSA DNA NASALon 2024 MRSA DNA Negative Normal Negative [facility] Comment on above: Order Comment: Testi ng methodology is an automated qualitative in vitro diagnostic test for the directdetection and differentiation of Staphylococcus aureus (SA) DNA and methicillin-resistant Staphylococcus aureus (MRSA) DNA from nasal swabs in patients at risk for nasal colonization. The test utilizes real-time polymerase chain reaction (PCR) for the amplification of MRSA/SA DNA and fluorogenic target-specific hybridization probes for the detection of the amplified DNA. A negative result does not preclude nasal colonization. Performed By: #### L [id number] ####[facility] ([facility])[address] [place] [address] MSSA DNA Negative Normal Negative [facility] Comment on above: Order Comment: Testi ng methodology is an automated qualitative in vitro diagnostic test for the directdetection and differentiation of Staphylococcus aureus (SA) DNA and methicillin-resistant Staphylococcus aureus (MRSA) DNA from nasal swabs in patients at risk for nasal colonization. The test utilizes real-time polymerase chain reaction (PCR) for the amplification of MRSA/SA DNA and fluorogenic target-specific hybridization probes for the detection of the amplified DNA. A negative result does not preclude nasal colonization. Performed By: #### L [id number] ####[facility] ([facility])[address] [place] [address] NURSNOTEon 03-12-2025 THERESE Elder RN called report Normal [facility] PATHOLOGY REVIEWon PATHOLOGY REVIEW Reviewed. Normal [facility] Comment on above: Result Comment: Elec tronically signed by Deshawn Toure MD on 03/13/25 at 7:34 AM. Performed By: #### L [id number] ####[facility] ([facility])[address] [place] [address] PHOSPHORUSon 03-12-2025 Magnesium [Mass/Vol] 4.2 mg/dL Normal 2.5-5.0 [facility] Comment on above: Performed By: #### L [id number] ####[facility] ([facility])[address] [place] [address] Magnesium [Mass/Vol] 4.4 mg/dL Normal 2.5-5.0 [facility] Comment on above: Performed By: #### L [id number] ####[facility] ([facility])[address] [facility] [employer] [employer] [place] [place] [address] POCT GLUCOSE METER UNSOLICIT ED RESULTSon 03-12-2025 Glucose [Mass/Vol] 150 mg/dL High 70-105 [facility] Comment on above: Order Comment: Waive d Testing in the ED is performed under the ED CLIA certificate #[id number]. Result Comment: vabu [id number] Performed By: #### L [id number] ####[facility] ([facility])[address]AR[place]Y[address]elligent [place] [address] Glucose [Mass/Vol] 176 mg/dL High 70-105 [facility] Comment on above: Order Comment: Waive d Testing in the ED is performed under the ED CLIA certificate #[id number]. Result Comment: mmol den3 Performed By: #### L [id number] ####[facility] ([facility])[address] [facility] [place] [address] Glucose [Mass/Vol] 215 mg/dL High 70-105 [facility] Comment on above: Order Comment: Waive d Testing in the ED is performed under the ED CLIA certificate #[id number]. Result Comment: cgif for3 Performed By: #### L [id number] ####[facility] ([facility])[address] [place] [address] PROCALCITONIN TESTon 025 PROCALCITONIN IN BLOOD 15.02 ng/mL Critically high 0.00-0.10 [facility] Comment on above: Result Comment: Chela tor triglycerides while patient is on propofol Performed By: #### L [id number] ####[facility] ([facility])[address] [place] [address] RESPIRATORY CULTUREon 2024 Bacteria identified Cx Nom (Unsp spec) No growth at 5 days Normal [facility] Comment on above: Performed By: #### L [id number] ####[facility] ([facility])[address] [place] [address] GRAM STAIN RESULT Normal [facility] Comment on above: Result Comment: Many Polymorphonuclear leukocytesNo organisms seen Performed By: #### L [id number] ####[facility] ([facility])[address] [facility] [place] [address] RESPIRATORY VIRUS PCR PANELo n 03-12-2025 ADENOVIRUS DETECTION BY PCR Not detected Normal Not Detected [facility] Comment on above: Order Comment: Testi ng methodology is a multiplexed nucleic acid test intended for the simultaneous qualitative detection and differentiation of nucleic acids from multiple viral and bacterial respiratory organisms in nasopharyngeal swabs (CAR ATTENDANT). Performed By: #### L [id number] ####[facility] ([facility])[address] [facility] [place] [address] B. PARAPERTUSSIS DNA Not detected Normal Not Detected [facility] Comment on above: Order Comment: Testi ng methodology is a multiplexed nucleic acid test intended for the simultaneous qualitative detection and differentiation of nucleic acids from multiple viral and bacterial respiratory organisms in nasopharyngeal swabs (CAR ATTENDANT). Performed By: #### L [id number] ####[facility] ([facility])[address] [place] [address] BORDETELLA PERTUSSIS DNA PRESENCE IN UNSPECIFIED SPECIMEN BY [place]* Not detected Normal Not Detected [facility] Comment on above: Order Comment: Testi ng methodology is a multiplexed nucleic acid test intended for the simultaneous qualitative detection and differentiation of nucleic acids from multiple viral and bacterial respiratory organisms in nasopharyngeal swabs (CAR ATTENDANT). Performed By: #### L [id number] ####[facility] ([facility])[address] [place] [address] CHLAMYDOPHILA PNEUMONIAE Not detected Normal Not Detected [facility] Comment on above: Order Comment: Testi ng methodology is a multiplexed nucleic acid test intended for the simultaneous qualitative detection and differentiation of nucleic acids from multiple viral and bacterial respiratory organisms in nasopharyngeal swabs (CAR ATTENDANT). Performed By: #### L [id number] ####[facility] ([facility])[address] [facility] [place] [address] CORONAVIRUS [id number] Not detected Normal Not Detected [facility] Comment on above: Order Comment: Testi ng methodology is a multiplexed nucleic acid test intended for the simultaneous qualitative detection and differentiation of nucleic acids from multiple viral and bacterial respiratory organisms in nasopharyngeal swabs (CAR ATTENDANT). Performed By: #### L [id number] ####[facility] ([facility])[address] [place] [address] CORONAVIRUS HKU1 Not detected Normal Not Detected [facility] Comment on above: Order Comment: Testi ng methodology is a multiplexed nucleic acid test intended for the simultaneous qualitative detection and differentiation of nucleic acids from multiple viral and bacterial respiratory organisms in nasopharyngeal swabs (CAR ATTENDANT). Performed By: #### L [id number] ####[facility] ([facility])[address] [place] [address] CORONAVIRUS NL63 Not detected Normal Not Detected [facility] Comment on above: Order Comment: Testi ng methodology is a multiplexed nucleic acid test intended for the simultaneous qualitative detection and differentiation of nucleic acids from multiple viral and bacterial respiratory organisms in nasopharyngeal swabs (CAR ATTENDANT). Performed By: #### L [id number] ####[facility] ([facility])[address] [place] [address] CORONAVIRUS OC43 Not detected Normal Not Detected [facility] Comment on above: Order Comment: Testi ng methodology is a multiplexed nucleic acid test intended for the simultaneous qualitative detection and differentiation of nucleic acids from multiple viral and bacterial respiratory organisms in nasopharyngeal swabs (CAR ATTENDANT). Performed By: #### L [id number] ####[facility] ([facility])[address] [place] [address] HUMAN METAPNEUMOVIRUS Detected Abnormal Not Detected [facility] Comment on above: Order Comment: Testi ng methodology is a multiplexed nucleic acid test intended for the simultaneous qualitative detection and differentiation of nucleic acids from multiple viral and bacterial respiratory organisms in nasopharyngeal swabs (CAR ATTENDANT). Performed By: #### L [id number] ####[facility] ([facility])[address] [place] [address] HUMAN RHINOVIRUS+ENTEROVIRU S Not detected Normal Not Detected [facility] Comment on above: Order Comment: Testi ng methodology is a multiplexed nucleic acid test intended for the simultaneous qualitative detection and differentiation of nucleic acids from multiple viral and bacterial respiratory organisms in nasopharyngeal swabs (CAR ATTENDANT). Performed By: #### L [id number] ####[facility] ([facility])[address] [place] [address] INFLUENZA A Not detected Normal Not Detected [facility] Comment on above: Order Comment: Testi ng methodology is a multiplexed nucleic acid test intended for the simultaneous qualitative detection and differentiation of nucleic acids from multiple viral and bacterial respiratory organisms in nasopharyngeal swabs (CAR ATTENDANT). Performed By: #### L [id number] ####[facility] ([facility])[address] [place] [address] INFLUENZA B Not detected Normal Not Detected [facility] Comment on above: Order Comment: Testi ng methodology is a multiplexed nucleic acid test intended for the simultaneous qualitative detection and differentiation of nucleic acids from multiple viral and bacterial respiratory organisms in nasopharyngeal swabs (CAR ATTENDANT). Performed By: #### L [id number] ####[facility] ([facility])[address] [place] [address] MYCOPLASMA PNEUMONIAE Not detected Normal Not Detected [facility] Comment on above: Order Comment: Testi ng methodology is a multiplexed nucleic acid test intended for the simultaneous qualitative detection and differentiation of nucleic acids from multiple viral and bacterial respiratory organisms in nasopharyngeal swabs (CAR ATTENDANT). Performed By: #### L [id number] ####[facility] ([facility])[address] [place] [address] PARAINFLUENZA 1 Not detected Normal Not Detected [facility] Comment on above: Order Comment: Testi ng methodology is a multiplexed nucleic acid test intended for the simultaneous qualitative detection and differentiation of nucleic acids from multiple viral and bacterial respiratory organisms in nasopharyngeal swabs (CAR ATTENDANT). Performed By: #### L [id number] ####[facility] ([facility])[address] [place] [address] PARAINFLUENZA 2 Not detected Normal Not Detected [facility] Comment on above: Order Comment: Testi ng methodology is a multiplexed nucleic acid test intended for the simultaneous qualitative detection and differentiation of nucleic acids from multiple viral and bacterial respiratory organisms in nasopharyngeal swabs (CAR ATTENDANT). Performed By: #### L [id number] ####[facility] ([facility])[address] [place] [address] PARAINFLUENZA 3 Not detected Normal Not Detected [facility] Comment on above: Order Comment: Testi ng methodology is a multiplexed nucleic acid test intended for the simultaneous qualitative detection and differentiation of nucleic acids from multiple viral and bacterial respiratory organisms in nasopharyngeal swabs (CAR ATTENDANT). Performed By: #### L [id number] ####[facility] ([facility])[address] [place] [address] PARAINFLUENZA 4 Not detected Normal Not Detected [facility] Comment on above: Order Comment: Testi ng methodology is a multiplexed nucleic acid test intended for the simultaneous qualitative detection and differentiation of nucleic acids from multiple viral and bacterial respiratory organisms in nasopharyngeal swabs (CAR ATTENDANT). Performed By: #### L [id number] ####[facility] ([facility])[address] [place] [address] RESP SYNCYTIAL VIRUS Not detected Normal Not Detected [facility] Comment on above: Order Comment: Testi ng methodology is a multiplexed nucleic acid test intended for the simultaneous qualitative detection and differentiation of nucleic acids from multiple viral and bacterial respiratory organisms in nasopharyngeal swabs (CAR ATTENDANT). Performed By: #### L [id number] ####[facility] ([facility])[address] [place] [address] SARS-CoV-2 (COVID-19) RNA BECKIE+probe Ql (Unsp spec) Not detected Normal Not Detected [facility] Comment on above: Order Comment: Testi ng methodology is a multiplexed nucleic acid test intended for the simultaneous qualitative detection and differentiation of nucleic acids from multiple viral and bacterial respiratory organisms in nasopharyngeal swabs (CAR ATTENDANT). Performed By: #### L [id number] ####[facility] ([facility])[address] [place] [address] STREP PNEUMONIAE ANTIGEN, UR INEon 03-12-2025 STREPTOCOCCUS PNEUMONIAE AG PRESENCE IN URINE Negative Normal Negative [facility] Comment on above: Performed By: #### L [id number] ####[facility] ([facility])[address] [place] [address] TRIGLYCERIDESon 03-12-2025 FASTING? Unknown Normal [facility] Comment on above: Order Comment: Monit or triglycerides while patient is on propofol. Consult Nutrition if greater than 500 mg/dL. Performed By: #### L [id number] ####[facility] ([facility])[address] [place] [address] Magnesium [Mass/Vol] 95 mg/dL Normal <150 [facility] Comment on above: Order Comment: Monit or triglycerides while patient is on propofol. Consult Nutrition if greater than 500 mg/dL. Result Comment: TRIG LYCERIDE REFERENCE RANGE:20 YEARS AND OLDER CARDIOVASCULAR RISKLESS THAN 150 mg/dL LOW [id number] TO 199 mg/dL BORDERLINE [id number] mg/dL AND GREATER HIGH RISK Performed By: #### L [id number] ####[facility] ([facility])[address] [place] [address] URINALYSIS WITH MICROSCOPICo n 03-12-2025 BILIRUBIN, TOTAL PRESENCE IN URINE Negative Normal Negative [facility] Comment on above: Performed By: #### L [id number] ####[facility] ([facility])[address] [place] [address] Clarity (U) Clear Normal Clear [facility] Comment on above: Performed By: #### L [id number] ####[facility] ([facility])[address] [place] [address] Color (U) Yellow Normal Colorless, Yellow, Light-Lewis ow [facility] Comment on above: Performed By: #### L [id number] ####[facility] ([facility])[address] [place] [address] GLUCOSE (MG/DL) IN URINE Normal Normal Normal [facility] Comment on above: Performed By: #### L [id number] ####[facility] ([facility])[address] [place] [address] HEMOGLOBIN PRESENCE IN URINE Moderate Abnormal Negative [facility] Comment on above: Performed By: #### L [id number] ####[facility] ([facility])[address] [place] [address] Ketones Ql (U) Negative Normal Negative [facility] Comment on above: Performed By: #### L [id number] ####[facility] ([facility])[address] [place] [address] LEUKOCYTE ESTERASE PRESENCE IN URINE BY TEST STRIP Negative Normal Negative [facility] Comment on above: Performed By: #### L [id number] ####[facility] ([facility])[address] [place] [address] MUCUS (#/LPF) IN URINE SEDIMENT Occasional Normal None Seen, Occasional , Few [facility] Comment on above: Performed By: #### L [id number] ####[facility] ([facility])[address] [place] [address] NITRITE PRESENCE IN URINE Negative Normal Negative [facility] Comment on above: Performed By: #### L [id number] ####[facility] ([facility])[address] [place] [address] pH (U) 5.5 [pH] Normal 5.0-8.0 [facility] Comment on above: Performed By: #### L [id number] ####[facility] ([facility])[address] [place] [address] Protein (U) [Mass/Vol] Negative Normal Negative [facility] Comment on above: Performed By: #### L [id number] ####[facility] ([facility])[address] [place] [address] RBC (#/HPF) IN URINE SEDIMENT 11-20 Abnormal None Seen, 0-2 [facility] Comment on above: Performed By: #### L [id number] ####[facility] ([facility])[address] [place] [address] Specific gravity (U) [Rel density] >1.050 High 1.010-1.03 0 [facility] Comment on above: Performed By: #### L [id number] ####[facility] ([facility])[address] [place] [address] SQUAMOUS EPITHELIAL CELLS (#/LPF) IN URINE SEDIMENT Occasional Normal None Seen, Occasional , Few [facility] Comment on above: Performed By: #### L [id number] ####[facility] (AKER)[address] [place] [address] UROBILINOGEN (MG/DL) IN URINE Normal Normal Normal [facility] Comment on above: Performed By: #### L [id number] ####[facility] (BEAKER)[address] [place] [address] WBC (LEUKOCYTE) (#/HPF) IN URINE SEDIMENT 3-5 Abnormal None Seen, 0-2 [facility] Comment on above: Performed By: #### L [id number] ####[facility] (BEAKER)[address] [place] [address] No Panel Informationon 01-30 [facility] Type of biopsy: gonsalez ential Informed consent: [...] taken Amount of lidocaine used: 1.0 cc [facility] Complete Pulmonary Function Test Pre/Post Bronchodilator (Spirometry Pre/Post/DLCO/Lung Volumes)Ordered By: Pepito Nguyen on 11-27-2024 FEV1 - Post 1.07 [facility] Work Phone: FEV1 - Pre 1.03 [facility] Work Phone: FEV1 - Predicted 1.95 [facility] Work Phone: FVC - Post 1.63 [facility] Work Phone: FVC - PRE 1.7 [facility] Work Phone: FVC Predicted 2.54 [facility] Work Phone: [facility] Work Phone: Complete Pulmonary Function Test Pre/Post [...] expansion or localized loss of lung volume. [facility] [place] Pepito Quintana MD - 11/27/2024 The FEV1/FVC [...] expansion or localized loss of lung volume. [facility] Work Phone: 1,25-dihydroxyvitamin D3 [Ma ss/Vol]on 10-15-2024 1,25-dihydroxyvitamin D [Mass/Vol] 57.4 pg/mL Normal 19.9-79.3 [facility] Comment on above: Result Comment: INTE RPRETIVE INFORMATION: Vitamin D, 1,25-Dihydroxy This test is primarily indicated during patient evaluation for hypercalcemia and renal failure. A normal result does not rule out Vitamin D deficiency. The recommended test for diagnosing Vitamin D deficiency is Vitamin D 25-hydroxy. Performed By: [facility] [address] [place] [address] Grill Cook: Ryley Cardenas MD, PhD CLIA Number: [id number] Performed By: #### 1 649-3 #### [facility] ([facility]) ([id number]) [address] [place] [address] CBC W Auto Differential pane l (Bld)on 10-15-2024 Basophils (Bld) [#/Vol] 0.04 10*3/uL [facility] Basophils/100 WBC (Bld) 0.5 % 0.0 - 2.0 % [facility] Eosinophils (Bld) [#/Vol] 0.29 10*3/uL [facility] Eosinophils/100 WBC (Bld) 3.9 % 0.0 - 6.0 % [facility] Erythrocyte distribution width (RBC) [Ratio] 12.9 % 11.5 - 14.5 % [facility] Hematocrit (Bld) [Volume fraction] 44.2 % 36.0 - 46.0 % [facility] Hemoglobin (Bld) [Mass/Vol] 14 g/dL 12.0 - 16.0 g/dL [facility] Immature granulocytes (Bld) [#/Vol] 0.03 10*3/uL [facility] Immature granulocytes/100 WBC (Bld) 0.4 % 0.0 - 0.9 % [facility] Comment on above: Immature Granulocyte Count (IG) includes promyelocytes, myelocytes and metamyelocytes but does not include bands. Percent differential counts (%) should be interpreted in the context of the absolute cell counts (cells/UL). Interpretation and review of laboratory results Abnormal [facility] Lymphocytes (Bld) [#/Vol] 1.01 10*3/uL [facility] Lymphocytes/100 WBC (Bld) 13.5 % 13.0 - 44.0 % [facility] MCH (RBC) [Entitic mass] 29.5 pg 26.0 - 34.0 pg [facility] MCHC (RBC) [Mass/Vol] 31.7 g/dL Low 32.0 - 36.0 g/dL [facility] MCV (RBC) [Entitic vol] 93 fL 80 - 100 fL [facility] Monocytes (Bld) [#/Vol] 0.77 10*3/uL [facility] Monocytes/100 WBC (Bld) 10.3 % 2.0 - 10.0 % [facility] Neutrophils (Bld) [#/Vol] 5.36 10*3/uL [facility] Comment on above: Percent differential counts (%) should be interpreted in the context of the absolute cell counts (cells/uL). Neutrophils/100 WBC (Bld) 71.4 % 40.0 - 80.0 % [facility] Nucleated RBC/100 WBC (Bld) [Ratio] 0 % [facility] Platelets (Bld) [#/Vol] 193 10*3/uL [facility] RBC (Bld) [#/Vol] 4.74 10*6/uL [facility] WBC (Bld) [#/Vol] 7.5 10*3/uL [facility] Basophils (Bld) [#/Vol] 0.04 x10*3/uL Normal 0.00-0.10 [facility] Comment on above: Performed By: #### 5 7021-8 #### L[facility] SWIFT (65060) [facility] ([facility]) [address] [place] [address] Basophils/100 WBC (Bld) 0.5 % Normal 0.0-2.0 [facility] Comment on above: Performed By: #### 5 7021-8 #### [facility] (95590) [facility] ([facility]) [address] [place] [address] Eosinophils (Bld) [#/Vol] 0.29 x10*3/uL Normal 0.00-0.40 [facility] Comment on above: Performed By: #### 5 7021-8 #### [facility] SW[facility] (74194) [facility] ([facility]) [address] [place] [address] Eosinophils/100 WBC (Bld) 3.9 % Normal 0.0-6.0 [facility] Comment on above: Performed By: #### 5 7021-8 #### L[facility] SWIFT (41858) [facility] ([facility]) [address] [place] [address] Erythrocyte distribution width (RBC) [Ratio] 12.9 % Normal 11.5-14.5 [facility] Comment on above: Performed By: #### 5 7021-8 #### [facility] SW[facility] (53874) [facility] ([facility]) [address] [place] [address] Hematocrit (Bld) [Volume fraction] 44.2 % Normal 36.0-46.0 [facility] Comment on above: Performed By: #### 5 7021-8 #### [facility] SWIFT (76460) [facility] ([facility]) [address] [place] [address] Hemoglobin (Bld) [Mass/Vol] 14.0 g/dL Normal 12.0-16.0 [facility] Comment on above: Performed By: #### 5 7021-8 #### [facility] (13109) [facility] ([facility]) [address] [place] [address] Immature granulocytes (Bld) [#/Vol] 0.03 x10*3/uL Normal 0.00-0.50 [facility] Comment on above: Performed By: #### 5 7021-8 #### [facility] SWIFT (33423) [facility] ([facility]) [address] [place] [address] Immature granulocytes/100 WBC (Bld) 0.4 % Normal 0.0-0.9 [facility] Comment on above: Result Comment: Bina ture Granulocyte Count (IG) includes promyelocytes, myelocytes and metamyelocytes but does not include bands. Percent differential counts (%) should be interpreted in the context of the absolute cell counts (cells/UL). Performed By: #### 5 7021-8 #### [facility]IFT (64996) [facility] ([facility]) [address] [place] [address] Lymphocytes (Bld) [#/Vol] 1.01 x10*3/uL Normal 0.80-3.00 [facility] Comment on above: Performed By: #### 5 7021-8 #### L[facility] SWIFT (70859) [facility] ([facility]) [address] [place] [address] Lymphocytes/100 WBC (Bld) 13.5 % Normal 13.0-44.0 [facility] Comment on above: Performed By: #### 5 7021-8 #### LOW SWIFT (60391) [facility] ([facility]) [address] [place] [address] MCH (RBC) [Entitic mass] 29.5 pg Normal 26.0-34.0 [facility] Comment on above: Performed By: #### 5 7021-8 #### LOW SWIFT (76871) [facility] ([facility]) [address] [place] [address] MCHC (RBC) [Mass/Vol] 31.7 g/dL Low 32.0-36.0 [facility] Comment on above: Performed By: #### 5 7021-8 #### LOW SWIFT (23760) [facility] ([facility]) [address] [place] [address] MCV (RBC) [Entitic vol] 93 fL Normal 80-100 [facility] Comment on above: Performed By: #### 5 7021-8 #### LOW SWIFT (37673) [facility] ([facility]) [address] [place] [address] Monocytes (Bld) [#/Vol] 0.77 x10*3/uL Normal 0.05-0.80 [facility] Comment on above: Performed By: #### 5 7021-8 #### L[facility] SWIFT (28121) [facility] ([facility]) [address] [place] [address] Monocytes/100 WBC (Bld) 10.3 % Normal 2.0-10.0 [facility] Comment on above: Performed By: #### 5 7021-8 #### LOW SWIFT (46199) [facility] ([facility]) [address] [place] [address] Neutrophils (Bld) [#/Vol] 5.36 x10*3/uL Normal 1.60-5.50 [facility] Comment on above: Result Comment: Perc ent differential counts (%) should be interpreted in the context of the absolute cell counts (cells/uL). Performed By: #### 5 7021-8 #### LOW SWIFT (35152) [facility] ([facility]) [address] [place] [address] Neutrophils/100 WBC (Bld) 71.4 % Normal 40.0-80.0 [facility] Comment on above: Performed By: #### 5 7021-8 #### LOW SWIFT (16910) [facility] ([facility]) [address] [place] [address] Nucleated RBC/100 WBC (Bld) [Ratio] 0.0 /100 WBCs Normal 0.0-0.0 [facility] Comment on above: Performed By: #### 5 7021-8 #### LOW SWIFT (08435) [facility] ([facility]) [address] [place] [address] Platelets (Bld) [#/Vol] 193 x10*3/uL Normal 150-450 [facility] Comment on above: Performed By: #### 5 7021-8 #### LOW SWIFT (06164) [facility] ([facility]) [address] [place] [address] RBC (Bld) [#/Vol] 4.74 x10*6/uL Normal 4.00-5.20 [facility] Comment on above: Performed By: #### 5 7021-8 #### LOW SWIFT (37579) [facility] ([facility]) [address] [place] [address] WBC (Bld) [#/Vol] 7.5 x10*3/uL Normal 4.4-11.3 [facility] Comment on above: Performed By: #### 5 7021-8 #### LOW SWIFT (41884) [facility] ([facility]) [address] [place] [address] Comprehensive metabolic 2000 panelon 10-15-2024 Albumin BCP dye [Mass/Vol] 4 g/dL 3.4 - 5.0 g/dL [facility] ALP [Catalytic activity/Vol] 49 U/L 33 - 136 U/L [facility] ALT With P-5'-P [Catalytic activity/Vol] 11 U/L 7 - 45 U/L [facility] Comment on above: Patients treated wit h Sulfasalazine may generate falsely decreased results for ALT. Anion gap [Moles/Vol] 12 mmol/L 10 - 2 0 mmol/L [facility] AST With P-5'-P [Catalytic activity/Vol] 14 U/L 9 - 39 U/L [facility] Bilirubin [Mass/Vol] 1.5 mg/dL High 0.0 - 1 .2 mg/dL [facility] Calcium [Mass/Vol] 9.7 mg/dL 8.6 - 10. 3 mg/dL [facility] Chloride [Moles/Vol] 106 mmol/L 98 - 10 7 mmol/L [facility] CO2 [Moles/Vol] 28 mmol/L 21 - 32 mmol/L [facility] Creatinine [Mass/Vol] 1.09 mg/dL High 0.50 - 1.05 mg/dL [facility] GFR/1.73 sq M.predicted among non-blacks MDRD (S/P/Bld) [Vol rate/Area] 52 mL/min/{1.73_m2} Low - PINF [facility] Comment on above: Calculations of karla mated GFR are performed using the 2020 CKD-EPI Study Refit equation without the race variable for the IDMS-Traceable creatinine methods. https://jasn.asnjournals.org/content//ASN.365657 2959 Glucose [Mass/Vol] 81 mg/dL 74 - 99 mg/dL [facility] Interpretation and review of laboratory results Abnormal [facility] Potassium [Moles/Vol] 4.3 mmol/L 3.5 - 5.3 mmol/L [facility] Protein [Mass/Vol] 5.8 g/dL Low 6.4 - 8.2 g/dL [facility] Sodium [Moles/Vol] 142 mmol/L 136 - 145 mmol/L [facility] Urea nitrogen [Mass/Vol] 17 mg/dL 6 - 23 mg/dL [facility] Albumin BCP dye [Mass/Vol] 4.0 g/dL Normal 3.4-5.0 [facility] Comment on above: Performed By: #### 2 4323-8 #### LOW SWIFT (14730) [facility] ([facility]) [address] [place] [address] ALP [Catalytic activity/Vol] 49 U/L Normal 33-136 [facility] Comment on above: Performed By: #### 2 4323-8 #### LOW SWIFT (78637) [facility] ([facility]) [address] [place] [address] ALT With P-5'-P [Catalytic activity/Vol] 11 U/L Normal 7-45 [facility] Comment on above: Result Comment: Shabnam ents treated with Sulfasalazine may generate falsely decreased results for ALT. Performed By: #### 2 4323-8 #### L[facility] SWIFT (76261) [facility] ([facility]) [address] [place] [address] Anion gap [Moles/Vol] 12 mmol/L Normal 10-20 [facility] Comment on above: Performed By: #### 2 4323-8 #### LOW SWIFT (50894) [facility] ([facility]) [address] [place] [address] AST With P-5'-P [Catalytic activity/Vol] 14 U/L Normal 9-39 [facility] Comment on above: Performed By: #### 2 4323-8 #### LOW SWIFT (15502) [facility] ([facility]) [address] [place] [address] Bilirubin [Mass/Vol] 1.5 mg/dL High 0.0-1.2 [facility] Comment on above: Performed By: #### 2 4323-8 #### LOW SWIFT (01321) [facility] ([facility]) [address] [place] [address] Calcium [Mass/Vol] 9.7 mg/dL Normal 8.6-10.3 [facility] Comment on above: Performed By: #### 2 4323-8 #### LOW SWIFT (45152) [facility] ([facility]) [address] [place] [address] Chloride [Moles/Vol] 106 mmol/L Normal 98-107 [facility] Comment on above: Performed By: #### 2 4323-8 #### LOW SWIFT (04465) [facility] ([facility]) [address] [place] [address] CO2 [Moles/Vol] 28 mmol/L Normal 21-32 [facility] Comment on above: Performed By: #### 2 4323-8 #### LOW SWIFT (22710) [facility] ([facility]) [address] [place] [address] Creatinine [Mass/Vol] 1.09 mg/dL High 0.50-1.05 [facility] Comment on above: Performed By: #### 2 4323-8 #### LOW SWIFT (87683) [facility] ([facility]) [address] [place] [address] Glomerular filtration rate/1.73 sq M.predicted 52 mL/min/1.73m*2 Low >60 [facility] Comment on above: Result Comment: Calc ulations of estimated GFR are performed using the 2020 CKD-EPI Study Refit equation without the race variable for the IDMS-Traceable creatinine methods. https://jasn.asnjournals.org/content//ASN.294815 7267 Performed By: #### 2 4323-8 #### LOW SWIFT (16749) [facility] ([facility]) [address] [place] [address] Glucose [Mass/Vol] 81 mg/dL Normal 74-99 [facility] Comment on above: Performed By: #### 2 4323-8 #### LOW SWIFT (78553) [facility] ([facility]) [address] [place] [address] Potassium [Moles/Vol] 4.3 mmol/L Normal 3.5-5.3 [facility] Comment on above: Performed By: #### 2 4323-8 #### LOW SWIFT (72522) [facility] ([facility]) [address] [place] [address] Protein [Mass/Vol] 5.8 g/dL Low 6.4-8.2 [facility] Comment on above: Performed By: #### 2 4323-8 #### LOW SWIFT (02440) [facility] ([facility]) [address] [place] [address] Sodium [Moles/Vol] 142 mmol/L Normal 136-145 [facility] Comment on above: Performed By: #### 2 4323-8 #### LOW SWIFT (46444) [facility] ([facility]) [address] [place] [address] Urea nitrogen [Mass/Vol] 17 mg/dL Normal 6-23 [facility] Comment on above: Performed By: #### 2 4323-8 #### LOW SWIFT (92820) [facility] ([facility]) [address] [place] [address] ECG 12 Leadon 09-09-2024 Normal sinus rhythm, normal EKG. compared to the EKG from January 2023, inferior T wave abnormality has resolved [facility] Work Phone: No Panel Informationon 09-05 [facility] Estimated glomerular filtrat ion rate (GFR) non- Americanon 07-04-2024 GFR/1.73 sq M.predicted among non-blacks MDRD (S/P/Bld) [Vol rate/Area] 46 mL/min/{1.73_m2} Low >=60 [facility] - Chemistry and C hemistry - challengeon 07-04-2024 Creatinine [Mass/Vol] 1.14 mg/dL High 0.55-1.02 [facility] GFR/1.73 sq M.predicted MDRD (S/P/Bld) [Vol rate/Area] 56 mL/min/{1.73_m2} Low >=60 [facility] Body fluid differential cell countOrdered By: Dayanna Lobo on 01-22-2024 Differential panel (Body fld) 44 % [facility] Comment on above: The reference interv al and other method performance specifications have not been established for this body fluid. The test result must be integrated into the clinical context for interpretation. Cell Count/Diff, Fluidon Appearance, Fluid Hazy Normal [facility] Comment on above: Order Comment: Body Fluid Source: Other (Name in the Site) Body Fluid Site: RML Result Comment: The reference interval and other method performance specifications have not been established for this body fluid. The test result must be integrated into the clinical context for interpretation. Performed By: #### F LCCDIFF #### [facility] [address] Order Comment: Body Fluid Source: Other (Name in the Site) Body Fluid Site: Rul Color, Fluid Straw Normal [facility] Comment on above: Order Comment: Body Fluid Source: Other (Name in the Site) Body Fluid Site: RML Result Comment: The reference interval and other method performance specifications have not been established for this body fluid. The test result must be integrated into the clinical context for interpretation. Performed By: #### F LCCDIFF #### [address] Order Comment: Body Fluid Source: Other (Name in the Site) Body Fluid Site: Rul Color, Fluid Supernatant Straw Normal [facility] Comment on above: Order Comment: Body Fluid Source: Other (Name in the Site) Body Fluid Site: RML Result Comment: The reference interval and other method performance specifications have not been established for this body fluid. The test result must be integrated into the clinical context for interpretation. Performed By: #### F LCCDIFF #### [address] Order Comment: Body Fluid Source: Other (Name in the Site) Body Fluid Site: Rul Eosinophils, Fluid 2 /100{WBC} Normal 0-3 [facility] Comment on above: Order Comment: Body Fluid Source: Other (Name in the Site) Body Fluid Site: RML Result Comment: PERF ORMED BY: [place] [address] PATHOLOGIST CODE AND TEST CLERK CRISTHIAN REYEZ M.D. Performed By: #### F LCCDIFF #### [address] Order Comment: Body Fluid Source: Other (Name in the Site) Body Fluid Site: Rul Lymphocytes, Fluid 13 % Normal [facility] Comment on above: Order Comment: Body Fluid Source: Other (Name in the Site) Body Fluid Site: RML Result Comment: The reference interval and other method performance specifications have not been established for this body fluid. The test result must be integrated into the clinical context for interpretation. Performed By: #### F LCCDIFF #### [address] Lymphocytes, Fluid 11 % Normal [facility] Comment on above: Order Comment: Body Fluid Source: Other (Name in the Site) Body Fluid Site: Rul Result Comment: The reference interval and other method performance specifications have not been established for this body fluid. The test result must be integrated into the clinical context for interpretation. Performed By: #### F LCCDIFF #### [address] [place] [address] [place] Monocytes/Macrophages , Fluid 44 % Normal [facility] Comment on above: Order Comment: Body Fluid Source: Other (Name in the Site) Body Fluid Site: RML Result Comment: The reference interval and other method performance specifications have not been established for this body fluid. The test result must be integrated into the clinical context for interpretation. Performed By: #### F LCCDIFF #### [address] Monocytes/Macrophages , Fluid 45 % [facility] Comment on above: Order Comment: Body Fluid Source: Other (Name in the Site) Body Fluid Site: Rul Result Comment: The reference interval and other method performance specifications have not been established for this body fluid. The test result must be integrated into the clinical context for interpretation. Performed By: #### F LCCDIFF #### [address] Neutrophil, Fluid 41 % Normal [facility] Comment on above: Order Comment: Body Fluid Source: Other (Name in the Site) Body Fluid Site: RML Result Comment: The reference interval and other method performance specifications have not been established for this body fluid. The test result must be integrated into the clinical context for interpretation. Performed By: #### F LCCDIFF #### [address] Neutrophil, Fluid 42 % Normal [facility] Comment on above: Order Comment: Body Fluid Source: Other (Name in the Site) Body Fluid Site: Rul Result Comment: The reference interval and other method performance specifications have not been established for this body fluid. The test result must be integrated into the clinical context for interpretation. Performed By: #### F LCCDIFF #### [place] [id number] [facility] RBC, Fluid 2329 Normal [facility] Comment on above: Order Comment: Body Fluid Source: Other (Name in the Site) Body Fluid Site: RML Result Comment: The reference interval and other method performance specifications have not been established for this body fluid. The test result must be integrated into the clinical context for interpretation. Performed By: #### F LCCDIFF #### [facility] [address] RBC, Fluid 2399 [facility] Comment on above: Order Comment: Body Fluid Source: Other (Name in the Site) Body Fluid Site: Rul Result Comment: The reference interval and other method performance specifications have not been established for this body fluid. The test result must be integrated into the clinical context for interpretation. Performed By: #### F LCCDIFF #### [facility] [address] TNC, Body Fluid 163 [facility] Comment on above: Order Comment: Body Fluid Source: Other (Name in the Site) Body Fluid Site: RML Result Comment: The reference interval and other method performance specifications have not been established for this body fluid. The test result must be integrated into the clinical context for interpretation. Performed By: #### F LCCDIFF #### [facility] [address] TNC, Body Fluid 352 [facility] Comment on above: Order Comment: Body Fluid Source: Other (Name in the Site) Body Fluid Site: Rul Result Comment: The reference interval and other method performance specifications have not been established for this body fluid. The test result must be integrated into the clinical context for interpretation. Performed By: #### F LCCDIFF #### [facility] [address] [place] [address] Cells Counted Total [#] in B fredy fluidOrdered By: Dayanna Lobo on 01-22-2024 Cells Counted Total (Body fld) [#] 163 mm^3 [facility] Comment on above: The reference interv al and other method performance specifications have not been established for this body fluid. The test result must be integrated into the clinical context for interpretation. Color of Spun Body fluidOrde red By: Dayanna Lobo on 01-22-2024 Color (Spun body fld) Straw [facility] Comment on above: The reference interv al and other method performance specifications have not been established for this body fluid. The test result must be integrated into the clinical context for interpretation. Determination of appearance of body fluidOrdered By: Dayanna Lobo on 01-22-2024 Appearance (Body fld) Hazy [facility] Comment on above: The reference interv al and other method performance specifications have not been established for this body fluid. The test result must be integrated into the clinical context for interpretation. Erythrocytes [#/volume] in B fredy fluid by Automated countOrdered By: Dayanna Lobo on 01-22-2024 RBC Auto (Body fld) [#/Vol] 2329 mm^3 [facility] Comment on above: The reference interv al and other method performance specifications have not been established for this body fluid. The test result must be integrated into the clinical context for interpretation. Evaluation of color of body fluidOrdered By: Dayanna Lobo on 01-22-2024 Color (Body fld) Straw [facility] Comment on above: The reference interv al and other method performance specifications have not been established for this body fluid. The test result must be integrated into the clinical context for interpretation. Alex 01-22-2024 L Specimen: BC Received: 01/23/24 Status: CLAUDIA Love Num: [id number] Spec Type: Cytology Subm Dr: Dayanna Lobo DO Tissues: A BRONWASH (BRONCH) B BRONWASH (R UPPER LOBE) C BRONWASH (R MIDDLE LOBE) Procedures: HE/6, Gross/Micro L4/3, Cyto Prepstain/3, PAPSTN/3 Age/ Patient Sex Location Account Attending Physician ArshPilo M 78/F LABELL [id number] Dayanna Lobo DO SPEC NUM: [id number] RECD: 01/23/24 STATUS: CLAUDIA LOVE NUM: [id number] MARK: 01/22/24- SUBM DR: Dayanna Lobo DO ENTERED: 01/23/[address]: Tessa,Lab SPEC TYPE: Cytology DEPT: JASON CORONEL ENTERED BY: [id number] RECV BY: [id number] ORDERED: HE/6, Gross/Micro L4/3, Cyto Prepstain/3, PAPSTN/3 [...] (CC/nh) Specimen: [id number] Received: 01/23/24 Status: CLAUDIA Love Num: [id number] Spec Type: Cytology Subm Dr: Dayanna Lobo DO Tissues: A BRONWASH (BRONCH) B BRONWASH (R UPPER LOBE) C BRONWASH (R MIDDLE LOBE) Procedures: HE/6, Gross/Micro L4/3, Cyto Prepstain/3, PAPSTN/3 Patient: Pilo Gregory [id number] (Continued) Specimen: BC Received: 01/23/24 (Continued) Gross Description (Continued) Signed (signature on file) Nitesh Chambers MD 01/24/24 1406 Specimen: Received: 01/23/24 Status: CLAUDIA Love Num: [id number] Spec Type: Cytology Subm Dr: Dayanna Lobo DO Tissues: A BRONWASH (BRONCH) B BRONWASH (R UPPER LOBE) C BRONWASH (R MIDDLE LOBE) Procedures: HE/6, Gross/Micro L4/3, Cyto Prepstain/3, PAPSTN/3 Patient: Pilo Gregory [id number] (Continued) Specimen: BC Received: 01/23/24 (Continued) Gross Description (Continued) C. Received fresh labeled with the patient's name, date of and R upper lobe lavage is 5 ml rico cloudy unfixed fluid. 1 Thin Prep slides are prepared. 1 cell blocks are prepared. (CC/nh) Specimen: [id number] Received: 01/23/24 Status: CLAUDIA Love Num: [id number] Spec Type: Cytology Subm Dr: Dayanna Lobo DO Tissues: A BRONWASH (BRONCH) B BRONWASH (R UPPER LOBE) C BRONWASH (R MIDDLE LOBE) Procedures: HE/6, Gross/Micro L4/3, Cyto Prepstain/3, PAPSTN/3 Patient: Pilo Gregory [id number] (Continued) Signed (signature on file) Nitesh Chambers MD 01/24/24 1406 Normal [facility] Manual body fluid eosinophil s/100 leukocytesOrdered By: Dayanna Lobo on 01-22-2024 Eosinophils/100 WBC Manual cnt (Body fld) 2 /100{WBC} 0-3 [facility] Manual body fluid lymphocyte s/100 leukocytesOrdered By: Dayanna Lobo on 01-22-2024 Lymphocytes/100 WBC Manual cnt (Body fld) 13 % [facility] Comment on above: The reference interv al and other method performance specifications have not been established for this body fluid. The test result must be integrated into the clinical context for interpretation. Neutrophils/100 WBC Manual c nt (Body fld)Ordered By: Dayanna Lobo on 01-22-2024 Neutrophils/100 WBC (Body fld) 41 % [facility] Comment on above: The reference interv al and other method performance specifications have not been established for this body fluid. The test result must be integrated into the clinical context for interpretation. A. flavus Ab Immune diff Ql (S)on 01-01-2024 Aspergillus flavus Antibody Negative Neg:<1:1 [facility] A. niger IgE Qn (S)on 2023 Aspergillus niger Antibody Negative Neg:<1:1 [facility] Comment on above: Performed at: [facility] [address] [id number] Director: Skylar Ortega MD, Phone: [phone] Performed at: [facility] [address] [id number] Director: Skylar Ortega MD, Phone: [phone] Adenosine monophosphate.cycl ic [Moles/Vol]on 01-01-2024 Cyclic Citrullinated Peptid IgG/IgA 0 units 0-19 [facility] Comment on above: Negative <20 Weak po sitive 20 - 39 Moderate positive 40 - 59 Strong positive >59Performed at: [facility] [id number] Director: García Salecdo PhD, Phone: [phone] Negative <20 Weak po sitive 20 - 39 Moderate positive 40 - 59 Strong positive >59Performed at: [employer] [id number] Director: García Salcedo PhD, Phone: [phone] Atypical perinuclear antineu trophil cytoplasmic antibodies measurementon 01-01-2024 Neutrophil cytoplasmic Ab.perinuclear.atypic al IF (S) [Titer] <1:20 titer Neg:<1:20 [facility] Comment on above: Serum is slightly he molyzedThe atypical pANCA pattern has been observed in asignificant percentage of patients with ulcerative colitis,primary sclerosing cholangitis and autoimmune hepatitis.Performed at: [facility] [id number] Director: Skylar Ortega MD, Phone: [phone] at: [employer] [address] [id number] Director: García Salcedo PhD, Phone: [phone] Cefuroxime free [Mass/Vol]on 01-01-2024 Anti-Nuclear Antibody Profile Negative Negative [facility] Comment on above: Performed at: [facility] [address] [id number] Director: García Salcedo PhD, Phone: [phone] Performed at: [facility] [address] [id number] Director: García Salcedo PhD, Phone: [phone] Performed at: [facility] [address] [id number] Director: García Salcedo PhD, Phone: [phone] Performed at: [facility] [address] [id number] Director: García Salcedo PhD, Phone: [phone] H. capsulatum Ab CF Ql (S)on 01-01-2024 Histoplasma Mycelial Ab (Comp Fix) Negative Neg:<1:2 [facility] Histoplasma Yeast Ab (Comp Fix) Negative Neg:<1:2 [facility] Comment on above: Performed at: [employer] [id number] Director: Skylar Ortega MD, Phone: [phone] Performed at: [facility] [address] [id number] Director: Skylar Ortega MD, Phone: [phone] Performed at: [facility] [address] [id number] Director: Skylar Ortega MD, Phone: [phone] Laboratory - Hematology and Cell countson 01-01-2024 ESR (Bld) [Velocity] 25 mm/h <=30 [facility] Myeloperoxidase Ab [Units/vo lume] in Serum by Immunoassayon 01-01-2024 Myeloperoxidase Ab IA Qn (S) <0.2 units 0.0-0.9 [facility] No Panel Informationon 12-31 Histoplasma Galactomannan Antigen Negative <0.5 ng/mL [facility] Comment on above: This test was develmao ped and its performance characteristicsdetermined by [employer]. It has not been cleared orapproved by the Food and Drug Administration.Performed at: [facility] [place] [address], [place] [id number] Director: Lori Green MD, Phone: [phone] Aspergillus fumigatus Antibody Negative Neg:<1:1 [facility] Blastomyces dermatitidis Antibody Negative Neg:<1:1 [facility] Comment on above: Performed at: [facility] [address] [id number] Director: Skylar Ortega MD, Phone: [phone] C-Reactive Protein, Quantitative 1.37 mg/dL <=0.50 [facility] Perinuclear ANCA (p-ANCA) Antibody <1:20 titer Neg:<1:20 [facility] Comment on above: Serum is slightly he molyzedThe presence of positive fluorescence exhibiting P-ANCA orC-ANCA patterns alone is not specific for the diagnosis ofWegener's Granulomatosis (WG) or microscopic polyangiitis.Decisions about treatment should not be based solely onANCA IFA results. The International ANCA Group Consensusrecommends follow up testing of positive sera with both OH-3 and MPO-ANCA enzyme immunoassays. As many as 5% serumsamples are positive only by EIA. Ref. AM J Clin Myzjaj1611;111:507-513. Proteinase 3 Ab [Units/volum e] in Serum by Immunoassayon 01-01-2024 Proteinase 3 Ab IA Qn (S) <0.2 units 0.0-0.9 [facility] SCL-70 extractable nuclear A b IA Qn (S)on 01-01-2024 Scl-70 (Scleroderma) Antibody <0.2 AI 0.0-0.9 [facility] Serum angiotensin converting enzyme (MOJGAN) measurementon 01-01-2024 Angiotensin converting enzyme [Catalytic activity/Vol] 63 U/L 14 [facility] Comment on above: Performed at: [facility] [address] [id number] Director: García Salcedo PhD, Phone: [phone] Serum classic neutrophil cyt oplasmic antibody titer by immunofluorescenceon 01-01-2024 Neutrophil cytoplasmic Ab.classic IF (S) [Titer] <1:20 titer Neg:<1:20 [facility] Comment on above: Serum is slightly he molyzed Serum or plasma rheumatoid f actor measurement (units/volume)on 01-01-2024 Rheumatoid factor Qn 10.3 [IU]/mL <14.0 [facility] Comment on above: Performed at: [facility] [address] [id number] Director: García Salcedo PhD, Phone: [phone] CT CARDIAC SCORINGon 023 CT CARDIAC SCORING [...] STRUCTURES ARE THE SOLE RESPONSIBILITY OF THE [employer] BPC DEVELOPER SUBMITTING THE ORIGINAL REPORT (NOT THIS ADDENDUM) Electronically signed by: SUKHJINDER MOONEY MD Addendum Ends Patient Name: PILO GREGORY STUDY: CT CARDIAC SCORING; 03/24/2023 10:58 am INDICATION: htn, hyperlipedmia E78.5: Hyperlipidemia R07.89: Chest tightness. COMPARISON: None. ACCESSION NUMBER(S): [id number] ORDERING CLINICIAN: KATHLEEN CASTRO TECHNIQUE: Using prospective [...] al. JACC 2015 (http://dx.doi.org/10.1016 /j.j acc.2015.08.035) Reading Equipment Services Associate: Dr. Valerio Morris, Date: 03/24/2023 11:23 am Electronically signed by: SUKHJINDER MOONEY MD Normal [place] CT Cardiac Scoringon 023 CT Cardiac Scoring Normal [facility] 250 DO Work Phone: Tobacco Screening.on 023 Tobacco use status [facility] b) No [facility] 250 DO Work Phone: NOH CARDIAC STRESS/REST INJE CTIONon 03-01-2023 [facility] CARDIAC STRESS/REST INJECTION Patient Name: PILO GREGORY STUDY: MYOCARDIAL PERFUSION STRESS TEST WITH EXERCISE CONVERTED TO LEXISCAN Performing facility: [facility], [address] [place] [address], [address], [address] Provider: Kathleen Castro MD, FACC PCP: Dr. Ellis Tomlin Supervising provider: Patti Auguste MD, FACC INDICATION: Dyspnea Chest tightness HISTORY: Gender: F; Age: 77 y/o ; Height: 0 cm; Weight: 0 kg. Chest Pain; High Cholesterol; SOB; Denies smoking. COMPARISON: No comparison. ACCESSION NUMBER(S): [id number]; [id number]; [id number] ORDERING CLINICIAN: KATHLEEN CASTRO TECHNIQUE: ONE DAY [...] Electronically signed by: PATTI AUGUSTE MD Normal [place] No Panel Informationon 03-01 Normal -[facility] 250 DO Work Phone: LIPID PROFILEon 02-27-2023 CHOL-HDL RATIO NORM SEE BELOW Normal [facility] Comment on above: Result Comment: 3.3 - 4.4 LOW RISK 4.4 - 7.1 AVERAGE RISK 7.1 - 11.0 MODERATE RISK >11.0 HIGH RISK Performed By: #### L IPID #### [facility] [address] [place] [address] [address] Krystle Camilo Cholesterol [Mass/Vol] 211 mg/dL Critically high <=200 [facility] Comment on above: Performed By: #### L IPID #### [facility] [address] [place] [address] [address] Krystle Camilo Cholesterol in HDL [Mass/Vol] 52 mg/dL Normal 40-60 [facility] Comment on above: Performed By: #### L IPID #### [facility] [address] [place] [address] [address] Krystle Camilo Cholesterol in LDL [Mass/Vol] 143.0 mg/dL Normal [facility] Comment on above: Performed By: #### L IPID #### [facility] [address] [place] [address] [address] Krystle Camilo Cholesterol.total/Cho lesterol in HDL [Mass ratio] 4.1 {ratio} Normal [facility] Comment on above: Performed By: #### L IPID #### [facility] [address] [place] [address] [address] Krystle Camilo HDL NORMAL > or = 60 mg/dl - LO W CARDIOVASCULAR RISK <40 mg/dl - HIGH CARDIOVASCULAR RISK Normal [facility] Comment on above: Performed By: #### L IPID #### [facility] [address] [place] [address] [address] Krystle Camilo LDL CALC NORMAL SEE BELOW Normal [facility] Comment on above: Result Comment: <100 mg/dl OPTIMAL 100 - 129 mg/dl NEAR OR ABOVE OPTIMAL 130 - 159 mg/dl BORDERLINE HIGH 160 - 189 mg/dl HIGH >190 mg/dl VERY HIGH Performed By: #### L IPID #### [facility] [address] [place] [address] [address] Krystle Camilo Triglyceride [Mass/Vol] 80 mg/dL Normal <=150 [facility] Comment on above: Performed By: #### L IPID #### [facility] [address] [place], [place] [address] Dr. Krystle Camilo VLDL CALC 16.0 mg/dL Normal [facility] Comment on above: Performed By: #### L IPID #### [facility] [address] [place], [place] [address] Dr. Krystle Camilo Office Visit (Cardiology)on 02-13-2023 Follow-up visit Diagnoses/Problems [...] Order; Status:Hold For - Scheduling,Retrospective Authorization; Requested for:[id number]; Radiologist to Determine Optimal Study : Y What are the patient's signs and symptoms? : dyspnea chest tightness Chest tightness, Dyspnea, Hyperlipidemia Lipid Panel; Status:Active - Retrospective Authorization; Requested for:[id number]; Class 1 obesity with body mass index (BMI) of 30.0 to 30.9 in adult Healthy Weight Tips; Status:Complete - Retrospective Authorization; Done: [id number] Some eating tips that can help you lose weight.; Status:Complete - Retrospective Authorization; Done: [id number] Dyspnea IO EKG Electrocardiogram- 12 Lead; Status:Complete; Done: [id number] SocHx: Never a smoker Tobacco Use Screening; Status:Complete; Done: [id number] Tobacco Use Screening; Status:Complete; Done: [id number] Patient Instructions Please bring all medicines, vitamins, [...] times, but not consistently, and that the plastics engineer felt that her shortness of breath [...] echocardiogram that was done on 01/16/2023 at [facility]. Assessment: 1. 77-year-old with exertional shortness [...] long hist (more content not included)... Normal [employer] Tobacco Screening.on 023 Adult depression screening assessment No [facility] 250 DO Work Phone: Fall risk assessment a) No falls within the last year [facility] 250 DO Work Phone: Tobacco use status [facility] b) No [facility] 250 DO Work Phone: ECHOCARDIO M/2D COMPLETEon 0 01-16-2023 ECHOCARDIO M/2D COMPLETE Patient: PILO GREGORY Exam Date: 01/16/2023 : 1945 Gender:F Ordering : DR ALEXANDER TOMLIN M.D. Admission #: [id number] Family : Order #: [id number] CLICK HERE TO VIEW EXAM ECHOCARDIOGRAM REPORT [...] Pressure: 35.37 ml, 35.37 ml Dictated by: Alfred Stern M.D. on 01/16/2023 at 14:49 Approved by: Alfred Stern M.D. on 01/16/2023 at 14:53 Normal [facility] B-Type Natriuretic Peptideon 01-04-2023 B-Type Natriuretic Peptide see note [employer] Other B-Type Natriuretic Peptide 582.0 pg/ml <=1,800.0 pg/ml [employer] Other BNPon 01-04-2023 Natriuretic peptide B (Bld) [Mass/Vol] 582.0 pg/mL Normal <=1,800.0 [facility] Comment on above: Performed By: #### B EMERGENCY MANAGEMENT SYSTEM DIRECTOR, BMP #### [facility] [address] [place] [address] Dr. Krystle Camilo CBC AUTO DIFFon 01-04-2023 BASO # 0.0 103/ul Normal 0.0-0.1 [facility] Comment on above: Performed By: #### C BC #### [facility] [address] [place] [address] Dr. Krystle Camilo Basophils/100 WBC (Bld) 0.7 % Normal 0.2-2.0 [facility] Comment on above: Performed By: #### C BC #### [facility] [address] [place] [address] Dr. Krystle Camilo EO # 0.4 103/ul Normal 0.0-0.7 [facility] Comment on above: Performed By: #### C BC #### [facility] [address] [place] [address] Dr. Krystle Camilo Eosinophils/100 WBC (Bld) 5.7 % Normal 0.9-7.0 [facility] Comment on above: Performed By: #### C BC #### [facility] [address] [place] [address] Dr. Krystle Camilo Erythrocyte distribution width (RBC) [Ratio] 12.9 % Normal 11.0-15.0 [facility] Comment on above: Performed By: #### C BC #### [facility] [address] [place] [address] Dr. Krystle Camilo Hematocrit (Bld) [Volume fraction] 44.3 % Normal 36.0-48.0 [facility] Comment on above: Performed By: #### C BC #### [facility] [address] [place] [address] Dr. Krystle Camilo Hemoglobin (Bld) [Mass/Vol] 15.0 g/dL Normal 12.0-16.0 [facility] Comment on above: Performed By: #### C BC #### [facility] [address] [place] [address] Dr. Krystle Camilo IG # 0.02 10e3/ul Normal 0.00-0.03 [facility] Comment on above: Performed By: #### C BC #### [facility] [address] [place] [address] Dr. Krystle Camilo IG % 0.3 % Normal 0.0-0.5 [facility] Comment on above: Performed By: #### C BC #### [facility] [address] [place] [address] Dr. Krystle Camilo LYMPH # 1.1 103/ul Critically low 1.2-3.8 [facility] Comment on above: Performed By: #### C BC #### [facility] [address] [place] [address] Dr. Krystle Camilo Lymphocytes/100 WBC (Bld) 18.1 % Critically low 20.5-60.0 [facility] Comment on above: Performed By: #### C BC #### [facility] [address] [place] [address] Dr. Krystle Camilo MANUAL DIFF REQ NO Normal [facility] Comment on above: Performed By: #### C BC #### [facility] [address] [place] [address] Dr. Krystle Camilo MCH (RBC) [Entitic mass] 30.9 pg Normal 26.7-34.0 [facility] Comment on above: Performed By: #### C BC #### [facility] [address] [address] [address] Krystle Camilo MCHC (RBC) [Mass/Vol] 33.9 g/dL Normal 29.9-35.2 [facility] Comment on above: Performed By: #### C BC #### [facility] [address] [place] [address] Dr. Krystle Camilo MCV (RBC) [Entitic vol] 91.3 fL Normal 81.0-99.0 [facility] Comment on above: Performed By: #### C BC #### [facility] [address] [place] [address] Dr. Krystle Camilo MONO # 0.7 103/ul Normal 0.3-0.8 [facility] Comment on above: Performed By: #### C BC #### [facility] [address] [place] [address] Dr. Krystle Camilo Monocytes/100 WBC (Bld) 11.7 % Normal 1.7-12.0 [facility] Comment on above: Performed By: #### C BC #### [facility] [address] [place] [address] Dr. Krystle Camilo NEUT # 3.9 103/ul Normal 1.4-6.5 [facility] Comment on above: Performed By: #### C BC #### [facility] [address] [place] [address] Dr. Krystle Camilo Neutrophils/100 WBC (Bld) 63.5 % Normal 43.0-75.0 [facility] Comment on above: Performed By: #### C BC #### [facility] [address] [place] [address] Dr. Krystle Camilo Platelet mean volume (Bld) [Entitic vol] 8.8 fL Critically low 9.5-13.5 [facility] [facility] Comment on above: Performed By: #### C BC #### [facility] [address] [place] [address] Dr. Krystle Camilo PLT 232 103/ul Normal 150-450 [facility] Comment on above: Performed By: #### C BC #### [facility] [address] [address] [address] Krystle Camilo RBC 4.85 106/ul Normal 4.20-5.40 [facility] Comment on above: Performed By: #### C BC #### [facility] [address] [address] [address] Krystle Camilo WBC 6.1 103/ul Normal 4.0-11.0 [facility] Comment on above: Performed By: #### C BC #### [facility] [address] [place] [address] Dr. Krystle Camilo PROF CHEM 8 (BAS METB)on Anion gap [Moles/Vol] 11.6 mmol/L Normal Th [facility] Comment on above: Performed By: #### B EMERGENCY MANAGEMENT SYSTEM DIRECTOR, BMP #### [facility] [address] [place] [address] Dr. Krystle Camilo Calcium [Mass/Vol] 9.5 mg/dL Normal 8.5-10.1 [facility] Comment on above: Performed By: #### B EMERGENCY MANAGEMENT SYSTEM DIRECTOR, BMP #### [facility] [address] [address] [address] Krystle Camilo Chloride [Moles/Vol] 110 mmol/L Critically high 98-107 [facility] Comment on above: Performed By: #### B EMERGENCY MANAGEMENT SYSTEM DIRECTOR, BMP #### [facility] [address] [place] [address] Dr. Kryslte Camilo CO2 [Moles/Vol] 29.7 mmol/L Normal 21.0-32.0 [facility] Comment on above: Performed By: #### B EMERGENCY MANAGEMENT SYSTEM DIRECTOR, BMP #### [facility] [address] [place] [address] Dr. Krystle Camilo Creatinine [Mass/Vol] 1.11 mg/dL Critically high 0.55-1.02 [facility] Comment on above: Performed By: #### B EMERGENCY MANAGEMENT SYSTEM DIRECTOR, BMP #### [facility] [address] [place] [address] Dr. Krystle Camilo EGFR-AF TUNISIAN 58 mL/min/1.73m2 Critically low >=60 [facility] Comment on above: Performed By: #### B EMERGENCY MANAGEMENT SYSTEM DIRECTOR, BMP #### [facility] [address] [address] [address] Krystle Camilo EGFR-NON AF TUNISIAN 48 mL/min/1.73m2 Critically low >=60 [facility] Comment on above: Performed By: #### B EMERGENCY MANAGEMENT SYSTEM DIRECTOR, BMP #### [facility] [address] [address] [address] Krystle Camilo Glucose [Mass/Vol] 77 mg/dL Normal 74-106 [facility] Comment on above: Performed By: #### B EMERGENCY MANAGEMENT SYSTEM DIRECTOR, BMP #### [facility] [address] [address] [address] Krystle Camilo Potassium [Moles/Vol] 4.3 mmol/L Normal 3.5-5.1 [facility] Comment on above: Performed By: #### B EMERGENCY MANAGEMENT SYSTEM DIRECTOR, BMP #### [facility] [address] [address] [address] Krystle Camilo Sodium [Moles/Vol] 147 mmol/L Critically high 136-145 [facility] Comment on above: Performed By: #### B EMERGENCY MANAGEMENT SYSTEM DIRECTOR, BMP #### [facility] [address] [address] [address] Krystle Camilo Urea nitrogen [Mass/Vol] 16.0 mg/dL Normal 7.0-18.0 [facility] Comment on above: Performed By: #### B EMERGENCY MANAGEMENT SYSTEM DIRECTOR, BMP #### [facility] [address] [address] [address] Krystle Camilo Urea nitrogen/Creatinine [Mass ratio] 14.4 mg/mg Normal [facility] Comment on above: Performed By: #### B EMERGENCY MANAGEMENT SYSTEM DIRECTOR, BMP #### [facility] [address] CHEST WO CONon 11-03-2022 CT CHEST [...] BARBARA MIRANDA Date: 2022-11-03 15:55 Normal [facility] MAMM SCREEN 3D ITALIA CADon 11-03-2022 MG MAMM SCREEN 3D ITALIA CAD Patient: PILO GREGORY Exam Date: 11/03/2022 : 1945 Gender:F Ordering : DR ALEXANDER TOMLIN M.D. Admission #: [id number] Family : Order #: [id number] CLICK HERE TO VIEW EXAM RADIOLOGY REPORT [...] with breast cancer at age 59. LOCATION: [facility] BREAST COMPOSITION: Scattered areas fibroglandular density. [...] Miranda MD on 11/03/2022 at 15:57 Normal [facility] CT CHEST WO CONon 03-10-2022 CT [...] by: ROBER CHÁVEZ Date: 2022-03-10 10:46 Normal [facility] Vital Signs Date Time Vital Sign Value Performing Clinician Facility 12-23-2024 12:40-0500 Body height 161.3 cm Kathleen Castro MD Work Phone: [facility] 12-23-2024 12:40-0500 Body mass index (BMI) [Ratio] 28.39 kg/m2 Kathleen Castro MD Work Phone: [facility] 12-23-2024 12:40-0500 Body weight 73.85 kg Kathleen Castro MD Work Phone: [facility] 12-23-2024 12:40-0500 Diastolic blood pressure 60 mm[Hg] Kathleen Castro MD Work Phone: [facility] 12-23-2024 12:40-0500 Heart rate 62 /min Kathleen Castro MD Work Phone: [facility] 12-23-2024 12:40-0500 Systolic blood pressure 130 mm[Hg] Kathleen Castro MD Work Phone: [facility] 10-15-2024 09:21-0500 Body height 161.3 cm Cathy Benitez GLUING MACHINE OPERATOR-ELECTROMATIC TYPIST Work Phone: [facility] 10-15-2024 09:21-0500 Body mass index (BMI) [Ratio] 28.6 kg/m2 Cathy Benitez GLUING MACHINE OPERATOR-ELECTROMATIC TYPIST Work Phone: [facility] 10-15-2024 09:21-0500 Body temperature 97.7 [degF] Cathyelyssa Benitez GLUING MACHINE OPERATOR-ELECTROMATIC TYPIST Work Phone: [facility] 10-15-2024 09:21-0500 Body weight 74.39 kg Cathy Eli GLUING MACHINE OPERATOR-ELECTROMATIC TYPIST Work Phone: [facility] 10-15-2024 09:21-0500 Diastolic blood pressure 82 mm[Hg] Cathy Benitez GLUING MACHINE OPERATOR-ELECTROMATIC TYPIST Work Phone: [facility] 10-15-2024 09:21-0500 Heart rate 67 /min Cathy Benitez GLUING MACHINE OPERATOR-ELECTROMATIC TYPIST Work Phone: [facility] 10-15-2024 09:21-0500 Respiratory rate 16 /min Cathy Benitez GLUING MACHINE OPERATOR-ELECTROMATIC TYPIST Work Phone: [facility] 10-15-2024 09:21-0500 SaO2% (BldA) [Mass fraction] 95 % Cathy Benitez GLUING MACHINE OPERATOR-ELECTROMATIC TYPIST Work Phone: [facility] 10-15-2024 09:21-0500 Systolic blood pressure 133 mm[Hg] Cathy Benitez GLUING MACHINE OPERATOR-ELECTROMATIC TYPIST Work Phone: [facility] 09-09-2024 14:27-0500 Body height 161.3 cm Kathleen Castro MD Work Phone: [facility] 09-09-2024 14:27-0500 Body mass index (BMI) [Ratio] 28.77 kg/m2 Kathleen Castro MD Work Phone: [facility] 09-09-2024 14:27-0500 Body weight 74.84 kg Kathleen Castro MD Work Phone: [facility] 09-09-2024 14:27-0500 Diastolic blood pressure 88 mm[Hg] Kathleen Castro MD Work Phone: [facility] 09-09-2024 14:27-0500 Heart rate 74 /min Kathleen Castro MD Work Phone: [facility] 09-09-2024 14:27-0500 Systolic blood pressure 144 mm[Hg] Kathleen Castro MD Work Phone: [facility] 08-02-2024 10:50-0400 Body height 160.66 cm [facility] 08-02-2024 10:50-0400 Body mass index (BMI) [Ratio] 28.9 kg/m2 [facility] 08-02-2024 10:50-0400 Body weight 74.61 kg [facility] 08-02-2024 10:50-0400 Diastolic blood pressure 80 mm[Hg] [facility] 08-02-2024 10:50-0400 Heart rate 70 /min [facility] 08-02-2024 10:50-0400 Respiratory rate 16 /min [facility] 08-02-2024 10:50-0400 SaO2% (BldA) [Mass fraction] 96 % [facility] 08-02-2024 10:50-0400 Systolic blood pressure 144 mm[Hg] [facility] 12-29-2023 11:03-0500 Body height 162.56 cm MD Alexander Tomlin Work Phone: [facility] 12-29-2023 11:03-0500 Body mass index (BMI) [Ratio] 28 kg/m2 MD Alexander Tomlin Work Phone: [facility] 12-29-2023 11:03-0500 Body weight 74.16 kg MD Alexander Tomlin Work Phone: [facility] 12-29-2023 11:03-0500 Diastolic blood pressure 90 mm[Hg] MD Alexander Tomlin Work Phone: [facility] 12-29-2023 11:03-0500 Heart rate 94 /min MD Alexander Tomlin Work Phone: [facility] 12-29-2023 11:03-0500 Systolic blood pressure 139 mm[Hg] MD Alexander Tomlin Work Phone: [facility] 04-07-2023 13:30-0400 Body height 162.56 cm Alexander Tomlin Other [facility] [employer] Other 04-07-2023 13:30-0400 Body mass index (BMI) [Ratio] 29.69 kg/m2 Alexander Tomlin Other [facility] [employer] Other 04-07-2023 13:30-0400 Body weight 78.47 kg Alexander Tomlin Other [facility] [employer] Other 04-07-2023 13:30-0400 Diastolic blood pressure 76 mm[Hg] Alexander Tomlin Other [facility] Other 04-07-2023 13:30-0400 Systolic blood pressure 161 mm[Hg] Alexander Tomlin Other [facility] Other 03-20-2023 16:02-0400 Diastolic blood pressure 82 mm[Hg] Alexander Tomlin Work Phone: [facility] [address] DO Work Phone: 03-20-2023 16:02-0400 Diastolic blood pressure 80 mm[Hg] Alexander Tomlin Work Phone: [facility] [address] DO Work Phone: 03-20-2023 16:02-0400 Systolic blood pressure 138 mm[Hg] Alexander Tomlin Work Phone: [facility] [address] DO Work Phone: 03-20-2023 15:32-0400 Body height 160.02 cm Alexander Tomlin Work Phone: [facility] [address] DO Work Phone: 03-20-2023 15:32-0400 Body mass index (BMI) [Ratio] 30.47 kg/m2 Alexander Tomlin Work Phone: [facility] 250 DO Work Phone: 03-20-2023 15:32-0400 Body surface area Derived from formula 1.81 m2 Alexander Tomlin Work Phone: [facility] [address] DO Work Phone: 03-20-2023 15:32-0400 Body weight 78.02 kg Alexander Tomlin Work Phone: [facility] [address] DO Work Phone: 03-20-2023 15:32-0400 Diastolic blood pressure 86 mm[Hg] Alexander Tomlin Work Phone: [facility] [address] DO Work Phone: 03-20-2023 15:32-0400 Heart rate 74 /min Alexander Tomlin Work Phone: [facility] [address] DO Work Phone: 03-20-2023 15:32-0400 Systolic blood pressure 144 mm[Hg] Alexander Tomlin Work Phone: [facility] 250 DO Work Phone: 02-27-2023 14:47-0400 143 1 Alexander Tomlin Work Phone: [facility] [address] DO Work Phone: Comment on above: [facility] 02-13-2023 09:36-0400 Diastolic blood pressure 70 mm[Hg] Alexander Tomlin Work Phone: [facility] [address] DO Work Phone: 02-13-2023 09:36-0400 Systolic blood pressure 138 mm[Hg] Alexander Tomlin Work Phone: [facility] 250 DO Work Phone: 02-13-2023 09:35-0400 Body height 160.02 cm Alexander Tomlin Work Phone: [facility] [address] DO Work Phone: 02-13-2023 09:35-0400 Body mass index (BMI) [Ratio] 30.65 kg/m2 Alexander Tomlin Work Phone: [facility] [address] DO Work Phone: 02-13-2023 09:35-0400 Body surface area Derived from formula 1.82 m2 Alexander Tomlin Work Phone: [facility] 250 DO Work Phone: 02-13-2023 09:35-0400 Body weight 78.47 kg Alexander Tomlin Work Phone: [employer] [employer] 250 DO Work Phone: 02-13-2023 09:35-0400 Diastolic blood pressure 72 mm[Hg] Alexander Tomlin Work Phone: [employer] [employer] 250 DO Work Phone: 02-13-2023 09:35-0400 Heart rate 63 /min Alexander Tomlin Work Phone: [employer] [employer] 250 DO Work Phone: 02-13-2023 09:35-0400 Systolic blood pressure 130 mm[Hg] Alexander Tomlin Work Phone: [facility] [employer] 250 DO Work Phone: 01-02-2023 09:30-0500 Body height 162.56 cm Alexander Tomlin Other [employer] Other 01-02-2023 09:30-0500 Body mass index (BMI) [Ratio] 29.52 kg/m2 Alexander Tomlin Other [employer] Other 01-02-2023 09:30-0500 Body weight 78.02 kg Alexander Tomlin Other [employer] Other 01-02-2023 09:30-0500 Diastolic blood pressure 70 mm[Hg] Alexander Tomlin Other [employer] Other 01-02-2023 09:30-0500 SaO2% (BldA) [Mass fraction] 98 % Alexander Tomlin Other [employer] Other 01-02-2023 09:30-0500 Systolic blood pressure 142 mm[Hg] Alexander Tomlin Other [employer] Other Encounters Encounter Date Encounter Type Care Provider Facility Start: 04-24-2025 End: 04-24-2025 Marshall Landaverde MD Work Phone: [facility] Start: 04-24-2025 End: 04-24-2025 Bamdesi Landaverde MD Work Phone: [facility] Start: 04-24-2025 End: 04-24-2025 ambulatory CHOCO LANDAVERDE Not Available Start: 04-24-2025 End: 04-24-2025 Office outpatient visit 10 minutes Choco Landaverde MD Work Phone: [facility] Comment on above: Seborrheic keratosis (Primary Dx); Actinic keratosis Start: 03-26-2025 End: 03-26-2025 ambulatory LUIS BLACKMON [facility] Start: 03-16-2025 Evaluation and management of inpatient DELROY Nolan [facility] Start: 03-15-2025 Evaluation and management of inpatient [facility] Start: 03-14-2025 Evaluation and management of inpatient [facility] Start: 03-14-2025 Evaluation and management of inpatient [facility] Start: 03-13-2025 Evaluation and management of inpatient JESSICARAJ [facility] Start: 03-12-2025 Evaluation and management of inpatient [facility] Start: 03-12-2025 Evaluation and management of inpatient [facility] Start: 03-12-2025 End: 03-20-2025 Evaluation and management of inpatient ROB T MARTA [facility] Start: 03-12-2025 End: 03-12-2025 ambulatory UNKNOWN PROVIDER Facility:[facility] Start: 01-30-2025 End: 01-30-2025 Marshall Landaverde MD Work Phone: [facility] Start: 01-30-2025 End: 01-30-2025 Marshall Landaverde MD Work Phone: [facility] Start: 01-30-2025 End: 01-30-2025 Office outpatient visit 15 minutes Choco Landaverde MD Work Phone: [facility] Comment on above: Seborrheic keratosis (Primary Dx); Xerosis cutis; Lentigines; Actinic keratosis; Neoplasm of unspecified behavior of bone, soft tissue, and skin; Capillary angioma; Sebaceous hyperplasia of face; Seborrheic keratosis, inflamed; Personal history of other malignant neoplasm of skin Start: 01-30-2025 End: 01-30-2025 ambulatory CHOCO LANDAVERDE Not Available Start: 12-23-2024 End: 12-23-2024 Office outpatient visit 15 minutes Kathleen Castro MD Work Phone: [facility] Comment on above: CRLD (chronic restri ctive lung disease) (Primary Dx); SOTO (dyspnea on exertion); Stage 3a chronic kidney disease (Multi); Never smoked cigarettes; Mixed hyperlipidemia; Body mass index (BMI) 28.0-28.9, adult Start: 12-23-2024 End: 12-23-2024 ambulatory [facility] Start: 12-10-2024 End: 12-10-2024 Office outpatient visit 15 minutes James Mo DO Work Phone: [facility] Comment on above: Sarcoidosis (Primary Dx) Start: 12-10-2024 End: 12-10-2024 ambulatory JAMES Gramajo JAYTONELAYNE [facility] Start: 11-26-2024 End: 11-26-2024 ambulatory CATHY Hector [facility] Start: 11-26-2024 End: 11-26-2024 Subsequent hospital visit by physician Gisell Devries [facility] [place] Comment on above: Sarcoid Start: 10-15-2024 End: 10-15-2024 Office consultation new/estab patient 60 min Cathy Hector [facility] GLUING MACHINE OPERATOR-ELECTROMATIC TYPIST Work Phone: [facility] Comment on above: Sarcoid (Primary Dx) ; Shortness of breath Start: 10-15-2024 End: 10-15-2024 ambulatory ALEXANDER TOMLIN [facility] Start: 09-09-2024 End: 09-09-2024 Office outpatient visit 25 minutes Kathleen Castro MD Work Phone: [facility] Comment on above: SOTO (dyspnea on exer tion); Mixed hyperlipidemia; Never smoked cigarettes; Body mass index (BMI) 28.0-28.9, adult; CRLD (chronic restrictive lung disease); Personal history of COVID-19; Stage 3a chronic kidney disease (Multi) Start: 09-09-2024 End: 09-09-2024 ambulatory [facility] Start: 09-05-2024 End: 09-05-2024 Bamboo una Landaverde MD Work Phone: [facility] [...] Not Available Start: 08-02-2024 End: 08-02-2024 ambulatory [facility] Work Phone: Start: 08-02-2024 End: 08-02-2024 Patient encounter procedure [facility] Work Phone: Start: 07-04-2024 Non-patient / Non-visit [facility] Work Phone: Start: 01-22-2024 End: 01-22-2024 ambulatory Dayanna Webber [facility] Facility:[facility] Start: 01-22-2024 End: 01-22-2024 ambulatory MD Alexander Tomlin Work Phone: [facility] Work Phone: Start: 01-22-2024 End: 01-22-2024 Departed Referred MD Alexander Tomlin Work Phone: [facility] Start: 01-01-2024 Non-patient / Non-visit MD Bettie Tomlin Work Phone: [facility] Phys[facility] [place] [facility] Work Phone: Start: 12-29-2023 End: 12-29-2023 Patient encounter procedure MD Alexander Tomlin Work Phone: [facility] Physician [facility] Work Phone: Start: 04-07-2023 End: 04-07-2023 ambulatory Alexander Tomlin Other [facility] Other Start: 04-07-2023 Patient encounter procedure Alexander Tomlin [facility] Start: 03-28-2023 Chart Update Alexander Tomlin Work Phone: [facility] [address] DO Work Phone: Start: 03-24-2023 Chart Update Alexander Tomlin Work Phone: [facility] 250 DO Work Phone: Start: 03-24-2023 ambulatory Kathleen Moha0n Facility: [id number] Start: 03-02-2023 Chart Update Alexander Tomlin Work Phone: [facility] [address] DO Work Phone: Start: 03-01-2023 ambulatory Kathleen Moha0n Facility: [id number] Start: 02-27-2023 End: 02-28-2023 ambulatory DOCTOR MISC Facility:[facility] Start: 02-14-2023 End: 02-14-2023 ambulatory Alexander Tomlin Other [facility] Other Start: 02-14-2023 Telephone encounter Alexander Tomlin [facility] Start: 02-13-2023 Office consultation new/estab patient 60 min Alexander Tomlin Work Phone: [facility] [address] DO Work Phone: Start: 02-13-2023 ambulatory MD KATHLEEN CASTRO Facilit y: Start: 01-18-[address] Alexander Tomlin Facility:[facility] Start: 01-17-2023 End: 01-17-2023 ambulatory Alexander Tmolin Other [employer] Other Start: 01-17-2023 Telephone encounter Alexander Tomlin [facility] Start: 01-16-2023 End: 01-17-[address] ALEXANDER TOMLIN Facility: Start: 01-05-2023 End: 01-05-2023 ambulatory Alexander Tomlin Other [employer] Other Start: 01-05-2023 Telephone encounter Alexander Tomlin [facility] Start: 01-04-2023 End: 01-05-[address] ALEXANDER TOMLIN Facility: Start: 01-02-2023 End: 01-02-2023 ambulatory Alexander Tomlin Other [employer] Other Start: 01-02-2023 Office outpatient vi sit 15 minutes Alexander Tomlin [facility] Start: 11-03-2022 End: 11-04-2022 ambulatory DAYANNA LOBO . Facility: Start: 03-10-2022 End: 03-11-2022 ambulatory DAYANNA LOBO . Facility: Start: 10-17-2018 End: 10-17-2018 Patient encounter procedure EMILY YIN [facility] Procedures Date Procedure Procedure Detail Performing Clinician Start: 04-24-2025 CRYOTHERAPY SKIN LESION Choco Landaverde MD Work Phone: Start: 03-26-2025 Follow-up visit KAYLENE ARNOLD Start: 01-30-2025 SKIN / NAIL BIOPSY Jose Landaverde MD Work Phone: Start: 01-30-2025 End: 01-30-2025 CRYOTHERAPY SKIN LESION Choco Landaverde MD Work Phone: Start: 11-26-2024 Pressurized/nonpress urized inhalation treatment Cathy Benitez GLUING MACHINE OPERATOR-ELECTROMATIC TYPIST Work Phone: Start: 09-09-2024 Ecg routine ecg [...] 01/29/2026 9:00 AM EDT Office Visit [facility] [address] [place] [address] Choco Landaverde MD [address] [place], [place] [phone] [facility] Start: 06-30-2025 Influenza vaccination Influenza Vaccine (Season Ended) [facility] Start: 01-30-2025 End: 01-30-2025 Patient encounter procedure 01/30/2025 11:30 AM EDT Office Visit [facility] [address] [place] [address] Choco Landaverde MD [address] [place], [place] [phone] Arrived [facility] Comment on above: Arrived Start: 12-24-2024 End: 12-10-[address] chest high resolution Imaging Routine Sarcoidosis Expected: 12/24/2024, Expires: 12/10/2025 [facility] Work Phone: Comment on above: Expected: 12/24/2024, Expires: Start: 12-23-2024 End: 12-23-2024 Patient encounter procedure 12/23/2024 12:30 PM EST Office Visit [facility] [address] [facility] [address] [place] [address] Kathleen Castro MD [address] [facility] [address] [place] [address] [facility] Start: 12-10-2024 End: 12-10-2024 Telemedicine consultation with patient 12/10/2024 8:40 AM EST Telemedicine [address] [place] [phone] [place] [address] [address] [place], [place] [phone] [facility] Start: 11-28-2024 End: 11-28-2024 Patient encounter procedure 11/28/2024 1:30 PM EST Office Visit [facility] [address] [place] [phone] Choco Landaverde MD [address] [place] [address] [facility] Start: 11-25-2024 End: 11-25-2024 Patient encounter procedure 11/25/2024 11:20 AM EST Office Visit [address] [place] [phone] [place] [address] [place], [place] [phone] [facility] Start: 10-15-2024 End: 10-15-2025 Calcitriol [Mass/volume] in Serum or Plasma [facility] Work Phone: Comment on above: Expected: 10/15/2024 (Approximate), Expi res: 10/15/2025 Start: 10-15-2024 End: 10-15-2025 Complete Pulmonary Function Test Pre/Post Bronchodilator (Spirometry Pre/Post/DLCO/Lung Volumes) Complete Pulmonary Function Test Pre/Post Bronchodilator (Spirometry Pre/Post/DLCO/Lung Volumes) PFT Routine Sarcoid Expected: 10/15/2024 (Approximate), Expires: 10/15/2025 [facility] Service Area Work Phone: Comment on above: Expected: 10/15/2024 (Approximate), Expi res: 10/15/2025 Start: 09-09-2024 End: 09-09-2025 Erythrocyte sedimentation rate Sedimentation Rate Lab Routine SOTO (dyspnea on exertion) CRLD (chronic restrictive lung disease) Expected: 09/09/2024 (Approximate), Expires: 09/09/2025 [facility] Work Phone: Comment on above: Expected: 09/09/2024 (Approximate), Expi res: 09/09/2025 Start: 09-09-2024 End: 09-09-2025 Natriuretic peptide B [Mass/volume] in Blood B-Type Natriuretic Peptide Lab Routine SOTO (dyspnea on exertion) Expected: 09/09/2024 (Approximate), Expires: 09/09/2025 [facility] Area Work Phone: Comment on above: Expected: 09/09/2024 (Approximate), Expi res: 09/09/2025 Start: 09-05-2024 End: 09-05-2024 Patient encounter procedure 09/05/2024 9:20 AM EST Office Visit [facility] [address] [place] [address] Choco Landaverde MD [address] [place] [address] Arrived [facility] Comment on above: Arrived Start: 06-30-2024 COVID-19 Vaccine ( season) COVID-19 Vaccine ( season) [facility] Start: 06-30-2024 COVID-19 Vaccine ( season) COVID-19 Vaccine ( season) [facility] Start: 06-30-2024 Influenza vaccination Influenza Vaccine (#1) [facility] Start: 03-20-2023 FUV, Provider: Kathleen Castro, Status: Pen, Time: 3:30 PM FUV, Provider: Kathleen Castro, Status: Pen, Time: 3:30 PM -[facility] 250 DO Work Phone: Start: 03-01-2023 STRESS NUC, Provider: NAINA HHVI NUCLEAR 01,[id number], Status: Pen, Time: 8:00 AM STRESS NUC, Provider: NAINA HHVI NUCLEAR 01,[id number], Status: Pen, Time: 8:00 AM [facility] 250 DO Work Phone: Start: 2021 RSV High Risk: (Elderly (60+) or Population) (1 - 1-dose 75+ series) RSV High Risk: (Elderly (60+) or Population) (1 - 1-dose 75+ series) [facility] Start: 1996 Zoster Vaccines (1 of 2) Zoster Vaccines (1 of 2) [facility] Start: 1968 DTaP/Tdap/Td Vaccines (1 - Tdap) DTaP/Tdap/Td Vaccines (1 - Tdap) [facility] Start: 1965 Urine screening for protein CKD: Urine Protein Screening [facility] Start: 1964 Hepatitis C screening Hepatitis C Screening [facility] Start: 1946 Lipid panel Lipid Panel [facility] Start: 1945 Medicare Annual Wellness Visit Medicare Annual Wellness Visit (AWV) [facility] Start: 1945 Screening for osteoporosis Bone Density Scan [facility] Dermatopathology exam Dermatopat hology exam Pathology and Cytology Timed Neoplasm of unspecified behavior of bone, soft tissue, and skin Release Upon Ordering for 1 Occurrences starting 01/30/2025 [facility] Work Phone: Comment on above: Release Upon Ordering for 1 Occurrences starting 01/30/2025 Urine culture [facility] Immunizations Immunization Date Immunization Notes Care Provider Fa vonda 10-25-2021 Pfizer-BioNTech COVI D-19 Vacc 30 MCG/0.3ML Intramuscular Suspension Alexander Tomlin Work Phone: [facility] 250 DO Work Phone: 03-25-2021 Pfizer-BioNTech COVI D-19 Vacc 30 MCG/0.3ML Intramuscular Suspension Alexander Tomlin Work Phone: [facility] 03-01-2021 Pfizer-BioNTech COVI D-19 Vacc 30 MCG/0.3ML Intramuscular Suspension Alexander Tomlin Work Phone: [facility] 10-25-2019 pneumococcal polysaccharide vaccine, 23 valent MD Alexander Tomlin Work Phone: [facility] 10-08-2016 influenza virus vacc ine, unspecified formulation MD Alexander Tomlin Work Phone: [facility] 10-06-2016 pneumococcal conjuga te vaccine, 13 valent MD Alexander Tomlin Work Phone: [facility] 04-09-2015 pneumococcal conjuga te vaccine, 13 valmp Tomlin Work Phone: [facility] 250 DO Work Phone: 08-31-2008 pneumococcal polysaccharide vaccine, 23 valmp Tomlin Work Phone: [facility] 250 DO Work Phone: Payers Date Payer Category Payer Medicare supplementa l policy (as second payer) GENERIC MEDICARE SUPPLEMENT [id number] 2024 Self-pay [id number] 2023 Private Health Insurance [facility]URANCE [id number] 2011 Medicare [id number] 1959 Medicare [id number] 2..[id number] 1959 Unknown [id number] 2.840.1.633315.19 1946 Unknown [id number] 2.16840.1.251985.3.579. 2.356 1946 Unknown [id number] 2.16840.1.536300.3.579. 2.593 1946 Unknown [id number] 2.16840.1.272483.3.579. 2.593 1946 Unknown [id number] 2.16.840.1.360545.3.579. 2.593 1946 Unknown [id number] 2.16840.1.313286.3.579. 2.593 1946 Unknown [id number] 2.16.840.1.984685.3.579. 2.593 1946 Unknown [id number] 2.16.840.1.943557.3.579. 2.593 1946 Unknown [id number] 2.16.840.1.069491.3.579. 2.593 1946 Unknown [id number] 2.16.840.1.002147.3.579. 2.1068 1946 Unknown [id number] 2.16.840.1.313815.3.579. 2.1068 1946 Unknown [id number] 2.16.840.1.197384.3.579. 2.1245 1946 Unknown [id number] 2.16840.1.877969.3.579. 2.1244 1946 Unknown [id number] 2.16.840.1.913214.3.579. 2.1244 1946 Unknown [id number] 2.16840.1.833631.3.579. 2.1244 1946 Unknown [id number] 2.16.840.1.315843.3.579. 2.1244 1946 Unknown [id number] 2.16.840.1.503284.3.579. 2.1246 1946 Unknown [id number] 2.16.840.1.562633.3.579. 2.732 1946 Unknown [id number] 2.16.840.1.733188.3.579. 2.1259 1946 Unknown [id number] 2.16.840.1.580420.3.579. 2.1259 1946 Unknown [id number] 2.16.840.1.007159.3.579. 2.1259 Unknown Unknown [id number] Unknown [id number] 2.16.840.1.015364.3.579. 2.531 Social History Date Type Detail Facility Unknown if ever smoked [employer] Other Start: 11-28-2023 End: 04-24-2025 Sex Assigned At [facility] Start: 11-28-2023 End: 04-24-2025 Alcohol ingestion Alcohol ingestion [facility] Comment on above: couple weekly whiske y; coffee daily; Start: 1945 Sex Assigned At Female F [facility] Start: 05-04-2023 End: 09-09-2024 Tobacco smoking status NHIS Never smoked tobacco [facility] Start: 05-04-2023 End: 09-09-2024 Tobacco use and exposure Smokeless tobacco non-user [facility] Start: 1945 Sex assigned at Not on file [facility] Start: 09-09-2024 End: 12-23-2024 Alcoholic beverage intake Current drinker of alcohol (finding) [facility] Work Phone: Start: 08-30-2024 End: 12-23-2024 Exposure to SARS-CoV-2 (event) Not sure [facility] Start: 11-30-2024 End: 12-10-2024 Exposure to SARS-CoV-2 (event) Unable to assess [facility] Work Phone: Start: 01-30-2025 End: 04-24-2025 Alcoholic beverage intake Defer [facility] Clinical Notes 01-02-2023 to 04-24-2025 Choco Landaverde MD - 04/24/2025 1:20 PM Michelle Landaverde MD - 01/30/2025 11:30 AM John Castro MD - 12/23/2024 12:30 PM ESTPatient Eladio Mo DO - 12/10/2024 8:40 AM EST Note Date & Type Note Facility 04-24-2025 History of Present illness Narrative Follow up Diagnosis: Actinic Keratosis Location: glabella Procedure performed: Shave biopsy Date of procedure: 01/30/2025 Current treatment: here for re-evaluation Lesions: Location: left lower leg Duration: months Quality: denies pain, denies itch Modifying factors: aggravated by shaving Associated symptoms: enlarged, rough Treatments: none Established patient All pertinent medical history, medications, and allergies were reviewed. General Exam: alert, oriented to person, place, and time, normal affect, well appearing Unaccompanied A focused exam completed based on patient reported problems, see below: Skin Exam 1. SEBORRHEIC KERATOSIS Left Lower Leg - Anterior Stuck on verrucous, rico-brown papules and plaques. Patient was counseled regarding these benign growths. Removal is normally not necessary, but they may be removed if they are symptomatic or for cosmetic reasons. 2. ACTINIC KERATOSIS (3) Glabella, Left Forehead, Left [place] Erythematous scaly papules Patient was counseled regarding [...] limited to risks of scarring, darker or sap trainer pigmentary changes, recurrence, incomplete removal and infection. Method: Liquid nitrogen was used to treat the lesion(s) with two 5-10 second freeze-thaw cycles. Number of lesions treated: 3 Post-procedure instructions: Instructions were given orally and in writing. The office will be contacted if the lesion fails to resolve despite treatment, or if a side effect develops such as abnormal crusting, scabbing, redness or tenderness Cryotherapy, skin lesion - Glabella, Left Forehead, Left [place] Next Visit: as scheduled documented in this encounter [facility] 03-26-2025 Note [facility] 03-20-2025 Note Received referral fo r cholelithiasis - currently admitted. Called patient, no answer. [facility] to call office to schedule consult with Dr. Peck regarding gallbladder/cholelithiasis. [facility] 03-20-2025 Note [facility] 03-20-2025 Note [facility] 03-20-2025 Note [facility] 03-20-2025 Note [facility] 03-19-2025 Note [facility] 03-19-2025 Note [facility] 03-19-2025 Note [facility] 03-19-2025 Note [facility] 03-19-2025 Note - new onset EF 35% o n TTE 03/13 - GDMT titrated as tolerated - Currently net negative 7.4L - further planning from cardiology service - LifeVest prior to discharge [facility] 03-19-2025 Note - unlikely contribut ing to current clinical presentation [facility] 03-19-2025 Note - human metapneumovi addison positive 03/12 - was placed on ceftriaxone 1 g for potential superimposed bacterial pneumonia in ICU - currently no growth on sputum culture - weaned off steroids [facility] 03-19-2025 Note - see above [facility] 03-19-2025 Note [facility] 03-19-2025 Note - see below [facility] 03-19-2025 Note [facility] 03-19-2025 Note [facility] 03-19-2025 Note Furnace Utility Operator spoke with Meléndez in registration to have patient's secondary insurance added. Carlyn states that the [place] [employer] has already been added. Furnace Utility Operator will notify patient/family. [facility] 03-19-2025 Note [facility] 03-19-2025 Note [facility] 03-19-2025 Note [facility] 03-18-2025 Note - unlikely contribut ing to current clinical presentation [facility] 03-18-2025 Note - see below [facility] 03-18-2025 Note - human metapneumovi addison positive 03/12 - was placed on ceftriaxone 1 g for potential superimposed bacterial pneumonia in ICU - currently no growth on sputum culture - wean steroids [facility] 03-18-2025 Note [facility] 03-18-2025 Note [facility] 03-18-2025 Note - see above [facility] 03-18-2025 Note [facility] 03-18-2025 Note - new onset EF 35% o n TTE 5/15 - GDMT titrated as tolerated - further planning from cardiology service - LifeVest prior to discharge [facility] 03-18-2025 Note [facility] 03-18-2025 Note Physical Therapy [facility] 03/18/25 1418 General Missed Time Reason Other (Comment) PT Assessment PT Assessment/FISCAL ACCOUNTING CLERK Summary Pt unable to be seen at this time due to MD in speaking with pt about life vest. Will check back as able. Sita Newman, FISCAL ACCOUNTING CLERK [facility] 03-18-2025 Note [facility] 03-18-2025 Note [facility] 03-18-2025 Note [facility] 03-17-2025 Note SW advised that nazia fox is requesting SNF. No family at bedside. SW provided list to RN to give to family when they arrive later tonight. SW following. [facility] 03-17-2025 Note - new onset EF 35% o n TTE 5/15 - GDMT as tolerated - further planning from cardiology service - LifeVest prior to discharge [facility] 03-17-2025 Note - unlikely contribut ing to current clinical presentation [facility] 03-17-2025 Note - human metapneumovi addison positive 03/12 - was placed on ceftriaxone 1 g for potential superimposed bacterial pneumonia in ICU - currently no growth on sputum culture - wean steroids [facility] 03-17-2025 Note [facility] 03-17-2025 Note - see above [facility] 03-17-2025 Note [facility] 03-17-2025 Note [facility] 03-17-2025 Note - see below [facility] 03-17-2025 Note [facility] 03-17-2025 Note [facility] 03-17-2025 Note [facility] 03-17-2025 Note [facility] 03-17-2025 Note [facility] 03-17-2025 Note [facility] 03-17-2025 Note [facility] 03-16-2025 Note - human metapneumovi addison positive 03/12 - was placed on ceftriaxone 1 g for potential superimposed bacterial pneumonia in ICU - currently no growth on sputum culture - wean steroids [facility] 03-16-2025 Note -PT/OT - likely deconditioning from ICU - patient also having falls during this hospitalization - patient denies head trauma however obtain CT head as patient is mildly confused today [facility] 03-16-2025 Note [facility] 03-16-2025 Note [facility] 03-16-2025 Note - see below [facility] 03-16-2025 Note - see above [facility] 03-16-2025 Note - unlikely contribut ing to current clinical presentation [facility] 03-16-2025 Note - new onset EF 35% o n TTE 03/13 - GDMT as tolerated - further planning from cardiology service [facility] 03-16-2025 Note - patient underwent cardiac catheterization 03/14 - LCx 90% stenosis s/p TRIP x 2 - subacute total occlusion RCA s/p TRIP - DAPT with Plavix 1 year and aspirin lifelong [facility] 03-16-2025 Note [facility] 03-16-2025 Note [facility] 03-15-2025 Note [facility] 03-15-2025 Note -PT/OT -Check TSH [facility] 03-15-2025 Note - patient underwent cardiac catheterization 03/14 - LCx 90% stenosis s/p TRIP x 2 - subacute total occlusion RCA s/p TRIP - DAPT with Plavix 1 year and aspirin lifelong [facility] 03-15-2025 Note - see above [facility] 03-15-2025 Note - unlikely contribut ing to current clinical presentation [facility] 03-15-2025 Note - new onset EF 35% o n TTE 03/13 - GDMT as tolerated - further planning from cardiology service [facility] 03-15-2025 Note - required intubatio n with mechanical ventilation with extubation 03/13 - currently on 2 L - wean oxygen as able - appears to be primarily driven by cardiomyopathy however viral pneumonia contributing factor is - pulm consulted for ICU follow-up [facility] 03-15-2025 Note - human metapneumovi addison positive 03/12 - was placed on ceftriaxone 1 g for potential superimposed bacterial pneumonia in ICU - currently no growth on sputum culture - wean steroids [facility] 03-15-2025 Note - see below [facility] 03-15-2025 Note [facility] 03-15-2025 Note [facility] 03-15-2025 Note [facility] 03-14-2025 Note [facility] 03-14-2025 Note [facility] 03-14-2025 Note [facility] 03-13-2025 Note 03/13/25 0955 Vent Information Vent ID extubate to 3L NC, pt able to vocalize O2 Delivery Method Nasal cannula [facility] 03-13-2025 Note [facility] 03-13-2025 Note Problem: Respiratory - Adult Goal: Achieves optimal ventilation and oxygenation Outcome: Progressing [facility] 03-13-2025 Note [facility] 03-12-2025 Note [facility] 03-12-2025 Note [facility] 03-12-2025 Note [facility] 01-30-2025 History of Present illness Narrative Images [...] Right arm Examined Wearing fingernail and toenail maltese. Denies dark streaking Left arm Examined Hands [...] Frontal Scalp, Left Nasal Sidewall, Right [place] Erythematous scaly papules Patient was counseled regarding [...] limited to risks of scarring, darker or sap trainer pigmentary changes, recurrence, incomplete removal and infection. [...] Frontal Scalp, Left Nasal Sidewall, Right [place] 5. Neoplasm of unspecified behavior of bone, [...] keratosis, inflamed Left Lower Leg - Anterior [place] and brown stuck on verrucous scaly papule [...] limited to risks of scarring, darker or sap trainer pigmentary changes, recurrence, incomplete removal and infection. [...] year skin check documented in this encounter [facility] 12-23-2024 History of Present illness Narrative This is a follow-up from August 2024. Subjective : She just returned from [place]. While she was there she was treated for bronchitis, she is finishing up her steroids and antibiotics. She feels better on the steroids. She had 1 visit with plastics engineer, she is to have a high-resolution CT [...] and 144/84 afterwards. Test was converted to [employer] Myoview which reports normal perfusion LVEF of [...] further questions arise, Sincerely, Kathleen Castro MD [facility] Follow up : PRN Provider Attestation - [...] discussion and plan. documented in this encounter [facility] Work Phone: 12-23-2024 Instructions Lacey Ladd LPN [...] as needed only documented in this encounter [facility] Work Phone: 12-10-2024 History of Present illness Narrative Images from the original note were not included. Patient: Pilo Gregory [id number] : 1945 -- AGE 78 y.o. Provider: Oct[facility] Service Date: 10/15/24 [facility] New Visit Note HISTORY OF PRESENT ILLNESS The patient's referring provider is: No ref. provider found HISTORY OF PRESENT ILLNESS Pilo Gregory is a 78 y.o. female with no significant past medical history, who is a never smoker, who presents to a [facility] for an initial evaluation for shortness of breath. The patient reports that she has sarcoidosis and was told that she has nodules on her chest. I am unable to locate any prior radiology imaging. I have ordered a high-resolution CT scan. The patient will complete this when she returns to [place] next week. Right now she is in [facility]. We will shortly see her thereafter and [...] a never smoker, who presents to a [facility] for an initial evaluation [...] have any questions please call the office [phone] Thank you for visiting the Pulmonary clinic today! documented in this encounter [facility] Work Phone: 10-15-2024 History of Present illness Narrative Images from the original note were not included. Patient: Pilo Gregory [id number] : 1945 -- AGE 78 y.o. Provider: Cathy Benitez APRN- [facility] Location [facility] Service Date: 10/15/24 [facility] New Visit Note HISTORY OF PRESENT ILLNESS The patient's referring provider is: No ref. provider found HISTORY OF PRESENT ILLNESS Pilo Gregory is a 78 y.o. female with no significant past medical history, who is a never smoker, who presents to a [facility] for an initial evaluation for shortness of breath. I have independently interviewed and examined the patient in the office and reviewed available records. Current History HPI: On today's visit, the patient reports coming for a second opinion. She c/o having shortness of breath all the time, fatigue and wheezing since having COVID in 2020. Was seeing Assistant Community Manager at [place] who she states started her on Symbicort with no improvement, Symbicort made her throat hoarse. She has since stopped using a long time ago. She has multiple lung nodules, some are calcified, seen Dr. Dayanna Lobo plastics engineer at [place], 1.5cm largest nodule bronch was non-diagnostic. Recommend [...] a never smoker, who presents to a [facility] for an initial evaluation [...] - will get CT Chest imaging from [facility] sent over (last CT Chest 08/2024) - will get set up for bronchoscopy Follow up with Dr. Mo in 1 month If you have any questions please call the office [phone] Thank you for visiting the Pulmonary clinic today! Cathy Benitez CNP [phone] documented in this encounter [facility] Work Phone: 09-09-2024 History of Present illness Narrative Most recent office visit was in February 2023 at which time she was advised for as needed follow-up. Subjective : Accompanied by daughter to the office. Daughter Florence used to be an AIX ARCHITECT at [employer]. Patient has persistent almost class III shortness of breath, activity such as going up a short flight of stairs or doing grease renderer make her short of breath. At times [...] and 144/84 afterwards. Test was converted to [employer] Myoview which reports normal perfusion LVEF of [...] be referred to Dr.Adham Shaun Topete at [facility]. Patient and daughter would very much want [...] discussion and plan. documented in this encounter [facility] Work Phone: 09-09-2024 Instructions Conchita Rodriges LPN [...] instructions on exercise. documented in this encounter [facility] Work Phone: 09-05-2024 History of Present illness [...] limited to risks of scarring, darker or sap trainer pigmentary changes, recurrence, incomplete removal and infection. [...] Visit: as scheduled documented in this encounter [facility] 04-07-2023 Evaluation note Encounter Date Diagnosis Assessment Notes Mar, Inflamed seborrheic keratosis (ICD-10 - L82.0) cryotherapy on lesion [employer] [facility] 06-09-2023 Evaluation note* Encounter Date Diagnosis Assessment Notes Treatment Notes Treatment Clinical Notes Mar, Inflamed seborrheic keratosis (ICD-10 - L82.0) cryotherapy on lesion. There is no tick bite. [employer] [facility] 03-21-2023 Evaluation note* Encounter Date Diagnosis Assessment Notes Treatment Notes Treatment Clinical Notes Dec, Dyspnea, unspecified (ICD-10 - R06.00) Dec, Other abnormalities of breathing (ICD-10 - R06.89) Dec, Abnormal EKG (ICD-10 - R94.31) [employer] [facility] 03-06-2023 Evaluation note* Encounter Date Diagnosis Assessment Notes Treatment Notes Treatment Clinical Notes Dec, Leg edema (ICD-10 - R60.0) Discussed differential including heart failure. Pt would like to get tests to have a cause for her ongoing symptoms. Dec, Dyspnea on exertion (ICD-10 - R06.09) PFT this week. Complete tests as ordered. Pt agrees. [employer] Other Chief complaint Narrative - ReportedPATRICREGINA GREGORY is [facility] a [facility] DO Work Phone: Evaluation noteNo InformationNort Vringo Other Evaluation note* Diagnosis Onset Date Resolution Status Calcified lymph nodes acute Multiple pulmonary nodules a cute [facility] Work Phone: Evaluation note* Diagnosis Onset Date Resolution Status Urinary frequency acute [facility] Work Phone: Evaluation note* Diagnosis Other atopic dermatitis- Primary Bug bite without infection, initial encounter Actinic keratosis documented in this encounter [facility] Diagnosis SOTO (dyspnea on exertion) Other dyspnea and respiratory abnormality Mixed hyperlipidemia Never smoked cigarettes Body mass index (BMI) 28.0-28.9, adult CRLD (chronic restrictive lung disease) Other diseases of lung, not elsewhere classified Personal history of COVID-19 Stage 3a chronic kidney disease (Multi) documented in this encounter [facility] Work Phone: Evaluation note* Diagnosis Sarcoid- Primary Sarcoidosis Shortness of breath documented in this encounter [facility] Work Phone: Evaluation note* Diagnosis Sarcoid Sarcoidosis documented in this encounter [facility] Work Phone: Evaluation note* Diagnosis Sarcoidosis- Primary documented in this encounter [facility] Work Phone: Evaluation note* Diagnosis CRLD (chronic restrictive lung disease)- Primary Other diseases of lung, not elsewhere classified SOTO (dyspnea on exertion) Other dyspnea and respiratory abnormality Stage 3a chronic kidney disease (Multi) Never smoked cigarettes Mixed hyperlipidemia Body mass index (BMI) 28.0-28.9, adult documented in this encounter [facility] Work Phone: Evaluation note* Diagnosis Seborrheic keratosis- Primary Xerosis cutis Other specified disease of sebaceous glands Lentigines Actinic keratosis Neoplasm of unspecified behavior of bone, soft tissue, and skin Capillary angioma Nevus, non-neoplastic Sebaceous hyperplasia of face Seborrheic keratosis, inflamed Personal history of other malignant neoplasm of skin documented in this encounter [facility]* Diagnosis Seborrheic keratosis- Primary Actinic keratosis documented in this encounter [facility] HealthcareHistory general Narrative - Reported* Type Description [...] History T&A Hospitalization History SEE SURGICAL HX [employer] Other History of Present illness Narrative* 77-year-old [...] times, but not consistently, and that the plastics engineer felt that her shortness of breath [...] echocardiogram that was done on 01/16/2023 at [facility]. * Assessment: * 1. 77-year-old with [...] arise, * Sincerely, * Kathleen Castro MD [facility] 250 DO Work Phone: Reason for visit Narrative* PFT (Routine) - Authorized Specialty Diagnoses / Procedures Referred By Michel nolan Referred To Contact Diagnoses Sarcoid Procedures Complete Pulmonary Function Test Pre/Post Bronchodilator (Spirometry Pre/Post/DLCO/Lung Volumes) Cathy Benitez, GLUING MACHINE OPERATOR-ELECTROMATIC TYPIST [address] Pulmonary Medicine, [facility], [place] [address] Phone: tel: fax: Referral ID Status Reason Start Date Expiration Date V isits Requested Visits Authorized [id number] Authorized 10/15/2024 10/15/2025 1 1 [facility] Work Phone: Summary Purpose Family History No [...] 1 Abnormal EKG (R94.31 ) Referral Organization [facility] Referring Provider First Name Alexander Referring Provider Last Name Nabor Referring Provider Specialty Family [facility] Referred Organization [facility] Heart enter Referred Provider Brandt Ramírez Referred Address [address] [facility] [facility] [address] [place] [address] Referred Provider Specialty Cardiology Referral Priority Routine General Notes Bindu Thomas 12:56:01 PM >received today, attachments made, notes locked, and referral faxed Chief Complaint and Reason for Visit Chief Complaint wellness Reason for Visit Urinary frequency Additional Source Comments INFORMATION SOURCE (unrecogn ized section and content) DATE CREATED AUTHOR 10/20/2018 [facility] DATE CREATED AUTHOR AUTHOR'S ORGANIZ ATION 02/13/2023 [facility] DATE CREATED AUTHOR AUTHOR'S ORGANIZ ATION 02/14/2023 [employer] DATE CREATED AUTHOR AUTHOR'S ORGANIZ ATION 03/03/2023 [facility] DATE CREATED AUTHOR AUTHOR'S ORGANIZ ATION 04/07/2023 [facility] DATE CREATED AUTHOR AUTHOR'S ORGANIZ ATION 01/26/2024 [facility] DATE CREATED AUTHOR AUTHOR'S ORGANIZ ATION 10/22/2024 [facility] DATE CREATED AUTHOR AUTHOR'S ORGANIZ ATION 12/24/2024 [facility] DATE CREATED AUTHOR AUTHOR'S ORGANIZ ATION 01/01/2025 [facility] DATE CREATED AUTHOR AUTHOR'S ORGANIZ ATION 03/13/2025 [email or web address] DATE CREATED AUTHOR AUTHOR'S ORGANIZ ATION 03/29/2025 [facility] DATE CREATED AUTHOR AUTHOR'S ORGANIZ ATION 04/25/2025 [facility] dical Specialists EPIC REASON FOR VISIT (unrecogniz ed section and content) Reason Comments Follow-up 1 year Specialty Diagnoses / Procedures Referred By Contac t Referred To Contact Diagnoses SOTO (dyspnea on exertion) Procedures ECG 12 Lead Kathleen Castro MD [address] [place] [address] Phone: tel: fax: Referral ID Status Reason Start Date Expiration Date V isits Requested Visits Authorized [id number] Authorized 09/09/2024 09/09/2025 1 1 Reason Comments Lung Eval Second opinion. Covi d 2020, Shortness of breath Reason Comments follow up sarcodosis Reason Comments Follow-up 3 month Specialty Diagnoses / Procedures Referred By Contac t Referred To Contact Cardiology Diagnoses Mixed hyperlipidemia Procedures Follow Up In Cardiology Kathleen Castro MD [address] [address] Phone: tel: fax: Kathleen Castro MD [address] [place] [address] Phone: tel: fax: Referral ID Status Reason Start Date Expiration Date V isits Requested Visits Authorized [id number] Authorized 09/09/2024 09/09/2025 1 1 Reason Comments Follow-up Suspicious Skin Lesion Care Teams (unrecognized sec tion and content) [...] 22, 2024 End: January 22, 2024 Dayanna Coral Webber [facility] DO Attending Provider Active Start: January 22, 2024 End: January 22, 2024 Pediatric Immunologist Relationship Specialty Start Date End Date Alexander Tomlin MD [address] [place] [address] PCP - General 01/18/23 Pediatric Immunologist Relationship Specialty Start Date End Date Alexander Tomlin MD [address] [place] [address] PCP - General 01/18/23 Pediatric Immunologist Relationship Specialty Start Date End Date Alexander Tomlin MD [address] [place] [address] PCP - General 01/18/23 Pediatric Immunologist Relationship Specialty Start Date End Date Alexander Tomlin MD [address] [place] [address] PCP - General 01/18/23 Goals (unrecognized section [...] BE BASED ON THE PRIMARY CLINICAL RECORDS. [facility]. provides no warranty or guarantee of the accuracy or completeness of information in this document.
== END 2025-05-12 10:05 | disposition home or self-care (01) ==
LOC: CARD 10:04
PROVIDERS: PCP Family Medicine
DX: I25.5 Ischemic cardiomyopathy (principal)
CPT/HCPCS: 93306

== ENCOUNTER 2025-05-14 10:05 | Outpatient (OUT) | payer MEDICARE, OTHER, SELFPAY ==
[2025-05-14 11:01] LABS: Anion Gap 12.1; Blood Urea Nitrogen 16.0 mg/dL (7.0-18.0); Calcium 10.0 mg/dL (8.5-10.1); Carbon Dioxide 30.5 mmol/L (21.0-32.0); Chloride 106 mmol/L (98-107); Estimated GFR (African America 58 (>=60 mL/min/1.73m^2); Estimated GFR (Non-African Ame 48 (>=60 mL/min/1.73m^2); Glucose 93 mg/dL (74-106); Potassium 4.6 mmol/L (3.5-5.1); Sodium 144 mmol/L (136-145)
== END 2025-05-14 10:06 | disposition home or self-care (01) ==
LOC: LAB 10:07
PROVIDERS: PCP Family Medicine
DX: I25.5 Ischemic cardiomyopathy (principal)
CPT/HCPCS: 36415; 80048

== ENCOUNTER 2025-05-21 08:40 | Outpatient (OUT) | payer MEDICARE, OTHER, SELFPAY ==
--- OUTSIDE RECORDS SUMMARY | 2024-08-27 04:30 | XMS_ITS ---
Author Organization [facility] in [place] Address [address] [place] [address] Care Team Providers Care Icu Registered Nurse Name Role Phone Katerina Mortensen Primary Care Provider Alexandru Arciniega [phone] Allergies Allergen (clinical drug ingredient) Drug/Non Drug Allergy documented on EMR Reaction Allergy Type Onset Date Status Iodine rash Drug Allergy Active REASON FOR VISIT 3MO-PULMONARY NODULES, COUGH Medications Medication SIG (Take, Route, Frequency, Duration) Notes Start Date End Date Status Symbicort 80-4.5 MCG/ACT 2 puffs Inhalation BID for 30 days Rinse after use; Dispense 1 inhaler 04/02/2024 Active Albuterol Sulfate HFA 108 (90 Base) MCG/ACT 2 puffs as needed Inhalation every 4 hrs Not-Nilo cevallos Social History Tobacco Use: Social History Observation Description Date Details (start date - stop date) Never Smoker NA - NA Tobacco Use/Smoking Question Answer Notes Patient is a nonsmoker Tobacco Control (Standard) Question Answer Notes Tobacco use: Nonsmoker Problems Problem Type SNOMED Code ICD Code Onset Dates Problem Status W/U Status Risk Notes Problem Postnasal drip (33605816) Postnasal drip (R09.82) Active confirmed Vital Signs Weight 165.2 lbs 08/27/2024 Height 64 in 08/27/2024 Blood pressure systolic 154 mm Hg 08/27/20 24 Blood pressure diastolic 53 mm Hg 024 Temperature 95.4 degrees Fahrenheit 08/27/20 24 Heart Rate 84 /min 08/27/2024 Respiratory Rate 18 /min 08/27/2024 BMI 28.35 kg/m2 08/27/2024 Oximetry 93 % 08/27/2024 Encounters Encounter Location Date Provider Diagnosis Pulmonary Medicine [place] [address] [place] [address] 08/27/2024 Alexandru Moncada Multiple pulmonary nodules R91.8 ; Chronic cough R05.3 ; Postnasal drip R09.82 ; Dysphagia, oropharyngeal phase R13.12 ; Calcified lymph nodes I89.8 and History of COVID-19 Z86.16 Assessments Encounter Date Diagnosis (ICD Code) Assessment Notes Treatment Notes Treatment Clinical Notes Section Notes 08/27/2024 Multiple pulmonary nodules (ICD-10 - R91.8) No change on chest CT 07/04/3034 compared to 03/13/2024 & 12/25/2023, but increased slightly in size and number when compared to 11/03/2022. Largest nodules are measuring up to 1.5cm. Bronchoscopy 01/22/2024 was non-diagnostic. Etiology unclear. Recommended continued monitoring for now with 6 month F/U. I offered patient the option for referral to a tertiary care center for a second opinion, but she declined at this time. 08/27/2024 Chronic cough (ICD-10 - R05.3) Symbicort did not seem to make much of a difference - she complained that it did not improve her cough and it only screwed up my vocal cords after 3 weeks of use. She said she tried to decrease use down to 1 puff a day without any improvement. She complains of sinus drainage/congest ion. Suggested she be treated for this to see if this helps her cough, as I explained the 3 most common causes of chronic cough are asthma, GERD, and postnasal drip. She answered that she doesn't do nasal sprays. I replied then she may need to just deal with the cough then if she is not willing to try to treat it. She then answered that she would be willing to try a nasal regimen. 08/27/2024 Postnasal drip (ICD-10 - R09.82) I outlined a nasal regimen with her and typed it out for reference, including saline rinses and either Flonase or Nasocort OTC. She can supplement it with either Romina or Zyrtec. 08/27/2024 Dysphagia, oropharyngeal phase (ICD-10 - R13.12) Barium swallow 03/04/2024 showed normal swallowing. No further complaints of aspiration/choki ng at ths time. Denies GERD at this time. 08/27/2024 Calcified lymph nodes (ICD-10 - I89.8) Sequelae of old sarcoidosis? MOJGAN level normal, but that by itself is non-diagnostic. Lymphocytes are normal range on BAL (~13%); CD4/CD8 count was not completed by lab... 08/27/2024 History of COVID-19 (ICD-10 - Z86.16) 07/2021 Plan Of Treatment Treatment Notes Assessment Notes Multiple pulmonary nodules No change on chest CT 07/04/3034 compared to 03/13/2024 & 12/25/2023, but increased slightly in size and number when compared to 11/03/2022. Largest nodules are measuring up to 1.5cm. Bronchoscopy 01/22/2024 was non-diagnostic. Etiology unclear. Recommended continued monitoring for now with 6 month F/U. I offered patient the option for referral to a tertiary care center for a second opinion, but she declined at this time. Chronic cough Symbicort did not seem to make much of a difference - she complained that it did not improve her cough and it only screwed up my vocal cords after 3 weeks of use. She said she tried to decrease use down to 1 puff a day without any improvement. She complains of sinus drainage/congestion. Suggested she be treated for this to see if this helps her cough, as I explained the 3 most common causes of chronic cough are asthma, GERD, and postnasal drip. She answered that she doesn't do nasal sprays. I replied then she may need to just deal with the cough then if she is not willing to try to treat it. She then answered that she would be willing to try a nasal regimen. Postnasal drip I outlined a nasal regimen with her and typed it out for reference, including saline rinses and either Flonase or Nasocort OTC. She can supplement it with either Romina or Zyrtec. Dysphagia, oropharyngeal phase Barium swallow 03/04/2024 showed normal swallowing. No further complaints of aspiration/choking at ths time. Denies GERD at this time. Calcified lymph nodes Sequelae of old sarcoidosis? MOJGAN level normal, but that by itself is non-diagnostic. Lymphocytes are normal range on BAL (~13%); CD4/CD8 count was not completed by lab... Future Test Test Name Order Date CT Chest w/o contrast 12/28/2024 Next Appt Details Follow Up: 5 Months, Reason: Pulmonary nodules, cough Procedure Notes * Category Sub-Category Detail Notes PFT Data: 01/04/2023-FEV1/FV C: 76%-FEV1: 63%-FVC: 62%-No bronchodilator response-RV: 76%-T%-DLCO: Moderately-severe reduction @ 54%-Flow-volume loop: Moderate restriction pattern Progress Notes * Leeanne CABAN MDOB: [birth year] (78 yo F)Acc No.[id number]:08/27/2024 Follow Up Patient: Leeanne BARRAZA Provider: Jodi Moncada DO :1945 A ge:78 Y S ex:Female Date:08/27/2024 Address:[address] [place] [address], [place], [id number] Pcp:Katerina Mortensen Check In:08:32 AM ESTCheck O ut:09:06 AM EST Subjective: * Chief Complaints: * 3 MO-PULMONARY NODULES, COUGH * HPI: G eneral: Reviewed chest CT 07/04/2024 with patient. When compared to prior testing 03/13/2024, 11/03/2022, and 03/10/2022, there has been no change in the multiple pulmonary nodules' size or number when compared to 03/13/2024, but they had increased from 03/10/2022. Prior evaluation via bronchoscopy was non-diagnostic. There is no change in the mediastinal or bilateral hilar lymph nodes. She continues to complain of a daily productive cough, mainly in the morning. Last visit, she was started on Symbicort 80. She states all Symbicort did was screwed up my vocal cords. She used Symbicort for 3 weeks without any significant change in her cough or dyspnea. She does admit to having sinus congestion and uses Claritin every now and then. I discussed nasal sprays, to which she replied I don't do them. MA Intake Comments:. Patient presents for a follow-up for Cough. Patient recently had a CT Chest performed on 07/04/2024. Patient is using Symbicort daily with benefit. Patient complains of a productive cough in the morning with clear mucus. Patient denies any hemoptysis.. * ROS: G eneral/Constitutional: Fever or sweats d enies. C hange of appetite d enies. C hills d enies. W eight Change d enies. H EENT: Dry mouth d enies. S ore throat d enies. O ral Ulcers d enies. P ost Nasal Drip D enies. C ongestion D enies. H oarseness?Denies. C ardiovascular: Tachycardia d enies. C hest pain d enies. P alpitations d enies. R espiratory: Chest tightness d enies. P leurisy D enies. D yspnea w ith strenuous activity. C ough c ough - mainly in the morning. H emoptysis d enies. W heezing d enies. G astrointestinal: Acid Reflux/GERD/Heartburn d enies. D ysphagia h istory of choking and aspiration of food and liquids. M usculoskeletal: Arthralgias/joint pain D enies. S kin: Easy bruising d enies. R ayse d enies. ? N eurologic: Dizziness/Lightheadedness d enies. S eizures d enies. T remor d enies. H ematology: Abnormal Bleeding d enies. P sychiatric: Anxiety d enies. * Active Problem List R09.82 Postnasal drip Modified On:08/27/2024/U Status:confirmed R91.8 Multiple pulmonary n odules Modified On:01/31/2024/U Status:confirmed I89.8 Calcified lymph node s Modified On:01/31/2024/U Status:confirmed Z86.16 History of COVID-19 Modified On:01/31/2024/U Status:confirmed R13.12 Dysphagia, oropharyn geal phase Modified On:04/03/2024W/U Status:confirmed * Medical History: * Surgical History: t onsillectomy and adenoidectomy section x3 dilatation and curettage Bronchoscopy 01/22/2024 * Hospitalization/Major Diagno stic Procedure: D enies Past Hospitalization * Family History: F ather: 79 yrs, Myocardial infarction. M other: breast cancer, diagnosed with Other malignant neoplasm of unspecified site. * Social History: T obacco Use: T obacco Control (Standard) T obacco use: N onsmoker Electronic Cigarette use C urrent user N o Tobacco Use/Smoking P atient is a n onsmoker M iscellaneous: C affeine: 1-2 cups per day- Coffee. 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 D rugs/Alcohol: D rugs H ave you used drugs other than those for medical reasons in the past 12 months? N o D oes the Patient have a History of Drug Abuse in the Past? N o Caffeine I ntake: 1 -2 cups per day Coffee Do you drink alcohol?: Yes, Socially. Do you smoke marijuana?: Denies. * Medications: T akingSymbicort(Budesonide-Formoterol Fumarate) 80-4.5 MCG/ACT Aerosol 2 puffs Inhalation BID Rinse after use; Dispense 1 inhalerTaking Symbicort(Budesonide-Formoterol Fumarate) 80-4.5 MCG/ACT Aerosol 2 puffs Inhalation BID Rinse after use; Dispense 1 inhalerNot-Taking/PRNAlbuterol Sulfate HFA 108 (90 Base) MCG/ACT Aerosol Solution 2 puffs as needed Inhalation every 4 hrs Medication List reviewed and reconciled with the patientNot-Taking/PRN Albuterol Sulfate HFA 108 (90 Base) MCG/ACT Aerosol Solution 2 puffs as needed Inhalation every 4 hrs Medication List reviewed and reconciled with the patient * Allergies: I odine: rash - Allergy - Criticality [place][Allergies Verified] Objective: * Vitals: W t:165.2lbs, Ht: 64 in, BP:sittin/53mm Hg, Temp:Forehead:95.4F, HR:84/min, RR:18/min, BMI:28.35Index, Oxygen sat %:Room Air:93%, Ht-cm: 162.56 cm, Wt-k.93 kg. * Examination: E xam: GENERAL APPEARANCE: A ppears stated age. Skin N ormal. Mouth P ink and moist. Oropharynx M allampati Class III. Trachea M idline. Chest N ormal. Respiratory Normal M ovements, E ffort N ormal. Auscultation B reath sounds were diminished but clear to auscultation today.. Cardiac R egular rate and rhythm. Gastrointestinal N ormal. Vascular N o edema. Musculoskeletal N ormal posture. Neurological F ocal, intact. Psychiatric A lert and oriented x3. Mentation/Cognition N ormal. Assessment: * Assessment: 1. M ultiple pulmonary nodules - R91.8 (Primary) 2 . C hronic cough - R05.3 3 .?Postnasal drip - R09.82 4 . D ysphagia, oropharyngeal phase - R13.12 5 . C alcified lymph nodes - I89.8 6 . H istory of COVWI-19 - Z86.16, 07/2021 Plan: * Treatment: 2. C hronic cough Notes: Symbicort did not seem to make much of a difference - she complained that it did not improve her cough and it only screwed up my vocal cords after 3 weeks of use. She said she tried to decrease use down to 1 puff a day without any improvement. She complains of sinus drainage/congestion. Suggested she be treated for this to see if this helps her cough, as I explained the 3 most common causes of chronic cough are asthma, GERD, and postnasal drip. She answered that she doesn't do nasal sprays. I replied then she may need to just deal with the cough then if she is not willing to try to treat it. She then answered that she would be willing to try a nasal regimen. 3. P ostnasal drip Notes: I outlined a nasal regimen with her and typed it out for reference, including saline rinses and either Flonase or Nasocort OTC. She can supplement it with either Romina or Zyrtec. 4. D ysphagia, oropharyngeal phase Notes: Barium swallow 03/04/2024 showed normal swallowing. No further complaints of aspiration/choking at ths time. Denies GERD at this time. 5. C alcified lymph nodes Notes: Sequelae of old sarcoidosis? MOJGAN level normal, but that by itself is non-diagnostic. Lymphocytes are normal range on BAL (~13%); CD4/CD8 count was not completed by lab... * Procedures: P FT: Data: 01/04/2023 -FEV1/FVC: 76% -FEV1: 63% -FVC: 62% -No bronchodilator response -RV: 76% -T% -DLCO: Moderately-severe reduction @ 54% -Flow-volume loop: Moderate restriction pattern . * Procedure Codes: * Preventive Medicine: COVID Vaccination: H as patient had COVID Vaccination? COVID Vaccination Y es 10/25/2021 Immunization Status: P neumovacc p neumovacc 23- 04/09/2015. I nfluenza P t Refused. Screenings/Counseling: F ALL RISK SCREENING Fall Risk Assessment: N o falls in the past year Are you afraid of falling? N o T [employer] ACTION PLAN Exclusion: M edical Reason Non Smoker Type of Medical Reason: N ot indicated F ROSE MARY EXCLUSION Reason: P atient Reason refused/declined Type of Patient Reason: D rug declined by patient B [place] ACTION PLAN Above Normal BMI Follow-up D ietary management education, guidance, and counseling * Follow Up: 5 Months (Reason: Pulmonary nodules, cough) * * Sign off status: Completed Visit Status: C HK (Check Out) true * Provider: Jodi Moncada DO Date: 1 Generated for Jon broderick/Milla/eTterranceitting on: 0 05/21/2025 08:46 AM EDT History and Physical Notes * HPI (History of Present Illness) Category Sub-Category Detail Notes Category Not es General Patient present s for a follow-up for Cough. Patient recently had a CT Chest performed on 07/04/2024. Patient is using Symbicort daily with benefit. Patient complains of a productive cough in the morning with clear mucus. Patient denies any hemoptysis. Examination Category Sub-Category Detail Notes Category Not es Exam GENERAL APPEARANCE: Appears stated age Skin Normal Mouth [place] and moist Trachea Midline Chest Normal Respiratory Normal Movements, Ef fort Normal Auscultation Breath sounds were d iminished but clear to auscultation today. Cardiac Regular rate and rhy thm Gastrointestinal Normal Vascular No edema Musculoskeletal Normal posture Neurological Focal, intact Psychiatric Alert and oriented x 3 Mentation/Cognition Normal Oropharynx Mallampati Class III
--- OUTSIDE RECORDS SUMMARY | 2025-01-20 07:21 | XMS_ITS ---
Author Organization [facility] in [place] Address [address] [place] [address] Care Team Providers Care Angle Shear Set Up Operator Name Role Phone Katerina Mortensen Primary Care Provider Alexandru Arciniega [phone] Chest Order Encounters Encounter Location Date Provider Diagnosis Pulmonary Medicine [place] [address] [place] [address] 01/20/2025 Alexandru Moncada Plan Of Treatment No Information Progress Notes * Leeanne CABAN MDOB: [birth year] (79 yo F)Acc No.[id number]:01/20/2025 Patient: Jodi DENNISON Leeanne M :1945 A ge:79 Y S ex:Female Address:[address] [facility] [address] * true * Date: Generated for Printi ng/Faxing/eTransmitting on: 0 05/21/2025 08:46 AM EDT
--- OUTSIDE RECORDS SUMMARY | 2025-01-22 05:00 | XMS_ITS ---
Author Organization [facility] in [place] Address [address] [place] [address] Care Team Providers Care Shuttle Fixer Name Role Phone Katerina Mortensen Primary Care Provider Alexandru Arciniega [phone] REASON FOR VISIT 6MO-PULMONARY NODULES, COUGH Encounters Encounter Location Date Provider Diagnosis Pulmonary Medicine [place] [address] [place] [address] 01/22/2025 Alexandru Moncada Plan Of Treatment No Information Progress Notes * Leeanne CABAN MDOB: [birth year] (79 yo F)Acc No.[id number]:01/22/2025 UNLOCKED PROGRESS NOTE Follow Up Patient: Nicky BARRAZAricvida Young Provider: Jodi Moncada DO :1945 A ge:79 Y S ex:Female Date:01/22/2025 [facility]:[address] [id number] Pcp:Katerina Mortensen Subjective: * Chief Complaints: * 1 . 6MO-PULMONARY NODULES, COUGH. * Medical History: Objective: * Vitals: Assessment: Plan: * Treatment: * * Electronic signature of Elena Moncada DO on 05/21/2025 at 08:45 AM EDT Sign off status: Pending Visit Status: C ANC (Cancelled) * Provider: Jodi Moncada DO Date: 0 01/22/2025 Generated for Claudioi ng/Faolegariog/eTransmitting on: 0 05/21/2025 08:45 AM EDT
--- OUTSIDE RECORDS SUMMARY | 2025-05-19 10:30 | XMS_ITS | Encounter Summary ---
Author Organization [facility] Address [address] [place] [address] Care Team Providers Care Egg Sorter Name Role Phone Katerina Mortensen MD Primary Care Provider [phone] Encounter Details Date Type Department Care Team (Late st Contact Info) Description 05/19/2025 10:30 AM EDT Office Visit [facility] [address] [place] [address] Doug Stern MD [address] [facility] [address] [facility] [place] [address] Coronary artery disease involving point [place] coronary artery of point [place] heart without angina pectoris (Primary Dx); Heart failure with improved ejection fraction (HFimpEF) (CMS/HCC); Mixed hyperlipidemia Social History Tobacco Use Types Packs/Day Years Used Date Smoking Tobacco: Never Passive Smoke Exposure: Never Smokeless Tobacco: Never Alcohol Use Standard Drinks/Week Comments Not Currently 0 (1 standard drink = 0.6 oz pur e alcohol) [facility] Utilities Answer Date Recorded In the past 12 months has [employer], gas, oil, or water [place] threatened to shut off services in your [...] and heating? Patient unable to answer 03/12/2025 PHQ-2 Answer Date Recorded Patient Health Questionnaire-2 Score 0 05/19/2025 Transportation Answer Date Recorded In the past [...] any time in the past 12 m [facility], were you homeless or living in a group home (including now)? Patient unable to answer 03/12/2025 [...] Heterosexual or Straight 06/2025 2:31 PM EDT documented as of this encounter Last Filed Vital Signs Vital Sign Reading Time Taken Comments Blood Pressure 104/60 05/19/2025 10:47 AM EDT Pulse 55 05/19/2025 10:47 AM EDT Temperature - - Respiratory Rate - - Oxygen Saturation 98% 05/19/2025 10:47 AM EDT Inhaled Oxygen Concentration - - Weight 70.8 kg (156 lb) 05/19/2025 10:47 AM EDT Height 165.1 cm (5' 5 ) 05/19/2025 10:47 AM EDT Body Mass Index 25.96 05/19/2025 10:47 AM EDT documented in this encounter Progress Notes * Doug Stern MD - 05/19/2025 10:30 AM EDT Images from the original note were not included. [place] [facility] Subjective Leeanne Caban is a 79 y.o. year old female patient being seen for follow up echo and labs. Per Abraham Shaffer CNP s/p echo - patient able to return LifeVest due to increased EF on echo. She is not taking Farxiga and she doesn't know why. Says she's breathing much better now. Patient Active Problem List Diagnosis Acute hypoxemic respiratory failure (CMS/HCC) Acute combined systolic and diastolic heart failure (CMS/HCC) NSTEMI (non-ST elevated myocardial infarction) (CMS/HCC) Viral pneumonia Sarcoidosis Coronary artery disease Coronary artery disease involving point [place] ira coronary artery of point [place]a heart without angina pectoris Weakness Actinic keratosis Benign neoplasm of scalp and skin of neck Benign neoplasm of skin of lower limb, including hip Body mass index (BMI) 28.0-28.9, adult Calcified lymph nodes CRLD (chronic restrictive lung disease) SOTO (dyspnea on exertion) Dysphagia, oropharyngeal phase Epiretinal membrane History of severe acute respiratory syndrome coronavirus 2 (SARS-CoV-2) disease Inflamed seborrheic keratosis Multiple pulmonary nodules Never smoked cigarettes Exudative age-related macular degeneration (CMS/HCC) Postnasal drip Stage 3a chronic kidney disease (CMS/HCC) No family history on file. Social History Tobacco Use Smoking status: Never Smokeless tobacco: Never Substance Use Topics Alcohol use: Not Currently Drug use: Never CINTHIA Leeanne is seen in follow-up. She is a 79 y.o. female who was admitted in February 2025 with acute hypoxic respiratory failure and was found to have EKG changes and elevation in cardiac enzymes consistent with acute myocardial infarction. In addition she was found to have pneumonia. She was found to have acute systolic heart failure and LV ejection fraction of 35%. cardiac catheterization on 03/14/2025 showed severe circumflex stenosis and total occlusion of the right coronary artery which were treated with drug-eluting stents. She had mild disease in the left main and LAD. She also had mildly elevated filling pressures and pulmonary pressures. She was maintained on LifeVest therapy since discharge. today she is seen in follow-up with a recent follow-up echocardiogram. That echocardiogram showed improvement in ventricular systolic function to normal. She has returned the LifeVest. Today she reports that she has no chest pain. Her shortness of breath on exertion has improved significantly. She has no leg swelling. She has been taking medications as prescribed including DAPT andstatin therapy as well as metoprolol succinate, Entresto and spironolactone. She had stopped Farxiga for unclear reason. Review of Systems Cardiovascular: Positive for dyspnea on exertion (much better). All other systems reviewed and are negative. Objective Visit Vitals BP 104/60 (BP Location: Left arm, Patient Position: Sitting) Pulse 55 Ht 1.651 m (5' 5 ) Wt 70.8 kg (156 lb) SpO2 98% BMI 25.96 kg/m?? Smoking Status Never BSA 1.8 m?? Physical Exam Constitutional: Appearance: She is well-developed. She is not ill-appearing. HENT: Head: Normocephalic and atraumatic. Nose: Nose normal. Eyes: General: No scleral icterus. Pupils: Pupils are equal, round, and reactive to light. Neck: Thyroid: No thyromegaly. Vascular: No JVD. Cardiovascular: Rate and Rhythm: Normal rate and regular rhythm. Pulses: Radial pulses are 2+ on the right side and 2+ on the left side. Heart sounds: Normal heart sounds. No murmur heard. No friction rub. No gallop. Pulmonary: Effort: Pulmonary effort is normal. No respiratory distress. Breath sounds: Normal breath sounds. No wheezing or rales. Chest: Chest wall: No tenderness. Abdominal: General: Bowel sounds are normal. There is no distension. Palpations: Abdomen is soft. Tenderness: There is no abdominal tenderness. Musculoskeletal: General: No swelling. Cervical back: Neck supple. Skin: General: Skin is warm and dry. Neurological: General: No focal deficit present. Mental Status: She is alert and oriented to person, place, and time. Psychiatric: Mood and Affect: Mood normal. Behavior: Behavior is cooperative. Judgment: Judgment normal. Allergies Allergies Allergen Reactions Iodine Unknown and Rash Medications Current Outpatient Medications: albuterol 90 mcg/actuation inhaler, Inhale 2 puffs every 6 (six) hours if needed for wheezing., Disp: , Rfl: ascorbic acid (Vitamin C) 1,000 mg tablet, Take 1,000 mg by mouth in the morning., Disp: , Rfl: aspirin 81 mg EC tablet, Take 1 tablet (81 mg) by mouth in the morning for 360 doses., Disp: 30 tablet, Rfl: 11 atorvastatin (Lipitor) 40 mg tablet, Take 1 tablet (40 mg) by mouth at bedtime for 93 doses., Disp:30 tablet, Rfl: 3 clopidogrel (Plavix) 75 mg tablet, Take 1 tablet (75 mg) by mouth in the morning for 360 doses., Disp: 30 tablet, Rfl: 11 diphenhydrAMINE (BENADryl) 25 mg capsule, Take 50 mg by mouth every 6 (six) hours if needed for sleep., Disp: , Rfl: furosemide (Lasix) 20 mg tablet, Take 1 tablet (20 mg) by mouth in the morning., Disp: 30 tablet, Rfl: 0 metoprolol succinate XL (Toprol-XL) 100 mg 24 hr tablet, Take 1 tablet (100 mg) by mouth in the morning for 93 doses. Do not crush or chew., Disp: 30 tablet, Rfl: 3 sacubitril-valsartan (Entresto) 24-26 mg tablet, Take 1 tablet by mouth two times daily., Disp: 30 tablet, Rfl: 1 spironolactone (Aldactone) 25 mg tablet, Take 1 tablet (25 mg) by mouth in the morning for 93 doses., Disp: 30 tablet, Rfl: 3 alendronate-vitamin D3 (Fosamax Plus D) 70 mg- 5,600 unit tablet, Take 1 tablet by mouth every 7 (seven) days. Take in the morning with a full glass of water, on an empty stomach, and do not take anything else by mouth or lie down for the next 30 min. (Patient not taking: Reported on 05/19/2025), Disp: , Rfl: dapagliflozin propanediol (Farxiga) 10 mg, Take 1 tablet (10 mg) by mouth in the morning for 94 doses. (Patient not taking: Reported on 05/19/2025), Disp: 30 tablet, Rfl: 3 loratadine (Claritin Reditabs) 10 mg disintegrating tablet, Take 10 mg by mouth in the morning. (Patient not taking: Reported on 05/19/2025), Disp: , Rfl: midazolam (Versed) 2 mg/mL syrup, Take by mouth 1 (one) time. (Patient not taking: Reported on 05/19/2025), Disp: , Rfl: pantoprazole (ProtoNix) 20 mg EC tablet, Take 1 tablet (20 mg) by mouth before breakfast. Do not crush, chew, or split., Disp: 90 tablet, Rfl: 3 Recent Labs Lab Results Component Value Date NA 138 03/20/2025 K 3.8 03/20/2025 CL 106 03/20/2025 CO2 29 03/20/2025 BUN 19 03/20/2025 CREATININE 0.90 03/20/2025 GLUCOSE 90 03/20/2025 CALCIUM 8.5 (L) 03/20/2025 No results found for: CKTOTAL , CKMB , CKMBINDEX , TROPONINI Lab Results Component Value Date WBC 6.34 03/20/2025 HGB 11.3 (L) 03/20/2025 HCT 34.5 (L) 03/20/2025 MCV 93.8 03/20/2025 PLT 221 03/20/2025 Lab Results Component Value Date CHOL 173 03/14/2025 TRIG 153 (H) 03/14/2025 HDL 42 03/14/2025 LDL 100. Blood testing 05/14/2025: Potassium 4.6, BUN 16, creatinine 1.11, EGFR 48. Imaging and other tests Echocardiogram 05/12/2025: 1. Global left atrial systolic function is normal; visually estimated ejection fraction is 55 to 60%. 2. Normal right ventricular size and systolic function. 3. Mild ventricular hypertrophy. 4. Normal diastolic function. 5. No significant valvular abnormalities. 6. Anterior free space; trivial effusion versus fat pad. ECG 03/16/2025: Normal sinus rhythm with sinus arrhythmia Nonspecific ST and T wave abnormality Abnormal ECG Cardiac catheterization 03/14/2025: Impression/Findings: Severe 90% stenosis in the proximal [...] output and cardiac index. Uncontrolled systemic hypertension. Echocardiogram 03/13/2025: Left Ventricle: The left ventricle is normal [...] for strain imaging; complete echo done 03/12/2025 Echocardiogram 03/12/2025: Left Ventricle: The left ventricle is normal [...] pericardial effusion. Overall Conclusions: Due to suboptimal imagingLumason contrast was administered for opacification and better delineation of endocardial borders. Assessment/Plan Diagnoses and all orders for this visit: Coronary artery disease involving point hope ira coronary artery of point hope ira heart without angina pectoris - Lipid panel; Future - pantoprazole (ProtoNix) 20 mg EC tablet; Take 1 tablet (20 mg) by mouth before breakfast. Do not crush, chew, or split. Heart failure with improved ejection fraction (HFimpEF) ([facility]) Mixed hyperlipidemia - Lipid panel; Future She is doing very well from a cardiac perspective. I reviewed with her and her family members the coronary angiogram images along with the stenting procedure. I explained to her that she needs to continue dual antiplatelet therapy with aspirin and clopidogrel for at least 1 year after the myocardial infarction. I am going to prescribe pantoprazole 20 mg daily while she is on DAPT for gastric protection. Continue current statin therapy. I will check a lipid panel to see if the LDL is at target. I indicated to her that we should target an LDL level less than 55. I reviewed her blood pressure and heart rate monitoring and both are at target. Continue the same. Her recent echocardiogram showed normalization of ventricular systolic function. I explained to herthat we should continue current Entresto, metoprolol succinate and spironolactone in order to avoidrisk of relapse of ventricular dysfunction. She continues to be enrolled in cardiac rehab. I will plan on seeing her follow-up in 6 months. Follow up in about 6 months (around 11/19/2025). Doug Stern MD documented in this encounter Plan of Treatment Upcoming Encounters Date Type Department Care Team (Late st Contact Info) Description 05/27/2025 1:00 PM EDT Appointment [facility] Pulmonary Function Testing [address] [facility] [address] [place] [address] 07/07/2025 2:10 PM EDT Appointment [facility] CT Imaging [address] [place] [address] 08/05/2025 12:30 PM EDT Office Visit [facility] Pulmonary [address] [place] [id number] Brandt Helton MD [address] [place] [address] Scheduled Orders Name Type Priority Associated Diagnoses Orde r Schedule Lipid panel Lab Routine Coronary artery disease involving point hope ira coronary artery of point hope ira heart without angina pectoris Mixed hyperlipidemia Expected: 05/19/2025 (Approximate), Expires: 05/19/2026 documented as of this encounter Visit Diagnoses Diagnosis Coronary artery disease involving point hope ira coronary artery of point hope ira heart without angina pectoris- Primary Heart failure with improved ejection fraction (HFimpEF) (CMS/[facility]) Mixed hyperlipidemia documented in this encounter Care Teams Egg Sorter Relationship Specialty Start Date End Date Katerina Mortensen MD [address] [place] [address] PCP - General 03/19/25 documented as of this encounter
--- OUTSIDE RECORDS SUMMARY | 2025-05-19 15:30 | XMS_ITS | Encounter Summary ---
Author Organization [facility] Address [address] [place] [address] Care Team Providers Care Process Manager Name Role Phone Katerina Mortensen MD Primary Care Provider [phone] Reason for Referral * Imaging (Routine) - Pending Review Specialty Diagnoses / Procedures Referred By Michel nolan Referred To Contact Radiology Diagnoses Sarcoidosis Procedures CT chest wo IV contrast Cm Clement MD [address] [place] [address] Phone: tel: fax: Referral ID Status Reason Start Date Expiration Date V isits Requested Visits Authorized [id number] Pending Review 05/19/2025 05/19/2026 1 1 Reason for Visit * Reason Comments Breathing Problem Respiratory failure Sarcoidosis * Consultation (Routine) - Pending Review Specialty Diagnoses / Procedures Referred By Michel nolan Referred To Contact Pulmonary Disease / Pulmonology Diagnoses Sarcoidosis Procedures NM OFFICE/OUTPATIENT [facility] 60 MINUTES Cm Clement MD [address] [place] [address] Phone: tel: fax: [facility] [address] [place] [address] Phone: tel: fax: Referral ID Status Reason Start Date Expiration Date Visits Requested Visits Authorized [id number] Pending Review Specialty Services Required 03/20/2025 03/20/2026 6 6 Encounter Details Date Type Department Care Team (Late st Contact Info) Description 05/19/2025 3:30 PM EDT Consult [facility] [address] [place] [phone] Brandt Helton MD [address] [place] [address] SOTO (dyspnea on exertion) (Primary Dx); Sarcoidosis; Chronic systolic heart failure (CMS/HCC); Coronary artery disease due to calcified coronary lesion Social History Tobacco Use Types Packs/Day Years Used Date Smoking Tobacco: Never Passive Smoke Exposure: Never Smokeless Tobacco: Never Alcohol Use Standard Drinks/Week Comments Not Currently 0 (1 standard drink = 0.6 oz pur e alcohol) [facility] Utilities Answer Date Recorded In the past [...] time in the past 12 m [facility], were you homeless or living in a fci (including now)? Patient unable to answer 03/12/2025 [...] Sign Reading Time Taken Comments Blood Pressure 117/74 05/19/2025 3:30 PM EDT Pulse 62 05/19/2025 3:30 PM EDT Temperature - - Respiratory Rate 14 05/19/2025 3:30 PM EDT Oxygen Saturation 99% 05/19/2025 3:30 PM EDT ra at rest Inhaled Oxygen Concentration - - Weight 72.6 kg (160 lb) 05/19/2025 3:30 PM EDT Height 161.3 cm (5' 3.5 ) 05/19/2025 3:30 PM EDT Body Mass Index 27.9 05/19/2025 3:30 PM EDT documented in this encounter Functional Status documented as of this encounter Plan of Treatment Upcoming Encounters Date Type Department Care Team (Late st Contact Info) Description 05/27/2025 1:00 PM EDT Appointment [facility] Pulmonary Function Testing [address]rd [place] [phone] 07/07/2025 2:10 PM EDT Appointment [facility] CT Imaging [address] [place] [phone] 08/05/2025 12:30 PM EDT Office Visit [facility] [address] [place] [phone] Brandt Helton MD [address] [place] [address] Scheduled Orders Name Type Priority Associated Diagnoses Orde r Schedule CT chest wo IV contrast Imaging Routine Sarcoidosis Expected: 05/19/2025, Expires: 05/19/2026 Pulmonary function testing Spirometry; Body Box (lung volumes, airway resistance, and SVC), DLCO PFT Routine SOTO (dyspnea on exertion) Expected: 05/19/2025 (Approximate), Expires: 05/19/2026 documented as of this encounter Visit Diagnoses Diagnosis SOTO (dyspnea on exertion)- Primary Other dyspnea and respiratory abnormality Sarcoidosis Chronic systolic heart failure (CMS/HCC) Chronic systolic heart failure Coronary artery disease due to calcified coronary lesion documented in this encounter Care Teams Process Manager Relationship Specialty Start Date End Date Katerina Mortensen MD [address] [place] [address] PCP - General 03/19/25 documented as of this encounter
--- OUTSIDE RECORDS SUMMARY | 2025-05-21 08:46 | XMS_ITS | Encounter Summary ---
Author Organization [facility] Address [address] [place] [address] Phone Care Team Providers Care Agronomy Technician Name Role Phone Katerina Mortensen MD Primary Care Provider [phone] Encounter Details Date Type Department Care Team (Late st Contact Info) Description 02/27/2023 Orders Only [facility] [address] [place] [address] Conversion, Onbase Social History Tobacco Use Types [...] on filedocumented in this encounter Care Teams Agronomy Technician Relationship Specialty Start Date End Date Katerina Mortensen MD [address] [place] [address] [address] [place] [address] PCP - General 01/18/23 documented as of this encounter
--- OUTSIDE RECORDS SUMMARY | 2025-05-21 08:46 | XMS_ITS | Clinical Summary ---
Author Organization [facility] Address [address] [place] [address] Care Team Providers Care Pearl Fisherman Name Role Phone Unavailable Primary Care Provider [...] DERM [address] [place] [phone] Breanna Landaverde MD Seborrheic keratosis (Primary Dx); Actinic keratosis 04/24/2025 Bamboo flowsheet [facility] [address] [place] [phone] Breanna Landaverde MD 04/24/2025 Travel from Last [...] 01/29/2026 9:00 AM EDT Office Visit [facility] D[facility]M [address] [facility] [address] [place] [phone] Breanna Landaverde MD [address] [facility] [address] [place] [address] Health Maintenance Due Date Last [...] Result from Last 3 Months Insurance MEDICARE [facility]ANCE
--- OUTSIDE RECORDS SUMMARY | 2025-05-21 08:46 | XMS_ITS | Clinical Summary ---
Author Organization [facility] Address [address] [place] [address] Care Team Providers Care Hair Spring Winder Name Role Phone Katerina Mortensen MD Primary Care Provider [phone] Allergies No known active allergies Medications albuterol 90 mcg/actuation inhaler Inhale 2 [...] elevated myocardial infarction) (CMS/HCC),Coronary artery disease involving e[place]gik coronary artery of [place] heart without angina pectoris Take 1 tablet (81 mg) by mouth in the morning for 360 doses. 30 tablet 11 03/21/20 25 026 Active atorvastatin (Lipitor) 40 mg tabletIndications: NSTEMI (non-ST elevated myocardial infarction) (CMS/HCC),Coronary artery disease involving [place] coronary artery of [place] heart without angina pectoris Take 1 tablet (40 mg) by mouth at bedtime for 93 doses. 30 tablet 3 03/20/20 25 025 Active clopidogrel (Plavix) 75 mg tabletIndications: NSTEMI (non-ST elevated myocardial infarction) (CMS/HCC),Coronary artery disease involving e[place] coronary artery of [place] heart without angina pectoris Take 1 tablet (75 mg) by mouth in the morning for 360 doses. 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 30 tablet 3 03/21/20 25 025 Active Additional Information Patient not taking.Reported on 05/19/2025 metoprolol succinate XL (Toprol-XL) 100 mg 24 hr tabletIndications: Acute combined systolic and diastolic heart failure (CMS/HCC) Take 1 tablet (100 mg) by mouth in the morning for 93 doses. Do not crush or chew. 30 tablet 3 03/21/20 25 025 Active sacubitril-valsart an (Entresto) 24-26 mg tabletIndications: Acute combined systolic and diastolic heart failure (CMS/HCC) Take 1 tablet by mouth two times daily. 30 tablet 1 03/20/20 25 Active spironolactone (Aldactone) 25 mg tabletIndications: Acute combined systolic and diastolic heart failure (CMS/HCC) Take 1 tablet (25 mg) by mouth in the morning for 93 doses. 30 tablet 3 03/21/20 25 025 Active furosemide (Lasix) 20 mg tabletIndications: Acute combined systolic and diastolic heart failure (CMS/HCC) Take 1 tablet (20 mg) by mouth in the morning. 30 tablet 03/20/20 25 Active pantoprazole (ProtoNix) 20 mg EC tabletIndications: Coronary artery disease involving egegik coronary artery of e[place] heart without angina pectoris Take 1 tablet (20 mg) by mouth before breakfast. Do not crush, chew, or split. 90 tablet 3 05/19/20 25 026 Active Lactobacillus acidophilus (ACIDOPHILUS ORAL) Take by mouth. Active Active Problems Problem Noted Date Diagnosed Date Calcified lymph nodes 05/19/2025 Dysphagia, oropharyngeal phase 05/19/2025 Multiple pulmonary nodules 05/19/2025 Postnasal drip 05/19/2025 Viral pneumonia 03/15/2025 Assessment & Plan (03/19/2025 [...] aspirin lifelong Coronary artery disease invo lving egegik coronary artery of [place] heart without angina pectoris 03/15/2025 Assessment & [...] (03/15/2025 1:28 PM EDT): - see below Body mass index (BMI) 28.0-28.9, adult CRLD (chronic restrictive lung disease) 09/09/20 24 SOTO (dyspnea on exertion) 09/09/2024 History of severe acute resp iratory syndrome coronavirus 2 (SARS-CoV-2) disease 09/09/2024 Never smoked cigarettes 09/09/2024 Stage 3a chronic kidney disease 09/09/2024 Epiretinal membrane 10/04/2017 Exudative age-related macular degeneration 05/21 Actinic keratosis 11/03/2006 Benign neoplasm of scalp and skin of neck 2004 Benign neoplasm of skin of lower limb, including hip 04/04/2005 Inflamed seborrheic keratosis 04/04/2005 Encounters Date Type Department Care Team Description 05/19/2025 3:30 PM EDT Consult [facility] Pulmonary [address] [place] [address] Brandt Helton MD SOTO (dyspnea on exertion) (Primary Dx); Sarcoidosis; Chronic systolic heart failure (CMS/HCC); Coronary artery disease due to calcified coronary lesion 05/19/2025 10:30 AM EDT Office Visit [place] [address] [place] [address] Doug Stern MD Coronary artery disease involving egegik coronary artery of egegik heart without angina pectoris (Primary Dx); Heart failure with improved ejection fraction (HFimpEF) (CMS/HCC); Mixed hyperlipidemia 05/19/2025 Travel 05/14/2025 Telephone [facility] [address] [place] [address] Muna Osman MA 03/26/2025 2:40 PM EDT Office Visit [facility] [address] [place] [address] Abraham Shaffer CNP Coronary artery disease involving egegik coronary artery of e[place] heart without angina pectoris (Primary Dx); Chronic HFrEF (heart failure with reduced ejection fraction) (CMS/HCC); Cardiomyopathy, ischemic; Status post coronary angiogram; NSVT (nonsustained ventricular tachycardia) (CMS/HCC); Mixed hyperlipidemia 03/20/2025 Orders Only [facility] Heart at [facility] [address] [place] [address] Kristina Correa MD 03/20/2025 Telephone [facility] Surgery Clinic [address] [place] [address] Jessica Gustafson MA REFERRAL CONSULT 03/14/2025 5:57 PM EDT - 03/14/2025 7:57 PM EDT Surgery [facility] Vascular Lab [address] [place] [phone] Doug Stern MD Coronary angiography 03/12/2025 4:56 AM EDT - 03/20/2025 3:15 PM EDT Hospital Encounter [facility] [address] [place] [address] Kaylene Vaz MD Spencer, Caleb T, MD Chang, Cm Gillis MD Acute hypoxemic respiratory failure (CMS/HCC) (Primary Dx); Acute combined systolic and diastolic heart failure (CMS/HCC); Chronic HFrEF (heart failure with reduced ejection fraction) (CMS/HCC); NSTEMI (non-ST elevated myocardial infarction) (CMS/HCC); Weakness; Coronary artery disease involving egegik coronary artery of egeg[place] heart without angina pectoris; Viral pneumonia; Calculus of gallbladder without cholecystitis without obstruction; Sarcoidosis Discharge Disposition: Care Home Facility (03) 03/12/2025 Travel from Last 3 Months Family History Relation Name Status Comments Father Mother Social History Tobacco Use Types Packs/Day Years Used Date Smoking Tobacco: Never Passive Smoke Exposure: Never Smokeless Tobacco: Never Alcohol Use Standard Drinks/Week Comments Not Currently 0 (1 standard drink = 0.6 oz pur e alcohol) [facility] Utilities Answer Date Recorded In the past 12 months has e iconDial, gas, oil, or water deeplocal threatened to shut off services in your [...] any time in the past 12 m [facility], were you homeless or living in a custodial (including now)? Patient unable to answer 03/12/2025 [...] Pulse 62 05/19/2025 3:30 PM EDT Temperature 36.6 C (97.9 F) 03/20/2025 11:45 AM EDT Respiratory Rate 14 05/19/2025 3:30 PM EDT Oxygen Saturation 99% 05/19/2025 3:30 PM EDT ra at rest Inhaled Oxygen Concentration - - Weight 72.6 kg (160 lb) 05/19/2025 3:30 PM EDT Height 161.3 cm (5' 3.5 ) 05/19/2025 3:30 PM EDT Body Mass Index 27.9 05/19/2025 3:30 PM EDT Plan of Treatment Upcoming Encounters Date Type Department Care Team (Late st Contact Info) Description 05/27/2025 1:00 PM EDT Appointment [facility] Pulmonary Function Testing [address] [facility] 3rd [place] [address] 07/07/2025 2:10 PM EDT Appointment [facility] CT Imaging [address] [place] [phone] 08/05/2025 12:30 PM EDT Office Visit [facility] Pulmonary [address] [place] [phone] Brandt Helton MD [address] [place] [address] Health Maintenance Due Date Last Done Comments Medicare Annual Wellness (AWV) 1945 Adult Tetanus 1968 Zoster Vaccines (1 of 2) 1996 COVID-19 Vaccine ( season) 2024 10/25/2021, 03/25/2021, 03/01/2021 Influenza Vaccine (#1) 2025 10/08/2016 Depression Screening 05/19/2026 05/19/2025 Fall Risk Screening 05/19/2026 05/19/2025 Pneumococcal Vaccine: 50+ Years Completed 10/25/2019, 10/06/2016, [...] this topic Medical Devices Implanted Type Area Pool Hall Inspector Device Identifier Shelf Expiration Date Model / Serial / Lot Stent,Skip Mr 2.25 X 38 - [id number] Implanted:Qty : 1 on 03/14/2025 by Doug Stern MD at [facility] Drug Eluting Stent N/A: [employer] [id number] 01/16/2026 [id number] / / [id number] Stent,Synergy Mr 2.50 X 16 - [id number] Implanted:Qty : 1 on 03/14/2025 by Doug Stern MD at [facility] Drug Eluting Stent N/A: [employer] [id number] 11/27/2026 [id number] / / [id number] Stent,Synergy Xd Mr 2.5 X48mm - [id number] Implanted:Qty : 1 on 03/14/2025 by Doug Stern MD at [facility] Drug Eluting Stent N/A: [employer] [id number] 09/24/2026 [id number] / / [id number] Procedures Procedure Name Priority Date/Time Associated Diagnosis [...] - 10.60 10*3/uL 03/20/2025 8:58 AM EDT [facility] ([facility]) RBC 3.68(L) 3.80 - 5.00 10*6/uL 03/20/2025 8:58 AM EDT [facility] ([facility]) Hemoglobin 11.3(L) 12.0 - 15.0 g/dL 03/20/2025 8:58 AM EDT [facility] ([facility]) Hematocrit 34.5(L) 36.0 - 45.0 % 03/20/2025 8:58 AM EDT [facility] ([facility]) MCV 93.8 82.0 - 98.0 fL 03/20/2025 8:58 AM EDT [facility] ([facility]) MCH 30.7 27.0 - 33.0 pg 03/20/2025 8:58 AM EDT [facility] ([facility]) MCHC 32.8 32.0 - 35.0 g/dL 03/20/2025 8:58 AM EDT [facility] ([facility]) RDW 13.3 11.5 - 15.0 % 03/20/2025 8:58 AM EDT [facility] ([facility]) Neutrophils % 73.7(H) 40.0 - 72.0 % 03/20/2025 8:58 AM [facility] ([facility]) Lymphocytes % 11.2(L) 20.0 - 45.0 % 03/20/2025 8:58 AM T [facility] ([facility]) Monocytes % 10.4 5.0 - 12.0 % 03/20/2025 8:58 AM [facility] ([facility]) Eosinophils % 3.8 0.0 - 6.0 % 03/20/2025 8:58 AM [facility] ([facility]) Basophils % 0.0 0.0 - 1.0 % 03/20/2025 8:58 AM [facility] ([facility]) Neutrophils Absolute 4.67 1.60 - 7.60 10*3/uL 03/20/2025 8:58 AM [facility] ([facility]) Lymphocytes Absolute 0.71(L) 1.20 - 4.00 10*3/uL 03/20/2025 8:58 AM [facility] ([facility]) Monocytes Absolute 0.66 0.10 - 1.00 10*3/uL 03/20/2025 8:58 AM [facility] ([facility]) Eosinophils Absolute 0.24 0.00 - 0.50 10*3/uL 03/20/2025 8:58 AM [facility] ([facility]) Basophils Absolute 0.00 0.00 - 0.20 10*3/uL 03/20/2025 8:58 AM [facility] ([facility]) Platelets 221 150 - 400 10*3/uL 03/20/2025 8:58 AM [facility] ([facility]) nRBC % 0.0 0 % 03/20/2025 8:58 AM [facility] ([facility]) Immature Granulocytes % 0.9 0.0 - 1.0 % 03/20/2025 8:58 AM [facility] ([facility]) Immature Granulocytes Absolute 0.06 0.00 - 0.20 10*3/uL 03/20/2025 8:58 AM [facility] ([facility]) Blood Venous blood specimen / Unknown Venipuncture / Unknown 03/20/2025 8:15 AM EDT 03/20/2025 8:28 AM EDT [facility] BLOOD ORDERABLES Final Resu lt Performing Organization Address City/[facility]/ZIP Co de Phone Number [facility]) [address] [place] [address] * Magnesium (03/20/2025 8:15 AM EDT) Only the most recent of8 resultswithin the time period is included. Magnesium 2.0 1.9 - 2.7 mg/dL 03/20/2025 8:50 AM EDT [facility]) Blood Venous blood specimen / Unknown Venipuncture / Unknown 03/20/2025 8:15 AM EDT 03/20/2025 8:28 AM EDT [facility] LAB BLOOD ORDERABLES Final Resu lt Performing Organization Address [facility] Co de Phone Number [facility] ([facility]) [address] [place] [address] * (ABNORMAL) Basic metabolic panel (03/20/2025 8:15 AM EDT) Only the most recent of6 resultswithin the time period is included. Sodium 138 136 - 145 mmol/L 03/20/2025 8:50 AM EDT [facility]) Potassium 3.8 3.5 - 5.1 mmol/L 03/20/2025 8:50 AM EDT [facility] ([facility]) Chloride 106 98 - 107 mmol/L 03/20/2025 8:50 AM EDT [facility] ([facility]) CO2 29 21 - 31 mmol/L 03/20/2025 8:50 AM EDT [facility] ([facility]) BUN 19 7 - 25 mg/dL 03/20/2025 8:50 AM EDT [facility] ([facility]) Creatinine 0.90 0.60 - 1.20 mg/dL 03/20/2025 8:50 AM EDT [facility] ([facility]) Glucose 90 70 - 100 mg/dL 03/20/2025 8:50 AM EDT [facility] ([facility]) Calcium 8.5(L) 8.6 - 10.3 mg/dL 03/20/2025 8:50 AM EDT [facility] ([facility]) Anion Gap 7 7 - 20 mmol/L 03/20/2025 8:50 AM EDT [facility] ([facility]) eGFR 65.4 >60.0 mL/min/1. 73m*2 03/20/2025 8:50 AM EDT [facility] ([facility]) Comment:[facility] s estimated glomerular filtration rate (eGFR) will [...] BUN/Creatinine Ratio 21.1 02/28 8:50 AM EDT [facility] ([facility]) Blood Venous blood specimen / Unknown Venipuncture / Unknown 03/20/2025 8:15 AM EDT 03/20/2025 8:28 AM EDT us Juli Chapin [facility] LAB BLOOD ORDERABLES Final Resu lt [facility] ([facility]) [address] [place] [address] * (ABNORMAL) B-type natriuretic peptide (03/19/2025 5:20 AM EDT) Only the most recent of2 resultswithin the time period is included. BNP 230(H) 0 - 100 pg/mL 03/19/2025 6:10 AM EDT [facility] ([facility]) Blood Venous blood specimen / Unknown Venipuncture / Unknown 03/19/2025 5:20 AM EDT 03/19/2025 5:42 AM EDT us Abraham Shaffer [employer] LAB BLOOD ORDERABLES Final Resul t Performing Organization Address City/[facility]/ZIP Co de Phone Number [facility] ([facility]) [address] [place] [address] * (ABNORMAL) High Sensitivity Troponin I (03/16/2025 12:14 PM EDT) Only the most recent of7 resultswithin the time period is included. High Sensitivity Troponin I 2,801(HH) <15 ng/L 03/16/2025 1:20 PM EDT [facility] ([facility]) Blood Venous blood specimen / Unknown Venipuncture / Unknown 03/16/2025 12:14 PM EDT 03/16/2025 12:27 PM EDT us Ady Mclaughlin MD LAB BLOOD ORDERABLES Final Re sult Performing Organization Address [facility] Co de Phone Number [facility] ([facility]) [address] [place] [address] * XR chest 1 view (03/16/2025 10:06 AM EDT) Only the most recent of3 resultswithin the time period is included. Anatomical Region Laterality Modality Chest Computed Radiogr aphy 03/16/2025 10:3 3 AM EDT Impressions 03/16/2025 10:34 AM EDT Continued abnormal chest concerning for multifocal pneumonia. ARDS and/or pulmonary edema could have a similar appearance. Electronically signed: Mello Haynes. Narrative 03/16/2025 10:34 AM EDT XR CHEST [...] a similar appearance. Electronically signed: Mello Haynes. [facility] XR PROCEDURES Final Resul t * [...] medicine cisternogram. * Electronically signed: Mello Haynes. us Ady Mclaughlin MD IMG CT PROCEDURES Final Resul t * ECG 12 lead (03/16/2025 9:26 AM EDT) Only the most recent of4 resultswithin the time period is included. Ventricular Rate 92 BPM GE MUSE Atrial Rate 92 BPM GE MUSE CA Interval 154 ms GE MUSE QRS DURATION 88 ms GE MUSE QT Interval 364 ms GE MUSE QTC CALCULATION(BAZE TT) 450 ms GE MUSE P [place] 58 degrees GE MUSE R-[place] 56 degrees GE MUSE T Wave [place] 90 degrees GE MUSE 03/16/2025 9:10 AM [...] Doug Stern (71) on 03/16/2025 9:50:11 AM us Ady Mclaughlin MD ECG ORDERABLES Final Result GE MUSE * TSH3 Reflex to FT4 (03/15/2025 3:54 AM EDT) TSH 0.34 0.34 - 5.60 mIU/L 03/15/2025 2:03 PM EDT [facility] ([facility]) Blood Venous blood specimen / Unknown Venipuncture / Unknown 03/15/2025 3:54 AM EDT 03/15/2025 4:12 AM EDT Ady Mclaughlin MD LAB BLOOD ORDERABLES Final Re sult Performing Organization Address City/[facility]/ZIP Co de Phone Number [facility]) [facility] [place] [address] * (ABNORMAL) Anti-Xa (Heparin Level) (03/15/2025 3:54 AM EDT) Only the most recent of4 resultswithin the time period is included. Anti-Xa (Heparin) <0.10(LL) 0.3 - 0.7 IU/mL 03/15/2025 4:50 AM EDT [facility] ([facility]) Comment:Rivaroxaban and Apix aban will interfere with the anti Xa assay used to monitor UFH and LMWH. Blood Venous blood specimen / Unknown Venipuncture / Unknown 03/15/2025 3:54 AM EDT 03/15/2025 4:04 AM EDT Linda Davis MD LAB BLOOD ORDERABLES Final Result Performing Organization Address City/[facility]/ZIP Co de Phone Number [facility]) [place] [address] * T4, free (03/15/2025 3:54 AM EDT) Free T4 0.86 0.71 - 1.85 ng/dL 03/15/2025 2:39 PM EDT [facility] ([facility]) Blood Venous blood specimen / Unknown Venipuncture / Unknown 03/15/2025 3:54 AM EDT 03/15/2025 4:12 AM EDT Ady Mclaughlin MD LAB BLOOD ORDERABLES Final Re sult [facility] ([facility]) [place] [address] * Phosphorus (03/15/2025 3:54 AM EDT) Only the most recent of5 resultswithin the time period is included. Phosphorus 3.1 2.5 - 5.0 mg/dL 03/15/2025 4:39 AM EDT [facility] ([facility]) Blood Venous blood specimen / Unknown Venipuncture / Unknown 03/15/2025 3:54 AM EDT 03/15/2025 4:12 AM EDT us Kaylene Vaz MD LAB BLOOD ORDERABLES Final Res ult [facility] ([facility]) [address] [place] [address] * (ABNORMAL) Comprehensive metabolic panel (03/15/2025 3:54 AM EDT) Only the most recent of4 resultswithin the time period is included. Sodium 143 136 - 145 mmol/L 03/15/2025 4:39 AM EDT [facility] ([facility]) Potassium 3.8 3.5 - 5.1 mmol/L 03/15/2025 4:39 AM EDT [facility] ([facility]) Chloride 106 98 - 107 mmol/L 03/15/2025 4:39 AM EDT [facility] ([facility]) CO2 30 21 - 31 mmol/L 03/15/2025 4:39 AM EDT [facility] ([facility]) Anion Gap 11 7 - 20 mmol/L 03/15/2025 4:39 AM EDT [facility] ([facility]) BUN 34(H) 7 - 25 mg/dL 03/15/2025 4:39 AM EDT [facility] ([facility]) Creatinine 0.88 0.60 - 1.20 mg/dL 03/15/2025 4:39 AM EDT [facility] ([facility]) BUN/Creatinine Ratio 38.6 02/27 4:39 AM EDT [facility] ([facility]) Glucose 127(H) 70 - 100 mg/dL 03/15/2025 4:39 AM EDT [facility] ([facility]) Calcium 8.9 8.6 - 10.3 mg/dL 03/15/2025 4:39 AM EDT [facility] ([facility]) AST 25 13 - 39 U/L 03/15/2025 4:39 AM EDT [facility] ([facility]) ALT (SGPT) 13 7 - 52 U/L 03/15/2025 4:39 AM EDT [facility] ([facility]) Alkaline Phosphatase 37 34 - 104 U/L 03/15/2025 4:39 AM EDT [facility] ([facility]) Total Protein 5.7(L) 6.0 - 8.3 g/dL 03/15/2025 4:39 AM EDT [facility] ([facility]) Albumin 3.6 3.5 - 5.7 g/dL 03/15/2025 4:39 AM EDT [facility] ([facility]) Total Bilirubin 0.7 0.3 - 1.0 mg/dL 03/15/2025 4:39 AM EDT [facility] ([facility]) eGFR 67.2 >60.0 mL/min/1. 73m*2 03/15/2025 4:39 AM EDT [facility] ([facility]) Comment:[facility] s estimated glomerular filtration rate (eGFR) will [...] AM EDT 03/15/2025 4:12 AM EDT us Kaylene Vaz MD LAB BLOOD ORDERABLES Final Res ult [facility] ([facility]) [address] [place] [address] * Lactic acid with 4 hour reflex (03/14/2025 8:54 PM EDT) Only the most recent of15 resultswithin the time period is included. Lactate 1.9 0.5 - 2.2 mmol/L 03/14/2025 10:02 PM EDT [facility] ([facility]) Blood Venous blood specimen / Unknown Venipuncture / Unknown 03/14/2025 8:54 PM EDT 03/14/2025 9:13 PM EDT us Kaylene Vaz MD LAB BLOOD ORDERABLES Final Res ult [facility] ([facility]) [address] [place] [address] * CORONARY ANGIOGRAPHY, RIGHT HEART CATH, PERC [...] informed consent. 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 The right neck area was prepped and draped in usual fashion. Micropuncture technique was used for access under ultrasound guidance into the right internal jugular vein. A 6-Greek x 11 cm sheath was placed. A 6-Greek Chavez catheter was used for right heart catheterization and measurement of pressures and calculation of cardiac output using the estimated Miki method. Chavez catheter was removed. The left wrist area was prepped and draped in usual fashion. Micropuncture technique was used for access in the left radial artery. A 6-Greek x 11 cm sheath was placed. Verapamil was given through the sheath, and heparin was administered intravenously. Initial advancement of the wire proved difficult in the proximal radial artery. Therefore radial angiography was performed showing significant tortuosity's in the radial artery. This was crossed using a coronary Prowater wire and a 5 Greek straight tapered glide catheter was advanced to the brachial artery. This allows advancement of a Daniel wire to the ascending aorta and therefore advancement of diagnostic catheters. Bilateral selective coronary angiography was then performed using 6-Greek JL4 and JR4 diagnostic catheters. Catheters were removed. Heparin was administered intravenously and therapeutic ACT was confirmed during the rest of the procedure. A 6-Greek XB 3.0 guiding catheter was advanced and [...] guiding catheter and wire were removed. A 6-Greek IM guiding catheter was advanced and used [...] Study Details NSTEMI (non-ST elevated myocardial infarction) (CMS/HCC) [I21.4], Acute systolic heart failure (CMS/HCC) [I50.21], Acute hypoxemic respiratory failure (CMS/HCC) [J96.01] Linda Davis MD CV CARDIAC CATH PROCEDURES Final Result * (ABNORMAL) POC Activated Clotting Time (03/14/2025 5:02 PM EDT) Only the most recent of4 resultswithin the time period is included. 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 us Ady Mclaughlin MD POINT OF CARE TEST ENTER/EDIT ORDERABLES Final Result * (ABNORMAL) Lipid panel (03/14/2025 4:26 AM EDT) [facility] Triglycerides 153(H) <150 mg/dL 03/14/2025 9:53 AM EDT [facility] ([facility]) Comment: TRIGLYCERIDE REFERENCE RANGE: 20 YEARS AND OLDER CARDIOVASCULAR RISK LESS THAN 150 mg/dL LOW RISK 150 TO 199 mg/dL BORDERLINE RISK 200 mg/dL AND GREATER HIGH RISK Cholesterol 173 120 - 200 mg/dL 03/14/2025 9:53 AM EDT [facility] ([facility]) LDL Calculated 100 0 - 160 mg/dL 03/14/2025 9:53 AM EDT [facility] ([facility]) HDL 42 23 - 92 mg/dL 03/14/2025 9:53 AM EDT [facility] ([facility]) Non HDL Cholesterol 131 03/14/2025 9:53 AM EDT [facility] ([facility]) Total VLDL-C 31 0 - 40 mg/dL 03/14/2025 9:53 AM EDT [facility] ([facility]) Cholesterol/HDL Ratio 4.1 mg/dL 03/14/2025 9:53 AM EDT [facility] ([facility]) Blood Venous blood specimen / Unknown Arterial Line / Unknown 03/14/2025 4:26 AM EDT 03/14/2025 4:51 AM EDT us Linda Davis MD LAB BLOOD ORDERABLES Final Result [facility] ([facility]) [address] [place] [address] * (ABNORMAL) aPTT - baseline (03/13/2025 9:43 PM EDT) aPTT 126.5(H) 25.0 - 35.0 Seconds 03/13/2025 10:57 PM EDT [facility] ([facility] Comment:Clinical significanc e of the APTT is questionable in the presence of heparin. Blood Venous blood specimen / Unknown Arterial Line / Unknown 03/13/2025 9:43 PM EDT 03/13/2025 10:12 PM EDT us Linda Davis MD LAB BLOOD ORDERABLES Final Result [facility] ([facility]) [address] [place] [address] * LIMITED ECHO (TTE) W/ STRAIN (03/13/2025 1:18 PM EDT) Anatomical Region Laterality Modality Other 03/13/2025 12:4 0 PM EDT Narrative 03/13/2025 2:21 PM EDT 1 1 [facility] Heart Station [address] [place] [address] [phone] (fax) Echocardiogram-[facility] Name: PILO UGARTE Study Date: 03/13/2025 12:40 PM B/P: 115 mmHg/57 mmHg HR: Date of : 1945 Location: [facility] Height: 65 in. Age: 79 year(s) Patient [...] minimal pericardial effusion. Procedure Staff Reading Group: [facility] Supervisor Filling And Packing: Cathryn Carey RDCS Ordering Physician: LINDA DAVIS Procedure Note Tom Salinas MD - 03/13/2025 1 1 [facility] Heart Station [address] [place] [address] [phone] (fax) Echocardiogram-[facility] Name: PILO UGARTE Study Date: 03/13/2025 12:40 PM B/P: 115 mmHg/57 mmHg HR: Date of : 1945 Location: [facility] Height: 65 in. Age: 79 year(s) Patient [...] minimal pericardial effusion. Procedure Staff Reading Group: [facility] Supervisor Filling And Packing: Cathryn Carey RDCS Ordering Physician: LINDA DAVIS Linda Davis MD CV ECHO PROCEDURES Final R esult * Lavender Top (03/13/2025 8:05 AM EDT) Extra Tube Hold for add-ons. 03/13/2025 10:01 AM EDT [facility] ([facility]) Comment:Auto resulted. Blood Venous blood specimen / Unknown 03/13/2025 8:05 AM EDT 03/13/2025 8:09 AM EDT Kaylene Vaz MD LAB BLOOD ORDERABLES Final Res ult [facility]) [address] [place] [address] * Light Green Top (03/13/2025 8:05 AM EDT) Extra Tube Hold for add-ons. 03/13/2025 10:01 AM EDT [facility] ([facility]) Comment:Auto resulted. Blood Venous blood specimen / Unknown 03/13/2025 8:05 AM EDT 03/13/2025 8:09 AM EDT us Kaylene Vaz MD LAB BLOOD ORDERABLES Final Res ult [facility]) [address] [place] [address] * (ABNORMAL) POCT glucose meter (03/13/2025 6:12 AM EDT) Only the most recent of4 resultswithin the time period is included. Glucose POC 147(H) 70 - 105 mg/dL 03/13/2025 6:23 AM EDT [facility] ([facility]) Comment:[email or web address] Blood Capillary blood specimen / Unknown 03/13/2025 6:12 AM EDT 03/13/2025 6:23 AM EDT Narrative [facility] ([facility]) - 03/13/2025 6:23 AM EDT Waived Testing in the ED is performed under the ED CLIA certificate #[id number]. us Kaylene Vaz MD LAB BLOOD ORDERABLES Final Res ult [facility]) [address] [place] [address] * (ABNORMAL) Arterial blood gas with ionized calcium (03/13/2025 4:53 AM EDT) Only the most recent of2 resultswithin the time period is included. pH, Arterial 7.40 7.35 - 7.45 pH 03/13/2025 4:54 AM EDT [facility] pCO2, Arterial 38 35 - 48 mmHg 03/13/2025 4:54 AM EDT [facility] pO2, Arterial 107(H) 83 - 100 mmHg 03/13/2025 4:54 AM EDT [facility] HCO3, Arterial 23.5 21.0 - 28.0 mEq/L 03/13/2025 4:54 AM EDT [facility] Calcium, Ion 1.27 1.15 - 1.33 mmol/L 03/13/2025 4:54 AM EDT [facility] RES[facility]ER[facility] O2 Sat, Arterial 99.2(H) 94.0 - 98.0 % 03/13/2025 4:54 AM EDT [facility] RES[facility]ERAP[facility] Base Excess, Arterial -1.1 -2.0 - 3.0 mmol/L 03/13/2025 4:54 AM EDT [facility] Source Of Oxygen AC/VC 03/13/20 4:54 AM EDT [facility]ERAP[facility] FiO2 40 % 03/13/2025 4:54 AM EDT [facility] RESPIRATORY THERAPY PEEP 8 cmH2O 03/13/2025 4:54 AM EDT [facility] Respiratory Rate 14 03/13/20 4:54 AM EDT [facility] RES[facility]ERAP[facility] Tidal Volume 450 03/13/2025 4:54 AM EDT [facility] RES[facility]ATORY THERAP[facility] Total Minute Volume 9.4 03/13/2025 4:54 AM EDT [facility] RES[facility]AT[facility]ERAPY Blood Arterial blood specimen / Unknown Arterial Puncture / Unknown 03/13/2025 4:53 AM EDT 03/13/2025 4:53 AM EDT Kaylene Vaz MD LAB BLOOD ORDERABLES Final Res ult Performing Organization Address City/[facility]/ZIP Co de Phone Number [facility] RESPIRATORY THERAPY [address] [place] [address], * Immunoglobulin E (03/12/2025 8:11 PM EDT) Immunoglobulin E <1 0 - 100 IU/mL 03/13/2025 1:36 PM EDT [facility] Comment:Test Performed by [facility] [place] [address] - [email or web address] 03/13/2025 13:36 Blood Venous blood specimen / Unknown Arterial Line / Unknown 03/12/2025 8:11 PM EDT 03/12/2025 9:11 PM EDT Kaylene Vaz MD LAB BLOOD ORDERABLES Final Res ult [facility] [address] [place] [address] * Hypersensitivity pneumonitis panel 2 (03/12/2025 8:11 PM EDT) A. flavus Ab, Precipitin None Detected None Detected 03/19/2025 11:09 AM EDT [facility] ([facility]) Aspergillus fumigatus #2 IgE None Detected None Detected 03/19/2025 11:09 AM EDT [facility] ([facility]) Aspergillus fumigatus #3 IgE None Detected None Detected 03/19/2025 11:09 AM EDT [facility] ([facility]) S Viridis Ab, Precipitin None Detected None Detected 03/19/2025 11:09 AM EDT [facility] ([facility]) T. candidus Ab, Precipitin None Detected None Detected 03/19/2025 11:09 AM EDT [facility] ([facility]) Comment: Testing includes antibodies directed at Aspergillus flavus, Aspergillus fumigatus #2, Aspergillus fumigatus #3, Saccharomonospora viridis, and Thermoactinomyces candidus. Performed By: [place] [address] Qa Consultant: Ryley Cardenas MD, PhD CLIA Number: [id number] Blood Venous blood specimen / Unknown Arterial Line / Unknown 03/12/2025 8:11 PM EDT 03/12/2025 9:11 PM EDT us Kaylene Vaz MD LAB BLOOD ORDERABLES Final Res ult [facility] ([facility]) [address] [place] [address] * Hypersensitivity pnuemonitis panel 1 (03/12/2025 8:11 PM EDT) A. fumigatus #1 Ab, Precipitin None Detected None Detected 03/19/2025 11:09 AM EDT [facility] ([facility]) A. fumigatus #6 Ab, Precipitin None Detected None Detected 03/19/2025 11:09 AM EDT [facility] ([facility]) A. pullulans Ab, Precipitin None Detected None Detected 03/19/2025 11:09 AM EDT [facility] ([facility]) Calvin Serum Ab, Precipitin None Detected None Detected 03/19/2025 11:09 AM EDT [facility] ([facility]) M Faeni Ab, Precipitin None Detected None Detected 03/19/2025 11:09 AM EDT [facility] ([facility]) Comment: Testing includes antibodies directed at Aureobasidium pullulans, Aspergillus fumigatus #1, Aspergillus fumigatus #6, Micropolyspora faeni, and Calvin Serum. Performed By: [facility] [address] [place] [address] Qa Consultant: Ryley Cardenas MD, PhD CLIA Number: [id number] Blood Venous blood specimen / Unknown Arterial Line / Unknown 03/12/2025 8:11 PM EDT 03/12/2025 9:11 PM EDT us Kaylene Vaz MD LAB BLOOD ORDERABLES Final Res ult [facility] ([facility] [address] [place] [address] * Pathology Review (03/12/2025 6:34 PM EDT) Pathology Review Reviewed. Electronica lly signed by Deshawn Toure MD on 03/13/25 at 7:34 AM. 03/13/2025 7:34 AM EDT [facility] ([facility]) Fluid (Bronchoalveolar lavage, right middle lobe) Non-blood Collection / Unknown 03/12/2025 6:34 PM EDT 03/12/2025 6:34 PM EDT us Kaylene Vaz MD LAB BLOOD ORDERABLES Final Res ult [facility] ([facility]) [address] [place] [address] * Body fluid cell differential (03/12/2025 6:34 PM EDT) Total Cells Counted for Differential 100 03/13/2025 7:34 AM EDT [facility] ([facility]) Neutrophils Manual, Fluid 90 03/13/2025 7:34 AM EDT [facility] ([facility]) Lymphocytes Manual, Fluid 1 03/13/2025 7:34 AM EDT [facility] ([facility]) Simpson/Macrophage Manual, Fluid 9 03/13/2025 7:34 AM EDT [facility] ([facility]) Eosinophils Manual, Fluid 03/13/2025 7:34 AM EDT [facility] ([facility]) Basophils Manual, Fluid 03/13/2025 7:34 AM EDT [facility] ([facility]) Mesothelial Manual, Fluid 03/13/2025 7:34 AM EDT [facility] ([facility]) Other Cells, BF Manual 03/13/2025 7:34 AM EDT [facility] ([facility]) Fluid (Bronchoalveolar lavage, right middle lobe) Non-blood Collection / Unknown 03/12/2025 6:34 PM EDT 03/12/2025 6:34 PM EDT Narrative [facility] ([facility]) - 03/13/2025 7:34 AM EDT Differential performed on cytospin us Kaylene Vaz MD LAB BODY FLUIDS AND STOOLS ORD ERABLES Final Result [facility] ([facility]) [address] [place] [address] * (ABNORMAL) Body fluid cell count with differential (03/12/2025 6:34 PM EDT) Fluid Type Cell Count Bronchial Fluid 03/12/2025 8:30 PM EDT [facility] ([facility]) Fluid Volume 30 mL 03/12/2025 8:30 PM EDT [facility] ([facility]) RBC, Fluid 6,828(H) 0 - 1,000 RBC/uL 03/12/2025 8:30 PM EDT [facility] ([facility]) Total Number of Nucleated Cells 1,038 TNC/uL 03/12/2025 8:30 PM EDT [facility] ([facility]) Fluid (Bronchoalveolar lavage, right middle lobe) Non-blood Collection / Unknown 03/12/2025 6:34 PM EDT 03/12/2025 6:34 PM EDT Narrative [facility] ([facility]) - 03/12/2025 8:30 PM EDT Reference Ranges for Total Number of Nucleated Cells: Cerebrospinal Fluid 0-5 TNC/uL Pleural Fluid 0-1,000 TNC/uL Peritoneal Fluid 0-100 TNC/uL Pericardial Fluid 0-1,000 TNC/uL Synovial Fluid 0-200 TNC/uL Reference Ranges for Erythrocytes in Body Fluid: Pleural Fluid 0-100,000 RBC/uL Peritoneal Fluid 0-50,000 RBC/uL Unspecified Fluid 0-1,000 RBC/uL Kaylene Vaz MD LAB BODY FLUIDS AND STOOLS ORD ERABLES Final Result Performing Organization Address City/[facility]/ZIP Co de Phone Number [facility] ([facility]) [address] [place] [address] * Respiratory culture (03/12/2025 6:34 PM EDT) Culture No growth at 5 days VANIA 03/17/2025 8:29 AM EDT [facility] ([facility]) Gram Stain Result Many Polymorphonuclear leukocytes 03/17/2025 8:29 AM EDT [facility] ([facility]) Gram Stain Result No organisms seen 03/17/2025 8:29 AM EDT [facility] ([facility]) Lavage (Bronchoalveolar lavage, right middle lobe) Non-blood Collection / Unknown 03/12/2025 6:34 PM EDT 03/12/2025 6:34 PM EDT Kaylene Vaz MD LAB MICROBIOLOGY - GENERAL ORD ERABLES Final Result Performing Organization Address [facility] Co de Phone Number [facility] ([facility]) [address] [place] [address] * CT chest w IV contrast (03/12/2025 5:12 PM EDT) Anatomical Region Laterality Modality Body, Chest Computed Tomogra phy Historical Provider IMG CT PROCEDURES Final R esult * COMPLETE ECHO (TTE) W/ IMAGING AGENT (03/12/2025 11:24 AM EDT) Anatomical Region Laterality Modality Other 03/12/2025 10:4 1 AM EDT Narrative 03/12/2025 1:34 PM EDT 1 1 [facility] Heart Station [address] [place] [address] [phone] (fax) Echocardiogram-[facility] Name: PILO UGARTE Study Date: 03/12/2025 10:41 AM B/P: 99 mmHg/59 mmHg HR: 80 bpm Date of : 1945 Location: [facility] Height: 65 in. Age: 79 year(s) Patient [...] minimal pericardial effusion. Procedure Staff Reading Group: [facility] Referring Physician: CRIS CARSON Supervisor Filling And Packing: CHELSIE Hall Ordering Physician: KAYLENE VAZ Wall Motion Scores -1 - hyperkinesia, 0 - not evaluated, 1 - normal, 2 - hypokinesia, 3 - akinesia, 4 - dyskinesia Procedure Note Martina Montilla MD - 03/12/2025 1 1 [facility] Heart Station [address] [facility] [place] [address] [phone] (fax) Echocardiogram-[facility] Name: PILO UGARTE Study Date: 03/12/2025 10:41 AM B/P: 99 mmHg/59 mmHg HR: 80 bpm Date of : 1945 Location: [facility] Height: 65 in. Age: 79 year(s) Patient [...] minimal pericardial effusion. Procedure Staff Reading Group: [facility] Referring Physician: CRIS CARSON Supervisor Filling And Packing: Carla Curry [facility] Ordering Physician: KAYLENE VAZ Wall Motion Scores [...] chest without contrast. All CT scans at [facility] use dose modulation, iterative reconstruction, and/or weight [...] Detected Not Detected 03/12/2025 1:11 PM EDT [facility] ([facility]) Bordetella pertussis Not Detected Not Detected 03/12/2025 1:11 PM EDT [facility] ([facility]) Bordetella parapertussis Not Detected Not Detected 03/12/2025 1:11 PM EDT [facility] ([facility]) Chlamydia pneumoniae Not Detected Not Detected 03/12/2025 1:11 PM EDT [facility] ([facility]) Coronavirus 229E Not Detected Not Detected 03/12/2025 1:11 PM EDT [facility] ([facility]) Coronavirus HKU1 Not Detected Not Detected 03/12/2025 1:11 PM EDT [facility] ([email or web address]) Coronavirus NL63 Not Detected Not Detected 03/12/2025 1:11 PM EDT [facility] ([email or web address]) Coronavirus OC43 Not Detected Not Detected 03/12/2025 1:11 PM EDT [facility] ([email or web address]) Human Metapneumovirus Detected(A) Not Detected 03/12/2025 1:11 PM EDT [facility] ([facility]) Human Rhinovirus + Enterovirus Not Detected Not Detected 03/12/2025 1:11 PM EDT [facility] ([facility]) Influenza A Not Detected Not Detected 03/12/2025 1:11 PM EDT [facility] ([facility]) Influenza B Not Detected Not Detected 03/12/2025 1:11 PM EDT [facility] ([facility]) Mycoplasma pneumoniae Not Detected Not Detected 03/12/2025 1:11 PM EDT [facility] ([facility]) Parainfluenza 1 Not Detected Not Detected 03/12/2025 1:11 PM EDT [facility] ([facility]) Parainfluenza 2 Not Detected Not Detected 03/12/2025 1:11 PM EDT [facility] ([facility]) Parainfluenza 3 Not Detected Not Detected 03/12/2025 1:11 PM EDT [facility] ([facility]) Parainfluenza 4 Not Detected Not Detected 03/12/2025 1:11 PM EDT [facility] ([facility]) Respiratory Syncytial Virus Not Detected Not Detected 03/12/2025 1:11 PM EDT [facility] ([facility]) SARS-CoV-2 Not Detected Not Detected 03/12/2025 1:11 PM EDT [facility] ([facility]) Swab Nasopharyngeal structure / Unknown Non-blood Collection / Unknown 03/12/2025 9:49 AM EDT 03/12/2025 10:27 AM EDT Narrative [facility] ([facility]) - 03/12/2025 1:11 PM EDT Testing methodology is a multiplexed nucleic acid test intended for the simultaneous qualitative detection and differentiation of nucleic acids from multiple viral and bacterial respiratory organisms in nasopharyngeal swabs (ANIMAL GROOMER). us Kaylene Vaz MD LAB MICROBIOLOGY - GENERAL ORD ERABLES Final Result [facility] ([facility]) [address] [place] [address] * Blood culture, peripheral #2 (03/12/2025 8:20 AM EDT) Only the most recent of2 resultswithin the time period is included. Blood Culture No growth at 5 days VANIA 03/17/2025 9:01 AM EDT [facility] ([facility]) Blood Venous blood specimen / Unknown Venipuncture / Unknown 03/12/2025 8:20 AM EDT 03/12/2025 8:43 AM EDT Kaylene Vaz MD LAB MICROBIOLOGY - GENERAL ORD ERABLES Final Result [facility]) [address] [place] [address] * SARS-CoV-2 PCR (03/12/2025 7:49 AM EDT) SARS-CoV-2 PCR Negative Negative 03/12/2025 8:40 AM EDT [facility]) Swab Nasal structure / Unknown Non-blood Collection / Unknown 03/12/2025 7:49 AM EDT 03/12/2025 7:51 AM EDT Narrative [facility]) - 03/12/2025 8:40 AM EDT Testing methodology utilizes isothermal nucleic acid amplification technology for the differential and qualitative detection of SARS-CoV-2 viral nucleic acids. Kaylene Vaz MD LAB MICROBIOLOGY - GENERAL ORD ERABLES Final Result Performing Organization Address City/[facility]/ZIP Co de Phone Number [facility]) [address] [place] [phone] * MRSA/MSSA DNA Nasal (03/12/2025 6:34 AM EDT) MSSA DNA Negative Negative 03/12/2025 3:22 PM EDT [facility]) MRSA DNA Negative Negative 03/12/2025 3:22 PM EDT [facility] ([facility]) Swab Nasal structure / Unknown Non-blood Collection / Unknown 03/12/2025 6:34 AM EDT 03/12/2025 6:44 AM EDT Narrative [facility] ([facility]) - 03/12/2025 3:22 PM EDT Testing methodology [...] negative result does not preclude nasal colonization. us Kaylene Vaz MD LAB MICROBIOLOGY - GENERAL ORD ERABLES Final Result Performing Organization Address City/[facility]/ZIP Co de Phone Number [facility]) [address] [place] [address] * Rapid influenza A/B PCR (03/12/2025 6:34 AM EDT) Rapid Influenza A PCR Negative Negative 03/12/2025 7:11 AM EDT [facility] ([facility]) Rapid Influenza B PCR Negative Negative 03/12/2025 7:11 AM EDT [facility]) Swab Nasal structure / Unknown Non-blood Collection / Unknown 03/12/2025 6:34 AM EDT 03/12/2025 6:43 AM EDT Narrative [facility] ([facility]) - 03/12/2025 7:11 AM EDT Testing methodology utilizes isothermal nucleic acid amplification technology for the differential and qualitative detection of Influenza A and Influenza B viral nucleic acids. us Kaylene Vaz MD LAB MICROBIOLOGY - GENERAL ORD ERABLES Final Result Performing Organization Address City/[facility]/ZIP Co de Phone Number [facility]) [address] [place] [phone] * (ABNORMAL) Urinalysis with microscopic (03/12/2025 6:30 AM EDT) Color, Urine Yellow Colorless, Yellow, Light-Yellow 03/12/2025 3:26 PM EDT [facility] ([facility]) Clarity, Urine Clear Clear 03/12/2025 3:26 PM [facility] ([facility]) Specific [place], Urine >1.050(H) 1.010 - 1.030 03/12/2025 3:26 PM [facility] ([facility]) pH, Urine 5.5 5.0 - 8.0 pH 03/12/2025 3:26 PM [facility] ([facility]) Leukocytes, Urine Negative Negative 03/12/2025 3:26 PM [facility] ([facility]) Nitrite, Urine Negative Negative 03/12/2025 3:26 PM [facility] ([facility]) Protein, Urine Negative Negative mg/dL 03/12/2025 3:26 PM [facility] ([facility]) Glucose, Urine Normal Normal mg/dL 03/12/2025 3:26 PM [facility] ([facility]) Bilirubin, Urine Negative Negative 03/12/2025 3:26 PM [facility] [employer]) Ketones, Urine Negative Negative mg/dL 03/12/2025 3:26 PM [facility] ([facility]) Urobilinogen, Urine Normal Normal mg/dL 03/12/2025 3:26 PM [facility] ([facility]) Blood, Urine Moderate(A) Negative 03/12/2025 3:26 PM [facility] ([facility]) RBC, Urine 11-20(A) None Seen, 0-2 /HPF 03/12/2025 3:26 PM [facility] ([facility]) WBC, Urine 3-5(A) None Seen, 0-2 /HPF 03/12/2025 3:26 PM [facility] ([facility]) Squamous Epithelial, Urine Occasional None Seen, Occasional, Few /LPF 03/12/2025 3:26 PM [facility] ([facility]) Mucus, Urine Occasional None Seen, Occasional, Few /LPF 03/12/2025 3:26 PM [facility] ([facility]) Urine Urine specimen obtained by clean catch procedure / Unknown Non-blood Collection / Unknown 03/12/2025 6:30 AM EDT 03/12/2025 6:44 AM EDT Kaylene Vaz MD LAB URINE ORDERABLES Final Res ult Performing Organization Address City/[facility]/ZIP Co de Phone Number [facility] ([facility]) [address] [place] [address] * Strep pneumoniae antigen, urine (03/12/2025 6:30 AM EDT) Streptococcus pneumoniae Ag Negative Negative 03/13/2025 7:57 AM EDT [facility] ([facility]) Urine Urine specimen obtained by clean catch procedure / Unknown Non-blood Collection / Unknown 03/12/2025 6:30 AM EDT 03/12/2025 6:44 AM EDT Kaylene Vaz MD LAB URINE ORDERABLES Final Res ult Performing Organization Address [facility] Co de Phone Number [facility]) [address] [place] [address] * Legionella antigen, urine (03/12/2025 6:30 AM EDT) Legionella Antigen, Urine NEGATIVE NEG 03/12/2025 3:36 PM EDT [facility] Comment: L. pneumophila serogroup 1 antigen not detected. A negative result does not exclude infection with Leginella pnemophila serogroup 1 nor does it rule out other microbial-caused respiratory infections of disease caused by other serogroups of Legionella pneumophila. Test Performed by [facility] [place] [address] - [place] 03/12/2025 15:36 Urine Urine specimen obtained by clean catch procedure / Unknown Non-blood Collection / Unknown 03/12/2025 6:30 AM EDT 03/12/2025 9:10 AM EDT Kaylene Vaz MD LAB URINE ORDERABLES Final Res ult Performing Organization Address City/[facility]/ZIP Co de Phone Number [facility] [address] [place] [address] * (ABNORMAL) Procalcitonin Test (03/12/2025 6:12 AM EDT) Procalcitonin 15.02(HH) 0.00 - 0.10 ng/mL 03/12/2025 8:33 AM EDT [facility] ([facility]) Comment:Monitor triglyceride s while patient is on propofol Blood Venous blood specimen / Unknown Arterial Line / Unknown 03/12/2025 6:12 AM EDT 03/12/2025 6:32 AM EDT Kaylene Vaz MD LAB BLOOD ORDERABLES Final Res ult Performing Organization Address City/[facility]/ZIP Co de Phone Number [facility] ([facility]) [address] [place] [address] * Triglycerides every Monday while patient is on Propofol (03/12/2025 6:12 AM EDT) Triglycerides 95 <150 mg/dL 03/12/2025 7:01 AM EDT [facility] ([facility]) Comment: TRIGLYCERIDE REFERENCE RANGE: 20 YEARS AND OLDER CARDIOVASCULAR RISK LESS THAN 150 mg/dL LOW RISK 150 TO 199 mg/dL BORDERLINE RISK 200 mg/dL AND GREATER HIGH RISK Fasting? Unknown 03/12/2025 7:01 AM EDT [facility] ([facility]) Blood Venous blood specimen / Unknown Arterial Line / Unknown 03/12/2025 6:12 AM EDT 03/12/2025 6:32 AM EDT Kaylene Vaz MD LAB BLOOD ORDERABLES Final Res ult [facility] ([facility]) [address] [place] [address] * XR chest 2 views (03/11/2025 5:12 PM EDT) Anatomical Region Laterality Modality Chest Computed Radiogr aphy Historical Provider IMG XR PROCEDURES Final R esult from Last 3 Months Insurance MEDICARE GENERIC OTHER Advance Directives * Full Code (Latest Code Status on File) Date Activated Date Inactivated Comments 03/12/2025 5:29 AM 03/20/2025 5:16 PM Care Teams Hair Spring Winder Relationship Specialty Start Date End Date Katerina Mortensen MD [address] [place] [address] PCP - General 03/19/25
--- OUTSIDE RECORDS SUMMARY | 2025-05-21 08:46 | XMS_ITS | Patient Health Record ---
Author Organization [facility] Address [address] [place] [address] Care Team Providers Care Truck Striker Name Role Phone Katerina Mortensen Primary Care Provider Dayanna Arciniega [phone] Allergies Allergen (clinical drug ingredient) Drug/Non Drug Allergy documented on EMR Reaction Allergy Type Onset Date Status Iodine rash Drug Allergy Active Results Component Value Reference Range Notes CT Chest w/contrast * Reviewed date:07/08/2024 07:05:02 AM Interpretation: Performing Lab: Notes/Report: ITP Reviewed date:04/23/2025 07:47:51 AM Interpretation: Performing Lab: Notes/Report: Source Facility: [place] [address] [place] [address] Cardiac Rehab Report Signed Patient: PILO CABAN MR#: [id number] : 1945 Acct:[id number] Age/Sex: 79 / F ADM Date: 04/23/25 Loc: CR Attending Dr: ALFRED LOWERY Ordering Physician: Dayanna Lobo D.O. Date of Service: 04/21/25 Procedure(s): ITP Accession Number(s): [id number] cc: [facility] Test Date: 2025-04-21 Pat Name: PILO CABAN Department: Room: - Gender: Female Chief Physical Therapist: : 1945 Requested By: Dayanna Lobo Order Number: [id number] Ivan SHARMA: Dayanna Lobo Interpretive Statements Okay to proceed with outlined treatment plan. Electronically Signed On 04-23-2025 7:12:21 EDT by Dayanna Lobo Dictated By: Dayanna Lobo D.O. Signed By: 04/23/25 0712 04/23/25 0712 DD/ 1411 TD/TT: Patient Biller: [place] [address] Cardiac Rehab Report Signed Patient: CECE CABAN CIA MR#: [id number] : 1945 Acct:[id number] Age/Sex: 79 / F ADM Date: 04/23/25 Loc: CR Attending Dr: ALFRED LOWERY Ordering Physician: Dayanna Lobo D.O. Date of Service: 04/21/25 Procedure(s): BESS Accession Number(s): [id number] cc: [facility] Test Date: 2025-04-21 Pat Name: PILO DENNISON Department: 91 Room: - Gender: Female Chief Physical Therapist: : 1945 Requ ested By: Dayanna Lobo Order Number: [id number] Ivan MD: Dayanna Lobo Interpretive Statements Okay to proceed with outlined treatment plan. Electronically Leanna d On 04-23-2025 7:12:21 EDT by Dayanna Lobo Dictated By: Jodi Lobo D.O. Signed By: 04/23/25 0712 04/23/25 0712 DD/ 1411 TD/TT: Patient Biller: BESS Reviewed date:04/21/2025 12:58:05 PM Interpretation: Performing Lab: Notes/Report: Source Facility: [place] [address] [place] [address] Cardiac Rehab Report Signed Patient: PILO CABAN MR#: [id number] : 1945 Acct:[id number] Age/Sex: 79 / F ADM Date: 04/21/25 Loc: CR Attending Dr: ALFRED LOWERY Ordering Physician: Dayanna Lobo D.O. Date of Service: 04/16/25 Procedure(s): ITP Accession Number(s): [id number] cc: [facility] Test Date: 2025-04-17 Pat Name: PILO CABAN Department: Room: - Gender: Female Chief Physical Therapist: : 1945 Requested By: Dayanna Lobo Order Number: [id number] Ivan MD: Dayanna Lobo Interpretive Statements Okay to proceed with outlined treatment plan. Electronically Signed On 04-21-2025 12:23:19 EDT by Dayanna Lobo Dictated By: Dayanna Lobo D.O. Signed By: 04/21/25 1223 04/21/25 122 DD/ 6 TD/TT: Patient Biller: [place] [address] Cardiac Rehab Report Signed Patient: CECE CABAN CIA MR#: [id number] : 1945 Acct:[id number] Age/Sex: 79 / F ADM Date: 04/21/25 Loc: CR Attending Dr: ALFRED LOWERY Ordering Physician: Dayanna Lobo D.O. Date of Service: 04/16/25 Procedure(s): ITP Accession Number(s): [id number] cc: [facility] Test Date: 2025-04-17 Pat Name: PILO DENNISON Department: 91 Room: - Gender: Female Chief Physical Therapist: : 1945 Requ ested By: Dayanna Lobo Order Number: [id number] Ivan MD: Dayanna Lobo Interpretive Statements Okay to proceed with outlined treatment plan. Electronically Leanna d On 04-21-2025 12:23:19 EDT by Dayanna Lobo Dictated By: Jodi Lobo D.O. Signed By: 04/21/25 1223 04/21/25 1223 DD/ TD/TT: Patient Biller: CT CHEST W CON Reviewed date:07/09/2024 10:16:45 AM Interpretation: Performing Lab: Notes/Report: Source Facility: [address] [address] [address] Scan Report Signed Patient: PILO CABAN MR#: [id number] : 1945 Acct:[id number] Age/Sex: 78 / F ADM Date: 07/04/24 Loc: CT Attending Dr: Dayanna Lobo D.O. Ordering Physician: Dayanna Lobo D.O. Date of Service: 07/04/24 Procedure(s): CT chest w con Accession Number(s): [id number] cc: Katerina Mortensen M.D. [place] [address] Patient Name: PILO CABAN MRN: [id number] date: 1945 Sex: F Assigned Patient Location: CT Current Patient Location: Accession/Order Number: [id number] Exam Date: 07/04/2024 09:10 Report Date: 07/05/2024 07:52 At the request of: DAYANNA LOBO Procedure: CT chest w con EXAMINATION: CT chest w con HISTORY: Multiple Pulmonary Nodules R91.8 COMPARISON: CT chest 03/13/2024, 11/03/2022, 03/10/2022 TECHNIQUE: Multi-planar CT images were obtained without and/or with IV contrast as indicated by examination type. Axial, Coronal, and Sagittal images. Dose reduction techniques were achieved by using automated exposure control and/or adjustment of mA and/or kV according to patient size and/or use of iterative reconstruction technique. FINDINGS: LUNGS: Innumerable round nodules, small patchy opacities, and confluent areas within the lungs. PLEURA: No mass, effusion, or pneumothorax. VASCULATURE: No abnormality. BREANNE: Bilateral adenopathy. MEDIASTINUM: Adenopathy. CARDIAC: Mild cardiomegaly. AORTA: No aneurysm or dissection. CHEST WALL: No mass or axillary adenopathy. BONES: No bone lesion or fracture. LIMITED ABDOMEN: Enlarged spleen, 14.8 cm. Several 1 cm stones within gallbladder. Limited images of the upper abdomen. OTHER: Negative. CT/CT chest w con IMPRESSION: 1. Innumerable pulmonary nodules, opacities, and confluent areas within the lungs bilaterally of uncertain etiology; grossly stable compared to 03/13/2024, but these have been increasing since at least 03/10/2022. 2. Stable mediastinal and bilateral hilar lymphadenopathy. Electronically authenticated by: FYN SELF Date: 07/05/2024 07:52 Dictated By: Yfn Self M.D. Signed By: 07/05/24753 DD/ 1 TD/TT: Patient Biller: [place] [address] CT Scan Report Signed Patient: CECE CABAN CIA MR#: [id number] : 1945 Acct:[id number] Age/Sex: 78 / F ADM Date: 07/04/24 Loc: CT Attending Dr: Dayanna Lobo D.O. Ordering Physician: Dayanna Lobo D.O. Date of Service: 07/04/24 Procedure(s): CT [place] w con Accession Number(s): [id number] cc: Katerina Mortensen M.D. [facility] [place] [address] Patient Name: PILO CABAN MRN: [id number] date: 1945 Sex: F Assigned Patient Location: CT Current Patient Location: Accession/Order Numb er: [id number] Exam Date: 07/04/2024 09:10 Report Date: 07/05/2024 07:52 At the request of: DAYANNA LOBO Procedure: CT chest w con EXAMINATION: CT ches t w con HISTORY: Multiple Pulmonary Nodules R91.8 COMPARISON: CT chest 03/13/2024, 11/03/2022, 03/10/2022 TECHNIQUE: Multi-blaze nicol CT images were obtained without and/or with IV contrast as indicated by examination type. Axial, Coronal, and Sagittal images. Dose reduction techniques were achieved by using automated exposure control and/or adjustment of mA and /or kV according to patient size and/or use of iterative reconstruction technique. FINDINGS: LUNGS: Innumerable r ound nodules, small patchy opacities, and confluent areas within the lungs. PLEURA: No mass, effusion, or pneumothorax. VASCULATURE: No abnormality. BREANNE: Bilateral adenopathy. MEDIASTINUM: Adenopathy. CARDIAC: Mild cardiomegaly. AORTA: No aneurysm o r dissection. CHEST WALL: No mass or axillary adenopathy. BONES: No bone lesio n or fracture. LIMITED ABDOMEN: Enl arged spleen, 14.8 cm. Several 1 cm stones within gallbladder. Limited images of the upper abdomen. OTHER: Negative. C T/CT chest w con IMPRESSION: 1. Innumerable pulmo nary nodules, opacities, and confluent areas within the lungs bilaterally of uncertain etiology; grossly stable compared to 03/13/2024, but these have been increasing since at least 03/10/2022. 2. Stable mediastina l and bilateral hilar lymphadenopathy. Electronically authenticated by: YFN SELF Date: 07/05/2024 07:52 Dictated By: Yfn Self M.D. Signed By: 07/05/24753 DD/ 1 TD/TT: Patient Biller: CREATININE Reviewed date:07/09/2024 10:14:45 AM Interpretation: Performing Lab: Notes/Report: [facility] , Creatinine 1.14 0.55-1.02 mg/dL Estimated GFR ( Niecy 56 >=60 Estimated GFR (Non- Sharla 46 >=60 Performing Lab: see note ML - [facility] Reason For Referral No Information Medications Medication SIG (Take, Route, Frequency, Duration) Notes Start Date End Date Status Symbicort 80-4.5 MCG/ACT 2 puffs Inhalation BID for 30 days Rinse after use; Dispense 1 inhaler 04/02/2024 Active Albuterol Sulfate HFA 108 (90 Base) MCG/ACT 2 puffs as needed Inhalation every 4 hrs Not-Takin g Immunizations Vaccine Route Administration Date Status Comme nts Pneumococcal (Prevnar 13) Unknown 04/09/2015 Administer ed SARS-COV-2 (COVID 19 Pfizer 30mcg/0.3mL) Unknown 10/25/2021 Administered Social History Tobacco Use: Social History Observation Description Date Details (start date - stop date) Never Smoker NA - NA Tobacco Use/Smoking Question Answer Notes Patient is a nonsmoker Tobacco Control (Standard) Question Answer Notes Tobacco use: Nonsmoker Problems Problem Type SNOMED Code ICD Code Onset Dates Problem Status W/U Status Risk Notes Problem Postnasal drip (58408953) Postnasal drip (R09.82) Active confirmed Problem 77173816 Dysphagia, oropharyngeal phase (R13.12) Active confirmed Problem Multiple pulmonary nodules (470157298) Multiple pulmonary nodules (R91.8) Active confirmed Problem Calcified lymph node s (877714025) Calcified lymph nodes (I89.8) Active confirmed Problem 105008743700313302 History of COVID-19 (Z86.16) Active confirmed 07/2021 Vital Signs Heart Rate 84 /min 08/27/2024 Temperature 95.4 degrees Fahrenheit 08/27/2024 Respiratory Rate 18 /min 08/27/2024 Oximetry 93 % 08/27/2024 Blood pressure diastolic 53 mm Hg 08/27/2024 Height 64 in 08/27/2024 Blood pressure systolic 154 mm Hg 08/27/2024 Weight 165.2 lbs 08/27/2024 BMI 28.35 kg/m2 08/27/2024 Encounters Encounter Location Date Provider Diagnosis Pulmonary Medicine [place] [address] [place] [address] 08/27/2024 [facility] Multiple pulmonary nodules R91.8 ; Chronic cough R05.3 ; Postnasal drip R09.82 ; Dysphagia, oropharyngeal phase R13.12 ; Calcified lymph nodes I89.8 and History of COVID-19 Z86.16 [facility] Medicine [place] [address] [place] [address] 07/02/2024 [facility] Multiple pulmonary nodules R91.8 Pulmonary [facility] [address] [place] [address] 01/20/2025 [facility] Assessments Encounter Date Diagnosis (ICD Code) Assessment [...] be willing to try a nasal regimen. 07/02/2024 Multiple pulmonary nodules (ICD-10 - R91.8) 08/27/2024 Postnasal drip (ICD-10 - R09.82) I [...] (ICD-10 - Z86.16) 07/2021 Plan Of Treatment Future Test Test Name Order Date CT Chest w/o contrast 12/28/2024 Insurance Providers Payer Name Payer Address Payer Phone Subscriber Number Group Number Insured Name Patient Relationship to Insured Coverage Start Date Coverage End Date [place]IC[place] [address] [place] [address] [id number] Pilo Caban Self - patient is the insured 2 [employer] [address] [address] [place] [address] [id number] Pilo Caban Self - patient is the insured 6 Medical (General) History Medical History History ICD Code History of COVID-19 Z86.16 Multiple pulmonary nodules R91.8 Postnasal drip R09.82 Calcified lymph nodes I89.8 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
--- OUTSIDE RECORDS SUMMARY | 2025-05-21 08:46 | XMS_ITS | Encounter Summary ---
Author Organization [facility] Address [address] [place] [address] Care Team Providers Care Drywall Contractor Name Role Phone Katerina Mortensen MD Primary Care Provider [phone] Encounter Details Date Type Department Care Team (Latest Contact Info) Description 05/19/2025 Travel Social History Tobacco Use Types Packs/Day Years Used Date Smoking Tobacco: Never Passive Smoke Exposure: Never Smokeless Tobacco: Never Alcohol Use Standard Drinks/Week Comments Not Currently 0 (1 standard drink = 0.6 oz pur e alcohol) [facility] Utilities Answer Date Recorded In the [...] any time in the past 12 m ont, were you homeless or living in a [facility] (including now)? Patient unable to answer 03/12/2025 [...] PM EDT documented as of this encounter Functional Status documented as of this encounter Plan of Treatment Upcoming Encounters Date Type Department Care Team (Late st Contact Info) Description 05/27/2025 1:00 PM EDT Appointment [facility] Pulmonary Function Testing [facility] 3rd [place] [phone] 07/07/2025 2:10 PM EDT Appointment [facility] CT Imaging [address] [place] [address] 08/05/2025 12:30 PM EDT Office Visit [facility] Pulmonary [address] [place] [phone] Brandt Helton MD [address] [place] [address] documented as of this encounter Visit Diagnoses Not on filedocumented in this encounter Care Teams Drywall Contractor Relationship Specialty Start Date End Date Katerina Mortensen MD [facility] [place] [address] PCP - General 03/19/25 documented as of this encounter
--- OUTSIDE RECORDS SUMMARY | 2025-05-21 08:46 | XMS_ITS | Clinical Summary ---
Author Organization [facility] Address [address] [place] [address] Care Team Providers Care Travel Services Professional Name Role Phone Quinton Pepper Primary Care Provider [phone] Allergies Active Allergy Reactions Criticality Noted Date [...] N ot on file 10/04/2020 Data from: [email or web address].[email or web address].edu/. Last address used for calculation Not on [...] (#1) 2025 Insurance [employer] Care Teams Travel Services Professional Relationship Specialty Start Date End Date Quinton Pepper [address] [place] [address] PCP - General 01/12/05
--- OUTSIDE RECORDS SUMMARY | 2025-05-21 08:46 | XMS_ITS | Encounter Summary ---
Author Organization [facility] Address [address] [place] [address] Phone Care Team Providers Care Band Splicer Name Role Phone Katerina Mortensen MD Primary Care Provider [phone] Encounter Details Date Type Department Care Team (Late st Contact Info) Description 07/04/2024 Scanned Document [facility] [address] [place] [id number] Scanning, Generic Provider Social History Tobacco Use [...] on filedocumented in this encounter Care Teams Band Splicer Relationship Specialty Start Date End Date Katerina Mortensen MD [address] [place] [address] [address] [place] [address] PCP - General 01/18/23 documented as of this encounter
--- OUTSIDE RECORDS SUMMARY | 2025-05-21 08:46 | XMS_ITS | Encounter Summary ---
Author Organization [facility] Address [address] [place] [address] Care Team Providers Care Uniform Force Captain Name Role Phone Katerina Mortensen MD Primary Care Provider [phone] Encounter Details Date Type Department Care Team (Late st Contact Info) Description 05/14/2025 Telephone [facility] [address] [place] [address] [place], [place] Social History Tobacco Use Types Packs/Day Years Used Date Smoking Tobacco: Never Smokeless Tobacco: Never Alcohol Use Standard Drinks/Week Comments Not Currently 0 (1 standard drink = 0.6 oz pur e alcohol) [facility] Utilities Answer Date Recorded In the [...] were you homeless or living in a penitentiary (including now)? Patient unable to answer 03/12/2025 [...] PM EDT documented as of this encounter Miscellaneous Notes * Telephone Encounter - Muna Osman MA - 05/14/2025 9:17 AM EDT Per Abraham Shaffer CNP- patient can mail back LifeVest due to recovered EF on echo yesterday. [facility] made patient aware. documented in this encounter Plan of Treatment Upcoming Encounters Date Type Department Care Team (Late st Contact Info) Description 05/27/2025 1:00 PM EDT Appointment [facility] Pulmonary Function Testing [address] [facility] [address]rd [place] [address] 07/07/2025 2:10 PM EDT Appointment [facility] CT Imaging [address] [place] [address] 08/05/2025 12:30 PM EDT Office Visit [facility] Pulmonary [address] [place] [phone] Brandt Helton MD [address] [place] [address] documented as of this encounter Visit Diagnoses Not on filedocumented in this encounter Care Teams Uniform Force Captain Relationship Specialty Start Date End Date Katerina Mortensen MD [address] [place], [place] [id number] PCP - General 03/19/25 documented as of this encounter
--- OUTSIDE RECORDS SUMMARY | 2025-05-21 08:46 | XMS_ITS | Clinical Summary ---
Author Organization [facility] Address [address] [place] [address] Phone Care Team Providers Care Pilot Control Operator Name Role Phone Katerina Mortensen MD Primary Care Provider [phone] Allergies No known active allergies Medications multivitamin [...] patient's age to complete this topic Hepatitis A Vaccines Aged Out No long [...] PART A AND B GENERIC MEDICARE SUPPLEMENT Care Teams Pilot Control Operator Relationship Specialty Start Date End Date Katerina Mortensen MD [address] [place] [address] PCP - General 01/18/23
--- OUTSIDE RECORDS SUMMARY | 2025-05-21 08:46 | XMS_ITS | Encounter Summary ---
Author Organization [facility] Address [address] [place] [address] Care Team Providers Care Ldr Rn Name Role Phone Unavailable Primary Care Provider Unavailabl e Encounter Details Date Type Department Care Team (Late st Contact Info) Description 06/01/2023 Abstract [facility] [address] [place] [address] Breanna Landaverde MD [address] [facility] [address] [place] [address] Social History Tobacco Use Types [...] DERM [address] [place] [address] Breanna Landaverde MD [address] [place] [address] documented as of this encounter Visit Diagnoses Not on filedocumented in this encounter
--- OUTSIDE RECORDS SUMMARY | 2025-05-21 08:46 | XMS_ITS | Encounter Summary ---
Author Organization [facility] Address [address] [place] [address] Phone Care Team Providers Care Silk Soaker Name Role Phone Katerina Mortensen MD Primary Care Provider [phone] Encounter Details Date Type Department Care Team (Late st Contact Info) Description 10/15/2024 Scanned Document [address]ukes [address] [place] [address] Cathy Benitez, CLEANER WINDOW-SERVICE DELIVERY SUPERVISOR [address] [facility] [address] [facility] Sleep Medicine, [address]eline [address], [address] [place] [address] Social History Tobacco Use Types [...] all 10/15/2024 9:25 AM EST Jenn Eduardo ENGINEERING OPERATIONS LEADER Feeling down, depressed, or hopeless Not at all 10/15/2024 9:25 AM EST Jenn Eduardo CMA Patient Health Questionnaire-2 Score 0 10/15/2024 9:25 AM EST Mateus Eduardo r ENGINEERING OPERATIONS LEADER * Calculated C-SSRS Risk Score (Lifetime/Recent) Answer Date of Assessment Author No Risk Indicated 10/15/2024 9:25 AM EST Jenn Eduardo ENGINEERING OPERATIONS LEADER * [place] Suicide Severity Rating Scale (Screener/Recent Self-Report) Question Answer Date of Assessment Author 1. Wish to be (Past 1 Month) No 024 9:25 AM EST Jenn Eduardo CMA 2. Non-Specific Active Suici abdoul Thoughts (Past 1 Month) No 10/15/2024 9:25 AM EST Kenton Eduardo ENGINEERING OPERATIONS LEADER 6. Suicidal Behavior (Lifetime) No 9:25 AM Jenn Morley CMA documented as of this encounter Plan of Treatment Not on file documented as of this encounter Visit Diagnoses Not on filedocumented in this encounter Additional Health Concerns Assessment Noted Time A fall risk assessment has been complete d for the patient 10/15/2024 9:25 AM EST documented as of this encounter Care Teams Silk Soaker Relationship Specialty Start Date End Date Katerina Mortensen MD [address] [place] [address] PCP - General 01/18/23 documented as of this encounter
[2025-05-21 10:35] LABS: Cholesterol 112 mg/dL (<=200); HDL Cholesterol 50 mg/dL (40-60); Triglycerides 83 mg/dL (<=150); VLDL CHOLESTEROL 16.6 mg/dL
== END 2025-05-21 08:41 | disposition home or self-care (01) ==
LOC: LAB 08:43
PROVIDERS: PCP Family Medicine; Visit Provider Internal Medicine Interventional Cardiology
DX: E78.2 Mixed hyperlipidemia (principal); I25.10 Atherosclerotic heart disease of native coronary artery without angina pectoris
CPT/HCPCS: 36415; 80061

== ENCOUNTER 2025-08-12 13:26 | Outpatient (OUT) | payer MEDICARE, OTHER, SELFPAY ==
--- OUTSIDE RECORDS SUMMARY | 2024-07-03 04:30 | XMS_ITS ---
Author Organization [facility] in [place] Address [address] [place] [address] Care Team Providers Care Statistical Developer Name Role Phone Katerina Mortensen Primary Care Provider Alexandru Arciniega [phone] REASON FOR VISIT 3MO-PULMONARY NODULES, COUGH Encounters Encounter Location Date Provider Diagnosis Pulmonary Medicine [place] [address] [place] [address] 07/03/2024 Alexandru Moncada Plan Of Treatment No Information Progress Notes * Leeanne CABAN MDOB: [birth year] (79 yo F)Acc No.[id number]:07/03/2024 UNLOCKED PROGRESS NOTE Follow Up Patient: Nicky BARRAZAricvida Young Provider: Jodi Moncada DO :1945 A ge:78 Y S ex:Female Date:07/03/2024 Address:[address] [phone] Pcp:Katerina Mortensen Subjective: * Chief Complaints: * 1 . 3MO-PULMONARY NODULES, COUGH. * Medical History: Objective: * Vitals: Assessment: Plan: * Treatment: * * Electronic signature of Elena Moncada DO on 08/12/2025 at 01:29 PM EDT Sign off status: Pending Visit Status: R /S (Rescheduled) * Provider: Jodi Moncada DO Date: 0 07/03/2024 Generated for Printi ng/Faxing/eTransmitting on: 1 01:29 PM EDT
--- OUTSIDE RECORDS SUMMARY | 2025-01-22 05:00 | XMS_ITS ---
Author Organization [facility] in [place] Address [address] [place] [address] Care Team Providers Care Motion Picture Equipment Machinist Name Role Phone Katerina Mortensen Primary Care Provider Alexandru Arciniega [phone] REASON FOR VISIT 6MO-PULMONARY NODULES, COUGH Encounters Encounter Location Date Provider Diagnosis Pulmonary Medicine [place] [address] [place] [address] 01/22/2025 Alexandru Moncada Plan Of Treatment No Information Progress Notes * Leeanne CABAN MDOB: [birth year] (79 yo F)Acc No.[id number]:01/22/2025 UNLOCKED PROGRESS NOTE Follow Up Patient: Nicky BARRAZAricvida Young Provider: Jodi Moncada DO :1945 A ge:79 Y S ex:Female Date:01/22/2025 Address:[address] [id number] Pcp:Katerina Mortensen Subjective: * Chief Complaints: * 1 . 6MO-PULMONARY NODULES, COUGH. * Medical History: Objective: * Vitals: Assessment: Plan: * Treatment: * * Electronic signature of Elena Moncada DO on 08/12/2025 at 01:28 PM EDT Sign off status: Pending Visit Status: C ANC (Cancelled) * Provider: Jodi Moncada DO Date: 0 01/22/2025 Generated for Claudioi ng/Faaldo/eTransmitting on: 1 01:28 PM EDT
--- OUTSIDE RECORDS SUMMARY | 2025-08-05 12:30 | XMS_ITS | Encounter Summary ---
Author Organization [facility] Address [address] [place] [address] Care Team Providers Care Geospatial Developer Name Role Phone Katerina Mortensen MD Primary Care Provider [phone] Reason for Visit * Reason Comments Sarcoidosis Encounter Details Date Type Department Care Team (Late st Contact Info) Description 08/05/2025 12:30 PM EDT Office Visit [facility] Pulmonary [address] [place] [address] [place] [phone] Brandt Helton MD [address] [place] [address] Dr BARNES [place] [id number] Pulmonary sarcoidosis (Primary Dx); Mediastinal adenopathy; Pulmonary hypertension (CMS/HCC); HFrEF (heart failure with reduced ejection fraction) (CMS/HCC); Coronary artery disease involving buckland coronary artery of buckland heart without angina pectoris Social History Tobacco Use Types Packs/Day Years Used Date Smoking Tobacco: Never Passive Smoke Exposure: Never Smokeless Tobacco: Never Tobacco Cessation:Counseling Given: Not Answered Alcohol Use Standard Drinks/Week Comments Not Currently 0 (1 standard drink = 0.6 oz pur e alcohol) [facility] Utilities Answer Date Recorded In the past 12 months has e [employer], gas, oil, or water [employer] threatened to shut off services in your [...] Date Recorded Patient Health Questionnaire-2 Score 0 08/05/2025 Transportation Answer Date Recorded In the past [...] any time in the [facility], were you homeless or living in [...] Sign Reading Time Taken Comments Blood Pressure 104/54 08/05/2025 12:55 PM EDT Pulse 55 08/05/2025 12:55 PM EDT Temperature - - Respiratory Rate - - Oxygen Saturation 99% 08/05/2025 12:55 PM EDT Inhaled Oxygen Concentration - - Weight 73 kg (161 lb) 08/05/2025 12:55 PM EDT Height - - Body Mass Index 28.07 05/19/2025 3:30 PM EDT documented in this encounter Functional Status * BP Answer Date of Assessment Author 104/54 08/05/2025 12:55 PM EDT Caitie Tellez MA * Pulse Answer Date of Assessment Author 55 08/05/2025 12:55 PM EDT Caitie Tellez MA * Patient Position Answer Date of Assessment Author Sitting 08/05/2025 12:55 PM EDT Caitie Tellez MA * BP Answer Date of Assessment Author 104/54 08/05/2025 12:55 PM EDT Caitie Tellez MA * Pulse Answer Date of Assessment Author 55 08/05/2025 12:55 PM EDT Caitie Tellez MA * SpO2 Answer Date of Assessment Author 99 08/05/2025 12:55 PM EDT Caitie Tellez MA * Over the past 2 weeks, how often have you been bothered by any of the following problems? Question Answer Date of Assessment Author Thoughts that you would be better off or hurting yourself in some way Not at all 08/05/2025 12:56 PM EDT Caitie Tellez MA Patient Health Questionnaire -9 Score 0 08/05/2025 12:56 PM EDT Caitie Tellez M A Trouble falling or staying asleep, or sleeping too much Not at all 08/05/2025 12:56 PM EDT Caitie Hager MA Feeling tired or having gege le energy Not at all 08/05/2025 12:56 PM EDT Caitie Tellez M A Poor appetite or overeating Not at all 08/05/2025 12 :56 PM EDT Caitie Tellez MA Feeling bad about yourself - or that you are a failure or have let yourself or your family down Not at all 08/05/2025 12:56 PM EDT Caitie Bernstein MA Trouble concentrating on thi ngs, such as reading the newspaper or watching television Not at all 08/05/2025 12:56 PM EZEKIELT Caitie Tellez M A Moving or speaking so slowly that other people could have noticed? Or the opposite - being so fidgety or restless that you have been moving around a lot more than usual. Not at all 08/05/2025 12:56 PM EDT Caiite Tellez M A * Over the past 2 weeks, how often have you been bothered by any of the following problems? Question Answer Date of Assessment Author Little interest or pleasure in doing things Not at all 08/05/2025 12:56 PM EDT Caitie Tellez M A Feeling down, depressed, or hopeless Not at all 08/05/2025 12:56 PM EDT Caitie Tellez M A Patient Health Questionnaire -2 Score 0 08/05/2025 12:56 PM EDT Caitie Tellez M A * BP Location Answer Date of Assessment Author Left arm 08/05/2025 12:55 PM EDT Caitie Tellez MA * Modified Malnutrition Screen Tool (MST) Question Answer Date of Assessment Author Have you been eating poorly because of a decreased appetite? No 08/05/2025 12:56 PM EDT Carmen Tellez MA Have you recently lost weigh t without trying? No 08/05/2025 12:56 PM EDT Caitie Tellez M A * Patient Position Answer Date of Assessment Author Sitting 08/05/2025 12:55 PM EDT Caitie Tellez MA documented as of this encounter Progress Notes * Brandt Helton MD - 08/05/2025 12:30 PM EDT Images from the original note were not included. Pulmonary Clinic Visit Note Patient: Leeanne Caban Age: 79 y.o. : 1945 Account No.: [id number] HPI Leeanne Caban is a 79 y.o. female who has a past medical history significant for coronary arterydisease status post PCI with multiple stent placements in 02/2025, heart failure with reduced ejection fraction (EF 35%), and presumed sarcoidosis based on imaging findings, was last seen in our clinic in April 2025 for post-hospitalization follow-up. She had previously been admitted to the ICU for acute hypoxemic respiratory failure due to metapneumovirus pneumonitis and non-ST elevation myocardial infarction on 02/2025, for which PCI and stents placement were performed. 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 Her most recent echocardiogram from February 2025 demonstrated left ventricular ejection fraction of 35%. She continues to experience intermittent dyspnea on exertion but reports improvement compared to her prior hospitalization. CT chest from March 12, 2025 demonstrated extensive multifocal airspace disease with ground-glass opacities, peribronchial thickening, and partially calcified mediastinal adenopathy. Repeat CT chest onS2024 was reviewed and showed near-complete resolution of the ground-glass opacities but persistent mediastinal and hilar lymphadenopathy with chronic peribronchial changes, raising suspicion for sarcoidosis. The patient does not have a tissue-proven diagnosis; biopsy was deferred during her hospitalization. She did have bronchoscopy with BAL to rule out infectious process. Pulmonary function testing on May 27, 2025 was reviewed and showed FVC 81%, FEV? 77%, FEV?/FVC ratio 73%, TLC 81%, and DLCO 67%. This pattern is consistent with isolated reduction in diffusion capacity without evidence of obstruction or restriction. Medical History[1] Surgical History[2] Allergies: Patient has no known allergies. Prior to Admission medications Medication Sig Start Date End Date Taking? Authorizing Provider albuterol 90 mcg/actuation inhaler Inhale 2 puffs every 6 (six) hours if needed for wheezing. Yes Historical Provider, ascorbic acid (Vitamin C) 1,000 mg tablet Take 1,000 mg by mouth in the morning. Yes Historical Provider, aspirin 81 mg EC tablet Take 1 tablet (81 mg) by mouth in the morning for 360 doses. 03/21/25 03/16/26 Yes Cm Clement MD atorvastatin (Lipitor) 40 mg tablet Take 1 tablet (40 mg) by mouth at bedtime for 93 doses. 03/20/2510 Yes Cm Clement MD clopidogrel (Plavix) 75 mg tablet Take 1 tablet (75 mg) by mouth in the morning for 360 doses. 03/21/25 03/16/26 Yes Cm Clement MD diphenhydrAMINE (BENADryl) 25 mg capsule Take 50 mg by mouth every 6 (six) hours if needed for sleep. Yes Historical Provider, furosemide (Lasix) 20 mg tablet Take 1 tablet (20 mg) by mouth in the morning. 03/20/25 08/05/25 Yes Cm Clement MD Lactobacillus acidophilus (ACIDOPHILUS ORAL) Take by mouth. Yes Historical Provider, loratadine (Claritin Reditabs) 10 mg disintegrating tablet Take 10 mg by mouth in the morning. Yes Historical Provider, metoprolol succinate XL (Toprol-XL) 100 mg 24 hr tablet Take 1 tablet (100 mg) by mouth in the morning for 93 doses. Do not crush or chew. 03/21/25 08/05/25 Yes Cm Clement MD pantoprazole (ProtoNix) 20 mg EC tablet Take 1 tablet (20 mg) by mouth before breakfast. Do not crush, chew, or split. 05/19/25 05/19/26 Yes Doug Stern MD sacubitril-valsartan (Entresto) 24-26 mg tablet Take 1 tablet by mouth two times daily. 03/20/25 08/05/25 Yes Cm Clement MD spironolactone (Aldactone) 25 mg tablet Take 1 tablet (25 mg) by mouth in the morning for 93 doses.03/21/25 08/05/25 Yes Cm Clement MD albuterol (ProAir HFA) 90 mcg/actuation inhaler Inhale 2 puffs every 4 (four) hours if needed for wheezing or shortness of breath. 08/05/25 08/05/26 Brandt Helton MD alendronate-vitamin D3 (Fosamax Plus D) 70 mg- 5,600 unit tablet Take 1 tablet by mouth every 7 (seven) days. Take in the morning with a full glass of water, on an empty stomach, and do not take anything else by mouth or lie down for the next 30 min. Patient not taking: Reported on 08/05/2025 Historical Provider, budesonide-formoteroL (Symbicort) 80-4.5 mcg/actuation inhaler Inhale 2 puffs in the morning and atbedtime. Rinse mouth with water after use to reduce aftertaste and incidence of candidiasis. Do notswallow. 08/05/25 02/01/26 Brandt Helton MD dapagliflozin propanediol (Farxiga) 10 mg Take 1 tablet (10 mg) by mouth in the morning for 94 doses. Patient not taking: Reported on 08/05/2025 03/21/25 06/23/25 Cm Clement MD midazolam (Versed) 2 mg/mL syrup Take by mouth 1 (one) time. Patient not taking: Reported on 08/05/2025 Historical Provider, Social history: reports that she has never smoked. She has never been exposed to tobacco smoke. She has never used smokeless tobacco. She reports that she does not currently use alcohol. She reports that she does not use drugs. Family History[3] Review of Systems: As mentioned in the History of Present Illness. Physical examination: Vitals: BP 104/54 (BP Location: Left arm, Patient Position: Sitting, BP Cuff Size: Adult) Pulse 55 Wt 73 kg (161 lb) SpO2 99% BMI 28.07 kg/m?? General: Awake, alert, not in acute distress HEENT: Atraumatic, normocephalic, Pupils are equal and reactive bilaterally Lungs: Clear to auscultation bilaterally, no wheezing, no rales, no rhonchi Cardiac: Regular rate and rhythm, no S3 S4, no murmurs, no rubs Abdomen: Not tender, not distended, no guarding Extremities: No peripheral edema, intact peripheral pulses Integumentary: Warm to touch, no rash, no ulcers Neuro: No tongue deviation, no facial droop, no neurological deficits Labs Results: Lab Results Component Value Date HGB 11.3 (L) 03/20/2025 HGB 11.2 (L) 03/19/2025 HGB 11.2 (L) 03/18/2025 HCT 34.5 (L) 03/20/2025 HCT 34.2 (L) 03/19/2025 HCT 35.2 (L) 03/18/2025 WBC 6.34 03/20/2025 WBC 5.51 03/19/2025 WBC 5.54 03/18/2025 BUN 19 03/20/2025 BUN 20 03/19/2025 BUN 27 (H) 03/18/2025 CREATININE 0.90 03/20/2025 CREATININE 0.86 03/19/2025 CREATININE 0.90 03/18/2025 NA 138 03/20/2025 NA 140 03/19/2025 NA 139 03/18/2025 K 3.8 03/20/2025 K 3.7 03/19/2025 K 3.7 03/18/2025 CO2 29 03/20/2025 CO2 29 03/19/2025 CO2 28 03/18/2025 PHART 7.40 03/13/2025 PHART 7.37 03/12/2025 [id number] 38 03/13/2025 ULM0HWL 33 (L) 03/12/2025 PO2ART 107 (H) 03/13/2025 PO2ART 194 (H) 03/12/2025 [id number] 23.5 03/13/2025 JAA3OPO 19.1 (L) 03/12/2025 Radiology: No Chest X-ray results found for the past [address] chest wo IV contrast Result Date: 07/08/2025 * Extensive parenchymal changes in addition to numerous partially calcified hilar/mediastinal lymphnodes, findings most suggestive of advanced chronic sarcoidosis. Previously seen multifocal airspace disease/groundglass opacities have resolved. If the patient has had more remote CT imaging, obtaining these previous studies would be helpful to ensure longer-term stability of parenchymal findings.Alternatively continued close imaging follow-up suggested. * Cholelithiasis. Electronically signed:Alexandru Espinoza MD. CT head wo IV contrast Result Date: 03/16/2025 Impression: * Advanced chronic microvascular ischemia. * Enlarged ventricles. Concerning for normalpressure hydrocephalus. If this is of concern consider follow-up nuclear medicine cisternogram. * Electronically signed: Mello Haynes. CT chest wo IV contrast Result Date: 03/12/2025 * Extensive multifocal airspace opacities and groundglass opacities with ill- defined nodular opacities also scattered throughout each lung. Findings likely represent combination of acute multifocal pneumonia as well as parenchymal changes related to chronic sarcoidosis. Correlation with any outsideimaging would be helpful for comparison purposes. Alternatively short-term follow-up CT imaging would be suggested. * Splenomegaly. * Cholelithiasis. Electronically signed: Alexandru Espinoza MD. 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 - Recommend bronchoscopy with EBUS and transbronchial needle aspiration (TBNA) for tissue diagnosis. - Cardiology clearance required prior to bronchoscopy given recent PCI and ongoing dual antiplatelet therapy. - The bronchoscopy is non-urgent and can be deferred until the patient is cleared to hold antiplatelet therapy. - DAPT would need to be held 5-7 days prior to procedure - Continue optimal heart-failure management per cardiology. - Pulmonary function test (05/27/2025) reviewed: isolated reduction in DLCO (67%). - Continue bronchodilators and ICS inhalers for now. Brandt Helton MD Pulmonary and Critical Care [facility] [1] Past Medical History: Diagnosis Date Basal cell carcinoma CHF (congestive heart failure) (CMS/HCC) Chronic restrictive lung disease CKD (chronic kidney disease), stage III (CMS/HCC) Coronary artery disease Hyperlipidemia Hypertension Myocardial infarction (CMS/HCC) Sarcoidosis [2] Past Surgical History: Procedure Laterality Date CARDIAC CATHETERIZATION CORONARY STENT PLACEMENT [3] No family history on file. documented in this encounter Plan of Treatment Upcoming Encounters Date Type Department Care Team (Late st Contact Info) Description 10/03/2025 9:00 AM EST Office Visit [facility] [address] [place] [address] Doug Stern MD [address] [facility] [place] [phone] 02/10/2026 12:30 PM EDT Office Visit [facility] Pulmonary [address] [place] [address] [place] [phone] Brandt Helton MD [address] [place] [address] [place] [address] documented as of this encounter Visit Diagnoses Diagnosis Pulmonary sarcoidosis- Primary Sarcoidosis Mediastinal adenopathy Enlargement of lymph nodes Pulmonary hypertension (CMS/HCC) Other chronic pulmonary heart diseases HFrEF (heart failure with reduced ejection fraction) (CMS/HCC) Coronary artery disease involving buckland coronary artery of buckland heart without angina pectoris documented in this encounter Care Teams Geospatial Developer Relationship Specialty Start Date End Date Katerina Mortensen MD [address] [place] [address] PCP - General 03/19/25 documented as of this encounter
--- OUTSIDE RECORDS SUMMARY | 2025-08-12 13:28 | XMS_ITS | Encounter Summary ---
Author Organization [facility] Address [address] [place] [address] Phone Care Team Providers Care Admissions Manager Rn Name Role Phone Katerina Mortensen MD Primary Care Provider [phone] Encounter Details Date Type Department Care Team (Late st Contact Info) Description 10/02/2024 Scanned Document [facility] [address] [place] [phone] Scanning, Generic Provider Social History Tobacco Use [...] documented as of this encounter Care Teams Admissions Manager Rn Relationship Specialty Start Date End Date Katerina Mortensen MD [address] [place] [address] PCP - General 01/18/23 documented as of this encounter
--- OUTSIDE RECORDS SUMMARY | 2025-08-12 13:28 | XMS_ITS | Encounter Summary ---
Author Organization [facility] Address [address] [place] [address] Phone Care Team Providers Care Construction Rigger Name Role Phone Katerina Mortensen MD Primary Care Provider [phone] Encounter Details Date Type Department Care Team (Late st Contact Info) Description 07/04/2024 Scanned Document [facility] [address] [place] [id number] Scanning, Generic Provider Social History Tobacco Use [...] on filedocumented in this encounter Care Teams Construction Rigger Relationship Specialty Start Date End Date Katerina Mortensen MD [address] [place] [address] [place] [address] PCP - General 01/18/23 documented as of this encounter
--- OUTSIDE RECORDS SUMMARY | 2025-08-12 13:28 | XMS_ITS | Encounter Summary ---
Author Organization [facility] Address [address] [place] [address] Phone Care Team Providers Care Rolling Mill Operator Helper Name Role Phone Katerina Mortensen MD Primary Care Provider [phone] Encounter Details Date Type Department Care Team (Late st Contact Info) Description 10/15/2024 Scanned Document [facility] [address] [place] [address] [address] [place] [address] Cathy Benitez, SALES CLERK SUPERVISOR-FOOD AND BEVERAGE ASSISTANT [address] [facility] [address] [facility] Sleep Medicine, [address], [address] [place] [address] Social History Tobacco Use Types [...] as of this encounter Functional Status * BP Answer Date of Assessment Author 133/82 10/15/2024 9:21 AM EST [place], Jenn, RIBBON LAPPER TENDER * Pulse Answer Date of Assessment Author 67 10/15/2024 9:21 AM EST [place] Jenn, RIBBON LAPPER TENDER * Communicable Disease Screening Question Answer Date of Assessment Author Do you have any of the following new or worsening symptoms? None of these 10/15/2024 9:10 AM EST [place], Jenn, RIBBON LAPPER TENDER * Question Answer Date of Assessment Author Little interest or pleasure in doing things Not at all 10/15/2024 9:25 AM EST [place], Jenn, RIBBON LAPPER TENDER Feeling down, depressed, or hopeless Not at all 10/15/2024 9:25 AM EST [place], Jenn, RIBBON LAPPER TENDER * Over the past 2 weeks, how often have you been bothered by any of the following problems? Question Answer Date of Assessment Author Little interest or pleasure in doing things Not at all 10/15/2024 9:25 AM EST [place], Jenn, RIBBON LAPPER TENDER Feeling down, depressed, or hopeless Not at all 10/15/2024 9:25 AM EST [place] Jenn, RIBBON LAPPER TENDER Patient Health Questionnaire-2 Score 0 10/15/2024 9:25 AM EST [place] Heathe r, RIBBON LAPPER TENDER * Calculated C-SSRS Risk Score (Lifetime/Recent) Answer Date of Assessment Author No Risk Indicated 10/15/2024 9:25 AM EST [place] Jenn, RIBBON LAPPER TENDER * [place] Suicide Severity Rating Scale (Screener/Recent Self-Report) Question Answer Date of Assessment Author 1. Wish to be (Past 1 Month) No 024 9:25 AM EST [place] Jenn, RIBBON LAPPER TENDER 2. Non-Specific Active Suici abdoul Thoughts (Past 1 Month) No 10/15/2024 9:25 AM EST [place] Heat her, RIBBON LAPPER TENDER 6. Suicidal Behavior (Lifetime) No 4 9:25 AM EST [place] Jenn, RIBBON LAPPER TENDER documented as of this encounter Plan of Treatment Not on file documented as of this encounter Visit Diagnoses Not on filedocumented in this encounter Additional Health Concerns Assessment Noted Time A fall risk assessment has been complete d for the patient 10/15/2024 9:25 AM EST documented as of this encounter Care Teams Rolling Mill Operator Helper Relationship Specialty Start Date End Date Katerina Mortensen MD [address] [place], [place] [id number] PCP - General 01/18/23 documented as of this encounter
--- OUTSIDE RECORDS SUMMARY | 2025-08-12 13:29 | XMS_ITS | Clinical Summary ---
Author Organization [facility] Address [address] [place] [address] Care Team Providers Care Criminology Teacher Name Role Phone Quinton Pepper Primary Care Provider [phone] Allergies Active Allergy Reactions Criticality Noted Date [...] N ot on file 10/04/2020 Data from: [email or web address] Last address used for calculation Not on [...] Vaccine (1 - 1-dose 75+ series) 2021 Advance Directive Discussion 10/30/2024 Covid-19 Vaccine ( - 2024- season) 2025 Influenza Vaccine (#1) 2025 Insurance [employer] Care Teams Criminology Teacher Relationship Specialty Start Date End Date Quinton Pepper [address] [place] [address] PCP - General 01/12/05
--- OUTSIDE RECORDS SUMMARY | 2025-08-12 13:29 | XMS_ITS | Clinical Summary ---
Author Organization [facility] Address [address] [place] [address] Care Team Providers Care Outreach Worker Name Role Phone Unavailable Primary Care Provider [...] Active Active Problems No known active problems Family History Medical History Relation Name Comments [...] Description 01/29/2026 9:00 AM EDT Office Visit [facility] [address] [place] [address] Breanna Landaverde MD [address] [place] [address] Health Maintenance Due Date Last Done Comments Influenza Vaccine (#1) 2025 10/08/2016 Pneumococcal Vaccine: 65+ Years Completed 10/25/2019, 10/06/2016, 04/09/2015, Additional history exists Insurance MEDICARE [employer]
--- OUTSIDE RECORDS SUMMARY | 2025-08-12 13:29 | XMS_ITS | Clinical Summary ---
Author Organization [facility] Address [address] [place] [address] Phone Care Team Providers Care Priest Name Role Phone Katerina Mortensen MD Primary Care Provider Allergies No known active allergies Medications multivitamin [...] Health Maintenance Due Date Last Done Comments Lipid Panel 1945 Medicare Annual Wellness Vis it (AWV) 1945 Hepatitis C Screening 1964 CKD: Urine Protein Screening 1965 DTaP/Tdap/Td Vaccines (1 - Tdap) 1968 Zoster Vaccines (1 of 2) 1996 Bone Density Scan 12/31/2011 RSV High Risk: (Elderly (60+ ) or Population) (1 - 1-dose 75+ series) 2021 COVID-19 Vaccine ( - 2023-2 5 season) 2025 Influenza Vaccine (#1) 2025 10/08/2016 Pneumococcal Vaccine [...] AND B GENERIC MEDICARE SUPPLEMENT Care Teams Priest Relationship Specialty Start Date End Date Katerina Mortensen MD [address] [place] [address] [place] [address] PCP - General 01/18/23
--- OUTSIDE RECORDS SUMMARY | 2025-08-12 13:29 | XMS_ITS | Clinical Summary ---
Author Organization [facility] Address [address] [place] [address] Care Team Providers Care Agricultural Extension Agent Name Role Phone Katerina Mortensen MD Primary Care Provider [phone] Allergies No known active allergies Medications albuterol [...] elevated myocardial infarction) (CMS/HCC),Coronary artery disease involving galena coronary artery of galena heart without angina pectoris Take 1 tablet (81 mg) by mouth in the morning for 360 doses. 30 tablet 11 03/21/20 25 026 Active atorvastatin (Lipitor) 40 mg tabletIndications: NSTEMI (non-ST elevated myocardial infarction) (CMS/HCC),Coronary artery disease involving galena coronary artery of galena heart without angina pectoris Take 1 tablet (40 mg) by mouth at bedtime for 93 doses. 30 tablet 3 03/20/20 25 Active clopidogrel (Plavix) 75 mg tabletIndications: NSTEMI (non-ST elevated myocardial infarction) (CMS/HCC),Coronary artery disease involving galena coronary artery of galena heart without angina pectoris Take 1 tablet (75 mg) by mouth in the morning for 360 doses. 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 30 tablet 3 03/21/20 25 Active Additional Information Patient not taking.Reported on 08/05/2025 metoprolol succinate XL (Toprol-XL) 100 mg 24 hr tabletIndications: Acute combined systolic and diastolic heart failure (CMS/HCC) Take 1 tablet (100 mg) by mouth in the morning for 93 doses. Do not crush or chew. 30 tablet 3 03/21/20 25 Active sacubitril-valsart an (Entresto) 24-26 mg tabletIndications: Acute combined systolic and diastolic heart failure (CMS/HCC) Take 1 tablet by mouth two times daily. 30 tablet 1 03/20/20 25 Active spironolactone (Aldactone) 25 mg tabletIndications: Acute combined systolic and diastolic heart failure (CMS/HCC) Take 1 tablet (25 mg) by mouth in the morning for 93 doses. 30 tablet 3 03/21/20 25 Active furosemide (Lasix) 20 mg tabletIndications: Acute combined systolic and diastolic heart failure (CMS/HCC) Take 1 tablet (20 mg) by mouth in the morning. 30 tablet 03/20/20 25 Active pantoprazole (ProtoNix) 20 mg EC tabletIndications: Coronary artery disease involving galena coronary artery of galena heart without angina pectoris Take 1 tablet (20 mg) by mouth before breakfast. Do not crush, chew, or split. 90 tablet 3 05/19/20 25 026 Active Lactobacillus acidophilus (ACIDOPHILUS ORAL) Take by mouth. Active budesonide-formote roL (Symbicort) 80-4.5 mcg/actuation inhalerIndications :Pulmonary sarcoidosis Inhale 2 puffs in the morning and at bedtime. Rinse mouth with water after use to reduce aftertaste and incidence of candidiasis. Do not swallow. 10.2 Unspecified 5 08/05/20 25 026 Active albuterol (ProAir HFA) 90 mcg/actuation inhalerIndications :Pulmonary sarcoidosis Inhale 2 puffs every 4 (four) hours if needed for wheezing or shortness of breath. 25.5 g 11 08/05/20 25 026 Active Active Problems Problem Noted Date Diagnosed [...] and aspirin lifelong -Began having frequent PVCs 518, replace K/Mg as appropriate - EP evaluated [...] aspirin lifelong Coronary artery disease invo lving galena coronary artery of galena heart without angina pectoris 03/15/2025 Assessment & [...] required intubation with mechanical ventilation with extubation 03/13 - currently on 2 L - wean oxygen as able - appears to be primarily driven by cardiomyopathy however viral pneumonia contributing factor is - pulm consulted for ICU follow-up - check chest x-ray today Assessment & Plan (03/15/2025 1:28 PM EDT): - required intubation with mechanical ventilation with extubation 03/13 - [...] Encounters Date Type Department Care Team Description 08/05/2025 12:30 PM EDT Office Visit [facility] [address] [place] [address] [place] [address] Brandt Helton MD Pulmonary sarcoidosis (Primary Dx); Mediastinal adenopathy; Pulmonary hypertension (CMS/HCC); HFrEF (heart failure with reduced ejection fraction) (CMS/HCC); Coronary artery disease involving galena coronary artery of galena heart without angina pectoris 07/07/2025 2:00 PM EDT - 07/07/2025 11:59 PM EDT Hospital Encounter [facility] CT Imaging [address] [place] [id number] Sarcoidosis Discharge Disposition: Home or Self Care () 06/03/2025 Telephone [facility] [address] [place] [address] Lori Osborne MA 05/27/2025 1:00 PM EDT - 05/27/2025 11:59 PM EDT Hospital Encounter [facility] Pulmonary Function Testing [address] [facility] 3rd [place] [address] SOTO (dyspnea on exertion) Discharge Disposition: Home or Self Care (01) 05/27/2025 Orders Only [facility] [address] [place] [address] Aj Joyner MD 05/22/2025 Orders Only [facility] [address] [place] [address] Prudence Mccoy RN 05/19/2025 3:30 PM EDT Consult [facility] [address] [place] [address] Brandt Helton MD Sarcoidosis (Primary Dx); Pulmonary hypertension (CMS/HCC); SOTO (dyspnea on exertion); Chronic systolic heart failure (CMS/HCC); Coronary artery disease due to calcified coronary lesion 05/19/2025 10:30 AM EDT Office Visit [facility] [address] [place] [phone] Doug Stern MD Coronary artery disease involving galena coronary artery of galena heart without angina pectoris (Primary Dx); Heart failure with improved ejection fraction (HFimpEF) (CMS/HCC); Mixed hyperlipidemia 05/19/2025 Travel 05/14/2025 Telephone [facility] [address] [place] [address] Muna Osman MA from Last 3 Months Family History Relation Name Status Comments Father Mother Social History Tobacco Use Types Packs/Day Years Used Date Smoking Tobacco: Never Passive Smoke Exposure: Never Smokeless Tobacco: Never Tobacco Cessation:Counseling Given: Not Answered Alcohol Use Standard Drinks/Week Comments Not Currently 0 (1 standard drink = 0.6 oz pur e alcohol) [facility] Utilities Answer Date Recorded In the past [...] any time in the past 12 m [facility], were you homeless or living in a [place] [facility] facility (including now)? Patient unable to answer 03/12/2025 [...] Pulse 55 08/05/2025 12:55 PM EDT Temperature 36.6 C (97.9 F) 03/20/2025 11:45 AM EDT Respiratory Rate 14 05/19/2025 3:30 PM EDT Oxygen Saturation 99% 08/05/2025 12:55 PM EDT Inhaled Oxygen Concentration - - Weight 73 kg (161 lb) 08/05/2025 12:55 PM EDT Height 161.3 cm (5' 3.5 ) 05/19/2025 3:30 PM EDT Body Mass Index 28.07 05/19/2025 3:30 PM EDT Plan of Treatment Upcoming Encounters Date Type Department Care Team (Late st Contact Info) Description 10/03/2025 9:00 AM EST Office Visit [facility] [address] [place] [address] Doug Stern MD [address] [facility] [place] [address] 02/10/2026 12:30 PM EDT Office Visit [facility] [address] [place] [address] [place] [address] Brandt Helton MD [address] [place] [address] [place], [place] [address] Health Maintenance Due Date Last Done Comments Medicare Annual Wellness (AWV) 1945 Adult Tetanus 1968 Zoster Vaccines (1 of 2) 1996 COVID-19 Vaccine ( season) 2025 10/25/2021, 03/25/2021, 03/01/2021 Influenza Vaccine (#1) 2025 10/08/2016 Fall Risk Screening 05/19/2026 05/19/2025 Depression Screening 08/05/2026 08/05/2025 Pneumococcal Vaccine: 50+ Years Completed 10/25/2019, 10/06/2016, [...] this topic Medical Devices Implanted Type Area Barrel Waterer Device Identifier Shelf Expiration Date Model / Serial / Lot Stent,Synergy Mr 2.25 X 38 - [id number] Implanted:Qty : 1 on 03/14/2025 by Doug Stern MD at [facility] Drug Eluting Stent N/A: [employer] [id number] 01/16/2026 [id number] / / [id number] Stent,Synergy Mr 2.50 X 16 - [id number] Implanted:Qty : 1 on 03/14/2025 by Doug Stern MD at [facility] Drug Eluting Stent N/A: [employer] [id number] 11/27/2026 [id number] / / [id number] Stent,Synergy Xd Mr 2.5 X48mm - [id number] Implanted:Qty : 1 on 03/14/2025 by Doug Stern MD at [facility] Drug Eluting Stent N/A: Heart [employer] [id number] 09/24/2026 [id number] / / [id number] Procedures Procedure Name Priority Date/Time Associated Diagnosis Comments CT CHEST WO IV CONTRAST Routine 07/07/20 2:18 PM EDT Sarcoidosis HC PULM FUNCT TST PLETHYSMOGRAP - PLETHYSMOGRAPHY Routine 05/27/2025 2:01 PM EDT SOTO (dyspnea on exertion) from Last 3 Months Results * CT chest wo IV contrast (07/07/2025 2:18 PM EDT) Anatomical Region Laterality Modality Body, Chest Computed Tomogra phy 07/08/2025 7:24 AM EDT Impressions 07/08/2025 7:29 AM EDT * Extensive parenchymal changes in addition to numerous partially calcified hilar/mediastinal lymph nodes, findings most suggestive of advanced chronic sarcoidosis. Previously seen multifocal airspace disease/groundglass opacities have resolved. If the patient has had more remote CT imaging, obtaining these previous studies would be helpful to ensure longer-term stability of parenchymal findings. Alternatively continued close imaging follow-up suggested. * Cholelithiasis. Electronically signed: Alexandru Espinoza MD. Narrative 07/08/2025 7:[address] CHEST WITHOUT CONTRAST HISTORY: Pneumonia COMPARISON: 03/12/2025 TECHNIQUE: Routine CT chest without contrast. All CT scans at this facility use dose modulation, iterative reconstruction, and/or weight based dosing when appropriate to reduce radiation dose to as low as reasonably achievable. FINDINGS: Extensive irregular consolidation, scarring and nodularity within each lung with an upper lobe predominance. Much of the airspace and groundglass opacities previously seen have resolved. Scattered lung calcifications. Numerous prominent partially calcified mediastinal and hilar lymph nodes. Visualized structures in the lower neck are unremarkable. Visualized chest wall structures are unremarkable. Cholelithiasis. No pleural or pericardial effusions. The thoracic aorta is unremarkable. Prominent central pulmonary arteries. Visualized structures in the lower neck are unremarkable. Visualized chest wall structures are unremarkable. No acute osseous abnormalities or aggressive osseous lesions. Procedure Note Alexandru Espinoza MD - 07/08/2025 CT CHEST WITHOUT CONTRAST HISTORY: Pneumonia COMPARISON: 03/12/2025 TECHNIQUE: [facility] CT chest without contrast. [facility], iterative reconstruction, and/or weight based dosingwhen appropriate to reduce radiation dose to as low as reasonably achievable. FINDINGS: Extensive irregular consolidation, scarring and nodularity within eachlung with an upper lobe predominance. Much of the airspace and groundglassopacities previously seen have resolved. Scattered lung calcifications. Numerousprominent partially calcified mediastinal and hilar lymph nodes. Visualizedstructures in the lower neck are unremarkable. Visualized chest wall structures are unremarkable. Cholelithiasis. No pleural or pericardial effusions. Thethoracic aorta is unremarkable. Prominent central pulmonary arteries. Visualized structures in the lower neck are unremarkable. Visualized chest wallstructures are unremarkable. No acute osseous abnormalities or aggressive osseouslesions. IMPRESSION: *Extensive parenchymal changes in addition to numerous partiallycalcified hilar/mediastinal lymph nodes, findings most suggestive of advancedchronic sarcoidosis. Previously seen multifocal airspace disease/groundglassopacities have resolved. If the patient has had more remote CT imaging, obtainingthese previous studies would be helpful to ensure longer-term stability ofparenchymal findings. Alternatively continued close imaging follow-up suggested. *Cholelithiasis. Electronically signed: Alexandru Espinoza MD. Brandt Helton MD IMG CT PROCEDURES Final Result * Pulmonary function testing (05/27/2025 2:01 PM EDT) Anatomical Region Laterality Modality Pulm Lab Room 05/27/2025 1:18 PM EDT Narrative 06/09/2025 8:37 AM EDT PFT Interpretation Name: Leeanne Caban Age: 79 y.o. Quality of Data: The patient's efforts are acceptable and reproducible. Test Performed: Complete pulmonary function tests, including spirometry with and without bronchodilator, measurement of lung volume, and diffusing capacity Spirometry Interpretation: Spirometry is within normal limits. Flow Volume Loops: Flow-Volume loops are normal. Lung Volumes: Plethysmographic lung volumes are within normal limits. Diffusing Capacity: Diffusing capacity of the lung is reduced at 67 % predicted. Conclusions: An isolated reduction in Diffusing Capacity is present and may represent CPFE, post COVID 19, and pulmonary hypertension. Clinical correlation is recommended. Aj Joyner MD [place] Pulmonary/Critical Care 05/27/2025 3:37 PM Result [facility] Brandt Helton MD PFT ORDERABLES Final Result from Last 3 Months Insurance MEDICARE GENERIC OTHER Advance Directives * Full Code (Latest Code Status on File) Date Activated Date Inactivated Comments 03/12/2025 5:29 AM 03/20/2025 5:16 PM Care Teams Agricultural Extension Agent Relationship Specialty Start Date End Date Katerina Mortensen MD [address] [place] [address] PCP - General 03/19/25
--- OUTSIDE RECORDS SUMMARY | 2025-08-12 13:29 | XMS_ITS | Patient Health Record ---
Author Organization [facility] Address [address] [place] [address] Care Team Providers Care Sausage Tier Name Role Phone Katerina Mortensen Primary Care Provider Alexandru Arciniega [phone] Allergies Allergen (clinical drug ingredient) Drug/Non Drug Allergy documented on EMR Reaction Allergy Type Onset Date Status Iodine rash Drug Allergy Active Results Component Value Reference Range Notes ITP Reviewed date:04/21/2025 12:58:05 PM Interpretation: Performing Lab: Notes/Report: Source Facility: [place] [address] Cardiac Rehab Report Signed Patient: LEEANNE CABAN MR#: [id number] : 1945 Acct:[id number] Age/Sex: 79 / F ADM Date: 04/21/25 Loc: CR Attending Dr: ALFRED LOWERY Ordering Physician: Alexandru Moncada D.O. 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 Electronically Signed On 04-21-2025 12:23:19 EDT by Alexandru Moncada Dictated By: Alexandru Moncada D.O. Signed By: 04/21/25 1223 04/21/25 1223 DD/ 0827 TD/TT: Courier: BESS (Not yet reviewed by pro vider) Interpretation: Performing Lab: Notes/Report: Source Facility: [place] [address] Cardiac Rehab Report Signed Patient: LEEANNE CABAN MR#: [id number] : 1945 Acct:[id number] Age/Sex: 79 / F ADM Date: 06/06/25 Loc: CR Attending Dr: ALFRED LOWERY Ordering Physician: Alexandru Moncada D.O. 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 Interpretive Statements Patient may continue cardiac rehab as outlined in the treatment plan. Electronically Signed On 06-06-2025 10:09:37 EDT by ALFRED LOWERY M.D. Dictated By: ALFRED LOWERY Signed By: 06/06/25 1009 06/06/25 1009 DD/ 100 TD/TT: Courier: BESS Reviewed date:04/23/2025 07:47:51 AM Interpretation: Performing Lab: Notes/Report: Source Facility: [place] [address] Cardiac Rehab Report Signed Patient: LEEANNE CABAN MR#: [id number] : 1945 Acct:[id number] Age/Sex: 79 / F ADM Date: 04/23/25 Loc: CR Attending Dr: ALFRED LOWERY Ordering Physician: Alexandru Moncada D.O. 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 Electronically Signed On 04-23-2025 7:12:21 EDT by Alexandru Moncada Dictated By: Alexandru Moncada D.O. Signed By: 04/23/2571104/23/25 07 DD/ 1411 TD/TT: Courier: Reason For Referral No Information Medications Medication SIG (Take, Route, Frequency, Duration) Notes Start Date End Date Status Symbicort 80-4.5 MCG/ACT 2 puffs Inhalation BID; Duration: 30 days Rinse after use; Dispense 1 [...] W/U Status Risk Notes Problem Postnasal drip (17663187) Postnasal drip (R09.82) Active confirmed Problem Oropharyngeal dysphagia (66453781) Dysphagia, oropharyngeal phase (R13.12) Active confirmed Problem Multiple pulmonary nodules (559033134) Multiple pulmonary nodules (R91.8) Active confirmed Problem Calcified lymph nodes (810829305) Calcified lymph nodes (I89.8) Active confirmed Problem History of COVID-19 (023434977496805 105) History of COVID-19 (Z86.16) Active confirmed 07/2021 Vital Signs Heart Rate 84 /min 08/27/2024 Temperature 95.4 degrees Fahrenheit 08/27/2024 Respiratory Rate 18 /min 08/27/2024 Blood pressure diastolic 53 mm Hg 08/27/2024 Oximetry 93 % 08/27/2024 Height 64 in 08/27/2024 Blood pressure systolic 154 mm Hg 08/27/2024 Weight 165.2 lbs 08/27/2024 BMI 28.35 kg/m2 08/27/2024 Encounters Encounter Location Date Provider Diagnosis [facility] [place] [address] [place] [address] 08/27/2024 [facility] Multiple pulmonary nodules R91.8 ; Chronic cough R05.3 ; Postnasal drip R09.82 ; Dysphagia, oropharyngeal phase R13.12 ; Calcified lymph nodes I89.8 and History of COVID-19 Z86.16 [facility] [place] [address] [place] [address] 01/20/2025 [facility] Assessments Encounter Date Diagnosis (ICD Code) Assessment [...] (ICD-10 - Z86.16) 07/2021 Plan Of Treatment Pending Test Test Name Order Date ITP 05/07/2025 Future Test Test Name Order Date CT Chest w/o contrast 12/28/2024 Insurance Providers Payer Name Payer Address Payer Phone Subscriber Number Group Number Insured Name Patient Relationship to Insured Coverage Start Date Coverage End Date [place] [address] [place] [address] [id number] Leeanne Caban Self - patient is the insured 2 [employer] [address] [address] [place] [address] [id number] Leeanne Caban Self - patient is the insured 6 Medical (General) History Medical History History ICD Code History of COVID-19 Z86.16 Multiple pulmonary nodules R91.8 Postnasal drip R09.82 Calcified lymph nodes I89.8 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
--- OUTSIDE RECORDS SUMMARY | 2025-08-12 13:29 | XMS_ITS | Encounter Summary ---
Author Organization [facility] Address [address] [place] [address] Care Team Providers Care Project Construction Manager Name Role Phone Unavailable Primary Care Provider Unavailabl e Encounter Details Date Type Department Care Team (Late st Contact Info) Description 06/01/2023 Abstract [facility] [address] [email or web address] [place] [address] Breanna Landaverde MD [address] [facility] [address] [place] [address] Social History Tobacco Use Types [...] Office Visit [facility] [address] [email or web address] [place] [address] Breanna Landaverde MD [address] [facility] [address] [place] [address] documented as of this encounter Visit Diagnoses Not on filedocumented in this encounter
--- OUTSIDE RECORDS SUMMARY | 2025-08-12 13:29 | XMS_ITS | Encounter Summary ---
Author Organization [facility] Address [address] [place] [address] Phone Care Team Providers Care Crew Supervisor Name Role Phone Katerina Mortensen MD Primary Care Provider [phone] Encounter Details Date Type Department Care Team (Late st Contact Info) Description 02/27/2023 Orders Only [facility] [address] [place] [address] Conversion, Onbase Social History Tobacco Use Types [...] on filedocumented in this encounter Care Teams Crew Supervisor Relationship Specialty Start Date End Date Katerina Mortensen MD [address] [place] [address] [place] [address] PCP - General 01/18/23 documented as of this encounter
--- OUTSIDE RECORDS SUMMARY | 2025-08-12 13:31 | XMS_ITS | CCD ---
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 Name Role Phone REYNOLDEMILY GOODSON Oleg Unavailable Unavailable Alexander Tomlin Unavailable Alexander Tomlin [...] Unavailable TOMLIN, DR ALEXANDER Aparicio Attending Unavailable NABOR, DR ALEXANDER Aparicio Consulting Unavailable NABOR, DR ALEXANDER Aparicio Primary Care Unavailable NABOR, DR ALEXANDER Aparicio Admitting Unavailable NABOR, DR ALEXANDER Aparicio Attending Unavailable NABOR, DR ALEXANDER Aparicio Consulting Unavailable SAMSA ., DAYANNA Admitting Unavailable SAMSA ., DAYANNA Attending Unavailable SAMSA ., DAYANNA Consulting Unavailable NABOR, DR ALEXANDER Aparicio Primary Care Unavailable NABOR, DR ALEXANDER Aparicio Admitting Unavailable NABOR, DR ALEXANDER Aparicio Attending Unavailable MARQUIS, DR BARBARA Galvan Consulting Unavailable DR ALEXANDER TOMLIN Primary Care Unavailable NABOR, DR ALEXANDER Aparicio [...] DAYANNA Consulting Unavailable Kathleen Marquez Attending Unavailable Nabor, Dr. Alexander Nina Primary Care Unav ailable Moha0n, Kathleen Attending Unavailable Dr. Alexander Tomlin Primary Care Unav katiable MD Alexander Tomlin Primary Care Provider [facility], DO Horvath Attending Provider [facility], Dayanna Attending Unavailable [facility], Dayanna Admitting Unavailable Alexander Tomlin Primary Care Unavailable Unavailable Primary Care Provider UnavailAlexander Calderon MD Primary Care Provider [phone] ALEXANDER TOMLIN Primary Care Unavailable KATHLEEN CASTRO Attending Unavailable ALEXANDER TOMLIN Primary Care Unavailable CATHY BENITEZ Attending Unavailable ALEXANDER TOMLIN Primary Care Unavailable JAMES MO Attending Unavailable ALEXANDER TOMLIN E Primary Care Unavailable KATHLEEN CASTRO Attending Unavailable MATTHEW KATHLEEN Referring Unavailable ALEXANDER TOMLIN Primary Care Unavailable CATHY BENITEZ Referring Unavailable ALEXANDER TOMLIN E Primary Care Unavailable PROVIDER, UNKNOWN Attending Unavailable PROVIDER, UNKNOWN Admitting Unavailable CHOCO LANDAVERDE Attending Unavailable CHOCO LANDAVERDE Attending Unavailable CHOCO LANDAVERDE Attending Unavailable Alexander Tomlin MD Primary Care Provider [phone] Lory Noguera CMA Attending Provider Unavaila Alexander Cummins MD Attending Provider [phone] Edmund MONTIEL-CAbraham Attending Provider [phone] Alfred Stern MD, V Attending Provider CATALINA, KAYLENE Referring Unavailable CATALINA, KAYLENE Referring Unavailable CAMILO, VIANEY CHUL Referring Unavailable CATALINA, KAYLENE Referring Unavailable MOUKARBEL, ALFRED Referring Unavailable CATALINA, KAYLENE Referring Unavailable LIZETH, DELROY T Referring Unavailable LIZETH, DELROY T Referring Unavailable FOREIGN, LYNDSEY Referring Unavailable ABRAHAM BLACKMON Attending Unavailable FOREIGN, LYNDSEY Attending Unavailable CAMILO, VIANEY CHUL Referring Unavailable FOREIGN, LYNDSEY Attending Unavailable LIZETH, DELROY T Referring Unavailable MOUKARBEL, ALFRED Attending Unavailable CATALINA, KAYLENE Referring Unavailable CATALINA, KAYLENE Referring Unavailable LINDA DAVIS Referring Unavailable ROB LOZANO Referring Unavailable CATALINA, KAYLENE Admitting Unavailable CAMILO, VIANEY CHUL Attending Unavailable CATALINA, KAYLENE Referring Unavailable Allergies Allergy Classification Reported Allergen(s) Allergy Type Date of Onset Reaction(s) Facility (18 sources) Iodine; Translations: [IODINE] Drug Allergy 11-03-2006 Rash [facility] Rep[facility] Medications Current Medications Medication Drug Class(es) Dates Sig (Normalized) Sig (Original) 0.05 ml aflibercept 40 mg/ml injection (7 sources) Vascular Endothelial Growth Factor Inhibitor aflibercept (Eylea) 2 MG/0.05ML intra-ocular injection 2 mg by Intravitreal route Active aflibercept (Eyl ea) 2 mg/0.05 mL intra-ocular injection 0.05 mL (2 mg) by intravitreal route 1 time. Every 4 months Active [id number] 200 actuat albuterol 0.09 mg/actuat metered dose inhaler (19 sources) beta2-Adrenergic Agonist Start: 04-15-2025 take 1 puff(s) by inhalation every six hours as needed for wheezing Albuterol Sulfate 90 mcg/actuation HFA aerosol inhaler Active 2 PUFF INHALATION Every 6 hours as needed for shortness of breath or wheezing April 15, 2025 12:00am Complies with drug therapy Start: 12-27-2023 End: 08-02-2024 take 1 puff(s) by inhalation every four hours as needed Albuterol Sulfate 90 mcg/actuation HFA aerosol inhaler Discontinued 1 PUFF INHALATION Every 4 hours [...] as needed Inhalation every 4 hrs Active aspirin 81 mg oral tablet (4 sources) Platelet Aggregation Inhibitor, Nonsteroidal Anti-inflammatory Drug Start: 04-15-2025 End: 05-15-2025 take 1 tablet by mouth once daily Aspirin 81 mg tablet Active 81 MG PO Daily May 15, 2025 2:07pm Complies with drug therapy take 1 tablet by mouth once michael y aspirin 81 MG EC tablet Take 81 mg by mouth Daily Active atorvastatin 40 mg oral tablet (5 sources) HMG-CoA Reductase Inhibitor Start: 04-15-2025 End: 06-03-2025 take 1 tablet by mouth once daily Atorvastatin 40 mg tablet Active 40 MG PO Daily June 03, 2025 2:59pm Complies with drug therapy 60 actuat budesonide 0.08 mg/actuat / formoterol fumarate 0.0045 mg/actuat metered dose inhaler (5 sources) Corticosteroid, beta2-Adrenergic Agonist Start: 04-02-2024 Symbicort 80-4.5 MCG/ACT inhaler every 12 (twelve) hours 04/02/2024 Active clopidogrel 75 mg oral tablet (4 sources) [id number] Platelet Inhibitor Start: 04-15-2025 End: 06-06-2025 take 1 tablet by mouth once daily Clopidogrel 75 mg tablet Active 75 MG PO Daily June 06, 2025 8:27am Complies with drug therapy fluticasone propionate 0.05 mg/actuat metered dose nasal [...] 12/11/2024 Active furosemide 20 mg oral tablet (5 sources) Loop Diuretic Start: 04-15-2025 End: 06-03-2025 take 1 tablet by mouth once daily Furosemide 20 mg tablet Active 20 MG PO Daily June 03, 2025 2:59pm Complies with drug therapy ammonium lactate 120 mg/ml topical cream (8 sources) Start: 11-22-2022 End: 03-01-2025 ammonium lactate (Amlactin) 12 % cream Indications: Xerosis cutis Apply topically Daily as needed for dry skin 145 g 11 01/30/2025 03/01/2025 Active loratadine 10 mg oral tablet (10 sources) Start: 04-15-2025 End: 07-08-2025 take 1 tablet by mouth once daily as needed Start: 12-29-2023 End: 08-02-2024 take 1 tablet by mouth once daily Loratadine (Claritin) 10 mg tablet Discontinued 10 MG PO Daily December 29, 2023 1:00am August 02, 2024 10:38am take 1 tablet by america th once daily Loratadine 10 MG Oral Tablet TAKE 1 TABLET DAILY. Quantity: 0 Refills: 0 Ordered: 13-Feb-2023 DO Active 24 hr metoprolol succinate 100 mg extended release oral tablet (4 sources) beta-Adrenergic Balwinder Start: 04-15-2025 End: 06-06-2025 take 1 tablet by mouth once daily Metoprolol Succinate 100 mg tablet extended release 24 hr Active 100 MG PO Daily June 06, 2025 8:27am Complies with drug therapy take 1 tablet by mouth in the mo rning metoprolol tartrate (Lopressor) 100 MG tablet Take [...] 1 tablet by mouth once daily. Active [place] (No Known Home Meds) (1 source) Start: [place] (No Known Home Meds) Active October 4th, 2024 12:00am saccharomyces boulardii 250 mg oral capsule (2 sources) Start: End: take 1 capsule by mouth twice daily Saccharomyces Boulardii (Daily Probiotic (S. Boulardii)) 250 mg capsule Active 250 MG PO Twice daily June 06, 2025 8:27am Complies with drug therapy sacubitril 24 mg / valsartan 26 mg oral tablet (4 sources) Angiotensin 2 Receptor Balwinder Start: End: take 1 tablet by mouth twice daily Sacubitril-Valsartan (Entresto) 24-26 mg tablet Active 1 TAB PO Twice daily May 12, 2025 8:16am Complies with drug therapy take 1 tablet by america th in the morning sacubitril-valsartan (Entresto) 24-26 MG tablet Take 1 tablet by mouth in the morning and 1 tablet before bedtime. Active spironolactone 25 mg oral tablet (5 sources) Aldosterone Antagonist Start: 04-15-2025 End: 06-03-2025 take 1 tablet by mouth once daily Spironolactone 25 mg tablet Active 25 MG PO Daily June 03, 2025 3:00pm Complies with drug therapy triamcinolone acetonide 1 mg/ml topical cream (8 sources) Corticosteroid Start: 09-05-2024 triamcinolone (Kenalog) 0.1 % cream Indications: Other atopic dermatitis Apply topically 2 (two) times a day as needed (Rash) 60 g 11 09/05/2024 Active Completed/Discontinued Medications Medication Drug Class(es) Dates Sig (Normalized) Sig (Original) alendronic acid 70 mg / cholecalciferol 2800 unt oral tablet (1 source) Bisphosphonate, Vitamin D Start: 04-15-2025 End: 04-15-2025 take 1 tablet by mouth every week Alendronate-Vitami n D3 (Fosamax Plus D) 70 mg- 2,800 unit tablet Discontinued 1 TAB PO every week April 15, 2025 12:00am April 15, 2025 12:45pm ascorbic acid 1000 mg oral tablet (5 sources) Vitamin C Start: 04-15-2025 End: 07-08-2025 take 1 tablet by mouth once daily Ascorbic Acid (Vitamin C) 1,000 mg tablet Discontinued 1000 MG PO Daily June 16, 2025 8:26am July 08, 2025 11:07am take 1 tablet by mouth once michael y Ascorbic Acid (vitamin C) 100 MG tablet Take 100 mg by mouth Daily Active azithromycin 250 mg oral tablet (4 sources) Macrolide Antimicrobial Start: 10-25-2024 End: 04-15-2025 Azithromycin 250 mg tablet Discontinued 0 PO daily 6 October 25, 2024 1:00am April 15, 2025 10:40am Take 2 on day 1 and then take 1 for the next 4 days (days 2-5) Start: 12-27-2023 End: 12-29-2023 take 2 tablets by mouth once daily, then take 1 tablet by mouth once daily Azithromycin 250 mg tablet Discontinued TAB PO Daily December 27, 2023 1:00am December 29, 2023 12:16pm FreeTextSig: as directed Orally 2 tabs po today, then 1 tab daily x 4 more days; Note: Source Status: Start; Refills: 0; Provider: Nabor Aparicio benzonatate 100 mg oral capsule (1 source) Non-narcotic Antitussive Start: 04-15-2025 End: 07-08-2025 take 1 capsule by mouth twice daily as needed for cough Benzonatate 100 mg capsule Discontinued 100 MG PO Twice daily as needed for cough April 15, 2025 12:00am July 08, 2025 10:45am cefdinir 300 mg oral capsule (1 source) Cephalosporin Antibacterial Start: 09-23-2024 End: 10-25-2024 take 1 capsule by mouth twice daily Cefdinir 300 mg capsule Discontinued 300 MG PO Twice daily September 23, 2024 1:00am October 25, 2024 10:40am dapagliflozin 10 mg oral tablet (1 source) Sodium-Glucose Cotransporter 2 Inhibitor Start: 04-15-2025 End: 04-15-2025 take 1 tablet by mouth once daily Dapagliflozin Propanediol 10 mg tablet Discontinued 10 MG PO Daily April 15, 2025 12:00am April 15, 2025 10:47am diphenhydrAMINE hydrochloride 50 mg oral capsule (2 sources) Histamine-1 Receptor Antagonist Start: 04-15-2025 End: 05-15-2025 take 1 capsule by mouth once as needed Diphenhydramine Hcl 50 mg capsule Discontinued 50 MG PO Once as needed April 15, 2025 10:44am May 15, 2025 12:36pm Eye Drops SOLN (4 sources) Eye Drops SOLN a s directed Quantity: 0 Refills: 0 Ordered: 13-Feb-2023 DO Active methylPREDNISolone 4 mg oral tablet (3 sources) Corticosteroid Start: 12-27-2023 End: 12-29-2023 Methylprednisolone 4 mg tablets,dose pack Discontinued MG PO As Directed December 27, 2023 1:00am December 29, 2023 12:16pm FreeTextSig: as directed Orally; Note: Source Status: Start; Refills: 0; Qty: 1 Packet; Provider: Nabor Aparicio Start: 12-27-2023 End: 12-29-2023 Methylprednisolone Discontin ued MG PO As Directed December 27, 2023 [...] 25 Refills: 3 Ordered: 13-Feb-2023 Matthew SHARMA Kathleen Start : 13-Feb-2023 Active pantoprazole 20 mg delayed release oral tablet (1 source) Proton Pump Inhibitor Start: 07-08-2025 End: 07-08-2025 take 1 tablet by mouth once daily Pantoprazole 20 mg tablet,delayed release (DR/EC) Discontinued 20 MG PO Daily July 08, 2025 12:00am July 08, 2025 11:07am Problems Active Problems Problem Classification Problem Date Documented Date Episodic/Chronic Abdominal pain (7 sources) Epigastric pain; Translations: [Epigastric pain] 09-23-2024 Episodic Acute myocardial infarction (4 sources) Myocardial infarction; Translations: [Non-ST elevation (NSTEMI) myocardial infarction] Onset: 03-12-2025 04-15-2025 Chronic Administrative/social admission (2 sources) Follow-up status; Translations: [Other specified counseling] Episodic Allergic reactions (2 sources) Atopic dermatitis; Translations: [Other atopic dermatitis] 09-05-2024 Chronic Chronic kidney disease (12 sources) Chronic kidney disease stage 3A ; Translations: [Chronic kidney disease, Stage III (moderate)] Onset: 09-09-2024 09-09-2024 Chronic Chronic kidney disease (2 sources) Chronic kidney disease; Translations: [Chronic kidney disease, stage 3a (Multi)] Onset: 09-09-2024 Congestive heart failure; nonhypertensive (10 sources) Chronic systolic heart failure; Translations: [Chronic systolic (congestive) heart failure] Onset: 03-12-2025 04-15-2025 Chronic Coronary atherosclerosis and other heart disease (6 sources) Atherosclerotic heart disease of [place] coronary artery without angina pectoris; Translations: [Coronary atherosclerosis due to calcified coronary lesion] Onset: 03-15-2025 Chronic Coronary atherosclerosis and other heart disease (2 sources) Coronary atherosclerosis and other heart disease; Translations: [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] Onset: 03-26-2025 Disorders of lipid metabolism (20 sources) Hyperlipidemia; Translations: [Other and unspecified hyperlipidemia] Onset: 03-02-2023 Resolved: 12-23-2024 Chronic E Codes: Natural/environment (2 sources) Insect bite - wound; Translations: [Bitten or stung by nonvenomous insect and other nonvenomous arthropods, initial encounter] 09-05-2024 Episodic Genitourinary symptoms and ill-defined conditions (3 sources) Increased frequency of urination; Translations: [Frequency of micturition] 08-02-2024 Episodic Immunity disorders (18 sources) Sarcoidosis; Translations: [Sarcoidosis, unspecified] Onset: 10-15-2024 [...] Episodic Other diseases of veins and lymphatics (3 sources) Calcified lymph nodes; Translations: [Other specified [...] Onset: 01-04-2023 Episodic Other lower respiratory disease (8 sources) Multiple nodules of lung; Translations: [Other nonspecific abnormal finding of lung field] 01-09-2024 Episodic Other lower respiratory disease (6 sources) Lung field abnormal; Translations: [Other nonspecific abnormal finding of lung field] Episodic Other lower respiratory disease (6 sources) Other forms of dyspnea; Translations: [OTHER [...] keratosis; Translations: [Inflamed seborrheic keratosis] 01-30-2025 Episodic Other upper respiratory infections (1 source) Acute maxillary sinusitis; Translations: [Acute maxillary sinusitis, unspecified] 09-23-2024 Episodic Residual codes; unclassified (1 source) Kidney [...] Problem Classification Problem Date Documented Date Episodic/Chronic Biliary tract disease (2 sources) Calculus of gallbladder without cholecystitis without obstruction; Translations: [Calculus of gallbladder without cholecystitis without obstruction] Onset: 03-12-2025 Episodic Malaise and fatigue (2 sources) Weakness; Translations: [Weakness] Onset: 03-12-2025 Episodic Other infections; including parasitic (10 sources) Personal [...] malignant neoplasm of breast] Onset: 11-03-2022 Episodic Pneumonia (except that caused by tuberculosis or sexually transmitted disease) (2 sources) Viral pneumonia, unspecified; Translations: [Viral pneumonia, unspecified] Onset: 03-12-2025 Episodic Residual codes; unclassified (1 source) Family history of malignant neoplasm of breast; Translations: [FAMILY HX MALIG NEOPLASM OF BREAST] Onset: 11-04-2022 Episodic Residual codes; unclassified (2 sources) Other specified health status; Translations: [Other specified health status] Onset: 09-09-2024 Episodic Respiratory failure; insufficiency; arrest (adult) (2 sources) Acute respiratory failure with hypoxia; Translations: [Acute respiratory failure with hypoxia] Onset: 03-12-2025 Episodic Unclassified (6 sources) History of COVID-19; Translations: [History of COVID-19] Unclassified (4 sources) Patient status finding; Translations: [Patient new to provider] Unclassified (4 sources) Never smoked tobacco; Translations: [Never a smoker] Unclassified (5 sources) Onset: 09-09-2024 Resolved: 12-10-2024 09-09-2024 Unclassified (1 source) Personal history of COVID-19; Translations: [Personal history of COVID-19] Onset: 09-09-2024 Results Test Name Value Interpretation Reference Range Facility CT CHEST WO IV CONTRASTon CT CHEST WO IV CONTRAST Invalid Interpretation Code [facility] 36on 06-03-2025 36 MD Lori Price MA Please tell her the cholesterol is very good. Continue same and follow up as planned. LVM left for patient to advise her of Dr. Stern's findings. Normal [facility] Orders Onlyon 05-27-2025 Orders Only Normal [facility] Orders Onlyon 05-22-2025 Orders Only Normal [facility] Cholesterol in LDL Calc [Mas s/Vol]Ordered By: Alfred Stern on 05-21-2025 Cholesterol in LDL [Mass/Vol] 45.4 mg/dL [facility] Comment on above: <100 mg/dl [id number] 0-129 mg/dl NEAR OR ABOVE [id number] mg/dl BORDERLINE [id number] mg/dl HIGH>190 mg/dl VERY HIGH Cholesterol in VLDL Calc [Ma ss/Vol]Ordered By: Alfred Stern on 05-21-2025 Cholesterol in VLDL [Mass/Vol] 16.6 mg/dL [facility] Laboratory - Chemistry and C hemistry - challengeOrdered By: Alfred Stern on 05-21-2025 Cholesterol [Mass/Vol] 112 mg/dL <=200 [facility] Cholesterol in HDL [Mass/Vol] 50 mg/dL 40-60 [facility] Comment on above: > or =60 mg/dl - LOW CARDIOVASCULAR RISK<40 mg/dl - HIGH CARDIOVASCULAR RISK Triglyceride [Mass/Vol] 83 mg/dL <=150 [facility] Serum or plasma total choles terol/high density lipoprotein (HDL) cholesterol mass ratOrdered By: Alfred Stern on 05-21-2025 Cholesterol.total/Cho lesterol in HDL [Mass ratio] 2.2 {ratio} [facility] Comment on above: 3.3 - 4.4 LOW RISK4. 4 - 7.1 AVERAGE RISK7.1 - 11.0 MODERATE RISK>11.0 HIGH RISK Consulton 05-19-2025 Consult Normal [facility] 36on 05-14-2025 36 Per Abraham Blackmon CNP - patient can mail back LifeVest due to recovered EF on echo yesterday. Leigh in [facility] cardiac rehab made patient aware. Normal [facility] Glomerular filtration rate ( GFR) estimation in non- AmericanOrdered By: Abraham Blackmon on 05-14-2025 GFR/1.73 sq M.predicted among non-blacks MDRD (S/P/Bld) [Vol rate/Area] 48 mL/min/{1.73_m2} Low >=60 mL/min/1.7 3m 2 [facility] - Chemistry and C hemistry - challengeOrdered By: Abraham Blackmon on 05-14-2025 Calcium [Mass/Vol] 10.0 mg/dL 8.5-10.1 [facility] Chloride [Moles/Vol] 106 mmol/L 98-107 [facility] CO2 [Moles/Vol] 30.5 mmol/L 21.0-32.0 [facility] Creatinine [Mass/Vol] 1.11 mg/dL High 0.55-1.02 [facility] GFR/1.73 sq M.predicted MDRD (S/P/Bld) [Vol rate/Area] 58 mL/min/{1.73_m2} Low >=60 mL/min/1.7 3m 2 [facility] Glucose [Mass/Vol] 93 mg/dL 74-106 [facility] Potassium [Moles/Vol] 4.6 mmol/L 3.5-5.1 [facility] Sodium [Moles/Vol] 144 mmol/L 136-145 [facility] Urea nitrogen [Mass/Vol] 16.0 mg/dL 7.0-18.0 [facility] Urea nitrogen/Creatinine [Mass ratio] 14.4 mg/mg [facility] Serum or plasma anion gap de terminationOrdered By: Abraham Blackmon on 05-14-2025 Anion gap [Moles/Vol] 12.1 mmol/L [facility] No Panel Informationon 04-24 [facility] 36on 03-25-2025 36 Normal [facility] Documentationon 03-25-2025 Documentation Normal [facility] 30on 03-20-2025 30 The patient is Moder ately Stable - Low risk of patient condition declining or worsening The patient's goals for the shift include Comfort and rest The clinical goals for the shift include VSS and safety [facility] BASIC METABOLIC PANELon 05-2 Anion gap [Moles/Vol] 7 mmol/L Normal 7-20 [facility] Comment on above: Performed By: #### L [id number] ####[facility] ([facility])[address] [place] [address] Calcium [Mass/Vol] 8.5 mg/dL Low 8.6-10.3 [facility] Comment on above: Performed By: #### L [id number] ####[facility] ([facility])[address] [place] [address] Chloride [Moles/Vol] 106 mmol/L Normal 98-107 [facility] Comment on above: Performed By: #### L [id number] ####[facility] ([facility])[address] [place] [address] CO2 [Moles/Vol] 29 mmol/L Normal 21-31 [facility] Comment on above: Performed By: #### L [id number] ####[facility] ([facility])[address] [place] [address] Creatinine [Mass/Vol] 0.90 mg/dL Normal 0.60-1.20 [facility] Comment on above: Performed By: #### L [id number] ####[facility] ([facility])[address] [place] [address] GLOMERULAR FILTRATION RATE ML/MIN/1.73 SQ M.PREDICTED 65.4 mL/min/1.73m*2 Normal >60.0 [facility] Comment on above: Result Comment: The [facility]???s estimated glomerular filtration rate (eGFR) will no [...] individuals. Performed By: #### L [id number] ####[facility] ([facility])[address] [place] [address] Glucose [Mass/Vol] 90 mg/dL Normal 70-100 [facility] Comment on above: Performed By: #### L [id number] ####[facility] ([facility])[address] [place] [address] Potassium [Moles/Vol] 3.8 mmol/L Normal 3.5-5.1 [facility] Comment on above: Performed By: #### L [id number] ####[facility] ([facility])[address] [place] [address] Sodium [Moles/Vol] 138 mmol/L Normal 136-145 [facility] Comment on above: Performed By: #### L [id number] ####[facility] ([facility])[address] [place] [address] Urea nitrogen [Mass/Vol] 19 mg/dL Normal 7-25 [facility] Comment on above: Performed By: #### L [id number] ####[facility] ([facility])[address] [place] [address] UREA NITROGEN/CREATININE (MASS RATIO) IN SER/PLAS 21.1 Normal [facility] Comment on above: Performed By: #### L [id number] ####[facility] ([facility])[address] [place] [address] CBC WITH AUTO DIFFERENTIALon 03-20-2025 Basophils (Bld) [#/Vol] 0.00 10*3/uL Normal 0.00-0.20 [facility] Comment on above: Performed By: #### L [id number] ####[facility] ([facility])[address] [place] [address] Basophils/100 WBC (Bld) 0.0 % Normal 0.0-1.0 [facility] Comment on above: Performed By: #### L [id number] ####[facility] ([facility])[address] [place] [address] Eosinophils (Bld) [#/Vol] 0.24 10*3/uL Normal 0.00-0.50 [facility] Comment on above: Performed By: #### L [id number] ####[facility] ([facility])[address] [place] [address] Eosinophils/100 WBC (Bld) 3.8 % Normal 0.0-6.0 [facility] Comment on above: Performed By: #### L [id number] ####[facility] ([facility])[address] [place] [address] Erythrocyte distribution width (RBC) [Ratio] 13.3 % Normal 11.5-15.0 [facility] Comment on above: Performed By: #### L [id number] ####[facility] ([facility])[address] [place] [address] ERYTHROCYTE MEAN CORPUSCULAR HEMOGLOBIN CONCENTRATION (G/DL) BY AUTOMATED 32.8 g/dL Normal 32.0-35.0 [facility] Comment on above: Performed By: #### L [id number] ####[facility] ([facility])[address] [place] [address] Hematocrit (Bld) [Volume fraction] 34.5 % Low 36.0-45.0 [facility] Comment on above: Performed By: #### L [id number] ####[facility] ([facility])[address] [place] [address] Hemoglobin (Bld) [Mass/Vol] 11.3 g/dL Low 12.0-15.0 [facility] Comment on above: Performed By: #### L [id number] ####[facility] ([facility])[address] [place] [address] Immature granulocytes (Bld) [#/Vol] 0.06 10*3/uL Normal 0.00-0.20 [facility] Comment on above: Performed By: #### L [id number] ####[facility] ([facility])[address] [place] [address] Immature granulocytes/100 WBC (Bld) 0.9 % Normal 0.0-1.0 [facility] Comment on above: Performed By: #### L [id number] ####[facility] ([facility])[address] [place] [address] Lymphocytes (Bld) [#/Vol] 0.71 10*3/uL Low 1.20-4.00 [facility] Comment on above: Performed By: #### L [id number] ####[facility] ([facility])[address] [place] [address] Lymphocytes/100 WBC (Bld) 11.2 % Low 20.0-45.0 [facility] Comment on above: Performed By: #### L [id number] ####[facility] ([facility])[address] [place] [address] MCH (RBC) [Entitic mass] 30.7 pg Normal 27.0-33.0 [facility] Comment on above: Performed By: #### L [id number] ####[facility] ([facility])[address] [place] [address] MCV (RBC) [Entitic vol] 93.8 fL Normal 82.0-98.0 [facility] Comment on above: Performed By: #### L [id number] ####[facility] ([facility])[address] [place] [address] Monocytes (Bld) [#/Vol] 0.66 10*3/uL Normal 0.10-1.00 [facility] Comment on above: Performed By: #### L [id number] ####[facility] ([facility])[address] [place] [address] Monocytes/100 WBC (Bld) 10.4 % Normal 5.0-12.0 [facility] Comment on above: Performed By: #### L [id number] ####[facility] ([facility])[address] [place] [address] Neutrophils (Bld) [#/Vol] 4.67 10*3/uL Normal 1.60-7.60 [facility] Comment on above: Performed By: #### L [id number] ####[facility] ([facility])[address] [place] [address] Neutrophils/100 WBC (Bld) 73.7 % High 40.0-72.0 [facility] Comment on above: Performed By: #### L [id number] ####[facility] ([facility])[address] [place] [address] NRBC (PER 100 WBCS) BY AUTOMATED COUNT 0.0 % Normal 0 [facility] Comment on above: Performed By: #### L [id number] ####[facility] ([facility])[address] [place] [address] PLATELETS (10*3/UL) IN BLOOD AUTOMATED COUNT 221 10*3/uL Normal 150-400 [facility] Comment on above: Performed By: #### L [id number] ####[facility] ([facility])[address] [place] [address] RBC (Bld) [#/Vol] 3.68 10*6/uL Low 3.80-5.00 [facility] Comment on above: Performed By: #### L [id number] ####[facility] ([facility])[address] [place] [address] WBC (Bld) [#/Vol] 6.34 10*3/uL Normal 4.00-10.60 [facility] Comment on above: Performed By: #### L [id number] ####[facility] ([facility])[address] [place] [address] DSon 03-20-2025 DS Normal [facility] MAGNESIUMon 03-20-2025 Magnesium [Mass/Vol] 2.0 mg/dL Normal 1.9-2.7 [facility] Comment on above: Performed By: #### L [id number] ####[facility] ([facility])[address] [place] [address] Orders Onlyon 03-20-2025 Orders Only [id number] Jeannie Gregory cia 1945 F Date Provider Department [place] 03/20/2025 [id number], HISTORICAL CARD [facility] No family history on file Normal [facility] Telephoneon 03-20-2025 Telephone Normal [facility] 30on 03-19-2025 30 Normal [facility] 30 Normal [facility] 30 The patient is Moder ately Stable - Low risk of patient condition declining or worsening The patient's goals for the shift include Comfort and rest The clinical goals for the shift include VSS and safety Normal [facility] B-TYPE NATRIURETIC PEPTIDEon 03-19-2025 Natriuretic peptide B (Bld) [Mass/Vol] 230 pg/mL High 0-100 [facility] Comment on above: Performed By: #### L [id number] ####[facility] ([facility])[address] [place] [address] BASIC METABOLIC PANELon 02-28 Anion gap [Moles/Vol] 8 mmol/L Normal 7-20 [facility] Comment on above: Performed By: #### L [id number] ####[facility] ([facility])[address] [place] [address] Calcium [Mass/Vol] 8.6 mg/dL Normal 8.6-10.3 [facility] Comment on above: Performed By: #### L [id number] ####[facility] ([facility])[address] [place] [address] Chloride [Moles/Vol] 107 mmol/L Normal 98-107 [facility] Comment on above: Performed By: #### L [id number] ####[facility] ([facility])[address] [place] [address] CO2 [Moles/Vol] 29 mmol/L Normal 21-31 [facility] Comment on above: Performed By: #### L [id number] ####[facility] ([facility])[address] [place] [address] Creatinine [Mass/Vol] 0.86 mg/dL Normal 0.60-1.20 [facility] Comment on above: Performed By: #### L [id number] ####[facility] ([facility])[address] [place] [address] GLOMERULAR FILTRATION RATE ML/MIN/1.73 SQ M.PREDICTED 69.1 mL/min/1.73m*2 Normal >60.0 [facility] Comment on above: Result Comment: [facility]???s estimated glomerular filtration rate (eGFR) will no [...] individuals. Performed By: #### L [id number] ####[facility] ([facility])[address] [place] [address] Glucose [Mass/Vol] 93 mg/dL Normal 70-100 [facility] Comment on above: Performed By: #### L [id number] ####[facility] ([facility])[address] [place] [address] Potassium [Moles/Vol] 3.7 mmol/L Normal 3.5-5.1 [facility] Comment on above: Performed By: #### L [id number] ####[facility] ([facility])[address] [place] [address] Sodium [Moles/Vol] 140 mmol/L Normal 136-145 [facility] Comment on above: Performed By: #### L [id number] ####[facility] ([facility])[address] [place] [address] Urea nitrogen [Mass/Vol] 20 mg/dL Normal 7-25 [facility] Comment on above: Performed By: #### L [id number] ####[facility] ([facility])[address] [place] [address] UREA NITROGEN/CREATININE (MASS RATIO) IN SER/PLAS 23.3 Normal [facility] Comment on above: Performed By: #### L [id number] ####[facility] ([facility])[address] [place] [address] CBC WITH AUTO DIFFERENTIALon 03-19-2025 Basophils (Bld) [#/Vol] 0.01 10*3/uL Normal 0.00-0.20 [facility] Comment on above: Performed By: #### L [id number] ####[facility] ([facility])[address] [place] [address] Basophils/100 WBC (Bld) 0.2 % Normal 0.0-1.0 [facility] Comment on above: Performed By: #### L [id number] ####[facility] ([facility])[address] [place] [address] Eosinophils (Bld) [#/Vol] 0.21 10*3/uL Normal 0.00-0.50 [facility] Comment on above: Performed By: #### L [id number] ####[facility] ([facility])[address] [place] [address] Eosinophils/100 WBC (Bld) 3.8 % Normal 0.0-6.0 [facility] Comment on above: Performed By: #### L [id number] ####[facility] ([facility])[address] [place] [address] Erythrocyte distribution width (RBC) [Ratio] 13.3 % Normal 11.5-15.0 [facility] Comment on above: Performed By: #### L [id number] ####[facility] ([facility])[address] [place] [address] ERYTHROCYTE MEAN CORPUSCULAR HEMOGLOBIN CONCENTRATION (G/DL) BY AUTOMATED 32.7 g/dL Normal 32.0-35.0 [facility] Comment on above: Performed By: #### L [id number] ####[facility] ([facility])[address] [place] [address] Hematocrit (Bld) [Volume fraction] 34.2 % Low 36.0-45.0 [facility] Comment on above: Performed By: #### L [id number] ####[facility] ([facility])[address] [place] [address] Hemoglobin (Bld) [Mass/Vol] 11.2 g/dL Low 12.0-15.0 [facility] Comment on above: Performed By: #### L [id number] ####[facility] ([facility])[address] [place] [address] Immature granulocytes (Bld) [#/Vol] 0.03 10*3/uL Normal 0.00-0.20 [facility] Comment on above: Performed By: #### L [id number] ####[facility] ([facility])[address] [place] [address] Immature granulocytes/100 WBC (Bld) 0.5 % Normal 0.0-1.0 [facility] Comment on above: Performed By: #### L [id number] ####[facility] ([facility])[address] [place] [address] Lymphocytes (Bld) [#/Vol] 0.59 10*3/uL Low 1.20-4.00 [facility] Comment on above: Performed By: #### L [id number] ####[facility] ([facility])[address] [place] [address] Lymphocytes/100 WBC (Bld) 10.7 % Low 20.0-45.0 [facility] Comment on above: Performed By: #### L [id number] ####[facility] ([facility])[address] [place] [address] MCH (RBC) [Entitic mass] 30.6 pg Normal 27.0-33.0 [facility] Comment on above: Performed By: #### L [id number] ####[facility] ([facility])[address] [place] [address] MCV (RBC) [Entitic vol] 93.4 fL Normal 82.0-98.0 [facility] Comment on above: Performed By: #### L [id number] ####[facility] ([facility])[address] [place] [address] Monocytes (Bld) [#/Vol] 0.55 10*3/uL Normal 0.10-1.00 [facility] Comment on above: Performed By: #### L [id number] ####[facility] ([facility])[address] [place] [address] Monocytes/100 WBC (Bld) 10.0 % Normal 5.0-12.0 [facility] Comment on above: Performed By: #### L [id number] ####[facility] ([facility])[address] [address] Neutrophils (Bld) [#/Vol] 4.12 10*3/uL Normal 1.60-7.60 [facility] Comment on above: Performed By: #### L [id number] ####[facility] ([facility])[address] [place] [address] Neutrophils/100 WBC (Bld) 74.8 % High 40.0-72.0 [facility] Comment on above: Performed By: #### L [id number] ####[facility] ([facility])[address] [address] NRBC (PER 100 WBCS) BY AUTOMATED COUNT 0.0 % Normal 0 [facility] Comment on above: Performed By: #### L [id number] ####[facility] ([facility])[address] [address] PLATELETS (10*3/UL) IN BLOOD AUTOMATED COUNT 191 10*3/uL Normal 150-400 [facility] Comment on above: Performed By: #### L [id number] ####[facility] ([facility])[address] [place] [address] RBC (Bld) [#/Vol] 3.66 10*6/uL Low 3.80-5.00 [facility] Comment on above: Performed By: #### L [id number] ####[facility] ([facility])[address] [place] [address] WBC (Bld) [#/Vol] 5.51 10*3/uL Normal 4.00-10.60 [facility] Comment on above: Performed By: #### L [id number] ####[facility] ([facility])[address] [place] [address] MAGNESIUMon 03-19-2025 Magnesium [Mass/Vol] 2.0 mg/dL Normal 1.9-2.7 [facility] Comment on above: Performed By: #### L [id number] ####[facility] ([facility])[address] [place] [address] 30on 03-18-2025 30 The patient is Moder ately Stable - Low risk of patient condition declining or worsening The patient's goals for the shift include comfort The clinical goals for the shift include VSS, safety Normal [facility] 30 Normal [facility] BASIC METABOLIC PANELon 02-28 Anion gap [Moles/Vol] 7 mmol/L Normal 7-20 [facility] Comment on above: Performed By: #### L [id number] ####[facility] ([facility])[address] [place] [address] Calcium [Mass/Vol] 8.6 mg/dL Normal 8.6-10.3 [facility] Comment on above: Performed By: #### L [id number] ####[facility] ([facility])[address] [place] [address] Chloride [Moles/Vol] 108 mmol/L High 98-107 [facility] Comment on above: Performed By: #### L [id number] ####[facility] ([facility])[address] [place] [address] CO2 [Moles/Vol] 28 mmol/L Normal 21-31 [facility] Comment on above: Performed By: #### L [id number] ####[facility] ([facility])[address] [place] [address] Creatinine [Mass/Vol] 0.90 mg/dL Normal 0.60-1.20 [facility] Comment on above: Performed By: #### L [id number] ####[facility] ([facility])[address] [place] [address] GLOMERULAR FILTRATION RATE ML/MIN/1.73 SQ M.PREDICTED 65.4 mL/min/1.73m*2 Normal >60.0 [facility] Comment on above: Result Comment: [facility]???s estimated glomerular filtration rate (eGFR) will no [...] individuals. Performed By: #### L [id number] ####[facility] ([facility])[address] [place] [address] Glucose [Mass/Vol] 95 mg/dL Normal 70-100 [facility] Comment on above: Performed By: #### L [id number] ####[facility] ([facility])[address] [place] [address] Potassium [Moles/Vol] 3.7 mmol/L Normal 3.5-5.1 [facility] Comment on above: Performed By: #### L [id number] ####[facility] ([facility])[address] [place] [address] Sodium [Moles/Vol] 139 mmol/L Normal 136-145 [facility] Comment on above: Performed By: #### L [id number] ####[facility] ([facility])[address] [place] [address] Urea nitrogen [Mass/Vol] 27 mg/dL High 7-25 [facility] Comment on above: Performed By: #### L [id number] ####[facility] ([facility])[address] [place] [address] UREA NITROGEN/CREATININE (MASS RATIO) IN SER/PLAS 30.0 Normal [facility] Comment on above: Performed By: #### L [id number] ####[facility] ([facility])[address] [place] [address] CBC WITH AUTO DIFFERENTIALon 03-18-2025 Basophils (Bld) [#/Vol] 0.01 10*3/uL Normal 0.00-0.20 [facility] Comment on above: Performed By: #### L [id number] ####[facility] ([facility])[address] [place] [address] Basophils/100 WBC (Bld) 0.2 % Normal 0.0-1.0 [facility] Comment on above: Performed By: #### L [id number] ####[facility] ([facility])[address] [place] [address] Eosinophils (Bld) [#/Vol] 0.07 10*3/uL Normal 0.00-0.50 [facility] Comment on above: Performed By: #### L [id number] ####[facility] ([facility])[address] [place] [address] Eosinophils/100 WBC (Bld) 1.3 % Normal 0.0-6.0 [facility] Comment on above: Performed By: #### L [id number] ####[facility] ([facility])[address] [place] [address] Erythrocyte distribution width (RBC) [Ratio] 13.2 % Normal 11.5-15.0 [facility] Comment on above: Performed By: #### L [id number] ####[facility] ([facility])[address] [place] [address] ERYTHROCYTE MEAN CORPUSCULAR HEMOGLOBIN CONCENTRATION (G/DL) BY AUTOMATED 31.8 g/dL Low 32.0-35.0 [facility] Comment on above: Performed By: #### L [id number] ####[facility] ([facility])[address] [place] [address] Hematocrit (Bld) [Volume fraction] 35.2 % Low 36.0-45.0 [facility] Comment on above: Performed By: #### L [id number] ####[facility] ([facility])[address] [place] [address] Hemoglobin (Bld) [Mass/Vol] 11.2 g/dL Low 12.0-15.0 [facility] Comment on above: Performed By: #### L [id number] ####[facility] ([facility])[address] [place] [address] Immature granulocytes (Bld) [#/Vol] 0.07 10*3/uL Normal 0.00-0.20 [facility] Comment on above: Performed By: #### L [id number] ####[facility] ([facility])[address] [place] [address] Immature granulocytes/100 WBC (Bld) 1.3 % High 0.0-1.0 [facility] Comment on above: Performed By: #### L [id number] ####[facility] ([facility])[address] [place] [address] Lymphocytes (Bld) [#/Vol] 0.60 10*3/uL Low 1.20-4.00 [facility] Comment on above: Performed By: #### L [id number] ####[facility] ([facility])[address] [place] [address] Lymphocytes/100 WBC (Bld) 10.8 % Low 20.0-45.0 [facility] Comment on above: Performed By: #### L [id number] ####[facility] ([facility])[address] [place] [address] MCH (RBC) [Entitic mass] 30.8 pg Normal 27.0-33.0 [facility] Comment on above: Performed By: #### L [id number] ####[facility] ([facility])[address] [place] [address] MCV (RBC) [Entitic vol] 96.7 fL Normal 82.0-98.0 [facility] Comment on above: Performed By: #### L [id number] ####[facility] ([facility]ER)[address] [place] [address] Monocytes (Bld) [#/Vol] 0.53 10*3/uL Normal 0.10-1.00 [facility] Comment on above: Performed By: #### L [id number] ####[facility] ([facility])[address] [place] [address] Monocytes/100 WBC (Bld) 9.6 % Normal 5.0-12.0 [facility] Comment on above: Performed By: #### L [id number] ####[facility] ([facility])[address] [place] [address] Neutrophils (Bld) [#/Vol] 4.26 10*3/uL Normal 1.60-7.60 [facility] Comment on above: Performed By: #### L [id number] ####[facility] ([facility])[address] [place] [address] Neutrophils/100 WBC (Bld) 76.8 % High 40.0-72.0 [facility] Comment on above: Performed By: #### L [id number] ####[facility] ([facility])[address] [place] [address] NRBC (PER 100 WBCS) BY AUTOMATED COUNT 0.0 % Normal 0 [facility] Comment on above: Performed By: #### L [id number] ####[facility] ([facility])[address] [place] [address] PLATELETS (10*3/UL) IN BLOOD AUTOMATED COUNT 177 10*3/uL Normal 150-400 [facility] Comment on above: Performed By: #### L [id number] ####[facility] ([facility])[address] [place] [address] RBC (Bld) [#/Vol] 3.64 10*6/uL Low 3.80-5.00 [facility] Comment on above: Performed By: #### L [id number] ####[facility] ([facility])[address] [place] [address] WBC (Bld) [#/Vol] 5.54 10*3/uL Normal 4.00-10.60 [facility] Comment on above: Performed By: #### L [id number] ####[facility] ([facility])[address] [place] [address] MAGNESIUMon 03-18-2025 Magnesium [Mass/Vol] 2.2 mg/dL Normal 1.9-2.7 [facility] Comment on above: Performed By: #### L [id number] ####[facility] ([facility])[address] [place] [address] 30on 03-17-2025 30 Normal [facility] BASIC METABOLIC PANELon 02-27 Anion gap [Moles/Vol] 8 mmol/L Normal 7-20 [facility] Comment on above: Performed By: #### L [id number] ####[facility] ([facility])[address] [place] [address] Calcium [Mass/Vol] 8.7 mg/dL Normal 8.6-10.3 [facility] Comment on above: Performed By: #### L [id number] ####[facility] ([facility])[address] [place] [address] Chloride [Moles/Vol] 106 mmol/L Normal 98-107 [facility] Comment on above: Performed By: #### L [id number] ####[facility] ([facility])[address] [place] [address] CO2 [Moles/Vol] 29 mmol/L Normal 21-31 [facility] Comment on above: Performed By: #### L [id number] ####[facility] ([facility])[address] [place] [address] Creatinine [Mass/Vol] 0.76 mg/dL Normal 0.60-1.20 [facility] Comment on above: Performed By: #### L [id number] ####[facility] ([facility])[address] [place] [address] GLOMERULAR FILTRATION RATE ML/MIN/1.73 SQ M.PREDICTED 80.2 mL/min/1.73m*2 Normal >60.0 [facility] Comment on above: Result Comment: [facility]???s estimated glomerular filtration rate (eGFR) will no [...] individuals. Performed By: #### L [id number] ####[facility] ([facility])[address] [place] [address] Glucose [Mass/Vol] 97 mg/dL Normal 70-100 [facility] Comment on above: Performed By: #### L [id number] ####[facility] ([facility])[address] [place] [address] Potassium [Moles/Vol] 3.4 mmol/L Low 3.5-5.1 [facility] Comment on above: Performed By: #### L [id number] ####[facility] ([facility])[address] [place] [address] Sodium [Moles/Vol] 140 mmol/L Normal 136-145 [facility] Comment on above: Performed By: #### L [id number] ####[facility] ([facility])[address] [place] [address] Urea nitrogen [Mass/Vol] 26 mg/dL High 7-25 [facility] Comment on above: Performed By: #### L [id number] ####[facility] ([facility])[address] [place] [address] UREA NITROGEN/CREATININE (MASS RATIO) IN SER/PLAS 34.2 Normal [facility] Comment on above: Performed By: #### L [id number] ####[facility] ([facility])[address] [place] [address] CBC WITH AUTO DIFFERENTIALon 03-17-2025 Basophils (Bld) [#/Vol] 0.01 10*3/uL Normal 0.00-0.20 [facility] Comment on above: Performed By: #### L [id number] ####[facility] ([facility])[address] [place] [address] Basophils/100 WBC (Bld) 0.2 % Normal 0.0-1.0 [facility] Comment on above: Performed By: #### L [id number] ####[facility] ([facility])[address] [place] [address] Eosinophils (Bld) [#/Vol] 0.02 10*3/uL Normal 0.00-0.50 [facility] Comment on above: Performed By: #### L [id number] ####[facility] ([facility])[address] [place] [address] Eosinophils/100 WBC (Bld) 0.3 % Normal 0.0-6.0 [facility] Comment on above: Performed By: #### L [id number] ####[facility] ([facility])[address] [place] [address] Erythrocyte distribution width (RBC) [Ratio] 13.4 % Normal 11.5-15.0 [facility] Comment on above: Performed By: #### L [id number] ####[facility] ([facility])[address] [place] [address] ERYTHROCYTE MEAN CORPUSCULAR HEMOGLOBIN CONCENTRATION (G/DL) BY AUTOMATED 33.1 g/dL Normal 32.0-35.0 [facility] [facility] Comment on above: Performed By: #### L [id number] ####[facility] ([facility])[address] [place] [address] Hematocrit (Bld) [Volume fraction] 36.0 % Normal 36.0-45.0 [facility] Comment on above: Performed By: #### L [id number] ####[facility] ([facility])[address] [place] [address] Hemoglobin (Bld) [Mass/Vol] 11.9 g/dL Low 12.0-15.0 [facility] Comment on above: Performed By: #### L [id number] ####[facility] ([facility])[address] [place] [address] Immature granulocytes (Bld) [#/Vol] 0.06 10*3/uL Normal 0.00-0.20 [facility] Comment on above: Performed By: #### L [id number] ####[facility] ([facility])[address] [place] [address] Immature granulocytes/100 WBC (Bld) 1.0 % Normal 0.0-1.0 [facility] Comment on above: Performed By: #### L [id number] ####[facility] ([facility])[address] [place] [address] Lymphocytes (Bld) [#/Vol] 0.51 10*3/uL Low 1.20-4.00 [facility] Comment on above: Performed By: #### L [id number] ####[facility] ([facility])[address] [place] [address] Lymphocytes/100 WBC (Bld) 8.6 % Low 20.0-45.0 [facility] Comment on above: Performed By: #### L [id number] ####[facility] ([facility])[address] [place] [address] MCH (RBC) [Entitic mass] 30.8 pg Normal 27.0-33.0 [facility] Comment on above: Performed By: #### L [id number] ####[facility] ([facility])[address] [place] [address] MCV (RBC) [Entitic vol] 93.3 fL Normal 82.0-98.0 [facility] Comment on above: Performed By: #### L [id number] ####[facility] ([facility])[address] [place] [address] Monocytes (Bld) [#/Vol] 0.47 10*3/uL Normal 0.10-1.00 [facility] Comment on above: Performed By: #### L [id number] ####[facility] ([facility])[address] [place] [address] Monocytes/100 WBC (Bld) 7.9 % Normal 5.0-12.0 [facility] Comment on above: Performed By: #### L [id number] ####[facility] ([facility])[address] [place], [place] [address] Neutrophils (Bld) [#/Vol] 4.86 10*3/uL Normal 1.60-7.60 [facility] Comment on above: Performed By: #### L [id number] ####[facility] ([facility])[address] [place] [address] Neutrophils/100 WBC (Bld) 82.0 % High 40.0-72.0 [facility] Comment on above: Performed By: #### L [id number] ####[facility] ([facility])[address] [place] [address] NRBC (PER 100 WBCS) BY AUTOMATED COUNT 0.0 % Normal 0 [facility] Comment on above: Performed By: #### L [id number] ####[facility] ([facility])[address] [place] [address] PLATELETS (10*3/UL) IN BLOOD AUTOMATED COUNT 185 10*3/uL Normal 150-400 [facility] Comment on above: Performed By: #### L [id number] ####[facility] ([facility])[address] [place], [place] [address] RBC (Bld) [#/Vol] 3.86 10*6/uL Normal 3.80-5.00 [facility] Comment on above: Performed By: #### L [id number] ####[facility] ([facility])[address] [place] [address] WBC (Bld) [#/Vol] 5.93 10*3/uL Normal 4.00-10.60 [facility] Comment on above: Performed By: #### L [id number] ####[facility] ([facility])[address] [place] [address] CONSULTon 03-17-2025 CONSULT Normal [facility] CONSULT Normal [facility] 30on 03-16-2025 30 Normal [facility] BASIC METABOLIC PANELon 02-27 Anion gap [Moles/Vol] 11 mmol/L Normal 7-20 [facility] Comment on above: Performed By: #### L [id number] ####[facility] ([facility])[address] [place] [address] Calcium [Mass/Vol] 9.0 mg/dL Normal 8.6-10.3 [facility] Comment on above: Performed By: #### L [id number] ####[facility] ([facility])[address] [place] [address] Chloride [Moles/Vol] 104 mmol/L Normal 98-107 [facility] Comment on above: Performed By: #### L [id number] ####[facility] ([facility])[address] [place] [address] CO2 [Moles/Vol] 29 mmol/L Normal 21-31 [facility] Comment on above: Performed By: #### L [id number] ####[facility] ([facility])[address] [place] [address] Creatinine [Mass/Vol] 0.89 mg/dL Normal 0.60-1.20 [facility] Comment on above: Performed By: #### L [id number] ####[facility] ([facility])[address] [place] [address] GLOMERULAR FILTRATION RATE ML/MIN/1.73 SQ M.PREDICTED 66.3 mL/min/1.73m*2 Normal >60.0 [facility] Comment on above: Result Comment: [facility]???s estimated glomerular filtration rate (eGFR) will no [...] individuals. Performed By: #### L [id number] ####[facility] ([facility])[address] [place] [address] Glucose [Mass/Vol] 133 mg/dL High 70-100 [facility] Comment on above: Performed By: #### L [id number] ####[facility] ([facility])[address] [place] [address] Potassium [Moles/Vol] 3.6 mmol/L Normal 3.5-5.1 [facility] Comment on above: Performed By: #### L [id number] ####[facility] ([facility])[address] [place] [address] Sodium [Moles/Vol] 140 mmol/L Normal 136-145 [facility] Comment on above: Performed By: #### L [id number] ####[facility] ([facility])[address] [place] [address] Urea nitrogen [Mass/Vol] 29 mg/dL High 7-25 [facility] Comment on above: Performed By: #### L [id number] ####[facility] ([facility])[address] [place] [address] UREA NITROGEN/CREATININE (MASS RATIO) IN SER/PLAS 32.6 Normal [facility] Comment on above: Performed By: #### L [id number] ####[facility] ([facility])[address] [place] [address] CBC WITH AUTO DIFFERENTIALon 03-16-2025 Basophils (Bld) [#/Vol] 0.01 10*3/uL Normal 0.00-0.20 [facility] Comment on above: Performed By: #### L [id number] ####[facility] ([facility])[address] [place] [address] Basophils/100 WBC (Bld) 0.1 % Normal 0.0-1.0 [facility] Comment on above: Performed By: #### L [id number] ####[facility] ([facility])[address] [place] [address] Eosinophils (Bld) [#/Vol] 0.00 10*3/uL Normal 0.00-0.50 [facility] Comment on above: Performed By: #### L [id number] ####[facility] ([facility])[address] [place] [address] Eosinophils/100 WBC (Bld) 0.0 % Normal 0.0-6.0 [facility] Comment on above: Performed By: #### L [id number] ####[facility] ([facility])[address] [place] [address] Erythrocyte distribution width (RBC) [Ratio] 13.5 % Normal 11.5-15.0 [facility] Comment on above: Performed By: #### L [id number] ####[facility] ([facility])[address] [place] [address] ERYTHROCYTE MEAN CORPUSCULAR HEMOGLOBIN CONCENTRATION (G/DL) BY AUTOMATED 32.8 g/dL Normal 32.0-35.0 [facility] Comment on above: Performed By: #### L [id number] ####[facility] ([facility])[address] [place] [address] Hematocrit (Bld) [Volume fraction] 39.0 % Normal 36.0-45.0 [facility] Comment on above: Performed By: #### L [id number] ####[facility] ([facility])[address] [place] [address] Hemoglobin (Bld) [Mass/Vol] 12.8 g/dL Normal 12.0-15.0 [facility] Comment on above: Performed By: #### L [id number] ####[facility] ([facility])[address] [place] [address] Immature granulocytes (Bld) [#/Vol] 0.08 10*3/uL Normal 0.00-0.20 [facility] Comment on above: Performed By: #### L [id number] ####[facility] ([facility])[address] [place] [address] Immature granulocytes/100 WBC (Bld) 0.9 % Normal 0.0-1.0 [facility] Comment on above: Performed By: #### L [id number] ####[facility] ([facility])[address] [place] [address] Lymphocytes (Bld) [#/Vol] 0.40 10*3/uL Low 1.20-4.00 [facility] Comment on above: Performed By: #### L [id number] ####[facility] ([facility])[address] [place] [address] Lymphocytes/100 WBC (Bld) 4.3 % Low 20.0-45.0 [facility] Comment on above: Performed By: #### L [id number] ####[facility] ([facility])[address] [place] [address] MCH (RBC) [Entitic mass] 30.6 pg Normal 27.0-33.0 [facility] Comment on above: Performed By: #### L [id number] ####[facility] ([facility])[address] [place] [address] MCV (RBC) [Entitic vol] 93.3 fL Normal 82.0-98.0 [facility] Comment on above: Performed By: #### L [id number] ####[facility] ([facility])[address] [place] [address] Monocytes (Bld) [#/Vol] 0.45 10*3/uL Normal 0.10-1.00 [facility] Comment on above: Performed By: #### L [id number] ####[facility] ([facility])[address] [place] [address] Monocytes/100 WBC (Bld) 4.9 % Low 5.0-12.0 [facility] Comment on above: Performed By: #### L [id number] ####[facility] ([facility])[address] [place] [address] Neutrophils (Bld) [#/Vol] 8.30 10*3/uL High 1.60-7.60 [facility] Comment on above: Performed By: #### L [id number] ####[facility] ([facility])[address] [place] [address] Neutrophils/100 WBC (Bld) 89.8 % High 40.0-72.0 [facility] Comment on above: Performed By: #### L [id number] ####[facility] ([facility])[address] [place] [address] NRBC (PER 100 WBCS) BY AUTOMATED COUNT 0.0 % Normal 0 [facility] Comment on above: Performed By: #### L [id number] ####[facility] ([facility])[address] [place] [address] PLATELETS (10*3/UL) IN BLOOD AUTOMATED COUNT 234 10*3/uL Normal 150-400 [facility] Comment on above: Performed By: #### L [id number] ####[facility] ([facility])[address] [place] [address] RBC (Bld) [#/Vol] 4.18 10*6/uL Normal 3.80-5.00 [facility] Comment on above: Performed By: #### L [id number] ####[facility] ([facility])[address] [place], [place] [address] WBC (Bld) [#/Vol] 9.24 10*3/uL Normal 4.00-10.60 [facility] Comment on above: Performed By: #### L [id number] ####[facility] ([facility])[address] [place] [address] CT HEAD WO IV CONTRASTon CT HEAD WO IV CONTRAST Normal [facility] HIGH SENSITIVITY TROPONIN Io n 03-16-2025 HS TROPONIN I (NG/L) 2801 ng/L Critically high <15 [facility] Comment on above: Performed By: #### L [id number] ####[facility] ([facility])[address] [place] [address] 30on 03-15-2025 30 Normal [facility] ANTI-XA (HEPARIN LEVEL)on HEPARIN UNFRACTIONATED (U/ML) IN PPP BY CHROMOGENIC METHOD <0.10 Invalid Interpretation Code 0.3-0.7 [facility] Comment on above: Order Comment: Check anti-Xa level every 6 hours while on heparin infusion, or per protocol. Result Comment: Hargill roxaban and Apixaban will interfere with the anti Xa assay used to monitor UFH and LMWH. Performed By: #### L [id number] ####[facility] ([facility])[address] [place] [address] CBC WITH AUTO DIFFERENTIALon 03-15-2025 Basophils (Bld) [#/Vol] 0.01 10*3/uL Normal 0.00-0.20 [facility] Comment on above: Performed By: #### L [id number] ####[facility] ([facility])[address] [place] [address] Basophils/100 WBC (Bld) 0.1 % Normal 0.0-1.0 [facility] Comment on above: Performed By: #### L [id number] ####[facility] ([facility])[address] [place] [address] Eosinophils (Bld) [#/Vol] 0.00 10*3/uL Normal 0.00-0.50 [facility] Comment on above: Performed By: #### L [id number] ####[facility] ([facility])[address] [place] [address] Eosinophils/100 WBC (Bld) 0.0 % Normal 0.0-6.0 [facility] Comment on above: Performed By: #### L [id number] ####[facility] ([facility])[address] [place] [address] Erythrocyte distribution width (RBC) [Ratio] 13.9 % Normal 11.5-15.0 [facility] Comment on above: Performed By: #### L [id number] ####[facility] ([facility])[address] [place] [address] ERYTHROCYTE MEAN CORPUSCULAR HEMOGLOBIN CONCENTRATION (G/DL) BY AUTOMATED 32.7 g/dL Normal 32.0-35.0 [facility] Comment on above: Performed By: #### L [id number] ####[facility] ([facility])[address] [place] [address] Hematocrit (Bld) [Volume fraction] 36.7 % Normal 36.0-45.0 [facility] Comment on above: Performed By: #### L [id number] ####[facility] ([facility])[address] [place] [address] Hemoglobin (Bld) [Mass/Vol] 12.0 g/dL Normal 12.0-15.0 [facility] Comment on above: Performed By: #### L [id number] ####[facility] ([facility])[address] [place] [address] Immature granulocytes (Bld) [#/Vol] 0.04 10*3/uL Normal 0.00-0.20 [facility] Comment on above: Performed By: #### L [id number] ####[facility] ([facility])[address] [place] [address] Immature granulocytes/100 WBC (Bld) 0.4 % Normal 0.0-1.0 [facility] Comment on above: Performed By: #### L [id number] ####[facility] ([facility])[address] [place] [address] Lymphocytes (Bld) [#/Vol] 0.38 10*3/uL Low 1.20-4.00 [facility] Comment on above: Performed By: #### L [id number] ####[facility] ([facility])[address] [place] [address] Lymphocytes/100 WBC (Bld) 3.6 % Low 20.0-45.0 [facility] Comment on above: Performed By: #### L [id number] ####[facility] ([facility])[address] [place] [address] MCH (RBC) [Entitic mass] 30.8 pg Normal 27.0-33.0 [facility] Comment on above: Performed By: #### L [id number] ####[facility] ([facility])[address] [place] [address] MCV (RBC) [Entitic vol] 94.3 fL Normal 82.0-98.0 [facility] Comment on above: Performed By: #### L [id number] ####[facility] ([facility])[address] [place] [address] Monocytes (Bld) [#/Vol] 0.43 10*3/uL Normal 0.10-1.00 [facility] Comment on above: Performed By: #### L [id number] ####[facility] ([facility])[address] [place] [address] Monocytes/100 WBC (Bld) 4.0 % Low 5.0-12.0 [facility] Comment on above: Performed By: #### L [id number] ####[facility] ([facility])[address] [place] [address] Neutrophils (Bld) [#/Vol] 9.76 10*3/uL High 1.60-7.60 [facility] Comment on above: Performed By: #### L [id number] ####[facility] ([facility])[address] [place] [address] Neutrophils/100 WBC (Bld) 91.9 % High 40.0-72.0 [facility] Comment on above: Performed By: #### L [id number] ####[facility] ([facility])[address] [place] [address] NRBC (PER 100 WBCS) BY AUTOMATED COUNT 0.0 % Normal 0 [facility] Comment on above: Performed By: #### L [id number] ####[facility] ([facility])[address] [place] [address] PLATELETS (10*3/UL) IN BLOOD AUTOMATED COUNT 190 10*3/uL Normal 150-400 [facility] Comment on above: Performed By: #### L [id number] ####[facility] ([facility])[address] [place] [address] RBC (Bld) [#/Vol] 3.89 10*6/uL Normal 3.80-5.00 [facility] Comment on above: Performed By: #### L [id number] ####[facility] ([facility])[address] [place] [address] WBC (Bld) [#/Vol] 10.62 10*3/uL High 4.00-10.60 [facility] Comment on above: Performed By: #### L [id number] ####[facility] ([facility])[address] [place] [address] COMPREHENSIVE METABOLIC PANE Alex 03-15-2025 Albumin [Mass/Vol] 3.6 g/dL Normal 3.5-5.7 [facility] Comment on above: Performed By: #### L [id number] ####[facility] ([facility])[address] [place] [address] ALP [Catalytic activity/Vol] 37 U/L Normal 34-104 [facility] Comment on above: Performed By: #### L [id number] ####[facility] ([facility])[address] [place] [address] ALT [Catalytic activity/Vol] 13 U/L Normal 7-52 [facility] Comment on above: Performed By: #### L [id number] ####[facility] ([facility])[address] [place] [address] Anion gap [Moles/Vol] 11 mmol/L Normal 7-20 [facility] Comment on above: Performed By: #### L [id number] ####[facility] ([facility])[address] [place] [address] AST [Catalytic activity/Vol] 25 U/L Normal 13-39 [facility] Comment on above: Performed By: #### L [id number] ####[facility] ([facility])[address] [place] [address] Bilirubin [Mass/Vol] 0.7 mg/dL Normal 0.3-1.0 [facility] Comment on above: Performed By: #### L [id number] ####[facility] ([facility])[address] [place] [address] Calcium [Mass/Vol] 8.9 mg/dL Normal 8.6-10.3 [facility] Comment on above: Performed By: #### L [id number] ####[facility] ([facility])[address] [place] [address] Chloride [Moles/Vol] 106 mmol/L Normal 98-107 [facility] Comment on above: Performed By: #### L [id number] ####[facility] ([facility])[address] [place] [address] CO2 [Moles/Vol] 30 mmol/L Normal 21-31 [facility] Comment on above: Performed By: #### L [id number] ####[facility] ([facility])[address] [place] [address] Creatinine [Mass/Vol] 0.88 mg/dL Normal 0.60-1.20 [facility] Comment on above: Performed By: #### L [id number] ####[facility] ([facility])[address] [place] [address] GLOMERULAR FILTRATION RATE ML/MIN/1.73 SQ M.PREDICTED 67.2 mL/min/1.73m*2 Normal >60.0 [facility] Comment on above: Result Comment: [facility]???s estimated glomerular filtration rate (eGFR) will no [...] individuals. Performed By: #### L [id number] ####[facility] (AKER)[address] [place] [address] Glucose [Mass/Vol] 127 mg/dL High 70-100 [facility] Comment on above: Performed By: #### L [id number] ####[facility] ([facility])[address] [place] [address] Potassium [Moles/Vol] 3.8 mmol/L Normal 3.5-5.1 [facility] Comment on above: Performed By: #### L [id number] ####[facility] ([facility])[address] [place] [address] Protein [Mass/Vol] 5.7 g/dL Low 6.0-8.3 [facility] Comment on above: Performed By: #### L [id number] ####[facility] ([facility])[address] [place] [address] Sodium [Moles/Vol] 143 mmol/L Normal 136-145 [facility] Comment on above: Performed By: #### L [id number] ####[facility] ([facility])[address] [place] [address] Urea nitrogen [Mass/Vol] 34 mg/dL High 7-25 [facility] Comment on above: Performed By: #### L [id number] ####[facility] ([facility])[address] [place] [address] UREA NITROGEN/CREATININE (MASS RATIO) IN SER/PLAS 38.6 Normal [facility] Comment on above: Performed By: #### L [id number] ####[facility] ([facility])[address] [place] [address] HIGH SENSITIVITY TROPONIN Io n 03-15-2025 HS TROPONIN I (NG/L) 3616 ng/L Critically high <15 [facility] Comment on above: Performed By: #### L [id number] ####[facility] ([facility])[address] [place] [address] MAGNESIUMon 03-15-2025 Magnesium [Mass/Vol] 2.4 mg/dL Normal 1.9-2.7 [facility] Comment on above: Performed By: #### L [id number] ####[facility] ([facility])[address] [place] [address] NURSNOTEon 03-15-2025 NURSNOTE [facility] NURSNOTE Normal [facility] NURSNOTE Normal [facility] PHOSPHORUSon 03-15-2025 Magnesium [Mass/Vol] 3.1 mg/dL Normal 2.5-5.0 [facility] Comment on above: Performed By: #### L [id number] ####[facility] ([facility])[address] [place] [address] T4, FREEon 03-15-2025 THYROXINE (T4) FREE (NG/DL) IN SER/PLAS 0.86 ng/dL Normal 0.71-1.85 [facility] Comment on above: Performed By: #### L [id number] ####[facility] ([facility])[address] [place] [address] TSH3 REFLEX TO FT4on 025 THYROTROPIN (MIU/L) IN SER/PLAS BY DETECTION LIMIT <= 0.05 MIU/L 0.34 mIU/L Normal 0.34-5.60 [facility] Comment on above: Performed By: #### L [id number] ####[facility] ([facility])[address] [place] [address] 30on 03-14-2025 30 Normal [facility] ANESon 03-14-2025 ANES Normal [facility] ANTI-XA (HEPARIN LEVEL)on HEPARIN UNFRACTIONATED (U/ML) IN PPP BY CHROMOGENIC METHOD 0.57 IU/mL Normal 0.3-0.7 [facility] Comment on above: Order Comment: Check anti-Xa level every 6 hours while on heparin infusion, or per protocol. Result Comment: Kasey roxaban and Apixaban will interfere with the anti Xa assay used to monitor UFH and LMWH. Performed By: #### L [id number] ####[facility] ([facility])[address] [place] [address] HEPARIN UNFRACTIONATED (U/ML) IN PPP BY CHROMOGENIC METHOD 0.65 IU/mL Normal 0.3-0.7 [facility] Comment on above: Order Comment: Check anti-Xa level every 6 hours while on heparin infusion, or per protocol. Result Comment: Kasey roxaban and Apixaban will interfere with the anti Xa assay used to monitor UFH and LMWH. Performed By: #### L [id number] ####[facility] ([facility])[address] [place] [address] CBC WITH AUTO DIFFERENTIALon 03-14-2025 Basophils (Bld) [#/Vol] 0.01 10*3/uL Normal 0.00-0.20 [facility] Comment on above: Performed By: #### L [id number] ####[facility] ([facility])[address] [place] [address] Basophils/100 WBC (Bld) 0.1 % Normal 0.0-1.0 [facility] Comment on above: Performed By: #### L [id number] ####[facility] ([facility])[address] [place] [address] Eosinophils (Bld) [#/Vol] 0.00 10*3/uL Normal 0.00-0.50 [facility] Comment on above: Performed By: #### L [id number] ####[facility] ([facility])[address] [place] [address] Eosinophils/100 WBC (Bld) 0.0 % Normal 0.0-6.0 [facility] Comment on above: Performed By: #### L [id number] ####[facility] ([facility])[address] [place] [address] Erythrocyte distribution width (RBC) [Ratio] 14.0 % Normal 11.5-15.0 [facility] Comment on above: Performed By: #### L [id number] ####[facility] ([facility])[address] [place] [address] ERYTHROCYTE MEAN CORPUSCULAR HEMOGLOBIN CONCENTRATION (G/DL) BY AUTOMATED 32.3 g/dL Normal 32.0-35.0 [facility] Comment on above: Performed By: #### L [id number] ####[facility] ([facility])[address] [place] [address] Hematocrit (Bld) [Volume fraction] 36.2 % Normal 36.0-45.0 [facility] Comment on above: Performed By: #### L [id number] ####[facility] ([facility])[address] [place] [address] Hemoglobin (Bld) [Mass/Vol] 11.7 g/dL Low 12.0-15.0 [facility] Comment on above: Performed By: #### L [id number] ####[facility] ([facility])[address] [place] [address] Immature granulocytes (Bld) [#/Vol] 0.07 10*3/uL Normal 0.00-0.20 [facility] Comment on above: Performed By: #### L [id number] ####[facility] ([facility])[address] [place] [address] Immature granulocytes/100 WBC (Bld) 0.5 % Normal 0.0-1.0 [facility] Comment on above: Performed By: #### L [id number] ####[facility] ([facility])[address] [place] [address] Lymphocytes (Bld) [#/Vol] 0.43 10*3/uL Low 1.20-4.00 [facility] Comment on above: Performed By: #### L [id number] ####[facility] ([facility])[address] [place] [address] Lymphocytes/100 WBC (Bld) 3.3 % Low 20.0-45.0 [facility] Comment on above: Performed By: #### L [id number] ####[facility] ([facility])[address] [place] [address] MCH (RBC) [Entitic mass] 30.7 pg Normal 27.0-33.0 [facility] Comment on above: Performed By: #### L [id number] ####[facility] ([facility])[address] [place] [address] MCV (RBC) [Entitic vol] 95.0 fL Normal 82.0-98.0 [facility] Comment on above: Performed By: #### L [id number] ####[facility] ([facility])[address] [place] [address] Monocytes (Bld) [#/Vol] 0.51 10*3/uL Normal 0.10-1.00 [facility] Comment on above: Performed By: #### L [id number] ####[facility] ([facility])[address] [place] [address] Monocytes/100 WBC (Bld) 3.9 % Low 5.0-12.0 [facility] Comment on above: Performed By: #### L [id number] ####[facility] ([facility])[address] [place] [address] Neutrophils (Bld) [#/Vol] 12.06 10*3/uL High 1.60-7.60 [facility] Comment on above: Performed By: #### L [id number] ####[facility] ([facility])[address] [place] [address] Neutrophils/100 WBC (Bld) 92.2 % High 40.0-72.0 [facility] Comment on above: Performed By: #### L [id number] ####[facility] ([facility])[address] [place] [address] NRBC (PER 100 WBCS) BY AUTOMATED COUNT 0.0 % Normal 0 [facility] Comment on above: Performed By: #### L [id number] ####[facility] ([facility])[address] [place] [address] PLATELETS (10*3/UL) IN BLOOD AUTOMATED COUNT 165 10*3/uL Normal 150-400 [facility] Comment on above: Performed By: #### L [id number] ####[facility] ([facility])[address] [place] [address] RBC (Bld) [#/Vol] 3.81 10*6/uL Normal 3.80-5.00 [facility] Comment on above: Performed By: #### L [id number] ####[facility] ([facility])[address] [place] [address] WBC (Bld) [#/Vol] 13.08 10*3/uL High 4.00-10.60 [facility] Comment on above: Performed By: #### L [id number] ####[facility] ([facility])[address] [place] [address] COMPREHENSIVE METABOLIC PANE Alex 03-14-2025 Albumin [Mass/Vol] 3.6 g/dL Normal 3.5-5.7 [facility] Comment on above: Performed By: #### L [id number] ####[facility] ([facility])[address] [place] [address] ALP [Catalytic activity/Vol] 39 U/L Normal 34-104 [facility] Comment on above: Performed By: #### L [id number] ####[facility] ([facility])[address] [place] [address] ALT [Catalytic activity/Vol] 13 U/L Normal 7-52 [facility] Comment on above: Performed By: #### L [id number] ####[facility] ([facility])[address] [place] [address] Anion gap [Moles/Vol] 12 mmol/L Normal 7-20 [facility] Comment on above: Performed By: #### L [id number] ####[facility] ([facility])[address] [place] [address] AST [Catalytic activity/Vol] 30 U/L Normal 13-39 [facility] Comment on above: Performed By: #### L [id number] ####[facility] ([facility])[address] [place] [address] Bilirubin [Mass/Vol] 0.4 mg/dL Normal 0.3-1.0 [facility] Comment on above: Performed By: #### L [id number] ####[facility] ([facility])[address] [place] [address] Calcium [Mass/Vol] 8.8 mg/dL Normal 8.6-10.3 [facility] Comment on above: Performed By: #### L [id number] ####[facility] ([facility])[address] [place] [address] Chloride [Moles/Vol] 109 mmol/L High 98-107 [facility] Comment on above: Performed By: #### L [id number] ####[facility] ([facility])[address] [place] [address] CO2 [Moles/Vol] 26 mmol/L Normal 21-31 [facility] Comment on above: Performed By: #### L [id number] ####[facility] ([facility])[address] [place] [address] Creatinine [Mass/Vol] 1.03 mg/dL Normal 0.60-1.20 [facility] Comment on above: Performed By: #### L [id number] ####[facility] ([facility])[address] [place] [address] GLOMERULAR FILTRATION RATE ML/MIN/1.73 SQ M.PREDICTED 55.7 mL/min/1.73m*2 Low >60.0 [facility] Comment on above: Result Comment: [facility]???s estimated glomerular filtration rate (eGFR) will no [...] individuals. Performed By: #### L [id number] ####[facility] ([facility])[address] [place] [address] Glucose [Mass/Vol] 132 mg/dL High 70-100 [facility] Comment on above: Performed By: #### L [id number] ####[facility] ([facility])[address] [place] [address] Potassium [Moles/Vol] 3.7 mmol/L Normal 3.5-5.1 [facility] Comment on above: Performed By: #### L [id number] ####[facility] ([facility])[address] [place] [address] Protein [Mass/Vol] 5.6 g/dL Low 6.0-8.3 [facility] Comment on above: Performed By: #### L [id number] ####[facility] ([facility])[address] [place] [address] Sodium [Moles/Vol] 143 mmol/L Normal 136-145 [facility] Comment on above: Performed By: #### L [id number] ####[facility] ([facility])[address] [place] [address] Urea nitrogen [Mass/Vol] 35 mg/dL High 7-25 [facility] Comment on above: Performed By: #### L [id number] ####[facility] ([facility])[address] [place] [address] UREA NITROGEN/CREATININE (MASS RATIO) IN SER/PLAS 34.0 Normal [facility] Comment on above: Performed By: #### L [id number] ####[facility] ([facility])[address] [place] [address] CONSULTon 03-14-2025 CONSULT Normal [facility] HPon 03-14-2025 HP H&P reviewed. The adam willis was examined and there are no changes to the H&P. Normal [facility] LACTIC ACID WITH 4 HOUR REFL EXon 03-14-2025 LACTATE (MMOL/L) IN SER/PLAS 1.9 mmol/L Normal 0.5-2.2 [facility] Comment on above: Performed By: #### L [id number] ####[facility] ([facility])[address] [place] [address] LACTATE (MMOL/L) IN SER/PLAS 1.0 mmol/L Normal 0.5-2.2 [facility] Comment on above: Performed By: #### L [id number] ####[facility] ([facility])[address] [place] [address] LACTATE (MMOL/L) IN SER/PLAS 1.1 mmol/L Normal 0.5-2.2 [facility] Comment on above: Performed By: #### L [id number] ####[facility] ([facility])[address] [place] [address] LIPID PANELon 03-14-2025 CHOL/HDL 4.1 mg/dL Normal [facility] Comment on above: Performed By: #### L [id number] ####[facility] ([facility])[address] [place] [address] Cholesterol [Mass/Vol] 173 mg/dL Normal 120-200 [facility] Comment on above: Performed By: #### L [id number] ####[facility] ([facility])[address] [place] [address] Magnesium [Mass/Vol] 153 mg/dL High <150 [facility] Comment on above: Result Comment: TRIG LYCERIDE REFERENCE RANGE:20 YEARS AND OLDER CARDIOVASCULAR RISKLESS THAN 150 mg/dL LOW [id number] TO 199 mg/dL BORDERLINE [id number] mg/dL AND GREATER HIGH RISK Performed By: #### L [id number] ####[facility] ([facility])[address] [place] [address] Magnesium [Mass/Vol] 100 mg/dL Normal 0-160 [facility] Comment on above: Performed By: #### L [id number] ####[facility] ([facility])[address] [place] [address] Magnesium [Mass/Vol] 42 mg/dL Normal 23-92 [facility] Comment on above: Performed By: #### L [id number] ####[facility] ([facility])[address] [place] [address] NON HDL CHOL. (LDL+VLDL) 131 [facility] Comment on above: Performed By: #### L [id number] ####[facility] ([facility])[address] [place] [address] TOTAL VLDL-C 31 mg/dL Normal 0-40 [facility] Comment on above: Performed By: #### L [id number] ####[facility] ([facility])[address] [place] [address] MAGNESIUMon 03-14-2025 Magnesium [Mass/Vol] 2.5 mg/dL Normal 1.9-2.7 [facility] Comment on above: Performed By: #### L [id number] ####[facility] ([facility])[address] [place] [address] NURSNOTEon 03-14-2025 NURSNOTE Normal [facility] NURSNOTE Normal [facility] PHOSPHORUSon 03-14-2025 Magnesium [Mass/Vol] 3.2 mg/dL Normal 2.5-5.0 [facility] Comment on above: Performed By: #### L [id number] ####[facility] ([facility])[address] [facility] [place] [address] 30on 03-13-2025 30 Normal [facility] ANTI-XA (HEPARIN LEVEL)on HEPARIN UNFRACTIONATED (U/ML) IN PPP BY CHROMOGENIC METHOD 0.77 IU/mL High 0.3-0.7 [facility] Comment on above: Order Comment: Check anti-Xa level every 6 hours while on heparin infusion, or per protocol. Result Comment: Hargill roxaban and Apixaban will interfere with the anti Xa assay used to monitor UFH and LMWH. Performed By: #### L [id number] ####[facility] ([facility])[address] [place] [address] APTTon 03-13-2025 ACTIVATED PARTIAL THROMBOPLASTIN TIME IN PPP BY COAGULATION ASSAY 126.5 Seconds High 25.0-35.0 [facility] Comment on above: Order Comment: Basel ine aPTT before initiating heparin infusion. Result Comment: Clin ical significance of the APTT is questionable in the presence of heparin. Performed By: #### L [id number] ####[facility] ([facility])[address] [place] [address] CBC WITH AUTO DIFFERENTIALon 03-13-2025 Basophils (Bld) [#/Vol] 0.03 10*3/uL Normal 0.00-0.20 [facility] Comment on above: Performed By: #### L [id number] ####[facility] ([facility])[address] [place] [address] Basophils/100 WBC (Bld) 0.1 % Normal 0.0-1.0 [facility] Comment on above: Performed By: #### L [id number] ####[facility] ([facility])[address] [place] [address] Eosinophils (Bld) [#/Vol] 0.00 10*3/uL Normal 0.00-0.50 [facility] Comment on above: Performed By: #### L [id number] ####[facility] ([facility])[address] [place] [address] Eosinophils/100 WBC (Bld) 0.0 % Normal 0.0-6.0 [facility] Comment on above: Performed By: #### L [id number] ####[facility] ([facility])[address] [place] [address] Erythrocyte distribution width (RBC) [Ratio] 13.9 % Normal 11.5-15.0 [facility] Comment on above: Performed By: #### L [id number] ####[facility] ([facility])[address] [place] [address] ERYTHROCYTE MEAN CORPUSCULAR HEMOGLOBIN CONCENTRATION (G/DL) BY AUTOMATED 32.7 g/dL Normal 32.0-35.0 [facility] Comment on above: Performed By: #### L [id number] ####[facility] ([facility])[address] [place] [address] Hematocrit (Bld) [Volume fraction] 38.8 % Normal 36.0-45.0 [facility] Comment on above: Performed By: #### L [id number] ####[facility] ([facility])[address] [place] [address] Hemoglobin (Bld) [Mass/Vol] 12.7 g/dL Normal 12.0-15.0 [facility] Comment on above: Performed By: #### L [id number] ####[facility] ([facility])[address] [place] [address] Immature granulocytes (Bld) [#/Vol] 0.16 10*3/uL Normal 0.00-0.20 [facility] Comment on above: Performed By: #### L [id number] ####[facility] ([facility])[address] [place] [address] Immature granulocytes/100 WBC (Bld) 0.8 % Normal 0.0-1.0 [facility] Comment on above: Performed By: #### L [id number] ####[facility] ([facility])[address] [place] [address] Lymphocytes (Bld) [#/Vol] 0.77 10*3/uL Low 1.20-4.00 [facility] Comment on above: Performed By: #### L [id number] ####[facility] ([facility])[address] [place] [address] Lymphocytes/100 WBC (Bld) 3.7 % Low 20.0-45.0 [facility] Comment on above: Performed By: #### L [id number] ####[facility] ([facility])[address] [place] [address] MCH (RBC) [Entitic mass] 30.9 pg Normal 27.0-33.0 [facility] Comment on above: Performed By: #### L [id number] ####[facility] ([facility])[address] [place] [address] MCV (RBC) [Entitic vol] 94.4 fL Normal 82.0-98.0 [facility] Comment on above: Performed By: #### L [id number] ####[facility] ([facility])[address] [place] [address] Monocytes (Bld) [#/Vol] 0.57 10*3/uL Normal 0.10-1.00 [facility] Comment on above: Performed By: #### L [id number] ####[facility] ([facility])[address] [place] [address] Monocytes/100 WBC (Bld) 2.8 % Low 5.0-12.0 [facility] Comment on above: Performed By: #### L [id number] ####[facility] ([facility])[address] [place] [address] Neutrophils (Bld) [#/Vol] 19.06 10*3/uL High 1.60-7.60 [facility] Comment on above: Performed By: #### L [id number] ####[facility] ([facility])[address] [place] [address] Neutrophils/100 WBC (Bld) 92.6 % High 40.0-72.0 [facility] Comment on above: Performed By: #### L [id number] ####[facility] ([facility])[address] [place] [address] NRBC (PER 100 WBCS) BY AUTOMATED COUNT 0.0 % Normal 0 [facility] Comment on above: Performed By: #### L [id number] ####[facility] ([facility])[address] [place] [address] PLATELETS (10*3/UL) IN BLOOD AUTOMATED COUNT 203 10*3/uL Normal 150-400 [facility] Comment on above: Performed By: #### L [id number] ####[facility] ([facility])[address] [place] [address] RBC (Bld) [#/Vol] 4.11 10*6/uL Normal 3.80-5.00 [facility] Comment on above: Performed By: #### L [id number] ####[facility] ([facility])[address] [place] [address] WBC (Bld) [#/Vol] 20.59 10*3/uL High 4.00-10.60 [facility] Comment on above: Performed By: #### L [id number] ####[facility] ([facility])[address] [place] [address] COMPREHENSIVE METABOLIC PANE Alex 03-13-2025 Albumin [Mass/Vol] 3.4 g/dL Low 3.5-5.7 [facility] Comment on above: Performed By: #### L [id number] ####[facility] ([facility])[address] [place] [address] ALP [Catalytic activity/Vol] 38 U/L Normal 34-104 [facility] Comment on above: Performed By: #### L [id number] ####[facility] ([facility])[address] [place] [address] ALT [Catalytic activity/Vol] 15 U/L Normal 7-52 [facility] Comment on above: Performed By: #### L [id number] ####[facility] ([facility])[address] [place] [address] Anion gap [Moles/Vol] 13 mmol/L Normal 7-20 [facility] Comment on above: Performed By: #### L [id number] ####[facility] ([facility])[address] [place] [address] AST [Catalytic activity/Vol] 39 U/L Normal 13-39 [facility] Comment on above: Performed By: #### L [id number] ####[facility] ([facility])[address] [place] [address] Bilirubin [Mass/Vol] 0.8 mg/dL Normal 0.3-1.0 [facility] Comment on above: Performed By: #### L [id number] ####[facility] ([facility])[address] [place] [address] Calcium [Mass/Vol] 8.7 mg/dL Normal 8.6-10.3 [facility] Comment on above: Performed By: #### L [id number] ####[facility] ([facility])[address] [place] [address] Chloride [Moles/Vol] 106 mmol/L Normal 98-107 [facility] Comment on above: Performed By: #### L [id number] ####[facility] ([facility])[address] [place] [address] CO2 [Moles/Vol] 22 mmol/L Normal 21-31 [facility] Comment on above: Performed By: #### L [id number] ####[facility] ([facility])[address] [place] [address] Creatinine [Mass/Vol] 1.36 mg/dL High 0.60-1.20 [facility] Comment on above: Performed By: #### L [id number] ####[facility] ([facility])[address] [place] [address] GLOMERULAR FILTRATION RATE ML/MIN/1.73 SQ M.PREDICTED 39.9 mL/min/1.73m*2 Low >60.0 [facility] Comment on above: Result Comment: [facility]???s estimated glomerular filtration rate (eGFR) will no [...] individuals. Performed By: #### L [id number] ####[facility] ([facility])[address] [place] [address] Glucose [Mass/Vol] 149 mg/dL High 70-100 [facility] Comment on above: Performed By: #### L [id number] ####[facility] ([facility])[address] [place] [address] Potassium [Moles/Vol] 4.0 mmol/L Normal 3.5-5.1 [facility] Comment on above: Performed By: #### L [id number] ####[facility] ([facility])[address] [place] [address] Protein [Mass/Vol] 5.4 g/dL Low 6.0-8.3 [facility] Comment on above: Performed By: #### L [id number] ####[facility] ([facility])[address] [place] [address] Sodium [Moles/Vol] 137 mmol/L Normal 136-145 [facility] Comment on above: Performed By: #### L [id number] ####[facility] ([facility])[address] [place] [address] Urea nitrogen [Mass/Vol] 36 mg/dL High 7-25 [facility] Comment on above: Performed By: #### L [id number] ####[facility] ([facility])[address] [place] [address] UREA NITROGEN/CREATININE (MASS RATIO) IN SER/PLAS 26.5 [facility] Comment on above: Performed By: #### L [id number] ####[facility] ([facility])[address] [place] [address] CONSULTon 03-13-2025 CONSULT [facility] HIGH SENSITIVITY TROPONIN Io n 03-13-2025 HS TROPONIN I (NG/L) 5772 ng/L Critically high <15 [facility] Comment on above: Performed By: #### L [id number] ####[facility] ([facility])[address] [place] [address] HPon 03-13-2025 HP Normal [facility] LACTIC ACID WITH 4 HOUR REFL EXon 03-13-2025 LACTATE (MMOL/L) IN SER/PLAS 1.5 mmol/L Normal 0.5-2.2 [facility] Comment on above: Performed By: #### L [id number] ####[facility] ([facility])[address] [place] [address] LACTATE (MMOL/L) IN SER/PLAS 1.3 mmol/L Normal 0.5-2.2 [facility] Comment on above: Performed By: #### L [id number] ####[facility] ([facility])[address] [place] [address] LACTATE (MMOL/L) IN SER/PLAS 1.6 mmol/L Normal 0.5-2.2 [facility] Comment on above: Performed By: #### L [id number] ####[facility] ([facility])[address] [place] [address] LACTATE (MMOL/L) IN SER/PLAS 1.5 mmol/L Normal 0.5-2.2 [facility] Comment on above: Performed By: #### L [id number] ####[facility] ([facility])[address] [place] [address] LACTATE (MMOL/L) IN SER/PLAS 1.6 mmol/L Normal 0.5-2.2 [facility] Comment on above: Performed By: #### L [id number] ####[facility] ([facility])[address] [place] [address] MAGNESIUMon 03-13-2025 Magnesium [Mass/Vol] 2.5 mg/dL Normal 1.9-2.7 [facility] Comment on above: Performed By: #### L [id number] ####[facility] ([facility])[address] [place] [address] PHOSPHORUSon 03-13-2025 Magnesium [Mass/Vol] 4.7 mg/dL Normal 2.5-5.0 [facility] Comment on above: Performed By: #### L [id number] ####[facility] ([facility])[address] [place] [address] POCT GLUCOSE METER UNSOLICIT ED RESULTSon 03-13-2025 Glucose [Mass/Vol] 147 mg/dL High 70-105 [facility] Comment on above: Order Comment: Waive d Testing in the ED is performed under the ED CLIA certificate #[id number]. Result Comment: [email or web address] Performed By: #### L [id number] ####[facility] ([facility])[address] [place] [address] 30on 03-12-2025 30 Normal [facility] B-TYPE NATRIURETIC PEPTIDEon 03-12-2025 Natriuretic peptide B (Bld) [Mass/Vol] 662 pg/mL High 0-100 [facility] Comment on above: Performed By: #### L [id number] ####[facility] ([facility])[address] [place] [address] BASIC METABOLIC PANELon 02-27 Anion gap [Moles/Vol] 16 mmol/L Normal 7-20 [facility] Comment on above: Performed By: #### L [id number] ####[facility] ([facility])[address] [place] [address] Calcium [Mass/Vol] 9.0 mg/dL Normal 8.6-10.3 [facility] Comment on above: Performed By: #### L [id number] ####[facility] ([facility])[address] [place] [address] Chloride [Moles/Vol] 106 mmol/L Normal 98-107 [facility] Comment on above: Performed By: #### L [id number] ####[facility] ([facility])[address] [place] [address] CO2 [Moles/Vol] 22 mmol/L Normal 21-31 Upper [facility] Comment on above: Performed By: #### L [id number] ####[facility] ([facility])[address] [place] [address] Creatinine [Mass/Vol] 1.42 mg/dL High 0.60-1.20 [facility] Comment on above: Performed By: #### L [id number] ####[facility] ([facility])[address] [place] [address] GLOMERULAR FILTRATION RATE ML/MIN/1.73 SQ M.PREDICTED 37.9 mL/min/1.73m*2 Low >60.0 [facility] Comment on above: Result Comment: The [facility]???s estimated glomerular filtration rate (eGFR) will no [...] individuals. Performed By: #### L [id number] ####[facility] ([facility])[address] [place] [address] Glucose [Mass/Vol] 149 mg/dL High 70-100 [facility] Comment on above: Performed By: #### L [id number] ####[facility] ([facility])[address] [place] [address] Potassium [Moles/Vol] 4.8 mmol/L Normal 3.5-5.1 [facility] Comment on above: Performed By: #### L [id number] ####[facility] ([facility])[address] [place] [address] Sodium [Moles/Vol] 139 mmol/L Normal 136-145 [facility] Comment on above: Performed By: #### L [id number] ####[facility] ([facility])[address] [facility] [place] [address] Urea nitrogen [Mass/Vol] 30 mg/dL High 05-23 [facility] Comment on above: Performed By: #### L [id number] ####[facility] ([facility])[address] [place] [address] UREA NITROGEN/CREATININE (MASS RATIO) IN SER/PLAS 21.1 [facility] Comment on above: Performed By: #### L [id number] ####[facility] ([facility])[address] [place] [address] BLOOD CULTUREon 03-12-2025 Bacteria identified Cx Nom (Bld) No growth at 5 days [place] Comment on above: Order Comment: From a different site than #1. Performed By: #### L [id number] ####[facility] ([facility])[address] [facility] [place] [address] BODY FLUID CELL DIFFERENTIAL on 03-12-2025 BASOPHILS TOTAL PER COUNTED LEUKOCYTES IN BODY FLUID BY MANUAL COUNT [facility] Comment on above: Order Comment: Diffe rential performed on cytospin Performed By: #### L [id number] ####[facility] ([facility])[address] [facility] [place] [address] CELLS COUNTED TOTAL (#) IN BODY FLUID 100 Normal [facility] Comment on above: Order Comment: Diffe rential performed on cytospin Performed By: #### L [id number] ####[facility] ([facility])[address] [facility] [place] [address] EOSINOPHILS TOTAL PER COUNTED LEUKOCYTES IN BODY FLUID BY MANUAL COUNT [facility] Comment on above: Order Comment: Diffe rential performed on cytospin Performed By: #### L [id number] ####[facility] ([facility])[address] [place] [address] LYMPHOCYTES TOTAL PER COUNTED LEUKOCYTES IN BODY FLUID BY MANUAL COUNT 1 Normal [facility] Comment on above: Order Comment: Diffe rential performed on cytospin Performed By: #### L [id number] ####[facility] ([facility])[address] [facility] [place] [address] MESOTHELIAL CELLS TOTAL PER COUNTED LEUKOCYTES IN BODY FLUID BY MANUAL COUN Normal [facility] Comment on above: Order Comment: Diffe rential performed on cytospin Performed By: #### L [id number] ####[facility] ([facility])[address] [facility] [place] [address] MONOCYTES+MACROPHAGES TOTAL PER COUNTED LEUKOCYTES IN BODY FLUID BY MANUAL 9 Normal [facility] Comment on above: Order Comment: Diffe rential performed on cytospin Performed By: #### L [id number] ####[facility] ([facility])[address] [facility] [place] [address] NEUTROPHILS TOTAL PER COUNTED LEUKOCYTES IN BODY FLUID BY MANUAL COUNT 90 Normal [facility] Comment on above: Order Comment: Diffe rential performed on cytospin Performed By: #### L [id number] ####[facility] ([facility])[address] [facility] [place] [address] OTHER CELLS BODY FLUID (MANUAL) Normal [facility] Comment on above: Order Comment: Diffe rential performed on cytospin Performed By: #### L [id number] ####[facility] ([facility])[address] [place] [address] CBC WITH AUTO DIFFERENTIALon 03-12-2025 Basophils (Bld) [#/Vol] 0.02 10*3/uL Normal 0.00-0.20 [facility] Comment on above: Performed By: #### L [id number] ####[facility] ([facility])[address] [facility] [place] [address] Basophils/100 WBC (Bld) 0.2 % Normal 0.0-1.0 [facility] Comment on above: Performed By: #### L [id number] ####[facility] ([facility])[address] [facility] [place] [address] Eosinophils (Bld) [#/Vol] 0.00 10*3/uL Normal 0.00-0.50 [facility] Comment on above: Performed By: #### L [id number] ####[facility] ([facility])[address] [place] [address] Eosinophils/100 WBC (Bld) 0.0 % Normal 0.0-6.0 [facility] Comment on above: Performed By: #### L [id number] ####[facility] ([facility])[address] [place] [address] Erythrocyte distribution width (RBC) [Ratio] 14.0 % Normal 11.5-15.0 [facility] Comment on above: Performed By: #### L [id number] ####[facility] ([facility])[address] [place] [address] ERYTHROCYTE MEAN CORPUSCULAR HEMOGLOBIN CONCENTRATION (G/DL) BY AUTOMATED 33.1 g/dL Normal 32.0-35.0 [facility] Comment on above: Performed By: #### L [id number] ####[facility] ([facility])[address] [place] [address] Hematocrit (Bld) [Volume fraction] 35.6 % Low 36.0-45.0 [facility] Comment on above: Performed By: #### L [id number] ####[facility] ([facility])[address] [place] [address] Hemoglobin (Bld) [Mass/Vol] 11.8 g/dL Low 12.0-15.0 [facility] Comment on above: Performed By: #### L [id number] ####[facility] ([facility])[address] [place] [address] Immature granulocytes (Bld) [#/Vol] 0.05 10*3/uL Normal 0.00-0.20 [facility] Comment on above: Performed By: #### L [id number] ####[facility] ([facility])[address] [place] [address] Immature granulocytes/100 WBC (Bld) 0.4 % Normal 0.0-1.0 [facility] Comment on above: Performed By: #### L [id number] ####[facility] ([facility])[address] [place] [address] Lymphocytes (Bld) [#/Vol] 0.61 10*3/uL Low 1.20-4.00 [facility] Comment on above: Performed By: #### L [id number] ####[facility] ([facility])[address] [place] [address] Lymphocytes/100 WBC (Bld) 4.6 % Low 20.0-45.0 [facility] Comment on above: Performed By: #### L [id number] ####[facility] ([facility])[address] [place] [address] MCH (RBC) [Entitic mass] 31.1 pg Normal 27.0-33.0 [facility] Comment on above: Performed By: #### L [id number] ####[facility] ([facility]ER)[address] [place] [address] MCV (RBC) [Entitic vol] 93.7 fL Normal 82.0-98.0 [facility] Comment on above: Performed By: #### L [id number] ####[facility] ([facility])[address] [place], [place] [address] Monocytes (Bld) [#/Vol] 0.58 10*3/uL Normal 0.10-1.00 [facility] Comment on above: Performed By: #### L [id number] ####[facility] ([facility])[address] [place] [address] Monocytes/100 WBC (Bld) 4.4 % Low 5.0-12.0 [facility] Comment on above: Performed By: #### L [id number] ####[facility] ([facility])[address] [place] [address] Neutrophils (Bld) [#/Vol] 12.06 10*3/uL High 1.60-7.60 [facility] Comment on above: Performed By: #### L [id number] ####[facility] ([facility])[address] [place] [address] Neutrophils/100 WBC (Bld) 90.4 % High 40.0-72.0 [facility] Comment on above: Performed By: #### L [id number] ####[facility] ([facility])[address] [place] [address] NRBC (PER 100 WBCS) BY AUTOMATED COUNT 0.0 % Normal 0 [facility] Comment on above: Performed By: #### L [id number] ####[facility] ([facility])[address] [place] [address] PLATELETS (10*3/UL) IN BLOOD AUTOMATED COUNT 165 10*3/uL Normal 150-400 [facility] Comment on above: Performed By: #### L [id number] ####[facility] ([facility])[address] [place] [address] RBC (Bld) [#/Vol] 3.80 10*6/uL Normal 3.80-5.00 [facility] Comment on above: Performed By: #### L [id number] ####[facility] ([facility]ER)[address] [place], [place] [address] WBC (Bld) [#/Vol] 13.32 10*3/uL High 4.00-10.60 [facility] Comment on above: Performed By: #### L [id number] ####[facility] ([facility])[address] [place] [address] Basophils (Bld) [#/Vol] 0.06 10*3/uL Normal 0.00-0.20 [facility] Comment on above: Performed By: #### L [id number] ####[facility] ([facility])[address] [place], [place] [address] Basophils/100 WBC (Bld) 0.3 % Normal 0.0-1.0 [facility] Comment on above: Performed By: #### L [id number] ####[facility] ([facility])[address] [place] [address] Eosinophils (Bld) [#/Vol] 0.08 10*3/uL Normal 0.00-0.50 [facility] Comment on above: Performed By: #### L [id number] ####[facility] ([facility])[address] [place] [address] Eosinophils/100 WBC (Bld) 0.4 % Normal 0.0-6.0 [facility] Comment on above: Performed By: #### L [id number] ####[facility] ([facility])[address] [place] [address] Erythrocyte distribution width (RBC) [Ratio] 13.6 % Normal 11.5-15.0 [facility] Comment on above: Performed By: #### L [id number] ####[facility] ([facility])[address] [place] [address] ERYTHROCYTE MEAN CORPUSCULAR HEMOGLOBIN CONCENTRATION (G/DL) BY AUTOMATED 33.0 g/dL Normal 32.0-35.0 [facility] Comment on above: Performed By: #### L [id number] ####[facility] ([facility])[address] [place] [address] Hematocrit (Bld) [Volume fraction] 43.3 % Normal 36.0-45.0 [facility] Comment on above: Performed By: #### L [id number] ####[facility] ([facility])[address] [place] [address] Hemoglobin (Bld) [Mass/Vol] 14.3 g/dL Normal 12.0-15.0 [facility] Comment on above: Performed By: #### L [id number] ####[facility] ([facility])[address] [place] [address] Immature granulocytes (Bld) [#/Vol] 0.11 10*3/uL Normal 0.00-0.20 [facility] Comment on above: Performed By: #### L [id number] ####[facility] ([facility])[address] [place] [address] Immature granulocytes/100 WBC (Bld) 0.5 % Normal 0.0-1.0 [facility] Comment on above: Performed By: #### L [id number] ####[facility] ([facility])[address] [place] [address] Lymphocytes (Bld) [#/Vol] 0.49 10*3/uL Low 1.20-4.00 [facility] Comment on above: Performed By: #### L [id number] ####[facility] ([facility])[address] [place] [address] Lymphocytes/100 WBC (Bld) 2.1 % Low 20.0-45.0 [facility] Comment on above: Performed By: #### L [id number] ####[facility] ([facility])[address] [place] [address] MCH (RBC) [Entitic mass] 31.0 pg Normal 27.0-33.0 [facility] Comment on above: Performed By: #### L [id number] ####[facility] ([facility])[address] [place] [address] MCV (RBC) [Entitic vol] 93.9 fL Normal 82.0-98.0 [facility] Comment on above: Performed By: #### L [id number] ####[facility] ([facility]ER)[address] [place] [address] Monocytes (Bld) [#/Vol] 0.84 10*3/uL Normal 0.10-1.00 [facility] Comment on above: Performed By: #### L [id number] ####[facility] ([facility])[address] [place] [address] Monocytes/100 WBC (Bld) 3.7 % Low 5.0-12.0 [facility] Comment on above: Performed By: #### L [id number] ####[facility] ([facility])[address] [place] [address] Neutrophils (Bld) [#/Vol] 21.23 10*3/uL High 1.60-7.60 [facility] Comment on above: Performed By: #### L [id number] ####[facility] ([facility]ER)[address] [place] [address] Neutrophils/100 WBC (Bld) 93.0 % High 40.0-72.0 [facility] Comment on above: Performed By: #### L [id number] ####[facility] ([facility])[address] [place] [address] NRBC (PER 100 WBCS) BY AUTOMATED COUNT 0.0 % Normal 0 [facility] Comment on above: Performed By: #### L [id number] ####[facility] ([facility])[address] [place] [address] PLATELETS (10*3/UL) IN BLOOD AUTOMATED COUNT 229 10*3/uL Normal 150-400 [facility] Comment on above: Performed By: #### L [id number] ####[facility] ([facility])[address] [place] [address] RBC (Bld) [#/Vol] 4.61 10*6/uL Normal 3.80-5.00 [facility] Comment on above: Performed By: #### L [id number] ####[facility] ([facility])[address] [place] [address] WBC (Bld) [#/Vol] 22.81 10*3/uL High 4.00-10.60 [facility] Comment on above: Performed By: #### L [id number] ####[facility] ([facility])[address] [place] [address] COMPREHENSIVE METABOLIC PANE Alex 03-12-2025 Albumin [Mass/Vol] 3.6 g/dL Normal 3.5-5.7 [facility] Comment on above: Performed By: #### L [id number] ####[facility] ([facility])[address] [place] [address] ALP [Catalytic activity/Vol] 47 U/L Normal 34-104 [facility] Comment on above: Performed By: #### L [id number] ####[facility] ([facility])[address] [place] [address] ALT [Catalytic activity/Vol] 16 U/L Normal 7-52 [facility] Comment on above: Performed By: #### L [id number] ####[facility] ([facility])[address] [place] [address] Anion gap [Moles/Vol] 17 mmol/L Normal 7-20 [facility] Comment on above: Performed By: #### L [id number] ####[facility] ([facility])[address] [place] [address] AST [Catalytic activity/Vol] 44 U/L High 13-39 [facility] Comment on above: Performed By: #### L [id number] ####[facility] ([facility])[address] [place] [address] Bilirubin [Mass/Vol] 0.6 mg/dL Normal 0.3-1.0 [facility] Comment on above: Performed By: #### L [id number] ####[facility] ([facility])[address] [place] [address] Calcium [Mass/Vol] 9.2 mg/dL Normal 8.6-10.3 [facility] Comment on above: Performed By: #### L [id number] ####[facility] ([facility])[address] [place] [address] Chloride [Moles/Vol] 108 mmol/L High 98-107 [facility] Comment on above: Performed By: #### L [id number] ####[facility] ([facility])[address] [place] [address] CO2 [Moles/Vol] 20 mmol/L Low 21-31 [facility] Comment on above: Performed By: #### L [id number] ####[facility] ([facility])[address] [place] [address] Creatinine [Mass/Vol] 1.31 mg/dL High 0.60-1.20 [facility] Comment on above: Performed By: #### L [id number] ####[facility] ([facility])[address] [place] [address] GLOMERULAR FILTRATION RATE ML/MIN/1.73 SQ M.PREDICTED 41.7 mL/min/1.73m*2 Low >60.0 [facility] Comment on above: Result Comment: [facility]???s estimated glomerular filtration rate (eGFR) will no [...] individuals. Performed By: #### L [id number] ####[facility] ([facility])[address] [place] [address] Glucose [Mass/Vol] 203 mg/dL High 70-100 [facility] Comment on above: Performed By: #### L [id number] ####[facility] ([facility])[address] [place] [address] Potassium [Moles/Vol] 4.7 mmol/L Normal 3.5-5.1 [facility] Comment on above: Performed By: #### L [id number] ####[facility] ([facility])[address] [place] [address] Protein [Mass/Vol] 5.6 g/dL Low 6.0-8.3 [facility] Comment on above: Performed By: #### L [id number] ####[facility] ([facility]AKER)[address] [place] [address] Sodium [Moles/Vol] 140 mmol/L Normal 136-145 [facility] Comment on above: Performed By: #### L [id number] ####[facility] (BE[facility]ER)[address] [place] [address] Urea nitrogen [Mass/Vol] 23 mg/dL Normal 7-25 [facility] Comment on above: Performed By: #### L [id number] ####[facility] ([facility])[address] [place] [address] UREA NITROGEN/CREATININE (MASS RATIO) IN SER/PLAS 17.6 Normal [facility] Comment on above: Performed By: #### L [id number] ####[facility] ([facility]ER)[address] [place] [address] CT CHEST WO IV CONTRASTon CT CHEST WO IV CONTRAST Invalid Interpretation Code [facility] HIGH SENSITIVITY TROPONIN Io n 03-12-2025 HS TROPONIN I (NG/L) 8267 ng/L Critically high <15 [facility] Comment on above: Performed By: #### L [id number] ####[facility] ([facility])[address] [place] [address] HS TROPONIN I (NG/L) 7749 ng/L Critically high <15 [facility] Comment on above: Performed By: #### L [id number] ####[facility] ([facility])[address] [place] [address] HS TROPONIN I (NG/L) 7895 ng/L Critically high <15 [facility] Comment on above: Performed By: #### L [id number] ####[facility] ([facility])[address] [place] [address] HS TROPONIN I (NG/L) [address] ng/L Critically high <15 [facility] Comment on above: Performed By: #### L [id number] ####[facility] ([facility])[address] [place] [address] HPon 03-12-2025 HP Normal [facility] HYPERSENSITIVITY PNEUMONITIS PANEL 1on 03-12-2025 A. PULLULANS ABS Not detected Normal None Detected [facility] Comment on above: Performed By: #### L [id number] ####[facility] ([facility])[address] [place] [address] ASPERGILLUS FUMIGATUS #1 Not detected Normal None Detected [facility] Comment on above: Performed By: #### L [id number] ####[facility] (BEAKER)[address] [place] [address] ASPERGILLUS FUMIGATUS #6 Not detected Normal None Detected [facility] Comment on above: Performed By: #### L [id number] ####[facility] ([facility]ER)[address] [place] [address] M FAENI AB, PRECIPITIN Not detected Normal None Detected [facility] Comment on above: Result Comment: Test ing includes antibodies directed at Aureobasidium pullulans,Aspergillus fumigatus #1, Aspergillus fumigatus #6, Micropolysporafaeni, and [place]ria Serum.Performed By: [facility] [id number] [place], [place] [id number] Director: Ryley Cardenas MD, PhDCLIA Number: [id number] Performed By: #### L [id number] ####[facility] ([facility] [place] [address] PIGEON SERUM ABS Not detected Normal None Detected [facility] Comment on above: Performed By: #### L [id number] ####[facility] (BEAKER)[address] [place] [address] HYPERSENSITIVITY PNEUMONITIS PANEL 2on 03-12-2025 ASPERGILLUS FLAVUS AB, PRECIPITIN Not detected Normal None Detected [facility] Comment on above: Performed By: #### L [id number] ####[facility] ([employer])[address] [place] [address] ASPERGILLUS FUMIGATUS #2 Not detected Normal None Detected [facility] Comment on above: Performed By: #### L [id number] ####[facility] (BEAKER)[address] [place] [address] ASPERGILLUS FUMIGATUS #3 Not detected Normal None Detected [facility] Comment on above: Performed By: #### L [id number] ####[facility] ([employer])[address] [place] [address] S VIRIDIS AB, PRECIPITIN Not detected Normal None Detected [facility] Comment on above: Performed By: #### L [id number] ####[facility] ([employer])[address] [place] [address] T. CANDIDUS AB, PRECIPITIN Not detected Normal None Detected [facility] Comment on above: Result Comment: Test ing includes antibodies directed at Aspergillus flavus,Aspergillus fumigatus #2, Aspergillus fumigatus #3,Saccharomonospora viridis, and Thermoactinomyces candidus.Performed By: [employer] [place], [place] [address]Lwcstiixga Director: Ryley Cardenas MD, PhDCLIA Number: [id number] Performed By: #### L [id number] ####[facility] (BEAKER)[address] [place] [address] IMMUNOGLOBULIN Arturo IMMUNOGLOBIN E <1 Normal 0-100 [facility] Comment on above: Result Comment: Test Performed by [employer] [facility] [place] [address] - Released 03/13/2025 13:36 Performed By: #### L [id number] ####[facility] [id number] [place] [address] LACTIC ACID WITH 4 HOUR REFL EXon 03-12-2025 LACTATE (MMOL/L) IN SER/PLAS 2.0 mmol/L Normal 0.5-2.2 [facility] Comment on above: Performed By: #### L [id number] ####[facility] (BEAKER)[address] [place] [address] LACTATE (MMOL/L) IN SER/PLAS 3.1 mmol/L Critically high 0.5-2.2 [facility] Comment on above: Result Comment: M-WI EVIOUS CRITICAL RESULTPrevious result verified on 03/12/2025 1855 on specimen/case [id number] called with component Lactate blood venous for procedure Lactic acid with 4 hour reflex with value 3.2 mmol/L. Performed By: #### L [id number] ####[facility] ([facility])[address] [place] [address] LACTATE (MMOL/L) IN SER/PLAS 3.2 mmol/L Critically high 0.5-2.2 [facility] Comment on above: Result Comment: M-WI EVIOUS CRITICAL RESULT Performed By: #### L [id number] ####[facility] [facility] [address] LACTATE (MMOL/L) IN SER/PLAS 3.3 mmol/L Critically high 0.5-2.2 [facility] Comment on above: Result Comment: M-WI EVIOUS CRITICAL RESULTPrevious result verified on 03/12/2025 1315 on specimen/case [facility]-[id number] called with component Lactate blood venous for procedure Lactic acid with 4 hour reflex with value 3.4 mmol/L. Performed By: #### L [id number] ####[facility] ([facility])[address] [facility] [place] [address] LACTATE (MMOL/L) IN SER/PLAS 3.4 mmol/L Critically high 0.5-2.2 [facility] Comment on above: Order Comment: Previ ous Critical Result. Performed By: #### L [id number] ####[facility] ([facility])[address] [facility] [address] LACTATE (MMOL/L) IN SER/PLAS 4.4 mmol/L Critically high 0.5-2.2 [facility] Comment on above: Result Comment: Prev ious result verified on 03/12/2025 0819 on specimen/case [facility]-[id number] called with component Lactate blood venous for procedure Lactic acid with 4 hour reflex with value 3.3 mmol/L. Performed By: #### L [id number] ####[facility] ([facility])[address] [facility] [place] [address] LACTATE (MMOL/L) IN SER/PLAS 3.3 mmol/L Critically high 0.5-2.2 [facility] Comment on above: Performed By: #### L [id number] ####[facility] ([facility])[address] [facility] [address] LEGIONELLA ANTIGEN, URINEon 03-12-2025 LEGIONELLA AG, UR Negative Normal NEG [facility] Comment on above: Result Comment: L. p neumophila serogroup 1 antigen not detected.A negative result does not exclude infection with Leginella pnemophila serogroup 1 nor does it rule out other microbial-caused respiratory infections of disease caused by other serogroups of Legionella pneumophila.Test Performed by [employer] [address] [place] [address] - Vilhrqfh 03/12/2025 15:36 Performed By: #### L [id number] ####[facility] [id number] [place] [address] MAGNESIUMon 03-12-2025 Magnesium [Mass/Vol] 2.6 mg/dL Normal 1.9-2.7 [facility] Comment on above: Performed By: #### L [id number] ####[facility] ([facility])[address] [place] [address] Magnesium [Mass/Vol] 2.5 mg/dL Normal 1.9-2.7 [facility] Comment on above: Performed By: #### L [id number] ####[facility] ([facility])[address] [place] [address] MRSA/MSSA DNA NASALon 2024 MRSA DNA Negative Normal Negative [facility] Comment on above: Order Comment: Testi ng [...] preclude nasal colonization. Performed By: #### L [id number] ####[facility] ([facility])[address] [place] [address] MSSA DNA Negative Normal Negative [facility] Comment on above: Order Comment: Testi ng [...] preclude nasal colonization. Performed By: #### L [id number] ####[facility] ([facility])[address] [place] [address] NURSNOTEon 03-12-2025 THERESE Elder RN called report Normal [facility] PATHOLOGY REVIEWon PATHOLOGY REVIEW Reviewed. Normal [facility] Comment on above: Result Comment: Elec tronically signed by Deshawn Toure MD on 03/13/25 at 7:34 AM. Performed By: #### L [id number] ####[facility] ([facility])[address] [place] [address] PHOSPHORUSon 03-12-2025 Magnesium [Mass/Vol] 4.2 mg/dL Normal 2.5-5.0 [facility] Comment on above: Performed By: #### L [id number] ####[facility] ([facility])[address] [place] [address] Magnesium [Mass/Vol] 4.4 mg/dL Normal 2.5-5.0 [facility] Comment on above: Performed By: #### L [id number] ####[facility] ([facility])[address] [place] [address] POCT GLUCOSE METER UNSOLICIT ED RESULTSon 03-12-2025 Glucose [Mass/Vol] 150 mg/dL High 70-105 [facility] Comment on above: Order Comment: Waive d Testing in the ED is performed under the ED CLIA certificate #[id number]. Result Comment: vabu naw2 Performed By: #### L [id number] ####[facility] ([facility])[address] [place] [address] Glucose [Mass/Vol] 176 mg/dL High 70-105 [facility] Comment on above: Order Comment: Waive d Testing in the ED is performed under the ED CLIA certificate #[id number]. Result Comment: mmol den3 Performed By: #### L [id number] ####[facility] ([facility])[address] [place] [address] Glucose [Mass/Vol] 215 mg/dL High 70-105 [facility] Comment on above: Order Comment: Waive d Testing in the ED is performed under the ED CLIA certificate #[id number]. Result Comment: cgif for3 Performed By: #### L [id number] ####[facility] ([facility])[address] [place] [address] PROCALCITONIN TESTon 025 PROCALCITONIN IN BLOOD 15.02 ng/mL Critically high 0.00-0.10 [facility] Comment on above: Result Comment: Chela tor triglycerides while patient is on propofol Performed By: #### L [id number] ####[facility] ([facility])[address] [place] [address] RESPIRATORY CULTUREon 2024 Bacteria identified Cx Nom (Unsp spec) No growth at 5 days Normal [facility] Comment on above: Performed By: #### L [id number] ####[facility] ([facility])[address] [place] [address] GRAM STAIN RESULT Normal [facility] Comment on above: Result Comment: Many Polymorphonuclear leukocytesNo organisms seen Performed By: #### L [id number] ####[facility] ([facility])[address] [place] [address] RESPIRATORY VIRUS PCR PANELo n 03-12-2025 ADENOVIRUS DETECTION BY PCR Not detected Normal Not Detected [facility] Comment on above: Order Comment: Testi ng methodology is a multiplexed nucleic acid test intended for the simultaneous qualitative detection and differentiation of nucleic acids from multiple viral and bacterial respiratory organisms in nasopharyngeal swabs (KELP CUTTER). Performed By: #### L [id number] ####[facility] ([facility])[address] [place] [address] B. PARAPERTUSSIS DNA Not detected Normal Not Detected [facility] Comment on above: Order Comment: Testi ng methodology is a multiplexed nucleic acid test intended for the simultaneous qualitative detection and differentiation of nucleic acids from multiple viral and bacterial respiratory organisms in nasopharyngeal swabs (KELP CUTTER). Performed By: #### L [id number] ####[facility] ([facility])[address] [place] [address] BORDETELLA PERTUSSIS DNA PRESENCE IN UNSPECIFIED SPECIMEN BY WI* Not detected Normal Not Detected [facility] Comment on above: Order Comment: Testi ng methodology is a multiplexed nucleic acid test intended for the simultaneous qualitative detection and differentiation of nucleic acids from multiple viral and bacterial respiratory organisms in nasopharyngeal swabs (KELP CUTTER). Performed By: #### L [id number] ####[facility] ([facility])[address] [place] [address] CHLAMYDOPHILA PNEUMONIAE Not detected Normal Not Detected [facility] Comment on above: Order Comment: Testi ng methodology is a multiplexed nucleic acid test intended for the simultaneous qualitative detection and differentiation of nucleic acids from multiple viral and bacterial respiratory organisms in nasopharyngeal swabs (KELP CUTTER). Performed By: #### L [id number] ####[facility] ([facility])[address] [place] [address] CORONAVIRUS 229E Not detected Normal Not Detected [facility] Comment on above: Order Comment: Testi ng methodology is a multiplexed nucleic acid test intended for the simultaneous qualitative detection and differentiation of nucleic acids from multiple viral and bacterial respiratory organisms in nasopharyngeal swabs (KELP CUTTER). Performed By: #### L [id number] ####[facility] ([facility])[address] [place] [address] CORONAVIRUS HKU1 Not detected Normal Not Detected [facility] Comment on above: Order Comment: Testi ng methodology is a multiplexed nucleic acid test intended for the simultaneous qualitative detection and differentiation of nucleic acids from multiple viral and bacterial respiratory organisms in nasopharyngeal swabs (KELP CUTTER). Performed By: #### L [id number] ####[facility] ([facility])[address] [place] [address] CORONAVIRUS NL63 Not detected Normal Not Detected [facility] Comment on above: Order Comment: Testi ng methodology is a multiplexed nucleic acid test intended for the simultaneous qualitative detection and differentiation of nucleic acids from multiple viral and bacterial respiratory organisms in nasopharyngeal swabs (KELP CUTTER). Performed By: #### L [id number] ####[facility] ([facility])[address] [place] [address] CORONAVIRUS OC43 Not detected Normal Not Detected [facility] Comment on above: Order Comment: Testi ng methodology is a multiplexed nucleic acid test intended for the simultaneous qualitative detection and differentiation of nucleic acids from multiple viral and bacterial respiratory organisms in nasopharyngeal swabs (KELP CUTTER). Performed By: #### L [id number] ####[facility] ([facility])[address] [place] [address] HUMAN METAPNEUMOVIRUS Detected Abnormal Not Detected [facility] Comment on above: Order Comment: Testi ng methodology is a multiplexed nucleic acid test intended for the simultaneous qualitative detection and differentiation of nucleic acids from multiple viral and bacterial respiratory organisms in nasopharyngeal swabs (KELP CUTTER). Performed By: #### L [id number] ####[facility] ([facility])[address] [place] [address] HUMAN RHINOVIRUS+ENTEROVIRU S Not detected Normal Not Detected [facility] Comment on above: Order Comment: Testi ng methodology is a multiplexed nucleic acid test intended for the simultaneous qualitative detection and differentiation of nucleic acids from multiple viral and bacterial respiratory organisms in nasopharyngeal swabs (KELP CUTTER). Performed By: #### L [id number] ####[facility] ([facility])[address] [place] [address] INFLUENZA A Not detected Normal Not Detected [facility] Comment on above: Order Comment: Testi ng methodology is a multiplexed nucleic acid test intended for the simultaneous qualitative detection and differentiation of nucleic acids from multiple viral and bacterial respiratory organisms in nasopharyngeal swabs (KELP CUTTER). Performed By: #### L [id number] ####[facility] ([facility])[address] [place] [address] INFLUENZA B Not detected Normal Not Detected [facility] Comment on above: Order Comment: Testi ng methodology is a multiplexed nucleic acid test intended for the simultaneous qualitative detection and differentiation of nucleic acids from multiple viral and bacterial respiratory organisms in nasopharyngeal swabs (KELP CUTTER). Performed By: #### L [id number] ####[facility] ([facility])[address] [place] [address] MYCOPLASMA PNEUMONIAE Not detected Normal Not Detected [facility] Comment on above: Order Comment: Testi ng methodology is a multiplexed nucleic acid test intended for the simultaneous qualitative detection and differentiation of nucleic acids from multiple viral and bacterial respiratory organisms in nasopharyngeal swabs (KELP CUTTER). Performed By: #### L [id number] ####[facility] ([facility])[address] [place] [address] PARAINFLUENZA 1 Not detected Normal Not Detected [facility] Comment on above: Order Comment: Testi ng methodology is a multiplexed nucleic acid test intended for the simultaneous qualitative detection and differentiation of nucleic acids from multiple viral and bacterial respiratory organisms in nasopharyngeal swabs (KELP CUTTER). Performed By: #### L [id number] ####[facility] ([facility])[address] [place] [address] PARAINFLUENZA 2 Not detected Normal Not Detected [facility] Comment on above: Order Comment: Testi ng methodology is a multiplexed nucleic acid test intended for the simultaneous qualitative detection and differentiation of nucleic acids from multiple viral and bacterial respiratory organisms in nasopharyngeal swabs (KELP CUTTER). Performed By: #### L [id number] ####[facility] ([facility])[address] [place] [address] PARAINFLUENZA 3 Not detected Normal Not Detected [facility] Comment on above: Order Comment: Testi ng methodology is a multiplexed nucleic acid test intended for the simultaneous qualitative detection and differentiation of nucleic acids from multiple viral and bacterial respiratory organisms in nasopharyngeal swabs (KELP CUTTER). Performed By: #### L [id number] ####[facility] ([facility])[address] [place] [address] PARAINFLUENZA 4 Not detected Normal Not Detected [facility] Comment on above: Order Comment: Testi ng methodology is a multiplexed nucleic acid test intended for the simultaneous qualitative detection and differentiation of nucleic acids from multiple viral and bacterial respiratory organisms in nasopharyngeal swabs (KELP CUTTER). Performed By: #### L [id number] ####[facility] ([facility])[address] [place] [address] RESP SYNCYTIAL VIRUS Not detected Normal Not Detected [facility] Comment on above: Order Comment: Testi ng methodology is a multiplexed nucleic acid test intended for the simultaneous qualitative detection and differentiation of nucleic acids from multiple viral and bacterial respiratory organisms in nasopharyngeal swabs (KELP CUTTER). Performed By: #### L [id number] ####[facility] ([facility])[address] [facility] [place] [address] SARS-CoV-2 (COVID-19) RNA BECKIE+probe Ql (Unsp spec) Not detected Normal Not Detected [facility] Comment on above: Order Comment: Testi ng methodology is a multiplexed nucleic acid test intended for the simultaneous qualitative detection and differentiation of nucleic acids from multiple viral and bacterial respiratory organisms in nasopharyngeal swabs (KELP CUTTER). Performed By: #### L [id number] ####[facility] ([facility])[address] [facility] [place] [address] STREP PNEUMONIAE ANTIGEN, UR INEon 03-12-2025 STREPTOCOCCUS PNEUMONIAE AG PRESENCE IN URINE Negative Normal Negative [facility] Comment on above: Performed By: #### L [id number] ####[facility] ([facility])[address] [place] [address] TRIGLYCERIDESon 03-12-2025 FASTING? Unknown Normal [facility] Comment on above: Order Comment: Monit or triglycerides while patient is on propofol. Consult Nutrition if greater than 500 mg/dL. Performed By: #### L [id number] ####[facility] ([facility])[address] [facility] [place] [address] Magnesium [Mass/Vol] 95 mg/dL Normal <150 [facility] Comment on above: Order Comment: Monit or triglycerides while patient is on propofol. Consult Nutrition if greater than 500 mg/dL. Result Comment: TRIG LYCERIDE REFERENCE RANGE:20 YEARS AND OLDER CARDIOVASCULAR RISKLESS THAN 150 mg/dL LOW [id number] TO 199 mg/dL BORDERLINE [id number] mg/dL AND GREATER HIGH RISK Performed By: #### L [id number] ####[facility] ([facility])[address] [facility] [place] [address] URINALYSIS WITH MICROSCOPICo n 03-12-2025 BILIRUBIN, TOTAL PRESENCE IN URINE Negative Normal Negative [facility] Comment on above: Performed By: #### L [id number] ####[facility] ([facility])[address] [place] [address] Clarity (U) Clear Normal Clear [facility] Comment on above: Performed By: #### L [id number] ####[facility] ([facility])[address] [place] [address] Color (U) Yellow Normal Colorless, Yellow, Light-Yates ow [facility] Comment on above: Performed By: #### L [id number] ####[facility] ([facility])[address] [place] [address] GLUCOSE (MG/DL) IN URINE Normal Normal Normal [facility] Comment on above: Performed By: #### L [id number] ####[facility] ([facility])[address] [place] [address] HEMOGLOBIN PRESENCE IN URINE Moderate Abnormal Negative [facility] Comment on above: Performed By: #### L [id number] ####[facility] ([facility])[address] [place] [address] Ketones Ql (U) Negative Normal Negative [facility] Comment on above: Performed By: #### L [id number] ####[facility] ([facility])[address] [place] [address] LEUKOCYTE ESTERASE PRESENCE IN URINE BY TEST STRIP Negative Normal Negative [facility] Comment on above: Performed By: #### L [id number] ####[facility] ([facility])[address] [place] [address] MUCUS (#/LPF) IN URINE SEDIMENT Occasional Normal None Seen, Occasional , Few [facility] Comment on above: Performed By: #### L [id number] ####[facility] ([facility])[address] [place] [address] NITRITE PRESENCE IN URINE Negative Normal Negative [facility] Comment on above: Performed By: #### L [id number] ####[facility] ([facility])[address] [place] [address] pH (U) 5.5 [pH] Normal 5.0-8.0 [facility] Comment on above: Performed By: #### L [id number] ####[facility] ([facility])[address] [place] [address] Protein (U) [Mass/Vol] Negative Normal Negative [facility] Comment on above: Performed By: #### L [id number] ####[facility] ([facility])[address] [place] [address] RBC (#/HPF) IN URINE SEDIMENT 11-20 Abnormal None Seen, 0-2 [facility] Comment on above: Performed By: #### L [id number] ####[facility] ([facility])[address] [place] [address] Specific gravity (U) [Rel density] >1.050 High 1.010-1.03 0 [facility] Comment on above: Performed By: #### L [id number] ####[facility] ([facility])[address] [place] [address] SQUAMOUS EPITHELIAL CELLS (#/LPF) IN URINE SEDIMENT Occasional Normal None Seen, Occasional , Few [facility] Comment on above: Performed By: #### L [id number] ####[facility] ([facility])[address] [place] [address] UROBILINOGEN (MG/DL) IN URINE Normal Normal Normal [facility] Comment on above: Performed By: #### L [id number] ####[facility] ([facility])[address] [place] [address] WBC (LEUKOCYTE) (#/HPF) IN URINE SEDIMENT 3-5 Abnormal None Seen, 0-2 [facility] Comment on above: Performed By: #### L [id number] ####[facility] ([facility])[address] [place] [address] No Panel Informationon 01-30 [facility] Type of biopsy: gonsalez ential Informed consent: [...] taken Amount of lidocaine used: 1.0 cc [facility] Complete Pulmonary Function Test Pre/Post Bronchodilator (Spirometry Pre/Post/DLCO/Lung Volumes)Ordered By: Pepito Nguyen on 11-27-2024 FEV1 - Post 1.07 [facility] Work Phone: FEV1 - Pre 1.03 [facility] Work Phone: FEV1 - Predicted 1.95 [facility] Work Phone: FVC - Post 1.63 [facility] Work Phone: FVC - PRE 1.7 [facility] Work Phone: FVC Predicted 2.54 [facility] Work Phone: [facility] Work Phone: Complete Pulmonary Function Test Pre/Post [...] expansion or localized loss of lung volume. [facility] Pepito Quintana MD - 11/27/2024 The FEV1/FVC [...] expansion or localized loss of lung volume. [facility] Work Phone: 1,25-dihydroxyvitamin D3 [Ma ss/Vol]on 10-15-2024 1,25-dihydroxyvitamin D [Mass/Vol] 57.4 pg/mL Normal 19.9-79.3 [facility] Comment on above: Result Comment: INTE RPRETIVE INFORMATION: Vitamin D, 1,25-Dihydroxy This test is primarily indicated during patient evaluation for hypercalcemia and renal failure. A normal result does not rule out Vitamin D deficiency. The recommended test for diagnosing Vitamin D deficiency is Vitamin D 25-hydroxy. Performed By: [employer] [address] [place] [address] Clinical Biostatistician: Ryley Cardenas MD, PhD CLIA Number: [id number] Performed By: #### 1 649-3 #### [facility] ([id number]) [address] [place], [place] [id number] CBC W Auto Differential pane l (Bld)on 10-15-2024 Basophils (Bld) [#/Vol] 0.04 10*3/uL [facility] Basophils/100 WBC (Bld) 0.5 % 0.0 - 2.0 % [facility] Eosinophils (Bld) [#/Vol] 0.29 10*3/uL [facility] Eosinophils/100 WBC (Bld) 3.9 % 0.0 - 6.0 % [facility] Erythrocyte distribution width (RBC) [Ratio] 12.9 % 11.5 - 14.5 % [facility] Hematocrit (Bld) [Volume fraction] 44.2 % 36.0 - 46.0 % [facility] Hemoglobin (Bld) [Mass/Vol] 14 g/dL 12.0 - 16.0 g/dL [facility] Immature granulocytes (Bld) [#/Vol] 0.03 10*3/uL [facility] Immature granulocytes/100 WBC (Bld) 0.4 % 0.0 - 0.9 % [facility] Comment on above: Immature Granulocyte Count (IG) includes promyelocytes, myelocytes and metamyelocytes but does not include bands. Percent differential counts (%) should be interpreted in the context of the absolute cell counts (cells/UL). Interpretation and review of laboratory results Abnormal [facility] Lymphocytes (Bld) [#/Vol] 1.01 10*3/uL [facility] Lymphocytes/100 WBC (Bld) 13.5 % 13.0 - 44.0 % [facility] MCH (RBC) [Entitic mass] 29.5 pg 26.0 - 34.0 pg [facility] MCHC (RBC) [Mass/Vol] 31.7 g/dL Low 32.0 - 36.0 g/dL [facility] MCV (RBC) [Entitic vol] 93 fL 80 - 100 fL [facility] Monocytes (Bld) [#/Vol] 0.77 10*3/uL [facility] Monocytes/100 WBC (Bld) 10.3 % 2.0 - 10.0 % [facility] Neutrophils (Bld) [#/Vol] 5.36 10*3/uL [facility] Comment on above: Percent differential counts (%) should be interpreted in the context of the absolute cell counts (cells/uL). Neutrophils/100 WBC (Bld) 71.4 % 40.0 - 80.0 % [facility] Nucleated RBC/100 WBC (Bld) [Ratio] 0 % [facility] Platelets (Bld) [#/Vol] 193 10*3/uL [facility] RBC (Bld) [#/Vol] 4.74 10*6/uL [facility] WBC (Bld) [#/Vol] 7.5 10*3/uL [facility] Basophils (Bld) [#/Vol] 0.04 x10*3/uL Normal 0.00-0.10 [facility] Comment on above: Performed By: #### 5 7021-8 #### [facility] ([id number]) [facility] ([facility] [address] [place] [address] Basophils/100 WBC (Bld) 0.5 % Normal 0.0-2.0 [facility] Comment on above: Performed By: #### 5 7021-8 #### [facility] SWIFT ([id number]) [facility] ([facility] [address] [place] [address] Eosinophils (Bld) [#/Vol] 0.29 x10*3/uL Normal 0.00-0.40 [facility] Comment on above: Performed By: #### 5 7021-8 #### [facility]IFT ([id number]) [facility] ([facility] [address] [place] [address] Eosinophils/100 WBC (Bld) 3.9 % Normal 0.0-6.0 [facility] Comment on above: Performed By: #### 5 7021-8 #### [facility] SWIFT ([id number]) [facility] ([facility] [address] [place] [address] Erythrocyte distribution width (RBC) [Ratio] 12.9 % Normal 11.5-14.5 [facility] Comment on above: Performed By: #### 5 7021-8 #### [facility] SWIFT ([id number]) [facility] ([facility] [address] [place] [address] Hematocrit (Bld) [Volume fraction] 44.2 % Normal 36.0-46.0 [facility] Comment on above: Performed By: #### 5 7021-8 #### LOW SWIFT ([id number]) [facility] ([facility] [address] [place] [address] Hemoglobin (Bld) [Mass/Vol] 14.0 g/dL Normal 12.0-16.0 [facility] Comment on above: Performed By: #### 5 7021-8 #### LOW SWIFT (55812) [facility] ([facility] [address] [place] [address] Immature granulocytes (Bld) [#/Vol] 0.03 x10*3/uL Normal 0.00-0.50 [facility] Comment on above: Performed By: #### 5 7021-8 #### LOW SWIFT (74426) [facility] ([facility] [address] [place] [address] Immature granulocytes/100 WBC (Bld) 0.4 % Normal 0.0-0.9 [facility] Comment on above: Result Comment: Bina ture Granulocyte Count (IG) includes promyelocytes, myelocytes and metamyelocytes but does not include bands. Percent differential counts (%) should be interpreted in the context of the absolute cell counts (cells/UL). Performed By: #### 5 7021-8 #### LOW SWIFT (92198) [facility] ([facility] [address] [place] [address] Lymphocytes (Bld) [#/Vol] 1.01 x10*3/uL Normal 0.80-3.00 [facility] Comment on above: Performed By: #### 5 7021-8 #### LOW SWIFT (60240) [facility] ([facility] [address] [place] [address] Lymphocytes/100 WBC (Bld) 13.5 % Normal 13.0-44.0 [facility] Comment on above: Performed By: #### 5 7021-8 #### LOW SWIFT (29986) [facility] ([facility] [address] [place] [address] MCH (RBC) [Entitic mass] 29.5 pg Normal 26.0-34.0 [facility] Comment on above: Performed By: #### 5 7021-8 #### LOW SWIFT (06923) [facility] ([facility] [address] [place] [address] MCHC (RBC) [Mass/Vol] 31.7 g/dL Low 32.0-36.0 [facility] Comment on above: Performed By: #### 5 7021-8 #### LOW SWIFT (93420) [facility] ([facility] [address] [place] [address] MCV (RBC) [Entitic vol] 93 fL Normal 80-100 [facility] Comment on above: Performed By: #### 5 7021-8 #### LOW SWIFT (35936) [facility] ([facility] [address] [place] [address] Monocytes (Bld) [#/Vol] 0.77 x10*3/uL Normal 0.05-0.80 [facility] Comment on above: Performed By: #### 5 7021-8 #### LOW SWIFT (74795) [facility] ([facility] [address] [place] [address] Monocytes/100 WBC (Bld) 10.3 % Normal 2.0-10.0 [facility] Comment on above: Performed By: #### 5 7021-8 #### LWO SWIFT (29169) [facility] ([facility] [address] [place] [address] Neutrophils (Bld) [#/Vol] 5.36 x10*3/uL Normal 1.60-5.50 [facility] Comment on above: Result Comment: Perc ent differential counts (%) should be interpreted in the context of the absolute cell counts (cells/uL). Performed By: #### 5 7021-8 #### LOW SWIFT (58105) [facility] ([facility] [address] [place] [address] Neutrophils/100 WBC (Bld) 71.4 % Normal 40.0-80.0 [facility] Comment on above: Performed By: #### 5 7021-8 #### LOW SWIFT (88211) [facility] ([facility] [address] [place] [address] Nucleated RBC/100 WBC (Bld) [Ratio] 0.0 /100 WBCs Normal 0.0-0.0 [facility] Comment on above: Performed By: #### 5 7021-8 #### LOW SWIFT (08479) [facility] ([facility] [address] [place] [address] Platelets (Bld) [#/Vol] 193 x10*3/uL Normal 150-450 [facility] Comment on above: Performed By: #### 5 7021-8 #### LOW SWIFT (81821) [facility] ([facility] [address] [place] [address] RBC (Bld) [#/Vol] 4.74 x10*6/uL Normal 4.00-5.20 [facility] Comment on above: Performed By: #### 5 7021-8 #### LOW SWIFT (45102) [facility] ([facility] [address] [place] [address] WBC (Bld) [#/Vol] 7.5 x10*3/uL Normal 4.4-11.3 [facility] Comment on above: Performed By: #### 5 7021-8 #### LOW SWIFT (34320) [facility] ([facility] [address] [place] [address] Comprehensive metabolic 2000 panelon 10-15-2024 Albumin BCP dye [Mass/Vol] 4 g/dL 3.4 - 5.0 g/dL [facility] ALP [Catalytic activity/Vol] 49 U/L 33 - 136 U/L [facility] ALT With P-5'-P [Catalytic activity/Vol] 11 U/L 7 - 45 U/L [facility] Comment on above: Patients treated wit h Sulfasalazine may generate falsely decreased results for ALT. Anion gap [Moles/Vol] 12 mmol/L 10 - 2 0 mmol/L [facility] AST With P-5'-P [Catalytic activity/Vol] 14 U/L 9 - 39 U/L [facility] Bilirubin [Mass/Vol] 1.5 mg/dL High 0.0 - 1 .2 mg/dL [facility] Calcium [Mass/Vol] 9.7 mg/dL 8.6 - 10. 3 mg/dL [facility] Chloride [Moles/Vol] 106 mmol/L 98 - 10 7 mmol/L [facility] CO2 [Moles/Vol] 28 mmol/L 21 - 32 mmol/L [facility] Creatinine [Mass/Vol] 1.09 mg/dL High 0.50 - 1.05 mg/dL [facility] GFR/1.73 sq M.predicted among non-blacks MDRD (S/P/Bld) [Vol rate/Area] 52 mL/min/{1.73_m2} Low - PINF [facility] Comment on above: Calculations of karla mated GFR are performed using the 2020 CKD-EPI Study Refit equation without the race variable for the IDMS-Traceable creatinine methods. https://jasn.asnjournals.org/content/early/ASN.433587 1108 Glucose [Mass/Vol] 81 mg/dL 74 - 99 mg/dL [facility] Interpretation and review of laboratory results Abnormal [facility] Potassium [Moles/Vol] 4.3 mmol/L 3.5 - 5.3 mmol/L [facility] Protein [Mass/Vol] 5.8 g/dL Low 6.4 - 8.2 g/dL [facility] Sodium [Moles/Vol] 142 mmol/L 136 - 145 mmol/L [facility] Urea nitrogen [Mass/Vol] 17 mg/dL 6 - 23 mg/dL [facility] Albumin BCP dye [Mass/Vol] 4.0 g/dL Normal 3.4-5.0 [facility] Comment on above: Performed By: #### 2 4323-8 #### LOW SWIFT (05036) [facility] ([facility] [address] [place] [address] ALP [Catalytic activity/Vol] 49 U/L Normal 33-136 [facility] Comment on above: Performed By: #### 2 4323-8 #### LOW SWIFT (84255) [facility] ([facility] [address] [place] [address] ALT With P-5'-P [Catalytic activity/Vol] 11 U/L Normal 7-45 [facility] Comment on above: Result Comment: Shabnam ents treated with Sulfasalazine may generate falsely decreased results for ALT. Performed By: #### 2 4323-8 #### LOW SWIFT (59602) [facility] ([facility] [address] [place] [address] Anion gap [Moles/Vol] 12 mmol/L Normal 10-20 [facility] Comment on above: Performed By: #### 2 4323-8 #### LOW SWIFT (30003) [facility] ([facility] [address] [place] [address] AST With P-5'-P [Catalytic activity/Vol] 14 U/L Normal 9-39 [facility] Comment on above: Performed By: #### 2 4323-8 #### LOW SWIFT (84238) [facility] ([facility] [address] [place] [address] Bilirubin [Mass/Vol] 1.5 mg/dL High 0.0-1.2 [facility] Comment on above: Performed By: #### 2 4323-8 #### LOW SWIFT (16242) [facility] ([facility] [address] [place] [address] Calcium [Mass/Vol] 9.7 mg/dL Normal 8.6-10.3 [facility] Comment on above: Performed By: #### 2 4323-8 #### LOW SWIFT (23652) [facility] ([facility] [address] [place] [address] Chloride [Moles/Vol] 106 mmol/L Normal 98-107 [facility] Comment on above: Performed By: #### 2 4323-8 #### LOW SWIFT (58591) [facility] ([facility] [address] [place] [address] CO2 [Moles/Vol] 28 mmol/L Normal 21-32 [facility] Comment on above: Performed By: #### 2 4323-8 #### LOW SWIFT (98556) [facility] ([facility] [address] [place] [address] Creatinine [Mass/Vol] 1.09 mg/dL High 0.50-1.05 [facility] Comment on above: Performed By: #### 2 4323-8 #### LOW SWIFT (34290) [facility] ([facility] [address] [place] [address] Glomerular filtration rate/1.73 sq M.predicted 52 mL/min/1.73m*2 Low >60 [facility] Comment on above: Result Comment: Calc ulations of estimated GFR are performed using the 2020 CKD-EPI Study Refit equation without the race variable for the IDMS-Traceable creatinine methods. https://jasn.asnjournals.org/content//ASN.404405 9433 Performed By: #### 2 4323-8 #### LOW SWIFT (47030) [facility] ([facility] [address] [place] [address] Glucose [Mass/Vol] 81 mg/dL Normal 74-99 [facility] Comment on above: Performed By: #### 2 4323-8 #### LOW SWIFT (41392) [facility] ([facility] [address] [place] [address] Potassium [Moles/Vol] 4.3 mmol/L Normal 3.5-5.3 [facility] Comment on above: Performed By: #### 2 4323-8 #### LOW SWIFT (02003) [facility] ([facility] [address] [place] [address] Protein [Mass/Vol] 5.8 g/dL Low 6.4-8.2 [facility] Comment on above: Performed By: #### 2 4323-8 #### LOW SWIFT (39461) [facility] ([facility] [address] [place] [address] Sodium [Moles/Vol] 142 mmol/L Normal 136-145 [facility] Comment on above: Performed By: #### 2 4323-8 #### LOW SWIFT (73005) [facility] ([facility] [address] [place] [address] Urea nitrogen [Mass/Vol] 17 mg/dL Normal 6-23 [facility] Comment on above: Performed By: #### 2 4323-8 #### LOW SWIFT (55199) [facility] ([facility] [address] [place] [address] ECG 12 Leadon 09-09-2024 Normal sinus rhythm, normal EKG. compared to the EKG from January 2023, inferior T wave abnormality has resolved [facility] Work Phone: No Panel Informationon 09-05 [facility] [employer] Estimated glomerular filtrat ion rate (GFR) non- Americanon 07-04-2024 GFR/1.73 sq M.predicted among non-blacks MDRD (S/P/Bld) [Vol rate/Area] 46 mL/min/{1.73_m2} Low >=60 [facility] - Chemistry and C hemistry - challengeon 07-04-2024 Creatinine [Mass/Vol] 1.14 mg/dL High 0.55-1.02 [facility] GFR/1.73 sq M.predicted MDRD (S/P/Bld) [Vol rate/Area] 56 mL/min/{1.73_m2} Low >=60 [facility] Body fluid differential cell countOrdered By: Dayanna Lobo on 01-22-2024 Differential panel (Body fld) 44 % [facility] Comment on above: The reference interv al and other method performance specifications have not been established for this body fluid. The test result must be integrated into the clinical context for interpretation. Cell Count/Diff, Fluidon Appearance, Fluid Hazy Normal [facility] Comment on above: Order Comment: Body Fluid Source: Other (Name in the Site) Body Fluid Site: RML Result Comment: The reference interval and other method performance specifications have not been established for this body fluid. The test result must be integrated into the clinical context for interpretation. Performed By: #### F LCCDIFF #### [address] Order Comment: Body Fluid Source: Other (Name in the Site) Body Fluid Site: Rul Color, Fluid Straw Normal [facility] Comment on above: Order Comment: Body Fluid Source: Other (Name in the Site) Body Fluid Site: RML Result Comment: The reference interval and other method performance specifications have not been established for this body fluid. The test result must be integrated into the clinical context for interpretation. Performed By: #### F LCCDIFF #### [address] Order Comment: Body Fluid Source: Other (Name in the Site) Body Fluid Site: Rul Color, Fluid Supernatant Straw Normal [facility] Comment on above: Order Comment: Body Fluid Source: Other (Name in the Site) Body Fluid Site: RML Result Comment: The reference interval and other method performance specifications have not been established for this body fluid. The test result must be integrated into the clinical context for interpretation. Performed By: #### F LCCDIFF #### [facility] [address] [place] [address] Order Comment: Body Fluid Source: Other (Name in the Site) Body Fluid Site: Rul Eosinophils, Fluid 2 /100{WBC} Normal 0-3 [place] Comment on above: Order Comment: Body Fluid Source: Other (Name in the Site) Body Fluid Site: RML Result Comment: PERF ORMED BY: [place] [address] PATHOLOGIST NURSING TECH CRISTHIAN REYEZ M.D. Performed By: #### F LCCDIFF #### [address] Order Comment: Body Fluid Source: Other (Name in the Site) Body Fluid Site: Rul Lymphocytes, Fluid 13 % Normal [facility] Comment on above: Order Comment: Body Fluid Source: Other (Name in the Site) Body Fluid Site: RML Result Comment: The reference interval and other method performance specifications have not been established for this body fluid. The test result must be integrated into the clinical context for interpretation. Performed By: #### F LCCDIFF #### [address] Lymphocytes, Fluid 11 % Normal [facility] Comment on above: Order Comment: Body Fluid Source: Other (Name in the Site) Body Fluid Site: Rul Result Comment: The reference interval and other method performance specifications have not been established for this body fluid. The test result must be integrated into the clinical context for interpretation. Performed By: #### F LCCDIFF #### [address] Monocytes/Macrophages , Fluid 44 % Normal [facility] Comment on above: Order Comment: Body Fluid Source: Other (Name in the Site) Body Fluid Site: RML Result Comment: The reference interval and other method performance specifications have not been established for this body fluid. The test result must be integrated into the clinical context for interpretation. Performed By: #### F LCCDIFF #### [address] Monocytes/Macrophages , Fluid 45 % Normal [facility] Comment on above: Order Comment: Body Fluid Source: Other (Name in the [facility] [[email or web address] Body Fluid Site: Rul Result Comment: The reference interval and other method performance specifications have not been established for this body fluid. The test result must be integrated into the clinical context for interpretation. Performed By: #### F LCCDIFF #### [address] Neutrophil, Fluid 41 % Normal [facility] Comment on above: Order Comment: Body Fluid Source: Other (Name in the Site) Body Fluid Site: RML Result Comment: The reference interval and other method performance specifications have not been established for this body fluid. The test result must be integrated into the clinical context for interpretation. Performed By: #### F LCCDIFF #### [facility] [address] Neutrophil, Fluid 42 % Normal [facility] Comment on above: Order Comment: Body Fluid Source: Other (Name in the Site) Body Fluid Site: Rul Result Comment: The reference interval and other method performance specifications have not been established for this body fluid. The test result must be integrated into the clinical context for interpretation. Performed By: #### F LCCDIFF #### [address] RBC, Fluid 2329 [facility] Comment on above: Order Comment: Body Fluid Source: Other (Name in the Site) Body Fluid Site: RML Result Comment: The reference interval and other method performance specifications have not been established for this body fluid. The test result must be integrated into the clinical context for interpretation. Performed By: #### F LCCDIFF #### [facility] [address] [place] [address] RBC, Fluid 2399 [facility] Comment on above: Order Comment: Body Fluid Source: Other (Name in the Site) Body Fluid Site: Rul Result Comment: The reference interval and other method performance specifications have not been established for this body fluid. The test result must be integrated into the clinical context for interpretation. Performed By: #### F LCCDIFF #### [facility] [address] [place], Body Fluid 163 [facility] Comment on above: Order Comment: Body Fluid Source: Other (Name in the [facility] [[email or web address] Body Fluid Site: RML Result Comment: The reference interval and other method performance specifications have not been established for this body fluid. The test result must be integrated into the clinical context for interpretation. Performed By: #### F LCCDIFF #### [facility] [address] [place] [id number] [facility] TNC, Body Fluid 352 Normal [facility] Comment on above: Order Comment: Body Fluid Source: Other (Name in the Site) Body Fluid Site: Rul Result Comment: The reference interval and other method performance specifications have not been established for this body fluid. The test result must be integrated into the clinical context for interpretation. Performed By: #### F LCCDIFF #### [facility] [address] [place] [id number] [facility] Cells Counted Total [#] in B fredy fluidOrdered By: Dayanna Lobo on 01-22-2024 Cells Counted Total (Body fld) [#] 163 mm^3 [facility] Comment on above: The reference interv al and other method performance specifications have not been established for this body fluid. The test result must be integrated into the clinical context for interpretation. Color of Spun Body fluidOrde red By: Dayanna Lobo on 01-22-2024 Color (Spun body fld) [facility] Comment on above: The reference interv al and other method performance specifications have not been established for this body fluid. The test result must be integrated into the clinical context for interpretation. Determination of appearance of body fluidOrdered By: Dayanna Lobo on 01-22-2024 Appearance (Body fld) [facility] Comment on above: The reference interv al and other method performance specifications have not been established for this body fluid. The test result must be integrated into the clinical context for interpretation. Erythrocytes [#/volume] in B fredy fluid by Automated countOrdered By: Dayanna Lobo on 01-22-2024 RBC Auto (Body fld) [#/Vol] 2329 mm^3 [facility] Comment on above: The reference interv al and other method performance specifications have not been established for this body fluid. The test result must be integrated into the clinical context for interpretation. Evaluation of color of body fluidOrdered By: Dayanna Lobo on 01-22-2024 Color (Body fld) [facility] Comment on above: The reference interv al and other method performance specifications have not been established for this body fluid. The test result must be integrated into the clinical context for interpretation. Alex 01-22-2024 L Specimen: [id number] Received: 01/23/24 Status: CLAUDIA Love Num: [id number] Spec Type: Cytology Subm Dr: Dayanna Lobo DO Tissues: A BRONWASH (BRONCH) B BRONWASH (R UPPER LOBE) C BRONWASH (R MIDDLE LOBE) Procedures: HE/6, Gross/Micro L4/3, Cyto Prepstain/3, PAPSTN/3 Age/ Patient Sex Location Account Attending Physician BriPilo M 78/F [facility] [id number] Dayanna Lobo DO SPEC NUM: [id number] RECD: 01/23/24 STATUS: CLAUDIA LOVE NUM: [id number] MARK: 01/22/24 DR: Dayanna Lobo DO ENTERED: 01/23/[address] [facility] [address]: Elisabeth Zarate SPEC TYPE: Cytology DEPT: [facility] ENTERED BY: [id number] RECV BY: [id number] ORDERED: HE/6, Gross/Micro L4/3, Cyto Prepstain/3, PAPSTN/3 [...] prepared. (CC/nh) Specimen: [id number] Received: 01/23/24 Status: OSCARGuillermo Love Num: [id number] Spec Type: Cytology Subm Dr: Dayanna Lobo DO Tissues: A BRONWASH (BRONCH) B BRONWASH (R UPPER LOBE) C BRONWASH (R MIDDLE LOBE) Procedures: HE/6, Gross/Micro L4/3, Cyto Prepstain/3, PAPSTN/3 Patient: Nicky Gregoryricia Hector [id number] (Continued) Specimen: BC Received: 01/23/24 (Continued) Gross Description (Continued) Signed (signature on file) Nitesh Chambers MD 01/24/24 1406 Specimen: [id number] Received: 01/23/24 Status: CLAUDIA Love Num: [id number] Spec Type: Cytology Subm Dr: Dayanna Lobo DO Tissues: A BRONWASH (BRONCH) B BRONWASH (R UPPER LOBE) C BRONWASH (R MIDDLE LOBE) Procedures: HE/6, Gross/Micro L4/3, Cyto Prepstain/3, PAPSTN/3 Patient: Pilo Gregory [id number] (Continued) Specimen: [id number] Received: 01/23/24 (Continued) Gross Description (Continued) C. Received fresh labeled with the patient's name, date of and R upper lobe lavage is 5 ml rico cloudy unfixed fluid. 1 Thin Prep slides are prepared. 1 cell blocks are prepared. (CC/nh) Specimen: [id number] Received: 01/23/24 Status: CLAUDIA Love Num: [id number] Spec Type: Cytology Subm Dr: Dayanna Lobo DO Tissues: A BRONWASH (BRONCH) B BRONWASH (R UPPER LOBE) C BRONWASH (R MIDDLE LOBE) Procedures: HE/6, Gross/Micro L4/3, Cyto Prepstain/3, PAPSTN/3 Patient: Pilo Gregory [id number] (Continued) Signed (signature on file) Nitesh Chambers MD 01/24/24 1406 Normal [facility] Manual body fluid eosinophil s/100 leukocytesOrdered By: Dayanna Lobo on 01-22-2024 Eosinophils/100 WBC Manual cnt (Body fld) 2 /100{WBC} 0-3 [facility] Manual body fluid lymphocyte s/100 leukocytesOrdered By: Dayanna Lobo on 01-22-2024 Lymphocytes/100 WBC Manual cnt (Body fld) 13 % [facility] Comment on above: The reference interv al and other method performance specifications have not been established for this body fluid. The test result must be integrated into the clinical context for interpretation. Neutrophils/100 WBC Manual c nt (Body fld)Ordered By: Dayanna Lobo on 01-22-2024 Neutrophils/100 WBC (Body fld) 41 % [facility] Comment on above: The reference interv al and other method performance specifications have not been established for this body fluid. The test result must be integrated into the clinical context for interpretation. A. flavus Ab Immune diff Ql (S)on 01-01-2024 Aspergillus flavus Antibody Negative Neg:<1:1 [facility] A. niger IgE Qn (S)on 2023 Aspergillus niger Antibody Negative Neg:<1:1 [facility] Comment on above: Performed at: [employer] [address] [id number] Director: Skylar Ortega MD, Phone: [phone] Performed at: [employer] [address] [id number] Director: Skylar Ortega MD, Phone: [phone] Adenosine monophosphate.cycl ic [Moles/Vol]on 01-01-2024 Cyclic Citrullinated Peptid IgG/IgA 0 units 0-19 [facility] Comment on above: Negative <20 Weak po sitive 20 - 39 Moderate positive 40 - 59 Strong positive >59Performed at: [employer] [address] [id number] Director: García Salcedo PhD, Phone: [phone] Negative <20 Weak po sitive 20 - 39 Moderate positive 40 - 59 Strong positive >59Performed at: [employer] [address] [id number] Director: García Salcedo PhD, Phone: [phone] Atypical perinuclear antineu trophil cytoplasmic antibodies measurementon 01-01-2024 Neutrophil cytoplasmic Ab.perinuclear.atypic al IF (S) [Titer] <1:20 titer Neg:<1:20 [facility] Comment on above: Serum is slightly he molyzedThe atypical pANCA pattern has been observed in asignificant percentage of patients with ulcerative colitis,primary sclerosing cholangitis and autoimmune hepatitis.Performed at: [employer] [id number] Director: Skylar Ortega MD, Phone: [phone] at: [employer] [id number] [place] [id number] Director: García Salcedo PhD, Phone: [phone] Cefuroxime free [Mass/Vol]on 01-01-2024 Anti-Nuclear Antibody Profile Negative Negative [facility] Comment on above: Performed at: [employer] [address] [id number] Director: García Salcedo PhD, Phone: [phone] Performed at: [employer] [address] [id number] Director: García Salcedo PhD, Phone: [phone] Performed at: [employer] [address] [id number] Director: García Salcedo PhD, Phone: [phone] Performed at: [employer] [address] [id number] Director: García Salcedo PhD, Phone: [phone] H. capsulatum Ab CF Ql (S)on 01-01-2024 Histoplasma Mycelial Ab (Comp Fix) Negative Neg:<1:2 [facility] Histoplasma Yeast Ab (Comp Fix) Negative Neg:<1:2 [facility] Comment on above: Performed at: [facility] [place] [address] [id number] Director: Skylar Ortega MD, Phone: [phone] Performed at: [employer] [address] [id number] Director: Skylar Ortega MD, Phone: [phone] Performed at: [facility] [place] [address] [id number] Director: Skylar Ortega MD, Phone: [phone] Laboratory - Hematology and Cell countson 01-01-2024 ESR (Bld) [Velocity] 25 mm/h <=30 [facility] Myeloperoxidase Ab [Units/vo lume] in Serum by Immunoassayon 01-01-2024 Myeloperoxidase Ab IA Qn (S) <0.2 units 0.0-0.9 [facility] No Panel Informationon 12-31 Histoplasma Galactomannan Antigen Negative <0.5 ng/mL [facility] Comment on above: This test was develo ped and its performance characteristicsdetermined by [facility]. It has not been cleared orapproved by the Food and Drug Administration.Performed at: - [facility] [facility], [place] [id number] Director: Lori Green MD, Phone: [phone] Aspergillus fumigatus Antibody Negative Neg:<1:1 [facility] Blastomyces dermatitidis Antibody Negative Neg:<1:1 [facility] Comment on above: Performed at: [facility] - [facility] [place] [address] [id number] Director: Skylar Ortega MD, Phone: [phone] C-Reactive Protein, Quantitative 1.37 mg/dL <=0.50 [facility] Perinuclear ANCA (p-ANCA) Antibody <1:20 titer Neg:<1:20 [facility] Comment on above: Serum is slightly he molyzedThe presence of positive fluorescence exhibiting P-ANCA orC-ANCA patterns alone is not specific for the diagnosis ofWegener's Granulomatosis (WG) or microscopic polyangiitis.Decisions about treatment should not be based solely onANCA IFA results. The International ANCA Group Consensusrecommends follow up testing of positive sera with both WI-3 and MPO-ANCA enzyme immunoassays. As many as 5% serumsamples are positive only by EIA. Ref. AM J Clin Nskpfw9589;111:507-513. Proteinase 3 Ab [Units/volum e] in Serum by Immunoassayon 01-01-2024 Proteinase 3 Ab IA Qn (S) <0.2 units 0.0-0.9 [facility] SCL-70 extractable nuclear A b IA Qn (S)on 01-01-2024 Scl-70 (Scleroderma) Antibody <0.2 AI 0.0-0.9 [facility] Serum angiotensin converting enzyme (MOJGAN) measurementon 01-01-2024 Angiotensin converting enzyme [Catalytic activity/Vol] 63 U/L 1482 [facility] Comment on above: Performed at: [facility] - [facility] [id number] [place], [place] [id number] Director: García Salcedo PhD, Phone: [phone] Serum classic neutrophil cyt oplasmic antibody titer by immunofluorescenceon 01-01-2024 Neutrophil cytoplasmic Ab.classic IF (S) [Titer] <1:20 titer Neg:<1:20 [facility] Comment on above: Serum is slightly he molyzed Serum or plasma rheumatoid f actor measurement (units/volume)on 01-01-2024 Rheumatoid factor Qn 10.3 [IU]/mL <14.0 [facility] Comment on above: Performed at: [address] [id number] Director: García Salcedo PhD, Phone: [phone] CT CARDIAC SCORINGon CT CARDIAC SCORING Addendum [...] STRUCTURES ARE THE SOLE RESPONSIBILITY OF THE SUPERVISOR PACKING ROOM SUBMITTING THE ORIGINAL REPORT (NOT THIS ADDENDUM) Electronically signed by: SUKHJINDER MOONEY MD Addendum Ends Patient Name: PILO GREGORY STUDY: CT CARDIAC SCORING; 03/24/2023 10:58 am INDICATION: htn, hyperlipedmia E78.5: Hyperlipidemia R07.89: Chest tightness. COMPARISON: None. ACCESSION NUMBER(S): [id number] ORDERING CLINICIAN: KATHLEEN CASTRO TECHNIQUE: Using prospective [...] https://www.link-nhlbi.org /MESACHDRisk/MesaRiskScore /RiskScore.aspx Kirsten et al. JACC 2015 (http://dx.doi.org/10.1016 /j.j acc.2015.08.035) Reading Drawing Tracer: Dr. Valerio Morris, Date: 03/24/2023 11:23 am Electronically signed by: SUKHJINDER MOONEY MD Normal [facility] CT Cardiac Scoringon 023 CT Cardiac Scoring Normal -[facility] [address] DO Work Phone: Tobacco Screening.on 023 Tobacco use status HS b) No -[facility] DO Work Phone: [facility] CARDIAC STRESS/REST INJE CTIONon 03-01-2023 [facility] CARDIAC STRESS/REST INJECTION Patient Name: PILO GREGORY STUDY: MYOCARDIAL PERFUSION STRESS TEST WITH EXERCISE CONVERTED TO LEXISCAN Performing facility: [facility], [address] [place] [address], [address], [address] Provider: Kathleen Castro MD, FACC PCP: Dr. Ellis Tomlin Supervising provider: Patti Auguste MD, FACC INDICATION: Dyspnea Chest tightness HISTORY: Gender: F; Age: 77 y/o ; Height: 0 cm; Weight: 0 kg. Chest Pain; High Cholesterol; SOB; Denies smoking. COMPARISON: No comparison. ACCESSION NUMBER(S): [id number]; [id number]; [id number] ORDERING CLINICIAN: KATHLEEN CASTRO TECHNIQUE: ONE DAY [...] Electronically signed by: PATTI AUGUSTE MD Normal [facility] No Panel Informationon 03-01 Normal -[facility] [facility] [address] DO Work Phone: LIPID PROFILEon 02-27-2023 CHOL-HDL RATIO NORM SEE BELOW Normal [facility] Comment on above: Result Comment: 3.3 - 4.4 LOW RISK 4.4 - 7.1 AVERAGE RISK 7.1 - 11.0 MODERATE RISK >11.0 HIGH RISK Performed By: #### L IPID #### [facility] [address] [address] [address] Krystle Camilo Cholesterol [Mass/Vol] 211 mg/dL Critically high <=200 [facility] Comment on above: Performed By: #### L IPID #### [facility] [address] [place], [place] [address] Dr. Krystle Camilo Cholesterol in HDL [Mass/Vol] 52 mg/dL Normal 40-60 [facility] Comment on above: Performed By: #### L IPID #### [facility] [address] [place], [place] [address] Dr. Krystle Camilo Cholesterol in LDL [Mass/Vol] 143.0 mg/dL Normal [facility] Comment on above: Performed By: #### L IPID #### [facility] [address] [place] [address] Dr. Krystle Camilo Cholesterol.total/Cho lesterol in HDL [Mass ratio] 4.1 {ratio} Normal [facility] Comment on above: Performed By: #### L IPID #### [facility] [address] [place] [address] Dr. Krystle Camilo HDL NORMAL > or = 60 mg/dl - LO W CARDIOVASCULAR RISK <40 mg/dl - HIGH CARDIOVASCULAR RISK Normal [facility] Comment on above: Performed By: #### L IPID #### [facility] [address] [place] [address] Dr. Krystle Camilo LDL CALC NORMAL SEE BELOW Normal [facility] Comment on above: Result Comment: <100 mg/dl OPTIMAL 100 - 129 mg/dl NEAR OR ABOVE OPTIMAL 130 - 159 mg/dl BORDERLINE HIGH 160 - 189 mg/dl HIGH >190 mg/dl VERY HIGH Performed By: #### L IPID #### [facility] [address] [place] [address] Dr. Krystle Camilo Triglyceride [Mass/Vol] 80 mg/dL Normal <=150 [facility] Comment on above: Performed By: #### L IPID #### [facility] [address] [place] [address] Dr. Krystle Camilo VLDL CALC 16.0 mg/dL Normal [facility] Comment on above: Performed By: #### L IPID #### [facility] [address] [place] [address] Dr. Krystle Camilo Office Visit (Cardiology)on 02-13-2023 [...] Order; Status:Hold For - Scheduling,Retrospective Authorization; Requested for:[id number]; Radiologist to Determine Optimal Study : Y What are the patient's signs and symptoms? : dyspnea chest tightness Chest tightness, Dyspnea, Hyperlipidemia Lipid Panel; Status:Active - Retrospective Authorization; Requested for:[id number]; Class 1 obesity with body mass index (BMI) of 30.0 to 30.9 in adult Healthy Weight Tips; Status:Complete - Retrospective Authorization; Done: [id number] Some eating tips that can help you lose weight.; Status:Complete - Retrospective Authorization; Done: [id number] Dyspnea IO EKG Electrocardiogram- 12 Lead; Status:Complete; Done: [id number] SocHx: Never a smoker Tobacco Use Screening; Status:Complete; Done: [id number] Tobacco Use Screening; Status:Complete; Done: [id number] Patient Instructions Please bring all medicines, vitamins, [...] times, but not consistently, and that 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 Assessment: 1. 77-year-old with exertional shortness [...] long hist (more content not included)... Normal [facility] Tobacco Screening.on 023 Adult depression screening assessment No [facility] [address] DO Work Phone: Fall risk assessment a) No falls within the last year [facility] 250 DO Work Phone: Tobacco use status [facility] b) No [facility] DO Work Phone: ECHOCARDIO M/2D COMPLETEon 0 01-16-2023 ECHOCARDIO M/2D COMPLETE Patient: PILO GREGORY Exam Date: 01/16/2023 : 1945 Gender:F Ordering : DR ALEXANDER TOMLIN M.D. Admission #: [id number] Family : Order #: [id number] CLICK HERE TO VIEW EXAM ECHOCARDIOGRAM REPORT [...] M.D. on 01/16/2023 at 14:53 Normal [facility] B-Type Natriuretic Peptideon 01-04-2023 B-Type Natriuretic Peptide see note [employer] Other B-Type Natriuretic Peptide 582.0 pg/ml <=1,800.0 pg/ml [employer] Other BNPon 01-04-2023 Natriuretic peptide B (Bld) [Mass/Vol] 582.0 pg/mL Normal <=1,800.0 [facility] Comment on above: Performed By: #### B BEAN SNIPPER, BMP #### [facility] [address] [place] [address] Dr. Krystle Camilo CBC AUTO DIFFon 01-04-2023 BASO # 0.0 103/ul Normal 0.0-0.1 [facility] Comment on above: Performed By: #### C BC #### [facility] [address] [place] [address] Dr. Krystle Camilo Basophils/100 WBC (Bld) 0.7 % Normal 0.2-2.0 [facility] Comment on above: Performed By: #### C BC #### [facility] [address] [place] [address] Dr. Krystle Camilo EO # 0.4 103/ul Normal 0.0-0.7 [facility] Comment on above: Performed By: #### C BC #### [facility] [address] [place] [address] Dr. Krystle Camilo Eosinophils/100 WBC (Bld) 5.7 % Normal 0.9-7.0 [facility] Comment on above: Performed By: #### C BC #### [facility] [address] [place] [address] Dr. Krystle Camilo Erythrocyte distribution width (RBC) [Ratio] 12.9 % Normal 11.0-15.0 [facility] Comment on above: Performed By: #### C BC #### [facility] [address] [place] [address] Dr. Krystle Camilo Hematocrit (Bld) [Volume fraction] 44.3 % Normal 36.0-48.0 [facility] Comment on above: Performed By: #### C BC #### [facility] [address] [place] [address] Dr. Krystle Camilo Hemoglobin (Bld) [Mass/Vol] 15.0 g/dL Normal 12.0-16.0 [facility] Comment on above: Performed By: #### C BC #### [facility] [address] [place] [address] Dr. Krystle Camilo IG # 0.02 10e3/ul Normal 0.00-0.03 [facility] Comment on above: Performed By: #### C BC #### [facility] [address] [place] [address] Dr. Krystle Camilo IG % 0.3 % Normal 0.0-0.5 [facility] Comment on above: Performed By: #### C BC #### [facility] [address] [place] [address] Dr. Krystle Camilo LYMPH # 1.1 103/ul Critically low 1.2-3.8 [facility] Comment on above: Performed By: #### C BC #### [facility] [address] [place] [address] Dr. Krystle Camilo Lymphocytes/100 WBC (Bld) 18.1 % Critically low 20.5-60.0 [facility] Comment on above: Performed By: #### C BC #### [facility] [address] [place] [address] Dr. Krystle Camilo MANUAL DIFF REQ NO Normal [facility] Comment on above: Performed By: #### C BC #### [facility] [address] [place] [address] Dr. Krystle Camilo MCH (RBC) [Entitic mass] 30.9 pg Normal 26.7-34.0 [facility] Comment on above: Performed By: #### C BC #### [facility] [address] [place] [address] Dr. Krystle Camilo MCHC (RBC) [Mass/Vol] 33.9 g/dL Normal 29.9-35.2 [facility] Comment on above: Performed By: #### C BC #### [facility] [address] [place] [address] Dr. Krystle Camilo MCV (RBC) [Entitic vol] 91.3 fL Normal 81.0-99.0 [facility] Comment on above: Performed By: #### C BC #### [facility] [address] [place] [address] Dr. Krystle Camilo MONO # 0.7 103/ul Normal 0.3-0.8 [facility] Comment on above: Performed By: #### C BC #### [facility] [address] [place] [address] Dr. Krystle Camilo Monocytes/100 WBC (Bld) 11.7 % Normal 1.7-12.0 [facility] Comment on above: Performed By: #### C BC #### [facility] [address] [place] [address] Dr. Krystle Camilo NEUT # 3.9 103/ul Normal 1.4-6.5 [facility] Comment on above: Performed By: #### C BC #### [facility] [address] [place] [address] Dr. Krystle Camilo Neutrophils/100 WBC (Bld) 63.5 % Normal 43.0-75.0 [facility] Comment on above: Performed By: #### C BC #### [facility] [address] [place] [address] Dr. Krystle Camilo Platelet mean volume (Bld) [Entitic vol] 8.8 fL Critically low 9.5-13.5 [facility] Comment on above: Performed By: #### C BC #### [facility] [address] [place] [address] Dr. Krystle Camilo PLT 232 103/ul Normal 150-450 [facility] Comment on above: Performed By: #### C BC #### [facility] [address] [place] [address] Dr. Krystle Camilo RBC 4.85 106/ul Normal 4.20-5.40 [facility] Comment on above: Performed By: #### C BC #### [facility] [address] [place] [address] Dr. Krystle Camilo WBC 6.1 103/ul Normal 4.0-11.0 [facility] Comment on above: Performed By: #### C BC #### [facility] [address] [place] [address] Dr. Krystle Camilo PROF CHEM 8 (BAS METB)on Anion gap [Moles/Vol] 11.6 mmol/L Normal [facility] Comment on above: Performed By: #### B BEAN SNIPPER, BMP #### [facility] [address] [place] [address] Dr. Krystle Camilo Calcium [Mass/Vol] 9.5 mg/dL Normal 8.5-10.[address] [facility] Comment on above: Performed By: #### B BEAN SNIPPER, BMP #### [facility] [address] [address] [address] Krystle Camilo Chloride [Moles/Vol] 110 mmol/L Critically high 98-107 [facility] Comment on above: Performed By: #### B BEAN SNIPPER, BMP #### [facility] [address] [address] [address] Krystle Camilo CO2 [Moles/Vol] 29.7 mmol/L Normal 21.0-32.0 [facility] Comment on above: Performed By: #### B BEAN SNIPPER, BMP #### [facility] [address] [place] [address] Dr. Krystle Camilo Creatinine [Mass/Vol] 1.11 mg/dL Critically high 0.55-1.02 [facility] Comment on above: Performed By: #### B BEAN SNIPPER, BMP #### [facility] [address] [place] [address] Dr. Krystle Camilo EGFR-AF PALESTINIAN 58 mL/min/1.73m2 Critically low >=60 [facility] Comment on above: Performed By: #### B BEAN SNIPPER, BMP #### [facility] [address] [place] [address] Dr. Krystle Camilo EGFR-NON AF PALESTINIAN 48 mL/min/1.73m2 Critically low >=60 [facility] Comment on above: Performed By: #### B BEAN SNIPPER, BMP #### [facility] [address] [place] [address] Dr. Krystle Camilo Glucose [Mass/Vol] 77 mg/dL Normal 74-[address] [facility] Comment on above: Performed By: #### B BEAN SNIPPER, BMP #### [facility] [address] [place] [address] Dr. Krystle Camilo Potassium [Moles/Vol] 4.3 mmol/L Normal 3.5-5.1 [facility] Comment on above: Performed By: #### B BEAN SNIPPER, BMP #### [facility] [address] [place], [place] [address] Dr. Krystle Camilo Sodium [Moles/Vol] 147 mmol/L Critically high 136-145 [facility] Comment on above: Performed By: #### B BEAN SNIPPER, BMP #### [facility] [address] [place], [place] [address] Dr. Krystle Camilo Urea nitrogen [Mass/Vol] 16.0 mg/dL Normal 7.0-18.0 [facility] Comment on above: Performed By: #### B BEAN SNIPPER, BMP #### [facility] [address] [place], [place] [address] Dr. Krystle Camilo Urea nitrogen/Creatinine [Mass ratio] 14.4 mg/mg Normal [facility] Comment on above: Performed By: #### B BEAN SNIPPER, BMP #### [facility] [address] CHEST WO CONon [...] by: BARBARA MIRANDA Date: 2022-11-03 15:55 Normal [facility] MG MAMM SCREEN 3D ITALIA CADon 11-03-2022 MG MAMM SCREEN 3D ITALIA CAD Patient: PILO GREGORY Exam Date: 11/03/2022 : 1945 Gender:F Ordering : DR ALEXANDER TOMLIN M.D. Admission #: [id number] Family : Order #: [id number] CLICK HERE TO VIEW EXAM RADIOLOGY REPORT [...] breast cancer at age 59. LOCATION: [facility] BREAST COMPOSITION: Scattered areas fibroglandular density. [...] MD on 11/03/2022 at 15:57 Normal [facility] CT CHEST WO CONon 03-10-2022 CT [...] ROBER CHÁVEZ Date: 2022-03-10 10:46 Normal [facility] Vital Signs Date Time Vital Sign Value Performing Clinician Facility 07-08-2025 10:[id number] Body height 160.66 cm Alexander Tomlin MD Work Phone: [facility] 07-08-2025 10:34-040 Body mass index (BMI) [Ratio] 28.3 kg/m2 Alexander Tomlin MD Work Phone: [facility] 07-08-2025 10:34-0400 Body weight 73.02 kg Alexander Tomlin MD Work Phone: [facility] 07-08-2025 10:34-0400 Diastolic blood pressure 64 mm[Hg] Alexander Tomlin MD Work Phone: [facility] 07-08-2025 10:34-0400 Heart rate 65 /min Alexander Tomlin MD Work Phone: [facility] 07-08-2025 10:34-0400 Systolic blood pressure 114 mm[Hg] Alexander Tomlin MD Work Phone: [facility] 04-15-2025 10:34-0400 Body height 160.66 cm Alexander Tomlin MD Work Phone: [facility] 04-15-2025 10:34-0400 Body mass index (BMI) [Ratio] 27.2 kg/m2 Alexander Tomlin MD Work Phone: [facility] 04-15-2025 10:34-0400 Body weight 70.3 kg Alexander Tomlin MD Work Phone: [facility] 04-15-2025 10:34-0400 Diastolic blood pressure 68 mm[Hg] Alexander Tomlin MD Work Phone: [facility] 04-15-2025 10:34-0400 Heart rate 75 /min Alexander Tomlin MD Work Phone: [facility] 04-15-2025 10:34-0400 SaO2% (BldA) [Mass fraction] 97 % Alexander Tomlin MD Work Phone: [facility] 04-15-2025 10:34-0400 Systolic blood pressure 105 mm[Hg] Alexander Tomlin MD Work Phone: [facility] 12-23-2024 12:40-0500 Body height 161.3 cm Kathleen Castro MD Work Phone: [facility] 12-23-2024 12:40-0500 Body mass index (BMI) [Ratio] 28.39 kg/m2 Kathleen Castro MD Work Phone: [facility] 12-23-2024 12:40-0500 Body weight 73.85 kg Kathleen Castro MD Work Phone: [facility] 12-23-2024 12:40-0500 Diastolic blood pressure 60 mm[Hg] Kathleen Castro MD Work Phone: [facility] 12-23-2024 12:40-0500 Heart rate 62 /min Kathleen Castro MD Work Phone: [facility] 12-23-2024 12:40-0500 Systolic blood pressure 130 mm[Hg] Kathleen Castro MD Work Phone: [facility] 10-15-2024 09:21-0500 Body height 161.3 cm Cathy Eli [employer] CONSULTANT-EXEC[employer]IVE [employer]GRAMS DIRECTOR Work Phone: [facility] 10-15-2024 09:21-0500 Body mass index (BMI) [Ratio] 28.6 kg/m2 Cathy Eli [employer] CONSULTANT-EXECUTIVE [employer]LL[employer] PROGRAMS DIRECTOR Work Phone: [facility] 10-15-2024 09:21-0500 Body temperature 97.7 [degF] Cathy Eli [employer] CONSULTANT-EXECUTIVE [employer] PROGRAMS DIRECTOR Work Phone: [facility] 10-15-2024 09:21-0500 Body weight 74.39 kg Cathy Eli [employer] CONSULTANT-EXECUTIVE [employer] PROGRAMS DIRECTOR Work Phone: [facility] 10-15-2024 09:21-0500 Diastolic blood pressure 82 mm[Hg] Cathy Eli [employer] CONSULTANT-EXECUTIVE [employer] PROGRAMS DIRECTOR Work Phone: [facility] 10-15-2024 09:21-0500 Heart rate 67 /min Cathy Eli [employer] CONSULTANT-EXECUTIVE [employer] PROGRAMS DIRECTOR Work Phone: [facility] 10-15-2024 09:21-0500 Respiratory rate 16 /min Cathy Eli [employer] CONSULTANT-EXECUTIVE [employer] PROGRAMS DIRECTOR Work Phone: [facility] 10-15-2024 09:21-0500 SaO2% (BldA) [Mass fraction] 95 % Cathy Eli [employer] CONSULTANT-EXECUTIVE [employer] PROGRAMS DIRECTOR Work Phone: [facility] 10-15-2024 09:21-0500 Systolic blood pressure 133 mm[Hg] Cathy Eli [employer] CONSULTANT[employer]IVE [employer]AMS DIRECTOR Work Phone: [facility] 09-09-2024 14:27-0500 Body height 161.3 cm Kathleen Castro MD Work Phone: [facility] 09-09-2024 14:27-0500 Body mass index (BMI) [Ratio] 28.77 kg/m2 Kathleen Castro MD Work Phone: [facility] 09-09-2024 14:27-0500 Body weight 74.84 kg Kathleen Castro MD Work Phone: [facility] 09-09-2024 14:27-0500 Diastolic blood pressure 88 mm[Hg] Kathleen Castro MD Work Phone: [facility] 09-09-2024 14:27-0500 Heart rate 74 /min Kathleen Castro MD Work Phone: [facility] 09-09-2024 14:27-0500 Systolic blood pressure 144 mm[Hg] Kathleen Castro MD Work Phone: [facility] 08-02-2024 10:50-0400 Body height 160.66 cm [facility] 08-02-2024 10:50-0400 Body mass index (BMI) [Ratio] 28.9 kg/m2 [facility] 08-02-2024 10:50-0400 Body weight 74.61 kg [facility] 08-02-2024 10:50-0400 Diastolic blood pressure 80 mm[Hg] [facility] 08-02-2024 10:50-0400 Heart rate 70 /min [facility] 08-02-2024 10:50-0400 Respiratory rate 16 /min [facility] 08-02-2024 10:50-0400 SaO2% (BldA) [Mass fraction] 96 % [facility] 08-02-2024 10:50-0400 Systolic blood pressure 144 mm[Hg] [facility] 12-29-2023 11:03-0500 Body height 162.56 cm MD Alexander Tomlin Work Phone: [facility] 12-29-2023 11:03-0500 Body mass index (BMI) [Ratio] 28 kg/m2 MD Alexander Tomlin Work Phone: [facility] 12-29-2023 11:03-0500 Body weight 74.16 kg MD Alexander Tomlin Work Phone: [facility] 12-29-2023 11:03-0500 Diastolic blood pressure 90 mm[Hg] MD Alexander Tomlin Work Phone: [facility] 12-29-2023 11:03-0500 Heart rate 94 /min MD Alexander Tomlin Work Phone: [facility] 12-29-2023 11:03-0500 Systolic blood pressure 139 mm[Hg] MD Alexander Tomlin Work Phone: [facility] 04-07-2023 13:30-0400 Body height 162.56 cm Alexander Tomlin Other [facility] [employer] Other 04-07-2023 13:30-0400 Body mass index (BMI) [Ratio] 29.69 kg/m2 Alexander Tomlin Other [facility] [employer] Other 04-07-2023 13:30-0400 Body weight 78.47 kg Alexander Tomlin Other [facility] [employer] Other 04-07-2023 13:30-0400 Diastolic blood pressure 76 mm[Hg] Alexander Tomlin Other [facility] [employer] Other 04-07-2023 13:30-0400 Systolic blood pressure 161 mm[Hg] Alexander Tomlin Other [facility] [employer] Other 03-20-2023 16:02-0400 Diastolic blood pressure 82 mm[Hg] Alexander Tomlin Work Phone: [facility] [employer] 250 DO Work Phone: 03-20-2023 16:02-0400 Diastolic blood pressure 80 mm[Hg] Alexander Tomlin Work Phone: [facility] [employer] 250 DO Work Phone: 03-20-2023 16:02-0400 Systolic blood pressure 138 mm[Hg] Alexander Tomlin Work Phone: [facility] 250 DO Work Phone: 03-20-2023 15:32-0400 Body height 160.02 cm Alexander Tomlin Work Phone: [facility] 250 DO Work Phone: 03-20-2023 15:32-0400 Body mass index (BMI) [Ratio] 30.47 kg/m2 Alexander Tomlin Work Phone: [facility] 250 DO Work Phone: 03-20-2023 15:32-0400 Body surface area Derived from formula 1.81 m2 Alexander Tomlin Work Phone: [facility] 250 DO Work Phone: 03-20-2023 15:32-0400 Body weight 78.02 kg Alexander Tomlin Work Phone: [facility] 250 DO Work Phone: 03-20-2023 15:32-0400 Diastolic blood pressure 86 mm[Hg] Alexander Tomlin Work Phone: [facility] 250 DO Work Phone: 03-20-2023 15:32-0400 Heart rate 74 /min Alexander Tomlin Work Phone: [facility] 250 DO Work Phone: 03-20-2023 15:32-0400 Systolic blood pressure 144 mm[Hg] Alexander Tomlin Work Phone: [facility] 250 DO Work Phone: 02-27-2023 14:[phone] Alexander Tomlin Work Phone: [facility] 250 DO Work Phone: Comment on above: [facility] 04-17-2023 09:36-0400 Diastolic blood pressure 70 mm[Hg] Alexander Tomlin Work Phone: [facility] 250 DO Work Phone: 02-13-2023 09:36-0400 Systolic blood pressure 138 mm[Hg] Alexander Tomlin Work Phone: [facility] 250 DO Work Phone: 02-13-2023 09:35-0400 Body height 160.02 cm Alexander Tomlin Work Phone: [facility] 250 DO Work Phone: 02-13-2023 09:35-0400 Body mass index (BMI) [Ratio] 30.65 kg/m2 Alexander Tomlin Work Phone: [facility] 250 DO Work Phone: 02-13-2023 09:35-0400 Body surface area Derived from formula 1.82 m2 Alexander Tomlin Work Phone: [facility] 250 DO Work Phone: 02-13-2023 09:35-0400 Body weight 78.47 kg Alexander Tomlin Work Phone: [facility] 250 DO Work Phone: 02-13-2023 09:35-0400 Diastolic blood pressure 72 mm[Hg] Alexander Tomlin Work Phone: [facility] 250 DO Work Phone: 02-13-2023 09:35-0400 Heart rate 63 /min Alexander Tomlin Work Phone: [facility] 250 DO Work Phone: 02-13-2023 09:35-0400 Systolic blood pressure 130 mm[Hg] Alexander Tomlin Work Phone: [phone] [place] [address] [facility] 250 DO Work Phone: 01-02-2023 09:30-0500 Body height 162.56 cm Alexander Tomlin Other [place] [employer] [employer] Other 01-02-2023 09:30-0500 Body mass index (BMI) [Ratio] 29.52 kg/m2 Alexander Tomlin Other [place] [employer] Other 01-02-2023 09:30-0500 Body weight 78.02 kg Alexander Tomlin Other [place] [employer] Other 01-02-2023 09:30-0500 Diastolic blood pressure 70 mm[Hg] Alexander Tomlin Other [place] [employer] Other 01-02-2023 09:30-0500 SaO2% (BldA) [Mass fraction] 98 % Alexander Tomlin Other [place] [employer] Other 01-02-2023 09:30-0500 Systolic blood pressure 142 mm[Hg] Alexander Tomlin Other [place] [employer] Other Encounters Encounter Date Encounter Type Care Provider Facility Start: 08-05-2025 End: 08-05-2025 ambulatory [facility] Start: 07-08-2025 End: 07-08-2025 ambulatory Alexander Tomlin MD Work Phone: [facility] Work Phone: Start: 07-08-2025 End: 07-08-2025 Patient encounter procedure Alexander Tomlin MD -[facility] Work Phone: Start: 07-07-2025 End: 07-07-2025 ambulatory VIANEY HAQ [facility] Start: 05-27-2025 End: 05-27-2025 ambulatory [facility] Start: 05-21-2025 Non-patient / Non-visit Alfred funk MD -[facility] Work Phone: Start: 05-19-2025 End: 05-19-2025 ambulatory LYNDSEY CARRASQUILLO [facility] Start: 05-19-2025 End: 05-19-2025 ambulatory ALFRED STERN [facility] Start: 05-14-2025 Non-patient / Non-visit Abraham FRIEDMAN -[facility] Work Phone: Start: 04-24-2025 End: 04-24-2025 Bamboo flowsheet Choco Landaverde MD Work Phone: [facility] Start: 04-24-2025 End: 04-24-2025 Bamboo flowsheet Choco Landaverde MD Work Phone: [facility] Start: 04-24-2025 End: 04-24-2025 ambulatory CHOCO LANDAVERDE Not Available Start: 04-24-2025 End: 04-24-2025 Office outpatient visit 10 minutes Choco Landaverde MD Work Phone: [facility] Comment on above: Seborrheic keratosis (Primary Dx); Actinic keratosis Start: 04-15-2025 End: 04-15-2025 Patient encounter procedure Alexander Tomlin MD -[facility] Work Phone: Start: 04-10-2025 Non-patient / Non-visit Lory Rai CMA -[facility] Work Phone: Start: 03-26-2025 End: 03-26-2025 ambulatory ABRAHAM BLACKMON [facility] Start: 03-16-2025 [facility] Start: 03-15-2025 Evaluation and management of inpatient [facility] Start: 03-14-2025 Evaluation and management of inpatient [facility] Start: 03-14-2025 Evaluation and management of inpatient [facility] Start: 03-13-2025 Evaluation and management of inpatient LINDA DAVIS [facility] Start: 03-12-2025 Evaluation and management of inpatient [facility]LEN[facility] Start: 03-12-2025 Evaluation and management of inpatient [facility]AYLENE [facility] Start: 03-12-2025 End: 03-20-2025 Evaluation and management of inpatient ROB LOZANO [facility] Start: 03-12-2025 End: 03-12-2025 ambulatory UNKNOWN PROVIDER Facility:[facility] Start: 01-30-2025 End: 01-30-2025 Marshall Landaverde MD Work Phone: [facility] Start: 01-30-2025 End: 01-30-2025 Marshall Landaverde MD Work Phone: [facility] Start: 01-30-2025 End: 01-30-2025 Office outpatient visit 15 minutes Choco Landaverde MD Work Phone: [facility] Comment on above: Seborrheic keratosis (Primary Dx); Xerosis cutis; Lentigines; Actinic keratosis; Neoplasm of unspecified behavior of bone, soft tissue, and skin; Capillary angioma; Sebaceous hyperplasia of face; Seborrheic keratosis, inflamed; Personal history of other malignant neoplasm of skin Start: 01-30-2025 End: 01-30-2025 ambulatory CHOCO LANDAVERDE Not Available Start: 12-23-2024 End: 12-23-2024 Office outpatient visit 15 minutes Kathleen Castro MD Work Phone: [facility] Comment on above: CRLD (chronic restri ctive lung disease) (Primary Dx); SOTO (dyspnea on exertion); Stage 3a chronic kidney disease (Multi); Never smoked cigarettes; Mixed hyperlipidemia; Body mass index (BMI) 28.0-28.9, adult Start: 12-23-2024 End: 12-23-2024 ambulatory [facility] Start: 12-10-2024 End: 12-10-2024 Office outpatient visit 15 minutes James Mo DO Work Phone: [facility] Comment on above: Sarcoidosis (Primary Dx) Start: 12-10-2024 End: 12-10-2024 ambulatory JAMES MO [facility] Start: 11-26-2024 End: 11-26-2024 ambulatory CATHY BENITEZ [facility] Start: 11-26-2024 End: 11-26-2024 Subsequent hospital visit by physician Gisell Saldana1 Pft Rm1 [facility] Comment on above: Sarcoid Start: 10-15-2024 End: 10-15-2024 Office consultation new/estab patient 60 min [employer] CONSULTANT-EXECUTIVE [employer] DIRECTOR Work Phone: [facility] Comment on above: Sarcoid (Primary Dx) ; Shortness of breath Start: 10-15-2024 End: 10-15-2024 ambulatory ALEXANDER TOMLIN [facility] Start: 09-09-2024 End: 09-09-2024 Office outpatient visit 25 minutes Kathleen Castro MD Work Phone: [facility] Comment on above: SOTO (dyspnea on exer tion); Mixed hyperlipidemia; Never smoked cigarettes; Body mass index (BMI) 28.0-28.9, adult; CRLD (chronic restrictive lung disease); Personal history of COVID-19; Stage 3a chronic kidney disease (Multi) Start: 09-09-2024 End: 09-09-2024 ambulatory [facility] Start: 09-05-2024 End: 09-05-2024 Bamboo flowsheet Choco Landaverde MD Work Phone: [facility] Start: 09-05-2024 End: 09-05-2024 Bamboo flowsheet Choco Landaverde MD Work Phone: [facility] Start: 09-05-2024 End: 09-05-2024 Office outpatient visit 25 minutes Choco Landaverde MD Work Phone: [facility] Comment on above: Other atopic dermati tis (Primary Dx); Bug bite without infection, initial encounter; Actinic keratosis Start: 09-05-2024 End: 09-05-2024 ambulatory CHOCO LANDAVERDE Not Available Start: 08-12-2024 Patient encounter procedure Alexander Tomlin MD Work Phone: [facility] Start: 08-02-2024 End: 08-02-2024 ambulatory [facility] Work Phone: Start: 08-02-2024 End: 08-02-2024 Patient encounter procedure [facility] Physician [facility] Work Phone: Start: 07-04-2024 Non-patient / Non-visit [facility] Work Phone: Start: 01-22-2024 End: 01-22-2024 ambulatory Dayanna [facility] Facility:[facility] Start: 01-22-2024 End: 01-22-2024 ambulatory MD Alexander Tomlin Work Phone: [facility] Work Phone: Start: 01-22-2024 End: 01-22-2024 Departed Referred MD Alexander Tomlin Work Phone: [facility] Start: 01-01-2024 Non-patient / Non-visit MD Bettie Tomlin Work Phone: [facility] Work Phone: Start: 12-29-2023 End: 12-29-2023 Patient encounter procedure MD Alexander Tomlin Work Phone: [facility] Physician [facility] Work Phone: Start: 04-07-2023 End: 04-07-2023 ambulatory Alexander Tomlin Other [facility] [employer] Other Start: 04-07-2023 Patient encounter procedure Alexander Tomlin [facility] Start: 03-28-2023 Chart Update Alexander Tomlin Work Phone: [facility] 250 DO Work Phone: Start: 03-24-2023 Chart Update Alexander Tomlin Work Phone: [facility] 250 DO Work Phone: Start: 03-24-2023 ambulatory Kathleen Sanchezwenceslaoemmie Facility: [id number] Start: 03-02-2023 Chart Update Alexander Tomlin Work Phone: [facility] 250 DO Work Phone: Start: 03-01-2023 ambulatory Kathleenangie Sanchezmichell0emmie Facility: [id number] Start: 02-27-2023 End: 02-28-2023 ambulatory [facility] Facility: Start: 02-14-2023 End: 02-14-2023 ambulatory Alexander Tomlin Other [employer] Other Start: 02-14-2023 Telephone encounter Alexander Tomlin [facility] Start: 02-13-2023 Office consultation new/estab patient 60 min Alexander Tomlin Work Phone: [facility] 250 DO Work Phone: Start: 02-13-2023 ambulatory MD KATHLEEN CASTRO Facilit y: Start: 01-18-[address] Alexander Tomlin Facility:[facility] Start: 01-17-2023 End: 01-17-2023 ambulatory Alexander Tomlin Other [employer] Other Start: 01-17-2023 Telephone encounter Alexander Tomlin [facility] Start: 01-16-2023 End: 01-17-[address] ALEXANDER TOMLIN Facility: Start: 01-05-2023 End: 01-05-2023 ambulatory Alexander Tomlin Other [employer] Other Start: 01-05-2023 Telephone encounter Alexander Tomlin [facility] Start: 01-04-2023 End: 01-05-[address] ALEXANDER TOMLIN Facility:[facility] Start: 01-02-2023 End: 01-02-2023 ambulatory Alexander Tomlin Other [employer] Other Start: 01-02-2023 Office outpatient vi sit 15 minutes Alexander Tomlin [facility] Start: 11-03-2022 End: 11-04-2022 ambulatory DAYANNA LOBO . Facility: Start: 03-10-2022 End: 03-11-2022 ambulatory DAYANNA LOBO . Facility:[facility] Start: 10-17-2018 End: 10-17-2018 Patient encounter procedure EMILY YIN [facility] Procedures Date Procedure Procedure Detail Performing Clinician Start: 05-19-2025 Follow-up visit KAYLENE ARNOLD Start: 04-24-2025 CRYOTHERAPY SKIN LESION Choco Landaverde MD Work Phone: Start: 03-26-2025 Follow-up visit KAYLENE ARNOLD Start: 01-30-2025 SKIN / NAIL BIOPSY Jose Landaverde MD Work Phone: Start: 01-30-2025 End: 01-30-2025 CRYOTHERAPY SKIN LESION Choco Landaverde MD Work Phone: Start: 11-26-2024 Pressurized/nonpress urized inhalation treatment [facility]itez [facility] Work Phone: Start: 09-09-2024 Ecg routine ecg [...] DERM [address] [place] [address] Choco Landaverde MD [address] [place] [address] [facility] Start: 06-30-2025 Influenza vaccination Influenza Vaccine (Season Ended) [facility] Start: 01-30-2025 End: 01-30-2025 Patient encounter procedure 01/30/2025 11:30 AM EDT Office Visit [facility] [address] [place] [address] Choco Landaverde MD [address] [place] [address] Arrived [facility] Comment on above: Arrived Start: 12-24-2024 End: 12-10-[address] chest high resolution Imaging Routine Sarcoidosis Expected: 12/24/2024, Expires: 12/10/2025 [facility] Service Area Work Phone: Comment on above: Expected: 12/24/2024, Expires: Start: 12-23-2024 End: 12-23-2024 Patient encounter procedure 12/23/2024 12:30 PM EST Office Visit [facility] [address] [facility] [address] [place] [address] Kathleen Castro MD [address] [facility] [address] [place] [address] [facility] Start: 12-10-2024 End: 12-10-2024 Telemedicine consultation with patient 12/10/2024 8:40 AM EST Telemedicine [address] [place] [address] [place] [address] [place] [address] [facility] Start: 11-28-2024 End: 11-28-2024 Patient encounter procedure 11/28/2024 1:30 PM EST Office Visit [facility] [address] [place] [phone] Choco Landaverde MD [address] [place] [address] [facility] Start: 11-25-2024 End: 11-25-2024 Patient encounter procedure 11/25/2024 11:20 AM EST Office Visit [facility] [address] [place] [phone] [place] [address] [place] [address] [facility] Start: 10-15-2024 End: 10-15-2025 Calcitriol [Mass/volume] in Serum or Plasma [facility] Work Phone: Comment on above: Expected: 10/15/2024 (Approximate), Expi res: 10/15/2025 Start: 10-15-2024 End: 10-15-2025 Complete Pulmonary Function Test Pre/Post Bronchodilator (Spirometry Pre/Post/DLCO/Lung Volumes) Complete Pulmonary Function Test Pre/Post Bronchodilator (Spirometry Pre/Post/DLCO/Lung Volumes) PFT Routine Sarcoid Expected: 10/15/2024 (Approximate), Expires: 10/15/2025 [facility] Service Area Work Phone: Comment on above: Expected: 10/15/2024 (Approximate), Expi res: 10/15/2025 Start: 09-09-2024 End: 09-09-2025 Erythrocyte sedimentation rate Sedimentation Rate Lab Routine SOTO (dyspnea on exertion) CRLD (chronic restrictive lung disease) Expected: 09/09/2024 (Approximate), Expires: 09/09/2025 [facility] Work Phone: Comment on above: Expected: 09/09/2024 (Approximate), Expi res: 09/09/2025 Start: 09-09-2024 End: 09-09-2025 Natriuretic peptide B [Mass/volume] in Blood B-Type Natriuretic Peptide Lab Routine SOTO (dyspnea on exertion) Expected: 09/09/2024 (Approximate), Expires: 09/09/2025 [facility] Service Area Work Phone: Comment on above: Expected: 09/09/2024 (Approximate), Expi res: 09/09/2025 Start: 09-05-2024 End: 09-05-2024 Patient encounter procedure 09/05/2024 9:20 AM EST Office Visit [facility] [address] [place] [address] Choco Landaverde MD [address] [place] [address] Arrived [facility] Comment on above: Arrived Start: 06-30-2024 COVID-19 Vaccine ( season) COVID-19 Vaccine ( season) [facility] Start: 06-30-2024 COVID-19 Vaccine ( season) COVID-19 Vaccine ( season) [facility] Start: 06-30-2024 Influenza vaccination Influenza Vaccine (#1) [facility] Start: 03-20-2023 FUV, Provider: Kathleen Castro, Status: Pen, Time: 3:30 PM FUV, Provider: Kathleen Castro, Status: Pen, Time: 3:30 PM -[facility] 250 DO Work Phone: Start: 03-01-2023 STRESS NUC, Provider: [place] [facility] NUCLEAR ,[id number], Status: Pen, Time: 8:00 AM STRESS NUC, Provider: [place] [facility] NUCLEAR ,[id number], Status: Pen, Time: 8:00 AM -[facility] 250 DO Work Phone: Start: 2021 RSV High Risk: (Elderly (60+) or Population) (1 - 1-dose 75+ series) RSV High Risk: (Elderly (60+) or Population) (1 - 1-dose 75+ series) [facility] Start: 1996 Zoster Vaccines (1 of 2) Zoster Vaccines (1 of 2) [facility] Start: 1968 DTaP/Tdap/Td Vaccines (1 - Tdap) DTaP/Tdap/Td Vaccines (1 - Tdap) [facility] Start: 1965 Urine screening for protein CKD: Urine Protein Screening [facility] Start: 1964 Hepatitis C screening Hepatitis C Screening [facility] Start: 1946 Lipid panel Lipid Panel [facility] Start: 1946 Medicare Annual Wellness Visit Medicare Annual Wellness Visit (AWV) [facility] Start: 1946 Screening for osteoporosis Bone Density Scan [facility] Dermatopathology exam Dermatopat hology exam Pathology and Cytology Timed Neoplasm of unspecified behavior of bone, soft tissue, and skin Release Upon Ordering for 1 Occurrences starting 01/30/2025 [facility] Work Phone: Comment on above: Release Upon Ordering for 1 Occurrences starting 01/30/2025 Urine culture [facility] Immunizations Immunization Date Immunization Notes Care Provider Fa cili 10-25-2021 Pfizer-BioNTech COVI D-19 Vacc 30 MCG/0.3ML Intramuscular Suspension Alexander Tomlin Work Phone: [facility] 250 DO Work Phone: 03-25-2021 Pfizer-BioNTech COVI D-19 Vacc 30 MCG/0.3ML Intramuscular Suspension Alexander Tomlin Work Phone: [facility] 03-01-2021 Pfizer-BioNTech COVI D-19 Vacc 30 MCG/0.3ML Intramuscular Suspension Alexander Tomlin Work Phone: [facility] 10-25-2019 pneumococcal polysaccharide vaccine, 23 valmp Tomlin Work Phone: [facility] 10-08-2016 influenza virus vacc ine, unspecified formulation MD Alexander Tomlin Work Phone: [facility] 10-06-2016 pneumococcal conjuga te vaccine, 13 valmp Tomlin Work Phone: [facility] 04-09-2015 pneumococcal conjuga te vaccine, 13 angeli Tomlin Work Phone: [facility] 250 DO Work Phone: 08-31-2008 pneumococcal polysaccharide vaccine, 23 valmp Tomlin Work Phone: [place] [address] DO Work Phone: Payers Date Payer Category Payer Medicare supplementa l policy (as second payer) GENERIC MEDICARE SUPPLEMENT [id number] 2024 Self-pay [id number] 2023 Private Health Insurance [facility] [employer] [id number] 2011 Medicare [id number] 1959 Medicare [id number] 2.16.840.1.455743.19 1959 Unknown [id number] 2.16.840.1.156544.19 1946 Unknown [id number] 2.16.840.1.636141.3.579. 2.356 1946 Unknown [id number] 2.16.840.1.339059.3.579. 2.593 1946 Unknown [id number] 2.16.840.1.649528.3.579. 2.593 1946 Unknown [id number] 2.16.840.1.218711.3.579. 2.593 1946 Unknown [id number] 2.16.840.1.746211.3.579. 2.593 1946 Unknown [id number] 2.16.840.1.449187.3.579. 2.593 1946 Unknown [id number] 2.16.840.1.926682.3.579. 2.593 1946 Unknown [id number] 2.16.840.1.953149.3.579. 2.593 1946 Unknown [id number] 2.16.840.1.564648.3.579. 2.1068 1946 Unknown [id number] 2.16.840.1.182678.3.579. 2.1068 1946 Unknown [id number] 2.16.840.1.670096.3.579. 2.1245 1946 Unknown [id number] 2.16.840.1.049526.3.579. 2.1244 1946 Unknown [id number] 2.16.840.1.358797.3.579. 2.1244 1946 Unknown [id number] 2.16.840.1.166363.3.579. 2.1244 1946 Unknown [id number] 2.16.840.1.185018.3.579. 2.1244 1946 Unknown [id number] 2.16.840.1.637348.3.579. 2.1246 1946 Unknown [id number] 2.16.840.1.812986.3.579. 2.732 1946 Unknown [id number] 2.16.840.1.354055.3.579. 2.1259 1946 Unknown [id number] 2.16.840.1.181928.3.579. 2.1259 1946 Unknown [id number] 2.16.840.1.659215.3.579. 2.1259 Unknown Unknown [id number] Unknown [id number] 2.16.840.1.556830.3.579. 2.531 Social History Date Type Detail Facility Unknown if ever smoked [employer] Other Start: 11-28-2023 End: 04-24-2025 Sex Assigned At [facility] Start: 11-28-2023 End: 04-24-2025 Alcohol ingestion Alcohol ingestion [facility] Comment on above: couple weekly whiske y; coffee daily; Start: 1945 Sex Assigned At Female F [facility] Start: 05-04-2023 End: 09-09-2024 Tobacco smoking status NHIS Never smoked tobacco [facility] Start: 05-04-2023 End: 09-09-2024 Tobacco use and exposure Smokeless tobacco non-user [facility] Start: 1945 Sex assigned at Not on file N S [facility] Start: 09-09-2024 End: 12-23-2024 Alcoholic beverage intake Current drinker of alcohol (finding) [facility] Work Phone: Start: 08-30-2024 End: 12-23-2024 Exposure to SARS-CoV-2 (event) Not sure [facility] Start: 11-30-2024 End: 12-10-2024 Exposure to SARS-CoV-2 (event) Unable to assess [facility] Work Phone: Start: 01-30-2025 End: 04-24-2025 Alcoholic beverage intake [facility] Tobacco smoking stat [facility] Unknown if ever smoked [facility] Work Phone: Sex Female (finding) [facility] Clinical Notes 01-02-2023 to 05-19-2025 Choco Landaverde MD - 04/24/2025 1:20 PM EDT Note Date & Type Note Facility 05-19-2025 Note [facility] 05-19-2025 Note [facility] 04-24-2025 History of Present illness Narrative Follow [...] ACTINIC KERATOSIS (3) Glabella, Left Forehead, Left Muslim Erythematous scaly papules Patient was counseled regarding [...] limited to risks of scarring, darker or auto dealer pigmentary changes, recurrence, incomplete removal and infection. [...] skin lesion - Glabella, Left Forehead, Left Muslim Next Visit: as scheduled documented in this encounter [facility] 04-15-2025 Evaluation note Diagnosis Onset Date Resolution Acute combined systolic (congestive) and diastolic (congestive) heart failure acute April 15, 2025 10:32am Chronic systolic CHF (congestive heart failure) acute April 15, 2025 10:32am NSTEMI (non-ST elevated myocardial infarction) acute March 10:32am Sarcoidosis acute April 15 10:32am [facility] Work Phone: 1(121) 626-556405-28-20[address] [facility] 03-20-2025 NoteReceived referral for cholelithiasis - currently admitted. Called patient, no answer. [facility] to call office to schedule consult with Dr. Peck regarding gallbladder/cholelithiasis.[facility]05-22-2025 Note [facility]05-22-[address] NoteUnSt[address] [facility]05-22-[address] [facility]UnSt[facility]05-22-2025 Note [facility]05-21-[address] [facility]UnSt[address] [facility]05-21-[address] [facility]Un[facility]05-21-2025 Note [facility]05-21-[address] [facility]Un[facility] [facility]05-21-[address] [facility]Un[facility] [facility]05-21-2025 Note- see belowUnSt. Anthony's Hospital05-21-2025 Note- new onset EF 35% on TTE 5/15 - GDMT titrated as tolerated - Currently net negative 7.4L - further planning from cardiology service - LifeVest prior to dischargeMer[facility]05-21-2025 Note- unlikely contributing to current clinical presentationMercy Health Willard Hospital05-21-2025 Note- human metapneumovirus positive 03/12 - was placed on ceftriaxone 1 g for potential superimposed bacterial pneumonia in ICU - currently no growth on sputum culture - weaned off steroidsUnSt. Anthony's Hospital05-21-2025 Note- see aboveMercy Health Willard Hospital05-21-[address] NoteUnSt. Anthony's Hospital05-21-[address] NoteUnSt. [facility] Hospital05-21-2025 Note Formulation Chemist spoke with Carlyn in registration to have patient's secondary insurance added. Carlyn states that the [employer] has already been added. Formulation Chemist will notify patient/family.[facility]05-21-2025 Note [facility]05-21-[address] NoteUnSt. [facility] Hospital05-21-2025 NoteMercy Health [facility]ard Hospital05-20-2025 Note [facility]05-20-2025 Note- see belowMercy Health Willard Hospital05-20-2025 Note- human metapneumovirus positive 03/12 - was placed on ceftriaxone 1 g for potential superimposed bacterial pneumonia in ICU - currently no growth on sputum culture - wean steroidsUnSt. Anthony's Hospital05-20-[address] NoteUnSt[address] [facility] Hospital05-20-[address] NoteUnSt[address] [facility] 03-18-2025 Note- see aboveMercy Health Willard Hospital05-20-2025 Note- new onset EF 35% on TTE 5/15 - GDMT titrated as tolerated - further planning from cardiology service - LifeVest prior to dischargeUnSt. Anthony's Hospital05-20-2025 Note- unlikely contributing to current clinical presentationUnSt. 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 Will check back as able. Sita Newman, PTAUnSt. Anthony's Hospital05-20-2025 NoteUnSt. Anthony's Hospital05-20-[address] NoteUnSt. [facility] Hospital 03-18-20[address] NoteUnSt. Anthony's Hospital05-19-2025 NoteSW advised that family is requesting SNF. No family at bedside. SW provided list to RN to give to family when they arrive later tonight. SW following. [facility]05-19-2025 Note- unlikely contributing to current clinical presentationMercy Health Willard Hospital05-19-2025 Note- human metapneumovirus positive 03/12 - was placed on ceftriaxone 1 g for potential superimposed bacterial pneumonia in ICU - currently no growth on sputum culture - wean steroidsUnSt. Anthony's Hospital05-19-2025 Note- see above [facility]05-19-2025 NoteMercy Health Willard Hospital05-19-2025 NoteMercy Health Willard Hospital05-19-2025 Note- see belowMercy Health Willard Hospital05-19-2025 Note- new onset EF 35% on TTE 03/13 - GDMT as tolerated - further planning from cardiology service - LifeVest prior to dischargeUnSt. Anthony's Hospital05-19-2025 Note [facility]05-19-[address] NoteUnSt[address] Anthony's Hospital05-19-[address] NoteUnSt[address] [facility]'s Hospital05-19-2025 Note [facility]05-19-2025 NoteMercy Health Willard Hospital05-19-[address] NoteUnSt. Anthony's Hospital05-19-2025 Note [facility]05-19-[address] NoteUnSt. Anthony's Hospital05-18-2025 Note-PT/OT - likely deconditioning from ICU - patient also having falls during this hospitalization - patient denies head trauma however obtain CT head as patient is mildly confused todayUnSt. Anthony's Hospital05-18-2025 Note- human metapneumovirus positive 03/12 - was placed on ceftriaxone 1 g for potential superimposed bacterial pneumonia in ICU - currently no growth on sputum culture - wean steroidsUnSt. Anthony's Hospital05-18-[address] NoteUnSt[address] [facility]'s Hospital05-18-[address] NoteUnSt[address] [facility] 03-16-2025 Note- see aboveUnSt. Anthony's Hospital05-18-2025 Note- unlikely contributing to current clinical presentationUnSt. Anthony's Hospital05-18-2025 Note- patient underwent cardiac catheterization 03/14 - LCx 90% stenosis s/p TRIP x 2 - subacute total occlusion RCA s/p TRIP - DAPT with Plavix 1 year and aspirin lifelongUnSt. Anthony's Hospital05-18-2025 Note- new onset EF 35% on TTE 03/13 - GDMT as tolerated - further planning from cardiology serviceUnSt. Anthony's Hospital 03-16-2025 Note- see belowMercy Health Willard Hospital05-18-2025 Note [facility]05-18-[address] NoteUnSt. Anthony's Hospital05-17-2025 NoteMercy Health Willard Hospital05-17-2025 Note- see aboveMercy Health Willard Hospital05-17-2025 Note- unlikely contributing to current clinical presentationUnSt. Anthony's Hospital05-17-2025 Note- new onset EF 35% on TTE 03/13 - GDMT as tolerated - further planning from cardiology serviceUnSt. Anthony's Hospital 03-15-2025 Note- required intubation with mechanical ventilation with extubation 03/13 - currently on 2 L - wean oxygen as able - appears to be primarily driven by cardiomyopathy however viral pneumonia contributing factor is - pulm consulted for ICU follow-upMercy Health Willard Hospital05-17-2025 Note- human metapneumovirus positive 03/12 - was placed on ceftriaxone 1 g for potential superimposed bacterial pneumonia in ICU - currently no growth on sputum culture - wean steroidsUnSt. Anthony's Hospital05-17-2025 Note- see below [facility]05-17-2025 Note-PT/OT -Check [facility]05-17-2025 Note- patient underwent cardiac catheterization 03/14 - LCx 90% stenosis s/p TRIP x 2 - subacute total occlusion RCA s/p TRIP - DAPT with Plavix 1 year and aspirin lifelongMercy Health [facility]ard Hospital05-17-2025 NoteMercy Health [facility]ard Hospital05-17-2025 Note [facility]05-17-2025 NoteMercy Health Willard Hospital05-16-2025 NoteMercy Health [facility] Hospital05-16-2025 Note [facility]05-16-2025 NoteMercy Health Willard Hospital05-15-2025 Note03/13/25 0955 Vent Information Vent ID extubate to 3L NC, pt able to vocalize O2 Delivery Method Nasal cannulaMercy Health Willard Hospital05-15-2025 NoteMercy Health Willard Hospital05-15-2025 NoteProblem: Respiratory - Adult Goal: Achieves optimal ventilation and oxygenation Outcome: ProgressingMercy Health Willard Hospital05-15-2025 NoteMercy Health [facility] Hospital05-14-2025 NoteMercy Health [facility]ard Hospital 03-12-2025 NoteMercy Health Willard Hospital05-14-2025 NoteMercy Health Willard Hospital04-03-2025 History of Present illness Narrative* Choco Landaverde MD - 01/30/2025 11:30 AM EDT Images from the original note [...] Right arm Examined Wearing fingernail and toenail norwegian. Denies dark streaking Left arm Examined Hands [...] benign pigmented lesions that occur on sun-exposed andsun-damaged skin. No treatment is necessary. Recommended regular use of broad spectrum sunscreen SPF 30 or higher 4. Actinic keratosis (6) Left Ala Nasi, Left Buccal Cheek, Left Forehead, Left Frontal Scalp, Left Nasal Sidewall, Right [place] Erythematous scaly papules Patient was counseled regarding these sun-induced growths that can develop into squamous cell carcinoma if left untreated. Discussed treatment with cryotherapy. It was emphasized that any treated lesions that fail to resolve should be re- evaluated. Cryotherapy performed today; see procedure note Diagnosis: Actinic keratosis Indication: Precancerous Location: see skin exam Consent: Verbal consent was obtained and risks were discussed, including, but not limited to risks of scarring, darker or auto dealer pigmentary changes, recurrence, incomplete removal and infection. [...] Frontal Scalp, Left Nasal Sidewall, Right [place] 5. Neoplasm of unspecified behavior of bone, [...] keratosis, inflamed Left Lower Leg - Anterior [place] and brown stuck on verrucous scaly papule [...] office if abnormal redness or tenderness develops atthe treatment site. Cryotherapy today, see procedure note. Diagnosis: Inflamed seborrheic keratosis Indication: Inflamed Consent: Verbal consent was obtained and risks were discussed, including, but not limited to risks of scarring, darker or auto dealer pigmentary changes, recurrence, incomplete removal and infection. [...] 1 year skin check documented in this encounterUniversity Health Lakewood Medical [id number] History of Present illness Narrative* Kathleen Castro MD - 12/23/2024 12:30 PM EST This is a follow-up from August 2024. Subjective : She just returned from [place]. While she was there she was treated for bronchitis, she is finishing up her steroids and antibiotics. She feels better on the steroids. She had 1 visit with broacher, she is to have a high-resolution CT of the chest, and follow-upafter that. She denies chest pressure tightness heaviness [...] to Lexiscan Myoview which reports normal perfusion LVEFof 51% transient ischemic dilatation of 0.[address] chest as part of coronary calcium score February 2023-calcified and noncalcified enlarged bilateral hilar and subcarinal lymph nodes, left main 0 LAD 3, left circumflex 35 RCA 15 total 53 ascendingthoracic aorta 3.5 cm calcium score 48 percentile for age gender and race 12. CT chest June 2024-innumerable lung nodules and small patchy opacities within the lungs, stable compared to February 2024, and increased compared to February 2022 mediastinal and bilateral hilar adenopathy, stable 13. PFTs September 2023-no response to bronchodilators DLCO 59% predicted when corrected to alveolarventilation DLCO probably improved, due to poor current [...] further questions arise, Sincerely, Kathleen Castro MD [facility] Follow up : PRN Provider Attestation - Scribe documentation Scribe Attestation By signing my name below, I, Lacey Corral LPN , Scribe attest that this documentation has been prepared under the direction and in the presence of Kathleen Castro MD. All medical record entries made by the Scribe were at my direction and personally dictated by me. Ihpedrito reviewed the chart and agree that the record accurately reflects my personal performance of the history, physical exam, discussion and plan. documented in this encounterUnProMedica Memorial Hospital Work Phone: 1(481) 978-508102-24-2025 Instructions* Patient Instructions* Lacey Ladd LPN - 12/23/2024 12:30 PM [...] ordered as needed only [facility] Work Phone: 1(333) 484-455502-11-2025 History of Present illness Narrative* James Mo, - 12/10/2024 8:40 AM EST Images from the original note were not included. Patient: Pilo Gregory [id number] : 1945 -- AGE 78 y.o. Provider[place] [facility] [place] Date: 10/15/24 [facility] New Visit Note HISTORY OF PRESENT ILLNESS The patient's referring provider is: No ref. provider found HISTORY OF PRESENT ILLNESS Pilo Gregory is a 78 y.o. female with no significant past medical history, who is a never smoker,who presents to a [facility] for an initial evaluation for shortness of breath. The patient reports that she has sarcoidosis and was told that she has nodules on her chest. I am unable to locate any prior radiology imaging. I have ordered a high-resolution CT scan. The patient will complete this when she returns to [place] next week. Right now she is in [facility]. We will shortly see her thereafter and schedule her for any necessary testing. This was a telephone visit. ALLERGIES AND MEDICATIONS ALLERGIES No Known Allergies MEDICATIONS Current Outpatient Medications Medication Sig Dispense Refill fluticasone (Flonase) 50 mcg/actuation nasal spray Administer 1 spray into each nostril once daily.Shake gently. Before first use, prime pump. After [...] medical history, who is a never smoker, whopresents to a [facility] for an initial [...] have any questions please call the office [phone] Thank you for visiting the Pulmonary clinic today! documented in this encounterBelle[facility] Hospital Work Phone: 1(289) 871-735712-17-2024 History of Present illness Narrative* Cathy Benitez APRN-EXECUTIVE WELLNESS PROGRAMS DIRECTOR - 10/15/2024 9:20 AM EST Images from the original note were not included. Patient: Pilo Gregory [id number] : 1945 -- AGE 78 y.o. Provider: Cathy Benitez APRN- [facility] [place] [facility] Service Date: 10/15/24 [facility] New Visit Note HISTORY OF PRESENT ILLNESS The patient's referring provider is: No ref. provider found HISTORY OF PRESENT ILLNESS Pilo Gregory is a 78 y.o. female with no significant past medical history, who is a never smoker,who presents to a [facility] for an initial evaluation for shortness of breath. I have independently interviewed and examined the patient in the office and reviewed available records. Current History HPI: On today's visit, the patient reports coming for a second opinion. She c/o having shortness of breath all the time, fatigue and wheezing since having COVID in 2020. Was seeing Briar Cutter at [place] who she states started her on Symbicort with no improvement, Symbicort made her throat hoarse. She has since stopped using a long time ago. She has multiple lung nodules, some are calcified, seen Dr. Dayanna Lobo broacher at [place],1.5cm largest nodule bronch was non-diagnostic. Recommend to [...] recurrent infections, or lung disease as a child.He had no previous lung hx, never on [...] IMMUNIZATION HISTORY Immunization History Administered Date(s) Administered Tapatalk Purple Cap SARS-CoV-2 03/01/2021, 03/25/2021, 10/25/2021 SOCIAL [...] medical history, who is a never smoker, whopresents to a [facility] for an initial [...] - will get CT Chest imaging from [place] sent over (last CT Chest 08/2024) - will get set up for bronchoscopy Follow up with Dr. Mo in 1 month If you have any questions please call the office [phone] Thank you for visiting the Pulmonary clinic today! Cathy Benitez CNP [phone] documented in this [facility] Work Phone: 1(163) 291-629711-11-2024 History of Present illness Narrative* Kathleen Castro MD - 09/09/2024 2:15 PM EST Most recent office visit was in February 2023 at which time she was advised for as needed follow-up. Subjective : Accompanied by daughter to the office. Daughter Florence used to be an FLARING MACHINE OPERATOR at [employer]. Patient has persistent almost class III shortness of breath, activity such as going up a short flight of stairs or doing speech language pathologist travel make her short of breath. At times [...] and 144/84 afterwards. Test was converted to Skytideiscan Myoview which reports normal perfusion LVEFof 51% transient ischemic dilatation of 0.[address] chest as part of coronary calcium score February 2023-calcified and noncalcified enlarged bilateral hilar and subcarinal lymph nodes, left main 0 LAD 3, left circumflex 35 RCA 15 total 53 ascendingthoracic aorta 3.5 cm calcium score 48 percentile for age gender and race 12. CT chest June 2024-endobronchial lung nodules and small patchy opacities within the lungs,stable compared to February 2024, and increased compared to February 2022 mediastinal and bilateral hilar adenopathy, stable 13. PFTs September 2023-no response to bronchodilators DLCO 59% predicted when corrected to alveolarventilation DLCO probably improved, due to poor current [...] be referred to Dr.Adham Shaun [facility] at [facility]. Patient and daughter would very much want this. Follow up : 3 months Provider Attestation - Conchita Gaitan LPN Scribe documentation All medical record entries made by the Scribe were at my direction and personally dictated by me. Semaj reviewed the chart and agree that the record accurately reflects my personal performance of the history, physical exam, discussion and plan. documented in this encounterBellevue Hospital Work Phone: 1(218) 753-453311-11-2024 Instructions* Patient Instructions* Conchita Rodriges LPN - 09/09/2024 2:15 PM [...] Provided instructions on exercise. documented in this encounterBellevue Hospital Work Phone: 1(189) 135-850711-07-2024 History of Present illness Narrative* Choco Landaverde MD - 09/05/2024 9:20 AM EST Rash Location: ankles/arms Duration: months Severity: moderate [...] that can be controlled but not cured. StartTAC 0.1% bid prn when flared, hold if smooth/asymptomatic. Encouraged daily moisturizing and gentlecleansers to prevent flares. Notify office if flaring [...] lesions that fail to resolve should be re- evaluated. Cryotherapy performed today; see procedure note Diagnosis: Actinic keratosis Indication: Precancerous Location: see skin exam Consent: Verbal consent was obtained and risks were discussed, including, but not limited to risks of scarring, darker or auto dealer pigmentary changes, recurrence, incomplete removal and infection. [...] Next Visit: as scheduled documented in this encounterUniversity Health Lakewood Medical [id number] Evaluation note* Encounter Date Diagnosis Assessment Notes Treatment Notes Treatment Clinical Notes Mar, Inflamed seborrheic keratosis (ICD-10 - L82.0) cryotherapy on lesion [facility] Other 06-09-2023 Evaluation note* Encounter Date Diagnosis Assessment Notes Treatment Notes Treatment Clinical Notes Mar, Inflamed seborrheic keratosis (ICD-10 - L82.0) cryotherapy on lesion. There is no tick bite. [facility] Other 03-21-2023 Evaluation note* Encounter Date Diagnosis Assessment Notes Treatment Notes Treatment Clinical Notes Dec, Dyspnea, unspecified (ICD-10 - R06.00) Dec, Other abnormalities of breathing (ICD-10 - R06.89) Dec, Abnormal EKG (ICD-10 - R94.31) [facility] Other 03-06-2023 Evaluation note* Encounter Date Diagnosis Assessment Notes Treatment Notes Treatment Clinical Notes Dec, Leg edema (ICD-10 - R60.0) Discussed differential including heart failure. Pt would like to get tests to have a cause for her ongoing symptoms. Dec, Dyspnea on exertion (ICD-10 - R06.09) PFT this week. Complete tests as ordered. Pt agrees. [facility] Other Chief complaint Narrative - ReportedPATRICIA BRI is being seen for a consultation for.-[facility] 250 DO Work Phone: Evaluation noteNo InformationNort [employer] Other Evaluation note* Diagnosis Onset Date Resolution Status Calcified lymph nodes acute Multiple pulmonary nodules a cute [facility] Work Phone: Evaluation note* Diagnosis Onset Date Resolution Status Urinary frequency acute [facility] Work Phone: Evaluation note* Diagnosis Other [...] kidney disease (Multi) documented in this encounter [facility] Work Phone: Evaluation note* Diagnosis Sarcoid- Primary Sarcoidosis Shortness of breath documented in this encounter [facility] Work Phone: Evaluation note* Diagnosis Sarcoid Sarcoidosis documented in this encounter [facility] Work Phone: Evaluation note* Diagnosis Sarcoidosis- Primary documented in this encounter [facility] Work Phone: Evaluation note* Diagnosis CRLD (chronic restrictive lung disease)- Primary Other diseases of lung, not elsewhere classified SOTO (dyspnea on exertion) Other dyspnea and respiratory abnormality Stage 3a chronic kidney disease (Multi) Never smoked cigarettes Mixed hyperlipidemia Body mass index (BMI) 28.0-28.9, adult documented in this encounter [facility] Work Phone: Evaluation note* Diagnosis Seborrheic keratosis- Primary Xerosis cutis Other specified disease of sebaceous glands Lentigines Actinic keratosis Neoplasm of unspecified behavior of bone, soft tissue, and skin Capillary angioma Nevus, non-neoplastic Sebaceous hyperplasia of face Seborrheic keratosis, inflamed Personal history of other malignant neoplasm of skin documented [facility] this encounter [facility]* Diagnosis Seborrheic keratosis- Primary Actinic keratosis documented in this encounter [facility] HealthcareHistory general Narrative - Reported* Type Description [...] History T&A Hospitalization History SEE SURGICAL HX [employer] Other History of Present illness Narrative* 77-year-old [...] times, but not consistently, and that 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 * Assessment: * 1. 77-year-old with [...] arise, * Sincerely, * Kathleen Castro MD [facility] 250 DO Work Phone: Reason for referral (narrative)No reason for referral information availableBerger Hospital Work Phone: Reason for visit Narrative* PFT (Routine) - Authorized Specialty Diagnoses / Procedures Referred By Michel t Referred To Contact Diagnoses Sarcoid Procedures Complete Pulmonary Function Test Pre/Post Bronchodilator (Spirometry Pre/Post/DLCO/Lung Volumes) Cathy Benitez, SFDC CONSULTANT-EXECUTIVE WELLNESS PROGRAMS DIRECTOR [id number] Pulmonary Medicine, [facility], [facility] [address] [id number] Phone: tel: fax: Referral ID Status Reason Start Date Expiration Date V isits Requested Visits Authorized [id number] Authorized 10/15/2024 10/15/2025 1 1 [facility] Work Phone: Summary Purpose Family History No [...] 1 Abnormal EKG (R94.31 ) Referral Organization [facility] vito Referring Provider First Name Alexander Referring Provider Last Name Nabor Referring Provider Specialty Family [facility] [facility] Referred Organization [facility] enter Referred Provider Brandt Ramírez Referred Address [address] [facility] [address] [place] [address] Referred Provider Specialty Cardiology Referral Priority Routine General Notes Bindu Thomas 12:56:01 PM >received today, attachments made, notes locked, and referral faxed Chief Complaint and Reason for Visit Chief Complaint Admit Date Amb Documentation April 10, 2025 12:5 6pm [place] Discharge April 15, 2025 10 :32am 3 month f/u July 08, 2025 10:29am Reason for Visit Admit Date 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 April 15, 2025 10:32am Chronic systolic CHF (congestive heart f ailure) April 15, 2025 10:32am NSTEMI (non-ST elevated myocardial infar ction) April 15, 2025 10:32am Sarcoidosis April 15, 2025 10:3 2am Chief Complaint wellness Reason for Visit Urinary frequency Additional Source Comments INFORMATION SOURCE (unrecogn ized section and content) DATE CREATED AUTHOR 10/20/2018 [facility] DATE CREATED AUTHOR AUTHOR'S ORGANIZ ATION 02/13/2023 [facility] DATE CREATED AUTHOR AUTHOR'S ORGANIZ ATION 02/14/2023 [facility] DATE CREATED AUTHOR AUTHOR'S ORGANIZ ATION 03/03/2023 [facility] DATE CREATED AUTHOR AUTHOR'S ORGANIZ ATION 04/07/2023 [facility] DATE CREATED AUTHOR AUTHOR'S ORGANIZ ATION 01/26/2024 [facility] DATE CREATED AUTHOR AUTHOR'S ORGANIZ ATION 10/22/2024 [facility] DATE CREATED AUTHOR AUTHOR'S ORGANIZ ATION 12/24/2024 [facility] DATE CREATED AUTHOR AUTHOR'S ORGANIZ ATION 01/01/2025 [facility] DATE CREATED AUTHOR AUTHOR'S ORGANIZ ATION 03/13/2025 [facility] DATE CREATED AUTHOR AUTHOR'S ORGANIZ ATION 04/25/2025 [facility] EPIC DATE CREATED AUTHOR AUTHOR'S ORGANIZ ATION 08/07/2025 [facility] REASON FOR VISIT (unrecogniz ed section and content) Reason Comments Follow-up 1 year Specialty Diagnoses / Procedures Referred By Michel nolan Referred To Contact Diagnoses SOTO (dyspnea on exertion) Procedures ECG 12 Lead Kathleen Castro MD [address] [place] [address] Phone: tel: fax: Referral ID Status Reason Start Date Expiration Date V isits Requested Visits Authorized [id number] Authorized 09/09/2024 09/09/2025 1 1 Reason Comments Lung Eval Second opinion. Covi d 2020, Shortness of breath Reason Comments follow up sarcodosis Reason Comments Follow-up 3 month Specialty Diagnoses / Procedures Referred By Michel nolan Referred To Contact Cardiology Diagnoses Mixed hyperlipidemia Procedures Follow Up In Cardiology Kathleen Castro MD [address] [place] [address] Phone: tel: fax: Kathleen Castro MD [address] [address] Phone: tel: fax: Referral ID Status Reason Start Date Expiration Date V isits Requested Visits Authorized [id number] Authorized 09/09/2024 09/09/2025 1 1 Reason Comments [...] January 22, 2024 End: January 22, 2024 Diesel Technician Mechanic Relationship Specialty Start Date End Date Alexander Tomlin MD [address] [id number] PCP - General 01/18/23 Diesel Technician Mechanic Relationship Specialty Start Date End Date Alexander Tomlin MD [address] [place] [address] PCP - General 01/18/23 Diesel Technician Mechanic Relationship Specialty Start Date End Date Alexander Tomlin MD [address] [place] [address] PCP - General 01/18/23 Diesel Technician Mechanic Relationship Specialty Start Date End Date Alexander Tomlin MD [address] [place] [address] [address] [place] [address] PCP - General 01/18/23 Team Status: Active Member Role Status Dates Alexander Tomlin MD Primary Care Provider Active Start: April 10, 2025 Lory Noguera CMA Attending Provider Active Start: April 10, 2025 Team Status: Inactive Member Role Status Dates Alexander Tomlin MD Primary Care Provider Active Start: April 15, 2025 End: April 15, 2025 Alexander Tomlin MD Attending Provider Active St art: April 15, 2025 End: April 15, 2025 Team Status: Active Member Role Status Dates Alexander Tomlin MD Primary Care Provider Active Start: May 14, 2025 Abraham Blackmon NP-C Attending Provider Active S tart: May 14, 2025 Team Status: Active Member Role Status Dates Alexander Tomlin MD Primary Care Provider Active Start: May 21, 2025 Alfred Stern MD Attending Provider Active Start: May 21, 2025 Team Status: Inactive Member Role Status Dates Alexander Tomlin MD Primary Care Provider Active Start: July 08, 2025 End: July 08, 2025 Alexander Tomlin MD Attending Provider Active St art: July 08, 2025 End: July 08, 2025 Goals (unrecognized section and content) Goals may [...] BE BASED ON THE PRIMARY CLINICAL RECORDS. [facility]. provides no warranty or guarantee of the accuracy or completeness of information in this document.
--- NOTE | 2025-08-12 13:55 | MM_ITS ---
Patient Name: PILO GREGORY MR#: [id number] : 1945 Exam Date: 08/12/2025 Ordering Doctor: DR ALEXANDER TOMLIN M.D. RADIOLOGY REPORT PROCEDURE: MM TOMOSYNTHESIS SCREENING BI COMPARISON: MM TOMOSYNTHESIS SCREENING BI, 03/13/2024. MG MAMM SCREEN 3D ITALIA CAD, 11/03/2022. MG MAMM SCREEN 3D ITALIA CAD, 10/04/2021. MG MAMM ITALIA SCRN W CAD DIG, 12/18/2015. INDICATIONS: Screening Calculator Name NCI Breast Cancer Risk Assessment Tool 5 Year Breast Cancer Risk 3.60% Lifetime Breast Cancer Risk 6.40% Personal Breast Cancer No Personal Ovarian Cancer No Treatments None Family Cancers Mother with breast cancer at age 58. LOCATION: [facility] BREAST COMPOSITION: There are scattered areas of fibroglandular density. FINDINGS: DIAGNOSTIC CATEGORY 1--NEGATIVE. RIGHT BREAST: No significant suspicious finding. LEFT BREAST: No significant suspicious finding. RECOMMENDATIONS: ROUTINE MAMMOGRAM AND CLINICAL EVALUATION IN 12 MONTHS. Dictated by: González Hannon DO on 08/12/2025 at 15:47 Approved by: González Hannon DO on 08/12/2025 at 15:49
== END 2025-08-12 13:27 | disposition home or self-care (01) ==
LOC: MAMMO 13:26
PROVIDERS: PCP Family Medicine; Visit Provider Family Medicine
DX: Z12.31 Encounter for screening mammogram for malignant neoplasm of breast (principal); Z80.3 Family history of malignant neoplasm of breast
CPT/HCPCS: 77063; 77067

== ENCOUNTER 2025-08-20 07:13 | Outpatient (RCR) | payer MEDICARE, OTHER, SELFPAY ==
--- NOTE | 2025-04-16 14:47 | CR1_ITS ---
The [facility] Test Date: 2025-04-17 Pat Name: PILO GREGORY Department: Room: - Gender: Female Director Of Student Services: : 1945 Requested By: Alexandru Moncada Order Number: [id number] Ivan MD: Alexandru Moncada Interpretive Statements Okay to proceed with outlined treatment plan. Electronically Signed On 04-21-2025 12:23:19 EDT by Alexandru Moncada
--- NOTE | 2025-04-21 14:01 | CR1_ITS ---
The [facility] Test Date: 2025-04-21 Pat Name: PILO GREGORY Department: Room: - Gender: Female Copy Editor: : 1945 Requested By: Alexandru Moncada Order Number: [id number] Reading MD: Alexandru Moncada Interpretive Statements Okay to proceed with outlined treatment plan. Electronically Signed On 04-23-2025 7:12:21 EDT by Alexandru Moncada
--- NOTE | 2025-05-07 09:35 | CR1_ITS ---
The [facility] Test Date: 2025-05-07 Pat Name: PILO GREGORY Department: Room: - Gender: Female Slicing Machine Operator: : 1945 Requested By: Alexandru Mocnada Order Number: [id number] Ivan MD: ALFRED LOWERY M.D. Interpretive Statements Patient may continue cardiac rehab as outlined in the treatment plan. Electronically Signed On 06-06-2025 10:09:37 EDT by ALFRED LOWERY M.D.
--- NOTE | 2025-06-09 07:23 | CR1_ITS ---
The [facility] Test Date: 2025-06-09 Pat Name: PILO GREGORY Department: Room: - Gender: Female Housekeeping Cleaner: : 1945 Requested By: ALFRED LOWERY M.D. Order Number: [id number] Reading MD: Taran Montilla Interpretive Statements Session Date: Electronically Signed On 06-27-2025 13:27:44 EDT by Taran Montilla
--- NOTE | 2025-07-10 08:08 | CR1_ITS ---
[facility] Test Date: 2025-07-10 Pat Name: PILO GREGORY Department: Room: - Gender: Female K 9 Handler/ Deputy: : 1945 Requested By: ALFRED LOWERY M.D. Order Number: [id number] Ivan MD: ALFRED LOWERY M.D. Interpretive Statements Patient may continue cardiac rehab as outlined in the treatment plan. Electronically Signed On 07-16-2025 18:01:36 EDT by ALFRED LOWERY M.D.
--- NOTE | 2025-08-07 09:21 | CR1_ITS ---
The [facility] Test Date: 2025-08-07 Pat Name: PILO GREGORY Department: Room: - Gender: Female Office Director: : 1945 Requested By: ALFRED LOWERY M.D. Order Number: [id number] Ivan MD: ALFRED LOWERY M.D. Interpretive Statements Patient may continue cardiac rehab as outlined in the treatment plan. Electronically Signed On 08-07-2025 10:53:16 EDT by ALFRED LOWERY M.D.
--- NOTE | 2025-08-20 10:46 | CR1_ITS ---
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 Order Number: [id number] Ivan MD: ALFRED LOWERY M.D. Interpretive Statements Electronically Signed On 08-21-2025 0:08:19 EDT by ALFRED LOWERY M.D.
== END 2025-08-20 10:40 | disposition home or self-care (01) ==
LOC: CR 07:13
PROVIDERS: PCP Family Medicine; Visit Provider Internal Medicine Interventional Cardiology
DX: I21.9 Acute myocardial infarction, unspecified (principal); Z98.61 Coronary angioplasty status; I50.9 Heart failure, unspecified; I25.10 Atherosclerotic heart disease of native coronary artery without angina pectoris; I49.9 Cardiac arrhythmia, unspecified; I11.0 Hypertensive heart disease with heart failure
CPT/HCPCS: 93798

== ENCOUNTER 2025-08-20 10:28 | Outpatient (OUT) | payer MEDICARE, OTHER, SELFPAY ==
--- OUTSIDE RECORDS SUMMARY | 2025-08-19 09:30 | XMS_ITS | Continuity of Care Document ---
Author Organization [facility] Address [address] [place] [address] Phone Care Team Providers Care Car Wash Attendant Name Role Phone Katernia Mortensen MD Primary Care Provider Doug Stern MD Attending Provider Katerina Mortensen MD Attending Provider [phone] Care Teams Patient Care Team Team Status: Active Member Role/Relationship Status Dates Katerina Mortensen MD Primary Care Provider Active Visit Care Team Team Status: Active Member Role/Relationship Status Dates Katerina Mortensen MD Primary Care Provider Active Start: May 21, 2025 Zaira Sam ProviderActiveStart: May 21, 2025 Visit Care Team Team Status: Inactive Member Role/Relationship Status Dates Katerina Mortensen MD Primary Care Provider Active Start: July 08, 2025 End: July 08, 2025Zaira Dasilva ProviderActiveStart: July 08, 2025 End: July 08, 2025 Patient Care Team Team Status: Inactive Member Role/Relationship Status Dates Katerina Mortensen MD Primary Care Provider Active Start: August 19, 2025 End: August 19, 2025Zaira Dasilva ProviderActiveStart: August 19, 2025 End: August 19, 2025 Chief Complaint and Reason for Visit Chief Complaint Admit Date 3 month f/u July 08, 2025 10:29am Lump On Rt Foot August 19, 2025 1 :02pm Reason for Visit Admit Date 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 July 08, 2025 10:29am Chronic systolic CHF (congestive heart f ailure) July 08, 2025 10:29am NSTEMI (non-ST elevated myocardial infar ction) July 08, 2025 10:29am Sarcoidosis July 08, 2025 10:29am Screening mammogram for breast cancer Se ptember 2024 10:29am Mass of right foot August 19, 2025 1 :02pm Reason for Referral Type Reason(s) Provider Provider Contact Information P rovider Address Start Date Mass of right foot R22.41 - Localized swelling, mass and lump, right lower limbR22.41 - Localized swelling, mass and lump, right lower limbHighlander BellevueOctober 2024 Allergies, Adverse Reactions, Alerts Allergen Type Severity Reaction Last Updated Verified Status iodine Allergy Unknown Hives August 19, 2025 1:10pm Yes Active Social History Smoking Status Status Start Date End Date Date of Observa tion Never smoked tobacco (finding) July 08, 2025 12:53pm Observation Status Observation Response Date of Response Legal Sex [facility] (finding) [facility] 1945 Family History Relationship Condition Age at Onset Recorded Date/T martin daughter Hypertension Unknown fatherDeceasedUnknownmotherDeceasedUnknownMalignant neoplasmUnknownson HypertensionUnknown Problems Active Problems Problem Diagnosis/Recorded Date Onset Date Stat us RLQ abdominal pain September 23, 2024 12:59pm Unknown Active Medicare annual wellness vis it, subsequent August 12, 2024 10:57pm Unknown Active Screening mammogram for breast cancer July 08, 1:04pm Unknown Active Sinusitis, acute maxillary September 23, 2024 12:59pm Unknown Active Urinary frequency August 02, 2024 11:00am Unknown Active Mass of right foot August 19, 2025 1:25pm Unknown Active NSTEMI (non-ST elevated myoc ardial infarction) April 15, 2025 12:45pm Unknown Active Multiple pulmonary nodules December 27, 2023 10:15am Unknown Active Calcified lymph nodes December 27, 2023 10:15am Unkn own Active CKD stage 3a, GFR 45-59 ml/min September 23, 2024 12: 59pm Unknown Active Sarcoidosis April 15, 2025 12:45pm Unknown Acti ve Chronic systolic CHF (conges tive heart failure) April 15, 2025 12:46pm Unknown Active 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 April 15, 2025 12:46pm Unknown Active Medications Medication Status Dose Units Route Directions Qty Days Refills S tart Date Stop Date End Date Reason(s) Instructions Adherence Sacubitril-Valsartan (Entresto) 24-26 mg tablet Active 1 TAB PO Twice daily 60 3July 2024 8:16amComplies with drug therapyLoratadine 10 mg tablet Jjllriqefqdk21EGXNGvtir179Bhfh 2024 12:36pmSeptember 2024 10:45am Ascorbic Acid (Vitamin C) 1,000 mg vvghorLokripwwuxjl5094UWUKRffyi488Tmxm 2024 1:48pmAugust 2024 8:26amAspirin 81 mg ldbokxSfdswz70PIKDVgzee704Inov 2024 2:07pmComplies with drug therapyFurosemide 20 mg kyfpfaIcwioxliqrwf84 TZZHWrdwl697Xbwqgf 2024 3:40pmAugust 2024 3:00pmAtorvastatin 40 mg vqysceAljyuszvrvig28GJAJGgbtg061Akdrjd 2024 3:41pmAugust 2024 3:00pm Spironolactone 25 mg gdbhnoEvhflxbkbuag32XYLBXyyce437Oxyfzk 2024 3:41pm June 03, 2025 3:00pmAtorvastatin 40 mg aumpemAzxzri00DFODOcoiw650Twpkyb 2024 2:59pmComplies with drug therapyFurosemide 20 mg gefxedVfwmcq52FTVMXsmgw175 June 03, 2025 2:59pmComplies with drug therapySpironolactone 25 mg tablet Crhhtg18BMRGCsokr338Vohhga 2024 3:00pmComplies with drug therapyClopidogrel 75 mg vxdxcqXlprfw33XKKUNfofr619Mngbyf 2024 8:27amComplies with drug therapyMetoprolol Succinate 100 mg tablet extended release 24 weAhcyxk078YEDI Lhaoj458Vtwnul 2024 8:27amComplies with drug therapySaccharomyces Boulardii (Daily Probiotic (S. Boulardii)) 250 mg akoebglVtptgo943EHYURwwqw uqmzj628Xpfjqa 2024 8:27amComplies with drug therapyAscorbic Acid (Vitamin C) 1,000 mg haxnqpKywvdileraaw8450FGHPGhgwh120Tsjlcj 2024 8:26amSeptember 2024 11:07amAzithromycin 250 mg jrfczpZucuaoyhqbqs4SNaproi677Rmhtckmq 2023 1:00amJune 2024 10:40amAcute maxillary sinusitis Acute maxillary sinusitis, unspecifiedTake 2 on day 1 and then take 1 for the next 4 days (days 2-5)Albuterol Sulfate 90 mcg/actuation HFA aerosol inhaler Lttbbqanwtma6ZCXAQZBXLWOESWHogqk 4 hoursFebruary 2023 1:00amOctober 2023 10:38amFreeTextSi puff as needed Inhalation every 4 hrs; Note: Source Status: Taking; Provider: Festus Borges ( )Methylprednisolone 4 mg tablets,dose packDiscontinuedMGPOAs DirectedFebruary 2023 1:00amMarch 2023 12:16pmFreeTextSig: as directed Orally; Note: Source Status: Start; Refills: 0; Qty: 1 Packet; Provider: Festus Borges EAzithromycin 250 mg tablet DiscontinuedTABPODailyFebruary 2023 1:00amMarch 2023 12:16pm FreeTextSig: as directed Orally 2 tabs po today, then 1 tab daily x 4 more days; Note: Source Status: Start; Refills: 0; Provider: Festus Borges ELoratadine (Claritin) 10 mg ykvcvuJphpgyjajmhf29UXVKYmklfWpyot 2023 1:00amOctober 2023 10:38amCefdinir 300 mg kmccjftKdfmwrpzvrps833UFXLWgarl pwvfq849Raoppmcf 2023 1:00amDecember 2023 10:40amAlbuterol Sulfate 90 mcg/actuation HFA aerosol gwniwopXnxjzt0JPIPAZJZONLNGTVyppm 6 hours as needed for shortness of breath or psnkqpkq78ZylsApril 15, 2025 12:00amComplies with drug therapy Atorvastatin 40 mg detlkzFqwvbrqhgqoh01NAFFYrqih170Ahvc 2024 12:002024 3:41pmAscorbic Acid (Vitamin C) 1,000 mg fnvannKzexymazxgik7803WIDQ Cxbek707Jkzy 17th, 2025 12:00amJuly 2024 1:48pmAspirin 81 mg tablet Ikxdstpkdwxn41WWZKWhnvq502Mokn 17th, 2025 12:00amJuly 2024 2:07pm Clopidogrel 75 mg oocqprLzgdbmjdnkuk27SMDABzgnm412Geij 17th, 2025 12:002024 8:27amBenzonatate 100 mg lkzlohpAxklegyrtrbo397YBBMSkmly daily as needed for ugkfi805JqqyApril 15, 2025 12:00amSeptember 2024 10:45am Dapagliflozin Propanediol 10 mg wdapxaCfdpyrsbjvhm53CEUQFxsnp690Hmvn 2024 12:00amJune 2024 10:47amDiphenhydramine Hcl 50 mg cqeuvawXyvqrcvqogks01KO SXTejp066AomtApril 15, 2025 12:002024 10:47amSacubitril-Valsartan (Entresto) 24-26 mg hwfodsDjuixqezaquo1AKDMMIzrhj awrlp575Brtt 17th, 2025 12:00amJu 2024 8:16amFurosemide 20 mg vbaarzNctzvzaibupf49KDJAXzbhv613 April 15, 2025 12:002024 3:40pmLoratadine 10 mg tablet Brtzqttxrzfj63QLFMEtfyi830Aghi 17th, 2025 12:00amJu2024 12:36pm Alendronate-Vitamin D3 (Fosamax Plus D) 70 mg- 2,800 unit chjcckFqupnaxzzbtn1KJG POevery siht681Vdeb2024 12:00Jun2024 12:45pmMetoprolol Succinate 100 mg tablet extended release 24 pbRskkbxhiuova490JQYHDewnw536Cijm 2024 12:00amAugu2024 8:27amSpironolactone 25 mg tabletDiscontinued 76MZCWKubxw468Zbdg 2024 12:00amA2024 3:41pmSaccharomyces Boulardii (Daily Probiotic (S. Boulardii)) 250 mg nptjyibPldnwxhtejea589OOKC Twice vciqg631Mirb 17th, 2025 12:00amA2024 8:27amDiphenhydramine Hcl 50 mg ksjniitAwssvqbpmrsl43NZCFUtio as neededJune 2024 10:44amJuly 2024 12:36pmLoratadine 10 mg xrklkdVcmveo23JTBOSypyt as neededSept2024 10:43amComplies with drug therapyPantoprazole 20 mg tablet,delayed release (DR/EC)Jdcxkoxreybm66AECRJfkyxNwxiegvtk 2024 12:00amSeptember 2024 11:07am Immunizations Immunization Event Date Not Given Reason Dose Number Depositing Machine Operator Lot Number Reason(s) Given Vaccine Information Statement (VIS) Detail Administration Location COVID-19 mRNA, Comirnaty ([employer]) March 01, 2021 COVID-19 mRNA, Comirnatjennifer ([employer])March 25, 2021influenza, unspecified formulationDeceer 2015Pneumococcal Conjugate Vaccine, 13 valentDeceer 2015Pneumococcal Polysacc. Vaccine, 23 valentDecember 2018 Relevant Diagnostic Tests and/or Laboratory Data Laboratory Results Test Collection Date/Time Result Date/Time Result Interpretation Reference Range Result Comment Performing Site Cholesterol/HDL Ratio May 21, 2025 9:00am May 21 9:00am 2.2 3.3 - 4.4 LOW RISK4.4 - 7.1 AVERAGE RISK7.1 - 11.0 MODERATE RISK>11.0 HIGH RISK Cholesterol LevelJuly 2024 9:00amJuly 2024 9:60bb051 mg/dL<=200HDL CholesterolJuly 2024 9:00amJuly 2024 9:00am50 mg/dL40-60> or =60 mg/dl - LOW CARDIOVASCULAR RISK<40 mg/dl - HIGH CARDIOVASCULAR RISKLDL Cholesterol, CalculatedJuly 2024 9:00amJu2024 9:00am45.4 mg/dL <100 mg/dl WPOOVIY785-303 mg/dl NEAR OR ABOVE JRSHVHV298-423 mg/dl BORDERLINE PYSO616-018 mg/dl HIGH>190 mg/dl VERY HIGHTriglycerides LevelJuly 2024 9:00amMay 21, 2025 9:00am83 mg/dL<=150VLDL CholesterolJuly 2024 9:00am May 21, 2025 9:00am16.6 mg/dL Vital Signs Vital Reading Result Reference Range Collection Date/Time Height 63.25 [in_i] July 08, 2025 10:67jiPlthav63.02 kgSeptember 2024 10:34amHeart Rate65 /dbb17-355Xbxdvavfa 2024 10:34amBP Apvggpqt037 mm[Hg]100-140September 2024 10:34amBP Szwwtxpof52 mm[Hg]60-100September 2024 10:34amBMI (Body Mass Index)28.3 kg/e0Quttutgri 2024 10:50zlUepdth58.25 [in_i]August 19, 2025 1:22ymTvpxql60.38 kgOctober 2024 1:07pmHeart Rate68 /dii87-364Jkxuulc 2024 1:07pmBP Lhvfybuv810 mm[Hg]100-140October 2024 1:07pmBP Wwzuchjwf57 mm[Hg]60-100October 2024 1:07pmBMI (Body Mass Index)28.8 kg/m2 August 19, 2025 1:07pm Advance Directives Advance Directive Response Recorded Date/ Time Advance Directives No November 28, 2018 12:00pm Insurance Providers Guarantor Hector Vizcarra [address] [address] [address] [address]Eycnyaq Info.Home Phone: Payer Group Member ID Coverage Type Subscriber Relationship to Subscriber Effective Date Expiration Date Medicare [id number] Neill , M Id: [id number] [place] [address] Home Phone: SelfMedicare Nonpatient [id number] Neill , M Id: [id number] [place] [address] Home Phone: Self Encounters Encounter Location(s) Arrival/Admit Date Discharge/Departure Date Discharge/Departure Disposition Provider(s) Non-patient / Non-visit -[facility] Professional Darlene coleman 2024 9:00am Doug Stern V, MDDeparted Physician/Provider [facility] 10:29amSept2024 11:18amDischarged to home care or self care (routine discharge)ALY Dasilvaeparted Physician/Provider [facility] August 19, 2025 1:29pmDischarged to home care or self care (routine discharge)Katerina Mortensen MD Recent Diagnosis Onset Date Admit Date 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 Unknown July 08 10:29am Chronic systolic CHF (conges tive heart failure) Unknown July 08, 2025 10:29am NSTEMI (non-ST elevated myocardial infarction) U nknown July 08, 2025 10:29am Sarcoidosis Unknown July 08, 2 025 10:29am Screening mammogram for breast cancer Unknown July 08, 2025 10:29am Mass of right foot Unknown August 19, 2025 1:02pm Assessments Diagnosis Onset Date Resolution Status Admit Date Acute combined systolic (congestive) and diastolic (congestive) heart failure acuteSept2024 10:29amChronic systolic CHF (congestive heart failure) acuteSept2024 10:29amNSTEMI (non-ST elevated myocardial infarction) acuteSept2024 10:29amSarcoidosisacuteSept2024 10:29am Screening mammogram for breast canceracuteSept5 10:29amMass of right footacuteOctober 2024 1:02pm Plan of Treatment Author [facility]aterina Mortensen [facility] 1:11pmsent to [facility] Continue present medications. Continue CR. Followup w [facility] Cardiology as scheduled. Followup w [facility] Pulm for sarcoidosis. Followup here in 3 months, sooner if needed. Future Tests Future scheduled test information is unavailable Pending Tests Test Name Ordered Date Scheduled Date XR foot RT min 3V* August 19, 2025 1:24pm MM screening mammo BI w/CADSeptember 2024 1:04pm Future Visits Future appointment information is unavailable Future Procedures Future procedure information is unavailable Future Medications Future medication information is unavailable Patient Instructions Patient instructions are unavailable Hospital Discharge Instructions Ambulatory Orders* Referral to Podiatry Time Frame: 08/19/25, Location: None Selected
--- OUTSIDE RECORDS SUMMARY | 2025-08-20 10:39 | XMS_ITS | Clinical Summary ---
Author Organization [facility] Healthcare Address [address] [place] [address] Care Team Providers Care Mill Tender Washing Name Role Phone Unavailable Primary Care Provider Unavailabl e Allergies Active AllergyReactionsCriticalityNoted DsdbOzdxetkdTictmaSvdeIkz85/05/2007 Medications MedicationSigDispense QuantityRefillsLast FilledStart DateEnd DateStatus Ventolin HFA 108 (90 Base) MCG/ACT inhaler 3Active triamcinolone (Kenalog) 0.1 % cream Indications:Other atopic dermatitisApply topically 2 (two) times a day as needed (Rash) 60 g ctive Multiple Vitamin (Multi-Vitamin) tablet Take 1 tablet by mouth in the morning.Active Trelegy Ellipta 100-62.5-25 MCG/ACT aerosol powder 5Active fluticasone (Flonase) 50 MCG/ACT nasal spray 1 spray in the morning.Active Symbicort 80-4.5 MCG/ACT inhaler every 12 (twelve) hours4Active aflibercept (Eylea) 2 MG/0.05ML intra-ocular injection 2 mg by Intravitreal routeActive aspirin 81 MG EC tablet Take 81 mg by mouth DailyActive clopidogrel (Plavix) 75 MG tablet Take by mouth DailyActive sacubitril-valsartan (Entresto) 24-26 MG tablet Take 1 tablet by mouth in the morning and 1 tablet before bedtime.Active furosemide (Lasix) 20 MG tablet Take by mouthActive metoprolol tartrate (Lopressor) 100 MG tablet Take 100 mg by mouth in the morning and 100 mg before bedtime.Active spironolactone (Aldactone) 25 MG tablet Take by mouth DailyActive Ascorbic Acid (vitamin C) 100 MG tablet Take 100 mg by mouth DailyActive atorvastatin (Lipitor) 40 MG tablet Take 40 mg by mouth DailyActive Active Problems No known active problems Family History Medical HistoryRelationNameCommentsMelanomaNeg Hx Social History Tobacco UseTypesPacks/DayYears UsedDateSmoking Tobacco: NeverSmokeless Tobacco: Never Tobacco Cessation:Counseling Given: Not Answered Alcohol UseStandard Drinks/WeekCommentsDefer0 (1 standard drink = 0.6 oz pure alcohol)CommentsUnknownSex and Gender InformationValueDate RecordedSex Assigned at BirthNot on fileLegal ArkCzytti99/15/2023 7:29 PM EDTGender Identity Not on fileSexual OrientationNot on file Plan of Treatment DateTypeDepartmentCare Team (Latest Contact Info)Ajjltfwvufp58/17/2025 8:45 AM ESTOffice Visit [facility] [address] [place] [id number] Ryley Galicia DO [address] [place] [address] 01/29/2026 9:00 AM EDTOffice Visit [facility] [address] [place] [address] Breanna Landaverde MD [address] [place] [address] Health MaintenanceDue DateLast DoneCommentsInfluenza Vaccine (#1)06/30/2025 10/08/2016Pneumococcal Vaccine: 65+ YdaqePsibzaxox94/27/2019, 10/06/2016, 04/09/2015, Additional history exists Insurance
--- OUTSIDE RECORDS SUMMARY | 2025-08-20 10:39 | XMS_ITS | Clinical Summary ---
Author Organization [facility] Address [address] [place] [address] Phone Care Team Providers Care Meter Shop Supervisor Name Role Phone Katerina Mortensen MD Primary Care Provider [phone] Allergies No known active allergies Medications MedicationSigDispense QuantityRefillsLast FilledStart DateEnd DateStatus multivitamin tablet Take 1 tablet by mouth once daily.Active fluticasone (Flonase) 50 mcg/actuation nasal spray Administer 1 spray into each nostril once daily. Shake gently. Before first use, prime pump. After use, clean tip and replace cap.Active aflibercept (Eylea) 2 mg/0.05 mL intra-ocular injection 0.05 mL (2 mg) by intravitreal route 1 time. Every 4 monthsActive Active Problems ProblemNoted DateDiagnosed DateDOE (dyspnea on exertion)09/09/2024Never smoked yzyldudsma31/11/2024ody mass index (BMI) 28.0-28.9, adult09/09/2024RLD (chronic restrictive lung disease)09/09/2024ersonal history of COVID-19 09/09/2024Stage 3a chronic kidney nqbqxzd5309/09/2024 Resolved Problems ProblemNoted DateDiagnosed DateResolved DateMixed tzzmobzgpsgaxh86/11/2024 12/23/2024 Immunizations ImmunizationAdministration DatesNext DueInfluenza, Hdozukfqloi78/10/2016 Pneumococcal conjugate vaccine, 13-valent (PREVNAR 13)10/06/2016,04/09/2015 Pneumococcal polysaccharide vaccine, 23-valent, age 2 years and older (PNEUMOVAX 23)10/25/2019 Family History Medical HistoryRelationNameCommentsHeart failureFatherCancerMotherRelationName StatusCommentsFatherMother Social History Tobacco UseTypesPacks/DayYears UsedDateSmoking Tobacco: NeverSmokeless Tobacco: NeverAlcohol UseStandard Drinks/WeekCommentsYes0 (1 standard drink = 0.6 oz pure alcohol)PHQ-2AnswerDate RecordedPatient Health Questionnaire-2 Aeuzo429 CommentsUnknownSex and Gender InformationValueDate RecordedSex Assigned at BirthNot on fileLegal OlsNmzkhn79/22/2023 3:23 PM EDTGender IdentityNot on fileSexual OrientationNot on file Last Filed Vital Signs Vital SignReadingTime TakenCommentsBlood Ysmmlquo603/60012/23/2024 12:40 PM EST Wszfe1708/24/2025 12:40 PM HOPNgqstrzmbxy68.5 ??C (97.7 ??F)10/15/2024 9:21 AM ESTRespiratory Fkcs602112/16/2023 9:21 AM ESTOxygen Vxpnfirjjs98%10/15/2024 9:21 AM ESTInhaled Oxygen Concentration--Xgvrnn06.8 kg (162 lb 12.8 oz)12/23/2024 12:40 PM YGHYcisuu534.3 cm (5' 3.5 )12/23/2024 12:40 PM ESTBody Mass Index28.39 12/23/2024 12:40 PM EST Plan of Treatment Health MaintenanceDue DateLast DoneCommentsLipid Panel1945Medicare Annual Wellness Visit (AWV)1945Hepatitis C Dmvdqslxw74/03/1965CKD: Urine Protein Rbruzgcqk24/03/1966DTaP/Tdap/Td Vaccines (1 - Tdap)1968Zoster Vaccines (1 of 2)1996Bone Density Scan12/31/2011RSV High Risk: (Elderly (60+) or Population) (1 - 1-dose 75+ series)2021Influenza Vaccine (#1) COVID-19 Vaccine (1 - 2024- season)2025Pneumococcal OtmoiveUvgrlfxtg14/27/2019, 10/06/2016, 04/09/2015HIB VaccinesAged OutNo longer eligible based on patient's age to complete this topicHPV VaccinesAged OutNo longer eligible based on patient's age to complete this topicHepatitis A VaccinesAged OutNo longer eligible based on patient's age to complete this topic Hepatitis B VaccinesAged OutNo longer eligible based on patient's age to complete this topicIPV VaccinesAged OutNo longer eligible based on patient's age to complete this topicMeningococcal VaccineAged OutNo longer eligible based on patient's age to complete this topicRotavirus VaccinesAged OutNo longer eligible based on patient's age to complete this topic Insurance Care Teams Team MemberRelationshipSpecialtyStart DateEnd Katerina Will MD [address] [place] [id number] [facility]01/18/23
--- OUTSIDE RECORDS SUMMARY | 2025-08-20 10:40 | XMS_ITS | Clinical Summary ---
Author Organization [facility] Address [address] [place] [address] Care Team Providers Care Crm Campaign Manager Name Role Phone Quinton Pepper Primary Care Provider [phone] Allergies Active AllergyReactionsCriticalityNoted XpzzCwtrieilPcvdljSjhy49/05/2007 Medications No known medications Active Problems ProblemNoted DateDiagnosed DateActinic cvvauatxq88/05/2007Inflamed seborrheic imhlmqlqe50/06/2005Benign neoplasm of skin of other and unspecified parts of face04/04/2005Benign neoplasm of scalp and skin of neck04/04/2005Benign neoplasm of skin of trunk, except guxqqmc3804/04/2005Benign neoplasm of skin of upper limb, including kyyucywo59/06/2005Benign neoplasm of skin of lower limb, including hip 04/04/2005 Social History Tobacco UseTypesPacks/DayYears UsedDateSmoking Tobacco: NeverAlcohol UseStandard Drinks/WeekCommentsYes0 (1 standard drink = 0.6 oz pure alcohol)Area Deprivation IndexAnswerDate RecordedNational Score (1-100), lower number is lower riskNot on file10/04/2020State Score (1-10), lower number is lower riskNot on file 10/04/2020Data from: https://www.neighborhoodatlas.medicine.[facility].edu/. Last address used for calculationNot on file10/04/2020CommentsNoSex and Gender InformationValueDate RecordedSex Assigned at BirthNot on fileLegal Sex Kpasyv1709/30/2012 7:19 AM ESTGender IdentityNot on fileSexual OrientationNot on file Last Filed Vital Signs Vital SignReadingTime TakenCommentsBlood Pressure--Pulse--Temperature-- Respiratory Rate--Oxygen Saturation--Inhaled Oxygen Concentration--Apgfii72.2 kg (168 lb)04/04/2005 1:00 PM EDTHeight--Body Mass Index-- Plan of Treatment Health MaintenanceDue DateLast DoneCommentsAnxiety Kmwodpebn95/03/1965Depression Agydgupcv34/03/1965Hepatitis C Rwjytzygx41/03/1965DTaP,Tdap,Td Vaccine (1 - Tdap)1965Diabetes Vturkebzu01/03/1992Shingrix Vaccine (1 of 2)1996 Pneumococcal Vaccine: 50+ (2 of 2 - PCV)one Density Zkfjviyke72/03/2012RSV Vaccine (1 - 1-dose 75+ series)2021dvance Directive Khgjirvyba51/01/2025ovid-19 Vaccine ( - 2024- season)2025 Influenza Vaccine (#1)2025 Insurance * Guarantor: Leeanne Caban TypeRelation to PatientDate of BirthPhone Billing VtqnxflUkvuaBcqo85/03/1946 [address] [place] [address] * Guarantor: Leeanne Caban TypeRelation to PatientDate of BirthPhone Billing AddressPersonal/HfmugjGgsc68/03/1946 [address] [place] [address] Care Teams Team MemberRelationshipSpecialtyStart DateEnd Date Quinton Pepper [address] [place] [address] PCP - General01/12/05
--- OUTSIDE RECORDS SUMMARY | 2025-08-20 10:40 | XMS_ITS | Clinical Summary ---
Author Organization [facility] Address [address] [place] [address] Care Team Providers Care Claim Rep Name Role Phone Katerina Mortensen MD Primary Care Provider [phone] Allergies No known active allergies Medications MedicationSigDispense QuantityRefillsLast FilledStart DateEnd DateStatus albuterol 90 mcg/actuation inhaler Inhale 2 puffs every 6 (six) hours if needed for wheezing.Active ascorbic acid (Vitamin C) 1,000 mg tablet Take 1,000 mg by mouth in the morning.Active alendronate-vitamin D3 (Fosamax Plus D) 70 mg- 5,600 unit tablet Take 1 tablet by mouth every 7 (seven) days. Take in the morning with a full glass of water, on an empty stomach, and do not take anything else by mouth or lie down for the next 30 min.Active loratadine (Claritin Reditabs) 10 mg disintegrating tablet Take 10 mg by mouth in the morning.Active midazolam (Versed) 2 mg/mL syrup Take by mouth 1 (one) time.Active diphenhydrAMINE (BENADryl) 25 mg capsule Take 50 mg by mouth every 6 (six) hours if needed for sleep.Active aspirin 81 mg EC tablet Indications:NSTEMI (non-ST elevated myocardial infarction) (CMS/HCC),Coronary artery disease involving [place] coronary artery of [place] heart without angina pectorisTake 1 tablet (81 mg) by mouth in the morning for 360 doses. 30 tablet 1104///ctive atorvastatin (Lipitor) 40 mg tablet Indications:NSTEMI (non-ST elevated myocardial infarction) (CMS/HCC),Coronary artery disease involving [place] coronary artery of [place] heart without angina pectorisTake 1 tablet (40 mg) by mouth at bedtime for 93 doses. 30 tablet 5Active clopidogrel (Plavix) 75 mg tablet Indications:NSTEMI (non-ST elevated myocardial infarction) (CMS/HCC),Coronary artery disease involving [place] coronary artery of [place] heart without angina pectorisTake 1 tablet (75 mg) by mouth in the morning for 360 doses. 30 tablet /6Active dapagliflozin propanediol (Farxiga) 10 mg Indications:Acute combined systolic and diastolic heart failure (CMS/HCC)Take 1 tablet (10 mg) by mouth in the morning for 94 doses. 30 tablet 5Active Additional Information Patient not taking.Reported on 08/05/2025 metoprolol succinate XL (Toprol-XL) 100 mg 24 hr tablet Indications:Acute combined systolic and diastolic heart failure (CMS/HCC)Take 1 tablet (100 mg) by mouth in the morning for 93 doses. Do not crush or chew. 30 tablet 5Active sacubitril-valsartan (Entresto) 24-26 mg tablet Indications:Acute combined systolic and diastolic heart failure (CMS/HCC)Take 1 tablet by mouth two times daily. 30 tablet 5Active spironolactone (Aldactone) 25 mg tablet Indications:Acute combined systolic and diastolic heart failure (CMS/HCC)Take 1 tablet (25 mg) by mouth in the morning for 93 doses. 30 tablet 5Active furosemide (Lasix) 20 mg tablet Indications:Acute combined systolic and diastolic heart failure (CMS/HCC)Take 1 tablet (20 mg) by mouth in the morning. 30 tablet 5Active pantoprazole (ProtoNix) 20 mg EC tablet Indications:Coronary artery disease involving [place] coronary artery of [place] heart without angina pectorisTake 1 tablet (20 mg) by mouth before breakfast. Do not crush, chew, or split. 90 tablet /6Active Lactobacillus acidophilus (ACIDOPHILUS ORAL) Take by mouth.Active budesonide-formoteroL (Symbicort) 80-4.5 mcg/actuation inhaler Indications:Pulmonary sarcoidosisInhale 2 puffs in the morning and at bedtime. Rinse mouth with water after use to reduce aftertasteand incidence of candidiasis. Do not swallow. 10.2 Unspecified 504/ctive albuterol (ProAir HFA) 90 mcg/actuation inhaler Indications:Pulmonary sarcoidosisInhale 2 puffs every 4 (four) hours if needed for wheezing or shortness of breath. 25.5 g 111510ctive Active Problems ProblemNoted DateDiagnosed DateCalcified lymph nodes05/19/2025Dysphagia, oropharyngeal phase05/19/2025Multiple pulmonary revdvqj1705/19/2025Postnasal drip 05/19/2025Viral kkfimujos40/17/2025 Assessment & Plan (03/19/2025 11:54 AM EDT): [...] growth on sputum culture - wean steroids Agbfdqzphhi05/17/2025 Assessment & Plan (03/19/2025 11:54 AM EDT): [...] contributing to current clinical presentation Coronary artery lsauovo0903/15/2025 Assessment & Plan (03/19/2025 11:54 AM EDT): [...] and aspirin lifelong -Began having frequent PVCs 5/18, replace K/Mg as appropriate - EP evaluated [...] year and aspirin lifelong Coronary artery disease involving [place] coronary artery of [place] heart without angina hvlngcih27/17/2025 Assessment & Plan (03/19/2025 11:54 AM EDT): - see above Assessment & Plan (03/18/2025 4:00 PM EDT): - see above Assessment & Plan (03/17/2025 4:06 PM EDT): - see above Assessment & Plan (03/16/2025 8:44 AM EDT): - see above Assessment & Plan (03/15/2025 1:28 PM EDT): - see above Yjkfdqmq97/17/2025 Assessment & Plan (03/19/2025 11:54 AM EDT): [...] EDT): -PT/OT -Check TSH Acute hypoxemic respiratory qunnmaa9103/12/2025 Assessment & Plan (03/19/2025 11:54 AM EDT): [...] follow-up Acute combined systolic and diastolic heart tcpsxvz1903/12/2025 Assessment & Plan (03/19/2025 11:54 AM EDT): [...] from cardiology service NSTEMI (non-ST elevated myocardial infarction)03/12/2025 Assessment & Plan (03/19/2025 11:54 AM EDT): - see below Assessment & Plan (03/18/2025 4:00 PM EDT): - see below Assessment & Plan (03/17/2025 4:06 PM EDT): - see below Assessment & Plan (03/16/2025 8:44 AM EDT): - see below Assessment & Plan (03/15/2025 1:28 PM EDT): - see below Body mass index (BMI) 28.0-28.9, adult09/09/2024RLD (chronic restrictive lung disease)09/09/2024OE (dyspnea on exertion)09/09/2024History of severe acute respiratory syndrome coronavirus 2 (SARS-CoV-2) dlvzoyu7709/09/2024Never smoked qbslbiptbp94/11/2024Stage 3a chronic kidney obwrpdo9909/09/2024Epiretinal membrane 10/04/2017Exudative age-related macular qxdirzqmdsnq13/23/2014ctinic keratosis 11/03/2006Benign neoplasm of scalp and skin of neck04/04/2005Benign neoplasm of skin of lower limb, including hip04/04/2005Inflamed seborrheic keratosis 04/04/2005 Encounters DateTypeDepartmentCare McfjIjahzgtxxxa13/07/2025 12:30 PM EDTOffice Visit [facility] [address] [place] [address] [place] [phone] Brandt Helton MD Pulmonary sarcoidosis (Primary Dx); Mediastinal adenopathy; Pulmonary hypertension (CMS/HCC); HFrEF (heart failure with reduced ejection fraction) (CMS/HCC); Coronary artery disease involving [place] coronary artery of [place] heart without angina rcjuilij99/08/2025 2:00 PM EDT - 07/07/2025 11:59 PM EDTHospital Encounter [facility] CT Imaging [address] [place] [id number] Sarcoidosis Discharge Disposition: Home or Self Care ()06/03/2025Telephone [facility] [address] [place] [address] Lori Osborne MA 05/27/2025 1:00 PM EDT - 05/27/2025 11:59 PM EDTHospital Encounter [facility] Pulmonary Function Testing [address] [facility] 3rd [place] [phone] SOTO (dyspnea on exertion) Discharge Disposition: Home or Self Care (01)05/27/2025Orders Only [facility] [address] [place] [phone] Aj Joyner MD 05/22/2025Orders Only [facility] [address] [place] [phone] Prudence Mccoy RN from Last 3 Months Family History RelationNameStatusCommentsFatherDeceasedMotherDeceased Social History Tobacco UseTypesPacks/DayYears UsedDateSmoking Tobacco: NeverPassive Smoke Exposure: NeverSmokeless Tobacco: Never Tobacco Cessation:Counseling Given: Not Answered Alcohol UseStandard Drinks/WeekCommentsNot Currently0 (1 standard drink = 0.6 oz pure alcohol)[facility] UtilitiesAnswerDate RecordedIn the past 12 months has the electric, gas, oil, or water [employer] threatened to shut off services in your home?Patient unable to tholyt2003/12/2025Humiliation, Afraid, Rape, and Kick questionnaireAnswerDate RecordedWithin the last year, have you been afraid of your partner or ex-partner?Patient unable to gnzrks8903/12/2025Emotionally Abused Not on file03/12/2025Physically AbusedNot on file03/12/2025Sexually AbusedNot on file03/12/2025Overall Financial Resource Strain (CARDIA)AnswerDate RecordedHow hard is it for you to pay for the very basics like food, housing, medical care, and heating?Patient unable to geqkie8303/12/2025PHQ-2AnswerDate RecordedPatient Health Questionnaire-2 Mxasj665TransportationAnswerDate RecordedIn the past 12 months, has lack of transportation kept you from medical appointments or from getting medications?Patient unable to jxxohx6503/12/2025Lack of Transportation (Non-Medical)Not on file03/12/2025Housing Stability Vital Sign AnswerDate RecordedIn the last 12 months, was there a time when you were not able to pay the mortgage or rent on time?Patient unable to egdsld9003/12/2025 Number of Times Moved in the Last YearNot on file03/12/2025t any time in the past 12 months, were you homeless or living in a alf (including now)?Patient unable to exhurb5003/12/2025Hunger Vital SignAnswerDate RecordedWithin the past 12 months, you worried that your food would run out before you got the money to buy more.Patient unable to wrhldk5203/12/2025Ran Out of Food in the Last YearNot on file03/12/2025CommentsUnknownSex and Gender InformationValueDate RecordedSex Assigned at AzgkqCemhwr06/09/2025 2:31 PM EDTLegal SexFemale 04/28/2022 12:41 AM EDTGender CisthvunSctlpp10/09/2025 2:31 PM EDTSexual OrientationHeterosexual or Vzvgwoou03/09/2025 2:31 PM EDT Last Filed Vital Signs Vital SignReadingTime TakenCommentsBlood Tabgkuft840/5408/05/2025 12:55 PM EDT Kjijq428608/05/2025 12:55 PM MPWDbtryhmdyua26.6 ??C (97.9 ??F)03/20/2025 11:45 AM EDTRespiratory Gjip152105/19/2025 3:30 PM EDTOxygen Hsloaxmyey25%08/05/2025 12:55 PM EDTInhaled Oxygen Concentration--Jbhfqz53 kg (161 lb)08/05/2025 12:55 PM EDT Lilfqy868.3 cm (5' 3.5 )05/19/2025 3:30 PM EDTBody Mass Index28.0705/19/2025 3:30 PM EDT Plan of Treatment DateTypeDepartmentCare Team (Latest Contact Info)Jocodbdhuua43/05/2025 9:00 AM ESTOffice Visit [facility] [address] [place] [phone] Doug Stern MD [address] [facility] [address] [facility] [place] [phone] 02/10/2026 12:30 PM EDTOffice Visit [facility] [address] [place] [address] [place] [address] Brandt Helton MD [address] [place] [address] Dr [place], [place] [id number] Health MaintenanceDue DateLast DoneCommentsMedicare Annual Wellness (AWV) 1946dult Dlpmobt4312/30/1968Zoster Vaccines (1 of 2)1996COVID-19 Vaccine ( season), 03/25/2021, 03/01/2021 Influenza Vaccine (#1)Fall Risk Oddpzeofc05/21/2026 05/19/2025Depression Ssdqdujam31Pneumococcal Vaccine: 50+ FpbqsMwtzjpqzg64/27/2019, 10/06/2016, 04/09/2015, Additional history existsHIB VaccinesAged OutNo longer eligible based on patient's age to complete this topic HPV VaccinesAged OutNo longer eligible based on patient's age to complete this topicIPV VaccinesAged OutNo longer eligible based on patient's age to complete this topicMeningococcal B VaccineAged OutNo longer eligible based on patient's age to complete this topicMeningococcal VaccineAged OutNo longer eligible based on patient's age to complete this topicRotavirus VaccinesAged OutNo longer eligible based on patient's age to complete this topic Medical Devices ImplantedTypeAreaManufacturerDevice IdentifierShelf Expiration DateModel / Serial / LotStenSkip nolan 2.25 X 38 - [id number] Implanted:Qty: 1 on 03/14/2025 by Doug Stern [facility] Eluting StentN/A: [employer] [id number] 01/16/[id number] / / [id number],Synergy Mr 2.50 X 16 - [id number] Implanted:Qty: 1 on 03/14/2025 by Doug Stern MD [facility] El[facility] StentN/A: [employer] [id number] 11/27/[id number] / / [id number],Synergy Xd Mr 2.5 X48mm - [id number] Implanted:Qty: 1 on 03/14/2025 by Doug Stern MD [facility] StentN/A: [employer] [id number] 09/24/[id number] / / [id number] Procedures Procedure NamePriorityDate/TimeAssociated DiagnosisCommentsCT CHEST WO IV UXMALQXPNemdwuo58/08/2025 2:18 PM EDT Sarcoidosis HC PULM FUNCT TST PLETHYSMOGRAP - AYSVCZLLIJGRUONXmtrzod65/29/2025 2:01 PM EDT SOTO (dyspnea on exertion) from Last 3 Months Results * CT chest wo IV contrast (07/07/2025 2:18 PM EDT)Anatomical RegionLaterality ModalityBody, ChestComputed TomographySpecimen (Source)Anatomical Location / LateralityCollection Method / VolumeCollection TimeReceived Time07/08/2025 7:24 AM EDT Impressions 07/08/2025 7:29 AM [...] 03/12/2025 TECHNIQUE: Routine CT chest without contrast. ??All CT scans at this facility use dose [...] chest without contrast. All CT scans at [facility] use dose modulation, iterative reconstruction, [...] suggested. *Cholelithiasis. Electronically signed: Alexandru Espinoza MD. Authorizing ProviderResult TypeResult StatusZabeverly Helton [facility] PROCEDURESFinal Result * Pulmonary function testing (05/27/2025 2:01 PM EDT)Anatomical RegionLaterality ModalityPulm Lab RoomSpecimen (Source)Anatomical Location / Laterality Collection Method / VolumeCollection TimeReceived Time05/27/2025 1:18 PM EDT Narrative 06/09/2025 8:37 AM EDT PFT Interpretation Name: Leeanne Ugarte ?? Age: 79 y.o. Quality of Data: The [...] and pulmonary hypertension. Clinical correlation is recommended. jA Joyner MD [place] [facility] 05/27/2025 3:37 PM Authorizing ProviderResult TypeResult StatusZaid Sunitha MDPFT ORDERABLESFinal Result from Last 3 Months Insurance Advance Directives * Full Code (Latest Code Status on File) Date ActivatedDate InactivatedComments03/12/2025 5:29 AM03/20/2025 5:16 PM Care Teams Team MemberRelationshipSpecialtyStart DateEnd Date Katerina Mortensen MD [address] [place] [address] [facility]03/19/25
--- NOTE | 2025-08-20 10:47 | XR_ITS ---
The [address] [address] Patient Name: PILO GREGORY MRN: [id number] date: 1945 Sex: F Assigned Patient Location: Current Patient Location: [facility] Accession/Order Number: [id number] Exam Date: 08/20/2025 10:42 Report Date: 08/20/2025 11:09 At the request of: ALEXANDER TOMLIN MD Procedure: XR foot RT min 3V RIGHT FOOT - 3 views CLINICAL DATA: Lump at the lateral right foot for the past 2 weeks. COMPARISON: None AP, lateral and oblique views were obtained. A BB marker was placed the site of concern. There is no evidence of fracture or dislocation. There is soft tissue calcification over a segment of approximately 4 cm of the posterior plantar aponeurosis. There is no focal soft tissue swelling or radiopaque foreign bodies XR/XR foot RT min 3V IMPRESSION: NO ACUTE BONY FINDINGS. Impression dictated by: Darshana Gomez M.D. 08/20/2025 11:09 AM Dictation Location: [place] [address] Electronically authenticated by: [id number] Y Date: 08/20/2025 11:09
--- OUTSIDE RECORDS SUMMARY | 2025-08-20 10:47 | XMS_ITS | CCD ---
Author Organization [facility] Care Team Providers Care Pre Billing Specialist Name Role Phone HERACLIOSYDNEY EMILY D Unavailable Unavailable Alexander Tomlin Unavailable Alexander Tomlin [...] Unavailable NABOR, DR ALEXANDER Aparicio Attending Unavailable WEST, DR [...] Dr. Alexander Nina Primary Care Unav ailable Moha0Kathleen olea Attending Unavailable Tomlin, Dr. Alexander Kelle Primary Care Unav MD Alexander Hudson Primary Care Provider [phone] [facility], DO [place] Attending Provider [facility], [place] Attending Unavailable [facility], [place] Admitting Unavailable Alexander Tomlin Primary Care Unavailable Unavailable Primary Care Provider UnavailAlexander Calderon MD Primary Care Provider [phone] NABOR ALEXANDER E Primary Care Unavailable KATHLEEN CASTRO Attending Unavailable MOHAMUD TOMLINIA E Primary Care Unavailable CATHY BENITEZ Attending Unavailable NABOR, ALEXANDER E Primary Care Unavailable JAMES MO Attending Unavailable MOHAMUD TOMLINIA E Primary Care Unavailable KATHLEEN CASTRO Attending Unavailable GUSTAVO CASTROA Referring Unavailable MOHAMUD TOMLINIA E Primary Care Unavailable CATHY BENITEZ Referring Unavailable TOMLIN, ALEXANDER E Primary Care Unavailable PROVIDER, UNKNOWN Attending Unavailable PROVIDER, UNKNOWN Admitting Unavailable CHOCO LANDAVERDE Attending Unavailable CHOCO LANDAVERDE Attending Unavailable CHOCO LANDAVEDRE Attending Unavailable Alexander Tomlin MD Primary Care Provider Lory Noguera CMA Attending Provider Unavaila Alexander Cummins MD Attending Provider [phone] Edmund MONTIEL-CAbraham Attending Provider Alfred Stern MD, V Attending Provider LIZETH, DELROY T Referring Unavailable LIZETH, DELROY T Referring Unavailable CATALINA, KAYLENE Referring Unavailable ALFRED STERN Referring Unavailable CATALINA, KAYLENE Referring Unavailable CATALINA, KAYLENE Referring Unavailable CATALINA, KAYLENE Referring Unavailable CATALINA, KAYLENE Referring Unavailable MARTA, ROB T Referring Unavailable CATALINA, KAYLENE Admitting Unavailable CAMILO, VIANEY CHUL Attending Unavailable LINDA DAVIS Referring Unavailable CATALINA, KAYLENE Referring Unavailable CATALINA, KAYLENE Referring Unavailable MOUKAALFRED BUCK Attending Unavailable LIZETH, DELROY T Referring Unavailable FOREIGN, LYNDSEY Attending Unavailable FOREIGNOLUID Attending Unavailable LESLEE, IVANEY CHUL Referring Unavailable ABRAHAM BLACKMON Attending Unavailable FOREIGN, LYNDSEY Referring Unavailable CAMILO, VIANEY CHUL Referring Unavailable Alexander Tomlin MD Primary Care Provider [phone] Alexander Tomlin MD Attending Provider Allergies Allergy ClassificationReported Allergen(s)Allergy TypeDate of OnsetReaction(s) Facility (18 sources)Iodine; Translations: [IODINE]Drug Qqmrpyf06-50-8757HkzmCfcrfmdptMem[facility] Medications Current Medications MedicationDrug Class(es)DatesSig (Normalized)Sig (Original)0.05 ml aflibercept 40 mg/ml injection (7 sources)Vascular Endothelial Growth Factor Inhibitoraflibercept (Eylea) 2 MG/0.05ML intra-ocular injection 2 mg by Intravitreal route Activeaflibercept (Eylea) 2 mg/0.05 mL intra-ocular injection 0.05 mL (2 mg) by intravitreal route 1 time. Every 4 months [id number] 200 actuat albuterol 0.09 mg/actuat metered dose inhaler (20 sources)beta2-Adrenergic AgonistStart: 67-67-2913rdfo 1 puff(s) by inhalation every six hours as needed for wheezingAlbuterol Sulfate 90 mcg/actuation HFA aerosol inhaler Active 2 PUFF INHALATION Every 6 hours as nee ded for shortness of breath or wheezing 1 0 April 15, 2025 12:00am Complies with drug therapyStart: 12-27-2023 End: 23-31-4931cxhv 1 puff(s) by inhalation every four hours as neededAlbuterol Sulfate 90 mcg/actuation HFA aerosol inhaler Discontinued 1 PUFF INHALATION Every 4 hoursFebruary 2023 1:00am August 02, 2024 10:38am FreeTextSi puff as needed Inhalation every4 hrs; Note: Source Status: Taking; Provider: Nabor Borges ( )Start: 42-92-1059Mzjzbscn HFA 108 (90 Base) MCG/ACT inhaler 11/29/2022 ActiveStart: 52-91-6662sywx 2 puff(s) by mouth every four hours as neededVentolin HFA 108 (90 Base) MCG/ACT inhaler INHALE 2 PUFFS BY MOUTH EVERY 4 HOURS NEEDED FOR SHORTNESS OF BREATH 11/29/2022 Activetake 1 puff(s) by inhalation every four hours as neededAlbuterol Sulfate HFA 108 (90 Base) MCG/ACT 1 puff as needed Inhalation every 4 hrs Activeaspirin 81 mg oral tablet (6 sources)Platelet Aggregation Inhibitor, Nonsteroidal Anti-inflammatory Drug Start: 04-15-2025 End: 49-49-2081jrqa 1 tablet by mouth once dailyAspirin 81 mg tablet Active 81 MG PO Daily 90 May 15, 2025 2:07pm Complies with drug therapytake 1 tablet by mouth once dailyaspirin 81 MG EC tablet Take 81 mg by mouth Daily Rcjkok88 actuat budesonide 0.08 mg/actuat / formoterol fumarate 0.0045 mg/actuat metered dose inhaler (5 sources)Corticosteroid, beta2-Adrenergic AgonistStart: 29-25-3043Enqkzdrun 80-4.5 MCG/ACT inhaler every 12 (twelve) hours 04/02/2024 Activeclopidogrel 75 mg oral tablet (6 sources)P2Y12 Platelet InhibitorStart: 04-15-2025 End: 35-51-4970psom 1 tablet by mouth once dailyClopidogrel 75 mg tablet Active 75 MG PO Daily 90 0 June 06, 2025 8:27am Complies with drug therapy fluticasone propionate 0.05 mg/actuat metered dose nasal spray (9 sources)Corticosteroidfluticasone (Flonase) 50 MCG/ACT nasal spray 1 spray in the morning. Activetake 1 spray(s) nasal route once dailyfluticasone (Flonase) 50 mcg/actuation nasal spray Administer 1 spray into each nostril once daily. Shake gently. Before first use, prime pump. After use, clean tip and replace cap. Obukhl84 actuat fluticasone furoate 0.1 mg/actuat / umeclidinium 0.0625 mg/actuat / vilanterol 0.025 mg/actuat dry powder inhaler (5 sources)Anticholinergic, Corticosteroid, beta2-Adrenergic AgonistStart: 08-68-2386Znkczak Ellipta 100-62.5-25 MCG/ACT aerosol powder 12/11/2024 Active Start: 61-62-0629euxy 1 puff(s) by inhalation once dailyTrelegy Ellipta 100-62.5-25 MCG/ACT aerosol powder INHALE 1 PUFF EVERY DAY 12/11/2024 Active ammonium lactate 120 mg/ml topical cream (8 sources)Start: 11-22-2022 End: 66-20-6916qayplswh lactate (Amlactin) 12 % cream Indications: Xerosis cutis Apply topically Daily as needed for dry skin 145 g 11 01/30/2025 03/01/2025 Mlsgvb84 hr metoprolol succinate 100 mg extended release oral tablet (6 sources)beta-Adrenergic BlockerStart: 04-15-2025 End: 09-69-4196aljo 1 tablet by mouth once dailyMetoprolol Succinate 100 mg tablet extended release 24 hr Active 100 MG PO Daily 90 June 06, 2025 8:27am Complies with drug therapytake 1 tablet by mouth in the morningmetoprolol tartrate (Lopressor) 100 MG tablet Take 100 mg by mouth in the morning and 100 mg beforebedtime. ActiveMultiple Vitamin (Multi-Vitamin) tablet (5 sources)take 1 tablet by mouth in the morningMultiple Vitamin (Multi-Vitamin) tablet Take 1 tablet by mouth in the morning. Activemultivitamin tablet (5 sources)take 1 tablet by mouth once dailymultivitamin tablet Take 1 tablet by mouth once daily. ActiveNo Name (No Known Home Meds) (1 source)Start: 76-03-4451Xo Name (No Known Home Meds) Active August 02, 2024 12:00amsaccharomyces boulardii 250 mg oral capsule (4 sources)Start: 04-15-2025 End: 49-29-6710suvq 1 capsule by mouth twice dailySaccharomyces Boulardii (Daily Probiotic (S. Boulardii)) 250 mg capsule Active 250 MG PO Twice daily June 06, 2025 8:27am Complies with drug therapysacubitril 24 mg / valsartan 26 mg oral tablet (6 sources)Angiotensin 2 Receptor BlockerStart: 04-15-2025 End: 11-37-6405xjyq 1 tablet by mouth twice dailySacubitril-Valsartan (Entresto) 24-26 mg tablet Active 1 TAB PO Twice daily 60 3 May 12, 2025 8:16am Complies with drug therapytake 1 tablet by mouth in the morningsacubitril- valsartan (Entresto) 24-26 MG tablet Take 1 tablet by mouth in the morning and 1 tablet before bedtime. Activetriamcinolone acetonide 1 mg/ml topical cream (8 sources)CorticosteroidStart: 57-20-3920lcwhvikxifkbr (Kenalog) 0.1 % cream Indications: Other atopic dermatitis Apply topically 2 (two) times a day as needed (Rash) 60 g 11 09/05/2024 Active Completed/Discontinued Medications MedicationDrug Class(es)DatesSig (Normalized)Sig (Original)alendronic acid 70 mg / cholecalciferol 2800 unt oral tablet (2 sources)Bisphosphonate, Vitamin DStart: 04-15-2025 End: 76-80-5354kays 1 tablet by mouth every weekAlendronate-Vitamin D3 (Fosamax Plus D) 70 mg- 2,800 unit tablet Discontinued 1 TAB PO every week 30 April 15, 2025 12:00am April 15, 2025 12:45pmascorbic acid 1000 mg oral tablet (8 sources)Vitamin CStart: 04-15-2025 End: 62-10-7219yqlv 1 tablet by mouth once dailyAscorbic Acid (Vitamin C) 1,000 mg tablet Discontinued 1000 MG PO Daily 30 5 June 16, 2025 8:26am July 08, 2025 11:07amtake 1 tablet by mouth once dailyAscorbic Acid (vitamin C) 100 MG tablet Take 100 mg by mouth Daily Activeatorvastatin 40 mg oral tablet (8 sources)HMG-CoA Reductase InhibitorStart: 04-15-2025 End: 45-19-4693ntin 1 tablet by mouth once dailyAtorvastatin 40 mg tablet Discontinued 40 MG PO Daily 30 0 May 30, 2025 3:41pm June 0353:00pm azithromycin 250 mg oral tablet (6 sources)Macrolide AntimicrobialStart: 10-25-2024 End: 60-11-2579Jskvhzpnmwbj 250 mg tablet Discontinued 0 PO daily 6 5 0 October 25, 2024 1:00am April 150:40am Acute maxillary sinusitis Acute maxillary sinusitis, unspecified Take 2 on day 1 and then take 1 for the next 4 days (days 2-5)Start: 12-27-2023 End: 46-24-6047wvxa 2 tablets by mouth once daily, then take 1 tablet by mouth once dailyAzithromycin 250 mg tablet Discontinued TAB PO Daily December 27, 2023 1:00am December 29, 2023 12:16pm FreeTextSig: as directed Orally 2 tabs po today, then 1 tab daily x 4 more days; Note: Source Status: Start; Refills: 0; Provider: Nabor Borges Ebenzonatate 100 mg oral capsule (2 sources)Non-narcotic AntitussiveStart: 04-15-2025 End: 89-34-9070jrmz 1 capsule by mouth twice daily as needed for cough Benzonatate 100 mg capsule Discontinued 100 MG PO Twice daily as needed for cough 30 0 April 15, 2025 12:00am July 08, 2025 10:45amcefdinir 300 mg oral capsule (2 sources)Cephalosporin AntibacterialStart: 09-23-2024 End: 62-95-1966bxaq 1 capsule by mouth twice dailyCefdinir 300 mg capsule Discontinued 300 MG PO Twice daily 14 0 September 23, 2024 1:00am 2023 10:40amdapagliflozin 10 mg oral tablet (2 sources)Sodium-Glucose Cotransporter 2 InhibitorStart: 04-15-2025 End: 96-60-9293ebxm 1 tablet by mouth once dailyDapagliflozin Propanediol 10 mg tablet Discontinued 10 MG PO Daily 30 0 April 15, 2025 12:00am April 15, 2025 10:47amdiphenhydrAMINE hydrochloride 50 mg oral capsule (4 sources)Histamine-1 Receptor AntagonistStart: 04-15-2025 End: 97-53-2859xrav 1 capsule by mouth once as neededDiphenhydramine Hcl 50 mg capsule Discontinued 50 MG PO Once as needed April 15, 2025 10:44am 2024 12:36pmEye Drops SOLN (4 sources)Eye Drops SOLN as directed Quantity: 0 Refills: 0 Ordered: 13-Feb-2023 DO Activefurosemide 20 mg oral tablet (8 sources)Loop DiureticStart: 04-15-2025 End: 60-27-7601vqdi 1 tablet by mouth once dailyFurosemide 20 mg tablet Discontinued 20 MG PO Daily 30 0 May 30, 2025 3:40pm June 03, 2025 3:00pm loratadine 10 mg oral tablet (14 sources)Start: 04-15-2025 End: 95-43-6097mzrg 1 tablet by mouth once dailyLoratadine 10 mg tablet Discontinued 10 MG PO Daily 30 2 May 15, 2025 12:36pm July 08, 2025 10:45amStart: 12-29-2023 End: 67-22-2135zzra 1 tablet by mouth once dailyLoratadine (Claritin) 10 mg tablet Discontinued 10 MG PO Daily December 29, 2023 1:00am August 02, 2024 10:38amtake 1 tablet by mouth once dailyLoratadine 10 MG Oral Tablet TAKE 1 TABLET DAILY. Quantity: 0 Refills: 0 Ordered: 13-Feb-2023 DO Active methylPREDNISolone 4 mg oral tablet (4 sources)CorticosteroidStart: 12-27-2023 End: 02-45-3509Nqnkkvdtrdrippfvco 4 mg tablets,dose pack Discontinued MG PO As Directed December 27, 2023 1:00amMarc2023 12:16pm FreeTextSig: as directed Orally; Note: Source Status: Start; Refills: 0; Qty: 1 Packet; Provider: Nabor Borges EStart: 12-27-2023 End: 88-25-8313Rkpdpeudvwqivvhkwc Discontinued MG PO As Directed December 27, 2023 1:00am December 29, 2023 12:16pm FreeTextSig: as directed Orally; Note: Source Status: Start; Refills: 0; Qty: 1 Packet; Provider: Nabor Aparicio nitroglycerin 0.4 mg sublingual tablet (2 sources)Nitrate VasodilatorStart: 57-22-7929Xuqtqbeginxtn 0.4 MG Sublingual Tablet Sublingual PL[address] 1 TABLET UNDER THE TONGUE EVERY 5 MINUTES FOR UP TO 3 DOSES NEEDED FOR CHEST PAIN.CALL 911 IF PAIN PERSISTS. Quantity: 25 Refills: 3 Ordered: 13-Feb-2023 Kathleen Castro MD Start : 13-Feb-2023 Activepantoprazole 20 mg delayed release oral tablet (2 sources)Proton Pump InhibitorStart: 07-08-2025 End: 75-06-6139lgso 1 tablet by mouth once dailyPantoprazole 20 mg tablet,delayed release (DR/EC) Discontinued 20 MG PO Daily July 08, 2025 12:00am July 08, 2025 11:07amspironolactone 25 mg oral tablet (8 sources)Aldosterone AntagonistStart: 04-15-2025 End: 30-14-3995mkyf 1 tablet by mouth once dailySpironolactone 25 mg tablet Discontinued 25 MG PO Daily 30 0 May 30, 2025 3:41pm June 03, 2025 3:00pm Problems Active Problems Problem ClassificationProblemDateDocumented DateEpisodic/ChronicAbdominal pain (8 sources)Epigastric pain; Translations: [Epigastric pain]59-75-1855Zhxxavzt Acute myocardial infarction (6 sources)Myocardial infarction; Translations: [Non-ST elevation (NSTEMI) myocardial infarction]Onset: 458521-82-4906BewstkdInwvuunesndwlr/social admission (2 sources)Follow-up status; Translations: [Other specified counseling]Episodic Allergic reactions (2 sources)Atopic dermatitis; Translations: [Other atopic dermatitis]09-05-2024 ChronicChronic kidney disease (13 sources)Chronic kidney disease stage 3A ; Translations: [Chronic kidney disease, Stage III (moderate)]Onset: 533720-65-5314QsqsckpNmfvzsm kidney disease (2 sources)Chronic kidney disease; Translations: [Chronic kidney disease, stage 3a (Multi)]Onset: 98-43-9099Itqqrquhwq heart failure; nonhypertensive (14 sources)Chronic systolic heart failure; Translations: [Chronic systolic (congestive) heart failure]Onset: 464693-14-3102JzevmvpXrzguwpn atherosclerosis and other heart disease (6 sources)Coronary atherosclerosis due to calcified coronary lesion; Translations: [Ischemic cardiomyopathy]Onset: 73-55-8822LatynzgFvvqjspf atherosclerosis and other heart disease (2 sources)Coronary atherosclerosis and other heart disease; Translations: [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]Onset: 67-45-0017Vmcnsejmp of lipid metabolism (20 sources)Hyperlipidemia; Translations: [Other and unspecified hyperlipidemia] Onset: 03-02-2023 Resolved: 57-03-3487NqcuhhsM Codes: Natural/environment (2 sources)Insect bite - wound; Translations: [Bitten or stung by nonvenomous insect and other nonvenomous arthropods, initial encounter]13-74-8638Oytepfzn Genitourinary symptoms and ill-defined conditions (4 sources)Increased frequency of urination; Translations: [Frequency of micturition]77-51-4095FpqsqsioWdzbbtfj disorders (20 sources)Sarcoidosis; Translations: [Sarcoidosis, unspecified]Onset: 514252-53-6060EmpczjwKktjijdvi of unspecified nature or uncertain behavior (2 sources)Neoplastic disease; Translations: [Neoplasm of unspecified behavior of bone, soft tissue, and skin]03-62-4383CjzpdcvwBbqfzjkbluc chest pain (12 sources)Tight chest; Translations: [Other chest pain]Onset: 02-27-2023 EpisodicOther circulatory disease (2 sources)Spider nevus; Translations: [Nevus, non-neoplastic]84-10-1759Gacfjrcl Other connective tissue disease (5 sources)Muscle pain; Translations: [Myalgia, unspecified site]EpisodicOther connective tissue disease (1 source)Myalgia, unspecified site; Translations: [Myalgia]EpisodicOther diseases of veins and lymphatics (4 sources)Calcified lymph nodes; Translations: [Other specified noninfective disorders of lymphatic vessels and lymph nodes]39-13-9784ZhzdwcaXistf diseases of veins and lymphatics (1 source)Other specified noninfective disorders of lymphatic vessels and lymph nodes; Translations: [Other noninfectious disorders of lymphatic channels] 45-22-5436YmaqtvxOflok lower respiratory disease (15 sources)Dyspnea on exertion; Translations: [Other forms of dyspnea]Onset: 371835-28-4484UmdexwymZupnk lower respiratory disease (12 sources)Dyspnea; Translations: [Shortness of breath]Onset: 01-04-2023 EpisodicOther lower respiratory disease (9 sources)Multiple nodules of lung; Translations: [Other nonspecific abnormal finding of lung field]83-75-5850EfegixzsLbrwj lower respiratory disease (6 sources)Lung field abnormal; Translations: [Other nonspecific abnormal finding of lung field]EpisodicOther lower respiratory disease (6 sources)Other forms of dyspnea; Translations: [OTHER FORMS OF DYSPNEA]Onset: 74-36-0498EpbtglfxXbkby lower respiratory disease (4 sources)Dyspnea, unspecified; Translations: [DYSPNEA UNSPECIFIED]Onset: 40-59-7102RwmsxiqmNkrpm lower respiratory disease (1 source)Other abnormalities of breathingEpisodicOther lower respiratory disease (3 sources)Shortness of breath; Translations: [SHORTNESS OF BREATH]Onset: 94-84-1102IvvptvveTmrqy lower respiratory disease (7 sources)Other nonspecific abnormal finding of lung field; Translations: [Other nonspecific abnormal findingof lung field]Onset: 80-39-2430ChaejyjnJxklj lower respiratory disease (10 sources)Restrictive lung disease; Translations: [Other diseases of lung, not elsewhere classified]Onset: 152659-76-0334EbimbcxrOectu non-epithelial cancer of skin (2 sources)History of malignant neoplasm of skin; Translations: [Personal history of other malignant neoplasm of skin]21-30-6369RpaflsbjZybgv nutritional; endocrine; and metabolic disorders (4 sources)Obesity; Translations: [Obesity, unspecified]ChronicOther screening for suspected conditions (not mental disorders or infectious disease) (7 sources)Abnormal electrocardiogram [ECG] [EKG]; Translations: [Encounter for screening mammogram for malignant neoplasm of breast]Onset: 45-66-0875Zhnfvsxt Other skin disorders (2 sources)Inflamed seborrheic keratosisEpisodicOther skin disorders (6 sources)Actinic keratosis; Translations: [Actinic keratosis]09-05-2024 EpisodicOther skin disorders (2 sources)Asteatosis cutis; Translations: [Xerosis cutis]08-86-2938Ajdfhpqd Other skin disorders (4 sources)Seborrheic keratosis; Translations: [Other seborrheic keratosis] 48-70-1251StsqaldiJhlpk skin disorders (2 sources)Lentiginosis; Translations: [Other melanin hyperpigmentation] 08-12-5776WdeltytdMpuxq skin disorders (2 sources)Sebaceous hyperplasia; Translations: [Other specified follicular disorders]25-51-3685CgmnklooMimbj skin disorders (2 sources)Inflamed seborrheic keratosis; Translations: [Inflamed seborrheic keratosis]83-00-4916UnkdjnacOiuoi skin disorders (3 sources)Mass of foot; Translations: [Localized swelling, mass and lump, right lower limb]EpisodicOther upper respiratory infections (2 sources)Acute maxillary sinusitis; Translations: [Acute maxillary sinusitis, unspecified]11-26-5604TatgfrniZchsocjt codes; unclassified (1 source)Kidney donor; Translations: [Kidney donor]Onset: 73-18-4472Bymkawkq Residual codes; unclassified (5 sources)Localized edema; Translations: [LOCALIZED EDEMA]Onset: 01-16-2023 EpisodicResidual codes; unclassified (7 sources)Never smoked tobacco; Translations: [Other specified health status] Onset: 304778-81-7811IgmwhvtgEhgahcqqehhi (1 source)Personal history of COVID-19; Translations: [Personal history of COVID-19]Onset: 94-05-9186Qgvbakojnbvd (2 sources)R22.41 - Localized swelling, mass and lump, right lower limb Past or Other Problems Problem ClassificationProblemDateDocumented DateEpisodic/ChronicBiliary tract disease (2 sources)Calculus of gallbladder without cholecystitis without obstruction; Translations: [Calculus of gallbladder without cholecystitis without obstruction]Onset: 31-56-8359HucvdtunQvaynjy and fatigue (2 sources)Weakness; Translations: [Weakness]Onset: 31-57-0440JwqkhzjsMyfxa infections; including parasitic (10 sources)Personal history of other infectious and parasitic diseases; Translations: [Personal history of COVID-19]Onset: 400554-60-9931Vuirfkiz Other lower respiratory disease (2 sources)Other disorders of lung; Translations: [Other disorders of lung] Onset: 93-54-6365TmtackxsYnmnd nutritional; endocrine; and metabolic disorders (8 sources)Overweight in adulthood with body mass index of 25 or more but less than 30; Translations: [Body mass index (BMI) 28.0-28.9, adult]Onset: 09-09-2024 72-20-3184BecmnhgnDjoof nutritional; endocrine; and metabolic disorders (1 source)Body mass index (BMI) 28.0-28.9, adult; Translations: [Body mass index (BMI) 28.0-28.9, adult]Onset: 07-08-0709NcekheijCosbhxlcv (except that caused by tuberculosis or sexually transmitted disease) (2 sources)Viral pneumonia, unspecified; Translations: [Viral pneumonia, unspecified]Onset: 13-61-1847PkmiudirRyljjuat codes; unclassified (1 source)Family history of malignant neoplasm of breast; Translations: [FAMILY HX MALIG NEOPLASM OF BREAST]Onset: 66-81-8639JpdjlfceAdoxlklk codes; unclassified (2 sources)Other specified health status; Translations: [Other specified health status]Onset: 19-66-4140FbexkwcwExemphsqqnb failure; insufficiency; arrest (adult) (2 sources)Acute respiratory failure with hypoxia; Translations: [Acute respiratory failure with hypoxia]Onset: 08-38-0720HghsmkexLbctvgotzoqc (6 sources)History of COVID-19; Translations: [History of COVID-19]Unclassified (4 sources)Patient status finding; Translations: [Patient new to provider] Unclassified (4 sources)Never smoked tobacco; Translations: [Never a smoker]Unclassified (5 sources)Onset: 09-09-2024 Resolved: 819507-15-8961Jmjeddituqyh (1 source)Personal history of COVID-19; Translations: [Personal history of COVID-19]Onset: 09-09-2024 Results Test NameValueInterpretationReference RangeFacilityCT CHEST WO IV CONTRASTon 09-17-5975LS CHEST WO IV CONTRASTInvalid Interpretation CodeMercy Health Urbana [id number] Lori Price MA Please tell her the cholesterol is very good. Continue same and follow up as planned. LVM left for patient to advise her of Dr. Stern's findings.NormalUnMercy Health St. Charles HospitalOrders Onlyon 49-25-9085Hshyjw OnlyNormalUniversity of Pampa Regional Medical CenterOrders Onlyon 37-54-5443Jmgnba OnlyNormalUniversity of Pampa Regional Medical CenterCholesterol in LDL Calc [Mass/Vol]Ordered By: Alfred Stern on 60-89-4104Wvpxkgleqjv in LDL [Mass/Vol]45.4 mg/dLBarney Children'S Medical CenterComment on above:<100 mg/dl FFXHRWI862-803 mg/dl NEAR OR ABOVE RMHLRLE080-094 mg/dl BORDERLINE AXTN800-269 mg/dl HIGH>190 mg/dl VERY HIGH Cholesterol in VLDL Calc [Mass/Vol]Ordered By: Alfred Stern on 05-21-2025 Cholesterol in VLDL [Mass/Vol]16.6 mg/dLBarney Children'S Medical Center Laboratory - Chemistry and Chemistry - challengeOrdered By: Alfred Stern on 40-83-2531Unciikwrtgk [Mass/Vol]112 mg/dL<=200[facility] Cholesterol in HDL [Mass/Vol]50 mg/hJ17-00YvnqgveyeBarney Children'S Medical Center Comment on above:> or =60 mg/dl - LOW CARDIOVASCULAR RISK<40 mg/dl - HIGH CARDIOVASCULAR RISKTriglyceride [Mass/Vol]83 mg/dL<=150Ohio State Health Systemerum or plasma total cholesterol/high density lipoprotein (HDL) cholesterol mass ratOrdered By: Alfred Stern on 05-21-2025 Cholesterol.total/Cholesterol in HDL [Mass ratio]2.2 {ratio}[facility] Children'S Medical CenterComment on above:3.3 - 4.4 LOW RISK4.4 - 7.1 AVERAGE RISK7.1 - 11.0 MODERATE RISK>11.0 HIGH RISKConsulton 13-44-1557UlernltWsqhekVzuwyyyeev of [place] [facility] Nvrxti73sy 67-04-935886Rvo Abraham Blackmon CNP- patient can mail back LifeVest due to recovered EF on echo yesterday. Leigh in [facility] cardiac rehab made patient aware.CentervilleGlomerular filtration rate (GFR) estimation in non- AmericanOrdered By: Abraham Blackmon on 69-52-7437SUW/1.73 sq M.predicted among non- blacks MDRD (S/P/Bld) [Vol rate/Area]48 mL/min/{1.73_m2}Low>=60 mL/min/1.73m 2 [facility] CenterLaboratory - Chemistry and Chemistry - challengeOrdered By: Abraham Blackmon on [id number] [Mass/Vol]10.0 mg/dL 8.5-10.1FProMedica Defiance Regional HospitalChloride [Moles/Vol]106 mmol/L98-107 [facility] CenterCO2 [Moles/Vol]30.5 mmol/L21.0-32.0[facility] CenterCreatinine [Mass/Vol]1.11 mg/dLHigh0.55-1.02[facility] Medical CenterGFR/1.73 sq M.predicted MDRD (S/P/Bld) [Vol rate/Area]58 mL/min/{1.73_m2}Low>=60 mL/min/1.73m 2FProMedica Defiance Regional HospitalGlucose [Mass/Vol]93 mg/jQ98-890OvfpyklfmBarney Children'S Medical CenterPotassium [Moles/Vol] 4.6 mmol/L3.5-5.1FKindred Hospital Limaodium [Moles/Vol]144 mmol/L 136-145[facility] Medical CenterUrea nitrogen [Mass/Vol]16.0 mg/dL 7.0-18.0[facility] Medical CenterUrea nitrogen/Creatinine [Mass ratio] 14.4 mg/mgOhio State Health Systemerum or plasma anion gap determinationOrdered By: Abraham Blackmon on 95-46-4234Jovcd gap [Moles/Vol]12.1 mmol/LFProMedica Defiance Regional HospitalNo Panel Informationon 86-18-0818BXMM Bgddrputgg67ed 91-42-018364OfmhzyDunzfgqkzq [facility] Documentationon 42-12-0656EiyockfbomjuqCnypkyEdwajyhlis of [facility] 30on 51-54-713137Nsk patient is Moderately Stable - Low risk of patient condition declining or worsening The patient's goals for the shift include Comfort and rest The clinical goals for the shift include VSS and safetyNormalUniversAdams County HospitalBASIC METABOLIC PANELon 15-98-7577Mfvyk gap [Moles/Vol]7 mmol/LNormal7-20UnMercy Health St. Charles HospitalComment on above:Performed By: #### [id number] ####[facility] ([facility])[address] [place] [address] Calcium [Mass/Vol]8.5 mg/dLLow8.6-10.3UnMercy Health St. Charles HospitalComment on above:Performed By: #### [id number] ####[facility] ([facility])[address] [place] [address]Nglnebrr [Moles/Vol]106 mmol/PXntklc86-497KavxgrehtvMercy Health St. Charles HospitalComment on above:Performed By: #### [id number] ####[facility] ([facility])[address] [place] [address]HT3 [Moles/Vol]29 mmol/LNormal 21-31UnMercy Health St. Charles HospitalComment on above:Performed By: #### [id number] ####[facility] ([facility])[address] [place] [address]Fijgoyunds [Mass/Vol]0.90 mg/dLNormal0.60-1.20UnMercy Health St. Charles HospitalComment on above:Performed By: #### [id number] ####[facility] ([facility])[address] [place] [address]VHSRZBFERU FILTRATION RATE ML/MIN/1.73 SQ M.FUHXIDGYJ39.4 mL/min/1.73m*2Normal>60.0UnMercy Health St. Charles HospitalComment on above: Result Comment: The [facility]???s estimated glomerular filtration rate (eGFR) will [...] potential consequences that do not disproportionately affect anyone group of individuals.Performed By: #### [id number] ####[facility] ([facility])[address] [place] [address]Vjascfx [Mass/Vol]90 mg/kYNjmdhk79-591QsjykipadtMercy Health St. Charles HospitalComment on above:Performed By: #### [id number] ####[facility] ([facility])[address] [place] [address]Zecbgdyjj [Moles/Vol]3.8 mmol/LNormal3.5-5.1UnMercy Health St. Charles HospitalComment on above:Performed By: #### [id number] ####[facility] ([facility])[address] [place] [address] Sodium [Moles/Vol]138 mmol/XGvmdkw420-274OzqyavtqeaMercy Health St. Charles Hospital Comment on above:Performed By: #### [id number] ####[facility] ([facility])[address] [place] [address]Lqhe nitrogen [Mass/Vol]19 mg/dLNormal7-25 [facility] HospitalComment on above:Performed By: #### [id number] ####[facility] ([facility])[address] [place] [address]PPRQ NITROGEN/CREATININE (MASS RATIO) IN SER/PLAS21.1NormalUnMercy Health St. Charles HospitalComment on above:Performed By: #### [id number] ####[facility] ([facility])[address] [place] [address]TAP WITH AUTO DIFFERENTIALon 40-80-9649Sygjgrbsw (Bld) [#/Vol]0.00 10*3/uLNormal0.00-0.20UnMercy Health St. Charles HospitalComment on above:Performed By: #### [id number] ####[facility] ([facility])[address] [place] [address]Hpbhxxoxh/100 WBC (Bld)0.0 %Normal 0.0-1.0UnMercy Health St. Charles HospitalComment on above:Performed By: #### [id number] ####[facility] ([facility])[address] [place] [address] Eosinophils (Bld) [#/Vol]0.24 10*3/uLNormal0.00-0.50UnMercy Health St. Charles HospitalComment on above:Performed By: #### [id number] ####[facility] ([facility])[address] [facility] [place] [address]Pkuiwwocfkj/100 WBC (Bld)3.8 %Normal 0.0-6.0UnMercy Health St. Charles HospitalComment on above:Performed By: #### [id number] ####[facility] ([facility])[address] [place] [address] Erythrocyte distribution width (RBC) [Ratio]13.3 %Wbuvfw04.5-15.0UnMercy Health St. Charles HospitalComment on above:Performed By: #### [id number] ####[facility] [place], [place] [address]HRYDFWRAYWX MEAN CORPUSCULAR HEMOGLOBIN CONCENTRATION (G/DL) BY RIGBNWHHC88.8 g/dSVtvdkt76.0-35.0 [facility] HospitalComment on above:Performed By: #### [id number] ####[facility] ([facility])[address] [place] [address]Wyznofsomh (Bld) [Volume fraction]34.5 %Low36.0-45.0UnMercy Health St. Charles HospitalComment on above:Performed By: #### [id number] ####[facility] ([facility])[address] [place], [place] [address]Qwfzuuqjzc (Bld) [Mass/Vol]11.3 g/dLLow12.0-15.0UnMercy Health St. Charles HospitalComment on above:Performed By: #### [id number] ####[facility] ([facility])[address] [place], [place] [address]Kdjvmyns granulocytes (Bld) [#/Vol]0.06 10*3/uLNormal0.00-0.20UnMercy Health St. Charles Hospital Comment on above:Performed By: #### [id number] ####[facility] ([facility])[address] [place], [place] [address]Fcngtjen granulocytes/100 WBC (Bld)0.9 %Normal 0.0-1.0UnMercy Health St. Charles HospitalComment on above:Performed By: #### [id number] ####[facility] ([facility])[address] [place] [address] Lymphocytes (Bld) [#/Vol]0.71 10*3/uLLow1.20-4.00UnMercy Health St. Charles HospitalComment on above:Performed By: #### [id number] ####[facility] ([facility])[address] [place] [address]Evilunkylao/100 WBC (Bld)11.2 %Low 20.0-45.0UnMercy Health St. Charles HospitalComment on above:Performed By: #### [id number] ####[facility] ([facility])[address] [place], [place] [address]THG (RBC) [Entitic mass]30.7 wmTpibdz88.0-33.0UnMercy Health St. Charles Hospital Comment on above:Performed By: #### [id number] ####[facility] ([facility])[address] [place], [place] [address]LOS (RBC) [Entitic vol]93.8 tHEldyap14.0-98.0 [facility] HospitalComment on above:Performed By: #### [id number] ####[facility] ([facility])[address] [place], [place] [address]Dcuanlwtl (Bld) [#/Vol]0.66 10*3/uLNormal0.10-1.00UnMercy Health St. Charles HospitalComment on above:Performed By: #### [id number] ####[facility] ([facility])[address] [place], [place] [address]Suerzagik/100 WBC (Bld)10.4 %Normal5.0-12.0UnMercy Health St. Charles HospitalComment on above:Performed By: #### [id number] ####[facility] ([facility])[address] [facility], [place] [address]Jyquvambbve (Bld) [#/Vol] 4.67 10*3/uLNormal1.60-7.60UnMercy Health St. Charles HospitalComment on above: Performed By: #### [id number] ####[facility] ([facility])[address] [place] [address]Ivpgtrvooxj/100 WBC (Bld)73.7 %High40.0-72.0UnMercy Health St. Charles HospitalComment on above:Performed By: #### [id number] ####[facility] ([facility])[address] [place] [address]SWJB (PER 100 WBCS) BY AUTOMATED COUNT0.0 %Hbgwre7WibufmbvebMercy Health St. Charles HospitalComment on above: Performed By: #### [id number] ####[facility] ([facility])[address] [place] [address]PKQJAQHIM (10*3/UL) IN BLOOD AUTOMATED NAIPF116 10*3/uLNormal 150-400UnMercy Health St. Charles HospitalComment on above:Performed By: #### [id number] ####[facility] ([facility])[address] [place] [address]TAX (Bld) [#/Vol]3.68 10*6/uLLow3.80-5.00UnMercy Health St. Charles HospitalComment on above:Performed By: #### [id number] ####[facility] ([facility])[address] [place] [address]WLK (Bld) [#/Vol]6.34 10*3/uLNormal4.00-10.60UnMercy Health St. Charles HospitalComment on above:Performed By: #### [id number] ####[facility] ([facility])[address] [place] [address]SMdf 80-00-4761RGQlaayf [facility] HospitalMAGNESIUMon 25-84-3491Nfnwtusrj [Mass/Vol]2.0 mg/dLNormal1.9-2.7UnMercy Health St. Charles HospitalComment on above:Performed By: #### [id number] ####[facility] ([facility])[address] [place] [address]Knozeh Onlyon 69-03-3384Aciyub [id number] Pilo Gregory 1945 F Date Provider Department Center 03/20/2025 [id number], HISTORICAL CARD [facility] No family history on fileNormalUniversity [facility] CampusTelephoneon 44-57-2347YjzqpqrldUrpyxwUwniyjfako [facility]30on NormalUnMercy Health St. Charles Hospital30NormalUniversity [facility]30The patient is Moderately Stable - Low risk of patient condition declining or worsening The patient's goals for the shift include Comfort and rest The clinical goals for the shift include VSS and safetyNormalUniversAdams County HospitalB-TYPE NATRIURETIC PEPTIDEon 89-54-4514Pjehlvbcqlx peptide B (Bld) [Mass/Vol]230 pg/mLHigh0-100UnMercy Health St. Charles HospitalComment on above:Performed By: #### [id number] ####[facility] ([facility])[address] [place], [place] [address]ARCPC METABOLIC PANELon 91-20-9797Tllwj gap [Moles/Vol]8 mmol/LNormal7-20UnMercy Health St. Charles HospitalComment on above:Performed By: #### [id number] ####[facility] ([facility])[address] [place] [address] Calcium [Mass/Vol]8.6 mg/dLNormal8.6-10.3UnMercy Health St. [facility] Comment on above:Performed By: #### [id number] ####[facility] ([facility])[address] [place], [place] [address]Lhpcllqq [Moles/Vol]107 mmol/VReixnh55-957 [facility] HospitalComment on above:Performed By: #### [id number] ####[facility] ([facility])[address] [place], [place] [address]SC0 [Moles/Vol] 29 mmol/AHchjfu77-54XblidaxxfmMercy Health St. Charles HospitalComment on above: Performed By: #### [id number] ####[facility] ([facility])[address] [place], [place] [address]Rgdyrrmjrs [Mass/Vol]0.86 mg/dLNormal0.60-1.20UnMercy Health St. Charles HospitalComment on above:Performed By: #### [id number] ####[facility] ([facility])[address] [facility] [address]QGOXTWVFGT FILTRATION RATE ML/MIN/1.73 SQ M.YUUQYVIWR64.1 mL/min/1.73m*2Normal>60.0UnMercy Health St. [facility] Hospital Comment on above:Result Comment: The [facility]???s estimated glomerular filtration rate (eGFR) will no longer include consideration of race in its calculation. The [employer]???s eGFR Task Force developed new recommendations for the estimation of the glomerular filtration ra te in the [place] They recommend immediate implementation of the new equation refit without the race variable in all laboratories because the calculation does not include race. In addition to not including race in the calculation and reporting, it included diversity in its development, and has acceptable performance characteristics and potential consequences that do not disproportionately affect anyone group of individuals.Performed By: #### [id number] ####[facility] ([facility])[address] [place], [place] [address]Hjnlypz [Mass/Vol]93 mg/cFUahhbd98-580KeankgnnfhMercy Health St. Charles HospitalComment on above:Performed By: #### [id number] ####[facility] ([facility])[address] [place], [place] [address]Mmmvxfjkh [Moles/Vol]3.7 mmol/LNormal3.5-5.1UnMercy Health St. Charles HospitalComment on above:Performed By: #### [id number] ####[facility] ([facility])[address] [place] [place], [place] [address]Ekwtxy [Moles/Vol]140 mmol/L Frjzei623-665SoovhduidoMercy Health St. Charles HospitalComment on above:Performed By: #### [id number] ####[facility] ([facility])[address] [place], [place] [address]Bbyw nitrogen [Mass/Vol]20 mg/dLNormal7-25UnMercy Health St. Charles HospitalComment on above:Performed By: #### [id number] ####[facility] ([facility])[address], [place] [address]EOFF NITROGEN/CREATININE (MASS RATIO) IN SER/PLAS23.3Normal [facility] HospitalComment on above:Performed By: #### [id number] ####[facility] ([facility])[address] [place], [place] [address]RZU WITH AUTO DIFFERENTIALon 37-14-4132Osswefomv (Bld) [#/Vol]0.01 10*3/uLNormal0.00-0.20 [facility] HospitalComment on above:Performed By: #### [id number] ####[facility] ([facility])[address] [place], [place] [address]Zdxrvgpgh/100 WBC (Bld)0.2 %Normal0.0-1.0UnMercy Health St. Charles HospitalComment on above: Performed By: #### [id number] ####[facility] ([facility])[address] [place], [place] [address]Yqbbxiohosv (Bld) [#/Vol]0.21 10*3/uLNormal0.00-0.50 [facility] HospitalComment on above:Performed By: #### [id number] ####[facility] ([facility])[address] [place], [place] [address]Iaqxuoigrtk/100 WBC (Bld)3.8 %Normal0.0-6.0UnMercy Health St. Charles HospitalComment on above: Performed By: #### [id number] ####[facility] ([facility])[address] [place], [place] [address]Lrbeylgycgx distribution width (RBC) [Ratio]13.3 %Normal 11.5-15.0UnMercy Health St. Charles HospitalComment on above:Performed By: #### [id number] ####[facility] ([facility])[address] [place] [address] ERYTHROCYTE MEAN CORPUSCULAR HEMOGLOBIN CONCENTRATION (G/DL) BY ITKMEFGQK11.7 g/jBSmyylk32.0-35.0UnMercy Health St. Charles HospitalComment on above:Performed By: #### [id number] ####[facility] ([facility]ER)[address] [place], [place] [address]Xajucmwjzu (Bld) [Volume fraction]34.2 %Low36.0-45.0UnMercy Health St. Charles HospitalComment on above:Performed By: #### [id number] ####[facility] ([facility])[address] [place], [place] [address]Zcnsbailav (Bld) [Mass/Vol]11.2 g/dL Low12.0-15.0UnMercy Health St. Charles HospitalComment on above:Performed By: #### [id number] ####[facility] ([facility])[address] [place] [address] Immature granulocytes (Bld) [#/Vol]0.03 10*3/uLNormal0.00-0.20UnMercy Health St. Charles HospitalComment on above:Performed By: #### [id number] ####[facility] ([facility])[address] [place], [place] [address]Cmhyercd granulocytes/100 WBC (Bld)0.5 %Normal0.0-1.0UnMercy Health St. Charles HospitalComment on above: Performed By: #### [id number] ####[facility] ([facility])[address] [place], [place] [address]Fagsrdjsvqp (Bld) [#/Vol]0.59 10*3/uLLow1.20-4.00UnMercy Health St. Charles HospitalComment on above:Performed By: #### [id number] ####[facility] ([facility])[address] [place], [place] [address]Plcvlgyndmq/100 WBC (Bld) 10.7 %Low20.0-45.0UnMercy Health St. Charles HospitalComment on above:Performed By: #### [id number] ####[facility] ([facility])[address] [place], [place] [address]HTY (RBC) [Entitic mass]30.6 ouRqucyu79.0-33.0UnMercy Health St. Charles HospitalComment on above:Performed By: #### [id number] ####[facility] ([facility])[address] [place] [address]CED (RBC) [Entitic vol]93.4 fLNormal 82.0-98.0UnMercy Health St. Charles HospitalComment on above:Performed By: #### [id number] ####[facility] ([facility])[address] [place] [address] Monocytes (Bld) [#/Vol]0.55 10*3/uLNormal0.10-1.00UnMercy Health St. Charles HospitalComment on above:Performed By: #### [id number] ####[facility] ([facility])[address] [place], [place] [address]Hoeyfduxc/100 WBC (Bld)10.0 %Normal 5.0-12.0[facility] HospitalComment on above:Performed By: #### [id number] ####[facility] ([facility])[address] [place] [address] Neutrophils (Bld) [#/Vol]4.12 10*3/uLNormal1.60-7.60UnMercy Health St. Charles HospitalComment on above:Performed By: #### [id number] ####[facility] ([facility])[address] [place], [place] [address]Zuloeudsars/100 WBC (Bld)74.8 %High 40.0-72.0UnMercy Health St. Charles HospitalComment on above:Performed By: #### [id number] ####[facility] ([facility])[address] [place], [place] [address]OGZV (PER 100 WBCS) BY AUTOMATED COUNT0.0 %Cpakav8OahwftylawMercy Health St. Charles Hospital Comment on above:Performed By: #### [id number] ####[facility] ([facility])[address] [place], [place] [address]EBGZEQRUY (10*3/UL) IN BLOOD AUTOMATED [id number] 10*3/bUOarpmn541-835XwokgvejwnMercy Health St. Charles HospitalComment on above: Performed By: #### [id number] ####[facility] ([facility])[address] [place] [address]RTU (Bld) [#/Vol]3.66 10*6/uLLow3.80-5.00UnMercy Health St. Charles HospitalComment on above:Performed By: #### [id number] ####[facility] ([facility])[address] [place] [address]MKO (Bld) [#/Vol]5.51 10*3/uLNormal 4.00-10.60UnMercy Health St. Charles HospitalComment on above:Performed By: #### [id number] ####[facility] ([facility])[address] [place] [address] MAGNESIUMon 59-02-9855Dcpqorrfy [Mass/Vol]2.0 mg/dLNormal1.9-2.7UnMercy Health St. Charles HospitalComment on above:Performed By: #### [id number] ####[facility] ([facility])[address] [address] 06-27-247726Oqb patient is Moderately Stable - Low risk of patient condition declining or worsening The patient's goals for the shift include comfort The clinical goals for the shift include VSS, safetyNormalUniversity of Pampa Regional Medical CenterOvnrco01BgdkabGimixloirm of Pampa Regional Medical CenterBASIC METABOLIC PANELon 46-71-4589Kjvti gap [Moles/Vol]7 mmol/LNormal7-20UnMercy Health St. Charles HospitalComment on above:Performed By: #### [id number] ####[facility] ([facility])[address] [place], [place] [address]Tpyrdbb [Mass/Vol]8.6 mg/dLNormal 8.6-10.3UnMercy Health St. Charles HospitalComment on above:Performed By: #### [id number] ####[facility] [place], [place] [address]Rbvyhgnt [Moles/Vol]108 mmol/AWyuc30-202DfsbglwehxMercy Health St. Charles HospitalComment on above:Performed By: #### [id number] ####[facility] ([facility])[address] [place] [address]LB8 [Moles/Vol]28 mmol/SPrmbve39-91UnfrmribvxMercy Health St. Charles HospitalComment on above:Performed By: #### [id number] ####[facility] ([facility])[address] [place], [place] [address]Htfikgvlbn [Mass/Vol]0.90 mg/dLNormal 0.60-1.20UnMercy Health St. Charles HospitalComment on above:Performed By: #### [id number] ####[facility] ([facility])[address] [place], [place] [address]BHDDCAASHI FILTRATION RATE ML/MIN/1.73 SQ M.PHOVQWIQB69.4 mL/min/1.73m*2Normal>60.0 [facility] HospitalComment on above:Result Comment: The [facility]???s estimated glomerular filtration rate (eG FR) will no longer include consideration of race [...] potential consequences that do not disproportionately affect anyone group of individuals. Performed By: #### [id number] ####[facility] ([facility])[address] [place], [place] [address]Zzmxbpv [Mass/Vol]95 mg/vAGodaak16-915LceznteemkMercy Health St. Charles HospitalComment on above:Performed By: #### [id number] ####[facility] ([facility])[address] [place], [place] [address]Ewijbtzze [Moles/Vol]3.7 mmol/LNormal 3.5-5.1UnMercy Health St. Charles HospitalComment on above:Performed By: #### [id number] ####[facility] ([facility])[address] [place], [place] [address]Bfunig [Moles/Vol]139 mmol/LTsxpje621-161YcswghvkzrMercy Health St. Charles HospitalComment on above:Performed By: #### [id number] ####[facility] ([facility])[address] [place] [address]Nubu nitrogen [Mass/Vol]27 mg/dLHigh7-25UnMercy Health St. Charles HospitalComment on above:Performed By: #### [id number] ####[facility] ([facility])[address] [place] [address]JJQP NITROGEN/CREATININE (MASS RATIO) IN SER/PLAS30.0NormalUniversAdams County HospitalComment on above: Performed By: #### [id number] ####[facility] ([facility])[address] [place] [address]QZO WITH AUTO DIFFERENTIALon 67-81-9919Diwgljfiz (Bld) [#/Vol]0.01 10*3/uLNormal0.00-0.20UnMercy Health St. Charles HospitalComment on above: Performed By: #### [id number] ####[facility] ([facility])[address] [address]Sjnnvhwvv/100 WBC (Bld)0.2 %Normal0.0-1.0UnMercy Health St. Charles HospitalComment on above:Performed By: #### [id number] ####[facility] ([facility])[address] [place] [address]Qovmpwfyfql (Bld) [#/Vol]0.07 10*3/uL Normal0.00-0.50UnMercy Health St. Charles HospitalComment on above:Performed By: #### [id number] ####[facility] ([facility])[address] [place] [address] Eosinophils/100 WBC (Bld)1.3 %Normal0.0-6.0UnMercy Health St. Charles Hospital Comment on above:Performed By: #### [id number] ####[facility] ([facility])[address] [address]Rghhlgxzedh distribution width (RBC) [Ratio]13.2 % Ywnkpx25.5-15.0UnMercy Health St. Charles HospitalComment on above:Performed By: #### [id number] ####[facility] ([facility] [place] [address] ERYTHROCYTE MEAN CORPUSCULAR HEMOGLOBIN CONCENTRATION (G/DL) BY FGTMLWLAM25.8 g/dLLow32.0-35.0UnMercy Health St. Charles HospitalComment on above:Performed By: #### [id number] ####[facility] ([facility])[address], [place] [address]Adjgpvfdhn (Bld) [Volume fraction]35.2 %Low36.0-45.0UnMercy Health St. Charles HospitalComment on above:Performed By: #### [id number] ####[facility] ([facility])[address] [place], [place] [address]Kzzgizrdaf (Bld) [Mass/Vol]11.2 g/dL Low12.0-15.0UnMercy Health St. Charles HospitalComment on above:Performed By: #### [id number] ####[facility] ([facility])[address] [place] [address] Immature granulocytes (Bld) [#/Vol]0.07 10*3/uLNormal0.00-0.20UnMercy Health St. Charles HospitalComment on above:Performed By: #### [id number] ####[facility] ([facility])[address] [place], [place] [address]Clwkmqzi granulocytes/100 WBC (Bld)1.3 %High0.0-1.0UnMercy Health St. Charles HospitalComment on above: Performed By: #### [id number] ####[facility] ([facility]AKER)[address] [place], [place] [address]Saeagbrdnnb (Bld) [#/Vol]0.60 10*3/uLLow1.20-4.00UnMercy Health St. Charles HospitalComment on above:Performed By: #### [id number] ####[facility] ([facility])[address] [place], [place] [address]Xyowmyvvwkr/100 WBC (Bld) 10.8 %Low20.0-45.0UnMercy Health St. Charles HospitalComment on above:Performed By: #### [id number] ####[facility] ([facility])[address] [place] [address]KJU (RBC) [Entitic mass]30.8 qeAetrsm00.0-33.0UnMercy Health St. Charles HospitalComment on above:Performed By: #### [id number] ####[facility] ([facility])[address] [place], [place] [address]IGZ (RBC) [Entitic vol]96.7 fLNormal 82.0-98.0UnMercy Health St. Charles HospitalComment on above:Performed By: #### [id number] ####[facility] ([facility])[address] [place] [address] Monocytes (Bld) [#/Vol]0.53 10*3/uLNormal0.10-1.00UnMercy Health St. Charles HospitalComment on above:Performed By: #### [id number] ####[facility] ([facility])[address] [place], [place] [address]Zkgihdmiq/100 WBC (Bld)9.6 %Normal 5.0-12.0UnMercy Health St. Charles HospitalComment on above:Performed By: #### [id number] ####[facility] ([facility])[address] [facility] [place] [address] Neutrophils (Bld) [#/Vol]4.26 10*3/uLNormal1.60-7.60UnMercy Health St. Charles HospitalComment on above:Performed By: #### [id number] ####[facility] ([facility])[address] [facility] [place] [address]Opoasmdytho/100 WBC (Bld)76.8 %High 40.0-72.0UnMercy Health St. Charles HospitalComment on above:Performed By: #### [id number] ####[facility] ([facility])[address] [facility], [place] [address]DEHG (PER 100 WBCS) BY AUTOMATED COUNT0.0 %Uvgjen0VtpewrymhxMercy Health St. Charles Hospital Comment on above:Performed By: #### [id number] ####[facility] ([facility])[address] [place] [address]LQCQUSPRA (10*3/UL) IN BLOOD AUTOMATED [id number] 10*3/eMYkrhyp848-119XzjemsaanhMercy Health St. Charles HospitalComment on above: Performed By: #### [id number] ####[facility] ([facility])[address] [place] [address]JJE (Bld) [#/Vol]3.64 10*6/uLLow3.80-5.00UnMercy Health St. Charles HospitalComment on above:Performed By: #### [id number] ####[facility] ([facility])[address] [place] [address]OPH (Bld) [#/Vol]5.54 10*3/uLNormal 4.00-10.60UnMercy Health St. Charles HospitalComment on above:Performed By: #### [id number] ####[facility] ([facility])[address] [place] [address] MAGNESIUMon 49-67-4359Akzxgfhgc [Mass/Vol]2.2 mg/dLNormal1.9-2.7UnMercy Health St. Charles HospitalComment on above:Performed By: #### [id number] ####[facility] ([facility])[address] [id number] 90-81-528731Hdnasd [facility] HospitalBASIC METABOLIC PANELon 37-42-7443Jzhtf gap [Moles/Vol]8 mmol/LNormal7-20UnMercy Health St. Charles HospitalComment on above:Performed By: #### [id number] ####[facility] ([facility])[address] [address]Vyeyaso [Mass/Vol]8.7 mg/dLNormal8.6-10.3UnMercy Health St. Charles HospitalComment on above:Performed By: #### [id number] ####[facility] ([facility])[address] [place], [place] [address]Xehuovqz [Moles/Vol]106 mmol/LNormal 98-107UnMercy Health St. Charles HospitalComment on above:Performed By: #### [id number] ####[facility] ([facility])[address] [place], [place] [address]SU5 [Moles/Vol]29 mmol/GYqcgey67-13CrygwzbawuMercy Health St. Charles HospitalComment on above:Performed By: #### [id number] ####[facility] ([facility])[address] [place], [place] [address]Kfnfrgjkyl [Mass/Vol]0.76 mg/dLNormal0.60-1.20UnMercy Health St. Charles HospitalComment on above:Performed By: #### [id number] ####[facility] ([facility])[address] [place], [place] [address]REWYCUSKPW FILTRATION RATE ML/MIN/1.73 SQ M.JTHTLPYKA14.2 mL/min/1.73m*2Normal>60.0UnMercy Health St. Charles HospitalComment on above:Result Comment: [facility]???s estimated glomerular filtration rate (eGFR) will [...] potential consequences that do not disproportionately affect anyone group of individuals.Performed By: #### [id number] ####[facility] ([facility])[address] [place], [place] [address]Hcdbsjp [Mass/Vol]97 mg/zORnmwhw52-155UimyvohpywMercy Health St. Charles HospitalComment on above:Performed By: #### [id number] ####[facility] ([facility])[address] [place], [place] [address]Zffiliiyj [Moles/Vol]3.4 mmol/LLow3.5-5.1UnMercy Health St. Charles HospitalComment on above:Performed By: #### [id number] ####[facility] ([facility])[address] [place] [address]Shrhwh [Moles/Vol]140 mmol/LNormal 136-145UnMercy Health St. Charles HospitalComment on above:Performed By: #### [id number] ####[facility] ([facility])[address] [place] [address]Zfnc nitrogen [Mass/Vol]26 mg/dLHigh7-25UnMercy Health St. Charles HospitalComment on above:Performed By: #### [id number] ####[facility] ([facility])[address] [place] [address]HHDK NITROGEN/CREATININE (MASS RATIO) IN SER/PLAS34.2Normal [facility] HospitalComment on above:Performed By: #### [id number] ####[facility] ([facility])[address] [place] [address]AAT WITH AUTO DIFFERENTIALon 11-43-4842Blcomjhxq (Bld) [#/Vol]0.01 10*3/uLNormal0.00-0.20 [facility] HospitalComment on above:Performed By: #### [id number] ####[facility] ([facility])[address] [place] [address]Fkjtwgisu/100 WBC (Bld)0.2 %Normal0.0-1.0UnMercy Health St. Charles HospitalComment on above: Performed By: #### [id number] ####[facility] ([facility])[address] [place] [address]Iukyyijvmfr (Bld) [#/Vol]0.02 10*3/uLNormal0.00-0.50 [facility] HospitalComment on above:Performed By: #### [id number] ####[facility] ([facility])[address] [place] [address]Bvwzpcaopri/100 WBC (Bld)0.3 %Normal0.0-6.0UnMercy Health St. Charles HospitalComment on above: Performed By: #### [id number] ####[facility] ([facility]ER)[address] [place], [place] [address]Xrddcyoerca distribution width (RBC) [Ratio]13.4 %Normal 11.5-15.0UnMercy Health St. Charles HospitalComment on above:Performed By: #### [id number] ####[facility] ([facility])[address] [place] [address] ERYTHROCYTE MEAN CORPUSCULAR HEMOGLOBIN CONCENTRATION (G/DL) BY TCRCDFLZV54.1 g/bQKrsvca05.0-35.0UnMercy Health St. Charles HospitalComment on above:Performed By: #### [id number] ####[facility] ([facility])[address] [place], [place] [address]Mqssuczmne (Bld) [Volume fraction]36.0 %Bpkcwt55.0-45.0UnMercy Health St. Charles HospitalComment on above:Performed By: #### [id number] ####[facility] ([facility])[address] [place], [place] [address]Wnpbddmyby (Bld) [Mass/Vol]11.9 g/dL Low12.0-15.0UnMercy Health St. Charles HospitalComment on above:Performed By: #### [id number] ####[facility] [place] [address] Immature granulocytes (Bld) [#/Vol]0.06 10*3/uLNormal0.00-0.20UnMercy Health St. Charles HospitalComment on above:Performed By: #### [id number] ####[facility] [place], [place] [address]Mgupvgwn granulocytes/100 WBC (Bld)1.0 %Normal0.0-1.0UnMercy Health St. Charles HospitalComment on above: Performed By: #### [id number] ####[facility] ([facility])[address] [place], [place] [address]Gdqxskwmdqk (Bld) [#/Vol]0.51 10*3/uLLow1.20-4.00UnMercy Health St. Charles HospitalComment on above:Performed By: #### [id number] ####[facility] ([facility])[address] [facility] [place] [address]Voguzwtvzak/100 WBC (Bld) 8.6 %Low20.0-45.0UnMercy Health St. Charles HospitalComment on above:Performed By: #### [id number] ####[facility] ([facility])[address] [place], [place] [address]SCW (RBC) [Entitic mass]30.8 laJnkono60.0-33.0UnMercy Health St. Charles HospitalComment on above:Performed By: #### [id number] ####[facility] ([facility])[address] [place], [place] [address]BUW (RBC) [Entitic vol]93.3 fLNormal 82.0-98.0UnMercy Health St. Charles HospitalComment on above:Performed By: #### [id number] ####[facility] ([facility])[address] [facility] [place] [address] Monocytes (Bld) [#/Vol]0.47 10*3/uLNormal0.10-1.00UnMercy Health St. Charles HospitalComment on above:Performed By: #### [id number] ####[facility] ([facility])[address] [facility] [place] [address]Ldaighoni/100 WBC (Bld)7.9 %Normal 5.0-12.0UnMercy Health St. Charles HospitalComment on above:Performed By: #### [id number] ####[facility] ([facility])[address] [place] [address] Neutrophils (Bld) [#/Vol]4.86 10*3/uLNormal1.60-7.60UnMercy Health St. Charles HospitalComment on above:Performed By: #### [id number] ####[facility] ([facility])[address] [facility] [place] [address]Sncmqlbmsnw/100 WBC (Bld)82.0 %High 40.0-72.0UnMercy Health St. Charles HospitalComment on above:Performed By: #### [id number] ####[facility] ([facility])[address] [address]GCRL (PER 100 WBCS) BY AUTOMATED COUNT0.0 %Olqlzq6SoksalpegxMercy Health St. Charles Hospital Comment on above:Performed By: #### [id number] ####[facility] ([facility])[address] [address]BNYQIKOMJ (10*3/UL) IN BLOOD AUTOMATED QZIZP251 10*3/kEEoggop243-646NulrmiwhggMercy Health St. Charles HospitalComment on above: Performed By: #### [id number] ####[facility] ([facility])[address] [address]PLN (Bld) [#/Vol]3.86 10*6/uLNormal3.80-5.00UnMercy Health St. Charles HospitalComment on above:Performed By: #### [id number] ####[facility] ([facility])[address] [address]QHT (Bld) [#/Vol]5.93 10*3/uLNormal4.00-10.60UnMercy Health St. Charles HospitalComment on above: Performed By: #### [id number] ####[facility] ([facility])[address] [address]WRGVHBXdl 77-30-84[address]VCYKLEGYequylEyjepiqjkc of [facility] Medical CenterCONSULTNormalUniversity [facility]30on 02-33-654[address]Neugrg [facility] HospitalBASIC METABOLIC PANELon 11-97-5521Gfrop gap [Moles/Vol]11 mmol/LNormal7-20UnMercy Health St. Charles HospitalComment on above:Performed By: #### [id number] ####[facility] ([facility])[address] [place] [address]Vqiybje [Mass/Vol]9.0 mg/dLNormal8.6-10.3UnMercy Health St. Charles HospitalComment on above:Performed By: #### [id number] ####[facility] ([facility]ER)[address] [place] [address]Ugvmldse [Moles/Vol]104 mmol/LNormal 98-107UnMercy Health St. Charles HospitalComment on above:Performed By: #### [id number] ####[facility] ([facility])[address] [place], [place] [address]BH1 [Moles/Vol]29 mmol/LPrxgbl33-50CatsmsiwykMercy Health St. Charles HospitalComment on above:Performed By: #### [id number] ####[facility] ([facility])[address] [place], [place] [address]Qnnjcspcgw [Mass/Vol]0.89 mg/dLNormal0.60-1.20UnMercy Health St. Charles HospitalComment on above:Performed By: #### [id number] ####[facility] ([facility])[address] [place], [place] [address]NWXQIPFGZV FILTRATION RATE ML/MIN/1.73 SQ M.CJOGJBSZO89.3 mL/min/1.73m*2Normal>60.0UnMercy Health St. Charles HospitalComment on above:Result Comment: [facility]???s estimated glomerular filtration rate (eGFR) will [...] potential consequences that do not disproportionately affect anyone group of individuals.Performed By: #### [id number] ####[facility] [place], [place] [address]Qwsqigc [Mass/Vol]133 mg/zYHpzi77-383HntvmsozlqMercy Health St. Charles HospitalComment on above:Performed By: #### [id number] ####[facility] ([facility])[address] [place], [place] [address]Lpcptsqew [Moles/Vol]3.6 mmol/LNormal3.5-5.1UnMercy Health St. Charles HospitalComment on above:Performed By: #### [id number] ####[facility] ([facility])[address] [place] [address]Rwiiwj [Moles/Vol]140 mmol/L Epjjgq570-984KccvajdyloMercy Health St. Charles HospitalComment on above:Performed By: #### [id number] ####[facility] ([facility])[address] [place] [address]Hafw nitrogen [Mass/Vol]29 mg/dLHigh7-25UnMercy Health St. Charles HospitalComment on above:Performed By: #### [id number] ####[facility] ([facility])[address] [place], [place] [address]JBFA NITROGEN/CREATININE (MASS RATIO) IN SER/PLAS32.6Normal [facility] HospitalComment on above:Performed By: #### [id number] ####[facility] ([facility])[address] [place], [place] [address]TPX WITH AUTO DIFFERENTIALon 22-93-7180Itlitofop (Bld) [#/Vol]0.01 10*3/uLNormal0.00-0.20 [facility] HospitalComment on above:Performed By: #### [id number] ####[facility] ([facility])[address] [facility] [place], [place] [address]Sphaslcvm/100 WBC (Bld)0.1 %Normal0.0-1.0UnMercy Health St. Charles HospitalComment on above: Performed By: #### [id number] ####[facility] ([facility])[address] [place], [place] [address]Frwxkxaahne (Bld) [#/Vol]0.00 10*3/uLNormal0.00-0.50 [facility] HospitalComment on above:Performed By: #### [id number] ####[facility] ([facility])[address] [place], [place] [address]Dhmktehejjx/100 WBC (Bld)0.0 %Normal0.0-6.0UnMercy Health St. Charles HospitalComment on above: Performed By: #### [id number] ####[facility] [place], [place] [address]Ajvbhhpqmif distribution width (RBC) [Ratio]13.5 %Normal 11.5-15.0UnMercy Health St. Charles HospitalComment on above:Performed By: #### [id number] ####[facility] ([facility])[address] [place] [address] ERYTHROCYTE MEAN CORPUSCULAR HEMOGLOBIN CONCENTRATION (G/DL) BY JCSLTRAHI26.8 g/yKIqcagi21.0-35.0UnMercy Health St[address] Charles HospitalComment on above:Performed By: #### [id number] ####[facility] ([facility])[address] [place], [place] [address]Xlkkmqbaml (Bld) [Volume fraction]39.0 %Qdszdn56.0-45.0UnMercy Health St[address] Charles HospitalComment on above:Performed By: #### [id number] ####[facility] ([facility])[address] [place], [place] [address]Scxlcajemu (Bld) [Mass/Vol]12.8 g/dL Qyucnn09.0-15.0UnMercy Health St[address] Charles HospitalComment on above:Performed By: #### [id number] ####[facility] ([facility])[address] [place] [address] Immature granulocytes (Bld) [#/Vol]0.08 10*3/uLNormal0.00-0.20UnMercy Health St. Charles HospitalComment on above:Performed By: #### [id number] ####[facility] [place], [place] [address]Nagweqwo granulocytes/100 WBC (Bld)0.9 %Normal0.0-1.0UnMercy Health St. Charles HospitalComment on above: Performed By: #### [id number] ####[facility] ([facility])[address] [place], [place] [address]Xcfqoaerzkp (Bld) [#/Vol]0.40 10*3/uLLow1.20-4.00UnMercy Health St. Charles HospitalComment on above:Performed By: #### [id number] ####[facility] [place], [place] [address]Ewxenwelxll/100 WBC (Bld) 4.3 %Low20.0-45.0UnMercy Health St. Charles HospitalComment on above:Performed By: #### [id number] ####[facility] ([facility])[address] [facility], [place] [address]OLR (RBC) [Entitic mass]30.6 ujUjvhwq66.0-33.0UnMercy Health [address] Charles HospitalComment on above:Performed By: #### [id number] ####[facility] ([facility])[address] [facility], [place] [address]OYJ (RBC) [Entitic vol]93.3 fLNormal 82.0-98.0UnMercy Health St[address] Charles HospitalComment on above:Performed By: #### [id number] ####[facility] ([facility])[address] [place] [address] Monocytes (Bld) [#/Vol]0.45 10*3/uLNormal0.10-1.00UnMercy Health St. Charles HospitalComment on above:Performed By: #### [id number] ####[facility] ([facility])[address] [facility] [place] [address]Fcoccbadb/100 WBC (Bld)4.9 %Low 5.0-12.0UnMercy Health St. Charles HospitalComment on above:Performed By: #### [id number] ####[facility] ([facility] [place] [address] Neutrophils (Bld) [#/Vol]8.30 10*3/uLHigh1.60-7.60UnMercy Health St. Charles HospitalComment on above:Performed By: #### [id number] ####[facility] ([facility])[address] [facility] [place], [place] [address]Xcalsaedtnk/100 WBC (Bld)89.8 %High 40.0-72.0UnMercy Health St. Charles HospitalComment on above:Performed By: #### [id number] ####[facility] ([facility])[address] [place] [address]XMPE (PER 100 WBCS) BY AUTOMATED COUNT0.0 %Yzqmpi1ZuchjjbsjqMercy Health St. Charles Hospital Comment on above:Performed By: #### [id number] ####[facility] ([facility])[address] [place] [address]KEDKNNNLE (10*3/UL) IN BLOOD AUTOMATED [id number] 10*3/oEWhwgvg710-967UlfeahjdpfMercy Health St. Charles HospitalComment on above: Performed By: #### [id number] ####[facility] ([facility])[address] [place] [address]CLG (Bld) [#/Vol]4.18 10*6/uLNormal3.80-5.00UnMercy Health St. Charles HospitalComment on above:Performed By: #### [id number] ####[facility] ([facility])[address] [place] [address]EMP (Bld) [#/Vol]9.24 10*3/uLNormal4.00-10.60UnMercy Health St. Charles HospitalComment on above: Performed By: #### [id number] ####[facility] ([facility])[address] [place] [address]WC HEAD WO IV CONTRASTon 38-73-1039IY HEAD WO IV CONTRAST NormalUnMercy Health St. Charles HospitalHIGH SENSITIVITY TROPONIN Ion 85-78-7654BT TROPONIN I (NG/L)2801 ng/LCritically high<15UnMercy Health St. Charles HospitalComment on above:Performed By: #### [id number] ####[facility] ([facility])[address] [place] [address]92qn 22-57-387707SiqtceKnjjeyjimz of [facility]edo Medical CenterANTI-XA (HEPARIN LEVEL)on 25-38-2775TLZTXZT UNFRACTIONATED (U/ML) IN PPP BY CHROMOGENIC METHOD<0.10Invalid Interpretation Code0.3-0.7 [facility] HospitalComment on above:Order Comment: Check anti-Xa level every 6 hours while on heparin infusion, or per protocol.Result Comment: Rivaroxaban and Apixaban will interfere with the anti Xa assay used to monitor UFH and LMWH.Performed By: #### [id number] ####[facility] ([facility])[address] [place], [place] [address]VSG WITH AUTO DIFFERENTIALon 88-16-2851Nbmnrjjbz (Bld) [#/Vol]0.01 10*3/uLNormal0.00-0.20UnMercy Health St. [facility] Comment on above:Performed By: #### [id number] ####[facility] ([facility])[address] [place], [place] [address]Hrambelgu/100 WBC (Bld)0.1 %Normal0.0-1.0UnMercy Health St. Charles HospitalComment on above:Performed By: #### [id number] ####[facility] ([facility])[address] [place], [place] [address]Grraqgmwjdv (Bld) [#/Vol] 0.00 10*3/uLNormal0.00-0.50UnMercy Health St. Charles HospitalComment on above: Performed By: #### [id number] ####[facility] ([facility])[address] [place], [place] [address]Jhjsqbonuik/100 WBC (Bld)0.0 %Normal0.0-6.0UnMercy Health St. Charles HospitalComment on above:Performed By: #### [id number] ####[facility] ([facility])[address] [place], [place] [address]Jkvturynmze distribution width (RBC) [Ratio]13.9 %Fplobj89.5-15.0UnMercy Health St. Charles Hospital Comment on above:Performed By: #### [id number] ####[facility] ([facility])[address] [place], [place] [address]XCCDWHPWFYT MEAN CORPUSCULAR HEMOGLOBIN CONCENTRATION (G/DL) BY FSMQQNJZR26.7 g/yUYdpswf57.0-35.0UnMercy Health St. Charles HospitalComment on above:Performed By: #### [id number] ####[facility] ([facility])[address] [place] [address]Fgkipxrzqg (Bld) [Volume fraction]36.7 %Ptqonq40.0-45.0UnMercy Health St. Charles HospitalComment on above:Performed By: #### [id number] ####[facility] ([facility])[address] [place], [place] [address]Tbdojlvelf (Bld) [Mass/Vol]12.0 g/dJTcialb32.0-15.0UnMercy Health St. Charles HospitalComment on above:Performed By: #### [id number] ####[facility] ([facility])[address] [place], [place] [address]Tglunirv granulocytes (Bld) [#/Vol] 0.04 10*3/uLNormal0.00-0.20UnMercy Health St. Charles HospitalComment on above: Performed By: #### [id number] ####[facility] ([facility])[address] [place], [place] [address]Opxdabxt granulocytes/100 WBC (Bld)0.4 %Normal0.0-1.0 [facility] HospitalComment on above:Performed By: #### [id number] ####[facility] ([facility])[address] [facility] [place] [address]Hpqlccofzml (Bld) [#/Vol]0.38 10*3/uLLow1.20-4.00UnMercy Health St. Charles HospitalComment on above:Performed By: #### [id number] ####[facility] ([facility])[address] [facility] [place], [place] [address]Jrqcpkygdvi/100 WBC (Bld)3.6 %Low20.0-45.0UnMercy Health St. Charles HospitalComment on above:Performed By: #### [id number] ####[facility] ([facility])[address] [place] [address]TTL (RBC) [Entitic mass] 30.8 csPgbwnc85.0-33.0UnMercy Health St[address] Charles HospitalComment on above: Performed By: #### [id number] ####[facility] ([facility])[address] [place] [address]XZP (RBC) [Entitic vol]94.3 bNShwvgw79.0-98.0UnMercy Health St[address] Charles HospitalComment on above:Performed By: #### [id number] ####[facility] ([facility])[address] [place] [address]Jmwhwoiit (Bld) [#/Vol] 0.43 10*3/uLNormal0.10-1.00UnMercy Health St. Charles HospitalComment on above: Performed By: #### [id number] ####[facility] (AKER)[address] [place] [address]Negkftwpi/100 WBC (Bld)4.0 %Low5.0-12.0UnMercy Health St. Charles HospitalComment on above:Performed By: #### [id number] ####[facility] ([facility])[address] [place], [place] [address]Qtvwvjyktqf (Bld) [#/Vol]9.76 10*3/uL High1.60-7.60UnMercy Health St. Charles HospitalComment on above:Performed By: #### [id number] ####[facility] (BEAKER)[address] [place] [address] Neutrophils/100 WBC (Bld)91.9 %High40.0-72.0UnMercy Health St. [facility] Comment on above:Performed By: #### [id number] ####[facility] ([facility] [place] [address]RBCA (PER 100 WBCS) BY AUTOMATED COUNT0.0 %Normal0 [facility] HospitalComment on above:Performed By: #### [id number] ####[facility] ([facility]ER)[address] [place] [address]LQQJIQSJE (10*3/UL) IN BLOOD AUTOMATED [id number] 10*3/ePBnwkht225-818ShepdjfgbzMercy Health St. Charles HospitalComment on above:Performed By: #### [id number] ####[facility] ([facility])[address] [address]MDF (Bld) [#/Vol]3.89 10*6/uLNormal 3.80-5.00UnMercy Health St. Charles HospitalComment on above:Performed By: #### [id number] ####[facility] ([facility])[address] [address]SHL (Bld) [#/Vol]10.62 10*3/uLHigh4.00-10.60UnMercy Health St. Charles Hospital Comment on above:Performed By: #### [id number] ####[facility] ([facility])[address] [place] [address]NHVSZIDQRBHMF METABOLIC PANELon 66-28-8034Bcyycfv [Mass/Vol]3.6 g/dLNormal3.5-5.7UnMercy Health St. Charles HospitalComment on above:Performed By: #### [id number] ####[facility] ([facility])[address] [place] [address]RQE [Catalytic activity/Vol]37 U/KHxauko85-538AeogomzzdqMercy Health St. Charles HospitalComment on above:Performed By: #### [id number] ####[facility] ([facility])[address] [place] [address]ZHV [Catalytic activity/Vol]13 U/L Normal7-52UnMercy Health St. Charles HospitalComment on above:Performed By: #### [id number] ####[facility] ([facility])[address] [place], [place] [address]Jqcji gap [Moles/Vol]11 mmol/LNormal7-20UnMercy Health St. Charles HospitalComment on above:Performed By: #### [id number] ####[facility] ([facility])[address] [place] [address]IZS [Catalytic activity/Vol]25 U/PRieurl24-30MajelnndwcMercy Health St. Charles HospitalComment on above:Performed By: #### [id number] ####[facility] ([facility])[address] [place] [address]Ttqvwfcfv [Mass/Vol]0.7 mg/dL Normal0.3-1.0UnMercy Health St. Charles HospitalComment on above:Performed By: #### [id number] ####[facility] ([facility])[address] [place] [address] Calcium [Mass/Vol]8.9 mg/dLNormal8.6-10.3UnMercy Health St. Charles Hospital Comment on above:Performed By: #### [id number] ####[facility] ([facility])[address] [place] [address]Cbixmpjp [Moles/Vol]106 mmol/OIeioas28-888 [facility] HospitalComment on above:Performed By: #### [id number] ####[facility] ([facility])[address] [place] [address]TQ6 [Moles/Vol] 30 mmol/QEmesbj31-19DkptfopgdnMercy Health St. Charles HospitalComment on above: Performed By: #### [id number] ####[facility] ([facility])[address] [place] [address]Wkizgyimuf [Mass/Vol]0.88 mg/dLNormal0.60-1.20UnMercy Health St. Charles HospitalComment on above:Performed By: #### [id number] ####[facility] ([facility])[address] [place] [address]IQWXNLBMBR FILTRATION RATE ML/MIN/1.73 SQ M.IPFDDNKOM25.2 mL/min/1.73m*2Normal>60.0UnMercy Health St[facility] Hospital Comment on above:Result Comment: The [facility]???s estimated glomerular filtration rate (eGFR) will no longer include consideration of race in its calculation. The National Kidney Foundation???s eGFR Task Force developed new recommendations for the estimation of the glomerular filtration ra te in the [place] They recommend immediate implementation of the new equation refit without the race variable in all laboratories because the calculation does not include race. In addition to not including race in the calculation and reporting, it included diversity in its development, and has acceptable performance characteristics and potential consequences that do not disproportionately affect anyone group of individuals.Performed By: #### [id number] ####[facility] ([facility])[address] [place], [place] [address]Nmdyqap [Mass/Vol]127 mg/jXMpwd08-508KzdtblmnbeMercy Health St. Charles HospitalComment on above:Performed By: #### [id number] ####[facility] ([facility])[address] [place], [place] [address]Vgfsmgimo [Moles/Vol]3.8 mmol/LNormal3.5-5.1UnMercy Health St. Charles HospitalComment on above:Performed By: #### [id number] ####[facility] ([facility])[address] [place], [place] [address]Bgkctrq [Mass/Vol]5.7 g/dLLow 6.0-8.3UnMercy Health St. Charles HospitalComment on above:Performed By: #### [id number] ####[facility] ([facility])[address] [place], [place] [address]Bffwyp [Moles/Vol]143 mmol/ZGgfmst306-982WlqzehdgbuMercy Health St. Charles HospitalComment on above:Performed By: #### [id number] ####[facility] ([facility])[address] [place], [place] [address]Sxcd nitrogen [Mass/Vol]34 mg/dLHigh7-25UnMercy Health St. Charles HospitalComment on above:Performed By: #### [id number] ####[facility] ([facility])[address] [place], [place] [address]LTNF NITROGEN/CREATININE (MASS RATIO) IN SER/PLAS38.6NormalUniversAdams County HospitalComment on above: Performed By: #### [id number] ####[facility] ([facility])[address] [place], [place] [address]JWEU SENSITIVITY TROPONIN Ion 39-08-2486SL TROPONIN I (NG/L)3616 ng/L Critically high<15UnMercy Health St. Charles HospitalComment on above:Performed By: #### [id number] ####[facility] ([facility])[address] [place] [address]ZLKXOBODTma 04-98-4376Gkeadepfg [Mass/Vol]2.4 mg/dLNormal1.9-2.7UnMercy Health St. Charles HospitalComment on above:Performed By: #### [id number] ####[facility] ([facility])[address] [place], [place] [address]IQFPMOIVdz 03-15-2025 NURSNOTENormalUniversity Trinity Health System East CampusNURSNOTENormalUniversity [facility] East CampusNURSNOTENormalUniversAdams County HospitalPHOSPHORUS on 15-40-2152Smvtdredf [Mass/Vol]3.1 mg/dLNormal2.5-5.0UnMercy Health St. Charles HospitalComment on above:Performed By: #### [id number] ####[facility] ([facility])[address] [place], [place] [address]G6, FREEon 23-61-2664OXIQJYSVP (T4) FREE (NG/DL) IN SER/PLAS0.86 ng/dLNormal0.71-1.85UnMercy Health St. Charles HospitalComment on above:Performed By: #### [id number] ####[facility] ([facility])[address] [place], [place] [address]MGT4 REFLEX TO FT4on 03-15-2025 THYROTROPIN (MIU/L) IN SER/PLAS BY DETECTION LIMIT <= 0.05 MIU/L0.34 mIU/LNormal 0.34-5.60UnMercy Health St. Charles HospitalComment on above:Performed By: #### [id number] ####[facility] ([facility])[address] [place] [address]vt 59-88-[address]TdqflbJjtlnzsoru of [facility] Medical CenterANESon 25-36-6172JOERTfarme [facility] HospitalANTI-XA (HEPARIN LEVEL)on 45-66-4527PEHUHJA UNFRACTIONATED (U/ML) IN PPP BY CHROMOGENIC METHOD0.57 IU/mLNormal0.3-0.7 [facility] HospitalComment on above:Order Comment: Check anti-Xa level every 6 hours while on heparin infusion, or per protocol.Result Comment: Rivaroxaban and Apixaban will interfere with the anti Xa assay used to monitor UFH and LMWH.Performed By: #### [id number] ####[facility] ([facility])[address] [facility], [place] [address]ENGNPEO UNFRACTIONATED (U/ML) IN PPP BY CHROMOGENIC METHOD0.65 IU/mLNormal0.3-0.7UnMercy Health St. Charles HospitalComment on above:Order Comment: Check anti-Xa level every 6 hours while on heparin infusion, or per protocol.Result Comment: Rivaroxaban and Apixaban will interfere with the anti Xa assay used to monitor UFH and LMWH.Performed By: #### [id number] ####[facility] ([facility])[address] [place], [place] [address]OOF WITH AUTO DIFFERENTIALon 84-83-3839Huzrpkwzr (Bld) [#/Vol]0.01 10*3/uLNormal 0.00-0.20UnMercy Health St. Charles HospitalComment on above:Performed By: #### [id number] ####[facility] ([facility])[address] [place] [address] Basophils/100 WBC (Bld)0.1 %Normal0.0-1.0UnMercy Health St. Charles Hospital Comment on above:Performed By: #### [id number] ####[facility] ([facility])[address] [facility], [place] [address]Racacaqzduw (Bld) [#/Vol]0.00 10*3/uLNormal 0.00-0.50UnMercy Health St. Charles HospitalComment on above:Performed By: #### [id number] ####[facility] ([facility])[address] [place] [address] Eosinophils/100 WBC (Bld)0.0 %Normal0.0-6.0UnMercy Health St. Charles Hospital Comment on above:Performed By: #### [id number] ####[facility] ([facility]AKER)[address] [place], [place] [address]Iimvejhrfoy distribution width (RBC) [Ratio]14.0 % Gwwiyg02.5-15.0[facility] HospitalComment on above:Performed By: #### [id number] ####[facility] ([facility] [place] [address] ERYTHROCYTE MEAN CORPUSCULAR HEMOGLOBIN CONCENTRATION (G/DL) BY YEAQNGEEV88.3 g/vNGiyufm25.0-35.0UnMercy Health St. Charles HospitalComment on above:Performed By: #### [id number] ####[facility] ([facility])[address] [place], [place] [address]Ekaqlzzkrx (Bld) [Volume fraction]36.2 %Dkzfub17.0-45.0UnMercy Health St. Charles HospitalComment on above:Performed By: #### [id number] ####[facility] ([facility])[address] [place], [place] [address]Nwevxnnvzp (Bld) [Mass/Vol]11.7 g/dL Low12.0-15.0[facility] HospitalComment on above:Performed By: #### [id number] ####[facility] ([facility]ER)[address] [place] [address] Immature granulocytes (Bld) [#/Vol]0.07 10*3/uLNormal0.00-0.20UnMercy Health St. Charles HospitalComment on above:Performed By: #### [id number] ####[facility] ([facility]ER)[address] [place], [place] [address]Czlipqvu granulocytes/100 WBC (Bld)0.5 %Normal0.0-1.0UnMercy Health St. Charles HospitalComment on above: Performed By: #### [id number] ####[facility] ([facility]ER)[address] [place], [place] [address]Emsklfvyswr (Bld) [#/Vol]0.43 10*3/uLLow1.20-4.00UnMercy Health St. Charles HospitalComment on above:Performed By: #### [id number] ####[facility] ([facility])[address] [place], [place] [address]Svbynfofmkp/100 WBC (Bld) 3.3 %Low20.0-45.0UnMercy Health St. Charles HospitalComment on above:Performed By: #### [id number] ####[facility] ([facility])[address] [place], [place] [address]NBS (RBC) [Entitic mass]30.7 hdDdabpc03.0-33.0UnMercy Health St. Charles HospitalComment on above:Performed By: #### [id number] ####[facility] ([facility])[address] [place], [place] [address]URC (RBC) [Entitic vol]95.0 fLNormal 82.0-98.0UnMercy Health St. Charles HospitalComment on above:Performed By: #### [id number] ####[facility] ([facility])[address] [place] [address] Monocytes (Bld) [#/Vol]0.51 10*3/uLNormal0.10-1.00UnMercy Health St. Charles HospitalComment on above:Performed By: #### [id number] ####[facility] ([facility])[address] [facility] [place] [address]Adoumodqp/100 WBC (Bld)3.9 %Low 5.0-12.0UnMercy Health St. Charles HospitalComment on above:Performed By: #### [id number] ####[facility] ([facility])[address] [place] [address] Neutrophils (Bld) [#/Vol]12.06 10*3/uLHigh1.60-7.60UnMercy Health St. Charles HospitalComment on above:Performed By: #### [id number] ####[facility] ([facility])[address] [facility] [address]Fvvypeotgmf/100 WBC (Bld)92.2 %High 40.0-72.0UnMercy Health St. Charles HospitalComment on above:Performed By: #### [id number] ####[facility] ([facility])[address] [place] [address]OTGV (PER 100 WBCS) BY AUTOMATED COUNT0.0 %Jzqjaq7HysmhigjczMercy Health St. Charles Hospital Comment on above:Performed By: #### [id number] ####[facility] ([facility])[address] [place] [address]TBSAANVDC (10*3/UL) IN BLOOD AUTOMATED RHEHS858 10*3/rLAjmaeh984-413HvchbduyugMercy Health St. Charles HospitalComment on above: Performed By: #### [id number] ####[facility] ([facility])[address] [place] [address]YID (Bld) [#/Vol]3.81 10*6/uLNormal3.80-5.00UnMercy Health St. Charles HospitalComment on above:Performed By: #### [id number] ####[facility] ([facility])[address] [place], [place] [address]CDC (Bld) [#/Vol]13.08 10*3/uLHigh4.00-10.60UnMercy Health St. Charles HospitalComment on above: Performed By: #### [id number] ####[facility] ([facility])[address] [place], [place] [address]RHFGYCVODPSFB METABOLIC PANELon 12-03-3252Jrdtmoj [Mass/Vol] 3.6 g/dLNormal3.5-5.7UnMercy Health St. Charles HospitalComment on above: Performed By: #### [id number] ####[facility] ([facility])[address] [place], [place] [address]ICD [Catalytic activity/Vol]39 U/VEfzvoe80-138BoxhquaugvMercy Health St. Charles HospitalComment on above:Performed By: #### [id number] ####[facility] ([facility])[address] [place], [place] [address]BBB [Catalytic activity/Vol]13 U/L Normal7-52UnMercy Health St. Charles HospitalComment on above:Performed By: #### [id number] ####[facility] ([facility]ER)[address] [place], [place] [address]Izmwu gap [Moles/Vol]12 mmol/LNormal7-20UnMercy Health St. Charles HospitalComment on above:Performed By: #### [id number] ####[facility] ([facility])[address] [place], [place] [address]FYW [Catalytic activity/Vol]30 U/DNphfdb80-01XrjvgyfsxeMercy Health St. Charles HospitalComment on above:Performed By: #### [id number] ####[facility] ([facility])[address] [place], [place] [address]Fwctkxlot [Mass/Vol]0.4 mg/dL Normal0.3-1.0UnMercy Health St. Charles HospitalComment on above:Performed By: #### [id number] ####[facility] ([facility])[address] [place] [address] Calcium [Mass/Vol]8.8 mg/dLNormal8.6-10.3UnMer[facility] Health St[facility] Comment on above:Performed By: #### [id number] ####[facility] ([facility])[address] [place], [place] [address]Ywcsgnuc [Moles/Vol]109 mmol/BAzcw34-846PzwfdqpsbjMercy Health St. Charles HospitalComment on above:Performed By: #### [id number] ####[facility] ([facility])[address] [place], [place] [address]XA2 [Moles/Vol]26 mmol/L Gkosdx44-59YoesgtxncwMercy Health St. Charles HospitalComment on above:Performed By: #### [id number] ####[facility] ([facility]ER)[address] [place] [address] Creatinine [Mass/Vol]1.03 mg/dLNormal0.60-1.20UnMercy Health St. Charles HospitalComment on above:Performed By: #### [id number] ####[facility] ([facility])[address] [place], [place] [address]EGVTNGFCAF FILTRATION RATE ML/MIN/1.73 SQ M.FKGCORBWC62.7 mL/min/1.73m*2Low>60.0UnMer[facility] Comment on above:Result Comment: [facility]???s estimated glomerular filtration rate (eGFR) will no longer include consideration of race in its calculation. The National Kidney Foundation???s eGFR Task Force developed new recommendations for the estimation of the glomerular filtration ra te in the [place] They recommend immediate implementation of the new equation refit without the race variable in all laboratories because the calculation does not include race. In addition to not including race in the calculation and reporting, it included diversity in its development, and has acceptable performance characteristics and potential consequences that do not disproportionately affect anyone group of individuals.Performed By: #### [id number] ####[facility] ([facility])[address] [facility] [place] [address]Nqyhfjc [Mass/Vol]132 mg/uPVjae96-223HvvxuozvuiMercy Health St. Charles HospitalComment on above:Performed By: #### [id number] ####[facility] ([facility])[address] [facility], [place] [address]Bjktlsekx [Moles/Vol]3.7 mmol/LNormal3.5-5.1UnMercy Health St. Charles HospitalComment on above:Performed By: #### [id number] ####[facility] ([facility])[address] [facility] [address]Wrnizai [Mass/Vol]5.6 g/dLLow 6.0-8.3UnMercy Health St. Charles HospitalComment on above:Performed By: #### [id number] ####[facility] ([facility])[address] [facility] [place], [place] [address]Qlstco [Moles/Vol]143 mmol/GUfpich808-069VbziwhwxqiMercy Health St. Charles HospitalComment on above:Performed By: #### [id number] ####[facility] ([facility])[address] [facility], [place] [address]Bjhi nitrogen [Mass/Vol]35 mg/dLHigh7-25UnMercy Health St. Charles HospitalComment on above:Performed By: #### [id number] ####[facility] ([facility])[address] [place] [address]YCCK NITROGEN/CREATININE (MASS RATIO) IN SER/PLAS34.0NormalUniCincinnati Children's Hospital Medical CenterComment on above: Performed By: #### [id number] ####[facility] ([facility])[address] [address]CEAAGHQql 02-90-8920UPKUFKFOgsvbjQdgxpgopbm of [facility] Medical CenterHP on 78-62-4168UDF&P reviewed. The patient was examined and there are no changes to the H&P.NormalUnMercy Health St. Charles HospitalLACTIC ACID WITH 4 HOUR REFLEXon 19-08-7970PHPZNJN (MMOL/L) IN SER/PLAS1.9 mmol/LNormal0.5-2.2UnMercy Health St. Charles HospitalComment on above:Performed By: #### [id number] ####[facility] ([facility])[address] [place] [address]WJUORVF (MMOL/L) IN SER/PLAS1.0 mmol/LNormal0.5-2.2UnMercy Health St. Charles HospitalComment on above:Performed By: #### [id number] ####[facility] ([facility])[address] [place] [address]KSDITKC (MMOL/L) IN SER/PLAS1.1 mmol/LNormal0.5-2.2UnMercy Health St. Charles HospitalComment on above:Performed By: #### [id number] ####[facility] ([facility])[address] [place] [address]VIENB PANELon 03-14-2025 CHOL/HDL4.1 mg/dLNormalUniCincinnati Children's Hospital Medical CenterComment on above: Performed By: #### [id number] ####[facility] ([facility])[address] [place] [address]Deyxfompase [Mass/Vol]173 mg/fNSyuofc506-430OalkihqfofMercy Health St. Charles HospitalComment on above:Performed By: #### [id number] ####[facility] ([facility])[address] [place] [address]Yexqhlflo [Mass/Vol]153 mg/dLHigh<150 [facility] HospitalComment on above:Result Comment: TRIGLYCERIDE REFERENCE RANGE:20 YEARS AND OLDER CARDIOVASCULAR RISKLESS THAN 150 mg/dL LOW [id number] TO 199 mg/dL BORDERLINE MVQJ510 mg/dL AND GREATER HIGH RISKPerformed By: #### [id number] ####[facility] ([facility])[address] [facility] [place] [address] Magnesium [Mass/Vol]100 mg/dLNormal0-160UnMercy Health St. [facility] Comment on above:Performed By: #### [id number] ####[facility] ([facility])[address] [facility] [address]Pixxeaqka [Mass/Vol]42 mg/hABgybbw73-62SjrmsaoapdMercy Health St. Charles HospitalComment on above:Performed By: #### [id number] ####[facility] ([facility])[employer] [address] [place] [place], [place] [address]ASC HDL CHOL. (LDL+VLDL) 131NormalUniversAdams County HospitalComment on above:Performed By: #### [id number] ####[facility] ([facility])[address] [place], [place] [address]VZKZN VLDL-C31 mg/dLNormal0-40UnMercy Health St. Charles HospitalComment on above: Performed By: #### [id number] ####[facility] ([facility])[address] [place], [place] [address]ZWBVTLEIIjh 45-91-9834Cggicvvgc [Mass/Vol]2.5 mg/dLNormal1.9-2.7 [facility] HospitalComment on above:Performed By: #### [id number] ####[facility] ([facility])[address] [place], [place] [address]HPTGNLGOli 09-88-1829OAFFQSFQGmfbprDetohwdykt of [facility] Medical CenterNURSNOTENormal [facility] HospitalPHOSPHORUSon 23-16-8533Ssuiyfxqo [Mass/Vol] 3.2 mg/dLNormal2.5-5.0UnMercy Health St. Charles HospitalComment on above: Performed By: #### [id number] ####[facility] ([facility])[address] [facility] [address]jt 68-55-766025OewcakDzopbcvmwe of [facility] ANTI-XA (HEPARIN LEVEL)on 12-29-8437GPGFCAA UNFRACTIONATED (U/ML) IN PPP BY CHROMOGENIC METHOD0.77 IU/mLHigh0.3-0.7UnMercy Health St. [facility] Comment on above:Order Comment: Check anti-Xa level every 6 hours while on heparin infusion, or per protocol.Result Comment: Rivaroxaban and Apixaban will interfere with the anti Xa assay used to monitor UFH and LMWH.Performed By: #### [id number] ####[facility] ([facility])[address] [place], [place] [address]YTFWhm [id number] PARTIAL THROMBOPLASTIN TIME IN PPP BY COAGULATION MVIFA278.5 DhuxijkTjej71.0-35.0UnMercy Health St[address] Charles HospitalComment on above:Order Comment: Baseline aPTT before initiating heparin infusion.Result Comment: Clinical significance of the APTT is questionable in the presence of heparin. Performed By: #### [id number] ####[facility] ([facility])[address] [place], [place] [address]APW WITH AUTO DIFFERENTIALon [id number] (Bld) [#/Vol]0.03 10*3/uLNormal0.00-0.20UnMercy Health St. Charles HospitalComment on above:Performed By: #### [id number] ####[facility] ([facility])[address] [place], [place] [address]Xbfpsrisx/100 WBC (Bld)0.1 %Normal0.0-1.0UnMercy Health St. Charles HospitalComment on above:Performed By: #### [id number] ####[facility] ([facility])[address] [place], [place] [address]Lztbdgkkueg (Bld) [#/Vol]0.00 10*3/uL Normal0.00-0.50UnMercy Health St. Charles HospitalComment on above:Performed By: #### [id number] ####[facility] ([facility])[address] [place] [address] Eosinophils/100 WBC (Bld)0.0 %Normal0.0-6.0UnMer[facility] Comment on above:Performed By: #### [id number] ####[facility] ([facility])[address] [place], [place] [address]Qfdpmlrzfvd distribution width (RBC) [Ratio]13.9 % Tiwiug95.5-15.0UnMer[address] [facility] [address] Charles HospitalComment on above:Performed By: #### [id number] ####[facility] ([facility])[address] [place] [address] ERYTHROCYTE MEAN CORPUSCULAR HEMOGLOBIN CONCENTRATION (G/DL) BY VTPNQVNUB25.7 g/yOOdmlds64.0-35.0UnMercy [facility] [address] Charles HospitalComment on above:Performed By: #### [id number] ####[facility] HOSPITAL LAB ([facility])[address] [place], [place] [address]Lxfghwktgu (Bld) [Volume fraction]38.8 %Ysjzdx74.0-45.0UnMercy Health St. Charles HospitalComment on above:Performed By: #### [id number] ####[facility] ([facility])[address] [place], [place] [address]Rlevqvyifn (Bld) [Mass/Vol]12.7 g/dL Emsqsb18.0-15.0UnMercy Health St. Charles HospitalComment on above:Performed By: #### [id number] ####[facility] ([facility])[address] [place] [address] Immature granulocytes (Bld) [#/Vol]0.16 10*3/uLNormal0.00-0.20UnMercy Health St. Charles HospitalComment on above:Performed By: #### [id number] ####[facility] ([facility])[address] [place], [place] [address]Iodkomyg granulocytes/100 WBC (Bld)0.8 %Normal0.0-1.0UnMercy Health St. Charles HospitalComment on above: Performed By: #### [id number] ####[facility] ([facility])[address] [place], [place] [address]Nnkdbdrytwb (Bld) [#/Vol]0.77 10*3/uLLow1.20-4.00UnMercy Health St. Charles HospitalComment on above:Performed By: #### [id number] ####[facility] ([facility])[address] [place], [place] [address]Cdtjuxtkogg/100 WBC (Bld) 3.7 %Low20.0-45.0UnMercy Health St. Charles HospitalComment on above:Performed By: #### [id number] ####[facility] ([facility])[address] [place], [place] [address]UQR (RBC) [Entitic mass]30.9 niLcclqz01.0-33.0UnMercy Health St. Charles HospitalComment on above:Performed By: #### [id number] ####[facility] ([facility])[address] [place], [place] [address]KTR (RBC) [Entitic vol]94.4 fLNormal 82.0-98.0UnMercy Health St. Charles HospitalComment on above:Performed By: #### [id number] ####[facility] ([facility])[address] [facility] [address] Monocytes (Bld) [#/Vol]0.57 10*3/uLNormal0.10-1.00UnMercy Health St. Charles HospitalComment on above:Performed By: #### [id number] ####[facility] ([facility])[address] [facility] [place] [address]Tqpmdnphj/100 WBC (Bld)2.8 %Low 5.0-12.0UnMercy Health St. Charles HospitalComment on above:Performed By: #### [id number] ####[facility] [facility] [address] Neutrophils (Bld) [#/Vol]19.06 10*3/uLHigh1.60-7.60UnMercy Health St. Charles HospitalComment on above:Performed By: #### [id number] ####[facility] ([facility])[address] [address]Lpdgiqqidgz/100 WBC (Bld)92.6 %High 40.0-72.0UnMercy Health St. Charles HospitalComment on above:Performed By: #### [id number] ####[facility] ([facility])[address] [address]GVPO (PER 100 WBCS) BY AUTOMATED COUNT0.0 %Wxzpnk2SysvmpxuzlMercy Health St. Charles Hospital Comment on above:Performed By: #### [id number] ####[facility] ([facility])[address] [place] [address]FUETIAWSJ (10*3/UL) IN BLOOD AUTOMATED DAMLS976 10*3/fORgfgra794-029CundsekgzrMercy Health St. Charles HospitalComment on above: Performed By: #### [id number] ####[facility] ([facility])[address] [place] [address]KGF (Bld) [#/Vol]4.11 10*6/uLNormal3.80-5.00UnMercy Health St. Charles HospitalComment on above:Performed By: #### [id number] ####[facility] ([facility])[address] [address]IUR (Bld) [#/Vol]20.59 10*3/uLHigh4.00-10.60UnMercy Health St. Charles HospitalComment on above: Performed By: #### [id number] ####[facility] ([facility])[address] [place], [place] [address]GZLPBCJBOIEWB METABOLIC PANELon 69-72-4122Zenwfyf [Mass/Vol] 3.4 g/dLLow3.5-5.7UnMercy Health St. Charles HospitalComment on above:Performed By: #### [id number] ####[facility] ([facility])[address] [place] [address] ALP [Catalytic activity/Vol]38 U/OLhvkwd41-439SkhbtawauhMercy Health St. Charles HospitalComment on above:Performed By: #### [id number] ####[facility] ([facility])[address] [place], [place] [address]DLP [Catalytic activity/Vol]15 U/L Normal7-52UnMercy Health St. Charles HospitalComment on above:Performed By: #### [id number] ####[facility] ([facility])[address] [place], [place] [address]Pvwfw gap [Moles/Vol]13 mmol/LNormal7-20UnMercy Health St. Charles HospitalComment on above:Performed By: #### [id number] ####[facility] ([facility])[address] [place], [place] [address]RVO [Catalytic activity/Vol]39 U/WDkpbnz33-63OreeffftthMercy Health St. Charles HospitalComment on above:Performed By: #### [id number] ####[facility] ([facility])[address] [place], [place] [address]Txksqmifu [Mass/Vol]0.8 mg/dL Normal0.3-1.0UnMercy Health St. Charles HospitalComment on above:Performed By: #### [id number] ####[facility] ([facility])[address] [place] [address] Calcium [Mass/Vol]8.7 mg/dLNormal8.6-10.3UnMercy Health St. Charles Hospital Comment on above:Performed By: #### [id number] ####[facility] ([facility])[address] [place], [place] [address]Rdcogmaf [Moles/Vol]106 mmol/WEsoypy83-541 [facility] HospitalComment on above:Performed By: #### [id number] ####[facility] ([facility])[address] [place], [place] [address]GI6 [Moles/Vol] 22 mmol/CDnsowl44-16KpgrvvnbsvMercy Health St. Charles HospitalComment on above: Performed By: #### [id number] ####[facility] ([facility])[address] [place], [place] [address]Rhcuqgalqw [Mass/Vol]1.36 mg/dLHigh0.60-1.20UnMercy Health St. Charles HospitalComment on above:Performed By: #### [id number] ####[facility] ([facility])[address] [place] [address]ZZKYUXNRHP FILTRATION RATE ML/MIN/1.73 SQ M.APWUJMAVT56.9 mL/min/1.73m*2Low>60.0UnMercy Health St. Charles Hospital Comment on above:Result Comment: The [facility]???s estimated glomerular filtration rate (eGFR) will no longer include consideration of race in its calculation. The National Kidney Foundation???s eGFR Task Force developed new recommendations for the estimation of the glomerular filtration ra te in the [place] They recommend immediate implementation of the new equation refit without the race variable in all laboratories because the calculation does not include race. In addition to not including race in the calculation and reporting, it included diversity in its development, and has acceptable performance characteristics and potential consequences that do not disproportionately affect anyone group of individuals.Performed By: #### [id number] ####[facility] ([facility])[address] [place] [address]Gyrnbem [Mass/Vol]149 mg/aUXjlv25-175SbmsvxwdfnMercy Health St. Charles HospitalComment on above:Performed By: #### [id number] ####[facility] ([facility])[address] [place] [address]Swfrlovpo [Moles/Vol]4.0 mmol/LNormal3.5-5.1UnMercy Health St. Charles HospitalComment on above:Performed By: #### [id number] ####[facility] ([facility])[address] [place] [address]Vhzdnbi [Mass/Vol]5.4 g/dLLow 6.0-8.3UnMercy Health St. Charles HospitalComment on above:Performed By: #### [id number] ####[facility] ([facility])[address] [place] [address]Vzhmoa [Moles/Vol]137 mmol/SQbrute601-351GkhisfqzpaMercy Health St. Charles HospitalComment on above:Performed By: #### [id number] ####[facility] ([facility])[address] [address]Eure nitrogen [Mass/Vol]36 mg/dLHigh7-25UnMercy Health St. Charles HospitalComment on above:Performed By: #### [id number] ####[facility] ([facility])[address] [address]HETU NITROGEN/CREATININE (MASS RATIO) IN SER/PLAS26.5NormalUniversAdams County HospitalComment on above: Performed By: #### [id number] ####[facility] ([facility])[address] [address]GRZHKTHam 55-74-1671KNJCTJGDczwghJwwxnsucwn of [facility] HIGH SENSITIVITY TROPONIN Ion 88-80-6517KQ TROPONIN I (NG/L)5772 ng/LCritically high<15UnMercy Health St. Charles HospitalComment on above:Performed By: #### [id number] ####[facility] ([facility])[address] [address]FPtq 72-29-1054PHUmhtuhQxusmgsczdCincinnati Children's Hospital Medical CenterLACTIC ACID WITH 4 HOUR REFLEXon 51-79-7635XWRNKHU (MMOL/L) IN SER/PLAS1.5 mmol/LNormal0.5-2.2UnMercy Health St. Charles HospitalComment on above:Performed By: #### [id number] ####[facility] ([facility])[address] [place] [address]BUVVPKH (MMOL/L) IN SER/PLAS1.3 mmol/LNormal0.5-2.2UnMercy Health St. Charles HospitalComment on above:Performed By: #### [id number] ####[facility] ([facility])[address] [place], [place] [address]FJOMBNZ (MMOL/L) IN SER/PLAS1.6 mmol/LNormal0.5-2.2UnMercy Health St. Charles HospitalComment on above:Performed By: #### [id number] ####[facility] ([facility])[address] [place], [place] [address]LCAQWFQ (MMOL/L) IN SER/PLAS1.5 mmol/LNormal0.5-2.2UnMercy Health St. Charles HospitalComment on above:Performed By: #### [id number] ####[facility] ([facility])[address] [place] [address]EBZMHXM (MMOL/L) IN SER/PLAS1.6 mmol/LNormal0.5-2.2UnMercy Health St. Charles HospitalComment on above:Performed By: #### [id number] ####[facility] ([facility])[address] [place] [address]ZLTHLNDQEho 03-13-2025 Magnesium [Mass/Vol]2.5 mg/dLNormal1.9-2.7UnMercy Health St. [facility] Hospital Comment on above:Performed By: #### [id number] ####[facility] ([facility])[address] [place] [address]EJXNXIOZOHbz 18-27-5663Irshuudvq [Mass/Vol]4.7 mg/dLNormal2.5-5.0UnMercy Health St. Charles HospitalComment on above:Performed By: #### [id number] ####[facility] ([facility])[address] [place] [address] POCT GLUCOSE METER UNSOLICITED RESULTSon 53-56-7274Ftpvzwa [Mass/Vol]147 mg/dL Bprj64-357ZjltjsckurMercy Health St. Charles HospitalComment on above:Order Comment: Waived Testing in the ED is performed under the ED CLIA certificate #[id number]. Result Comment: cqlpxk1Mmpxwlyzo By: #### [id number] ####[facility] ([facility])[address] [place] [address]36yd 56-66-441104MdzczvEetqacvbex of [facility] CenterB-TYPE NATRIURETIC PEPTIDEon 50-63-1389Lbkcdvidaep peptide B (Bld) [Mass/Vol]662 pg/mLHigh0-100UnMercy Health St. Charles HospitalComment on above:Performed By: #### [id number] ####[facility] ([facility])[address] [facility] [place], [place] [address]QZWPH METABOLIC PANELon 17-13-3843Zxsfb gap [Moles/Vol]16 mmol/LNormal7-20UnMercy Health St. Charles HospitalComment on above:Performed By: #### [id number] ####[facility] ([facility])[address] [place] [address] Calcium [Mass/Vol]9.0 mg/dLNormal8.6-10.3UnMercy Health St. [facility] Comment on above:Performed By: #### [id number] ####[facility] ([facility])[address] [facility] [place], [place] [address]Wuwmwgng [Moles/Vol]106 mmol/YZmumyy28-678 [facility] HospitalComment on above:Performed By: #### [id number] ####[facility] ([facility])[address] [place], [place] [address]UL4 [Moles/Vol] 22 mmol/XMkxqnj16-61BzjzljdrloMercy Health St. Charles HospitalComment on above: Performed By: #### [id number] ####[facility] ([facility])[address] [place], [place] [address]Kioukgiwwp [Mass/Vol]1.42 mg/dLHigh0.60-1.20UnMercy Health St. Charles HospitalComment on above:Performed By: #### [id number] ####[facility] ([facility])[address] [place], [place] [address]NGCCQMYCYW FILTRATION RATE ML/MIN/1.73 SQ M.NCHYPJFHV83.9 mL/min/1.73m*2Low>60.0UnMercy Health St. [facility] Comment on above:Result Comment: The [facility]???s estimated glomerular filtration rate (eGFR) will no longer include consideration of race in its calculation. The National Kidney Foundation???s eGFR Task Force developed new recommendations for the estimation of the glomerular filtration ra te in the [place] They recommend immediate implementation of the new equation refit without the race variable in all laboratories because the calculation does not include race. In addition to not including race in the calculation and reporting, it included diversity in its development, and has acceptable performance characteristics and potential consequences that do not disproportionately affect anyone group of individuals.Performed By: #### [id number] ####[facility] ([facility])[address] [place] [address]Gnnrqwq [Mass/Vol]149 mg/zHXsnt01-850FpjkbudfqnMercy Health St. Charles HospitalComment on above:Performed By: #### [id number] ####[facility] ([facility])[address] [place] [address]Hdfdlrsdu [Moles/Vol]4.8 mmol/LNormal3.5-5.1UnMercy Health St. Charles HospitalComment on above:Performed By: #### [id number] ####[facility] ([facility])[address] [place] [address]Sjnlzx [Moles/Vol]139 mmol/L Hpkkka838-579OzgyrgoxccMercy Health St. Charles HospitalComment on above:Performed By: #### [id number] ####[facility] ([facility])[address] [place], [place] [address]Uuuy nitrogen [Mass/Vol]30 mg/dLHigh7-25UnMercy Health St. Charles HospitalComment on above:Performed By: #### [id number] ####[facility] ([facility])[address] [place], [place] [address]KJBX NITROGEN/CREATININE (MASS RATIO) IN SER/PLAS21.1Normal [facility] HospitalComment on above:Performed By: #### [id number] ####[facility] ([facility])[address] [place], [place] [address]KXKXS CULTUREon 04-99-0823Gblzwbyd identified Cx Nom (Bld)No growth at 5 daysNormalUniCincinnati Children's Hospital Medical CenterComment on above:Performed By: #### [id number] ####[facility] ([facility])[address] [place], [place] [address]Izfrk Comment: From a different site than #1.BODY FLUID CELL DIFFERENTIALon 91-74-0591STHGXKVLV TOTAL PER COUNTED LEUKOCYTES IN BODY FLUID BY MANUAL COUNTNormalUniversAdams County HospitalComment on above:Order Comment: Differential performed on cytospin Performed By: #### [id number] ####[facility] ([facility])[address] [place], [place] [address]IYOUD COUNTED TOTAL (#) IN BODY XNIOI291BlyotmGrinykiknrCincinnati Children's Hospital Medical CenterComhelen [facility]os [facility] on above:Order Comment: Differential performed on cytospinPerformed By: #### [id number] ####[facility] ([facility])[address] [place], [place] [address]RETCHCNJCFH TOTAL PER COUNTED LEUKOCYTES IN BODY FLUID BY MANUAL COUNTNormalUniversAdams County HospitalComhelen devos [facility] hospital on above:Order Comment: Differential performed on cytospinPerformed By: #### [id number] ####[facility] ([facility])[address] [place], [place] [address]STZQOJPTYWS TOTAL PER COUNTED LEUKOCYTES IN BODY FLUID BY MANUAL TLKLL3JswlbfQucucfrbiiCincinnati Children's Hospital Medical CenterComhelen [facility] on above:Order Comment: Differential performed on cytospin Performed By: #### [id number] ####[facility] ([facility])[address] [place], [place] [address]VXEFBHUPAIS CELLS TOTAL PER COUNTED LEUKOCYTES IN BODY FLUID BY MANUAL COUNNormalUniCincinnati Children's Hospital Medical CenterComhelen [facility] on above:Order Comment: Differential performed on cytospinPerformed By: #### [id number] ####[facility] ([facility])[address] [place], [place] [address]GLGGUQNSI+MACROPHAGES TOTAL PER COUNTED LEUKOCYTES IN BODY FLUID BY FQSHGE3RqhtyyDysjjyoyweCincinnati Children's Hospital Medical CenterComhelen [facility] on above:Order Comment: Differential performed on cytospin Performed By: #### [id number] ####[facility] ([facility])[address], [place] [address]UDYZMQJTWIB TOTAL PER COUNTED LEUKOCYTES IN BODY FLUID BY MANUAL FPWRR94NdvguvXvwftsesvgCincinnati Children's Hospital Medical CenterComhelen [facility] on above:Order Comment: Differential performed on cytospinPerformed By: #### [id number] ####[facility] ([facility])[address] [place], [place] [address]EVBNY CELLS BODY FLUID (MANUAL)NormalUnMercy Health St. Charles HospitalComhelen devos [facility] on above:Order Comment: Differential performed on cytospinPerformed By: #### [id number] ####[facility] ([facility])[address] [place] [address]HWL WITH AUTO DIFFERENTIALon 77-00-7228Pkntnozsc (Bld) [#/Vol]0.02 10*3/uLNormal0.00-0.20UnMercy Health St. Charles HospitalComment on above:Performed By: #### [id number] ####[facility] ([facility])[address] [place], [place] [address]Zwldrtncs/100 WBC (Bld)0.2 %Normal 0.0-1.0UnMercy Health St. Charles HospitalComment on above:Performed By: #### [id number] ####[facility] ([facility])[address] [facility] [address] Eosinophils (Bld) [#/Vol]0.00 10*3/uLNormal0.00-0.50UnMercy Health St. Charles HospitalComment on above:Performed By: #### [id number] ####[facility] ([facility])[address] [facility] [place] [address]Elhtpdsrrte/100 WBC (Bld)0.0 %Normal 0.0-6.0UnMercy Health St. Charles HospitalComment on above:Performed By: #### [id number] ####[facility] ([facility])[address] [facility] [place] [address] Erythrocyte distribution width (RBC) [Ratio]14.0 %Tleqto68.5-15.0UnMercy Health St. Charles HospitalComment on above:Performed By: #### [id number] ####[facility] ([facility])[address] [facility] [place], [place] [address]NVTASWQECVU MEAN CORPUSCULAR HEMOGLOBIN CONCENTRATION (G/DL) BY GXWFWOHMW02.1 g/hBHblnqk29.0-35.0 [facility] HospitalComment on above:Performed By: #### [id number] ####[facility] ([facility])[address] [place], [place] [address]Guilyekiyy (Bld) [Volume fraction]35.6 %Low36.0-45.0UnMercy Health St. Charles HospitalComment on above:Performed By: #### [id number] ####[facility] ([facility])[address] [place], [place] [address]Oxjpldksyo (Bld) [Mass/Vol]11.8 g/dLLow12.0-15.0UnMercy Health St. Charles HospitalComment on above:Performed By: #### [id number] ####[facility] ([facility])[address] [place], [place] [address]Lgxbcdce granulocytes (Bld) [#/Vol]0.05 10*3/uLNormal0.00-0.20UnMercy Health St. [facility] Comment on above:Performed By: #### [id number] ####[facility] ([facility])[address] [place], [place] [address]Oswbddzp granulocytes/100 WBC (Bld)0.4 %Normal 0.0-1.0UnMercy Health St. Charles HospitalComment on above:Performed By: #### [id number] ####[facility] ([facility])[address] [place] [address] Lymphocytes (Bld) [#/Vol]0.61 10*3/uLLow1.20-4.00UnMercy Health St. Charles HospitalComment on above:Performed By: #### [id number] ####[facility] ([facility])[address] [place], [place] [address]Azidlnesdgk/100 WBC (Bld)4.6 %Low 20.0-45.0UnMercy Health St. Charles HospitalComment on above:Performed By: #### [id number] ####[facility] ([facility])[address] [place], [place] [address]PVQ (RBC) [Entitic mass]31.1 lfMwfzwq00.0-33.0UnMercy Health St. [facility] Comment on above:Performed By: #### [id number] ####[facility] ([facility])[address] [place], [place] [address]CUA (RBC) [Entitic vol]93.7 eSOwfeid89.0-98.0 [facility] HospitalComment on above:Performed By: #### [id number] ####[facility] [place] [address]Kqyvtjvrb (Bld) [#/Vol]0.58 10*3/uLNormal0.10-1.00UnMercy Health St. Charles HospitalComment on above:Performed By: #### [id number] ####[facility] ([facility])[address] [place] [address]Grwyuiucq/100 WBC (Bld)4.4 %Low5.0-12.0UnMercy Health St. Charles HospitalComment on above:Performed By: #### [id number] ####[facility] ([facility])[address] [place] [address]Uzscswqhoae (Bld) [#/Vol]12.06 10*3/uL High1.60-7.60UnMercy Health St. Charles HospitalComment on above:Performed By: #### [id number] ####[facility] ([facility])[address] [place] [address] Neutrophils/100 WBC (Bld)90.4 %High40.0-72.0UnMercy Health St. [facility] Comment on above:Performed By: #### [id number] ####[facility] ([facility])[address] [place] [address]GARX (PER 100 WBCS) BY AUTOMATED COUNT0.0 %Normal0 [facility] HospitalComment on above:Performed By: #### [id number] ####[facility] ([facility] [facility], [place] [address]OCPSORPUZ (10*3/UL) IN BLOOD AUTOMATED GYAGS703 10*3/dDSdmatk243-233QxladijcnrMercy Health St. Charles HospitalComment on above:Performed By: #### [id number] ####[facility] ([facility])[address] [place] [address]TNS (Bld) [#/Vol]3.80 10*6/uLNormal 3.80-5.00UnMercy Health St. Charles HospitalComment on above:Performed By: #### [id number] ####[facility] ([facility])[address] [place] [address]OUW (Bld) [#/Vol]13.32 10*3/uLHigh4.00-10.60UnMercy Health St. Charles Hospital Comment on above:Performed By: #### [id number] ####[facility] ([facility])[address] [place] [address]Swkdatwcf (Bld) [#/Vol]0.06 10*3/uLNormal0.00-0.20 [facility] HospitalComment on above:Performed By: #### [id number] ####[facility] ([facility])[address] [place] [address]Pudeizbbt/100 WBC (Bld)0.3 %Normal0.0-1.0UnMercy Health St. Charles HospitalComment on above: Performed By: #### [id number] ####[facility] ([facility])[address] [place], [place] [address]Zrdrnhtjfaf (Bld) [#/Vol]0.08 10*3/uLNormal0.00-0.50 [facility] HospitalComment on above:Performed By: #### [id number] ####[facility] ([facility])[address] [place] [address]Uolndifmaqq/100 WBC (Bld)0.4 %Normal0.0-6.0UnMercy Health St. Charles HospitalComment on above: Performed By: #### [id number] ####[facility] ([facility])[address] [place], [place] [address]Dmlvbyppnhk distribution width (RBC) [Ratio]13.6 %Normal 11.5-15.0UnMercy Health St. Charles HospitalComment on above:Performed By: #### [id number] ####[facility] ([facility]AKER)[address] [place] [address] ERYTHROCYTE MEAN CORPUSCULAR HEMOGLOBIN CONCENTRATION (G/DL) BY XEOMMRPEQ84.0 g/bFMlaypp67.0-35.0UnMercy Health St. Charles HospitalComment on above:Performed By: #### [id number] ####[facility] ([facility])[address] [place], [place] [address]Jvdjzuzihm (Bld) [Volume fraction]43.3 %Ceijrd84.0-45.0UnMercy Health St. Charles HospitalComment on above:Performed By: #### [id number] ####[facility] ([facility])[address] [place], [place] [address]Mybxbtchyw (Bld) [Mass/Vol]14.3 g/dL Lsexms53.0-15.0UnMercy Health St. Charles HospitalComment on above:Performed By: #### [id number] ####[facility] ([place] [facility])[address] [place] [address] Immature granulocytes (Bld) [#/Vol]0.11 10*3/uLNormal0.00-0.20UnMercy Health St. Charles HospitalComment on above:Performed By: #### [id number] ####[facility] (BEAKER)[address] [place], [place] [address]Cnodkkbo granulocytes/100 WBC (Bld)0.5 %Normal0.0-1.0UnMercy Health St. Charles HospitalComment on above: Performed By: #### [id number] ####[facility] (BEAKER)[address] [place], [place] [address]Ymjaeziureo (Bld) [#/Vol]0.49 10*3/uLLow1.20-4.00UnMercy Health St. Charles HospitalComment on above:Performed By: #### [id number] ####[facility] ([facility]AKER)[address] [place], [place] [address]Itnuadwphus/100 WBC (Bld) 2.1 %Low20.0-45.0UnMercy Health St. Charles HospitalComment on above:Performed By: #### [id number] ####[facility] ([facility]ER)[address] [place] [address]HDM (RBC) [Entitic mass]31.0 cxTtgsjk35.0-33.0UnMercy Health St. Charles HospitalComment on above:Performed By: #### [id number] ####[facility] ([facility]AKER)[address] [place] [address]ISC (RBC) [Entitic vol]93.9 fLNormal 82.0-98.0UnMercy Health St. Charles HospitalComment on above:Performed By: #### [id number] ####[facility] ([facility])[address] [place] [address] Monocytes (Bld) [#/Vol]0.84 10*3/uLNormal0.10-1.00UnMercy Health St. Charles HospitalComment on above:Performed By: #### [id number] ####[facility] (BEAKER)[address] [place], [place] [address]Kjzgbqmeq/100 WBC (Bld)3.7 %Low 5.0-12.0UnMercy Health St. Charles HospitalComment on above:Performed By: #### [id number] ####[facility] (AKER)[address] [place] [address] Neutrophils (Bld) [#/Vol]21.23 10*3/uLHigh1.60-7.60UnMercy Health St. Charles HospitalComment on above:Performed By: #### [id number] ####[facility] (BEAKER)[address] [place], [place] [address]Ueooscpaxje/100 WBC (Bld)93.0 %High 40.0-72.0UnMercy Health St. Charles HospitalComment on above:Performed By: #### [id number] ####[facility] ([facility]ER)[address] [place] [address]CGBV (PER 100 WBCS) BY AUTOMATED COUNT0.0 %Iqefbq1OnwnyaeiieMercy Health St. Charles Hospital Comment on above:Performed By: #### [id number] ####[facility] (BEAKER)[address] [place], [place] [address]HJRTDEHRC (10*3/UL) IN BLOOD AUTOMATED HPIWH834 10*3/nJSirwkc451-170KffsqjhvjuMercy Health St. Charles HospitalComment on above: Performed By: #### [id number] ####[facility] ([facility])[address] [place] [address]MHN (Bld) [#/Vol]4.61 10*6/uLNormal3.80-5.00UnMercy Health St. Charles HospitalComment on above:Performed By: #### [id number] ####[facility] ([facility])[address] [place] [address]JUZ (Bld) [#/Vol]22.81 10*3/uLHigh4.00-10.60UnMercy Health St. Charles HospitalComment on above: Performed By: #### [id number] ####[facility] ([facility])[address] [place] [address]WTEMXEGHFSUTZ METABOLIC PANELon 68-58-3051Ajmzsac [Mass/Vol] 3.6 g/dLNormal3.5-5.7UnMercy Health St. Charles HospitalComment on above: Performed By: #### [id number] ####[facility] ([facility])[address] [place] [address]JEZ [Catalytic activity/Vol]47 U/RYxvypy87-423WuxizmfdxiMercy Health St. Charles HospitalComment on above:Performed By: #### [id number] ####[facility] ([facility])[address] [place] [address]YLG [Catalytic activity/Vol]16 U/L Normal7-52UnMercy Health St. Charles HospitalComment on above:Performed By: #### [id number] ####[facility] ([facility])[address] [place], [place] [address]Pgceb gap [Moles/Vol]17 mmol/LNormal7-20UnMercy Health St. Charles HospitalComment on above:Performed By: #### [id number] ####[facility] ([facility])[address] [place], [place] [address]IKE [Catalytic activity/Vol]44 U/CYpsn96-84NtjesfzaqgMercy Health St. Charles HospitalComment on above:Performed By: #### [id number] ####[facility] ([facility])[address] [place] [address]Wczfygyqc [Mass/Vol]0.6 mg/dL Normal0.3-1.0UnMercy Health St. Charles HospitalComment on above:Performed By: #### [id number] ####[facility] ([facility])[address] [place] [address] Calcium [Mass/Vol]9.2 mg/dLNormal8.6-10.3UnMercy Health St. Charles Hospital Comment on above:Performed By: #### [id number] ####[facility] ([facility])[address] [place] [address]Jburkwzf [Moles/Vol]108 mmol/FLzqx54-077ArpsqhzgzrMercy Health St. Charles HospitalComment on above:Performed By: #### [id number] ####[facility] ([facility])[address] [place] [address]GN6 [Moles/Vol]20 mmol/L Trs58-83EvrvmlzizlMercy Health St. Charles HospitalComment on above:Performed By: #### [id number] ####[facility] ([facility])[address] [place] [address]Dbxvgvqfan [Mass/Vol]1.31 mg/dLHigh0.60-1.20UnMercy Health St. Charles HospitalComment on above:Performed By: #### [id number] ####[facility] ([facility])[address] [place] [address]PSTYUJVGJO FILTRATION RATE ML/MIN/1.73 SQ M.FWMQGLIIU72.7 mL/min/1.73m*2Low>60.0UnMercy Health St. Charles HospitalComment on above:Result Comment: The [facility]???s estimated glomerular filtration rate (eGFR) will [...] potential consequences that do not disproportionately affect anyone group of individuals.Performed By: #### [id number] ####[facility] ([facility])[address] [place], [place] [address]Wgawtxc [Mass/Vol]203 mg/gBQjxf13-793FnramgpomdMercy Health St. Charles HospitalComment on above:Performed By: #### [id number] ####[facility] ([facility])[address] [place], [place] [address]Wybrafstc [Moles/Vol]4.7 mmol/L Normal3.5-5.1[facility] HospitalComment on above:Performed By: #### [id number] ####[facility] ([facility])[address] [place] [address] Protein [Mass/Vol]5.6 g/dLLow6.0-8.3UnMercy Health St. Charles HospitalComment on above:Performed By: #### [id number] ####[facility] ([facility])[address] [place], [place] [address]Crmloi [Moles/Vol]140 mmol/PDqyrsk167-333EircxboxxuMercy Health St. Charles HospitalComment on above:Performed By: #### [id number] ####[facility] ([facility])[address] [place], [place] [address]Yqng nitrogen [Mass/Vol]23 mg/dLNormal 7-25UnMercy Health St. Charles HospitalComment on above:Performed By: #### [id number] ####[facility] ([facility])[address] [place], [place] [address]CJNK NITROGEN/CREATININE (MASS RATIO) IN SER/PLAS17.6NormalUniversAdams County HospitalComment on above:Performed By: #### [id number] ####[facility] ([facility])[address] [place], [place] [address]GM CHEST WO IV CONTRASTon 66-58-9503MJ CHEST WO IV CONTRASTInvalid Interpretation CodeUnMercy Health St. Charles HospitalHIGH SENSITIVITY TROPONIN Ion 20-74-7441PG TROPONIN I (NG/L)8267 ng/L Critically high<15UnMercy Health St. Charles HospitalComment on above:Performed By: #### [id number] ####[facility])[address] [place], [place] [address]YO TROPONIN I (NG/L)7749 ng/LCritically high<15UnMercy Health St. Charles HospitalComment on above:Performed By: #### [id number] ####[facility] ([facility])[address] [place], [place] [address]NK TROPONIN I (NG/L)7895 ng/L Critically high<15UnMercy Health St. Charles HospitalComment on above:Performed By: #### [id number] ####[facility] ([facility])[address] [place], [place] [address]RK TROPONIN I (NG/L)86[address] ng/LCritically high<15UnMercy Health St. Charles HospitalComment on above:Performed By: #### [id number] ####[facility] ([facility])[address] [place], [place] [address]ZMdh 04-96-3645KAJvzwwsLzgnuopigg of [place] Medical CenterHYPERSENSITIVITY PNEUMONITIS PANEL 15A. PULLULANS ABSNot detectedNormalNone DetectedUnMercy Health St. Charles Hospital Comment on above:Performed By: #### [id number] ####[facility] ([employer])[address] [place], [place] [address]FGKCYRTMEPU FUMIGATUS #1Not detectedNormal None DetectedUnMercy Health St. Charles HospitalComment on above:Performed By: #### [id number] ####[facility] ([employer])[address] [place] [address] ASPERGILLUS FUMIGATUS #6Not detectedNormalNone DetectedUnMercy Health St. Charles HospitalComment on above:Performed By: #### [id number] ####[facility] ([facility])[address] [place], [place] [address]D FAENI AB, PRECIPITINNot detectedNormalNone DetectedUnMercy Health St. Charles HospitalComment on above: Result Comment: Testing includes antibodies directed at Aureobasidium pullulans,Aspergillus fumigatus #1, Aspergillus fumigatus #6, Micropolysporafaeni, and Friendship Serum.Performed By: [facility] [place] [id number] Director: Ryley Cardenas MD, PhDCLIA Number: [id number] By: #### [id number] ####[facility] ([facility])[address] [place], [place] [address]TVXUHB SERUM ABSNot detectedNormalNone DetectedUnMercy Health St. Charles HospitalComment on above:Performed By: #### [id number] ####[facility] ([facility])[address] [place] [address] HYPERSENSITIVITY PNEUMONITIS PANEL 2on 61-34-9195ECXASQJLMRK FLAVUS AB, PRECIPITINNot detectedNormalNone DetectedUnMercy Health St. [facility] Hospital Comment on above:Performed By: #### [id number] ####[facility] ([employer])[address] [place] [address]XKPMSBKFSSA FUMIGATUS #2Not detectedNormal None DetectedUnMercy Health St. Charles HospitalComment on above:Performed By: #### [id number] ####[facility] ([facility])[address] [place] [address] ASPERGILLUS FUMIGATUS #3Not detectedNormalNone DetectedUnMercy Health St. Charles HospitalComment on above:Performed By: #### [id number] ####[facility] ([employer])[address] [place], [place] [address]T VIRIDIS AB, PRECIPITINNot detectedNormalNone DetectedUnMercy Health St. Charles HospitalComment on above: Performed By: #### [id number] ####[facility] ([facility])[address] [place], [place] [address]W. CANDIDUS AB, PRECIPITINNot detectedNormalNone Detected [facility] HospitalComment on above:Result Comment: Testing includes antibodies directed at Aspergillus flavus,Aspergillus fumigatus #2, Aspergillus fumigatus #3,Saccharomonospora viridis, and Thermoactinomyces candidus.Performed By: [facility] [place], [place] [address]Kdryjuzqgv Director: Ryley Cardenas MD, PhDCLIA Number: [id number] Performed By: #### [id number] ####[facility] ([facility])[address], [place] [address]XCSCRZKTBMGGYA Arturo 57-16-9209FFNKBHTTMPSB E<7Becexv0-406LvzcphubdxMercy Health St. Charles HospitalComment on above:Result Comment: Test Performed by [facility] [address] [place] [address] - Released 03/13/2025 13:36Performed By: #### [id number] ####[facility] [id number] [place], [place] [address]WKJWMJ ACID WITH 4 HOUR REFLEXon 39-62-2211NCSSQNT (MMOL/L) IN SER/PLAS2.0 mmol/LNormal0.5-2.2UnMercy Health St. Charles HospitalComment on above:Performed By: #### [id number] ####[facility] ([facility])[address] [place], [place] [address]BIJDUUO (MMOL/L) IN SER/PLAS3.1 mmol/LCritically high0.5-2.2 [facility] HospitalComment on above:Result Comment: M-PREVIOUS CRITICAL RESULTPrevious result verified on 03/12/2025 1855 on specimen/case 25H- [id number] called with component Lactate blood venous for procedure Lactic acid with 4 hour reflex with value 3.2 mmol/L.Performed By: #### [id number] ####[facility] ([facility])[address] [place], [place] [address]RTJGSFX (MMOL/L) IN SER/PLAS3.2 mmol/LCritically high0.5-2.2UnMercy Health St. [facility] Comment on above:Result Comment: M-PREVIOUS CRITICAL RESULTPerformed By: #### [id number] ####[facility] (BEAKER)[address] [place], [place] [address]TKKITRH (MMOL/L) IN SER/PLAS3.3 mmol/LCritically high0.5-2.2UnMercy Health St. Charles HospitalComment on above:Result Comment: M-PREVIOUS CRITICAL RESULTPrevious result verified on 03/12/2025 1315 on specimen/case [facility]-[id number] called with component Lactate blood venous for procedure Lactic acid with 4 hour reflex with value 3.4 mmol/L.Performed By: #### [id number] ####[facility] ([facility])[address], [place] [address]YKRVTUM (MMOL/L) IN SER/PLAS3.4 mmol/L Critically high0.5-2.2UnMercy Health St. Charles HospitalComment on above:Order Comment: Previous Critical Result.Performed By: #### [id number] ####[facility] ([facility])[address] [place], [place] [address]UMHMTBE (MMOL/L) IN SER/PLAS4.4 mmol/LCritically high0.5-2.2UnMercy Health St[address] Charles HospitalComment on above: Result Comment: Previous result verified on 03/12/2025 0819 on specimen/case [facility]- [id number] called with component Lactate blood venous for procedure Lactic acid with 4 hour reflex with value 3.3 mmol/L.Performed By: #### [id number] ####[facility] ([facility])[address] [place], [place] [address]IFCXHJL (MMOL/L) IN SER/PLAS3.3 mmol/LCritically high0.5-2.2UnMercy Health St. [facility] Comment on above:Performed By: #### [id number] ####[facility] ([facility])[address] [place], [place] [address]GHZPEURRED ANTIGEN, URINEon 15-34-9969GLGDQUSVRD AG, URNegativeNormalNEGUnMercy Health St. Charles HospitalComment on above: Result Comment: L. pneumophila serogroup 1 antigen not detected.A negative result does not exclude infection with Leginella pnemophila serogroup 1 nor does it rule out other microbial-caused respiratory infections of disease caused by other serogroups of Legionella pneumophila.Test Performed by [employer] [address] [place] [address] - Released 03/12/2025 15:36 Performed By: #### [id number] ####[facility] [id number] [place] [address] MAGNESIUMon 78-20-0434Ebvbkknlh [Mass/Vol]2.6 mg/dLNormal1.9-2.7UnMercy Health St. Charles HospitalComment on above:Performed By: #### [id number] ####[facility] ([facility])[address] [place], [place] [address]Xbessablq [Mass/Vol]2.5 mg/dLNormal1.9-2.7UnMercy Health St. Charles HospitalComment on above:Performed By: #### [id number] ####[facility] ([facility])[address] [place] [address] MRSA/MSSA DNA NASALon 03-58-3645GGAZ DNANegativeNormalNegativeUnMercy Health St. Charles HospitalComment on above:Order Comment: Testing methodology is an automated qualitative in [...] A negative result does not preclude nasal colonization.Performed By: #### [id number] ####[facility] ([facility])[address] [place], [place] [address]AAQM DNANegativeNormalNegative [facility] HospitalComment on above:Order Comment: Testing methodology is an automated qualitative in vitro diagnostic test for the dire ctdetection and differentiation of Staphylococcus aureus (SA) DNA and methicillin-resistant Staphylococcus aureus (MRSA) DNA from nasal swabs in patients at risk for nasal colonization. The test utilizes real-time polymerase chain reaction (PCR) for the amplification of MRSA/SA DNA and fluorogenic t arget-specific hybridization probes for the detection of the amplified DNA. A negative result does not preclude nasal colonization.Performed By: #### [id number] ####[facility] ([facility])[address] [place], [place] [address]JQQBSXDEvg 02-56-9534WGGVBANIYmpjrv, RN called reportNormalUniversity of Pampa Regional Medical CenterPATHOLOGY REVIEWon 42-68-4612NHCKOINHV REVIEWReviewed.StevensvilleUnMercy Health St. Charles HospitalComment on above:Result Comment: .Performed By: #### [id number] ####[facility] ([facility])[address] [place], [place] [address]BEENXGEMKKfa 03-12-2025 Magnesium [Mass/Vol]4.2 mg/dLNormal2.5-5.0UnMercy Health St. [facility] Comment on above:Performed By: #### [id number] ####[facility] ([facility])[address] [place], [place] [address]Onkxppfwy [Mass/Vol]4.4 mg/dLNormal2.5-5.0 [facility] HospitalComment on above:Performed By: #### [id number] ####[facility] ([facility])[address] [place], [place] [address]YRWD GLUCOSE METER UNSOLICITED RESULTSon 53-99-4197Dqhlzhd [Mass/Vol]150 mg/qKOkay58-372 [facility] HospitalComment on above:Order Comment: Waived Testing in the ED is performed under the ED CLIA certificate #[id number].Result Comment: [id number] By: #### [id number] ####[facility] ([facility])[address] [place], [place] [address]Bwgqheb [Mass/Vol]176 mg/iMSfdy92-555OpohsicfklMercy Health Urbana HospitalComment on above:Order Comment: Waived Testing in the ED is performed under the ED CLIA certificate #[id number].Result Comment: [email or web address] Performed By: #### [id number] ####[facility] (BEAKER)[address] [place], [place] [address]Gcwadmh [Mass/Vol]215 mg/pYUfux58-916StoqshtcwhMercy Health St. Charles HospitalComment on above:Order Comment: Waived Testing in the ED is performed under the ED CLIA certificate #[id number].Result Comment: [email or web address] Performed By: #### [id number] ####[facility] ([facility])[address] [facility] CampusMAGEE [facility] [place], [place] [address]PMSRGQBESMLQM TESTon 91-48-9639GGZKCUSMIJRSI IN BLOOD15.02 ng/mLCritically high0.00-0.10UnMercy Health St. Charles HospitalComment on above:Result Comment: Monitor triglycerides while patient is on propofol Performed By: #### [id number] ####[facility] ([facility])[address] AVTrustIDMAGEE REHABILITATION [place]ITAL[place], [place] [address]NNNKWRHHFYZ CULTUREon 31-52-6927Tbuegmit identified Cx Nom (Unsp spec)No growth at 5 daysNormalUniversAdams County HospitalComment on above:Performed By: #### [id number] ####[facility] ([facility])[address] CampusMAG[facility] [place], [place] [address]PFWV STAIN RESULTNormalUniversAdams County Hospital Comment on above:Result Comment: Many Polymorphonuclear leukocytesNo organisms seenPerformed By: #### [id number] ####[facility] ([facility])[address] [facility] [place], [place] [address]BGHEBCCKMVL VIRUS PCR PANELon 95-33-0061UEAUJZFITL DETECTION BY PCRNot detectedNormalNot DetectedUnMercy Health St. Charles HospitalComment on above:Order Comment: Testing methodology is a multiplexed nucleic acid test intended for the simultaneousqualitative detection and differentiation of nucleic acids from multiple viral and bacterial respiratory organisms in nasopharyngeal swabs (FRANKFURTER INSPECTOR).Performed By: #### [id number] ####[facility] ([facility])[address] Campus[facility] [place], [place] [address]T. PARAPERTUSSIS DNANot detectedNormal Not DetectedUnMercy Health St. Charles HospitalComment on above:Order Comment: Testing methodology is a multiplexed nucleic acid test intended for the simultaneousqualitative detection and differentiation of nucleic acids from multiple viral and bacterial respiratory organisms in nasopharyngeal swabs (FRANKFURTER INSPECTOR).Performed By: #### [id number] ####[facility] ([facility])[address] [place], [place] [address]WLNTYLCNZZ PERTUSSIS DNA PRESENCE IN UNSPECIFIED SPECIMEN BY MI*Not detectedNormalNot DetectedUnMercy Health St. Charles HospitalComment on above:Order Comment: Testing methodology is a multiplexed nucleic acid test intended for the simultaneousqualitative detection and differentiation of nucleic acids from multiple viral and bacterial respiratory organisms in nasopharyngeal swabs (FRANKFURTER INSPECTOR).Performed By: #### [id number] ####[facility] ([facility])[address] [place], [place] [address]IMZWXCZDDFQYT PNEUMONIAENot detected NormalNot DetectedUnMercy Health St. Charles HospitalComment on above:Order Comment: Testing methodology is a multiplexed nucleic acid test intended for the simultaneousqualitative detection and differentiation of nucleic acids from multiple viral and bacterial respiratory organisms in nasopharyngeal swabs (FRANKFURTER INSPECTOR).Performed By: #### [id number] ####[facility] ([facility])[address] [place], [place] [address]MPCGYOIYYRU 229ENot detectedNormalNot DetectedUnMercy Health St. Charles HospitalComment on above:Order Comment: Testing methodology is a multiplexed nucleic acid test intended for the simultaneousqualitative detection and differentiation of nucleic acids from multiple viral and bacterial respira tory organisms in nasopharyngeal swabs (FRANKFURTER INSPECTOR).Performed By: #### [id number] ####[facility] ([facility])[address] [place], [place] [address]WVULSSLEUBL WHA8Puc detectedNormalNot DetectedUnMercy Health St. Charles HospitalComment on above: Order Comment: Testing methodology is a multiplexed nucleic acid test intended for the simultaneousqualitative detection and differentiation of nucleic acids from multiple viral and bacterial respiratory organisms in nasopharyngeal swabs (FRANKFURTER INSPECTOR).Performed By: #### [id number] ####[facility] ([facility])[address] [place], [place] [address]CKVJVGFIXPC MY50Oxy detectedNormalNot DetectedUnMercy Health St. Charles HospitalComment on above:Order Comment: Testing methodology is a multiplexed nucleic acid test intended for the simultaneousqualitative detection and differentiation of nucleic acids from multiple viral and bacterial respira tory organisms in nasopharyngeal swabs (FRANKFURTER INSPECTOR).Performed By: #### [id number] ####[facility] ([facility])[address], [place] [address]MKVCEMVVIYI PG40Hks detectedNormalNot DetectedUnMercy Health St. Charles HospitalComment on above: Order Comment: Testing methodology is a multiplexed nucleic acid test intended for the simultaneousqualitative detection and differentiation of nucleic acids from multiple viral and bacterial respiratory organisms in nasopharyngeal swabs (FRANKFURTER INSPECTOR).Performed By: #### [id number] ####[facility] ([facility])[address] [place], [place] [address]DWLBR METAPNEUMOVIRUSDetectedAbnormalNot DetectedUnMercy Health St. Charles HospitalComment on above:Order Comment: Testing methodology is a multiplexed nucleic acid test intended for the simultaneousqualitative detection and differentiation of nucleic acids from multiple viral and bacterial respiratory organisms in nasopharyngeal swabs (FRANKFURTER INSPECTOR).Performed By: #### [id number] ####[facility] ([facility])[address], [place] [address]ITVZC RHINOVIRUS+ENTEROVIRUSNot detectedNormalNot DetectedUnMercy Health St. Charles HospitalComment on above:Order Comment: Testing methodology is a multiplexed nucleic acid test intended for the simultaneousqualitative detection and differentiation of nucleic acids from multiple viral and bacterial respiratory organisms in nasopharyngeal swabs (FRANKFURTER INSPECTOR).Performed By: #### [id number] ####[facility] ([facility])[address] [id number] ANot detected NormalNot DetectedUnMercy Health St. Charles HospitalComment on above:Order Comment: Testing methodology is a multiplexed nucleic acid test intended for the simultaneousqualitative detection and differentiation of nucleic acids from multiple viral and bacterial respiratory organisms in nasopharyngeal swabs (FRANKFURTER INSPECTOR).Performed By: #### [id number] ####[facility] ([facility])[address] [place], [place] [address]UTISNVGDY BNot detectedNormalNot DetectedUnMercy Health St. Charles HospitalComment on above:Order Comment: Testing methodology is a multiplexed nucleic acid test intended for the simultaneousqualitative detection and differentiation of nucleic acids from multiple viral and bacterial respira tory organisms in nasopharyngeal swabs (FRANKFURTER INSPECTOR).Performed By: #### [id number] ####[facility] ([facility])[address], [place] [address]NREUXRGQFI PNEUMONIAENot detectedNormalNot DetectedUnMercy Health St. Charles HospitalComment on above: Order Comment: Testing methodology is a multiplexed nucleic acid test intended for the simultaneousqualitative detection and differentiation of nucleic acids from multiple viral and bacterial respiratory organisms in nasopharyngeal swabs (FRANKFURTER INSPECTOR).Performed By: #### [id number] ####[facility] ([facility])[address], [place] [address]RNWIUKKPLGGGA 1Not detectedNormalNot DetectedUnMercy Health St. Charles HospitalComment on above:Order Comment: Testing methodology is a multiplexed nucleic acid test intended for the simultaneousqualitative detection and differentiation of nucleic acids from multiple viral and bacterial respira tory organisms in nasopharyngeal swabs (FRANKFURTER INSPECTOR).Performed By: #### [id number] ####[facility] ([facility])[address], [place] [address]HEZQQMZTKOABY 2Not detectedNormalNot DetectedUnMercy Health St. Charles HospitalComment on above: Order Comment: Testing methodology is a multiplexed nucleic acid test intended for the simultaneousqualitative detection and differentiation of nucleic acids from multiple viral and bacterial respiratory organisms in nasopharyngeal swabs (FRANKFURTER INSPECTOR).Performed By: #### [id number] ####[facility] ([facility])[address], [place] [address]UBWGZRBBJNYTL 3Not detectedNormalNot DetectedUnMercy Health St. Charles HospitalComment on above:Order Comment: Testing methodology is a multiplexed nucleic acid test intended for the simultaneousqualitative detection and differentiation of nucleic acids from multiple viral and bacterial respira tory organisms in nasopharyngeal swabs (FRANKFURTER INSPECTOR).Performed By: #### [id number] ####[facility] ([facility])[address], [place] [address]NCQROTDNFAWPW 4Not detectedNormalNot DetectedUnMercy Health St. Charles HospitalComment on above: Order Comment: Testing methodology is a multiplexed nucleic acid test intended for the simultaneousqualitative detection and differentiation of nucleic acids from multiple viral and bacterial respiratory organisms in nasopharyngeal swabs (FRANKFURTER INSPECTOR).Performed By: #### [id number] ####[facility] ([facility])[address], [place] [address]YIUB SYNCYTIAL VIRUSNot detectedNormalNot DetectedUnMercy Health St. Charles HospitalComment on above:Order Comment: Testing methodology is a multiplexed nucleic acid test intended for the simultaneousqualitative detection and differentiation of nucleic acids from multiple viral and bacterial respiratory organisms in nasopharyngeal swabs (FRANKFURTER INSPECTOR).Performed By: #### [id number] ####[facility] ([facility])[address] [place], [place] [address]ZYUW-OyT-8 (COVID-19) RNA BECKIE+probe Ql (Unsp spec)Not detectedNormalNot DetectedUnMercy Health St. Charles HospitalComment on above:Order Comment: Testing methodology is a multiplexed nucleic acid test intended for the simultaneousqualitative detection and differentiation of nucleic acids from multiple viral and bacterial respiratory organisms in nasopharyngeal swabs (FRANKFURTER INSPECTOR).Performed By: #### [id number] ####[facility] ([facility])[address] [place], [place] [address]TKCNK PNEUMONIAE ANTIGEN, URINEon 02-90-0889HBVTFUTCZBXTU PNEUMONIAE AG PRESENCE IN URINE NegativeNormalNegativeUnMercy Health St. Charles HospitalComment on above: Performed By: #### [id number] ####[facility] ([facility])[address] [place], [place] [address]PSWNNCUZJHRKXan 51-21-0664AZNWWPG?UnknownNormalUniversAdams County HospitalComment on above:Order Comment: Monitor triglycerides while patient is on propofol. Consult Nutrition if greater than 500 mg/dL.Performed By: #### [id number] ####[facility] ([facility])[address] [place] [address] Magnesium [Mass/Vol]95 mg/dLNormal<150UnMercy Health St. Charles HospitalComment on above:Order Comment: Monitor triglycerides while patient is on propofol. Consult Nutrition if greater than 500 mg/dL.Result Comment: TRIGLYCERIDE REFERENCE RANGE:20 YEARS AND OLDER CARDIOVASCULAR RISKLESS THAN 150 mg/dL LOW HVTK253 TO 199 mg/dL BORDERLINE BSLU855 mg/dL AND GREATER HIGH RISKPerformed By: #### [id number] ####[facility] ([facility])[address] [place] [address] URINALYSIS WITH MICROSCOPICon 48-91-1504ZYZXRWLQI, TOTAL PRESENCE IN URINE NegativeNormalNegativeMercy Health Urbana HospitalComment on above: Performed By: #### [id number] ####[facility] ([facility])[address], [place] [address]Jtuvbdx (U)ClearNormalClearUnMercy Health St. Charles HospitalComment on above:Performed By: #### [id number] ####[facility] ([facility])[address], [place] [address]Cfmve (U)YellowNormalColorless, Yellow, Light-YellowMercy Health Urbana HospitalComment on above: Performed By: #### [id number] ####[facility] ([facility])[address], [place] [address]RTRVZRO (MG/DL) IN URINENormalNormalNormalUniCincinnati Children's Hospital Medical CenterComment on above:Performed By: #### [id number] ####[facility] ([facility])[address] [place] [address]OLENSITJCF PRESENCE IN URINEModerateAbnormalNegUniversity Hospitals Samaritan Medical CenterComment on above:Performed By: #### [id number] ####[facility] ([facility])[address] [place] [address]Lhavhet Ql (U)NegativeNormalNegUniversity Hospitals Samaritan Medical CenterComment on above:Performed By: #### [id number] ####[facility] ([facility])[address] [place] [address]GGWBYGJEA ESTERASE PRESENCE IN URINE BY TEST STRIPNegativeNormalNegUniversity Hospitals Samaritan Medical CenterComment on above:Performed By: #### [id number] ####[facility] ([facility])[address], [place] [address]BMXNV (#/LPF) IN URINE SEDIMENTOccasionalNormalNone Seen, Occasional, FewUnMercy Health St. Charles HospitalComment on above:Performed By: #### [id number] ####[facility] ([facility])[address] [place] [address] NITRITE PRESENCE IN URINENegativeNormalNegativeUnMercy Health St. Charles HospitalComment on above:Performed By: #### [id number] ####[facility] ([facility])[address] [address]fG (U)5.5 [pH]Normal5.0-8.0UnMercy Health St. Charles HospitalComment on above:Performed By: #### [id number] ####[facility] ([facility])[address] [place] [address]Nbtpvas (U) [Mass/Vol] NegativeNormalNegativeUnMercy Health St. Charles HospitalComment on above: Performed By: #### [id number] ####[facility] ([facility])[address] [place] [address]TLN (#/HPF) IN URINE NFUXKJSB11-72VxxugavaPtbq Seen, 0-2 [facility]rbana HospitalComment on above:Performed By: #### [id number] ####[facility] ([facility])[address] [place], [place] [address]Jleqacuh gravity (U) [Rel density]>1.297Ooiv6.010-1.030UnMercy Health St. Charles Hospital Comment on above:Performed By: #### [id number] ####[facility] ([facility])[address] [place], [place] [address]ZKZIRLMF EPITHELIAL CELLS (#/LPF) IN URINE SEDIMENT OccasionalNormalNone Seen, Occasional, FewUnMercy Health St. Charles Hospital Comment on above:Performed By: #### [id number] ####[facility] ([facility])[address] [place], [place] [address]FSDOSCBHJBFH (MG/DL) IN URINENormalNormalNormal [facility] HospitalComment on above:Performed By: #### [id number] ####[facility] ([facility])[address] [place], [place] [address]ZZY (LEUKOCYTE) (#/HPF) IN URINE SEDIMENT3-5AbnormalNone Seen, 0-2UnMercy Health St. Charles HospitalComment on above:Performed By: #### [id number] ####[facility] ([facility])[address] [place], [place] [address]Ir Panel Informationon 26-99-6846BRGNSt. Louis Behavioral Medicine InstituteType of biopsy: tangential Informed consent: discussed and [...] Photo taken Amount of lidocaine used: 1.0 [facility] Complete Pulmonary Function Test Pre/Post Bronchodilator (Spirometry Pre/Post/DLCO/Lung Volumes)Ordered By: Pepito Nguyen on 25-16-2781OEI2 - Post 1.07[facility] Work Phone: FEV1 - Pre1.03UnCleveland Clinic [facility] Work Phone: UTM3 - Predicted1.95[facility] Work Phone: FVC - Post1.63[facility] Work Phone: [phone] - PRE1.7[facility] Work Phone: [phone] Predicted2.54[facility] Work Phone: [phone] Work Phone: complete Pulmonary Function Test Pre/Post Bronchodilator (Spirometry Pre/Post/DLCO/Lung Volumes)on 06-71-9637Lir FEV1/FVC (0.60) is reduced. The FEV1 (1.03L/52%) is mildly reduced. The FVC (1.70L/66%) is mildly reduced. Following administration of bronchodilators, there is no significant response. The TLC by body plethysmography is reduced, (62%) suggesting a moderate restrictive defect. The DLCO (66%) ismildly reduced; however, the diffusing capacity was not corrected for the patient's hemoglobin. Theairways resistance is increased. Conclusion: Spirometry is indicative of combined mild to moderate chest restriction/airflow obstruction without significant response to bronchodilator challenge. Lungvolumes by plethysmography indicate a restrictive ventilatory impairment. DLCO values are consistent with incomplete lung expansion or localized loss of lung volume.[facility] Pepito Mccurdy MD - 11/27/2024 The FEV1/FVC (0.60) is reduced. The FEV1 (1.03L/52%) is mildly reduced. The FVC (1.70L/66%) is mildly reduced. Following administration of bronchodilators, there is no significant response. The TLC by body plethysmography is reduced, (62%) suggesting a moderate restrictive defect. The DLCO (66%) ismildly reduced; however, the diffusing capacity was not corrected for the patient's hemoglobin. Theairways resistance is increased. Conclusion: Spirometry is indicative of combined mild to moderate chest restriction/airflow obstruction without significant response to bronchodilator challenge. Lungvolumes by plethysmography indicate a restrictive ventilatory impairment. DLCO values are consistent with incomplete lung expansion or localized loss of lung volume. [facility] Work Phone: [phone],25-dihydroxyvitamin D3 [Mass/Vol]on ,25- dihydroxyvitamin D [Mass/Vol]57.4 pg/fZIkjzug87.9-79.3[facility] Medical CenterComment on above:Result Comment: INTERPRETIVE INFORMATION: Vitamin D, 1,25-Dihydroxy This test is primarily indicated during patient evaluation for hypercalcemia and renal failure. A normal result does not rule out Vitamin D deficiency. The recommended test for diagnosing Vitamin D deficiency is Vitamin D 25-hydroxy. Performed By: [facility] [address] [place] [address] Whittling Room Operator: Ryley Cardenas MD, PhD CLIA Number: [id number] By: #### 1649-3 #### [facility]) ([id number]) [address] [place] [id number] W Auto Differential panel (Bld)on 10-15-2024 Basophils (Bld) [#/Vol]0.04 10*3/uLMemorial Health System [facility] Basophils/100 WBC (Bld)0.5 %0.0 - 2.0 %[facility] Eosinophils (Bld) [#/Vol]0.29 10*3/uLMemorial Health System [facility] Eosinophils/100 WBC (Bld)3.9 %0.0 - 6.0 %[facility] Erythrocyte distribution width (RBC) [Ratio]12.9 %11.5 - 14.5 %[facility] HospitalHematocrit (Bld) [Volume fraction]44.2 %36.0 - 46.0 % [facility] HospitalHemoglobin (Bld) [Mass/Vol]14 g/dL12.0 - 16.0 g/dLUnCleveland Clinic Akron GeneralImdeaconess incarnate word health system granulocytes (Bld) [#/Vol]0.03 10*3/[facility] HospitalImdeaconess incarnate [facility] granulocytes/100 WBC (Bld)0.4 % 0.0 - 0.9 %[facility] HospitalComment on above:Immature Granulocyte Count (IG) includes promyelocytes, myelocytes and metamyelocytes but does not include bands. Percent differential counts (%) should be interpreted in the context of the absolute cell counts (cells/UL).Interpretation and review of laboratory resultsAbnormalUniBlanchard Valley Health SystemLymphocytes (Bld) [#/Vol]1.01 10*3/uLMemorial Health System Selby General HospitalLymphocytes/100 WBC (Bld) 13.5 %13.0 - 44.0 %[facility] HospitalH (RBC) [Entitic mass]29.5 pg26.0 - 34.0 pgUnUpper Valley Medical CenterHC (RBC) [Mass/Vol]31.7 g/dL Low32.0 - 36.0 g/dLUniversity Hospitals of ClevelandMCV (RBC) [Entitic vol]93 fL 80 - 100 fLUniversWashington County Memorial HospitalMonocytes (Bld) [#/Vol]0.77 10*3/uL [facility] HospitalMonocytes/100 WBC (Bld)10.3 %2.0 - 10.0 % [facility] HospitalNeutrophils (Bld) [#/Vol]5.36 10*3/[facility] HospitalComment on above:Percent differential counts (%) should be interpreted in the context of the absolute cell counts (cells/uL). Neutrophils/100 WBC (Bld)71.4 %40.0 - 80.0 %[facility] Nucleated RBC/100 WBC (Bld) [Ratio]0 %[facility] HospitalPlatelets (Bld) [#/Vol]193 10*3/[facility] HospitalRBC (Bld) [#/Vol]4.74 10*6/[facility] HospitalWBC (Bld) [#/Vol]7.5 10*3/[facility] HospitalUnCleveland Clinic Akron GeneralBasophils (Bld) [#/Vol] 0.04 x10*3/uLNormal0.00-0.10[facility] Medical CenterComment on above:Performed By: #### 59962-2 #### LOW SWIFT (69285) [facility] ([facility] [address] [place], [place] [address]Grpfqhkkn/100 WBC (Bld)0.5 %Normal0.0-2.0UnMercy Health Willard HospitalComment on above:Performed By: #### 73083-1 #### LOW SWIFT (63574) [facility] ([facility]) [address] [place], [place] [address]Bbprklxyvrz (Bld) [#/Vol]0.29 x10*3/uLNormal0.00-0.40 [facility] CenterComment on above:Performed By: #### 19779-9 #### LOW SWIFT (81419) [facility] ([facility]) [address] [place], [place] [address]Ulbixihucai/100 WBC (Bld)3.9 %Normal0.0-6.0UnMercy Health Willard HospitalComment on above:Performed By: #### 48099-0 #### LOW SWIFT (81892) [facility] ([facility]) [address] [place], [place] [address]Vivyeorirkk distribution width (RBC) [Ratio]12.9 %Normal 11.5-14.5UnMercy Health Willard HospitalComment on above:Performed By: #### 87200-4 #### LOW SWIFT (54576) [facility] ([facility]) [address] [place], [place] [address]Vqyirigbem (Bld) [Volume fraction]44.2 %Asjwjl11.0-46.0 [facility] CenterComment on above:Performed By: #### 62495-5 #### LOW SWIFT (99545) [facility] ([facility]) [address] [place] [address]Imenvnqmsf (Bld) [Mass/Vol]14.0 g/rHJhgsyq48.0-16.0UnMercy Health Willard HospitalComment on above:Performed By: #### 49084-2 #### LOW SWIFT (11358) [facility] ([facility]) [address] [place] [address]Wrelddpw granulocytes (Bld) [#/Vol]0.03 x10*3/uLNormal 0.00-0.50UnMercy Health Willard HospitalComment on above:Performed By: #### 81177-8 #### LOW SWIFT (49741) [facility] ([facility]) [address] [place], [place] [address]Mlnesape granulocytes/100 WBC (Bld)0.4 %Normal0.0-0.9 [facility] Medical CenterComment on above:Result Comment: Immature Granulocyte Count (IG) includes promyelocytes, myelocytes and metamyelocytes but does not include bands. Percent differential counts (%) should be interpreted in the context of the absolute cell counts (cells/UL). Performed By: #### 82667-8 #### LOW SWIFT (13696) [facility] ([facility]) [address] [place], [place] [address]Wusogedofuy (Bld) [#/Vol]1.01 x10*3/uLNormal0.80-3.00 [facility] CenterComment on above:Performed By: #### 31308-2 #### LOW SWIFT (26568) [facility] ([facility]) [address] [place], [place] [address]Zyhjrbeourn/100 WBC (Bld)13.5 %Rbclta08.0-44.0UnMercy Health Willard HospitalComment on above:Performed By: #### 47383-0 #### LOW SWIFT (54065) [facility] ([facility]) [address] [place], [place] [address]DBA (RBC) [Entitic mass]29.5 zhUgqqai25.0-34.0UnMercy Health Willard HospitalComment on above:Performed By: #### 24812-1 #### LOW SWIFT (88121) [facility] ([facility]) [address] [place], [place] [address]DVPT (RBC) [Mass/Vol]31.7 g/dLLow32.0-36.0UnMercy Health Willard HospitalComment on above:Performed By: #### 88026-3 #### LOW SWIFT (10024) [facility] ([facility]) [address] [place], [place] [address]EKL (RBC) [Entitic vol]93 nFXixfck49-523WgqxjucxclMercy Health Willard HospitalComment on above:Performed By: #### 72747-6 #### LOW SWIFT (44193) [facility] ([facility]) [address] [place], [place] [address]Ekzificad (Bld) [#/Vol]0.77 x10*3/uLNormal0.05-0.80UnMercy Health Willard HospitalComment on above:Performed By: #### 21850-3 #### LOW SWIFT (69105) [facility] ([facility]) [address] [place] [address]Zgqdpzjsi/100 WBC (Bld)10.3 %Normal2.0-10.0UnMercy Health Willard HospitalComment on above:Performed By: #### 44968-5 #### LOW SWIFT (46842) [facility] ([facility]) [address] [place] [address]Cdeydaagseh (Bld) [#/Vol]5.36 x10*3/uLNormal1.60-5.50 [facility] CenterComment on above:Result Comment: Percent differential counts (%) should be interpreted in the context of the absolute cell counts (cells/uL).Performed By: #### 69393-6 #### LOW SWIFT (86756) [facility] ([facility]) [address] [place] [address]Kpnlkimqque/100 WBC (Bld)71.4 %Udlmpd71.0-80.0UnMercy Health Willard HospitalComment on above:Performed By: #### 51528-4 #### LOW SWIFT (45446) [facility] ([facility]) [address] [place] [address]Szuhwwziq RBC/100 WBC (Bld) [Ratio]0.0 /100 WBCsNormal0.0-0.0 [facility] CenterComment on above:Performed By: #### 34623-7 #### LOW SWIFT (50513) [facility] ([facility]) [address] [place] [address]Oggtfnckd (Bld) [#/Vol]193 x10*3/pYFfqlhc952-429TkmmbfdirvMercy Health Willard HospitalComment on above:Performed By: #### 54499-0 #### LOW SWIFT (03143) [facility] ([facility]) [address] [place], [place] [address]HYM (Bld) [#/Vol]4.74 x10*6/uLNormal4.00-5.20UnMercy Health Willard HospitalComment on above:Performed By: #### 28711-1 #### LOW SWIFT (35578) [facility] ([facility]) [address] [place], [place] [address]WLI (Bld) [#/Vol]7.5 x10*3/uLNormal4.4-11.3UnMercy Health Willard HospitalComment on above:Performed By: #### 83559-2 #### LOW SWIFT (07166) [facility] ([facility]) [address] [place], [place] [address]Uzazikpwsrbhn metabolic 2000 panelon 59-19-4965Rkfhpbu BCP dye [Mass/Vol]4 g/dL3.4 - 5.0 g/dLUnCleveland Clinic Akron GeneralALP [Catalytic activity/Vol]49 U/L33 - 136 U/[facility]aritan HospitalALT With P-5'-P [Catalytic activity/Vol]11 U/L7 - 45 U/[facility]itan HospitalComment on above:Patients treated with Sulfasalazine may generate falsely decreased results for ALT.Anion gap [Moles/Vol]12 mmol/L10 - 20 mmol/Samaritan HospitalAST With P-5'-P [Catalytic activity/Vol]14 U/L9 - 39 U/[facility]itan HospitalBilirubin [Mass/Vol]1.5 mg/dLHigh0.0 - 1.2 mg/dLUnCleveland Clinic Akron GeneralCalcium [Mass/Vol]9.7 mg/dL8.6 - 10.3 mg/dLUnCleveland Clinic Akron GeneralChloride [Moles/Vol]106 mmol/L98 - 107 mmol/[facility]itan HospitalCO2 [Moles/Vol]28 mmol/L21 - 32 mmol/[facility]itan HospitalCreatinine [Mass/Vol]1.09 mg/dLHigh0.50 - 1.05 mg/dLUnCleveland Clinic Akron GeneralGFR/1.73 sq M.predicted among non-blacks MDRD (S/P/Bld) [Vol rate/Area]52 mL/min/{1.73_m2}Low- PINFUniBlanchard Valley Health System Comment on above:Calculations of estimated GFR are performed using the 2020 CKD- EPI Study Refit equation without therace variable for the IDMS-Traceable creatinine methods. https://jasn.asnjournals.org/content/early/ASN.3930944119 Glucose [Mass/Vol]81 mg/dL74 - 99 mg/dLUnCleveland Clinic [facility]ron General Interpretation and review of laboratory resultsAbnoalUBlanchard Valley Health System Bluffton HospitalPotassium [Moles/Vol]4.3 mmol/L3.5 - 5.3 mmol/[facility]itan HospitalProtein [Mass/Vol]5.8 g/dLLow6.4 - 8.2 g/dLUnCleveland Clinic Akron GeneralSodium [Moles/Vol]142 mmol/L136 - 145 mmol/[facility]itan HospitalUrea nitrogen [Mass/Vol]17 mg/dL6 - 23 mg/dLUnCleveland Clinic Akron GeneralUnCleveland Clinic Akron GeneralAlbumin BCP dye [Mass/Vol]4.0 g/dL Normal3.4-5.0UnMercy Health Willard HospitalComment on above: Performed By: #### 26057-8 #### LOW SWIFT (75750) [facility] ([facility] [address] [place], [place] [address]PGW [Catalytic activity/Vol]49 U/HJmaoqi58-779VcovesqebrMercy Health Willard HospitalComment on above:Performed By: #### 01147-9 #### LOW SWIFT (16060) [facility] ([facility]) [address] [place], [place] [address]NJS With P-5'-P [Catalytic activity/Vol]11 U/LNormal7-45 [facility] CenterComment on above:Result Comment: Patients treated with Sulfasalazine may generate falsely decreased results for ALT.Performed By: #### 14750-1 #### LOW SWIFT (82856) [facility] ([facility]) [address] [place], [place] [address]Mpzgc gap [Moles/Vol]12 mmol/TNmxbba08-92WcaqqwobdlUniversity Hospitals Lake West Medical CenterComment on above:Performed By: #### 74234-4 #### LOW SWIFT (94380) [facility] ([facility]) [address] [place], [place] [address]JGI With P-5'-P [Catalytic activity/Vol]14 U/LNormal9-39 [facility] CenterComment on above:Performed By: #### 81775-2 #### LOW SWIFT ([id number]) [facility] ([facility] [address] [place], [place] [address]Zfsikwxxy [Mass/Vol]1.5 mg/dLHigh0.0-1.2[facility] Medical CenterComment on above:Performed By: #### 56578-3 #### LOW SWIFT (32772) [facility] ([facility] [address] [place], [place] [address]Ffugsin [Mass/Vol]9.7 mg/dLNormal8.6-10.3[facility] CenterComment on above:Performed By: #### 79640-8 #### LOW SWIFT (40173) [facility] ([facility] [address] [place], [place] [address]Lbwxxdqn [Moles/Vol]106 mmol/VLceprh46-625XqchfjjgorMercy Health Willard HospitalComment on above:Performed By: #### 72844-1 #### LOW SWIFT (23848) [facility] ([facility] [address] [place], [place] [address]UM4 [Moles/Vol]28 mmol/YAzipsu64-06CaodkzaneoUniversity Hospitals Lake West Medical CenterComment on above:Performed By: #### 18823-2 #### LOW SWIFT (63924) [facility] ([facility]) [address] [place], [place] [address]Pucrxwtbbx [Mass/Vol]1.09 mg/dLHigh0.50-1.05UnMercy Health Willard HospitalComment on above:Performed By: #### 58110-9 #### LOW SWIFT (09374) [facility] ([facility]) [address] [place], [place] [address]Wlyoaobrlx filtration rate/1.73 sq M.nbntqwqud02 mL/min/1.73m*2Low>60UnMercy Health Willard HospitalComment on above:Result Comment: Calculations of estimated GFR are performed using the 2020 CKD-EPI Study Refit equation without the race variable for the IDMS-Traceable creatinine methods. https://jasn.asnjournals.org/content/early//ASN.4213574317Pvcncttnp By: #### 12386-1 #### LOW SWIFT (08059) [facility] ([facility] [address] [place], [place] [address]Ezujuva [Mass/Vol]81 mg/jSJswdyn88-15VvdiukovpyMercy Health Willard HospitalComment on above:Performed By: #### 83808-4 #### LOW SWIFT (23659) [facility] ([facility]) [address] [place] [address]Ladswejrd [Moles/Vol]4.3 mmol/LNormal3.5-5.3UnMercy Health Willard HospitalComment on above:Performed By: #### 63826-9 #### LOW SWIFT (99658) [facility] ([facility]) [address] [place] [address]Aiecrvv [Mass/Vol]5.8 g/dLLow6.4-8.2UnMercy Health Willard HospitalComment on above:Performed By: #### 37218-1 #### LOW SWIFT (73897) [facility] ([facility] [address] [place], [place] [address]Vdrmzy [Moles/Vol]142 mmol/PVkoifm093-489IpecmgyrqaMercy Health Willard HospitalComment on above:Performed By: #### 10959-4 #### LOW SWIFT (25655) [facility] ([facility]) [address] [place], [place] [address]Rtfy nitrogen [Mass/Vol]17 mg/dLNormal-[facility] CenterComment on above:Performed By: #### 24020-3 #### LOW SWIFT (68104) [facility] ([facility]) [address] [place], [place] [address]GYU 12 Leadon 71-09-2459Wbkvhr sinus rhythm, normal EKG. compared to the EKG from January 2023, inferior T wave abnormality has resolvedCPCincinnati VA Medical Center Work Phone: No Panel Informationon 29-77-9896CJVH [facility] Estimated glomerular filtration rate (GFR) non- Americanon 07-04-2024 GFR/1.73 sq M.predicted among non-blacks MDRD (S/P/Bld) [Vol rate/Area]46 mL/min/{1.73_m2}Low>=60[facility] CenterLaboratory - Chemistry and Chemistry - challengeon 43-67-2393Dxisfynmvs [Mass/Vol]1.14 mg/dLHigh 0.55-1.02[facility]'S Medical CenterGFR/1.73 sq M.predicted MDRD (S/P/Bld) [Vol rate/Area]56 mL/min/{1.73_m2}Low>=60[facility] Medical CenterBody fluid differential cell countOrdered By: Dayanna Moncada on 33-29-6945Gahnwmxcpksq panel (Body fld)44 %[facility] Medical CenterComment on above:The reference interval and other method performance specifications have not been established for this body fluid. The test result must be integrated into the clinical context for interpretation.Cell Count/Diff, Fluidon 01-22-2024 Appearance, FluidHazyNormalBarney Children'S Medical CenterComment on above: Order Comment: Body Fluid Source: Other (Name in the Site) Body Fluid Site: RMLResult Comment: The reference interval and other method performance specifications have not been established for this body fluid. The test result must be integrated into the clinical context for interpretation.Performed By: #### FLCCDIFF #### [facility] [address] [place], [place] [address] USAOrder Comment: Body Fluid Source: Other (Name in the Site) Body Fluid Site: RulCsaint john's health system, FluidSParkview Health Comment on above:Order Comment: Body Fluid Source: Other (Name in the Site) Body Fluid Site: RMLResult Comment: The reference interval and other method performance specifications have not been established for this body fluid. The test result must be integrated into the clinical context for interpretation.Performed By: #### FLCCDIFF #### [place] [address] USAOrder Comment: Body Fluid Source: Other (Name in the Site) Body Fluid Site: RulColor, Fluid SupernatantSParkview HealthComment on above:Order Comment: Body Fluid Source: Other (Name in the Site) Body Fluid Site: RMLResult Comment: The reference interval and other method performance specifications have not been established for this body fluid. The test result must be integrated into the clinical context for interpretation.Performed By: #### FLCCDIFF #### [place] [address] USAOrder Comment: Body Fluid Source: Other (Name in the Site) Body Fluid Site: RulEosinophils, Fluid2 /100{WBC}Normal0-3FProMedica Defiance Regional HospitalComment on above:Order Comment: Body Fluid Source: Other (Name in the Site) Body Fluid Site: RMLResult Comment: PERFORMED BY: [place] [address] PATHOLOGIST STAGING TECHNICIAN CRISTHIAN REYEZ M.D.Performed By: #### FLCCDIFF #### [place] [address] USAOrder Comment: Body Fluid Source: Other (Name in the Site) Body Fluid Site: RulLymphocytes, Fluid13 %NormalBarney Children'S Medical CenterComment on above:Order Comment: Body Fluid Source: Other (Name in the Site) Body Fluid Site: RMLResult Comment: The reference interval and other method performance specifications have not been established for this body fluid. The test result must be integrated into the clinical context for interpretation.Performed By: #### FLCCDIFF #### [address] [address] USALymphocytes, Fluid11 %[facility] SpringfieldComment on above:Order Comment: Body Fluid Source: Other (Name in the Site) Body Fluid Site: RulResult Comment: The reference interval and other method performance specifications have not been established for this body fluid. The test result must be integrated into the clinical context for interpretation.Performed By: #### FLCCDIFF #### [address] [address] USAMonocytes/Macrophages, Fluid44 %[facility] SpringfieldComment on above:Order Comment: Body Fluid Source: Other (Name in the Site) Body Fluid Site: RMLResult Comment: The reference interval and other method performance specifications have not been established for this body fluid. The test result must be integrated into the clinical context for interpretation.Performed By: #### FLCCDIFF #### [address] [address] USAMonocytes/Macrophages, Fluid45 %[facility] SpringfieldComment on above:Order Comment: Body Fluid Source: Other (Name in the Site) Body Fluid Site: RulResult Comment: The reference interval and other method performance specifications have not been established for this body fluid. The test result must be integrated into the clinical context for interpretation.Performed By: #### FLCCDIFF #### [address] [address] USANeutrophil, Fluid41 %[facility] SpringfieldComment on above:Order Comment: Body Fluid Source: Other (Name in the Site) Body Fluid Site: RMLResult Comment: The reference interval and other method performance specifications have not been established for this body fluid. The test result must be integrated into the clinical context for interpretation.Performed By: #### FLCCDIFF #### [address] [address] USANeutrophil, Fluid42 %[facility] SpringfieldComment on above:Order Comment: Body Fluid Source: Other (Name in the Site) Body Fluid Site: RulResult Comment: The reference interval and other method performance specifications have not been established for this body fluid. The test result must be integrated into the clinical context for interpretation.Performed By: #### FLCCDIFF #### [address] [address] USARBC, Jjadv1615OufnixNsyotakfbKettering Health Springfield Comment on above:Order Comment: Body Fluid Source: Other (Name in the Site) Body Fluid Site: [facility] Comment: The reference interval and other method performance specifications have not been established for this body fluid. The test result must be integrated into the clinical context for interpretation.Performed By: #### FLCCDIFF #### [address] [address] USARB, Odysw9860IoqhboUtjbwmhtaKettering Health Springfield Comment on above:Order Comment: Body Fluid Source: Other (Name in the Site) Body Fluid Site: [facility] Comment: The reference interval and other method performance specifications have not been established for this body fluid. The test result must be integrated into the clinical context for interpretation.Performed By: #### FLCCDIFF #### [address] [address] USATNC, Body Wqeti224IrntrgJzdaifwcpKettering Health Springfield Comment on above:Order Comment: Body Fluid Source: Other (Name in the Site) Body Fluid Site: [facility] Comment: The reference interval and other method performance specifications have not been established for this body fluid. The test result must be integrated into the clinical context for interpretation.Performed By: #### FLCCDIFF #### [address] [address] USATNC, Body Goaws583BylpmfMgqxklneoKettering Health Springfield Comment on above:Order Comment: Body Fluid Source: Other (Name in the Site) Body Fluid Site: [facility] Comment: The reference interval and other method performance specifications have not been established for this body fluid. The test result must be integrated into the clinical context for interpretation.Performed By: #### FLCCDIFF #### [address] [address] USACells Counted Total [#] in Body fluidOrdered By: Dayanna Moncada on 79-26-9195Ibihi Counted Total (Body fld) [#]163 mm^[address] [place], [place] [address]Comment on above:The reference interval and other method performance specifications have not been established for this body fluid. The test result must be integrated into the clinical context for interpretation. Color of Spun Body fluidOrdered By: Dayanna Moncada on 58-26-9901Rrmkg (Spun body fld)[facility] HospitalComment on above:The reference interval and other method performance specifications have not been established for this body fluid. The test result must be integrated into the clinical context for interpretation.Determination of appearance of body fluidOrdered By: Dayanna Moncada on 34-88-9520Pljnxumkde (Body fld)[facility] HospitalComment on above:The reference interval and other method performance specifications have not been established for this body fluid. The test result must be integrated into the clinical context for interpretation.Erythrocytes [#/volume] in Body fluid by Automated countOrdered By: Dayanna Moncada on 87-21-2902MSZ Auto (Body fld) [#/Vol]2329 mm^[address] [place] [address] Comment on above:The reference interval and other method performance specifications have not been established for this body fluid. The test result must be integrated into the clinical context for interpretation.Evaluation of color of body fluidOrdered By: Dayanna Moncada on 61-83-0804Xwpye (Body fld)[facility] City HospitalComment on above:The reference interval and other method performance specifications have not been established for this body fluid. The test result must be integrated into the clinical context for interpretation.Alex 22-93-3230BIvlzwobf: BC Received: 01/23/24 Status: CLAUDIA Carter Num: [id number] Spec Type: Cytology Subm Dr: Dayanna Moncada DO Tissues: A BRONWASH (BRONCH) B BRONWASH (R UPPER LOBE) C BRONWASH (R MIDDLE LOBE) Procedures: HE/6, Gross/Micro L4/3, Cyto Prepstain/3, PAPSTN/3 Age/ Patient Sex Location Account Attending Physician Pilo Gregory 78/F [facility] [id number] Dayanna Moncada DO SPEC NUM: [id number] RECD: 01/23/24 STATUS: CLAUDIA GIRMMQ NUM: [id number] MARK: 01/22/24- SUBM DR: Dayanna Moncada DO ENTERED: 01/23/24-[address]: Elisabeth Zarate SPEC TYPE: Cytology DEPT: JASON GALLAGHERYT ENTERED BY: [id number] RECV BY: [id number] ORDERED: HE/6, Gross/Micro L4/3, Cyto Prepstain/3, PAPSTN/3 [...] (CC/nh) Specimen: [id number] Received: 01/23/24 Status: CLAUDIA q Num: [id number] Spec Type: Cytology Subm Dr: Dayanna Moncada DO Tissues: A BRONWASH (BRONCH) B BRONWASH (R UPPER LOBE) C BRONWASH (R MIDDLE LOBE) Procedures: HE/6, Gross/Micro L4/3, Cyto Prepstain/3, PAPSTN/3 Patient: Pilo Gregory [id number] (Continued) Specimen: [id number] Received: 01/23/24 (Continued) Gross Description (Continued) Signed (signature on file) Nitesh Chambers MD 01/24/24 1406 Specimen: BC Received: 01/23/24 Status: CLAUDIA Carter Num: [id number] Spec Type: Cytology Subm Dr: Dayanna Moncada DO Tissues: A BRONWASH (BRONCH) B BRONWASH (R UPPER LOBE) C BRONWASH (R MIDDLE LOBE) Procedures: HE/6, Gross/Micro L4/3, Cyto Prepstain/3, PAPSTN/3 Patient: ArshPilo chavez [id number] (Continued) Specimen: [id number] Received: 01/23/24 (Continued) Gross Description (Continued) C. Received fresh labeled with the patient's name, date of and R upper lobe lavage is 5 ml rico cloudy unfixed fluid. 1 Thin Prep slides are prepared. 1 cell blocks are prepared. (CC/nh) Specimen: BC Received: 01/23/24 Status: CLAUDIA Carter Num: [id number] Spec Type: Cytology Subm Dr: Dayanna Moncada DO Tissues: A BRONWASH (BRONCH) B BRONWASH (R UPPER LOBE) C BRONWASH (R MIDDLE LOBE) Procedures: HE/6, Gross/Micro L4/3, Cyto Prepstain/3, PAPSTN/3 Patient: Pilo Gregory [id number] ([facility]) Signed (signature on file) Nitesh Chambers MD 01/24/24 1406NoFirelands Regional Medical CenterManual body fluid eosinophils/100 leukocytesOrdered By: Dayanna Moncada on 66-09-7651Ikezyjyznsn/100 WBC Manual cnt (Body fld)2 /100{WBC}0-3FKettering Health Hamilton body fluid lymphocytes/100 leukocytesOrdered By: Dayanna Moncada on 01-22-2024 Lymphocytes/100 WBC Manual cnt (Body fld)13 %[facility] Comment on above:The reference interval and other method performance specifications have not been established for this body fluid. The test result must be integrated into the clinical context for interpretation.Neutrophils/100 WBC Manual cnt (Body fld)Ordered By: Dayanna Moncada on 55-26-2283Lqlqdwdvkrv/100 WBC (Body fld)41 %[facility] Medical CenterComment on above:The reference interval and other method performance specifications have not been established for this body fluid. The test result must be integrated into the clinical context for interpretation.A. flavus Ab Immune diff Ql (S)on 01-01-2024 Aspergillus flavus AntibodyNegativeNeg:<1:1FProMedica Defiance Regional HospitalA. niger IgE Qn (S)on 38-91-3106Oycpjgkwuzb niger AntibodyNegativeNeg:<1:1FProMedica Defiance Regional HospitalComment on above:Performed at: [address] [id number] Director: Skylar Ortega MD, Phone: [phone] at: [address] [id number] Director: Skylar Ortega MD, Phone: [phone] Adenosine monophosphate.cyclic [Moles/Vol]on 29-96-5361Maysiq Citrullinated Peptid IgG/IgA0 units0-19[facility]S Medical CenterComment on above: Negative <20 Weak positive 20 - 39 Moderate positive 40 - 59 Strong positive >59Performed at:[address] [id number] Director: García Salcedo PhD, Phone: [phone] <20 Weak positive 20 - 39 Moderate positive 40 - 59 Strong positive >59Performed at:[address] [id number] Director: García Salcedo PhD, Phone: [phone] perinuclear antineutrophil cytoplasmic antibodies measurementon 84-26-4463Okganakrje cytoplasmic Ab.perinuclear.atypical IF (S) [Titer]<1:20 titerNeg:<1:20[facility]S Medical CenterComment on above: Serum is slightly hemolyzedThe atypical pANCA pattern has been observed in asignificant percentage of patients with ulcerative colitis,primary sclerosing cholangitis and autoimmune hepatitis.Performed at: [address] [id number] Director: Skylar Ortega MD, Phone: [phone] at: [address] [id number] Director: García Salcedo PhD, Phone: [phone] free [Mass/Vol]on 37-51-5921Qkxo-Nuclear Antibody ProfileNegativeNegativeBarney Children'S Medical CenterComment on above:Performed at: [address] [id number] Director: García Salcedo PhD, Phone: [phone] at: [address] [id number] Director: García Salcedo PhD, Phone: [phone] at: [address] [id number] Director: García Salcedo PhD, Phone: [phone] at: [address] [id number] Director: García Salcedo PhD, Phone: [phone] H. capsulatum Ab CF Ql (S)on 91-84-7037Ncgzkzjppai Mycelial Ab (Comp Fix) NegativeNeg:<1:2FProMedica Defiance Regional HospitalHistoplasma Yeast Ab (Comp Fix) NegativeNeg:<1:2FProMedica Defiance Regional HospitalComment on above:Performed at: [address] [id number] Director: Skylar Ortega MD, Phone: [phone] at: [address] [id number] Director: Skylar Ortega MD, Phone: [phone] at: [address] [id number] Director: Skylar Ortega MD, Phone: [phone] - Hematology and Cell countson 01-31-3680HDI (Bld) [Velocity]25 mm/h<=30[facility]S Medical CenterMyeloperoxidase Ab [Units/volume] in Serum by Immunoassay on 20-01-2245Vhwujodgzyczorh Ab IA Qn (S)<0.2 units0.0-0.9[facility] Medical CenterNo Panel Informationon 48-40-2975Faibdpzedpz Galactomannan Antigen Negative<0.5 ng/mLBarney Children'S Medical CenterComment on above:This test was developed and its performance characteristicsdetermined by [employer]. It has not been cleared orapproved by the Food and Drug Administration.Performed at: [facility] ShowEvidence[address] [place] [address], [place] [id number] Director: Lori Green MD, Phone: [phone] fumigatus Antibody NegativeNeg:<1:1FProMedica Defiance Regional HospitalBlastomyces dermatitidis AntibodyNegativeNeg:<1:1FProMedica Defiance Regional HospitalComment on above: Performed at: - [facility] [id number] Director: Skylar Ortega MD, Phone: [phone]-Crmcsynp Protein, Quantitative1.37 mg/dL<=0.50[facility]S Medical CenterPerinuclear ANCA (p-ANCA) Antibody<1:20 titerNeg:<1:20[facility] Medical CenterComment on above:Serum is slightly hemolyzedThe presence of positive fluorescence exhibiting P-ANCA orC-ANCA patterns alone is not specific for the diagnosis ofWegener's Granulomatosis (WG) or microscopic polyangiitis.Decisions about treatment should not be based solely onANCA IFA results. The International ANCA Group Consensusrecommends follow up testing of positive sera with both MI-3 and MPO-ANCA enzyme immunoassays. As many as 5% serumsamples are positive only by EIA. Ref. AM J Clin Scimra3978;111:507-513.Proteinase 3 Ab [Units/volume] in Serum by Immunoassayon 58-99-7713Olxazpgyff 3 Ab IA Qn (S)<0.2 units0.0-0.9 [facility] SystemCL-70 extractable nuclear Ab IA Qn (S)on 83-74-2795Mfe-70 (Scleroderma) Antibody<0.2 AI0.0-0.9[facility] Health Systemerum angiotensin converting enzyme (MOJGAN) measurementon 01-01-2024 Angiotensin converting enzyme [Catalytic activity/Vol]63 U/A22-88JxpqynzptBarney Children'S Medical CenterComment on above:Performed at: - [address] [place], [place] [id number] Director: García Salcedo PhD, Phone: [phone] classic neutrophil cytoplasmic antibody titer by immunofluorescenceon 15-25-7565Vzuwyljqui cytoplasmic Ab.classic IF (S) [Titer] <1:20 titerNeg:<1:20[facility]S Medical CenterComment on above:Serum is slightly hemolyzedSerum or plasma rheumatoid factor measurement (units/volume)on 78-65-8070Pwekznbsaa factor Qn10.3 [IU]/mL<14.0Bar[facility] Children[facility]S Medical CenterComment on above:Performed at: - [facility] [id number] Director: García Salcedo PhD, Phone: [phone] CARDIAC SCORINGon 97-87-1073XR CARDIAC SCORINGAddendum Begins Patient Name: PILO GREGORY ADDENDUM: NON-CARDIOVASCULAR [...] STRUCTURES ARE THE SOLE RESPONSIBILITY OF THE ESTIMATOR JEWELRY SUBMITTING THE ORIGINAL REPORT (NOT THIS ADDENDUM) Electronically signed by: SUKHJINDER MOONEY MD Addendum Ends Patient Name: PILO GREGORY STUDY: CT CARDIAC SCORING; 03/24/2023 10:58 am INDICATION: htn, hyperlipedmia E78.5: Hyperlipidemia R07.89: Chest tightness. COMPARISON: None. ACCESSION NUMBER(S): [id number] ORDERING CLINICIAN: KATHLEEN CASTRO TECHNIQUE: Using prospective [...] increased >800 Shyanne et al. JCCT 2016 (http://dx.doi.org/10.1016/j.jcct.2016.11.003) LINK Percentile In general, greater than 75th [...] Calcification can be calcuate using link below https://www.link-nhlbi.org/MESACHDRisk/MesaRiskScore/RiskScore.aspx Kirsten olvera al. JACC 2015 (http://dx.doi.org/10.1016/j.j acc.2015.08.035) Reading Tapper Bit: Dr. Valerio Morris, Date: 03/24/2023 11:23 am Electronically signed by: SUKHJINDER MOONEY MDPenn State Health Rehabilitation Hospital CT Cardiac Scoringon 34-56-7123YM Cardiac ScoringNormal-[facility] [address]aina [address] DO Work Phone: Tobacco Screening.on 60-76-5121Ujwmkcm use status CPHS b) NoMP-[facility]-Clinch 250 DO Work Phone: NOH CARDIAC STRESS/REST INJECTIONon 67-55-3769YMR CARDIAC STRESS/REST INJECTIONMRN: [id number] Patient Name: PILO GREGORY STUDY: MYOCARDIAL PERFUSION STRESS TEST WITH EXERCISE CONVERTED TO LEXISCAN Performing facility: [facility], [address], [address], [place] [address] [facility] Provider: Kathleen Castro MD, [facility] PCP: Dr. Ellis Tomlin Supervising provider: Patti Auguste MD, [facility] INDICATION: Dyspnea Chest tightness HISTORY: Gender: F; Age: 77 y/o ; Height: 0 cm; Weight: 0 kg. Chest Pain; High Cholesterol; SOB; Denies smoking. COMPARISON: No comparison. ACCESSION NUMBER(S): [id number]; [id number]; [id number] ORDERING CLINICIAN: KATHLEEN CASTRO TECHNIQUE: ONE DAY [...] for comparison. Electronically signed by: PATTI AUGUSTE MDPenn State Health Rehabilitation HospitalNo Panel Informationon 63-92-0098TbrsqyFXRegional Medical Center of [facility]-Naina [address] DO Work Phone: LIPID PROFILEon 86-42-3091USWZ-HDL RATIO NORMSEE BELOW NormalThe [facility] on above:Result Comment: 3.3 - 4.4 LOW RISK 4.4 - 7.1 AVERAGE RISK 7.1 - 11.0 MODERATE RISK >11.0 HIGH RISKPerformed By: #### LIPID #### [facility] [address] [address] [address] Krystle CamiloCholesterol [Mass/Vol]211 mg/dLCritically high<=200[facility] on above:Performed By: #### LIPID #### [facility] [address] [place] [address] Dr. Krystle CamiloCholesterol in HDL [Mass/Vol]52 mg/jOEhuyzf15-41Ltc [facility] on above:Performed By: #### LIPID #### [facility] [address] [address] [address] Krystle CamiloCholesterol in LDL [Mass/Vol]143.0 mg/dLNoFairfield Medical Center on above:Performed By: #### LIPID #### [facility] [address] [place] [address] Dr. Krystle Joineresterscott.total/Cholesterol in HDL [Mass ratio]4.1 {ratio} NormalThe [facility] on above:Performed By: #### LIPID #### [facility] [address] [address] Dr. Krystle Alston NORMAL> or = 60 mg/dl - LOW CARDIOVASCULAR RISK <40 mg/dl - HIGH CARDIOVASCULAR RISKBarnesville HospitalComment on above:Performed By: #### LIPID #### [facility] [address] [address] [address] Krystle CamiloLDL CALC NORMALSEE BELOWNoMorrow County HospitalComment on above:Result Comment: <100 mg/dl OPTIMAL 100 - 129 mg/dl NEAR OR ABOVE OPTIMAL 130 - 159 mg/dl BORDERLINE HIGH 160 - 189 mg/dl HIGH >190 mg/dl VERY HIGH Performed By: #### LIPID #### [facility] [address] [address] [address] Krystle CamiloTriglyceride [Mass/Vol]80 mg/dLNormal<=150[facility] Comment on above:Performed By: #### LIPID #### [facility] [address] [address] [address] Krystle ElamLDL CALC16.0 mg/dLNoMorrow County HospitalComment on above: Performed By: #### LIPID #### [facility] [address] [place] [address] Dr. Krystle Dove Visit (Cardiology)on 76-66-9581Azzmak-up visit Diagnoses/Problems Assessed Patient new to provider [...] Order; Status:Hold For - Scheduling,Retrospective Authorization; Requested for:[id number]; Radiologist to Determine Optimal Study : Y What are the patient's signs and symptoms? : dyspnea chest tightness Chest tightness, Dyspnea, Hyperlipidemia Lipid Panel; Status:Active - Retrospective Authorization; Requested for:[id number]; Class 1 obesity with body mass index (BMI) of 30.0 to 30.9 in adult Healthy Weight Tips; Status:Complete - Retrospective Authorization; Done: 51Ksg8873 Some eating tips that can help you lose weight.; Status:Complete - Retrospective Authorization; Done: 16Ywq5142 Dyspnea IO EKG Electrocardiogram- 12 Lead; Status:Complete; Done: [id number] SocHx: Never a smoker Tobacco Use Screening; Status:Complete; Done: 62Flg7190 Tobacco Use Screening; Status:Complete; Done: 06Abb8913 Patient Instructions Please bring all medicines, vitamins, [...] times, but not consistently, and 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 Also reviewed echocardiogram that was done on 01/16/2023 at [facility]. Assessment: 1. 77-year-old with exertional shortness [...] atrialdiameter was reported to be 3.6 cm. 6. EKG abnormalities, new compared to a previous EKG from December 2022. 7. History of lower extremity edema although I did not appreciate any today 8. Abnormalities on CT of the chest, small nodules, possibly consistent with long hist (more content not included)...NormalUH TouchworksTobacco Screening.on 32-89-4870Lymko depression screening assessmentNoShriners Hospital for Children [employer] 250 DO Work Phone: Fall risk assessmenta) No falls within the last year [facility] [employer] 250 DO Work Phone: Tobacco use status CPHSb) [facility] 250 DO Work Phone: ECHOCARDIO M/2D COMPLETEon 63-70-9577BMQEDHBVLP M/2D COMPLETEPatient: PILO GREGORY Exam Date: 01/16/2023 : 1945 Gender:F Ordering : DR ALEXANDER TOMLIN M.D. Admission #: [id number] Family : Order #: [id number] CLICK HERE TO VIEW EXAM ECHOCARDIOGRAM REPORT [...] by: Alfred Stern M.D. on 01/16/2023 at 14:53Barnesville HospitalB-Type Natriuretic Peptideon 07-46-7720F-Type Natriuretic Peptidesee noteNort [employer] Other [phone]-Naic Natriuretic Wkvhzxt244.0 pg/ml<=1,800.0 pg/ml [place] [employer] Other BNPon 68-62-3218Sphynwqhmez peptide B (Bld) [Mass/Vol] 582.0 pg/mLNormal<=1,800.0The [facility] HospitalComment on above:Performed By: #### BNP, BMP #### [facility] [address] [place] [address] Dr. Krystle Jerome AUTO DIFFon 67-97-1315RWVE #0.0 103/ulNormal0.0-0.1The [facility] HospitalComment on above:Performed By: #### CBC #### [facility] [address] [place] [address] Dr. Krystle CamiloBasophils/100 WBC (Bld)0.7 %Normal0.2-2.0The [facility] Comment on above:Performed By: #### CBC #### [facility] [address] [place] [address] Dr. Krystle Richards #0.4 103/ulNormal0.0-0.7The [facility] HospitalComment on above: Performed By: #### CBC #### [facility] [address] [place] [address] Dr. Krystle Gandhiosinophils/100 WBC (Bld)5.7 %Normal0.9-7.0The [facility] Comment on above:Performed By: #### CBC #### [facility] [address] [place] [address] Dr. Krystle Gandhirythrocyte distribution width (RBC) [Ratio]12.9 %Nstwhz96.0-15.0 The [facility] HospitalComment on above:Performed By: #### CBC #### [facility] [address] [place] [address] Dr. Krystle Grimesatocrit (Bld) [Volume fraction]44.3 %Axnknl43.0-48.0The [facility] HospitalComment on above:Performed By: #### CBC #### [facility] [address] [place] [address] Dr. Krystle CamiloHemoglobin (Bld) [Mass/Vol]15.0 g/iJHkkzkc61.0-16.0The [facility] HospitalComment on above:Performed By: #### CBC #### [facility] [address] [place] [address] Dr. Krystle Rasheed #0.02 10e3/ulNormal0.00-0.03The [facility] HospitalComment on above:Performed By: #### CBC #### [facility] [address] [place] [address] Dr. Krystle Rasheed %0.3 %Normal0.0-0.5The [facility] HospitalComment on above: Performed By: #### CBC #### [facility] [address] [place] [address] Dr. Krystle Avilez #1.1 103/ulCritically low1.2-3.8The [facility] Comment on above:Performed By: #### CBC #### [facility] [address] [place] [address] Dr. Krystle Galiciahocytes/100 WBC (Bld)18.1 %Critically low20.5-60.0The [facility] HospitalComment on above:Performed By: #### CBC #### [facility] [address] [place] [address] Dr. Krystle Lindsey DIFF REQNONormalThe [facility] HospitalComment on above: Performed By: #### CBC #### [facility] [address] [place] [address] Dr. Krystle Blue (RBC) [Entitic mass]30.9 klJglvda22.7-34.0The [facility] HospitalComment on above:Performed By: #### CBC #### [facility] [address] [place] [address] Dr. Krystle Blue (RBC) [Mass/Vol]33.9 g/dTXdrcdj29.9-35.2The [facility] HospitalComment on above:Performed By: #### CBC #### [facility] [address] [place] [address] Dr. Krystle Blue (RBC) [Entitic vol]91.3 uAKqrkyp35.0-99.0The [facility] HospitalComment on above:Performed By: #### CBC #### [facility] [address] [place] [address] Dr. Krystle Lorenzo #0.7 103/ulNormal0.3-0.8The [facility] HospitalComment on above:Performed By: #### CBC #### [facility] [address] [place] [address] Dr. Krystle Huocytes/100 WBC (Bld)11.7 %Normal1.7-12.0The [facility] Comment on above:Performed By: #### CBC #### [facility] [address] [place] [address] Dr. Krystle Wolff #3.9 103/ulNormal1.4-6.5The [facility] HospitalComment on above:Performed By: #### CBC #### [facility] [address] [place] [address] Dr. Krystle Alexandreutrophils/100 WBC (Bld)63.5 %Thxesd55.0-75.0The [facility] HospitalComment on above:Performed By: #### CBC #### [facility] [address] [place] [address] Dr. Krystle Zepedalet mean volume (Bld) [Entitic vol]8.8 fLCritically low 9.5-13.5The [facility] HospitalComment on above:Performed By: #### CBC #### [facility] [address] [place] [address] Dr. Krystle CamiloPLT232 103/zaZcnqbh324-728Joy [facility] HospitalComment on above: Performed By: #### CBC #### [facility] [address] [place] [address] Dr. Krystle CamiloRBC4.85 106/ulNormal4.20-5.40The [facility] HospitalComment on above:Performed By: #### CBC #### [facility] [address] [place] [address] Dr. Krystle CamiloWBC6.1 103/ulNormal4.0-11.0The [facility] HospitalComment on above: Performed By: #### CBC #### [facility] [address] [place] [address] Dr. Krystle CamiloPROF CHEM 8 (BAS METB)on 19-47-1613[place] gap [Moles/Vol]11.6 mmol/LNormalThe [facility] HospitalComment on above:Performed By: #### BNP, BMP #### [facility] [address] [address] [address] Krystle CamiloCalcium [Mass/Vol]9.5 mg/dLNormal8.5-10.1The [facility] Comment on above:Performed By: #### BNP, BMP #### [facility] [address] [address] [address] Krystle CamiloChloride [Moles/Vol]110 mmol/LCritically tcby26-399Pzz [facility] HospitalComment on above:Performed By: #### BNP, BMP #### [facility] [address] [place] [address] Dr. Krystle CamiloCO2 [Moles/Vol]29.7 mmol/BJsodqg14.0-32.0The [facility] Comment on above:Performed By: #### BNP, BMP #### [facility] [address] [place] [address] Dr. Krystle CamiloCreatinine [Mass/Vol]1.11 mg/dLCritically high0.55-1.02The [facility] HospitalComment on above:Performed By: #### BNP, BMP #### [facility] [address] [place] [address] Dr. Krystle GandhiGFR-AF ZFYDQOOV46 mL/min/1.34a4Sqemnbdyvx low>=60The [facility] HospitalComment on above:Performed By: #### BNP, BMP #### [facility] [address] [place] [address] Dr. Krystle GandhiGFR-NON AF WMBHMJYA84 mL/min/1.48a1Yaqdmoicms low>=60The [facility] HospitalComment on above:Performed By: #### BNP, BMP #### [facility] [address] [place] [address] Dr. Krystle CamiloGlucose [Mass/Vol]77 mg/eSIcoagt21-705HjrTrihealth [facility] Comment on above:Performed By: #### BNP, BMP #### [facility] [address] [place] [address] Dr. Krystle CamiloPotassium [Moles/Vol]4.3 mmol/LNormal3.5-5.1The [facility] Comment on above:Performed By: #### BNP, BMP #### [facility] [address], [place] [address] Dr. Krystle CamiloSodium [Moles/Vol]147 mmol/LCritically wwot811-735Amt [facility] HospitalComment on above:Performed By: #### BNP, BMP #### [facility] [address] [place], [place] [address] Dr. Krystle CamiloUrea nitrogen [Mass/Vol]16.0 mg/dLNormal7.0-18.0The [facility] HospitalComment on above:Performed By: #### BNP, BMP #### [facility] [address] [place], [place] [address] Dr. Krystle CamiloUrea nitrogen/Creatinine [Mass ratio]14.4 mg/mgNormalThe [facility] HospitalComment on above:Performed By: #### BNP, BMP #### [facility] [address] [address] [address] Krystle CamiloCT CHEST WO CONon 21-00-3846RX CHEST WO CONEXAMINATION: CT CHEST WO CON HISTORY: Lung field abnormal , [...] Electronically authenticated by: BARBARA MIRANDA Date: 2022-11-03 15:55Barnesville HospitalMG MAMM SCREEN 3D ITALIA CADon 82-48-6528WU MAMM SCREEN 3D ITALIA CAD Patient: PILO GREGORY Exam Date: 11/03/2022 : 1945 Gender:F Ordering : DR ALEXANDER TOMLIN M.D. Admission #: [id number] Family : Order #: [id number] CLICK HERE TO VIEW EXAM RADIOLOGY REPORT [...] cancer at age 59. LOCATION: [facility] BREAST COMPOSITION: Scattered areas fibroglandular density. [...] by: Barbara Miranda MD on 11/03/2022 at 15:57Barnesville HospitalCT CHEST WO CONon 27-85-7956ZW CHEST WO CONEXAMINATION: CT CHEST WO CON HISTORY: Lung field abnormal COMPARISON: [...] authenticated by: ROBER CHÁVEZ Date: 2022-03-10 10:[address] [place] [address] Vital Signs Date TimeVital SignValuePerforming LivwxgdftVtdquofh15-47-0915 13:07-0400Body gqfhie808.66 cmAlexander Tomlin MD Work Phone: [phone]10-21-2025 13:07-0400 Body mass index (BMI) [Ratio]28.8 kg/t6ZhowbtAlexander Tomlin MD Work Phone: [phone]10-21-2025 13:07-0400 Body pbswiv53.38 kgAlexander Tomlin MD Work Phone: [phone]10-21-2025 13:07-0400 Diastolic blood fwvfnvxe01 mm[Hg]Alexander Tomlin MD Work Phone: [phone]10-21-2025 13:07-0400 Heart rate68 /minAlexander Tomlin MD Work Phone: [phone]10-21-2025 13:07-0400 Systolic blood rayiknlx674 mm[Hg]Alexander Tomlin MD Work Phone: [phone]09-09-2025 10:34-0400 Body .66 cmAlexander Tomlin MD Work Phone: [phone])[address] [place], [place] 3370509-09-2025 10:34-0400 Body mass index (BMI) [Ratio]28.3 kg/q7UygaqiAlexander Tomlin MD Work Phone: [phone] [place], [place] 3370509-09-2025 10:34-0400 Body czbodr80.02 kgAlexander Tomlin MD Work Phone: [phone] [place], [place] 3370509-09-2025 10:34-0400 Diastolic blood mzmxfsve78 mm[Hg]Alexander Tomlin MD Work Phone: [phone])[address] [place], [place] 3370509-09-2025 10:34-0400 Heart rate65 /Shelly Tomlin MD Work Phone: [phone] [place], [place] 3370509-09-2025 10:34-0400 Systolic blood mm[Hg]Alexander Tomlin MD Work Phone: [phone])[address] [place], [place] 3370506-17-2025 10:34-0400 Body vzlofz069.66 cmAlexander Tomlin MD Work Phone: [phone])[address] [place], [place] 3370506-17-2025 10:34-0400 Body mass index (BMI) [Ratio]27.2 kg/w9GqnubxAlexander Tomlin MD Work Phone: [phone])[address] [place], [place] 3370506-17-2025 10:34-0400 Body irvauo56.3 kgAlexander Tomlin MD Work Phone: [phone])[address] [place], [place] 3370506-17-2025 10:34-0400 Diastolic blood esyotwkx05 mm[Hg]Alexander Tomlin MD Work Phone: [phone])[address] [place], [place] 3370506-17-2025 10:34-0400 Heart rate75 /Shelly Tomlin MD Work Phone: [phone] [place], [place] 3370506-17-2025 10:34-0400 SaO2% (BldA) [Mass fraction]97 %Alexander Tomlin MD Work Phone: [facility]06-17-2025 10:34-0400 Systolic blood babvxxic638 mm[Hg]Alexander Tomlin MD Work Phone: [facility]02-24-2025 12:40-0500 Body cexkfx600.3 cmKathleen Castro MD Work Phone: [phone]02-24-2025 12:40-0500 Body mass index (BMI) [Ratio]28.39 kg/q7TuqdzmKathleen Castro MD Work Phone: [phone]02-24-2025 12:40-0500 Body duwdpm56.85 kgKathleen Castro MD Work Phone: [phone])[address]02-24-2025 12:40-0500 Diastolic blood tkiulgya47 mm[Hg]Kathleen Castro MD Work Phone: [phone])[address]02-24-2025 12:40-0500 Heart rate62 /minKathleen Castro MD Work Phone: [phone])[address]02-24-2025 12:40-0500 Systolic blood scgoeadv142 mm[Hg]Kathleen Castro MD Work Phone: [phone]12-17-2024 09:21-0500 Body puwzej580.3 cmCathy Benitez TIMBER HE[employer]ER[employer]MANUGRAPHER Work Phone: [facility]12-17-2024 09:21-0500 Body mass index (BMI) [Ratio]28.6 kg/e4IgbossmCathy Benitez [employer] Work Phone: [facility]12-17-2024 09:21-0500 Body oafcrbxbtdp99.7 [degF]Cathy Benitez [employer] HE[employer]MANU[employer]APHER Work Phone: [facility]12-17-2024 09:21-0500 Body .39 kgJessica Eli [employer]MANU[employer]APHER Work Phone: [facility]12-17-2024 09:21-0500 Diastolic blood qgypzhvs64 mm[Hg]Cathy Edouardlly TIMBER HEWER[employer]MANUGRAPHER Work Phone: [facility]12-17-2024 09:21-0500 Heart rate67 /minJessica Eli TIMBER HEWER[employer]MANUGRAPHER Work Phone: [facility]12-17-2024 09:21-0500 Respiratory rate16 /minArmenssica Eli [employer] HE[employer]ER[employer]MANUGRAPHER Work Phone: [facility]12-17-2024 09:21-0500 SaO2% (BldA) [Mass fraction]95 %Cathy Eli [employer] Work Phone: [facility]12-17-2024 09:21-0500 Systolic blood oylklqpn143 mm[Hg]Cathy Benitez TIM[employer] HE[employer]MANU[employer]HER Work Phone: [facility]11-11-2024 14:27-0500 Body rmimgd731.3 cmKathleen Castro MD Work Phone: [phone] [place], [place] 4908411-11-2024 14:27-0500 Body mass index (BMI) [Ratio]28.77 kg/q8JbsniiKathleen Castro MD Work Phone: [phone] [place], [place] 4908411-11-2024 14:27-0500 Body xoowqk32.84 kgKathleen Castro MD Work Phone: [phone])966-[address] [place], [place] 4908411-11-2024 14:27-0500 Diastolic blood khkwqxuh99 mm[Hg]Kathleen Castro MD Work Phone: [phone])607-[address] [place], [place] 4908411-11-2024 14:27-0500 Heart rate74 /minKathleen Castro MD Work Phone: [phone] [place], [place] 4908411-11-2024 14:27-0500 Systolic blood mm[Hg]Kathleen Castro MD Work Phone: [facility]10-04-2024 10:50-0400 Body wdzbha090.66 cmBar[facility]10-04-2024 10:50-0400Body mass index (BMI) [Ratio]28.9 kg/n9YlmnjibiwBarney Children'S Medical Center10-04-2024 10:50-0400Body iaelnv12.61 kgBarney Children'S Medical Center10-04-2024 10:50-0400Diastolic blood bgoeilix00 mm[Hg][facility] 08-02-2024 10:50-0400Heart rate70 /[facility] 08-02-2024 10:50-0400Respiratory rate16 /[facility] 08-02-2024 10:50-4728JvL2% (BldA) [Mass fraction]96 %[facility]10-04-2024 10:50-0400Systolic blood bjbexmxu463 mm[Hg][facility]03-01-2024 11:03-0500Body dhatua350.56 cmMD Alexander Tomlin Work Phone: [facility]03-01-2024 11:03-0500 Body mass index (BMI) [Ratio]28 kg/m2MD Alexander Tomlin Work Phone: [facility]03-01-2024 11:03-0500 Body nyfekg79.16 kgMD Alexander Tomlin Work Phone: [facility]03-01-2024 11:03-0500 Diastolic blood wgmjesne42 mm[Hg]MD Alexander Tomlin Work Phone: [facility]03-01-2024 11:03-0500 Heart rate94 /minMD Alexander Tomlin Work Phone: [facility]03-01-2024 11:03-0500 Systolic blood ypyfpmbt834 mm[Hg]MD Alexander Tomlin Work Phone: [facility]06-09-2023 13:30-0400 Body mkopyl076.56 cmAlexander Tomlin Other [place] [employer] Other 06-09-2023 13:30-0400Body mass index (BMI) [Ratio] 29.69 kg/q5TxaeqmAlexander Tomlin Other [place] [employer] Other 06-09-2023 13:30-0400Body .47 kgAlexander Tomlin Other [place] [employer] Other 06-09-2023 13:30-0400Diastolic blood uilzdwmo27 mm[Hg] Alexander Tomlin Other [place] [employer] Other 06-09-2023 13:30-0400Systolic blood rxsnyufa390 mm[Hg] Alexander Tomlin Other [place] [employer] Other 05-22-2023 16:02-0400Diastolic blood tpzspteu69 mm[Hg] Alexander Tomlin Work Phone: [phone]-Tluqc [place] [employer] 250 DO Work Phone: 1(196) 791-904305-22-2023 16:02-0400Diastolic blood monvtbfx90 mm[Hg] Alexander Tomlin Work Phone: mp332-5150QN-Jxxqu [place] [employer] 250 DO Work Phone: 1(995) 744-397305-22-2023 16:02-0400Systolic blood jpeqiqvx312 mm[Hg] Alexander Tomlin Work Phone: 1(730) [phone]-Pxltq [place] [employer] 250 DO Work Phone: 1(353) 457-999305-22-2023 15:32-0400Body vwjpge928.02 cmAlexander Tomlin Work Phone: mp234-5719HT-Bwcwf [place] [employer] 250 DO Work Phone: 1(729) 415-248505-22-2023 15:32-0400Body mass index (BMI) [Ratio] 30.47 kg/i3CkjuzpAlexander Tomlin Work Phone: mp538-0455FU-Nieln [place] [facility] 250 DO Work Phone: 1(268) 495-759905-22-2023 15:32-0400Body surface area Derived from formula1.81 a9UvurzqAlexander Tomlin Work Phone: mp615-2145TL-Kjpic [place] [facility] 250 DO Work Phone: 1(389) 994-171305-22-2023 15:32-0400Body ftqols68.02 kgAlexander Tomlin Work Phone: [phone]) [phone]-Zuijd [place] [facility] 250 DO Work Phone: 1(289) 830-892705-22-2023 15:32-0400Diastolic blood brgovvxo99 mm[Hg] Alexander Tomlin Work Phone: mp210-6495AS-Lvttz [place] [facility] 250 DO Work Phone: 1(681) 411-466905-22-2023 15:32-0400Heart rate74 /minAlexander Tomlin Work Phone: 1(414) [phone]-Vbjdb [place] [facility] 250 DO Work Phone: 1(472) 483-315805-22-2023 15:32-0400Systolic blood mm[Hg] Alexander Tomlin Work Phone: mp103-1279BK-Aasbt [place] [facility] 250 DO Work Phone: 1(719) 900-213605-01-2023 14:478024315 1Mlay Tomlin Work Phone: mp076-5440VN-Ywmdd [place] [facility] 250 DO Work Phone: Comment on above:WXDHA50-41-5509 09:36-0400Diastolic blood lmohizco83 mm[Hg]Alexander Tomlin Work Phone: mp321-5023DR-Tdjfs [place] [facility] 250 DO Work Phone: 1(703) 433-235104-17-2023 09:36-0400Systolic blood xkuhoibg765 mm[Hg] Alexander Tomlin Work Phone: mp231-6678CY-Tkxkg [place] [facility] 250 DO Work Phone: 1(118) 745-229204-17-2023 09:35-0400Body .02 cmAlexander Tomlin Work Phone: mp541-6069ZZ-Qgpug [place] [employer] 250 DO Work Phone: 1(382) 328-590904-17-2023 09:35-0400Body mass index (BMI) [Ratio] 30.65 kg/y8GoazkzAlexander Tomlin Work Phone: mp970-9759GQ-Ynerc [place] [facility] 250 DO Work Phone: 1(730) 595-191304-17-2023 09:35-0400Body surface area Derived from formula1.82 x0LdoealAlexander Tomlin Work Phone: mp604-8835OC-Gmerv [place] [employer] 250 DO Work Phone: 1(498) 467-160404-17-2023 09:35-0400Body .47 kgAlexander Tomlin Work Phone: 1(606) [phone]-Aabor [place] [employer] 250 DO Work Phone: 1(044)342-570-502469-83466491-07-2329 09:35-0400Diastolic blood iqrabblr34 mm[Hg] Alexander Tomlin Work Phone: 1(201) [phone]-Aubvi [place] [facility] 250 DO Work Phone: 1(718) 640-378804-17-2023 09:35-0400Heart rate63 /minAlexander Tomlin Work Phone: 1(732) [phone]-Erijw [place] [facility] 250 DO Work Phone: 1(148) 244-266804-17-2023 09:35-0400Systolic blood gwoyarol478 mm[Hg] Alexander Tomlin Work Phone: 1(974) [phone]-Tinji [place] [employer] 250 DO Work Phone: 1(251) 767-781703-06-2023 09:30-0500Body qtbihe144.56 cmAlexander Tomlin Other [email or web address] Other 03-06-2023 09:30-0500Body mass index (BMI) [Ratio] 29.52 kg/a3RkvrtuAlexander Tomlin Other [email or web address] Other 03-06-2023 09:30-0500Body brqxil57.02 kgAlexander Tomlin Other [email or web address] Other 03-06-2023 09:30-0500Diastolic blood btifcsvd01 mm[Hg] Alexander [facility]lin Other [facility] Other 03-06-2023 09:30-0370RvO0% (BldA) [Mass fraction]98 % Alexander Tomlin Other [email or web address] Other 03-06-2023 09:30-0500Systolic blood egdnwstl492 mm[Hg] Alexander Tomlin Other [email or web address] Other Encounters Encounter DateEncounter TypeCare ProviderFacilityStart: 08-19-2025 End: 31-67-0746edoqauweemXhzrzu E Braun MD Work Phone: [facility]2025 End: 64-00-4708Iwgrxmf encounter procedureAlexander Tomlin MD-[facility] Work Phone: Start: 08-05-2025 End: 45-44-6666rrsghdnqgcORHVMercy Health [facility] Hospitaltart: 07-08-2025 End: 33-15-0419nwztisnhdcMypfkc E Braun MD Work Phone: [facility] Work Phone: Start: 07-08-2025 End: 02-70-7680Rnwycaz encounter procedureAlexander Tomlin MD-[facility] Work Phone: Start: 07-07-2025 End: 64-43-4274vcijrrqxveDMK CHUSelect Medical [facility] Hospitaltart: 05-27-2025 End: 42-79-6823yyrzxeqxllSIQWFort Hamilton Hospitaltart: 46-35-2892Qqv-patient / Non-visitGeorge Jarred SHARMA-[facility] Work Phone: Start: 05-19-2025 End: 53-26-4580uocusiqhmwEDGR NOORICincinnati Shriners Hospitaltart: 05-19-2025 End: 73-32-9207sgjxjvynxyHXIDRT MOUKARBELMercy Health Urbana Hospital Start: 83-68-5512Kae-patient / Non-visitAdam Vaishali FRIEDMAN-[facility] Work Phone: Start: 04-24-2025 End: 24-63-4715Ktmahz flowsheetChoco Landaverde MD Work Phone: noms SWS DERMStart: 04-24-2025 End: 30-31-1309Mcjekm flowsheetEmestrella Landaverde MD Work Phone: noms SWS DERMStart: 04-24-2025 End: 43-74-6120rxfakequswRBRCV Quique EDWARDSINot AvailableStart: 04-24-2025 End: 67-74-7196Eoafis outpatient visit 10 minutesEmestrella Landaverde MD Work Phone: noms [facility] DERMComment on above:Seborrheic keratosis (Primary Dx); Actinic keratosisStart: 04-15-2025 End: 29-54-5296Lenvxdl encounter procedureAlexander Tomlin MD-[facility] Work Phone: Start: 47-63-1090Rgl-patient / Non-visitCatherine Chuckie GIANG-[facility] Work Phone: Start: 03-26-2025 End: 46-40-3823yijotmdrguFQLN SNHolzer Hospitaltart: 70-72-9664Rshzdxkijw and management of inpatientDELROY Li [facility]tart: 38-89-1189Zfnnbaxavu and management of inpatient KAYLENE [facility], Inctart: 52-99-3236Nlwyxwkmwb and management of inpatientGEORGE [facility]Ad[facility] Start: 34-65-4094Fhoupwwfsj and management of inpatientSWVUMedicine Harrison Community Hospitaltart: 83-59-7305Gkfletffyp and management of inpatient CHRISTOPHER [facility] Andersontart: 40-69-8864Uxkdezjowr and management of inpatientSNewark Hospital Start: 63-21-1256Njhmijzvav and management of inpatientSWVUMedicine Harrison Community Hospitaltart: 03-12-2025 End: 46-68-3219Hcwnismccy and management of inpatientDARYL Guillermo [facility]tart: 03-12-2025 End: 03-91-7806banuubrdezGEXSQUF PROVIDERFacility:METROHealthStart: 01-30-2025 End: 70-60-3547Xlndhx flowsLucas Landaverde MD Work Phone: noms [facility] DERMStart: 01-30-2025 End: 12-23-4359Amhjvz flowsheetEmestrella Landaverde MD Work Phone: noms [facility] DERMStart: 01-30-2025 End: 02-83-2451Wdelou outpatient visit 15 minutesEmestrella Landaverde MD Work Phone: noms [facility] DERMComment on above:Seborrheic keratosis (Primary Dx); Xerosis cutis; Lentigines; Actinic keratosis; Neoplasm of unspecified behavior of bone, soft tissue, and skin; Capillary angioma; Sebaceous hyperplasia of face; Seborrheic keratosis, inflamed; Personal history of other malignant neoplasm of skinStart: 01-30-2025 End: 49-46-7355slpsclvclyOUIDK A PETITTINot AvailableStart: 12-23-2024 End: 73-87-0839Exbajo outpatient visit 15 minutesKathleen Castro MD Work Phone: uh FirelandsComment on above:CRLD (chronic restrictive lung disease) (Primary Dx); SOTO (dyspnea on exertion); Stage 3a chronic kidney disease (Multi); Never smoked cigarettes; Mixed hyperlipidemia; Body mass index (BMI) 28.0-28.9, adultStart: 12-23-2024 End: 47-17-0012yhgapdhhuxEBQKIOSouth Georgia Medical Center [facility]ier AmbulatoryStart: 12-10-2024 End: 96-37-2515Msjzod outpatient visit 15 minutesJames Mo DO Work Phone: uh [facility] CenterComment on above:Sarcoidosis (Primary Dx)Start: 12-10-2024 End: 55-86-0671yezanoydpaZTSPCEE G [facility] AmbulatoryStart: 11-26-2024 End: 57-10-3016vufeyamtlfCDTUTSQ Hector [facility] Daytontart: 11-26-2024 End: 87-28-5453Kqugcigfhu hospital visit by physicianEly Respther1 Pft [address] Miller StreetComment on above:SarcoidStart: 10-15-2024 End: 10-05-8246Lqjhkq consultation new/estab patient 61 Yasmany Young Eli TIMBER HEWER-MANUGRAPHER Work Phone: [facility] Elizabeth HospitalComment on above:Sarcoid (Primary Dx); Shortness of breathStart: 10-15-2024 End: 37-86-6199bkzebyjzsdTNHNUJMagruder Memorial Hospitaltart: 09-09-2024 End: 55-72-6566Vlihiu outpatient visit 25 minutesKathleen Castro MD Work Phone: uh [facility]idant Medical CenterComment on above:SOTO (dyspnea on exertion); Mixed hyperlipidemia; Never smoked cigarettes; Body mass index (BMI) 28.0-28.9, adult; CRLD (chronic restrictive lung disease); Personal history of COVID-19; Stage 3a chronic kidney disease (Multi)Start: 09-09-2024 End: 43-42-5251ylenntfomhDIRBKBSouth [facility] AmbulatoryStart: 09-05-2024 End: 07-13-6135Wlazfj jovanniheetChoco Landaverde MD Work Phone: NOMS SWS DERMStart: 09-05-2024 End: 70-60-6582Nvgwrw flowsheetEmestrella Landaverde MD Work Phone: noms SWS DERMStart: 09-05-2024 End: 77-34-3341Gfdcri outpatient visit 25 minutesEmestrella Landaverde MD Work Phone: noms SWS DERMComment on above:Other atopic dermatitis (Primary Dx); Bug bite without infection, initial encounter; Actinic keratosisStart: 09-05-2024 End: 43-80-3226tcezbgkwhySRRAQ A PETITTINot AvailableStart: 75-88-3945Jauxpyv encounter procedureAlexander Tomlin MD Work Phone: [facility] Systemtart: 08-02-2024 End: 43-59-8395cibrulxncuHztbedstoGreen Cross Hospital Work Phone: Start: 08-02-2024 End: 59-13-9738Czcyzsv encounter procedureFormerly [facility] Physician [facility] Work Phone: Start: 51-78-4003Nhl-patient / Non-visitFormerly [facility] Physician [facility] Work Phone: Start: 01-22-2024 End: 11-97-6272navywhzkbtDvzkmr Samsa - TBHFacility:[facility] Systemtart: 01-22-2024 End: 81-76-6559isizcfocsfCT Marcia E Braun Work Phone: [facility] Work Phone: Start: 01-22-2024 End: 81-69-0186Qvhfdwvx ReferredMD Alexander Tomlin Work Phone: [facility]-LAB Path Spec [facility] HospStart: 04-16-3160Pco-patient / Non-visitMD Alexander Tomlin Work Phone: [facility] Physician [facility] Work Phone: Start: 12-29-2023 End: 57-85-6793Bfjexya encounter procedureMD Alexander Tomlin Work Phone: [place] [facility] Work Phone: Start: 04-07-2023 End: 78-89-0079ujydprhcmdYsvyxv Braun Other [facility] [employer] Other Start: 55-02-4622Xqugbib encounter procedureAlexander NaborMercy Health Tiffin Hospitaltart: 28-48-0683Aajrv UpdateAlexander Tomlin Work Phone: [phone]-Mjjqa [facility] [facility] DO Work Phone: Start: 35-73-0513Aiwqe UpdateAlexander Tomlin Work Phone: [phone]-Hnygk [facility] [facility] DO Work Phone: Start: 02-14-7345johalegfwuShubje Hxrf6kGctetypj:9573 Start: 73-18-2658Uucwx UpdateAlexander Tomlin Work Phone: [phone]-Dvohe [facility] [address] DO Work Phone: Start: 53-08-6120zqbrqrscyzUpmbaw Jjwk2yZmllksvv:9844 Start: 02-27-2023 End: 00-91-4935ptevrmpzswVKIYHT MISCFacility:G7Mssne: 02-14-2023 End: 91-14-5835nihwanvdmlKdpscb Braun Other [place] [employer] Other Start: 99-55-6994Ebseztclq encounterAlexander [facility] Peninsula Hospitaltart: 86-25-3929Dpieqe consultation new/estab patient 60 min Alexander Tomlin Work Phone: [phone]-Axpum [facility] [address] DO Work Phone: Start: 62-06-8727cgazkrlckqET GEETHA MOHAN Facility:[id number]: 84-54-6482uzfigjsvkhAuMarie TomlinFacility:[facility] Start: 01-17-2023 End: 61-42-3864ebygebqhraKrtjcb Tomlin Other [employer] Other Start: 28-16-8224Cznambccp encounterAlexander Condon [facility]ertart: 01-16-2023 End: 09-29-7592rbtjfbhnsiTZ MARCIA E NABORFacility:B4Eciyx: 01-05-2023 End: 73-88-0768owetqjminrYnbaft Tomlin Other [facility] [employer] Other Start: 27-68-7950Epudllxpd encounterAlexander Condon [facility] Centertart: 01-04-2023 End: 62-10-7212tmvuturgcgMU MARCIA E NABORFacility:E8Mciuj: 01-02-2023 End: 42-87-4705bdttwbehodVkfxmp Tomlin Other [facility] [employer] Other Start: 89-76-7791Qleamm outpatient visit 15 minutes Alexander TomlinAvila [facility] Centertart: 11-03-2022 End: 58-75-7511adhnsnoedxCPGXDW SAMSA .Facility:V3Qdkrc: 03-10-2022 End: 06-07-0384nlyvverzfvPSPYRP SAMSA .Facility:R8Qiacm: 10-17-2018 End: 72-91-6506Jcamggy encounter procedureEMDANIELA YINMercy Health St. Charles Hospitalveland Procedures DateProcedureProcedure DetailPerforming ClinicianStart: 99-74-8988Lqdzkt-up visitCALEB SPENCERStart: 85-72-6051Uolijw-up visitCALEB SPENCERStart: 04-24-2025 CRYOTHERAPY SKIN LESIONEmestrella Landaverde MD Work Phone: Start: 97-37-6790Wfsojq-up visitCALEB SPENCERStart: 01-95-9532LMLG / NAIL BIOPSYEmestrella Landaverde MD Work Phone: Start: 01-30-2025 End: 66-80-6493ARFKFVKXROQ SKIN LESIONEmestrella Landaverde MD Work Phone: Start: 30-34-1742Empotwyalhw/nonpressurized inhalation treatmentCathy Benitez TIMBER HEWER-MANUGRAPHER Work Phone: Start: 75-12-3394Vsl routine ecg w/least 12 lds w/i&r Kathleen Castro MD Work Phone: Start: 05-68-5623TMRXUXWQBHZ SKIN LESIONEmestrella Landaverde MD Work Phone: appendectomyMarcia E Tomlin Work Phone: Cesarean sectionMarcia E Tomlin Work Phone: ColonoscopyMarcia E Tomlin Work Phone: Tonsillectomy and adenoidectomyMarcia E Tomlin Work Phone: Plan of Treatment DateCare ActivityDetailAuthorStart: 01-29-2026 End: 33-20-1022Lyrmgxu encounter sdrtugpxe66/02/2026 9:00 AM EDT Office Visit [facility] [address] [place] [address] Choco Landaverde MD [address] [place] [address] [facility] DERMStart: 19-35-2769Dzxzcdzhp vaccination Influenza Vaccine (Season Ended)[facility] HealthcareStart: 01-30-2025 End: 21-33-4136Hyehitx encounter vdktsuleh19/03/2025 11:30 AM EDT Office Visit [facility] [address] [place] [address] Choco Landaverde MD [address] [place] [address] ArrivedNOMS [facility] DERMComment on above:ArrivedStart: 12-24-2024 End: 41-00-4435BV ChestCT chest high resolution Imaging Routine Sarcoidosis Expected: 12/24/2024, Expires: 12/10/2025[facility] Service Area Work Phone: Comment on above:Expected: 12/24/2024, Expires: 12/10/2025Start: 12-23-2024 End: 23-37-4863Kdgvywd encounter /24/2025 12:30 PM EST Office Visit [facility] [address] [facility] [address] [place] [address] Kathleen Castro MD [address] [facility] [address] [place], [place] [id number] [facility] HealthStart: 12-10-2024 End: 65-96-8480Skrgbcpksryt consultation with vrmcrdp0012/10/2024 8:40 AM EST Telemedicine [address] [place] [phone] [place] [address] [place] [address] [facility] CampusStart: 11-28-2024 End: 79-53-3263Wexayfk encounter /30/2025 1:30 PM EST Office Visit [facility] [address] [place] [address] Choco Landaverde MD [address] [place] [address] N[facility]S SWS DERMStart: 11-25-2024 End: 71-27-2103Ozpslyk encounter fozlhagjw02/27/2025 11:20 AM EST Office Visit [address], [place] [address] [place] [address] [address] [place], [place] [address] [facility] CampusStart: 10-15-2024 End: 89-11-8022Ivummfdggt [Mass/volume] in Serum or PlasmaMemorial Health System [facility]by [facility] Work Phone: Comment on above:Expected: 10/15/2024 (Approximate), Expires: 10/15/2025Start: 10-15-2024 End: 90-60-7956Rfdsmgoq Pulmonary Function Test Pre/Post Bronchodilator (Spirometry Pre/Post/DLCO/Lung Volumes)Complete Pulmonary Function Test Pre/Post Bronchodilator (Spirometry Pre/Post/DLCO/Lung Volumes) PFT Routine Sarcoid Expected: 10/15/2024 (Approximate), Expires: 10/15/2025[facility] Work Phone: Comment on above:Expected: 10/15/2024 (Approximate), Expires: 10/15/2025Start: 09-09-2024 End: 61-51-3963Vbjtcvtnbnb sedimentation rateSedimentation Rate Lab Routine SOTO (dyspnea on exertion) CRLD (chronic restrictive lung disease) Expected: 09/09/2024 (Approximate), Expires: 09/09/2025UnCleveland Clinic [facility]ron General Work Phone: Comment on above:Expected: 09/09/2024 (Approximate), Expires: 09/09/2025Start: 09-09-2024 End: 30-98-3009Fbtddguexpk peptide B [Mass/volume] in BloodB-Type Natriuretic Peptide Lab Routine SOTO (dyspnea on exertion) Expected: 09/09/2024 (Approximate), Expires: 09/09/2025[facility] Work Phone: Comment on above:Expected: 09/09/2024 (Approximate), Expires: 09/09/2025Start: 09-05-2024 End: 95-69-7710Kpwtgsw encounter /07/2024 9:20 AM EST Office Visit [facility] [address] [place] [address] Choco Landaverde MD [address] [place] [address] ArrivedNOMS SWS DERMComment on above:ArrivedStart: 94-55-7668ZFTHI-19 Vaccine ( season)COVID-19 Vaccine ( season)[facility]: 57-96-5598ABWLE-19 Vaccine ( season)COVID-19 Vaccine ( season)[facility]: 82-83-9852Pwixkfeyj vaccinationInfluenza Vaccine (#1)[facility]: 62-36-9301MJU, Provider: Kathleen Castro, Status: Pen, Time: 3:30 PMFUV, Provider: Kathleen Castro, Status: Pen, Time: 3:30 PMMP-[facility] [employer]foodj[employer]y 250 DO Work Phone: Start: 57-87-9631BHAAHJ NUC, Provider: [place] HHVI NUCLEAR 01,[id number], Status: Pen, Time: 8:00 AMSTRESS NUC, Provider: [place] HHVI NUCLEAR 01,[id number], Status: Pen, Time: 8:00 AMMP-[facility] foodjunky 250 DO Work Phone: Start: 63-55-8108PCK High Risk: (Elderly (60+) or Population) (1 - 1-dose 75+ series)RSV High Risk: (Elderly (60+) or Population) (1 - 1-dose 75+ series)[facility] Start: 76-94-7469Hegozg Vaccines (1 of 2)Zoster Vaccines (1 of 2)[facility]: 28-32-6821JZjW/Tdap/Td Vaccines (1 - Tdap) DTaP/Tdap/Td Vaccines (1 - Tdap)[facility]: 73-50-4342Jeokg screening for proteinCKD: Urine Protein ScreeningSelect Medical Specialty Hospital [facility]: 48-97-3461Ovmhwngjj C screeningHepatitis C ScreeningUnGuernsey Memorial Hospital: 39-33-4517Jeqto panelLipid PanelUnGuernsey Memorial Hospital: 03-03-1946Medicare Annual Wellness VisitMedicare Annual Wellness Visit (AWV)[facility]: 60-02-0811Bfabcrjfa for osteoporosisBone Density ScanMemorial Health System Selby General HospitalDermatopathology examDermatopathology exam Pathology and Cytology Timed Neoplasm of unspecified behavior of bone, soft tissue, and skin Release Upon Ordering for 1 Occurrences starting 01/30/2025[facility] Work Phone: comment on above:Release Upon Ordering for 1 Occurrences starting 01/30/2025MG Breast - bilateral ScreeningBarney Children'S Medical CenterUrine cultureBarney Children'S Medical CenterXR Foot - right GE 3 ViewsBaptist Health Homestead Hospital Immunizations Immunization DateImmunizationNotesCare KuhoejlcLmdfkbef36-29-4273Qdebmn-SapUXkln COVID-19 Vacc 30 MCG/0.3ML Intramuscular SuspensionMarcia E Tomlin Work Phone: mpR[facility] [address] DO Work Phone: [phone]-NvpNUvoh COVID-19 Vacc 30 MCG/0.3ML Intramuscular SuspensionMarcia E Tomlin Work Phone: [facility]05-03-2021Pfizer- BioNTech COVID-19 Vacc 30 MCG/0.3ML Intramuscular SuspensionMarcia E Tomlin Work Phone: [facility]12-27-2019 pneumococcal polysaccharide vaccine, 23 valentMD Alexander Tomlin Work Phone: [facility]12-10-2016influenza virus vaccine, unspecified formulationMD Alexander Tomlin Work Phone: [facility]12-08-2016 pneumococcal conjugate vaccine, 13 valentMD Alexander Tomlin Work Phone: [facility]06-11-2015 pneumococcal conjugate vaccine, 13 valentMarcia E Tomlin Work Phone: [phone]-PtchyHendricks Community Hospital 288 DO Work Phone: [phone]) [phone]bpbqfle polysaccharide vaccine, 23 valClarita Aparicio Tomlin Work Phone: [phone]-Fxkir [facility] [address] DO Work Phone: Payers DatePayer CategoryPayerPolicy [id number] supplemental policy (as second payer)GENERIC MEDICARE SUPPLEMENT [id number]-bzu [id number] Health InsuranceFORD CLIFF LIFE INSURANCE [id number] 2012Medicare [id number] [id number] .1.501272.4050-03-1946 [id number] 2.16.840.1.577578.3.57[id number] 2.16.840.1.885683.3.579.[id number] 2.16.840.1.170440.3.57[id number] 2.16.840.1.562215.3.579.[id number] 2.16.840.1.137445.3.579.2.0[id number] 2.16.840.1.556236.3.57[id number] 2.16840.1.772034.3.579.2.62169-29-4169Qsfgcjw5142709 2.16840.1.935717.3.579.2.27862-99-8699Neojjgj71283601 2.16840.1.497930.3.57[id number] 2.16840.1.818250.3.579.2.07[id number] 2.16840.1.585165.3.57[id number] 2.16840.1.077595.3.579.[id number] 2.16840.1.724048.3.579.[id number] 2.16840.1.597256.3.579.2.0[id number] 2.16840.1.376404.3.57[id number] 2.16.840.1.203766.3.57[id number] 2.16.840.1.719813.3.57[id number] 2.16.840.1.403126.3.57[id number] 2.16.840.1.602880.3.579.[id number] 2.16.840.1.325405.3.57[id number] 2.840.1.635615.3.579.2.531 Social History DateTypeDetailFacilityUnknown if ever smokedNoresearch psychiatric center [employer] Other Start: 11-28-2023 End: 94-58-3894Hnc Assigned At BirthUnCleveland Clinic Akron GeneralStart: 11-28-2023 End: 49-01-8795Sniqbqo ingestionAlcohol ingestionMemorial Health System Selby General HospitalComment on above:couple weekly whiskey;coffee daily;Start: 1945 Sex Assigned At BirthSycamore Medical Centertart: 05-04-2023 End: 54-11-1140Jwjahxl smoking status NHISNever smoked tobaccoNOMS Healthcare Start: 05-04-2023 End: 76-45-3364Rxypmqd use and exposureSmokeless tobacco non-userNOMS Healthcare Start: 57-99-0935Dmt assigned at birthNot on fileNOMS HealthcareStart: 09-09-2024 End: 33-62-2124Ebxdhpmsb beverage intakeCurrent drinker of alcohol (finding) [facility] Work Phone: Start: 08-30-2024 End: 10-90-9940Mzjtmxmj to SARS-CoV-2 (event)Not sureUnCleveland Clinic Akron GeneralStart: 11-30-2024 End: 86-51-3406Zfcvvkkk to SARS-CoV-2 (event)Unable to assessMemorial Health System Selby General Hospital Work Phone: Start: 01-30-2025 End: 06-97-2742Zajfkomtr beverage intakeDeNewport Medical Center smoking status NHISUnknown if ever smokedOhiohealth Doctors Hospital Work Phone: SexFemale (finding)[facility] Clinical Notes 01-02-2023 to 08-05-2025 Note Date & OriaEweoQumggous19-49-5517 NoteMercy Health [facility] 07-08-2025 Evaluation note* Diagnosis Onset Date Resolution Status Admit Date Acute combined systolic (congestive) and diastolic (congestive) heart failure acuteSeptember 2024 10:29amChronic systolic CHF (congestive heart failure) acuteSeptember 2024 10:29amNSTEMI (non-ST elevated myocardial infarction) acuteSeptember 2024 10:29amSarcoidosisacuteSeptember 2024 10:29am Screening mammogram for breast canceracuteSeptember 2024 10:29amMass of right footacuteOctober 2024 1:02pm [facility] Work Phone: 1(909) 600-996607-21-2025 NoteMercy Health U[facility]ana Hospital 05-19-2025 NoteMercy Health Urbana Hospital06-26-2025 History of Present illness Narrative* Choco Landaverde MD - 04/24/2025 1:20 PM EDT Follow up Diagnosis: Actinic Keratosis Location: glabella [...] ACTINIC KERATOSIS (3) Glabella, Left Forehead, Left Hinduism Erythematous scaly papules Patient was counseled regarding [...] limited to risks of scarring, darker or instructor nurse pigmentary changes, recurrence, incomplete removal and infection. [...] skin lesion - [place]abella, Left Forehead, Left Hinduism Next Visit: as scheduled documented in this [facility]06-17-2025 Evaluation note* Diagnosis Onset Date Resolution Status Admit Date Acute combined systolic (congestive) and diastolic (congestive) heart failure acuteJune 2024 10:32amChronic systolic CHF (congestive heart failure)acute April 15, 2025 10:32amNSTEMI (non-ST elevated myocardial infarction)acuteJun2024 10:32amSarcoidosisacuteJune 2024 10:32am [facility] Work Phone: 1(529) 312-630905-28-[address] [facility] 03-20-2025 NoteReceived referral for cholelithiasis - currently admitted. Called patient, no answer. LMVM to call office to schedule consult with Dr. Peck regarding gallbladder/cholelithiasis.[facility]05-22-2025 Note [facility]05-22-[address] [facility] Hospital05-22-[address] [facility]05-22-2025 Note [facility]05-21-[address] [facility]05-21-[address] [facility]05-21-2025 Note [facility]05-21-[address] [facility]05-21-2025 Note- see belowUnMercy Health St. Charles Hospital05-21-[address] [facility]05-21-2025 Note- human metapneumovirus positive 03/12 - was placed on ceftriaxone 1 g for potential superimposed bacterial pneumonia in ICU - currently no growth on sputum culture - weaned off steroidsUnMercy Health St. Charles Hospital05-21-2025 Note- unlikely contributing to current clinical presentationUnMercy Health St. Charles Hospital05-21-2025 Note- new onset EF 35% on TTE /15 - GDMT titrated as tolerated - Currently net negative 7.4L - further planning from cardiology service - LifeVest prior to dischargeUnMercy Health St. Charles Hospital05-21-2025 Note [facility]05-21-2025 Note- see aboveUnMercy Health St. Charles Hospital05-21-[address] [facility] 03-19-2025 NoteWriter spoke with Carlyn in registration to have patient's secondary insurance added. Carlyn states that the [employer] has already been added. Clinical Research Nurse will notify patient/family.[facility]05-21-2025 Note [facility]05-21-[address] [facility] Hospital05-21-[address] [facility]05-20-2025 Note- unlikely contributing to current clinical presentationUnMercy Health St. Charles Hospital05-20-2025 Note- new onset EF 35% on TTE 5/15 - GDMT titrated as tolerated - further planning from cardiology service - LifeVest prior to dischargeUnMercy Health St. [facility] Hospital05-20-2025 Note [facility]05-20-2025 Note- see aboveUnMercy Health St. Charles Hospital05-20-[address] [facility] 03-18-[address] [facility]05-20-2025 Note- human metapneumovirus positive 03/12 - was placed on ceftriaxone 1 g for potential superimposed bacterial pneumonia in ICU - currently no growth on sputum culture - wean steroidsUnMercy Health St. 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 Will check back as able. Sita Newman, PTAUnMercy Health St. Charles Hospital05-20-2025 NoteUnMercy [facility]05-20[facility] [facility] 03-18-20[facility] NoteMer[facility]05-19-2025 NoteSW advised that family is requesting SNF. No family at bedside. SW provided list to RN to give to family when they arrive later tonight. SW following. [facility]05-19-[facility] Note- see belowUnMercy Health [facility]05-[facility]2025 NoteMer[facility] 03-17-2025 NoteMer[facility]05-19-2025 Note- human metapneumovirus positive 03/12 - was placed on ceftriaxone 1 g for potential superimposed bacterial pneumonia in ICU - currently no growth on sputum culture - wean steroidsMercy Health Urbana Hospital05-19-2025 Note- unlikely contributing to current clinical presentationUnMercy Health St. [facility] 03-17-2025 Note- new onset EF 35% on TTE 03/13 - GDMT as tolerated - further planning from cardiology service - LifeVest prior to dischargeUnMercy Health [facility]05-19-2025 Note [facility]05-19-[facility] Note- see aboveMercy Health [facility]05-19-2025 NoteMer[facility] 03-17-2025 NoteMer[facility]05-19-2025 NoteMer[facility]05-[facility]-2025 NoteMer[facility] 03-17-2025 NoteMer[facility]05-19-2025 NoteMer[facility]05-19-2025 NoteMer[facility] 03-16-2025 Note-PT/OT - likely deconditioning from ICU - patient also having falls during this hospitalization - patient denies head trauma however obtain CT head as patient is mildly confused todayMercy Health [facility]05-18-2025 NoteMer[facility]05-18-2025 Note- human metapneumovirus positive 03/12 - was placed on ceftriaxone 1 g for potential superimposed bacterial pneumonia in ICU - currently no growth on sputum culture - wean steroidsUnMercy Health St[facility]05-18-2025 NoteMer[facility]05-18-2025 Note- see belowMercy Health [facility]05-18-2025 Note- unlikely contributing to current clinical presentation [facility]05-18-[facility]25 Note- see aboveMercy Health [facility]05-18-2025 Note- new onset EF 35% on TTE 03/13 - GDMT as tolerated - further planning from cardiology serviceUnMercy Health St[facility] 03-16-2025 Note- patient underwent cardiac catheterization 03/14 - LCx 90% stenosis s/p TRIP x 2 - subacute total occlusion RCA s/p TRIP - DAPT with Plavix 1 year and aspirin lifelongUnMer[address] Health [address]05-18-2025 NoteMer[facility]05-18-2025 Note [facility] NoteMer[facility]05-17-2025 Note- patient underwent cardiac catheterization 03/14 - LCx 90% stenosis s/p TRIP x 2 - subacute total occlusion RCA s/p TRIP - DAPT with Plavix 1 year and aspirin lifelongUn[address] [facility]05-17-2025 Note-PT/OT -Check TSHUnMercy Health St[facility]05-17-2025 Note- required intubation with mechanical ventilation with extubation 03/13 - currently on 2 L - wean oxygen as able - appears to be primarily driven by cardiomyopathy however viral pneumonia contributing factor is - pulm consulted for ICU follow-upUnMercy Health St[facility]05-17-2025 Note- see aboveUnMercy Health [facility]05-17-2025 Note- see below [facility]-17-[facility] Note- human metapneumovirus positive 03/12 - was placed on ceftriaxone 1 g for potential superimposed bacterial pneumonia in ICU - currently no growth on sputum culture - wean steroidsUnMercy Health St[facility]05-17-2025 Note- new onset EF 35% on TTE 03/13 - GDMT as tolerated - further planning from cardiology serviceUnMercy Health St[facility] 03-15-2025 Note- unlikely contributing to current clinical presentation [facility]05-17-2025 NoteMer[facility]05-17-2025 NoteMer[facility]05-17-2025 Note [facility]05-16-2025 NoteMer[facility]05-16-2025 NoteMer[facility]05-16-2025 Note [facility]05-15-2025 Note03/13/25 0955 Vent Information Vent ID extubate to 3L NC, pt able to vocalize O2 Delivery Method Nasal cannulaUnMercy Health St[facility]05-15-2025 NoteMer[facility]05-15-2025 NoteProblem: Respiratory - Adult Goal: Achieves optimal ventilation and oxygenation Outcome: ProgressingUnMercy Health St[facility]05-15-2025 NoteMer[facility]05-14-2025 NoteMer[facility] 03-12-2025 NoteMer[facility]05-14-2025 NoteMer[facility]04-03-2025 History of Present illness Narrative* Choco [...] Right arm Examined Wearing fingernail and toenail latvian. Denies dark streaking Left arm Examined Hands [...] Frontal Scalp, Left Nasal Sidewall, Right [place] Erythematous scaly papules Patient was counseled regarding [...] limited to risks of scarring, darker or instructor nurse pigmentary changes, recurrence, incomplete removal and infection. [...] Frontal Scalp, Left Nasal Sidewall, Right [place] 5. Neoplasm of unspecified behavior of bone, [...] keratosis, inflamed Left Lower Leg - Anterior [place] and brown stuck on verrucous scaly papule [...] limited to risks of scarring, darker or instructor nurse pigmentary changes, recurrence, incomplete removal and infection. [...] 1 year skin check documented in this [facility]02-24-2025 History of Present illness Narrative* Kathleen Castro MD - 12/23/2024 12:30 PM EST This is a follow-up from August 2024. Subjective : She just returned from [place]. While she was there she was treated for bronchitis, she is finishing up her steroids and antibiotics. She feels better on the steroids. She had 1 visit with character actor, she is to have a high-resolution CT [...] and 144/84 afterwards. Test was converted to [place] Myoview which reports normal perfusion LVEFof 51% [...] further questions arise, Sincerely, Kathleen Castro MD [facility] Follow up : PRN Provider Attestation - Scribe documentation Scribe Attestation By signing my name below, I, Lacey Ellis JOSHI , Scribe attest that this documentation has been prepared under the direction and in the presence of Kathleen Castro MD. All medical record entries made by the Scribe were at my direction and personally dictated by me. Ihave reviewed the chart and agree that the record accurately reflects my personal performance of the history, physical exam, discussion and plan. documented in this encounterMem[facility] Work Phone: 1(885) 664-803402-24-2025 Instructions* Patient Instructions* Lacey Ladd LPN - [...] ordered as needed only documented in this encounterMemorial Health [facility] Work Phone: 1(325) 312-346002-11-2025 History of Present illness Narrative* James Mo DO - 12/10/2024 8:40 AM EST Images from the original note were not included. Patient: Pilo Gregory [id number] : 1945 -- AGE 78 y.o. Provider: Octaviano [facility] Service Date: 10/15/24 [facility] New Visit Note HISTORY OF PRESENT ILLNESS The patient's referring provider is: No ref. provider found HISTORY OF PRESENT ILLNESS Pilo Gregory is a 78 y.o. female with no significant past medical history, who is a never smoker,who presents to a [facility] for an initial evaluation for shortness of breath. The patient reports that she has sarcoidosis and was told that she has nodules on her chest. I am unable to locate any prior radiology imaging. I have ordered a high-resolution CT scan. The patient will complete this when she returns to [place] next week. Right now she is in [facility]. We will shortly see her thereafter and [...] is a never smoker, whopresents to a [facility] for an initial [...] have any questions please call the office [phone] Thank you for visiting the Pulmonary clinic today! documented in this encounterMemorial [facility] Work Phone: 1(844) 776-560512-17-2024 History of Present illness Narrative* JOSUÉ Vizcarra - 10/15/2024 9:20 AM EST Images from the original note were not included. Patient: Pilo Gregory [id number] : 1945 -- AGE 78 y.o. Provider: Cathy SAMUEL [facility] Location [facility] Service Date: 10/15/24 [facility] New Visit Note HISTORY OF PRESENT ILLNESS The patient's referring provider is: No ref. provider found HISTORY OF PRESENT ILLNESS Pilo Gregory is a 78 y.o. female with no significant past medical history, who is a never smoker,who presents to a [facility] for an initial evaluation for shortness of breath. I have independently interviewed and examined the patient in the office and reviewed available records. Current History HPI: On today's visit, the patient reports coming for a second opinion. She c/o having shortness of breath all the time, fatigue and wheezing since having COVID in 2020. Was seeing Reprographics Technician at [place] who she states started her on Symbicort with no improvement, Symbicort made her throat hoarse. She has since stopped using a long time ago. She has multiple lung nodules, some are calcified, seen Dr. Dayanna Moncada character actor at [place],1.5cm largest nodule bronch was non-diagnostic. Recommend to [...] is a never smoker, whopresents to a [facility] for an initial [...] - will get CT Chest imaging from [place] sent over (last CT Chest 08/2024) - will get set up for bronchoscopy Follow up with Dr. Mo in 1 month If you have any questions please call the office [phone] Thank you for visiting the Pulmonary clinic today! Cathy Benitez CNP [phone] documented in this [facility] Work Phone: 1(198) 313-767411-11-2024 History of Present illness Narrative* Kathleen Castro MD - 09/09/2024 2:15 PM EST Most recent office visit was in February 2023 at which time she was advised for as needed follow-up. Subjective : Accompanied by daughter to the office. Daughter Florence used to be an TANK CAR INSPECTOR at [employer] [facility] [employer]. 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 At times [...] be referred to Dr.Adham Shaun Topete at [facility]. Patient and daughter would very much want this. Follow up : 3 months Provider Attestation - Conchita Gaitan LPN Scribe documentation All medical record entries made by the Scribe were at my direction and personally dictated by me. Ihpedrito reviewed the chart and agree that the record accurately reflects my personal performance of the history, physical exam, discussion and plan. documented in this encounterMemorial [facility] Work Phone: 1(905) 999-798011-11-2024 Instructions* Patient Instructions* Conchita Rodriges LPN - [...] Provided instructions on exercise. documented in this encounterMemorial [facility] Work Phone: 1(459) 756-689011-07-2024 History of Present illness Narrative* Choco Landaverde [...] limited to risks of scarring, darker or instructor nurse pigmentary changes, recurrence, incomplete removal and infection. [...] Next Visit: as scheduled documented in this encounterSt. Louis Behavioral Medicine [id number] Evaluation note* Encounter Date Diagnosis Assessment Notes Treatment Notes Treatment Clinical Notes Mar, Inflamed seborrheic keratosis (I CD-10 - L82.0) cryotherapy on lesion [facility] [email or web address] Other 06-09-2023 Evaluation note* Encounter Date Diagnosis Assessment Notes Treatment Notes Treatment Clinical Notes Mar, Inflamed seborrheic keratosis (I CD-10 - L82.0) cryotherapy on lesion. There is no tick bite. [facility] [email or web address] Other 03-21-2023 Evaluation note* Encounter Date Diagnosis Assessment Notes Treatment Notes Treatment Clinical Notes Dec, Dyspnea, unspecified (ICD-10 - R 06.00) Dec,Other abnormalities of breathing (ICD-10 - R06.89) Dec,bnormal EKG (ICD-10 - R94.31) [facility] [email or web address] Other 03-06-2023 Evaluation note* Encounter Date Diagnosis Assessment Notes Treatment Notes Treatment Clinical Notes Dec, Leg edema (ICD-10 - R60.0) Discussed differential including heart failure. Pt would like to get tests to have a cause for her ongoing symptoms. Dec,yspnea on exertion (ICD-10 - R06.09)PFT this week. Complete tests as ordered. Pt agrees. [facility] [email or web address] Other Chief complaint Narrative - ReportedPATRICREGINA GREGORY is being seen for a consultation for.[facility] DO Work Phone: Evaluation noteNo [employer] Other Evaluation note* Diagnosis Onset Date Resolution Status Calcified lymph nodes acuteMultiple pulmonary nodulesacute [facility] Work Phone: Evaluation note* Diagnosis Onset Date Resolution Status Urinary frequency acute [facility] Work Phone: Evaluation note* Diagnosis Other atopic dermatitis- Primary Bug bite without infection, initial encounter Actinic keratosis documented in this encounter [facility] HealthcareEvaluation [facility]* Diagnosis SOTO (dyspnea on exertion) Other dyspnea and respiratory abnormality Mixed hyperlipidemia Never smoked cigarettes Body mass index (BMI) 28.0-28.9, adult CRLD (chronic restrictive lung disease) Other diseases of lung, not elsewhere classified Personal history of COVID-19 Stage 3a chronic kidney disease (Multi) documented in this encounter [facility] Work Phone: Evaluation note* Diagnosis Sarcoid- Primary Sarcoidosis Shortness of breath documented in this encounter [facility] Work Phone: Evaluation note* Diagnosis Sarcoid Sarcoidosis documented in this encounter [facility] Work Phone: Evaluation note* Diagnosis Sarcoidosis- Primary documented in this encounter [facility] Work Phone: Evaluation note* Diagnosis CRLD (chronic restrictive lung disease)- Primary Other diseases of lung, not elsewhere classified SOTO (dyspnea on exertion) Other dyspnea and respiratory abnormality Stage 3a chronic kidney disease (Multi) Never smoked cigarettes Mixed hyperlipidemia Body mass index (BMI) 28.0-28.9, adult documented in this encounter [facility] Work Phone: Evaluation note* Diagnosis Seborrheic keratosis- Primary Xerosis cutis Other specified disease of sebaceous glands Lentigines Actinic keratosis Neoplasm of unspecified behavior of bone, soft tissue, and skin Capillary angioma Nevus, non-neoplastic Sebaceous hyperplasia of face Seborrheic keratosis, inflamed Personal history of other malignant neoplasm of skin documented in this encounter [facility] HealthcareEvaluation note* Diagnosis Seborrheic keratosis- Primary Actinic keratosis documented in this encounter [facility] HealthcareHistory general Narrative - Reported* Type Description Date Medical History History of COVID-19 Medical HistoryShortness of breathMedical HistoryMultiple pulmonary nodules Medical HistoryMyalgiaMedical HistoryDyspnea on exertionMedical HistoryAbdominal pain, epigastricMedical HistoryCALCIFIED LYMPH NODESMedical HistoryAbnormal x- ray of lungMedical HistoryINCREASED SERUM LIPIDSSurgical HistoryC-SECTION X3 Surgical HistoryD&CSurgical HistoryT&AHospitalization HistorySEE SURGICAL HX [facility] [email or web address] Other History of Present illness Narrative* 77-year-old [...] times, but not consistently, and that the character actor felt that her shortness of breath is [...] that was done on 01/16/2023 at [facility]. * Assessment: * 1. 77-year-old with [...] arise, * Sincerely, * Kathleen Castro MD [facility] [address] DO Work Phone: Hospital Discharge instructionsAmbulatory Orders* Referral to Podiatry Time Frame: 08/19/25, Location: None [facility] Work Phone: reason for referral (narrative)No reason for referral information availableOhiohealth Doctors Hospital Work Phone: reason for visit Narrative* PFT (Routine) - Authorized SpecialtyDiagnoses / ProceduresReferred By ContactReferred To Contact Diagnoses Sarcoid Procedures Complete Pulmonary Function Test Pre/Post Bronchodilator (Spirometry Pre/Post/DLCO/Lung Volumes) Cathy Benitez, TIMBER HEWER-MANUGRAPHER [address] [facility] Pulmonary Medicine, [facility] [address], [facility] [address] [place] [address] Phone: tel: fax: Referral IDStatusReasonStart DateExpiration DateVisits RequestedVisits [id number]/17/202412/17/202511 [facility] Work Phone: Summary Purpose Family History Unknown Family Member Name Dates Details Family history of congestive heart failure: Father(V17.49, Z82.49) Status:ActiveFamily history of malignant neoplasm: Mother(V16.9, Z80.9) Status:Active Unknown Family Member Name Dates Details Family history of congestive heart failure: Father(V17.49, Z82.49) Status:ActiveFamily history of malignant neoplasm: Mother(V16.9, Z80.9) Status:Active Unknown Family Member Name Dates Details Family history of congestive heart failure: Father(V17.49, Z82.49) Status:ActiveFamily history of malignant neoplasm: Mother(V16.9, Z80.9) Status:Active Relationship Condition Age at Onset Recorded Date/T martin daughter Hypertension Unknown fatherDeceasedUnknownNot SpecifiedDeceasedUnknownMalignant neoplasmUnknown natural sonHypertensionUnknown Relationship Condition Age at Onset Recorded Date/T martin daughter Hypertension Unknown fatherDeceasedUnknownmotherDeceasedUnknownMalignant neoplasmUnknownson HypertensionUnknown Advance Directives Advance Directive Response Recorded Date/ Time Advance Directives No November 28, 2018 12:00pm Reason for Referral Reason *FU 01/25 Last OV, echo, EKG, labs - c/o dyspnea on exertion and LE edema. Diagnosis 1 Abnormal EKG (R94.31 ) Referral Organization [facility] Medical vito Referring Provider First Name Alexander Referring Provider Last Name Nabor Referring Provider Specialty Family [facility] Referred Organization [facility] enter Referred Provider Brandt Ramírez Referred Address [address] [facility] [address] [place] [address] Referred Provider Specialty Cardiology Referral Priority Routine [...] right foot August 19, 2025 1 :02pm Chief Complaint Admit Date Amb Documentation April 10, 2025 12:5 6pm [place] Discharge April 15, 2025 10 :32am 3 [...] section and content) DATE CREATED AUTHOR 10/20/2018 [facility] DATE CREATED AUTHOR AUTHOR'S ORGANIZ ATION 02/13/2023 [facility] DATE CREATED AUTHOR AUTHOR'S ORGANIZ ATION 02/14/2023 [employer] DATE CREATED AUTHOR AUTHOR'S ORGANIZ ATION 03/03/2023 [facility] DATE CREATED AUTHOR AUTHOR'S ORGANIZ ATION 04/07/2023 [facility] DATE CREATED AUTHOR AUTHOR'S ORGANIZ ATION 01/26/2024 [facility] DATE CREATED AUTHOR AUTHOR'S ORGANIZ ATION 10/22/2024 [facility] DATE CREATED AUTHOR AUTHOR'S ORGANIZ ATION 12/24/2024 [facility] DATE CREATED AUTHOR AUTHOR'S ORGANIZ ATION 01/01/2025 [facility] DATE CREATED AUTHOR AUTHOR'S ORGANIZ ATION 03/13/2025 [facility] DATE CREATED AUTHOR AUTHOR'S ORGANIZ ATION 04/25/2025 [facility] DATE CREATED AUTHOR AUTHOR'S ORGANIZ ATION 08/13/2025 [facility] REASON FOR VISIT (unrecogniz ed section and content) ReasonCommentsFollow-up1 yearSpecialtyDiagnoses / ProceduresReferred By Contact Referred To Contact Diagnoses SOTO (dyspnea on exertion) Procedures ECG 12 Lead Kathleen Castro MD [address] [place] [address] Phone: tel: fax: Referral IDStatusReasonStart DateExpiration DateVisits RequestedVisits [id number]/11/202411/11/[id number] EvalSecond opinion. Covid 2020, Shortness of breathReasonCommentsfollow up sarcodosisReason CommentsFollow-up3 monthSpecialtyDiagnoses / ProceduresReferred By Contact Referred To ContactCardiology Diagnoses Mixed hyperlipidemia Procedures Follow Up In Cardiology Kathleen Castro MD [address] [place] [address] Phone: tel: fax: Kathleen Castro MD [address] [place] [address] Phone: tel: fax: Referral IDStatusReasonStart DateExpiration DateVisits RequestedVisits [id number]/11/202411/11/[id number]-bb Suspicious Skin Lesion Care Teams (unrecognized sec tion and content) Team Status: Active Member Role Status Dates Alexander Tomlin MD Primary Care Provider Active Team Status: Active Member Role Status Dates Alexander Tomlin MD Primary Care Provider Active Start: July 04, 2024 [facility] , DOAttending ProviderActiveStart: July 04, 2024 Team Status: Inactive Member [...] Start: January 22, 2024 End: January 22, 2024[facility] , DOAttending ProviderActiveStart: January 22, 2024 End: January 22, 2024Team MemberRelationshipSpecialtyStart [place] [address] [place] [phone] PCP - General01/18/23Team MemberRelationshipSpecialtyStart [place] [address] [place] [address] PCP - General01/18/23Team MemberRelationshipSpecialtyStart [place] [address] [place] [phone] PCP - General3Team MemberRelationshipSpecialtyStart [place] [address] [place] [address] [facility] - General01/18/23 Team Status: Active Member Role Status Dates Alexander Tomlin MD Primary Care Provider Active Start: April 10, 2025 Lory Noguera CMAAttending ProviderActiveStart: April 10, 2025 Team Status: Inactive Member Role Status Dates Alexander Tomlin MD Primary Care Provider Active Start: April 15, 2025 End: April 15, 2025Alexander Tomlin MDAttending ProviderActiveStart: April 15, 2025 End: April 15, 2025 Team Status: Active Member Role Status Dates Alexander Tomlin MD Primary Care Provider Active Start: May 14, 2025 Abraham Blackmon NP-CAttending ProviderActiveStart: May 14, 2025 Team Status: Active Member Role Status Dates Alexander Tomlin MD Primary Care Provider Active Start: May 21, 2025 Alfred Stern MDAttending ProviderActiveStart: May 21, 2025 Team Status: Inactive Member Role Status Marvin Tomlin MD Primary Care Provider Active Start: July 08, 2025 End: July 08, 2025Pankaj Dasilvaending ProviderActiveStart: July 08, 2025 End: July 08, 2025 Team Status: Active Member Role/Relationship Status Marvin Tomlin MD Primary Care Provider Active Team Status: Active Member Role/Relationship Status Marvin Tomlin MD Primary Care Provider Active Start: May 21, 2025 Alfred Stern MDAttending ProviderActiveStart: May 21, 2025 Team Status: Inactive Member Role/Relationship Status Marvin Tomlin MD Primary Care Provider Active Start: July 08, 2025 End: July 08, 2025Zaira Dasilva ProviderActiveStart: July 08, 2025 End: July 08, 2025 Team Status: Inactive Member Role/Relationship Status Marvin Tomlin MD Primary Care Provider Active Start: August 19, 2025 End: August 19, 2025Pankaj Dasilvaending ProviderActiveStart: August 19, 2025 End: August 19, 2025 Goals (unrecognized section and content) Goals [...] BE BASED ON THE PRIMARY CLINICAL RECORDS. [facility] [employer] [facility]. provides no warranty or guarantee of the accuracy or completeness of information in this document.
== END 2025-08-20 10:29 | disposition home or self-care (01) ==
LOC: RAD 10:32
PROVIDERS: PCP Family Medicine; Visit Provider Family Medicine
DX: R22.41 Localized swelling, mass and lump, right lower limb (principal)
CPT/HCPCS: 73630